=== PATIENT | female | born 1990 | race Caucasian/White ===

== ENCOUNTER → 2017-05-08 14:27 | Outpatient (CLI) | payer MEDICAID, SELFPAY | PROVIDERS: Family Provider Internal Medicine; PCP Internal Medicine; Visit Provider Physician Assistant | DX: J02.9 Acute pharyngitis, unspecified (principal) | CPT/HCPCS: 87081 ==

== ENCOUNTER 2017-05-28 15:42 | Emergency (ER) | payer MEDICAID, SELFPAY ==
[2017-05-28 15:42] VITALS: BP 159/96; PULSE 119; RESP 16; TEMP 36.4; O2SAT 100; BMI 41.0
--- NOTE | 2017-05-28 15:50 | RAD_ITS ---
STUDY: X-RAY - LEFT ANKLE REASON FOR EXAM: Female, 26 years old. Lateral ankle pain. TECHNIQUE: 3 view(s) of the ankle. COMPARISON: None. FINDINGS: Normal visualized distal tibia and fibula. Normal medial and lateral malleoli. Normal tibiotalar articulation and ankle mortise. Normal visualized talus and calcaneus. The visualized subtalar, talonavicular, calcaneocuboid and tarsal articulations are normal. Soft tissue swelling. RAD/Ankle min 3 Views IMPRESSION: Soft tissue swelling with no underlying bone or joint abnormality. Electronically Signed: Yamilet Fowler MD at 16:42 EDT , Service support ,
--- NOTE | 2017-05-28 15:55 | ED.DCSUM_ITS ---
- ER Visit Summary Date of Service: 05/28/17 Chief Complaint: Left ankle pain History of Present Illness: The patient is a 26 F who states that for the past 4 days she has had pain over the anterior lateral aspect of her left ankle. She denies any known trauma. She went to urgent care she tells me that they informed her that stops doing x-rays. She notes no history of gout or other arthropathies. She denies any fevers or rashes. Physical Examination: Afebrile vital signs are stable Minimal swelling and tenderness palpation over the lateral malleolus in the anterior joints. No fifth metatarsal pain. No fibular head pain there is no erythema. Neurovascular intact. Test Results: The ankle were obtained which were negative. Emergency Department Course and Treatment: She will use Pepe wrap ibuprofen and rest. Follow-up with her doctor if not improved in 14 days Impression: 1. Left ankle pain This note was generated with [employer] dictation software. It may contain incorrect words, spelling, and punctuation that were not noted in review of the chart prior to signing ED Disposition - Plan for ED Patient: Disposition: Home or Assisted Living Chief Complaint: Lower Extremity Injury Instructions: ED Sprain Ankle W X Ray Referrals: Jennifer Dia MD [Primary Care Provider] - 10-14 Days if not better
== END 2017-05-28 16:29 | disposition home or self-care (01) ==
LOC: ED 16:18
PROVIDERS: Emergency Provider Emergency Medicine; Family Provider Internal Medicine; PCP Internal Medicine
DX: M25.572 Pain in left ankle and joints of left foot (principal); Z79.51 Long term (current) use of inhaled steroids
CPT/HCPCS: 73610; 99282

== ENCOUNTER 2017-11-12 17:26 | Emergency (ER) | payer MEDICAID, SELFPAY ==
[2017-11-12 17:27] VITALS: BP 138/82; PULSE 102; RESP 18; TEMP 36.5; O2SAT 98; BMI 39.6
--- NOTE | 2017-11-12 18:19 | ED.VISSUMM ---
- ER Visit Summary Date of Service: 11/12/17 Chief Complaint: Back pain History of Present Illness: The patient is a [address] Dia. She has back pain that began 2 weeks ago. Says sharp pain in 7-10 currently and at worst. Is worsened by bending and sitting down. She taken Tylenol without relief. She has tingling in her right first and second toes that comes and goes. She denies any radiation to her legs. No problems with her bowels or her bladder. No groin numbness. Patient denies any recent trauma. No fall, MVA, or change in activity. Physical Examination: Vitals: Stable. Afebrile. General: A&O x 3. NAD. Cardiovascular exam: Regular rate and rhythm, no murmur, rub or gallop. Respiratory exam: Clear to auscultation bilaterally. No wheezes or stridor. Abdominal exam: Soft, nontender, nondistended, normal bowel sounds. No peritoneal signs. Back: Diffuse moderate tenderness to palpation over the lumbar spine and the paraspinous musculature in the lumbar region. No point tenderness. Negative straight leg bilaterally. 5/5 DF, PF, EHL bilaterally. Normal sensation to light touch throughout. Extremity: No clubbing, cyanosis, or edema. Emergency Department Course and Treatment: An [facility] report was obtained which shows she has had one prescription for opiates in the past year. She is treated with Toradol IM, Zofran and Hostetter p.o. She is resting comfortably. Treatment Plan: Patient will be discharged with Hostetter and naproxen. Instructed follow-up Dr. Dia in 1 week if not improving. Return to the emergency department for any worsening symptoms. Disposition: To home in improved and stable condition. Impression: 1. Low back pain, acute. This note was generated with [employer] dictation software. It may contain incorrect words, spelling, and punctuation that were not noted in review of the chart prior to signing ED Disposition - Plan for ED Patient: Disposition: Home or Assisted Living Chief Complaint: Back Instructions: ED Neck Back Pain General Prescriptions: Ondansetron [Zofran Odt] 4 mg PO Q8H PRN PRN #10 tablet PRN Reason: Nausea Hydrocodone/Acetaminophen [Hostetter 5-325 Tablet] 1 - 2 each PO 4X/DAY PRN PRN 3 Days #12 tablet PRN Reason: Pain Naproxen [Naprosyn] 500 mg PO BID #14 tablet Referrals: Jennifer Dia MD [Primary Care Provider] - 1 Week if not improving
--- NOTE | 2017-11-12 18:22 | ED.DCSUM_ITS ---
- ER Visit Summary Date of Service: 11/12/17 Chief Complaint: Back pain History of Present Illness: The patient is a [address] Dia. She has back pain that began 2 weeks ago. Says sharp pain in 7-10 currently and at worst. Is worsened by bending and sitting down. She taken Tylenol without relief. She has tingling in her right first and second toes that comes and goes. She denies any radiation to her legs. No problems with her bowels or her bladder. No groin numbness. Patient denies any recent trauma. No fall, MVA, or change in activity. Physical Examination: Vitals: Stable. Afebrile. General: A&O x 3. NAD. Cardiovascular exam: Regular rate and rhythm, no murmur, rub or gallop. Respiratory exam: Clear to auscultation bilaterally. No wheezes or stridor. Abdominal exam: Soft, nontender, nondistended, normal bowel sounds. No peritoneal signs. Back: Diffuse moderate tenderness to palpation over the lumbar spine and the paraspinous musculature in the lumbar region. No point tenderness. Negative straight leg bilaterally. 5/5 DF, PF, EHL bilaterally. Normal sensation to light touch throughout. Extremity: No clubbing, cyanosis, or edema. Emergency Department Course and Treatment: An [facility] report was obtained which shows she has had one prescription for opiates in the past year. She is treated with Toradol IM, Zofran and Alva p.o. She is resting comfortably. Treatment Plan: Patient will be discharged with Alva and naproxen. Instructed follow-up Dr. Dia in 1 week if not improving. Return to the emergency department for any worsening symptoms. Disposition: To home in improved and stable condition. Impression: 1. Low back pain, acute. This note was generated with [employer] dictation software. It may contain incorrect words, spelling, and punctuation that were not noted in review of the chart prior to signing ED Disposition - Plan for ED Patient: Disposition: Home or Assisted Living Chief Complaint: Back Instructions: ED Neck Back Pain General Prescriptions: Ondansetron [Zofran Odt] 4 mg PO Q8H PRN PRN #10 tablet PRN Reason: Nausea Hydrocodone/Acetaminophen [Alva 5-325 Tablet] 1 - 2 each PO 4X/DAY PRN PRN 3 Days #12 tablet PRN Reason: Pain Naproxen [Naprosyn] 500 mg PO BID #14 tablet Referrals: Jennifer Dia MD [Primary Care Provider] - 1 Week if not improving
[2017-11-12] MEDS: HYDROcodone Bitartrate/Apap 5/325 Tablet PO (18:24)
[2017-11-12] MEDS: Ketorolac 60 MG/2 ML Vial IM (18:25)
[2017-11-12] MEDS: Ondansetron ODT 4 MG Tablet PO (18:25)
[2017-11-12 18:55] VITALS: PULSE 90; RESP 16
== END 2017-11-12 18:56 | disposition home or self-care (01) ==
LOC: ED 18:21
PROVIDERS: Emergency Provider Emergency Medicine; Family Provider Internal Medicine; PCP Internal Medicine
DX: M54.5 Low back pain (principal)
CPT/HCPCS: 96372; 99283

== ENCOUNTER 2018-01-02 18:27 | Emergency (ER) | payer MEDICAID, SELFPAY ==
[2018-01-02 18:27] VITALS: BP 149/92; PULSE 107; RESP 18; TEMP 36.2; O2SAT 99; BMI 37.0
--- NOTE | 2018-01-02 18:38 | ED.VISSUMM ---
- ER Visit Summary Date of Service: 01/02/18 Chief Complaint: Skin rash and itching History of Present Illness: The patient is a 27 F no significant past medical history. Currently on no medications [id number] nor prescription. States about 1-2 hours ago developed a rash that is red in some places raised and itching. Denies any trouble breathing or swallowing. No swelling to her lips or tongue. No prior history. No known allergies. States she ate pizza today and drank some cola. Denies any new soaps, colognes or detergents. Physical Examination: Well-appearing young female. Vital signs are stable afebrile. Pulse ox 9 9% on room air no signs of hypoxia. No distress. H EENT exam unremarkable. Neck nontender no lymphadenopathy. Lungs clear to auscultation bilaterally. Heart regular rhythm no murmur. Abdomen soft nontender. She is moving all 4 extremities. They are neurovascularly intact. Back nontender. Neurologic exam normal. Skin she is a red rash on both upper extremities and her back. There are hives on her abdominal wall. There is no sloughing of skin. There is no petechiae or purpura. There are no vesicles. This is consistent with a generalized allergic reaction. Test Results: None Emergency Department Course and Treatment: Prednisone 60 mg here. Treatment Plan: Prednisone 40 mg daily until rash resolved. Benadryl for itching. Return if worse. Disposition: Discharge Impression: Acute generalized allergic reaction of uncertain etiology This note was generated with [employer] dictation software. It may contain incorrect words, spelling, and punctuation that were not noted in review of the chart prior to signing ED Disposition - Plan for ED Patient: Chief Complaint: Rash Referrals: Jennifer Dia MD [Primary Care Provider] -
--- NOTE | 2018-01-02 18:41 | ED.DCSUM_ITS ---
- ER Visit Summary Date of Service: 01/02/18 Chief Complaint: Skin rash and itching History of Present Illness: The patient is a 27 F no significant past medical history. Currently on no medications eizh-shi-kqwvles nor prescription. States about 1-2 hours ago developed a rash that is red in some places raised and itching. Denies any trouble breathing or swallowing. No swelling to her lips or tongue. No prior history. No known allergies. States she ate pizza today and drank some cola. Denies any new soaps, colognes or detergents. Physical Examination: Well-appearing young female. Vital signs are stable afebrile. Pulse ox 9 9% on room air no signs of hypoxia. No distress. H EENT exam unremarkable. Neck nontender no lymphadenopathy. Lungs clear to auscultation bilaterally. Heart regular rhythm no murmur. Abdomen soft nontender. She is moving all 4 extremities. They are neurovascularly intact. Back nontender. Neurologic exam normal. Skin she is a red rash on both upper extremities and her back. There are hives on her abdominal wall. There is no sloughing of skin. There is no petechiae or purpura. There are no vesicles. This is consistent with a generalized allergic reaction. Test Results: None Emergency Department Course and Treatment: Prednisone 60 mg here. Treatment Plan: Prednisone 40 mg daily until rash resolved. Benadryl for itching. Return if worse. Disposition: Discharge Impression: Acute generalized allergic reaction of uncertain etiology This note was generated with [employer] dictation software. It may contain incorrect words, spelling, and punctuation that were not noted in review of the chart prior to signing ED Disposition - Plan for ED Patient: Chief Complaint: Rash Referrals: Jennifer Dia MD [Primary Care Provider] -
--- NOTE | 2018-01-02 18:41 | ED.DEP ---
ED Disposition - Plan for ED Patient: Disposition: Home or Assisted Living Chief Complaint: Rash Instructions: ED Allergic Reaction General Other Prescriptions: Prednisone [Deltasone] 40 mg PO DAILY 6 Days tab Referrals: Jennifer Dia MD [Primary Care Provider] - As Needed Additional Instructions: Prednisone 40 mg once a day. May stop 1 day after rash is gone. Oral Benadryl for itching and will help resolve the rash. Return if worse or follow-up with your doctor.
[2018-01-02] MEDS: predniSONE 20 MG Tablet 60 MG PO (18:47)
[2018-01-02 18:53] VITALS: PULSE 99; RESP 17; O2SAT 99
== END 2018-01-02 18:53 | disposition home or self-care (01) ==
LOC: ED 18:50
PROVIDERS: Emergency Provider Emergency Medicine; Family Provider Internal Medicine; PCP Internal Medicine
DX: T78.40XA Allergy, unspecified, initial encounter (principal)
CPT/HCPCS: 99283

== ENCOUNTER 2018-04-05 16:33 | Emergency (ER) | payer MEDICAID, SELFPAY ==
[2018-04-05 16:34] VITALS: BP 166/98; PULSE 113; RESP 18; TEMP 36.4; O2SAT 98; BMI 41.0
[2018-04-05 16:43] VITALS: PULSE 127; RESP 18; O2SAT 99
--- NOTE | 2018-04-05 16:58 | RAD_ITS ---
STUDY: X-RAY CHEST REASON FOR EXAM: Female, 27 years old. Chest pain TECHNIQUE: Frontal and lateral views of the chest COMPARISON: 03/12/2017 FINDINGS: The lungs are clear. There are no pleural effusions. There is no pneumothorax. The heart is normal in size. The visualized osseous structures are within normal limits. RAD/Chest PA and Lateral IMPRESSION: No acute thoracic pathology. Electronically Signed: Dillon Busby, at 17:46 EST Tel , Service support ,
--- NOTE | 2018-04-05 16:58 | EKG12_ITS ---
Test Reason : GEN ILLNESS Blood Pressure : / mmHG Vent. Rate : 092 BPM Atrial Rate : 092 BPM P-R Int : 150 ms QRS Dur : 072 ms QT Int : 354 ms P-R-T Axes : 017 010 007 degrees QTc Int : 437 ms Normal sinus rhythm Nonspecific T wave abnormality Abnormal ECG Confirmed by WARREN ZHAO, SALEEM ([id number]), graphic editor GAUTAM ELLSWORTH ([id number]) on 04/11/2018 2:41:05 PM Referred By: KIKO Confirmed By:SALEEM KELLEY MD
[2018-04-05] MEDS: Aspirin 81 MG TAB.CHEW 324 MG PO (17:26)
[2018-04-05 17:35] LABS: Absolute Lymphocyte Count 4.99 X10^3/ul (0.83-4.51); Basophil# 0.02 X10^3/uL; Basophil% 0.2 % (0-1); Eosinophil# 0.37 X10^3/uL; Eosinophils% 3.1 % (0-5); Hematocrit 44.8 % (37-47); Hemoglobin 15.4 g/dl (12.0-15.0); Lymphocyte # 4.99 X10^3/ul (4.0); Lymphocyte % 41.2 % (19-41); Mean Corp Hgb Conc 34.4 g/gl (32-36); Mean Corpuscular Hgb 29.9 pg (27.0-32.0); Mean Platelet Vol. 9.3 fl (6.2-12.0); Monocyte# 0.66 X10^3/uL; Monocyte% 5.5 % (0-10); Neutrophil # 6.04 X10^3/uL (2.7-7.7); Neutrophil % 49.8 % (47-70); Platelet Count 321 K/mm3 (150-450); RBC Distribution Width CV 13.1 % (11.6-14.6); RBC Distribution Width SD 40.6 fl (35.1-43.9); Red Blood Count 5.15 M/mm3 (4.2-5.4); White Blood Count 12.1 K/mm3 (4.4-11.0)
[2018-04-05 17:36] LABS: POSITIVE COUNT NO; POSITIVE DIFFERENTIAL NO; POSITIVE MORPHOLOGY NO
[2018-04-05 17:51] LABS: Anion Gap 8 (5-15); BUN 11 mg/dL (7-18); BUN/Creat Ratio 14.1 RATIO (10-20); Calcium,Total 9.3 mg/dL (8.5-10.1); Chloride 107 mmol/L (98-107); Creatinine, Serum 0.78 mg/dL (0.55-1.02); EST Glomerular Filtration Rate 95 mL/min (>60); Est Glom Filt Rate - Afr Amer 114 mL/min (>60); Estimated Creatinine Clearance 78.51 ml/min; Glucose 95 mg/dL (74-106); Potassium 3.4 mmol/L (3.5-5.1); Sodium Level 141 mmol/L (136-145)
[2018-04-05 17:56] LABS: D-Dimer Quantitative (DVT/PE) 0.31 FEU/ug/m (0.27-0.49)
--- NOTE | 2018-04-05 18:40 | CT_ITS ---
STUDY: CTA CHEST REASON FOR EXAM: Female, 27 years old. Chest pain RADIATION DOSAGE (If Supplied By Facility): CTDIvol = ( 14.8 ) mGy, DLP = ( 669.97 ) mGycm TECHNIQUE: The examination was performed with the intravenous administration of 100 ml of Isovue 370 contrast material. Post-processing of the angiographic images was performed, with multiplanar reformation and 3D reconstruction. Individualized dose optimization techniques were used for this CT. COMPARISON: None. FINDINGS: Normal enhancement of the main pulmonary artery and right and left pulmonary arteries. Normal enhancement of the bilateral peripheral pulmonary arteries. There is no demonstrated pulmonary embolism. Normal thoracic aorta and visualized great vessels. There is no demonstrated aortic dissection. Normal heart and pericardium. Normal mediastinum. Normal hilar regions. Normal visualized trachea and bronchi. The lungs are well expanded. Normal pulmonary parenchyma. Normal pleura. Normal chest wall structures. Normal osseous structures. Normal visualized upper abdomen. CT/CTA Chest W/WO Contrast IMPRESSION: Normal CTA chest examination, without a demonstrated pulmonary embolism or arterial dissection. Electronically Signed: Dillon Busby, at 19:33 EST Tel , Service support ,
[2018-04-05] MEDS: 0.9% Normal Saline 1,000 ML 999 ML IV (19:07)
[2018-04-05 19:10] VITALS: BP 147/86; PULSE 99; RESP 18; O2SAT 95
[2018-04-05 19:16] LABS: Erythrocyte Sedimentation Rate 15 mm/hr (0-20)
--- NOTE | 2018-04-05 20:02 | ED.DCSUM_ITS ---
- ER Visit Summary Date of Service: 04/05/18 Chief Complaint: Chest pain History of Present Illness: The patient is a 27 F presenting for evaluation secondary to headache and chest pain. Patient reports that today she had an onset of a headache. This was gradual in onset, and is a generalized headache that was refractory to Tylenol. Patient reports that she then developed some anterior sharp chest pain. She reports that it is worse with breathing. Patient states that she has had a cough of the course last 3 days but denies any presence of fever. She denies any dyspnea. She denies any history of DVT or PE. Review of systems otherwise negative. Physical Examination: Vital signs are within normal limits except for tachycardia occasionally into the 120s, patient is afebrile. General: Patient is well-nourished well-developed and in no acute distress. Head: Normocephalic, atraumatic Eyes: Pupils equal round and reactive bilaterally, extra occular motion intact bialterally ENT: Moist mucous membranes Neck: Supple, no lymphadenopathy, no JVD, no meningismus CVS: Heart regular rate and rhythm, no murmurs, rubs or gallops, radial pulses 2+ bilaterally Resp: Respirations nondistressed, lung sounds clear bilaterally left anterior chest tenderness to palpation no evidence of skin changes or step-offs Abdomen: Soft, nontender, nondistended, no palpable masses, normal bowel sounds Back: Nontender Extremities: Nontender, atraumatic, active full range of motion, no peripheral edema Skin: warm, no rashes, no petechia Neuro: Alert and oriented x 4, CN 2-12 intact, no lateralizing neurological defecits Psyc: Normal affect Test Results: EKG demonstrates sinus rhythm at [address] segments normal T waves and normal intervals. CBC chemistry troponin unremarkable only for mild elevated white count of 12. D-dimer was found to be negative. Chest x-ray was negative. CT angiogram of the chest also found to be negative. Emergency Department Course and Treatment: Patient presented secondary to chest pain. She did have intermittent bouts of tachycardia where she would go up into the 120s and 130s, so I had a high suspicion for the possibility of pulmonary embolus. Workup as noted above is negative. Patient has no signs of endocarditis myocarditis PE pneumonia or any other serious etiology that would require further workup or treatment. Patient will be discharged with a course of NSAIDs and follow-up with her primary care physician. Disposition: Discharge Impression: 1. Chest pain This note was generated with [employer] dictation software. It may contain incorrect words, spelling, and punctuation that were not noted in review of the chart prior to signing ED Disposition - Plan for ED Patient: Chief Complaint: General Illness Diagnosis: Chest pain Instructions: ED Chest Pain NonCardiac Prescriptions: Naproxen [Naprosyn] 500 mg PO BID PRN #20 tab Referrals: Jennifer Dia MD [Primary Care Provider] - 3-5 Days
[2018-04-05 20:03] VITALS: BP 114/77; PULSE 92; RESP 15; O2SAT 94
== END 2018-04-05 20:09 | disposition home or self-care (01) ==
PROVIDERS: Emergency Provider Emergency Medicine; Family Provider Internal Medicine; PCP Internal Medicine
DX: R07.9 Chest pain, unspecified (principal)
CPT/HCPCS: 71046; 71275; 80048; 84484; 85025; 85379; 85652; 93005; 96360; 99285; J7030; Q9967; A4216

== ENCOUNTER 2018-04-08 18:52 | Observation (INO) | payer MEDICAID, SELFPAY ==
[2018-04-08] VITALS (7 sets, daily range): BP systolic 133–167; BP diastolic 74–107; PULSE 90–109; RESP 15–26; TEMP 36.6; O2SAT 98–100; BMI 39.8
--- NOTE | 2018-04-08 19:07 | EKG12_ITS ---
Test Reason : CHEST OTHER Blood Pressure : / mmHG Vent. Rate : 092 BPM Atrial Rate : 092 BPM P-R Int : 154 ms QRS Dur : 072 ms QT Int : 354 ms P-R-T Axes : 025 010 022 degrees QTc Int : 437 ms Normal sinus rhythm Nonspecific T wave abnormality Abnormal ECG Confirmed by WARREN ZHAO, SALEEM ([id number]), video news editor GAUTAM ELLSWORTH ([id number]) on 04/13/2018 8:23:30 AM Referred By: MR Confirmed By:SALEEM KELLEY MD
[2018-04-08] MEDS: 0.9% Normal Saline 1,000 ML 1000 ML IV (19:17)
[2018-04-08] MEDS: Mag Hydrox/Al Hydrox/Simeth 30 ML UDC PO (19:17)
--- NOTE | 2018-04-08 19:32 | RAD_ITS ---
STUDY: X-RAY CHEST REASON FOR EXAM: Female, 27 years old. Chest pain TECHNIQUE: PA and lateral views of the chest. COMPARISON: 04/05/2018 FINDINGS: The lungs are clear and expanded. There is no demonstrated pleural abnormality. Normal size heart. Normal mediastinum and freda. Normal visualized pulmonary arteries. Normal visualized aortic arch and descending thoracic aorta. Normal visualized thoracic spine. Normal visualized ribs, clavicles, and shoulders. There is no demonstrated abnormality of the visualized soft tissue structures of the upper abdomen. RAD/Chest PA and Lateral IMPRESSION: Normal x-ray examination of the chest. Electronically Signed: Kyle Reyes DO at 20:49 EST Tel , Service support ,
[2018-04-08 20:00] LABS: ALB/GLOB Ratio 1.2 RATIO (0.9-2.4); AST(SGOT) 15 U/L (15-37); Alanine Aminotransfer ALT/SGPT 25 U/L (13-56); Albumin, Serum 4.4 g/dL (3.2-5.0); Alkaline Phosphatase 77 U/L (45-117); Anion Gap 10 (5-15); BUN 9 mg/dL (7-18); BUN/Creat Ratio 12.1 RATIO (10-20); CRP 7.53 mg/L (0.0-3.0); Calcium,Total 8.6 mg/dL (8.5-10.1); Chloride 106 mmol/L (98-107); Creatinine, Serum 0.74 mg/dL (0.55-1.02); EST Glomerular Filtration Rate 100 mL/min (>60); Est Glom Filt Rate - Afr Amer 121 mL/min (>60); Estimated Creatinine Clearance 82.75 ml/min; Globulin 3.7 g/dL (2.2-4.2); Glucose 94 mg/dL (74-106); Lipase 216 U/L (73-393); Potassium 3.1 mmol/L (3.5-5.1); Protein, Total 8.1 g/dL (6.4-8.2); Sodium Level 140 mmol/L (136-145)
[2018-04-08 20:28] LABS: Absolute Lymphocyte Count 5.84 X10^3/ul (0.83-4.51); Absolute Neutrophil Count 7.9 X10^3/uL (2.0-7.7); Basophil# 0.01 X10^3/uL; Basophil% 0.1 % (0-1); Eosinophil# 0.36 X10^3/uL; Eosinophils% 2.4 % (0-5); Hematocrit 41.3 % (37-47); Hemoglobin 14.1 g/dl (12.0-15.0); Lymphocyte # 5.84 X10^3/ul (4.0); Lymphocyte % 39.2 % (19-41); Mean Corp Hgb Conc 34.1 g/gl (32-36); Mean Corpuscular Hgb 29.8 pg (27.0-32.0); Mean Corpuscular Volume 87.3 fL (81-99); Mean Platelet Vol. 9.4 fl (6.2-12.0); Monocyte# 0.69 X10^3/uL; Monocyte% 4.6 % (0-10); Neutrophil # 7.94 X10^3/uL (2.7-7.7); Neutrophil % 53.4 % (47-70); Platelet Count 323 K/mm3 (150-450); RBC Distribution Width CV 12.8 % (11.6-14.6); RBC Distribution Width SD 41.2 fl (35.1-43.9); Red Blood Count 4.73 M/mm3 (4.2-5.4); White Blood Count 14.9 K/mm3 (4.4-11.0)
[2018-04-08 20:30] LABS: Differential Indicated SCAN CRITERIA MET; POSITIVE COUNT YES; POSITIVE DIFFERENTIAL YES; POSITIVE MORPHOLOGY YES
[2018-04-08 20:35] LABS: Erythrocyte Sedimentation Rate 21 mm/hr (0-20)
[2018-04-08 20:47] LABS: Anisocytosis RARE; Platelet Estimate ADEQUATE (ADEQ)
--- NOTE | 2018-04-08 21:25 | PCM.HP.STD ---
Problem List (1) Chest pain Status: Acute (2) Obesity (BMI 35.0-39.9 without comorbidity) Status: Acute History of Present Illness Date of Admission: 04/08/18 Chief Complaint: Chest pain since Tuesday The patient is a 27 year old F with no significant past medical history except obesity BMI 39.8 came to ER on 04/05/2018 for chest pain. At that time, troponin was negative and chest x-ray and CT angiogram was done and did not show acute cardiopulmonary disease. Patient was discharged on naproxen for clinical diagnosis of pleurisy. She came back with no relief and describes her chest pain as sharp midsternal and has the same time tightness and heaviness, gets worse on walking, coughing and deep breathing and feels her heart pounding coming out of chest. She denies any family history of coronary artery disease. [] In ED, WBC is elevated 14.9 thousand, neutrophil 53, lymphocyte 40%. ESR and CRP elevated. K3.1. lipase normal. Chest x-ray is normal. EKG normal sinus rhythm at [address] deviation typical of acute pericarditis or ACS. Past Medical History Allergies No Known Drug Allergies Allergy (Verified 04/08/18 18:55) Other Home Medications: Ambulatory Orders Medication Instructions Recorded Naproxen [Naprosyn] 500 mg PO BID PRN #20 tab 04/05/18 Surgical History: Surgical History (Last Reviewed 09/01/17 @ 15:13 by Katelin Fletcher) History of Z98.891 History of carpal tunnel surgery Z92.89 Smoking Status: Current every day smoker - *Family History Paternal History Items: No pertinent history - No cardiac history in first-degree family relative Review of Systems Constitutional: Denies: Chills, Fever, Weight Change HEENT: Denies: Head Aches, Sinus Congestion, Sinus Drainage Cardiovascular: Reports: Chest Pain, Chest Tightness, Palpitations. Denies: Edema, Orthopnea, Syncope Respiratory: Denies: Cough, Shortness of Breath, Shortness of breath at rest, Sputum production Gastrointestinal: Denies: Abdominal Pain, Nausea, Vomiting Genitourinary: Denies: Dysuria Musculoskeletal: Denies: Joint Pain, Joint Tenderness Skin: Denies: Rash, Wounds Neurological: Denies: Numbness, Tingling, Focal weakness Psychiatric: Denies: Anxiety, Depression, Homicidal Ideations, Suicidal Ideations Hematologic/ Lymphatic: Denies: Easy Bruising, Easy Bleeding VTE Information - Inpt Only VTE Present on Admission: No VTE Mechan Device Prophylaxis: None Reason prophylaxis not ordered:: Procedure Not Indicated Patient Problems: Active and Suspected Problems (Last Reviewed 09/01/17 @ 15:13 by Katelin Fletcher) Chest pain (Acute) Obesity (BMI 35.0-39.9 without comorbidity) (Acute) - Physical Exam General: Alert, Oriented x3, Cooperative HEENT: Atraumatic, PERRLA, EOMI, Normocephalic Neck: Supple, No JVD, Negative Carotid Bruits Lungs: Clear to auscultation, Normal air movement, No rhonchi, No wheeze, No rales Cardiovascular: Regular rate, Regular Rhythm, Normal S1, Normal S2, No murmurs, No rub noted, No Gallop, - - No pleural rub auscultated Abdomen: Bowel Sounds Present, Soft, Non Tender, Non-Distended Extremities: No edema, Capillary Refill Less than 3 Seconds Skin: No rashes, No breakdown Musculoskeletal: No Tenderness to Palpation of Joints or Extremities Neurological: Cranial nerves II-XII grossly intact, Deep Tendon Reflexes 2+/4 and Symmetrical, Neuro grossly intact Psych/Mental Status: Normal Affect, Appropriate Vital Signs Temp Pulse Resp BP Pulse Ox 97.8 F 90 22 H 133/83 H 100 04/08/18 18:53 04/08/18 20:48 04/08/18 20:48 04/08/18 20:48 04/08/18 20:48 Oxygen Delivery Method Room Air Weight: 204 lb Body Mass Index (BMI) 39.8 Laboratory Tests Past 24 Hrs 04/08/18 04/08/18 04/08/18 19:15 19:15 20:15 WBC Cancelled 14.9 H Corrected WBC Cancelled RBC Cancelled 4.73 Hgb Cancelled 14.1 Hct Cancelled 41.3 MCV Cancelled 87.3 MCH Cancelled 29.8 MCHC Cancelled 34.1 RDW Cancelled 12.8 RDW Differential Cancelled 41.2 Plt Count Cancelled 323 MPV Cancelled 9.4 Immature Gran % (Auto) Cancelled 0.300 Neut % (Auto) Cancelled 53.4 Lymph % (Auto) Cancelled 39.2 [place] % (Auto) Cancelled 4.6 Eos % (Auto) Cancelled 2.4 Baso % (Auto) Cancelled 0.1 Absolute Neuts (auto) Cancelled 7.9 H Absolute Lymphs (auto) Cancelled 5.84 H Total Counted Cancelled Not Reportable Neutrophils % (Manual) Cancelled Band Neutrophils % Cancelled Lymphocytes % (Manual) Cancelled Monocytes % (Manual) Cancelled Eosinophils % (Manual) Cancelled Basophils % (Manual) Cancelled Metamyelocytes % Cancelled Myelocytes % Cancelled Promyelocytes % Cancelled Blast Cells % Cancelled Plasma Cell % (Manual) Cancelled Other Cells % Cancelled Nucleated RBCs/100 WBC Cancelled Differential Comment Cancelled SEE COMMENT Diff Path Review Cancelled May foll Hypersegmented Neuts Cancelled Atypical Lymphocytes Cancelled Reactive Lymphocytes Cancelled Smudge Cells Cancelled Toxic Granulation Cancelled Dohle Bodies Cancelled Lakeshia Rods Cancelled Platelet Estimate Cancelled ADEQUATE Plt Morphology Comment Cancelled RBC Morphology Cancelled Polychromasia Cancelled Hypochromasia Cancelled Poikilocytosis Cancelled Basophilic Stippling Cancelled Anisocytosis Cancelled RARE Microcytosis Cancelled Macrocytosis Cancelled Spherocytes Cancelled Sickle Cells Cancelled Target Cells Cancelled Tear Drop Cells Cancelled Ovalocytes Cancelled Stomatocytes Cancelled Jim[place] Bodies Cancelled [place] Cells Cancelled Bite Cells Cancelled Acanthocytes (Spur) Cancelled Rouleaux Cancelled Schistocytes Cancelled ESR Cancelled 21 H Sodium 140 Potassium 3.1 L Chloride 106 Carbon Dioxide 24.0 Anion Gap 10 BUN 9 Creatinine 0.74 Estim Creat Clear Calc 82.75 Est GFR (MDRD) Af Amer 121 Est GFR (MDRD) Non-Af 100 BUN/Creatinine Ratio 12.1 Glucose 94 Calcium 8.6 Total Bilirubin 0.60 AST 15 ALT 25 Alkaline Phosphatase 77 Troponin I < 0.015 C-React Prot Ext Range 7.53 H Total Protein 8.1 Albumin 4.4 Globulin 3.7 Albumin/Globulin Ratio 1.2 Lipase 216 Assessment/Plan All Active Problems (Last Reviewed 09/01/17 @ 15:13 by Katelin Fletcher) Chest pain (Acute) Obesity (BMI 35.0-39.9 without comorbidity) (Acute) Abdominal pain (Acute) he patient is a 27 year old F with no significant past medical history except obesity BMI 39.8 came to ER on 04/05/2018 for chest pain. At that time, troponin was negative and chest x-ray and CT angiogram was done and did not show acute cardiopulmonary disease. Patient was discharged on naproxen for clinical diagnosis of pleurisy. She came back with no relief and describes her chest pain as sharp midsternal and has the same time tightness and heaviness, gets worse on walking, coughing and deep breathing and feels her heart pounding coming out of chest. Chest pain is persistent since 04/05 she denies any family history of coronary artery disease. [] In ED, WBC is elevated 14.9 thousand, neutrophil 53, lymphocyte 40%. ESR and CRP elevated. K3.1. lipase normal. Chest x-ray is normal. EKG normal sinus rhythm at [address] deviation typical of acute pericarditis or ACS. 1. Atypical chest pain: It seems most probably she has acute pleuropericarditis. Discussed with the patient accounts clerk Dr. Garcia. It seems unlikely acute coronary syndrome as a troponin would have been high since he has chest pain for 4 days. Aspirin 325 mg now and then 81 mg from tomorrow a.m. Toradol 30 mg IV now to see the relief. Ibuprofen 800 mg 3 times daily from tomorrow morning. 2D echo and treadmill nuclear stress test most probably will be done on Tuesday. If further concern, can call or consult Dr. Garcia. 2. Obesity grade 3: Weight loss counseling done. DVT prophylaxis: Low risk. Early ambulation encouraged. Code Visit OBSV E&M: [id number] Initial observation care L3
--- NOTE | 2018-04-08 22:33 | EKG12_ITS ---
Test Reason : CP ADMIT Blood Pressure : / mmHG Vent. Rate : 083 BPM Atrial Rate : 083 BPM P-R Int : 156 ms QRS Dur : 072 ms QT Int : 384 ms P-R-T Axes : 025 009 018 degrees QTc Int : 451 ms Normal sinus rhythm Normal ECG Confirmed by WARREN ZHAO, SALEEM ([id number]), avid editor GAUTAM ELLSWORTH ([id number]) on 04/13/2018 8:34:39 AM Referred By: DR DROANTES Confirmed By:SALEEM KELLEY MD
[2018-04-08] MEDS: Aspirin E.C. 325 MG Tablet PO (23:05)
[2018-04-08] MEDS: Ketorolac 30 MG/ML Syringe IV (23:09)
[2018-04-08] MEDS: Pantoprazole Sodium 40 MG Tablet PO (23:31)
--- NOTE | 2018-04-08 23:51 | ED.VISSUMM ---
- ER Visit Summary Date of Service: 04/08/18 Chief Complaint: Chest pain History of Present Illness: The patient is a 27 F presenting for evaluation secondary chest pain. Patient states that 4 days ago she had an onset of a headache that did not seem to alleviate by Tylenol. Patient reports that she was driving and she then had a sudden onset of sharp chest pain that radiated somewhat through to her back. Patient states that it has been a continuous pain ever since then. She was seen in the emergency department for this, had a workup including CT scan and was discharged with a course of anti-inflammatories. Patient reports that she has had continuous symptoms. Pain is worse with movement date breathing eating. She does report that she feels mildly short of breath secondary to an inability to take a deep breath. She denies any DVT or PE risk factors. She is not an IV drug user. Review of systems otherwise negative. Physical Examination: Vital signs are within normal limits except for mild tachycardia 109, patient is afebrile. General: Patient is well-nourished well-developed and in no acute distress. Head: Normocephalic, atraumatic Eyes: Pupils equal round and reactive bilaterally, extra occular motion intact bialterally ENT: Moist mucous membranes Neck: Supple, no lymphadenopathy, no JVD, no meningismus CVS: Heart regular rate and rhythm, no murmurs, rubs or gallops, radial pulses 2+ bilaterally Resp: Respirations nondistressed, lung sounds clear bilaterally Abdomen: Soft, nontender, nondistended, no palpable masses, normal bowel sounds Back: Nontender Extremities: Nontender, atraumatic, active full range of motion, no peripheral edema Skin: warm, no rashes, no petechia Neuro: Alert and oriented x 4, CN 2-12 intact, no lateralizing neurological defecits Psyc: Normal affect Test Results: EKG demonstrates sinus rhythm at 92 nonspecific T changes no changes prior EKG. PA lateral chest x-ray negative. CBC shows leukocytosis of 14, chemistry liver and lipase are negative, troponin is negative, ESR and CRP are unremarkable. Emergency Department Course and Treatment: Patient is presenting again secondary to chest pain. Actually saw the patient at the prior visit, and performed a extensive workup on the patient. I brought in my differential to abdominal complaints at this time, and still did not find significant etiology for cause of her pain. Patient was given a GI cocktail and a liter normal saline did not improvement. Patient does not appear to have evidence of endocarditis or myocarditis, but I still do not have a reason for her pain and she intermittently gets tachycardic into the 120s a believe she requires admission. Disposition: Admission Impression: 1. Chest pain 2. Leukocytosis This note was generated with [employer] dictation software. It may contain incorrect words, spelling, and punctuation that were not noted in review of the chart prior to signing ED Disposition - Plan for ED Patient: Disposition: Acute Care Hospital [facility] Chief Complaint: Chest Other
--- NOTE | 2018-04-08 23:54 | ED.DCSUM_ITS ---
- ER Visit Summary Date of Service: 04/08/18 Chief Complaint: Chest pain History of Present Illness: The patient is a 27 F presenting for evaluation secondary chest pain. Patient states that 4 days ago she had an onset of a headache that did not seem to alleviate by Tylenol. Patient reports that she was driving and she then had a sudden onset of sharp chest pain that radiated somewhat through to her back. Patient states that it has been a continuous pain ever since then. She was seen in the emergency department for this, had a workup including CT scan and was discharged with a course of anti- inflammatories. Patient reports that she has had continuous symptoms. Pain is worse with movement date breathing eating. She does report that she feels mildly short of breath secondary to an inability to take a deep breath. She denies any DVT or PE risk factors. She is not an IV drug user. Review of systems otherwise negative. Physical Examination: Vital signs are within normal limits except for mild tachycardia 109, patient is afebrile. General: Patient is well-nourished well-developed and in no acute distress. Head: Normocephalic, atraumatic Eyes: Pupils equal round and reactive bilaterally, extra occular motion intact bialterally ENT: Moist mucous membranes Neck: Supple, no lymphadenopathy, no JVD, no meningismus CVS: Heart regular rate and rhythm, no murmurs, rubs or gallops, radial pulses 2+ bilaterally Resp: Respirations nondistressed, lung sounds clear bilaterally Abdomen: Soft, nontender, nondistended, no palpable masses, normal bowel sounds Back: Nontender Extremities: Nontender, atraumatic, active full range of motion, no peripheral edema Skin: warm, no rashes, no petechia Neuro: Alert and oriented x 4, CN 2-12 intact, no lateralizing neurological defecits Psyc: Normal affect Test Results: EKG demonstrates sinus rhythm at 92 nonspecific T changes no changes prior EKG. PA lateral chest x-ray negative. CBC shows leukocytosis of 14, chemistry liver and lipase are negative, troponin is negative, ESR and CRP are unremarkable. Emergency Department Course and Treatment: Patient is presenting again secondary to chest pain. Actually saw the patient at the prior visit, and performed a extensive workup on the patient. I brought in my differential to abdominal complaints at this time, and still did not find significant etiology for cause of her pain. Patient was given a GI cocktail and a liter normal saline did not improvement. Patient does not appear to have evidence of endocarditis or myocarditis, but I still do not have a reason for her pain and she intermittently gets tachycardic into the 120s a believe she requires admission. Disposition: Admission Impression: 1. Chest pain 2. Leukocytosis This note was generated with [employer] dictation software. It may contain incorrect words, spelling, and punctuation that were not noted in review of the chart prior to signing ED Disposition - Plan for ED Patient: Disposition: Acute Care Hospital [facility] Chief Complaint: Chest Other
[2018-04-09] MEDS: Ibuprofen 400 MG Tablet 800 MG PO ×3 (01:44→12:11)
[2018-04-09 03:04] VITALS: PULSE 79
[2018-04-09 04:40] VITALS: BP 133/79; PULSE 77; RESP 16; TEMP 36.6; O2SAT 98
[2018-04-09 05:58] LABS: Absolute Neutrophil Count 7.4 X10^3/uL (2.0-7.7); Basophil# 0.02 X10^3/uL; Basophil% 0.2 % (0-1); Eosinophils% 2.3 % (0-5); Hematocrit 39.9 % (37-47); Hemoglobin 13.3 g/dl (12.0-15.0); Lymphocyte % 37.6 % (19-41); Mean Corp Hgb Conc 33.3 g/gl (32-36); Mean Corpuscular Hgb 29.3 pg (27.0-32.0); Mean Corpuscular Volume 87.9 fL (81-99); Mean Platelet Vol. 9.6 fl (6.2-12.0); Monocyte# 0.58 X10^3/uL; Monocyte% 4.4 % (0-10); Neutrophil # 7.37 X10^3/uL (2.7-7.7); Neutrophil % 55.3 % (47-70); Platelet Count 297 K/mm3 (150-450); RBC Distribution Width CV 12.9 % (11.6-14.6); RBC Distribution Width SD 40.5 fl (35.1-43.9); Red Blood Count 4.54 M/mm3 (4.2-5.4); White Blood Count 13.3 K/mm3 (4.4-11.0)
[2018-04-09 06:04] LABS: POSITIVE COUNT NO; POSITIVE DIFFERENTIAL NO; POSITIVE MORPHOLOGY NO
[2018-04-09 06:23] LABS: Anion Gap 10 (5-15); BUN 8 mg/dL (7-18); BUN/Creat Ratio 10.9 RATIO (10-20); Calcium,Total 8.8 mg/dL (8.5-10.1); Chloride 110 mmol/L (98-107); Cholesterol 214 mg/dL (200); Creatinine, Serum 0.74 mg/dL (0.55-1.02); EST Glomerular Filtration Rate 101 mL/min (>60); Est Glom Filt Rate - Afr Amer 122 mL/min (>60); Estimated Creatinine Clearance 82.75 ml/min; Glucose 85 mg/dL (74-106); High Density Lipoprotein 34 mg/dL; Magnesium 2.1 mg/dL (1.6-2.6); Potassium 4.3 mmol/L (3.5-5.1); Sodium Level 143 mmol/L (136-145); Thyroid Stim Hormone (TSH) 1.71 uIU/mL (0.358-3.74); Triglycerides 187 mg/dL; Very Low Density Lipoprotein 37 mg/dL (5-40)
[2018-04-09 08:24] VITALS: PULSE 98
[2018-04-09 08:50] VITALS: BP 139/68; PULSE 91; RESP 16; TEMP 36.3; O2SAT 100
[2018-04-09] MEDS: Pantoprazole Sodium 40 MG Tablet PO (08:50)
[2018-04-09] MEDS: Aspirin E.C. 81 MG Tablet PO (08:50)
--- NOTE | 2018-04-09 11:19 | DCINST_ITS ---
- Discharge Diagnoses Current Active Problems: Current Active and Chronic Problems (Last Reviewed 09/01/17 @ 15:13 by Katelin Fletcher) Chest pain (Acute) Obesity (BMI 35.0-39.9 without comorbidity) (Acute) Reason(s) for Visit for Discharge Instructions: chest pain You will use the following diet at home:: Cardiac Your food should be the consistency of: Regular Your liquids should be the consistency of: Regular/Thin Discharge Activity: Return to Normal Activity Additional Instructions: Continue on a low fat diet as your cholesterol panel was elevated in the hospital. You need a repeat cholesterol test in 6-8 weeks after you follow a low salt diet. You should continue to use Ibuprofen or naprosyn as needed for pain. Follow-up with your primary care doctor within 1 week, if still having chest pain. Allergies/Adverse Reactions: Allergies No Known Drug Allergies Allergy (Verified 04/08/18 18:55) Other Medications to take at Discharge Naproxen [Naprosyn] 500 mg PO BID PRN #20 tab 04/05/18 Pantoprazole Sodium [Protonix] 40 mg PO DAILY #30 tab 04/09/18 The following prescriptions were given: Pantoprazole Sodium [Protonix] 40 mg PO DAILY #30 tab Primary Care Physician: Jennifer Dia MD [Primary Care Provider] - Please follow up with your Primary Care Physician in: within 1 week Test Results: Test results from this visit will be discussed in further detail at your follow- up appointment, if applicable. Proposed Discharge Date: 04/09/18
--- NOTE | 2018-04-09 11:48 | PCM.DC.SUM ---
Discharge Date and Diagnosis - Problem List Patient Problems: Active and Suspected Problems (Last Reviewed 09/01/17 @ 15:13 by Katelin Fletcher) Chest pain (Acute) Obesity (BMI 35.0-39.9 without comorbidity) (Acute) Date of Admission: 04/08/18 Date of Discharge: 04/09/18 - Primary Discharge Diagnosis Active and Suspected Problems (Last Reviewed 09/01/17 @ 15:13 by Katelin Fletcher) Chest pain (Acute), musculoskeletal, noncardiac Obesity (BMI 35.0-39.9 without comorbidity) (Acute) Hospital Course and Treatment Imaging Results: 04/09/18 05:55 Echo Complete [ECHO] AM (NON MEDS) Nuclear Stress Test - Treadmil [NM] AM (NON MEDS) Clinical Impression(s) from Imaging Studies Chest X-Ray 04/08/18 19:32 IMPRESSION: Normal x-ray examination of the chest. Electronically Signed: Kyle Reyes DO at 20:49 EST Tel , Service support , None Operations: None Procedures: None Summary of Care Provided: The patient is a 27 year old F with no significant past medical history except for obesity comes in with complaints of chest pain. Patient was seen in the ED, EKG was negative for any acute ST-T changes. Troponins were negative. CT angiogram did not show any acute PE. Patient was admitted to the telemetry bed, monitored overnight with no acute events. Troponins x3 were negative. Patient continued to improve, vitals were stable. She had reproducible chest pain. She was discharged home on ibuprofen and Naprosyn as needed. She was asked to follow-up with a primary care doctor within a week if the chest pain persists. Patient's lipid profile was elevated, asked to be on low-fat diet and repeated lipid panel in 6-8 weeks. Patient Problems: Active and Suspected Problems (Last Reviewed 09/01/17 @ 15:13 by Katelin Fletcher) Chest pain (Acute) Obesity (BMI 35.0-39.9 without comorbidity) (Acute) Subjective: Patient was seen and examined. Complains of chest wall, midsternal, worse when she palpates, denies any dizziness or palpitations or leg swelling. No acute events overnight. No acute events on telemetry. - Physical Exam General: Alert, Oriented x3, Cooperative, No apparent distress, - - obese HEENT: Atraumatic, PERRLA, EOMI, Normocephalic Oral: Moist Mucosa Neck: Supple, No JVD, Negative Carotid Bruits Lungs: Clear to auscultation, Normal air movement Cardiovascular: Regular rate, Regular Rhythm, Normal S1, Normal S2, No murmurs Abdomen: Bowel Sounds Present, Soft, Non Tender, Non-Distended, No Hepato-splenomegaly Extremities: No edema Skin: No rashes, No breakdown Musculoskeletal: No Tenderness to Palpation of Joints or Extremities Lymphatic: No Cervical, Supraclavicular, or Inguinal Adenopathy Neurological: Cranial nerves II-XII grossly intact, Neuro grossly intact Psych/Mental Status: Normal Affect, Appropriate Vital Signs Temp Pulse Resp BP Pulse Ox 97.9 F 98 16 133/79 H 98 04/09/18 04:40 04/09/18 08:24 04/09/18 04:40 04/09/18 04:40 04/09/18 04:40 Oxygen Delivery Method Room Air Weight: 92.5 kg Body Mass Index (BMI) 39.8 Intake and Output for Last 24 Hours 04/07/18 04/08/18 04/09/18 23:59 23:59 23:59 Intake Total 100 / 100 Balance 100 / 100 Laboratory Tests Past 24 Hrs 04/08/18 04/08/18 04/08/18 19:15 19:15 20:15 WBC Cancelled 14.9 H Corrected WBC Cancelled RBC Cancelled 4.73 Hgb Cancelled 14.1 Hct Cancelled 41.3 MCV Cancelled 87.3 MCH Cancelled 29.8 MCHC Cancelled 34.1 RDW Cancelled 12.8 RDW Differential Cancelled 41.2 Plt Count Cancelled 323 MPV Cancelled 9.4 Immature Gran % (Auto) Cancelled 0.300 Neut % (Auto) Cancelled 53.4 Lymph % (Auto) Cancelled 39.2 [place] % (Auto) Cancelled 4.6 Eos % (Auto) Cancelled 2.4 Baso % (Auto) Cancelled 0.1 Absolute Neuts (auto) Cancelled 7.9 H Absolute Lymphs (auto) Cancelled 5.84 H Total Counted Cancelled Not Reportable Neutrophils % (Manual) Cancelled Band Neutrophils % Cancelled Lymphocytes % (Manual) Cancelled Monocytes % (Manual) Cancelled Eosinophils % (Manual) Cancelled Basophils % (Manual) Cancelled Metamyelocytes % Cancelled Myelocytes % Cancelled Promyelocytes % Cancelled Blast Cells % Cancelled Plasma Cell % (Manual) Cancelled Other Cells % Cancelled Nucleated RBCs/100 WBC Cancelled Differential Comment Cancelled SEE COMMENT Diff Path Review Cancelled May foll Hypersegmented Neuts Cancelled Atypical Lymphocytes Cancelled Reactive Lymphocytes Cancelled Smudge Cells Cancelled Toxic Granulation Cancelled Dohle Bodies Cancelled Lakeshia Rods Cancelled Platelet Estimate Cancelled ADEQUATE Plt Morphology Comment Cancelled RBC Morphology Cancelled Polychromasia Cancelled Hypochromasia Cancelled Poikilocytosis Cancelled Basophilic Stippling Cancelled Anisocytosis Cancelled RARE Microcytosis Cancelled Macrocytosis Cancelled Spherocytes Cancelled Sickle Cells Cancelled Target Cells Cancelled Tear Drop Cells Cancelled Ovalocytes Cancelled Stomatocytes Cancelled [place] Bodies Cancelled Bella Cells Cancelled Bite Cells Cancelled Acanthocytes (Spur) Cancelled Rouleaux Cancelled Schistocytes Cancelled ESR Cancelled 21 H Sodium 140 Potassium 3.1 L Chloride 106 Carbon Dioxide 24.0 Anion Gap 10 BUN 9 Creatinine 0.74 Estim Creat Clear Calc 82.75 Est GFR (MDRD) Af Amer 121 Est GFR (MDRD) Non-Af 100 BUN/Creatinine Ratio 12.1 Glucose 94 Calcium 8.6 Magnesium Total Bilirubin 0.60 AST 15 ALT 25 Alkaline Phosphatase 77 Troponin I < 0.015 C-React Prot Ext Range 7.53 H Total Protein 8.1 Albumin 4.4 Globulin 3.7 Albumin/Globulin Ratio 1.2 Triglycerides Cholesterol LDL Cholesterol VLDL Cholesterol HDL Cholesterol Lipase 216 TSH 04/08/18 04/09/18 04/09/18 22:48 01:10 05:06 WBC 13.3 H Corrected WBC RBC 4.54 Hgb 13.3 Hct 39.9 MCV 87.9 MCH 29.3 MCHC 33.3 RDW 12.9 RDW Differential 40.5 Plt Count 297 MPV 9.6 Immature Gran % (Auto) 0.200 Neut % (Auto) 55.3 Lymph % (Auto) 37.6 [place] % (Auto) 4.4 Eos % (Auto) 2.3 Baso % (Auto) 0.2 Absolute Neuts (auto) 7.4 Absolute Lymphs (auto) 5.00 H Total Counted Not Reportable Neutrophils % (Manual) Band Neutrophils % Lymphocytes % (Manual) Monocytes % (Manual) Eosinophils % (Manual) Basophils % (Manual) Metamyelocytes % Myelocytes % Promyelocytes % Blast Cells % Plasma Cell % (Manual) Other Cells % Nucleated RBCs/100 WBC Differential Comment Diff Path Review Hypersegmented Neuts Atypical Lymphocytes Reactive Lymphocytes Smudge Cells Toxic Granulation Dohle Bodies Lakeshia Rods Platelet Estimate Plt Morphology Comment RBC Morphology Polychromasia Hypochromasia Poikilocytosis Basophilic Stippling Anisocytosis Microcytosis Macrocytosis Spherocytes Sickle Cells Target Cells Tear Drop Cells Ovalocytes Stomatocytes [place] Bodies [place] Cells Bite Cells Acanthocytes (Spur) Rouleaux Schistocytes ESR Sodium Potassium Chloride Carbon Dioxide Anion Gap BUN Creatinine Estim Creat Clear Calc Est GFR (MDRD) Af Amer Est GFR (MDRD) Non-Af BUN/Creatinine Ratio Glucose Calcium Magnesium Total Bilirubin AST ALT Alkaline Phosphatase Troponin I < 0.015 < 0.015 C-React Prot Ext Range Total Protein Albumin Globulin Albumin/Globulin Ratio Triglycerides Cholesterol LDL Cholesterol VLDL Cholesterol HDL Cholesterol Lipase TSH 04/09/18 05:06 WBC Corrected WBC RBC Hgb Hct MCV MCH MCHC RDW RDW Differential Plt Count MPV Immature Gran % (Auto) Neut % (Auto) Lymph % (Auto) [place] % (Auto) Eos % (Auto) Baso % (Auto) Absolute Neuts (auto) Absolute Lymphs (auto) Total Counted Neutrophils % (Manual) Band Neutrophils % Lymphocytes % (Manual) Monocytes % (Manual) Eosinophils % (Manual) Basophils % (Manual) Metamyelocytes % Myelocytes % Promyelocytes % Blast Cells % Plasma Cell % (Manual) Other Cells % Nucleated RBCs/100 WBC Differential Comment Diff Path Review Hypersegmented Neuts Atypical Lymphocytes Reactive Lymphocytes Smudge Cells Toxic Granulation Dohle Bodies Lakeshia Rods Platelet Estimate Plt Morphology Comment RBC Morphology Polychromasia Hypochromasia Poikilocytosis Basophilic Stippling Anisocytosis Microcytosis Macrocytosis Spherocytes Sickle Cells Target Cells Tear Drop Cells Ovalocytes Stomatocytes [place] Bodies Bella Cells Bite Cells Acanthocytes (Spur) Rouleaux Schistocytes ESR Sodium 143 Potassium 4.3 Chloride 110 H Carbon Dioxide 23.0 Anion Gap 10 BUN 8 Creatinine 0.74 Estim Creat Clear Calc 82.75 Est GFR (MDRD) Af Amer 122 Est GFR (MDRD) Non-Af 101 BUN/Creatinine Ratio 10.9 Glucose 85 Calcium 8.8 Magnesium 2.1 Total Bilirubin AST ALT Alkaline Phosphatase Troponin I C-React Prot Ext Range Total Protein Albumin Globulin Albumin/Globulin Ratio Triglycerides 187 Cholesterol 214 H LDL Cholesterol 143 H VLDL Cholesterol 37 HDL Cholesterol 34 L Lipase TSH 1.71 Discharge Diet: Low fat/ Low Cholesterol Discharge Activity: Return to Normal Activity Home Medications: Medications to take at Discharge Naproxen [Naprosyn] 500 mg PO BID PRN #20 tab 04/05/18 Pantoprazole Sodium [Protonix] 40 mg PO DAILY #30 tab 04/09/18 Following Prescrptions Were Given to Patient: Pantoprazole Sodium [Protonix] 40 mg PO DAILY #30 tab Primary Care Physician: Jennifer Dia MD [Primary Care Provider] - Please follow up with your Primary Care Physician in: within 1 week Disposition: Home Minutes spent on discharge:: 35 Patient Condition:: Stable Medical Necessity - Tobacco Use Smoking Status: Current every day smoker Tobacco Use: Cigarettes Meaningful Use Info Meaningful Use Diagnoses (Choose all that apply): None applicable Code Visit OBSV E&M: 08582 Observation care discharge
[2018-04-12 09:14] LABS: Pathologist Review Reviewed
== END 2018-04-09 11:18 | disposition home or self-care (01) ==
LOC: ED 19:22 → PCU 21:28
PROVIDERS: Admitting Provider Internal Medicine; Emergency Provider Emergency Medicine; Family Provider Internal Medicine; PCP Internal Medicine; Visit Provider Internal Medicine
DX: R07.89 Other chest pain (principal); E66.9 Obesity, unspecified; Z68.39 Body mass index [BMI] 39.0-39.9, adult; Z71.3 Dietary counseling and surveillance; R00.0 Tachycardia, unspecified; F17.210 Nicotine dependence, cigarettes, uncomplicated
CPT/HCPCS: 36415; 71046; 80048; 80053; 80061; 83690; 83735; 84443; 84484; 85025; 85652; 86140; 87040; 93005; 96361; 96374; 99218; 99284; J7030; G0378

== ENCOUNTER 2019-01-22 17:04 | Emergency (ER) | payer MEDICAID, SELFPAY ==
[2018-08-10 14:53] VITALS: BMI 39.8
[2019-01-22 17:05] VITALS: BP 166/88; PULSE 131; RESP 18; TEMP 35.8; O2SAT 100; BMI 40.7
[2019-01-22] MEDS: 0.9% Normal Saline 1,000 ML 999 ML IV ×2 (17:33→19:18)
[2019-01-22 17:38] LABS: Mucous, Urine 0 SEEN /hpf (<or=2+); Red Blood Cells-Urine 0 SEEN /hpf (0-5)
[2019-01-22 17:42] LABS: Color, Urine Yellow (Yellow); Glucose, Dipstick Normal (Normal); Ketone-Dipstick Negative (Negative); Leukocyte Esterase-Dipstick 25 /ul (Negative); Nitrite-Dipstick Negative (Negative); Occult Blood-Urine Negative /ul (Negative); Protein-Dipstick Negative (Negative); Specific Gravity, Urine 1.005 (1.002-1.030); Urine Bilirubin Dipstick Negative (Negative); Urine Clarity Clear (Clear); Urine Urobilinogen Normal (Normal)
[2019-01-22 17:45] LABS: Absolute Lymphocyte Count 3.79 X10^3/uL (0.83-4.51); Absolute Neutrophil Count 8.7 X10^3/uL (2.0-7.7); Basophil# 0.03 X10^3/uL; Basophil% 0.2 % (0-1); Eosinophil# 0.14 X10^3/uL; Eosinophils% 1.1 % (0-5); Hematocrit 36.9 % (37-47); Lymphocyte # 3.79 X10^3/ul (4.0); Lymphocyte % 28.5 % (19-41); Mean Corp Hgb Conc 32.5 g/dL (32-36); Mean Corpuscular Hgb 29.3 pg (27.0-32.0); Mean Corpuscular Volume 90.2 fL (81-99); Mean Platelet Vol. 9.2 fl (6.2-12.0); Monocyte# 0.56 X10^3/uL; Monocyte% 4.2 % (0-10); NRBC Flagged by Analyzer 0 % (0-5); Neutrophil # 8.68 X10^3/uL (2.7-7.7); Neutrophil % 65.4 % (47-70); Platelet Count 286 K/mm3 (150-450); RBC Distribution Width CV 13.2 % (11.6-14.6); RBC Distribution Width SD 43.2 fl (35.1-43.9); Red Blood Count 4.09 M/mm3 (4.2-5.4); White Blood Count 13.3 K/mm3 (4.4-11.0)
[2019-01-22 17:56] LABS: Anion Gap 6 (5-15); BUN 5 mg/dL (7-18); BUN/Creat Ratio 9.6 RATIO (10-20); Calcium,Total 8.7 mg/dL (8.5-10.1); Chloride 109 mmol/L (98-107); Creatinine, Serum 0.52 mg/dL (0.55-1.02); EST Glomerular Filtration Rate 150 mL/min (>60); Est Glom Filt Rate - Afr Amer 181 mL/min (>60); Estimated Creatinine Clearance 116.73 ml/min; Glucose 87 mg/dL (74-106); Potassium 3.3 mmol/L (3.5-5.1); Sodium Level 139 mmol/L (136-145)
[2019-01-22 17:59] LABS: Bacteria 2+ /hpf (None Seen); Squamous Epithelial Cells - UA 0-5 SEEN /hpf (5-10); White Blood Cells 0-5 SEEN /hpf (0-5)
[2019-01-22] MEDS: proMETHazine 25 MG/ML Syringe 6.25 MG IV (18:12)
[2019-01-22 19:18] VITALS: BP 108/66; PULSE 100; RESP 18; O2SAT 99
--- NOTE | 2019-01-22 19:59 | ED.VIS.GEN ---
History of Present Illness Chief Complaint: Nausea/Vomiting Informant: Patient Onset: Today Context: Gradual Onset Timing: Intermittent Current Severity: Moderate Maximum Severity: Moderate Narrative: The patient is a 28-year-old female who is currently 18 weeks gestation presents to the emergency department nausea vomiting. The patient states that she struggled with nausea vomiting throughout her . She states that it got worse today and she was feeling generally weak. She denies abdominal pain, vaginal bleeding, or discharge. She is otherwise been in her normal state of health. Prior similar symptoms: No Recent Illness/Hospitalization: No Past Medical History - Allergies and Home Meds Allergies/Adverse Reactions: Allergies No Known Drug Allergies Allergy (Verified 01/22/19 17:05) Other Primary Care Physician: Jennifer Dia MD [Primary Care Provider] - Prior records reviewed: Yes Past Medical History: None Smoking Status: Current every day smoker - Family History Paternal Family History: Reports: No pertinent history - No cardiac history in first-degree family relative Review of Systems General: Denies: Chills, Fever, Sweats Eyes: Denies: Visual changes - bilaterally, Diplopia ENT: Denies: Rhinorrhea, Sore throat Cardiovascular: Denies: Chest pain, Palpitations Respiratory: Denies: Dyspnea, Cough, Dyspnea on exertion Gastrointestinal: Denies: Abdominal pain, Nausea, Vomiting, Diarrhea, Melena, Hematochezia Genitourinary: Denies: Dysuria, Hematuria, Frequency Musculoskeletal: Denies: Back pain, Extremity Pain Skin: Denies: Rash, Wounds Neurological: Denies: Headache, Weakness, Numbness Physical Exam Vital Signs/Narrative: Vital Signs Temp Pulse Resp BP Pulse Ox 01/22/19 19:18 100 18 108/66 99 01/22/19 17:05 96.4 F L 131 H 18 166/88 H 100 Inital Vital Signs reviewed: Yes General: Well nourished, Well developed, No Acute Distress Head: Normocephalic, Atraumatic Eyes: Perrl, EOMI ENT: Moist mucous membranes, No rhinorrhea Neck: Supple, Nontender Cardiovascular: Regular rate, Regular rhythm, No murmurs Respiratory: No distress, CTA bilaterally, Chest nontender Abdomen: Soft, Nontender, Nondistended, Normal bowel sounds Back: Nontender, Normal Inspection Extremities: Nontender, No edema Skin: Normal color, No rash Neurological: Alert, Oriented x3, Cranial nerves II-XII grossly intact, Normal Strength, Normal Sensation Psychological: Normal affect, Normal Mood Diagnostic/Tx/Re-eval Abnormal Lab Results 01/22/19 01/22/19 01/22/19 17:25 17:25 17:30 WBC 13.3 H RBC 4.09 L Hgb 12.0 Hct 36.9 L MCV 90.2 MCH 29.3 MCHC 32.5 RDW Std Deviation 43.2 RDW Coeff of Madonna 13.2 Plt Count 286 MPV 9.2 Immature Gran % (Auto) 0.600 Neut % (Auto) 65.4 Lymph % (Auto) 28.5 [place] % (Auto) 4.2 Eos % (Auto) 1.1 Baso % (Auto) 0.2 Absolute Neuts (auto) 8.7 H Absolute Lymphs (auto) 3.79 Nucleated RBC % 0 Sodium 139 Potassium 3.3 L Chloride 109 H Carbon Dioxide 24.0 Anion Gap 6 BUN 5 L Creatinine 0.52 L Estim Creat Clear Calc 116.73 Est GFR (MDRD) Af Amer 181 Est GFR (MDRD) Non-Af 150 BUN/Creatinine Ratio 9.6 L Glucose 87 Calcium 8.7 Urine Color Yellow Urine Clarity Clear Urine pH 7.0 Ur Specific [place] 1.005 Urine Protein Negative Urine Glucose (UA) Normal Urine Ketones Negative Urine Occult Blood Negative Urine Nitrite Negative Urine Bilirubin Negative Urine Urobilinogen Normal Ur Leukocyte Esterase 25 H Urine RBC 0 SEEN Urine WBC 0-5 SEEN Ur Squamous Epith Cells 0-5 SEEN Urine Bacteria 2+ Urine Mucus 0 SEEN - Medical Decision Making heart tones were obtained on patient arrival. 140s and reactive. Her abdomen is soft and nontender. IV was established. The patient was given 2 L of fluids and Phenergan. Screening labs are relatively unremarkable. Patient's urine does show some trace evidence of infection but she is had no symptoms. Given her stage in , she will be treated with Macrobid. I also gave her Phenergan for nausea control for home. She had no further vomiting. Her abdomen is still soft and nontender. The patient will be discharged home. Impression 1. Asymptomatic bacteriuria in 2. Nausea vomiting ED Disposition - Plan for ED Patient: Disposition: Home or Assisted Living Instructions: Hyperemesis Gravidarum Prescriptions: Fluconazole [Diflucan] 150 mg PO X1 #1 tab Prescription Printed Nitrofurantoin Macrocrystals [Macrobid] 100 mg PO Q12 #14 cap Prescription Printed proMETHazine tablet [Phenergan] 25 mg PO Q6H PRN PRN #10 tab PRN Reason: Nausea Prescription Printed Referrals: Jennifer Dia MD [Primary Care Provider] -
[2019-01-22 20:08] VITALS: BP 124/71; PULSE 96; RESP 17; TEMP 37.7
== END 2019-01-22 20:11 | disposition home or self-care (01) ==
LOC: ED 17:37
PROVIDERS: Emergency Provider Emergency Medicine; Family Provider Internal Medicine; PCP Internal Medicine
DX: O21.9 Vomiting of pregnancy, unspecified (principal); O98.912 Unspecified maternal infectious and parasitic disease complicating pregnancy, second trimester; R82.71 Bacteriuria; Z3A.18 18 weeks gestation of pregnancy; O99.332 Smoking (tobacco) complicating pregnancy, second trimester; F17.200 Nicotine dependence, unspecified, uncomplicated
CPT/HCPCS: 80048; 81001; 85025; 96361; 96374; 99282; J7030; A4216

== ENCOUNTER 2019-04-27 20:19 | Emergency (ER) | payer MEDICAID, SELFPAY ==
[2019-04-26 15:02] VITALS: BMI 40.7
[2019-04-27 20:20] VITALS: BP 134/81; PULSE 139; RESP 15; TEMP 37.2; O2SAT 98; BMI 41.3
--- NOTE | 2019-04-27 20:43 | ED.DCSUM_ITS ---
History of Present Illness Chief Complaint: General Illness Informant: Patient Onset: Days Context: Gradual Onset Current Severity: Moderate Maximum Severity: Moderate Narrative: Patient is currently 31 weeks . She presents with complaint of fever, body aches, nausea, vomiting, and cough. Patient reports she had URI symptoms for the past 2 days. She was seen in urgent care and told to take Benadryl for her symptoms. Patient today developed a fever along with body aches, nausea, and vomiting. She continues to have cough and congestion. She denies urinary symptoms. She is feeling normal movement. Past Medical History - Allergies and Home Meds Allergies/Adverse Reactions: Allergies No Known Drug Allergies Allergy (Verified 04/27/19 20:24) Other Primary Care Physician: Jennifer Dia MD [Primary Care Provider] - Doctors: Dr. Yarbrough Prior records reviewed: Yes Lives: With Family Smoking Status: Current every day smoker - Family History Paternal Family History: Reports: No pertinent history - No cardiac history in first- degree family relative Review of Systems General: Reports: Fever Eyes: Denies: Visual changes - bilaterally ENT: Denies: Bilateral ear pain Cardiovascular: Denies: Chest pain Respiratory: Reports: Dyspnea, Cough Gastrointestinal: Reports: Nausea, Vomiting Genitourinary: Denies: Dysuria, Frequency Musculoskeletal: Reports: Myalgias. Denies: Swelling Neurological: Denies: Parasthesia, Numbness Hematologic: Denies: Easy bruising, Easy bleeding Allergy: Denies: Uticaria Physical Exam Vital Signs/Narrative: Vital Signs Temp Pulse Resp BP Pulse Ox 04/27/19 20:20 99.0 F 139 H 15 134/81 H 98 Inital Vital Signs reviewed: Yes General: Well nourished, Well developed Head: Normocephalic ENT: Moist mucous membranes Neck: Supple Cardiovascular: Regular rhythm, Tachycardia Respiratory: No distress, CTA bilaterally Abdomen: Soft - gravid, Nontender Neurological: Alert, Oriented x3 Psychological: Normal affect Diagnostic/Tx/Re-eval Impressions Chest X-Ray 04/27/19 20:45 IMPRESSION: No acute process mild mid thoracic dextroscoliosis Electronically Signed: Nick Zhou, at 21:31 EST Tel , Service support , 04/27/19 20:45 Chest 1 View (Portable) [RAD] Stat 04/27/19 20:53 Mucosa - Nasopharyngeal Influenza Types A,B Direct FA (SHANIA) - Final Influenzae B Laboratory Results 04/27/19 04/27/19 04/27/19 21:05 21:05 21:05 WBC 8.3 RBC 4.11 L Hgb 12.4 Hct 37.2 MCV 90.5 MCH 30.2 MCHC 33.3 RDW Std Deviation 43.9 RDW Coeff of [place] 13.3 Plt Count 223 MPV 9.5 Immature Gran % (Auto) 1.300 H Neut % (Auto) 80.4 H Lymph % (Auto) 13.5 L [place] % (Auto) 4.6 Eos % (Auto) 0.1 Baso % (Auto) 0.1 Absolute Neuts (auto) 6.6 Absolute Lymphs (auto) 1.11 Nucleated RBC % 0 Sodium 139 Potassium 3.2 L Chloride 107 Carbon Dioxide 27.0 Anion Gap 5 BUN 5 L Creatinine 0.70 Estim Creat Clear Calc 91.10 Est GFR (MDRD) Af Amer 129 Est GFR (MDRD) Non-Af 106 BUN/Creatinine Ratio 7.2 L Glucose 95 Calcium 8.5 Urine Color Yellow Urine Clarity Sl. Cloudy Urine pH 7.0 Ur Specific [place] 1.005 Urine Protein Negative Urine Glucose (UA) Normal Urine Ketones Negative Urine Occult Blood Negative Urine Nitrite Negative Urine Bilirubin Negative Urine Urobilinogen Normal Ur Leukocyte Esterase Negative Urine RBC 0 SEEN Urine WBC 0-5 SEEN Ur Squamous Epith Cells 0-5 SEEN Urine Bacteria RARE Urine Mucus 0 SEEN - Medical Decision Making Patient was given a total of a liter and a half of IV fluid. She was given Tylenol, Zofran, 2 mg of morphine. At this time patient is feeling improved. Patient's heart rate is down to 106. She is given a dose of Tamiflu and will be given a prescription for Tamiflu as well as Zofran at home. ED Disposition - Plan for ED Patient: Disposition: Home or Assisted Living Diagnosis: Influenza Instructions: INFLUENZA (Adult) Prescriptions: Oseltamivir Phosphate [Tamiflu] 75 mg PO BID #10 cap Transmission Status: Pending to [facility] Ondansetron [Zofran Odt] 4 mg PO Q8H PRN PRN #10 tab PRN Reason: Nausea Transmission Status: Pending to [facility] Referrals: Jennifer Dia MD [Primary Care Provider] - 5-7 Days Amy Block MD [STAFF PHYSICIAN] - 1 Week
--- NOTE | 2019-04-27 20:45 | RAD_ITS ---
STUDY: X-RAY CHEST REASON FOR EXAM: Female, 28 years old. FEVER, VOMITING, NAUSEA -- PT IS 31 WEEKS - WAS SHIELDED APPROPRIATELY TECHNIQUE: Portable chest COMPARISON: 04/08/2018. FINDINGS: The lungs are clear and expanded. There is no demonstrated pleural abnormality. Normal size heart. Normal mediastinum and freda. Normal visualized pulmonary arteries. Normal visualized aortic arch and descending thoracic aorta. There is mild mid thoracic dextroscoliosis. Normal visualized ribs, clavicles, and shoulders. There is no demonstrated abnormality of the visualized soft tissue structures of the upper abdomen. RAD/Chest 1 View (Portable) IMPRESSION: No acute process mild mid thoracic dextroscoliosis Electronically Signed: Nick Zhou, at 21:31 EST Tel , Service support ,
[2019-04-27] MEDS: Ondansetron 4 MG/2 ML Vial IV (21:08)
[2019-04-27] MEDS: 0.9% Normal Saline 1,000 ML 1000 ML IV (21:08)
[2019-04-27] MEDS: Acetaminophen 500 MG Tablet 1000 MG PO (21:08)
[2019-04-27 21:14] LABS: Mucous, Urine 0 SEEN /hpf (<or=2+); Red Blood Cells-Urine 0 SEEN /hpf (0-5)
[2019-04-27 21:19] LABS: Absolute Lymphocyte Count 1.11 X10^3/uL (0.83-4.51); Absolute Neutrophil Count 6.6 X10^3/uL (2.0-7.7); Basophil# 0.01 X10^3/uL; Basophil% 0.1 % (0-1); Eosinophil# 0.01 X10^3/uL; Eosinophils% 0.1 % (0-5); Hematocrit 37.2 % (37-47); Hemoglobin 12.4 g/dL (12.0-15.0); Lymphocyte # 1.11 X10^3/ul (4.0); Lymphocyte % 13.5 % (19-41); Mean Corp Hgb Conc 33.3 g/dL (32-36); Mean Corpuscular Hgb 30.2 pg (27.0-32.0); Mean Corpuscular Volume 90.5 fL (81-99); Mean Platelet Vol. 9.5 fl (6.2-12.0); Monocyte# 0.38 X10^3/uL; Monocyte% 4.6 % (0-10); NRBC Flagged by Analyzer 0 % (0-5); Neutrophil # 6.63 X10^3/uL (2.7-7.7); Neutrophil % 80.4 % (47-70); Platelet Count 223 K/mm3 (150-450); RBC Distribution Width CV 13.3 % (11.6-14.6); RBC Distribution Width SD 43.9 fl (35.1-43.9); Red Blood Count 4.11 M/mm3 (4.2-5.4); White Blood Count 8.3 K/mm3 (4.4-11.0)
[2019-04-27 21:20] LABS: Color, Urine Yellow (Yellow); Glucose, Dipstick Normal (Normal); Ketone-Dipstick Negative (Negative); Leukocyte Esterase-Dipstick Negative /ul (Negative); Nitrite-Dipstick Negative (Negative); Occult Blood-Urine Negative /ul (Negative); Protein-Dipstick Negative (Negative); Specific Gravity, Urine 1.005 (1.002-1.030); Urine Bilirubin Dipstick Negative (Negative); Urine Clarity Sl. Cloudy (Clear); Urine Urobilinogen Normal (Normal)
[2019-04-27 21:26] LABS: Bacteria RARE /hpf (None Seen); Squamous Epithelial Cells - UA 0-5 SEEN /hpf (5-10); White Blood Cells 0-5 SEEN /hpf (0-5)
[2019-04-27 21:30] LABS: Anion Gap 5 (5-15); BUN 5 mg/dL (7-18); BUN/Creat Ratio 7.2 RATIO (10-20); Calcium,Total 8.5 mg/dL (8.5-10.1); Chloride 107 mmol/L (98-107); EST Glomerular Filtration Rate 106 mL/min (>60); Est Glom Filt Rate - Afr Amer 129 mL/min (>60); Glucose 95 mg/dL (74-106); Potassium 3.2 mmol/L (3.5-5.1); Sodium Level 139 mmol/L (136-145)
[2019-04-27] MEDS: Oseltamivir Phosphate 75 MG Capsule PO (21:39)
[2019-04-27] MEDS: Morphine 2 MG/ML Syringe IV (22:16)
[2019-04-27 22:21] VITALS: BP 98/55; PULSE 124; RESP 20; O2SAT 96
[2019-04-27 23:00] VITALS: BP 99/50; PULSE 107; RESP 20; O2SAT 96
[2019-04-27 23:30] VITALS: PULSE 101; RESP 20; O2SAT 98
== END 2019-04-27 23:33 | disposition home or self-care (01) ==
PROVIDERS: Emergency Provider Emergency Medicine; PCP Internal Medicine
DX: O98.813 Other maternal infectious and parasitic diseases complicating pregnancy, third trimester (principal); J10.1 Influenza due to other identified influenza virus with other respiratory manifestations; O99.333 Smoking (tobacco) complicating pregnancy, third trimester; F17.200 Nicotine dependence, unspecified, uncomplicated; Z3A.31 31 weeks gestation of pregnancy
CPT/HCPCS: 71045; 80048; 81001; 85025; 87804; 96361; 96374; 96375; 99284; J7030; J2405

== ENCOUNTER 2019-06-18 05:05 | Inpatient (IN) | payer MEDICAID, SELFPAY ==
--- NOTE | 2019-06-11 13:34 | PCM.HP.BLA ---
History and Physical Date of Admission: 06/18/19 Amy Yarbrough Physician JACK FRAME TENDER H&P Signed Encounter Date: 06/11/2019 Expand All Collapse All Hide copied text Carter for details Pre-Op History and Physical ? HPI: The patient is a 28 year old female presenting for pre-operative visit. She is scheduled for and salpingectomy, for desires sterilization and scheduled cs at 39 weeks on 06/21/19. Procedure discussed along with risks, benefits and complications. Other alternatives discussed for management. Consent form signed? Yes. ? ? PAST MEDICAL HISTORY PAST MEDICAL HISTORY Diagnosis Date ? Anemia ? ? WITH ? ? PAST SURGICAL HISTORY PAST SURGICAL HISTORY Procedure Laterality Date ? CARPAL TUNNEL ? 2016 ? right hand ? DELIVERY ONLY ? 2010 ? , low transverse ? DELIVERY ONLY ? 11/06/13 ? , low transverse ? NEXPLANON INSERTION ? 12/28/2013 ? removed ? ? ? CURRENT MEDICATIONS Current Outpatient Medications Medication Sig Dispense Refill ? Hfjjsqnh-Hl-Ypm-Fe-FA ( VITAMIN) tab Take 1 tablet by mouth. ? ? ? ondansetron (ZOFRAN) 4 mg tablet Take 1 tablet by mouth every 8 hours as needed for Nausea/Vomiting. 30 tablet 0 ? No current facility-administered medications for this visit. ? ? ALLERGIES: Patient has no known allergies. ? PERSONAL HISTORY: SOCIAL HISTORY Social History ? Tobacco Use ? Smoking status: Former Smoker ? ? Packs/day: 0.50 ? ? Years: 5.00 ? ? Pack years: 2.50 ? ? Types: Cigarettes ? Smokeless tobacco: Never Used Substance Use Topics ? Alcohol use: No ? Drug use: No ? FAMILY HISTORY: FAMILY HISTORY FAMILY HISTORY Problem Relation Age of Onset ? No Known Problems Sister ? ? No Known Problems Brother ? ? No Known Problems Mother ? ? No Known Problems Father ? ? Hypertension Maternal Grandmother ? ? Hypertension Maternal Grandfather ? ? Diabetes Maternal Grandfather ? ? Type II ? Heart Maternal Grandfather ? ? Kidney Disease Paternal Grandmother ? ? Hypertension Paternal Grandfather ? ? Diabetes Paternal Grandfather ? ? Type II ? No Known Problems Son ? ? No Known Problems Daughter ? ? ? REVIEW OF SYMPTOMS: negative except as noted above PHYSICAL EXAMINATION: ? VITALS: Blood pressure 134/80, weight 224 lb (101.6 kg), last menstrual period 09/17/2018. ? GENERAL: The patient is well nourished, well hydrated in no acute distress. , The patient is oriented to time, place, and person. NECK: full range of motion ABDOMEN: gravid, non tender. ? IMPRESSION: @ 38.1 weeks- scheduled for repeat cs and salpingectomy ? PLAN: Consent signed today Pt has been counseled on risks/benefits and alternatives of surgery including but not limited to anesthesia, bleeding, infection, injury to pelvic structures including bowel, bladder, ureters and vessels. Pt wishes to proceed with surgery at this time. ? ? I have reviewed and updated past medical and surgical history, medications and allergies Amy Yarbrough MD ?1:28 PM Routine Office Visit on 06/11/2019
[2019-06-18] VITALS (15 sets, daily range): BP systolic 96–131; BP diastolic 48–87; PULSE 74–109; RESP 14–20; TEMP 36.3–36.6; O2SAT 86–100; BMI 43.5
--- NOTE | 2019-06-18 | FALS_PTH ---
PATIENT: STELLA COLLINS LOC: [facility] U#:[id number] AGE/SX: 28/F ROOM: WP003 RE06/18/[address]: Dr. Amy Block, MDDOB: 1990 BED: 1 DIS: 06/19/2019 SPEC #: [id number] RECD: 06/18/19 12:33 STATUS: SAIDA JAELYN #: [id number] BRITNEY: 06/18/19 00:[address]: Amy Block DEPT: SURGICAL PATHOLOGY RECD BY: Jesus Brar ENTERED: 06/18/19 12:33 SP TYPE: FALL TUBES OTHR DR: Dr. Jennifer Dia MD Tissues: Fallopian tube Procedures: Surgery Specimen Level III HEADER OPERATION: Tubal ligation, repeat section PRE-OP DIAGNOSIS: Sterilization TISSUE SUBMITTED: Fallopian tubes, suture in left tube MICROSCOPIC DIAGNOSIS Right and left fallopian tubes, bilateral salpingectomies: Two complete segments of fallopian tube with no pathologic change. AM:cedrick 06/19/19 MICROSCOPIC DESCRIPTION Slides are reviewed. GROSS DESCRIPTION Received is one container labeled with the patient's name and designated bilateral fallopian tubes, suture in left. The specimen consists of bilateral fallopian tubes including fimbrial ends. The right tube measures 5 cm in length and 0.7 cm in diameter. The left tube shows a suture and measures 4 cm in length and 0.5 cm in diameter. A detached fimbrial end is also present most likely representing left fallopian tube measuring 2 x 1.5 x 1 cm. Upper Tier sections are submitted in two cassettes as follows: 1 - right fallopian tube, 2 - left fallopian tube. / SJ:cedrick 06/18/19 TC:5 CPT: 92006 x2
[2019-06-18] MEDS: Lactated Ringers 1,000 ML 999 ML IV (05:40)
[2019-06-18 05:52] LABS: Absolute Lymphocyte Count 4.33 X10^3/uL (0.83-4.51); Absolute Neutrophil Count 10.6 X10^3/uL (2.0-7.7); Basophil# 0.02 X10^3/uL; Basophil% 0.1 % (0-1); Eosinophil# 0.14 X10^3/uL; Eosinophils% 0.9 % (0-5); Hemoglobin 12.4 g/dL (12.0-15.0); Lymphocyte # 4.33 X10^3/ul (4.0); Mean Corp Hgb Conc 33.5 g/dL (32-36); Mean Corpuscular Hgb 29.6 pg (27.0-32.0); Mean Corpuscular Volume 88.3 fL (81-99); Monocyte# 0.81 X10^3/uL; Monocyte% 5.1 % (0-10); NRBC Flagged by Analyzer 0 % (0-5); Neutrophil # 10.58 X10^3/uL (2.7-7.7); Neutrophil % 66.1 % (47-70); Platelet Count 241 K/mm3 (150-450); RBC Distribution Width SD 44.3 fl (35.1-43.9); Red Blood Count 4.19 M/mm3 (4.2-5.4)
[2019-06-18] MEDS: Sodium Citrate/Citric Acid 30 ML UDC PO (07:01)
[2019-06-18] MEDS: Cefazolin 2 GM in 0.9% Normal Saline 100 ML IV (07:14)
--- NOTE | 2019-06-18 08:07 | OP.PCM_ITS ---
Delivery Classification: Scheduled Final EUNICE: 06/25/19 Gestational age: 39 Weeks and 0 Days radio sportscaster: Vivian Lugo Type of Anesthesia:: Spinal Date of Procedure: 06/18/19 Pre-Operative Diagnosis: term gestation, elective repeat c/s, desires sterilization Post-Operative Diagnosis: same, live female infant Indications for : Repeat Elective , Desires elective sterilization Description of Procedure: After informed consent was obtained the patient was taken to the operating room she was given spinal anesthesia. sHe was placed in the supine position. She was then prepped and draped in normal sterile fashion. Once spinal anesthesia was found to be adequate skin incision was made with a scalpel in a Pfannenstiel fashion. It was carried down to the underlying layer of the fascia. Fascia was then incised midline with scapel and extended laterally using curved aponte. 2 straight Jimmy's were placed in the superior aspect of the fascial edge and the rectus muscles were dissected off sharply. Attention was then turned to the inferior aspect where again the fascial edge was grasped with 2 straight [place] clamps tented up and the rectus muscle dissected off shaprly. At this time the rectus muscles were grasped in the midline using 2 Allis clamps and scalpel was used to separate the rectus muscles. Using blunt force the peritoneum was then entered. Adhesion from atnerior uterus to vesicouterine peritoneum taken down using metzenbaum. Uterine incision was made in a low transverse fashion with the scalpel and then entered bluntly. Gentle opposing traction was placed to extend the uterine incision. The membranes were ruptured amniotic fluid clear. Infant's head was then brought to the uterine incision was delivered atraumatically followed by the rest 's body. One loose body cord noted. At this time delayed cord clamping was performed mouth nose were suctioned. Infant was then handed to the waiting nursery team. The placenta was then removed with gentle traction. The uterus was removed from the intra-abdominal cavity is wrapped in a moist lap. He was cleared of all clots and debris using a moist lap. Ring clamps were placed on the uterine angles. #1 Vicryl suture was used in a running locked fashion for the first layer- great hemostasis appreciated. At this time then the uterus was placed back into abdominal cavity uterine incision was evaluated and noted to be of good hemostasis. Tubes and ovaries were evaluated they were normal. The tubes were grasped in an avascular area with the Yesica and ligasure was used to seal and cut along the mesosalpynx to remove tube completely. ana placed over both pedicles. Great hemostasis was appreciated at this time the uterine incision was again evaluated good hemostasis was appreciated. Ana placed. The peritoneum was grasped with Kellys. Peritoneum was reapproximated using #2 Vicryl suture in a running fashion. Muscle was evaluated and dry- ana placed. The fascia was then reapproximated using #1 PDS in a running fashion. Subcutaneous layer was evaluated and Bovie was used for any small oozing that was noted per #2-0 Vicryl suture was then used to reapproximate the subcutaneous layer 4-0 monocryl was used to reapproximate the skin in a subcutaneous fashion. Dry sterile dressing was applied. Instrument lap needle count were correct ?2. Anticipated normal postoperative course for this patient. Amniotic Membrane Rupture Type: Artificial Amniotic Fluid Description: Clear Placenta Disposition: [facility] Drain: Hearn to straight drain Cord Entanglement: - - around body loose Nuchal Cord Compression: Without compression Cord Vessel Description: 3 Vessels Infant Gender: Female (1 minute): 9 (5 minute): 9 Delayed cord clamping: Yes Antibiotic Given: Ancef 2 grams IV x1 Pt instructed on risks of surgery: Bleeding, Anesthesia Risks, Infection, Permanency, Failure Rate of 1 to 2%, Injury to surrounding structure(s) including bowel and bladder, Availability of other non-permanent control options Complications: None - Admit VTE Documentation VTE Present on Admission: Yes VTE Mechan Device Prophylaxis: SCD's VTE Pharm Prophylaxis ordered?: Yes
[2019-06-18] MEDS: Oxytocin 30 units/NS 500 ml 30 UNITS/500 ML IV.SOLN 167 UNITS IV (08:30)
[2019-06-18] MEDS: HYDROmorphone 1 MG/ML Syringe IV ×2 (09:37→12:35)
[2019-06-18 12:01] LABS: Pathology Specimen OB SEE PATHOLOGY REPORT
[2019-06-18] MEDS: Lactated Ringers 1,000 ML 100 ML IV (12:35)
[2019-06-18] MEDS: Ketorolac 30 MG/ML Syringe IV (14:31)
[2019-06-18] MEDS: 0.9% Saline Lock 10 ML Syringe IV (16:28)
[2019-06-18] MEDS: oxyCODONE 5 MG Tablet PO ×2 (16:46→20:43)
--- NOTE | 2019-06-18 19:52 | NURSING ---
pt given incentive spirometer instruced on used q1hr while awake and used effectively.
[2019-06-18] MEDS: Ibuprofen 600 MG Tablet PO (20:44)
[2019-06-18] MEDS: Enoxaparin 40 MG/0.4 ML Syringe SC (21:28)
[2019-06-18] MEDS: Senna/Docusate Sodium 1 Tablet PO (21:44)
[2019-06-19] MEDS: oxyCODONE 5 MG Tablet PO ×4 (01:35→13:53)
[2019-06-19] MEDS: Ibuprofen 600 MG Tablet PO (03:36)
[2019-06-19 03:38] VITALS: BP 106/65; PULSE 78; RESP 16; TEMP 36.6
[2019-06-19 05:38] LABS: Hematocrit 33.1 % (37-47); Hemoglobin 10.8 g/dL (12.0-15.0); Mean Corp Hgb Conc 32.6 g/dL (32-36); Mean Corpuscular Hgb 29.7 pg (27.0-32.0); Mean Corpuscular Volume 90.9 fL (81-99); Mean Platelet Vol. 10.1 fl (6.2-12.0); Platelet Count 197 K/mm3 (150-450); RBC Distribution Width CV 13.8 % (11.6-14.6); RBC Distribution Width SD 45.7 fl (35.1-43.9); Red Blood Count 3.64 M/mm3 (4.2-5.4); White Blood Count 13.7 K/mm3 (4.4-11.0)
[2019-06-19 07:00] VITALS: BP 109/65; PULSE 88; RESP 15; TEMP 36.8
--- NOTE | 2019-06-19 09:24 | PN.OBGYN_ITS ---
Subjective: pain well controlled, average lochia, no N/V, lilliana. regular diet - Physical Exam Vitals/I&O's: Vital Signs Temp Pulse Resp BP Pulse Ox 98.2 F 88 15 109/65 94 06/19/19 07:00 06/19/19 07:00 06/19/19 07:00 06/19/19 07:00 06/18/19 19:23 Oxygen Delivery Method Room Air Weight: 101.2 kg Body Mass Index (BMI) 43.5 Intake and Output for Last 24 Hours 06/17/19 06/18/19 06/19/19 23:59 23:59 23:59 Intake Total 3381.67 / 3381.67 Output Total 1450 / 1450 Balance 1931.67 / 1931.67 General: Alert, Cooperative, No apparent distress Lungs: Clear to auscultation Cardiovascular: Regular rate Abdomen: Soft, Non-Distended, Obese, Tender - appropriatly Extremities: Edema - 1+ Skin: Incision - bandage is clean, dry and intact Laboratory Results 06/19/19 05:15: WBC 13.7 H, RBC 3.64 L, Hgb 10.8 L, Hct 33.1 L, MCV 90.9, MCH 29.7, MCHC 32.6, RDW Std Deviation 45.7 H, RDW Coeff of Madonna 13.8, Plt Count 197, MPV 10.1 Current Medications Acetaminophen (Tylenol) 1,000 mg PO Q8H PRN PRN PRN Reason: Pain Score 1-3/10;Temp>99.6F Bisacodyl (Dulcolax) 10 mg RECTAL UD PRN PRN Reason: If no BM Enoxaparin Sodium (Lovenox) 40 mg SC BID [facility] Last Admin: 06/18/19 21:28 Dose: 40 mg Documented by: Hydrocortisone (Hytone) 1 applic TOPICAL TID PRN PRN; Protocol PRN Reason: Discomfort Naloxone HCl 4 mg/ Dextrose 504 mls @ 0 mls/hr IV .Q0M PRN; Protocol PRN Reason: Respiratory depression Ibuprofen (Motrin) 600 mg PO Q6H PRN PRN PRN Reason: Pain Score 1-3/10 Last Admin: 06/19/19 03:36 Dose: 600 mg Documented by: Methylergonovine Maleate (Methergine) 0.2 mg IM X1 PRN PRN Reason: Uterine Atony Naloxone HCl (Narcan) 0.02 mg IV Q1M PRN PRN Reason: RR <10 and pt unresponsive Ondansetron HCl (Zofran) 4 mg IV Q4H PRN PRN PRN Reason: Nausea Oxycodone HCl (Oxyir) 5 - 10 mg PO Q4H PRN PRN PRN Reason: Pain Score 4-10/10 Last Admin: 06/19/19 05:28 Dose: 10 mg Documented by: Prochlorperazine Edisylate (Compazine Iv) 10 mg IV Q6H PRN PRN PRN Reason: NAUSEA Senna/Docusate Sodium (Senokot-S, Kiya-Colace) 0 tablet PO DAILY PRN PRN Reason: Constipation Last Admin: 06/18/19 21:44 Dose: 1 tablet Documented by: Simethicone (Mylicon) 80 mg PO PCHS PRN PRN Reason: Indigestion/stomach pain Sodium Chloride () 5 - 15 ml IV UD PRN PRN Reason: SALINE FLUSH Last Admin: 06/18/19 16:28 Dose: 10 ml Documented by: Medical Necessity - Tobacco Use Smoking Status: Current every day smoker Assessment/Plan All Active Problems (Last Reviewed 04/26/19 @ 15:02 by Josafat Marie) Asthma exacerbation (Acute) URI (upper respiratory infection) (Acute) Insect bite (Acute) Chest pain (Acute) Obesity (BMI 35.0-39.9 without comorbidity) (Acute) Abdominal pain (Acute) POD#1 s/p repeat c/s and tubal doing well desires d/c home today bottlefeeding and doing well
--- NOTE | 2019-06-19 09:34 | DCINST_ITS ---
Discharge Diet: No Restrictions Discharge Activity: Return to Normal Activity, May Not Drive - for 2 weeks, May not drive while taking narcotic pain medications., May Shower, May Take a Tub Bath - in 7 days. May resume sexual activity in: 4-6 weeks Lifting Restrictions: 20 pounds Additional Activity Instructions:: Nothing in the vagina for 4-6 weeks. You may return to work/school in 6 weeks. Call your doctor if your incision/area has: Continuous Slow Oozing, Sudden Increased Bleeding, Increased Pain/ Swelling, Increased Redness, Foul Smelling Discharge Call your doctor if you observe: Fever of 101 or Higher, Using more than one pad per hour - for 2 hours Suture Line Care: Avoid Pulling/Pushing, Avoid Pinching/Bending Cleanse incision/area with: Soap & Water - AFter you remove the bandage. Keep it very DRY., Keep Dressing Clean & Dry - Remove it on Tuesday06/22/2019. Additional Instructions: If you experience any of the following, contact your healthcare provider. * Bleeding that soaks a pad every hour for 2 hours * Fever 100.4 or higher * Unrelieved incision or abdominal pain * Swelling, redness, discharge or bleeding from your incision or episiotomy site * Your incision begins to separate * Problems urinating (including inability to urinate or burning while urinating). * Visual changes * Severe headache * Flu-like symptoms * Pain or redness in one of both of your breasts * Pain, warmth, tenderness or swelling in your legs, especially the calf area * Frequent nausea and vomiting * Symptoms of depression or anxiety If you experience any of the following, call 911 or go to the nearest Emergency Room. * Chest pain * Problems breathing * Seizure activity * Partial or complete paralysis of a body part, slurred speech, weakness or drooping of the face, or a sudden inability to walk or hold your balance Allergies/Adverse Reactions: Allergies No Known Drug Allergies Allergy (Verified 06/18/19 05:26) Other Medications to take at Discharge prenat.vits,sandor,dvs-bnbw-cpxig 1 tab PO DAILY 04/26/19 Docusate Sodium [Colace] 100 mg PO BID PRN PRN #30 cap 06/19/19 Ibuprofen [Motrin] 600 mg PO Q6H PRN #60 tab 06/19/19 Oxycodone [Oxyir] 5 mg PO Q6H PRN PRN 7 Days #26 tab 06/19/19 The following prescriptions were given: Docusate Sodium [Colace] 100 mg PO BID PRN PRN #30 cap PRN Reason: Constipation Transmission Status: Pending to [facility] Ibuprofen [Motrin] 600 mg PO Q6H PRN #60 tab PRN Reason: Pain Transmission Status: Pending to [facility] Oxycodone [Oxyir] 5 mg PO Q6H PRN PRN 7 Days #26 tab PRN Reason: severe pain Transmission Status: Sent to [facility] Follow-Up: Call to make an appointment with your doctor for an incision check in 1-2 weeks. You will also need a 6 week post- follow up appointment. Test results from this visit will be discussed in further detail at your follow- up appointment, if applicable. Please Follow Up With: Amy Block MD - Call to make an appointment for an incision check in 1-2 [phone] When: You will need a post check in 6 weeks. Primary Care Physician: Jennfier Dia MD [Primary Care Provider] -
[2019-06-19] MEDS: Enoxaparin 40 MG/0.4 ML Syringe SC (09:52)
[2019-06-19 12:30] VITALS: BP 124/66; PULSE 96; RESP 15; TEMP 36.4
[2019-06-19] MEDS: Senna/Docusate Sodium 1 Tablet PO (17:12)
[2019-06-19 18:34] VITALS: BP 121/75; PULSE 108; RESP 14; TEMP 37.1
== END 2019-06-19 19:00 | disposition home or self-care (01) | DRG 539 ==
PROVIDERS: Admitting Provider Obstetrics & Gynecology; Family Provider Internal Medicine; PCP Internal Medicine; Visit Provider Obstetrics & Gynecology
PROC: 10D00Z1 Extraction of Products of Conception, Low, Open Approach (ICD-10-PCS; CPT 59514; principal; 2019-06-18 07:15)
DX: O34.211 Maternal care for low transverse scar from previous cesarean delivery (principal); O69.81X0 Labor and delivery complicated by cord around neck, without compression, not applicable or unspecified; O99.334 Smoking (tobacco) complicating childbirth; F17.200 Nicotine dependence, unspecified, uncomplicated; Z3A.39 39 weeks gestation of pregnancy; Z37.0 Single live birth
CPT/HCPCS: 85025; 85027; 86850; 86900; 86901; 88302; 88304; 99218; J7120; A4216; G0378; J2405

== ENCOUNTER 2019-11-28 10:43 | Outpatient (RCR) | payer MEDICAID, SELFPAY ==
[2019-11-08 11:21] VITALS: BMI 43.5
== END 2019-12-12 23:59 ==
LOC: EMPH 10:43
PROVIDERS: PCP Internal Medicine; Visit Provider Family Medicine Geriatric Medicine
DX: Z11.59 Encounter for screening for other viral diseases (principal)
CPT/HCPCS: 87635; U0003

== ENCOUNTER 2020-01-10 08:33 | Outpatient (RCR) | payer MEDICAID, SELFPAY ==
[2019-12-05 13:18] VITALS: BMI 43.5
== END 2020-01-12 23:59 ==
LOC: EMPH 08:33
PROVIDERS: PCP Internal Medicine; Visit Provider Family Medicine Geriatric Medicine
DX: Z03.818 Encounter for observation for suspected exposure to other biological agents ruled out (principal)
CPT/HCPCS: 87426

== ENCOUNTER 2020-01-27 04:06 | Emergency (ER) | payer MEDICAID, SELFPAY ==
[2019-12-05 13:18] VITALS: BMI 43.5
[2020-01-27 04:07] VITALS: BP 142/96; PULSE 123; RESP 20; TEMP 36.4; O2SAT 100; BMI 37.2
--- NOTE | 2020-01-27 04:36 | ED.DCSUM_ITS ---
History of Present Illness Chief Complaint: Abd Pain Informant: Patient Narrative: This is a 29-year-old female presenting for the evaluation of right upper quadrant abdominal pain. Symptoms began Tuesday evening. She notes nausea. She states the pain has waxed and waned but has always had some discomfort since Tuesday evening. She describes a sharp pain just underneath her rib cage and right upper quadrant to the flank. She denies any diarrhea. No urinary symptoms. Past Medical History - Allergies and Home Meds Allergies/Adverse Reactions: Allergies No Known Drug Allergies Allergy (Verified 12/05/19 13:18) Other Primary Care Physician: Jennifer Dia MD [Primary Care Provider] - 1 Day (if symptoms persist or return to the ED ) Past Medical History: - - Asthma Surgical History: - - x3 Lives: With Family Smoking Status: Current every day smoker Drugs: None - Family History Paternal Family History: Reports: No pertinent history - No cardiac history in first- degree family relative Review of Systems General: Denies: Chills, Fever, Sweats Eyes: Denies: Visual changes - bilaterally, Diplopia ENT: Denies: Rhinorrhea, Sore throat Cardiovascular: Denies: Chest pain, Palpitations Respiratory: Denies: Dyspnea, Cough, Dyspnea on exertion Gastrointestinal: Reports: Abdominal pain, Nausea, Vomiting. Denies: Diarrhea, Melena, Hematochezia Genitourinary: Denies: Dysuria, Hematuria, Frequency Musculoskeletal: Denies: Back pain, Extremity Pain Skin: Denies: Rash, Wounds Neurological: Denies: Headache, Weakness, Numbness Physical Exam Vital Signs/Narrative: Vital Signs Temp Pulse Resp BP Pulse Ox 01/27/20 04:07 97.5 F L 123 H 20 H 142/96 H 100 General: Well nourished, Well developed, Obese, No Acute Distress Head: Normocephalic, Atraumatic Eyes: Perrl, EOMI ENT: Moist mucous membranes, No rhinorrhea Neck: Supple, Nontender Cardiovascular: Regular rate, No murmurs, Tachycardia Respiratory: No distress, CTA bilaterally, Chest nontender Abdomen: Soft, Nondistended, Normal bowel sounds, Tender, Guarding. Negative for: Rebound tenderness Back: Nontender, Normal Inspection Extremities: Nontender, No edema Skin: Normal color, No rash Neurological: Alert, Oriented x3, Cranial nerves II-XII grossly intact, Normal Strength, Normal Sensation Psychological: Normal affect, Normal Mood Diagnostic/Tx/Re-eval Laboratory Last Values WBC 14.5 K/mm3 (4.4-11.0) H 01/27/20 04:15 RBC 5.10 M/mm3 (4.2-5.4) 01/27/20 04:15 Hgb 14.0 g/dL (12.0-15.0) 01/27/20 04:15 Hct 43.2 % (37-47) 01/27/20 04:15 MCV 84.7 fL (81-99) 01/27/20 04:15 MCH 27.5 pg (27.0-32.0) 01/27/20 04:15 MCHC 32.4 g/dL (32-36) 01/27/20 04:15 RDW Std Deviation 41.1 fl (35.1-43.9) 01/27/20 04:15 RDW Coeff of Madonna 13.2 % (11.6-14.6) 01/27/20 04:15 Plt Count 349 K/mm3 (150-450) 01/27/20 04:15 MPV 9.3 fl (6.2-12.0) 01/27/20 04:15 Immature Gran % (Auto) 0.300 % (0.0-0.9) 01/27/20 04:15 Neut % (Auto) 52.6 % (47-70) 01/27/20 04:15 Lymph % (Auto) 38.3 % (19-41) 01/27/20 04:15 [place] % (Auto) 5.2 % (0-10) 01/27/20 04:15 Eos % (Auto) 3.3 % (0-5) 01/27/20 04:15 Baso % (Auto) 0.3 % (0-1) 01/27/20 04:15 Absolute Neuts (auto) 7.7 X10^3/uL (2.0-7.7) 01/27/20 04:15 Absolute Lymphs (auto) 5.56 X10^3/uL (0.83-4.51) H 01/27/20 04:15 Nucleated RBC % 0 % (0-5) 01/27/20 04:15 Differential Comment SCANNED 01/27/20 04:15 D-Dimer Quant (PE/DVT) 0.40 FEU/ug/m (0.27-0.49) 01/27/20 04:35 Sodium 137 mmol/L (136-145) 01/27/20 04:15 Potassium 4.0 mmol/L (3.5-5.1) 01/27/20 04:15 Chloride 104 mmol/L (98-107) 01/27/20 04:15 Carbon Dioxide 26.0 mmol/L (21.0-32.0) 01/27/20 04:15 Anion Gap 7 (5-15) 01/27/20 04:15 BUN 9 mg/dL (7-18) 01/27/20 04:15 Creatinine 0.86 mg/dL (0.55-1.02) 01/27/20 04:15 Estim Creat Clear Calc 69.95 ml/min 01/27/20 04:15 Est GFR (MDRD) Af Amer 101 mL/min (>60) 01/27/20 04:15 Est GFR (MDRD) Non-Af 83 mL/min (>60) 01/27/20 04:15 BUN/Creatinine Ratio 10.5 RATIO (10-20) 01/27/20 04:15 Glucose 112 mg/dL (74-106) H 01/27/20 04:15 Calcium 8.8 mg/dL (8.5-10.1) 01/27/20 04:15 Total Bilirubin 1.30 mg/dL (0.20-1.00) H 01/27/20 04:15 AST 27 U/L (15-37) 01/27/20 04:15 ALT 24 U/L (13-56) 01/27/20 04:15 Alkaline Phosphatase 82 U/L (45-117) 01/27/20 04:15 Total Protein 8.3 g/dL (6.4-8.2) H 01/27/20 04:15 Albumin 3.9 g/dL (3.2-5.0) 01/27/20 04:15 Globulin 4.4 g/dL (2.2-4.2) H 01/27/20 04:15 Albumin/Globulin Ratio 0.9 RATIO (0.9-2.4) 01/27/20 04:15 Lipase 116 U/L (73-393) 01/27/20 04:15 Urine Color Yellow (Yellow) 01/27/20 04:35 Urine Clarity Clear (Clear) 01/27/20 04:35 Urine pH 6.5 (5.0 - 8.0) 01/27/20 04:35 Ur Specific [place] 1.010 (1.002-1.030) 01/27/20 04:35 Urine Protein Negative mg/dl (Negative) 01/27/20 04:35 Urine Glucose (UA) Normal mg/dl (Normal) 01/27/20 04:35 Urine Ketones Negative mg/dl (Negative) 01/27/20 04:35 Urine Occult Blood Negative /ul (Negative) 01/27/20 04:35 Urine Nitrite Negative (Negative) 01/27/20 04:35 Urine Bilirubin Negative mg/dL (Negative) 01/27/20 04:35 Urine Urobilinogen Normal mg/dl (Normal) 01/27/20 04:35 Ur Leukocyte Esterase Negative /ul (Negative) 01/27/20 04:35 Urine RBC 0 SEEN /hpf (0-5) 01/27/20 04:35 Urine WBC 0 SEEN /hpf (0-5) 01/27/20 04:35 Ur Squamous Epith Cells 25-50 SEEN /hpf (5-10) 01/27/20 04:35 Urine Bacteria 0 SEEN /hpf (None Seen) 01/27/20 04:35 Urine Mucus 0 SEEN /hpf (<or=2+) 01/27/20 04:35 Urine Test Negative Negative 01/27/20 04:35 Clinical Impression(s) from Imaging Studies Abdomen/Pelvis CT 01/27/20 05:04 IMPRESSION: Normal unenhanced CT of the abdomen and pelvis. Electronically Signed: Rusty Meyers at 6:24 EST Tel , Service support , Chest X-Ray 01/27/20 06:28 IMPRESSION: Normal x-ray examination of the chest. Previously described nodular density on CT is not clearly visualized on this chest x-ray. Electronically Signed: Taran Fajardo MD at 6:44 EST Tel , Service support , - Medical Decision Making IV was established patient received pain and nausea medications. White count is slightly elevated at 14 with a normal differential. CMP and lipase were normal. Urinalysis contaminated but there is no overt infection or hematuria seen. To evaluate for the possibility of pulmonary embolism a D-dimer was ordered and was negative I did performed a bedside ultrasound I do not see any obvious pericholecystic fluid. I do not see any obvious lithiasis. Patient seem to be a little bit more tender cephalad to where the gallbladder was line. A CT of the abdomen pelvis was obtained. No ureterolithiasis was noted. No stranding around the kidney. Gallbladder appeared within normal limits. There was irregular opacity in the right lower lung that may represent atelectatic changes seen. Therefore a chest x-ray is obtained and I do not see it on the chest x-ra y. At this point I do not see an obvious cause for the patient's pain. I will write her for some pain and nausea medication. When I recommend that if she continues to have symptoms in 24 hours that she return for repeat examination. Certainly if she is doing worse before that time she should return. ED Disposition - Plan for ED Patient: Disposition: Home or Assisted Living Diagnosis: Acute abdominal pain in right upper quadrant Instructions: ED Abdominal Pain Unkn Cause Fem Prescriptions: Hydrocodone Bitart/Apap 5-325 [[place] 5MG-325MG] 1 tab PO Q6H PRN PRN 3 Days #10 tab PRN Reason: Pain Prescription Printed Ondansetron [Zofran Odt] 4 mg PO Q6H PRN PRN #10 tab PRN Reason: Nausea Prescription Printed Referrals: Jennifer Dia MD [Primary Care Provider] - 1 Day (if symptoms persist or return to the ED )
[2020-01-27 04:39] LABS: Bacteria 0 SEEN /hpf (None Seen); Mucous, Urine 0 SEEN /hpf (<or=2+); Red Blood Cells-Urine 0 SEEN /hpf (0-5); White Blood Cells 0 SEEN /hpf (0-5)
[2020-01-27 04:43] LABS: Absolute Lymphocyte Count 5.56 X10^3/uL (0.83-4.51); Absolute Neutrophil Count 7.7 X10^3/uL (2.0-7.7); Basophil# 0.04 X10^3/uL; Basophil% 0.3 % (0-1); Eosinophil# 0.48 X10^3/uL; Eosinophils% 3.3 % (0-5); Hematocrit 43.2 % (37-47); Lymphocyte # 5.56 X10^3/ul (4.0); Lymphocyte % 38.3 % (19-41); Mean Corp Hgb Conc 32.4 g/dL (32-36); Mean Corpuscular Hgb 27.5 pg (27.0-32.0); Mean Corpuscular Volume 84.7 fL (81-99); Mean Platelet Vol. 9.3 fl (6.2-12.0); Monocyte# 0.75 X10^3/uL; Monocyte% 5.2 % (0-10); NRBC Flagged by Analyzer 0 % (0-5); Neutrophil # 7.66 X10^3/uL (2.7-7.7); Neutrophil % 52.6 % (47-70); POSITIVE DIFFERENTIAL YES; Platelet Count 349 K/mm3 (150-450); RBC Distribution Width CV 13.2 % (11.6-14.6); RBC Distribution Width SD 41.1 fl (35.1-43.9); White Blood Count 14.5 K/mm3 (4.4-11.0)
[2020-01-27 04:44] LABS: Color, Urine Yellow (Yellow); Glucose, Dipstick Normal (Normal); Ketone-Dipstick Negative (Negative); Leukocyte Esterase-Dipstick Negative /ul (Negative); Nitrite-Dipstick Negative (Negative); Occult Blood-Urine Negative /ul (Negative); Protein-Dipstick Negative (Negative); Urine Bilirubin Dipstick Negative (Negative); Urine Clarity Clear (Clear); Urine Urobilinogen Normal (Normal); Urine pH 6.5 (5.0 - 8.0)
[2020-01-27 04:49] LABS: Differential Indicated SCAN CRITERIA MET
[2020-01-27 04:50] LABS: Internal QC Validated? YES +Cl - CLEAR BKGD; Pregnancy, Urine Negative Negative; Squamous Epithelial Cells - UA 25-50 SEEN /hpf (5-10)
[2020-01-27] MEDS: Morphine 4 MG/ML Syringe IV (04:51)
[2020-01-27] MEDS: 0.9% Normal Saline 1,000 ML 1000 ML IV (04:51)
[2020-01-27] MEDS: Ondansetron 4 MG/2 ML Vial IV (04:52)
[2020-01-27 05:00] LABS: ALB/GLOB Ratio 0.9 RATIO (0.9-2.4); AST(SGOT) 27 U/L (15-37); Alanine Aminotransfer ALT/SGPT 24 U/L (13-56); Albumin, Serum 3.9 g/dL (3.2-5.0); Alkaline Phosphatase 82 U/L (45-117); Anion Gap 7 (5-15); BUN 9 mg/dL (7-18); BUN/Creat Ratio 10.5 RATIO (10-20); Calcium,Total 8.8 mg/dL (8.5-10.1); Chloride 104 mmol/L (98-107); Creatinine, Serum 0.86 mg/dL (0.55-1.02); EST Glomerular Filtration Rate 83 mL/min (>60); Est Glom Filt Rate - Afr Amer 101 mL/min (>60); Estimated Creatinine Clearance 69.95 ml/min; Globulin 4.4 g/dL (2.2-4.2); Glucose 112 mg/dL (74-106); Lipase 116 U/L (73-393); Protein, Total 8.3 g/dL (6.4-8.2); Sodium Level 137 mmol/L (136-145)
--- NOTE | 2020-01-27 05:04 | CT_ITS ---
STUDY: CT ABDOMEN AND PELVIS WITHOUT CONTRAST REASON FOR EXAM: Female, 29 years old. RIGHT UPPER QUAD PAIN STARTED RL NIGHT, NAUSEA. RADIATION DOSAGE (If Supplied By Facility): CTDIvol = ( 13.66 ) mGy, DLP = ( 631.52 ) mGycm TECHNIQUE: Transaxial images were obtained from the dome of the diaphragm to the symphysis pubis without oral contrast, and without intravenous contrast. Sagittal and coronal images were reconstructed. Individualized dose optimization techniques were used for this CT. COMPARISON: None. FINDINGS: There is irregular opacity in the right lung lower lobe may represent subsegmental atelectasis The visualized portions of the heart are within normal limits. Normal liver. Normal gallbladder and extrahepatic biliary system. Normal spleen. Normal pancreas. Normal bilateral adrenal glands. Normal right kidney. Normal left kidney. Normal visualized stomach. Normal small intestine. Normal colon. The appendix is visualized and appears normal. Normal abdominal aorta. Normal inferior vena cava. Normal retroperitoneum. Normal urinary bladder. Normal abdominal wall. Normal osseous structures. CT/Abdomen/Pelvis without Cont IMPRESSION: Normal unenhanced CT of the abdomen and pelvis. Electronically Signed: Rusty Meyers, at 6:24 EST Tel , Service support ,
[2020-01-27 05:27] LABS: Differential Comment SCANNED
--- NOTE | 2020-01-27 06:28 | RAD_ITS ---
STUDY: X-RAY CHEST REASON FOR EXAM: Female, 29 years old. ABNORMAL RLL ON CT ABD TECHNIQUE: Single AP portable view of the chest. COMPARISON: 04/27/2019, CT of the abdomen and pelvis earlier today FINDINGS: The lungs are clear and expanded. There is no demonstrated pleural abnormality. Normal size heart. Normal mediastinum and freda. Normal visualized pulmonary arteries. Normal visualized aortic arch and descending thoracic aorta. Normal visualized thoracic spine. Normal visualized ribs, clavicles, and shoulders. There is no demonstrated abnormality of the visualized soft tissue structures of the upper abdomen. RAD/Chest 1 View (Portable) IMPRESSION: Normal x-ray examination of the chest. Previously described nodular density on CT is not clearly visualized on this chest x-ray. Electronically Signed: Taran Fajrado MD at 6:44 EST Tel , Service support ,
[2020-01-27 06:49] VITALS: BP 100/79; PULSE 89; RESP 16; O2SAT 97
== END 2020-01-27 06:50 | disposition home or self-care (01) ==
PROVIDERS: Emergency Provider Emergency Medicine; PCP Internal Medicine
DX: R10.11 Right upper quadrant pain (principal); J45.909 Unspecified asthma, uncomplicated; F17.200 Nicotine dependence, unspecified, uncomplicated; E66.9 Obesity, unspecified
CPT/HCPCS: 71045; 74176; 80053; 81001; 81025; 83690; 85025; 85379; 96361; 96374; 96375; 99282; J7030; A4216; J2405

== ENCOUNTER 2020-02-06 07:39 | Outpatient (RCR) | payer MEDICAID, SELFPAY ==
[2019-12-05 13:18] VITALS: BMI 43.5
[2020-01-24 09:41] LABS: Probe Check PASS; Specimen Processing Control PASS
== END 2020-02-11 23:59 ==
LOC: EMPH 07:39
PROVIDERS: PCP Internal Medicine; Visit Provider Family Medicine Geriatric Medicine
DX: Z03.818 Encounter for observation for suspected exposure to other biological agents ruled out (principal)
CPT/HCPCS: 87426; 87635; U0002

== ENCOUNTER 2020-03-05 13:54 | Outpatient (RCR) | payer MEDICAID, SELFPAY | END 2020-03-13 23:59 | LOC: EMPH 13:54 | PROVIDERS: PCP Internal Medicine; Visit Provider Family Medicine Geriatric Medicine | DX: Z03.818 Encounter for observation for suspected exposure to other biological agents ruled out (principal) | CPT/HCPCS: 87426 ==

== ENCOUNTER 2020-10-02 17:17 | Emergency (ER) | payer MEDICAID, SELFPAY ==
[2020-10-02 17:18] VITALS: BP 138/87; PULSE 94; RESP 16; TEMP 35.9; O2SAT 99; BMI 32.3
[2020-10-02] MEDS: 0.9% Normal Saline 1,000 ML 1000 ML IV (18:08)
[2020-10-02] MEDS: Dicyclomine 20 MG/2 ML Vial IM (18:09)
[2020-10-02] MEDS: Ondansetron 4 MG/2 ML Vial IV (18:09)
[2020-10-02] MEDS: Ketorolac 30 MG/ML Syringe IV (18:09)
[2020-10-02 18:25] LABS: Absolute Lymphocyte Count 3.84 X10^3/uL (0.83-4.51); Absolute Neutrophil Count 7.1 X10^3/uL (2.0-7.7); Basophil# 0.02 X10^3/uL; Basophil% 0.2 % (0-1); Eosinophil# 0.24 X10^3/uL; Hematocrit 41.7 % (37-47); Lymphocyte # 3.84 X10^3/ul (0.83-4.51); Lymphocyte % 32.7 % (19-41); Mean Corp Hgb Conc 33.6 g/dL (32-36); Mean Corpuscular Volume 86.3 fL (81-99); Mean Platelet Vol. 9.6 fl (6.2-12.0); Monocyte# 0.53 X10^3/uL; Monocyte% 4.5 % (0-10); NRBC Flagged by Analyzer 0 % (0-5); Neutrophil # 7.06 X10^3/uL (2.7-7.7); Neutrophil % 60.3 % (47-70); Platelet Count 260 K/mm3 (150-450); RBC Distribution Width CV 12.8 % (11.6-14.6); RBC Distribution Width SD 39.9 fl (35.1-43.9); Red Blood Count 4.83 M/mm3 (4.2-5.4); White Blood Count 11.7 K/mm3 (4.4-11.0)
[2020-10-02 18:33] LABS: Internal QC Validated? YES +Cl - CLEAR BKGD; Pregnancy, Serum, hCG Quali. NEGATIVE Negative
--- NOTE | 2020-10-02 18:54 | EDS_ITS ---
HPI History of Present Illness Chief Complaint: Nausea/Vomiting/Diarrhea Informant: patient Onset/Context/Timing Onset: Yesterday Current Severity: Moderate Maximum Severity: Moderate Narrative Narrative: Patient presents with nausea, vomiting, and diarrhea for the past 24 hours. She states she will have abdominal cramping and some nausea, but no focal abdominal pain. She denies blood in the stool or emesis. No fever or chills. No ill contacts and no one else at home sick. PFSH PFS Medical History Asthma Home Medications azithromycin 250 mg tablet See Rx Instructions PO .COMPLEX #6 tab 08/12/20 [Rx Last Taken Unknown] ondansetron 4 mg PO Q8H PRN #10 tab 10/02/20 [Rx Last Taken Unknown] potassium chloride 20 meq PO BID #6 tab 10/02/20 [Rx Last Taken Unknown] Allergy/AdvReac Type Severity Reaction Status Date / Time No Known Drug Allergies Allergy Other Verified 10/02/20 17:18 Surgical History History of History of carpal tunnel surgery Social History Smoking Status: Current every day smoker tobacco type: cigarettes alcohol intake: never ROS ROS ED Constitutional Constitutional ED: Denies chills or fever(s) Eyes Eyes: Denies change in vision ENT ENT ED: Denies sore throat Cardiovascular Cardiovascular: Denies chest pain Respiratory/Chest Respiratory/Chest: Denies cough or dyspnea Gastrointestinal Gastrointestinal: Reports abdominal pain, diarrhea, nausea and vomiting Genitourinary Genitourinary ED: Denies dysuria, hematuria or urinary frequency Musculoskeletal Musculoskeletal: Denies back pain Integumentary Denies rash Neurologic Neurologic: Denies headache(s) or weakness Psychiatric Psychiatric: Denies anxiety or depression Endocrine Endocrinology: Denies polydipsia or polyuria Allergic/Immunologic Allergic/Immunologic ED: Denies urticaria EXAM Physical Exam Const Vital Signs: 10/02/20 17:18 10/02/20 21:42 Temperature 96.7 F L Temperature Source Temporal Pulse Rate 94 71 Respiratory Rate 16 16 Blood Pressure 138/87 H 121/78 H Blood Pressure Mean 104 Pulse Ox 99 98 Oxygen Delivery Method Room Air Positive well nourished and well developed General Appearance ED: well developed HEENT Reports normocephalic and head/scalp atraumatic Eyes PERRL and EOMs intact bilaterally Neck supple Chest Wall inspection of chest normal and palpation of chest normal Resp normal respiratory effort and clear to auscultation bilaterally Cardio regular rate and regular rhythm GI non-tender Auscultation: hypoactive bowel sounds Palpation: soft Back/Spine no CVA tenderness Extremity normal to inspection Neuro oriented x3 and no sensory deficits noted Sensorium / Orientation: alert Motor Exam: strength 5/5 throughout Psych mental status grossly normal Skin no rashes or lesions noted MDM MDM MDM Narrative Medical decision making narrative: Patient was given Toradol, Zofran, Bentyl, and IV fluids. Labs and urinalysis are obtained. Lab Data Attestation: I reviewed the patient's lab results. Labs: Laboratory Results - last 24 hr 10/02/20 10/02/20 10/02/20 18:00 18:00 18:00 WBC 11.7 H RBC 4.83 Hgb 14.0 Hct 41.7 MCV 86.3 MCH 29.0 MCHC 33.6 RDW Std Deviation 39.9 RDW Coeff of Madonna 12.8 Plt Count 260 MPV 9.6 Immature Gran % (Auto) 0.300 Neut % (Auto) 60.3 Lymph % (Auto) 32.7 Dixon % (Auto) 4.5 Eos % (Auto) 2.0 Baso % (Auto) 0.2 Absolute Neuts (auto) 7.1 Absolute Lymphs (auto) 3.84 Nucleated RBC % 0 Sodium 142 Potassium 3.3 L Chloride 108 H Carbon Dioxide 24.0 Anion Gap 10 BUN 10 Creatinine 1.00 Estim Creat Clear Calc 59.62 Est GFR (MDRD) Af Amer 84 Est GFR (MDRD) Non-Af 70 BUN/Creatinine Ratio 10.0 Glucose 89 Calcium 8.8 Total Bilirubin 1.30 H Direct Bilirubin 0.27 AST 41 H ALT 36 Alkaline Phosphatase 64 Total Protein 7.8 Albumin 4.1 Globulin 3.7 Lipase 120 Serum , Qual NEGATIVE Urine Color Urine Clarity Urine pH Ur Specific [place] Urine Protein Urine Glucose (UA) Urine Ketones Urine Occult Blood Urine Nitrite Urine Bilirubin Urine Urobilinogen Ur Leukocyte Esterase Urine RBC Urine WBC Ur Squamous Epith Cells Urine Bacteria Urine Mucus 10/02/20 19:46 WBC RBC Hgb Hct MCV MCH MCHC RDW Std Deviation RDW Coeff of Madonna Plt Count MPV Immature Gran % (Auto) Neut % (Auto) Lymph % (Auto) Dixon % (Auto) Eos % (Auto) Baso % (Auto) Absolute Neuts (auto) Absolute Lymphs (auto) Nucleated RBC % Sodium Potassium Chloride Carbon Dioxide Anion Gap BUN Creatinine Estim Creat Clear Calc Est GFR (MDRD) Af Amer Est GFR (MDRD) Non-Af BUN/Creatinine Ratio Glucose Calcium Total Bilirubin Direct Bilirubin AST ALT Alkaline Phosphatase Total Protein Albumin Globulin Lipase Serum , Qual Urine Color Yellow Urine Clarity Clear Urine pH 6.0 Ur Specific [place] 1.010 Urine Protein Negative Urine Glucose (UA) Normal Urine Ketones 5 H Urine Occult Blood 10 H Urine Nitrite Negative Urine Bilirubin Negative Urine Urobilinogen Normal Ur Leukocyte Esterase 100 H Urine RBC 0 SEEN Urine WBC 0-5 SEEN Ur Squamous Epith Cells 0-5 SEEN Urine Bacteria 1+ Urine Mucus 0 SEEN Treatment and Re-Evaluation Comments:: Repeat evaluation patient is feeling improved. She was able to tolerate p.o. fluids. Labs are largely unremarkable, only significant for mildly low potassium at 3.3. I advised her she likely has a viral gastroenteritis. Patient is given prescription for Zofran and will be given 3 days of potassium replacement at home. Discharge Plan Triage Chief Complaint: Nausea/Vomiting/Diarrhea ED Provider: Toña Horton Dx/Rx/DC Orders Clinical Impression: History of viral gastroenteritis Instructions: ED Gastroenteritis, Viral (Adult) Prescriptions: New ondansetron 4 mg tablet,disintegrating 4 mg PO Q8H PRN (Reason: nausea and vomiting) Qty: 10 RF: 0 potassium chloride 20 mEq tablet extended release 20 meq PO BID Qty: 6 RF: 0 No Action azithromycin 250 mg tablet See Rx Instructions PO .COMPLEX Qty: 6 RF: 0 Primary Care Provider: Jennifer Dia Referrals: Jennifer Dia MD [Primary Care Provider] - 1-2 Weeks Disposition Disposition: Home, Self Care Discharge Date/Time: 10/02/20 21:42
[2020-10-02 19:54] LABS: Mucous, Urine 0 SEEN /hpf (<or=2+); Red Blood Cells-Urine 0 SEEN /hpf (0-5)
[2020-10-02 20:01] LABS: AST(SGOT) 41 U/L (15-37); Alanine Aminotransfer ALT/SGPT 36 U/L (13-56); Albumin, Serum 4.1 g/dL (3.2-5.0); Alkaline Phosphatase 64 U/L (45-117); Anion Gap 10 (5-15); BUN 10 mg/dL (7-18); Bilirubin, Direct 0.27 mg/dL (0.00-0.30); Calcium,Total 8.8 mg/dL (8.5-10.1); Chloride 108 mmol/L (98-107); EST Glomerular Filtration Rate 70 mL/min (>60); Est Glom Filt Rate - Afr Amer 84 mL/min (>60); Estimated Creatinine Clearance 59.62 ml/min; Globulin 3.7 g/dL (2.2-4.2); Glucose 89 mg/dL (74-106); Lipase 120 U/L (73-393); Potassium 3.3 mmol/L (3.5-5.1); Protein, Total 7.8 g/dL (6.4-8.2); Sodium Level 142 mmol/L (136-145)
[2020-10-02] MEDS: 0.9% Normal Saline 1,000 ML 150 ML IV (20:15)
[2020-10-02 20:28] LABS: Color, Urine Yellow (Yellow); Glucose, Dipstick Normal (Normal); Ketone-Dipstick 5 mg/dl (Negative); Leukocyte Esterase-Dipstick 100 /ul (Negative); Nitrite-Dipstick Negative (Negative); Occult Blood-Urine 10 /ul (Negative); Protein-Dipstick Negative (Negative); Urine Bilirubin Dipstick Negative (Negative); Urine Clarity Clear (Clear); Urine Urobilinogen Normal (Normal)
[2020-10-02 21:03] LABS: Bacteria 1+ /hpf (None Seen); Squamous Epithelial Cells - UA 0-5 SEEN /hpf (5-10); White Blood Cells 0-5 SEEN /hpf (0-5)
[2020-10-02 21:42] VITALS: BP 121/78; PULSE 71; RESP 16; O2SAT 98
== END 2020-10-02 21:42 | disposition home or self-care (01) ==
PROVIDERS: Emergency Provider Emergency Medicine; PCP Internal Medicine
DX: A08.4 Viral intestinal infection, unspecified (principal); J45.909 Unspecified asthma, uncomplicated; F17.210 Nicotine dependence, cigarettes, uncomplicated
CPT/HCPCS: 80048; 80076; 81001; 83690; 84703; 85025; 96361; 96372; 96374; 96375; 99283; J7030; A4216; J2405

== ENCOUNTER 2020-11-11 12:13 | Outpatient (RCR) | payer MEDICAID, SELFPAY | END 2020-11-11 23:59 | LOC: EMPH 12:13 | PROVIDERS: PCP Internal Medicine; Visit Provider Family Medicine Geriatric Medicine | DX: Z03.818 Encounter for observation for suspected exposure to other biological agents ruled out (principal) | CPT/HCPCS: 87426 ==

== ENCOUNTER 2020-11-21 14:02 | Outpatient (RCR) | payer MEDICAID, SELFPAY ==
[2020-11-12 00:12] VITALS: BMI 37.2
== END 2020-12-11 23:59 ==
LOC: EMPH 14:02
PROVIDERS: PCP Internal Medicine; Visit Provider Family Medicine Geriatric Medicine
DX: Z03.818 Encounter for observation for suspected exposure to other biological agents ruled out (principal)
CPT/HCPCS: 87426

== ENCOUNTER → 2021-09-18 | Outpatient (CLI) | payer MEDICAID, SELFPAY ==
--- NOTE | 2021-09-18 15:24 | NEURO_ITS ---
NCS and/or EMG Patient Report Ordering Doctor: Andrew Bailey DATE OF SERVICE: 09/18/21 Indication: One year of left wrist pain and fluctuating numbness in the first three digits as well as the lateral aspect of digit 4. Symptoms feel similar to carpal tunnel she was previously treated for on the right. There is no associated, localized or radicular neck pain. Findings: Nerve conduction studies were performed in the left upper extremity. The left median motor study recording the abductor pollicis brevis showed a normal amplitude, prolonged distal latency and slowed conduction velocity. The left ulnar motor study recording the abductor digiti minimi showed a normal amplitude, normal distal latency and normal conduction velocity. No conduction block or focal slowing was present across the elbow. Comparison lumbrical/interosseous studies demonstrated prolonged left median responses compared to the ulnar. The left median sensory response recording digit two showed a normal amplitude, prolonged latency and markedly slowed conduction velocity. The left ulnar sensory response recording digit five showed a normal amplitude, latency and conduction velocity. The left radial sensory response recording over the extensor snuff box showed a normal amplitude, latency and conduction velocity. Needle EMG of the left upper extremity was omitted given the convincing nature of the nerve conduction studies and the lack of superimposed radicular symptoms. Impression: This is an abnormal study. 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 The lesion is of moderate electrical severity. These findings would be compatible with the clinical diagnosis of carpal tunnel syndrome. Gab Gonzalez D.O. Multi Select Codes Neurology Neurology Interp Codes: 85330-44 [facility] ([facility]p)
== END | disposition home or self-care (01) ==
LOC: PSN 14:34
PROVIDERS: PCP Internal Medicine; Referring Provider Physician Assistant; Visit Provider Physician Assistant
DX: M25.532 Pain in left wrist (principal); G62.9 Polyneuropathy, unspecified; R20.2 Paresthesia of skin
CPT/HCPCS: 95910

== ENCOUNTER → 2022-07-22 | Outpatient (CLI) | payer MEDICAID, SELFPAY ==
--- NOTE | 2022-07-22 10:07 | RAD_ITS ---
STUDY: X-RAY - ESOPHAGUS (BARIUM SWALLOW) WITH FLUOROSCOPY REASON FOR EXAM: Female, 31 years old. GERD TECHNIQUE: 15 view(s) of the esophagus were obtained following swallowing of barium. FLUOROSCOPY TIME (if supplied): (29 seconds) minutes/seconds. 8.72 mGy COMPARISON: None. FINDINGS: There is no demonstrated esophageal foreign body. There is no demonstrated stricture or mucosal abnormality. Normal gastroesophageal junction, without a demonstrated hiatal hernia. The patient ingested a 12 mm tablet of barium without any difficulty. Normal visualized aortic arch and descending thoracic aorta. Normal visualized pulmonary parenchyma. Normal visualized osseous structures of the thorax. RAD/Esophagus Dual Contrast IMPRESSION: Normal plain film x-ray examination (barium swallow) of the esophagus. Electronically Signed: Ministerio Bhatia MD at 10:52 EDT ,
== END | disposition home or self-care (01) ==
LOC: RAD 09:59
PROVIDERS: PCP Internal Medicine; Referring Provider Otolaryngology; Visit Provider Otolaryngology
DX: K21.9 Gastro-esophageal reflux disease without esophagitis (principal)
CPT/HCPCS: 74221

== ENCOUNTER → 2022-08-18 | Outpatient (CLI) | payer MEDICAID, SELFPAY ==
[2022-08-18 13:01] LABS: Mucous, Urine 0 SEEN /hpf (<or=2+); Red Blood Cells-Urine 0 SEEN /hpf (0-5); Squamous Epithelial Cells - UA 0 SEEN /hpf (5-10); White Blood Cells 0 SEEN /hpf (0-5)
[2022-08-18 13:33] LABS: Color, Urine Yellow (Yellow); Glucose, Dipstick Normal (Normal); Ketone-Dipstick 5 mg/dl (Negative); Leukocyte Esterase-Dipstick Negative /ul (Negative); Nitrite-Dipstick Negative (Negative); Occult Blood-Urine 25 /ul (Negative); Protein-Dipstick 15 mg/dl (Negative); Urine Bilirubin Dipstick Negative (Negative); Urine Clarity Cloudy (Clear); Urine Urobilinogen Normal (Normal)
[2022-08-18 14:15] LABS: Amorphous Sediment 2+; Bacteria 1+ /hpf (None Seen)
== END | disposition home or self-care (01) ==
LOC: LABSPEC 12:52
PROVIDERS: PCP Internal Medicine; Referring Provider Physician Assistant; Visit Provider Physician Assistant
DX: R30.0 Dysuria (principal); R39.15 Urgency of urination
CPT/HCPCS: 81001; 87086; 87088

== ENCOUNTER → 2022-09-01 | Outpatient (CLI) | payer MEDICAID, SELFPAY | END | disposition home or self-care (01) | LOC: LABSPEC 11:26 | PROVIDERS: PCP Internal Medicine; Referring Provider Physician Assistant Surgical; Visit Provider Physician Assistant Surgical | DX: Z20.2 Contact with and (suspected) exposure to infections with a predominantly sexual mode of transmission (principal) | CPT/HCPCS: 87086; 87088; 87491; 87591 ==

== ENCOUNTER 2022-10-09 02:26 | Emergency (ER) | payer MEDICAID, SELFPAY ==
[2022-10-09 02:27] VITALS: BP 133/82; PULSE 108; RESP 16; TEMP 36.5; O2SAT 98
[2022-10-09 02:28] VITALS: BP 135/84; PULSE 112; RESP 18; TEMP 36.5; O2SAT 98; BMI 35.4
--- NOTE | 2022-10-09 03:20 | EDS_ITS ---
HPI History of Present Illness Chief Complaint: Dental Informant: patient Narrative Narrative: Patient states she has been having right molar pain since it cracked a month or more ago, tonight the pain is worse and seems to be swelling in her right jaw. No fevers or chills. PFSH PFSH Medical History Asthma COVID-19 Urinary tract infection with hematuria Home Medications etonogestrel 68 mg subdermal implant (Nexplanon) 1 implant subdermal ONCE 07/20/21 [History Last Taken Unknown] montelukast 10 mg tablet 10 mg PO DAILY 07/20/21 [History Last Taken Unknown] pantoprazole 40 mg tablet,delayed release 40 mg PO DAILY 07/20/21 [History Last Taken Unknown] fluconazole 200 mg tablet 200 mg PO DAILY #1 TAB 05/13/22 [Rx Last Taken Unknown] benzocaine 15 mg-menthol 3.6 mg lozenges (Cepacol Sore Throat (benzocaine- menthol)) 1 therese mucous membrane Q2H PRN sore throat #16 ea 08/05/22 [Rx Last Taken Unknown] ciprofloxacin HCl 500 mg tablet (Cipro) 500 mg PO BID #14 tabs 08/18/22 [Rx Last Taken Unknown] amoxicillin 500 mg tablet 500 mg PO TID #30 tabs 10/09/22 [Rx Last Taken Unk nown] naproxen 500 mg tablet 500 mg PO BID PRN pain #14 tabs 10/09/22 [Rx Last Taken Unknown] Allergy/AdvReac Type Severity Reaction Status Date / Time No Known Drug Allergies Allergy Other Verified 10/09/22 02:27 Surgical History History of History of carpal tunnel surgery Social History Smoking Status: Current every day smoker tobacco type: cigarettes alcohol intake: never ROS ROS ED Constitutional Constitutional ED: Denies chills or fever(s) Eyes Eyes: Denies change in vision or double vision ENT ENT ED: Reports dental pain; Denies sinus pain or throat swelling Cardiovascular Cardiovascular: Denies chest pain or palpitations Respiratory/Chest Respiratory/Chest: Denies cough or dyspnea Integumentary Denies abscess or rash Neurologic Neurologic: Denies headache(s), paresthesias or weakness EXAM Physical Exam Const Vital Signs: 10/09/22 02:28 10/09/22 02:27 Temperature 97.7 F L 97.7 F L Temperature Source Oral Oral Pulse Rate 112 H 108 H Respiratory Rate 18 16 Blood Pressure 135/84 H 133/82 H Blood Pressure Mean 101 99 Pulse Ox 98 98 Oxygen Delivery Method Room Air Room Air Positive well nourished and well developed General Appearance ED: well developed and NAD HEENT HEENT Narrative: No trismus. There is a small cavity external posterior aspect of tooth #31, the tooth is tender. There is no gingivitis. There is no bleeding. There is no abscess or objective evidence of asymmetry in her face/jaw. Face and Sinus: sinuses nontender Throat: posterior oropharynx normal Eyes PERRL and EOMs intact bilaterally Neck no lymphadenopathy and supple Resp normal respiratory effort Neuro oriented x3 and CN's II-XII intact bilaterally Sensorium / Orientation: alert Gait (Neuro): normal gait Psych mental status grossly normal and thought process normal Skin no rashes or lesions noted and no wounds MDM MDM MDM Narrative Medical decision making narrative: Cavitt temporary filling was placed. This did help her pain significantly. Place her on an antibiotic give her the rest of the container of Cavitt with appropriate instructions, and follow-up with dentistry. Discharge Plan Triage Chief Complaint: Dental ED Provider: Sebas Sy Dx/Rx/DC Orders Clinical Impression: Dental cavity Instructions: ED Dental Cavity Prescriptions: New amoxicillin 500 mg tablet 500 mg PO TID Qty: 30 0RF naproxen 500 mg tablet 500 mg PO BID PRN (Reason: pain) Qty: 14 0RF No Action pantoprazole 40 mg tablet,delayed release (DR/EC) 40 mg PO DAILY montelukast 10 mg tablet 10 mg PO DAILY Patient Comments: TAKE 1 TABLET BY MOUTH DAILY AT BEDTIME Nexplanon 68 mg implant 1 implant subdermal ONCE Rx Instructions: as a single dose fluconazole 200 mg tablet 200 mg PO DAILY Qty: 1 0RF Rx Instructions: as instructed Cepacol Sore Throat (maddie-men) 15-3.6 mg lozenge 1 therese mucous membrane Q2H PRN (Reason: sore throat) Qty: 16 0RF ciprofloxacin HCl [Cipro] 500 mg tablet 500 mg PO BID Qty: 14 0RF Primary Care Provider: Jennifer Dia Referrals: Jennifer Dia MD [Primary Care Provider] - Dentist,Your [STAFF PHYSICIAN] - As soon as possible Disposition Disposition: Home, Self Care
[2022-10-09] MEDS: AMOXICILLIN 500 MG CAPSULE PO (03:27)
[2022-10-09 03:28] VITALS: BP 116/78; PULSE 98; RESP 18; O2SAT 98
== END 2022-10-09 03:30 | disposition home or self-care (01) ==
PROVIDERS: Emergency Provider Emergency Medicine; PCP Internal Medicine; Visit Provider Emergency Medicine
DX: K02.9 Dental caries, unspecified (principal); J45.909 Unspecified asthma, uncomplicated; Z86.16 Personal history of COVID-19; F17.210 Nicotine dependence, cigarettes, uncomplicated
CPT/HCPCS: 99283

== ENCOUNTER 2023-01-26 19:45 | Emergency (ER) | payer MEDICAID, SELFPAY ==
[2023-01-26 19:46] VITALS: BP 155/110; PULSE 118; RESP 15; TEMP 36.4; O2SAT 100; BMI 35.6
[2023-01-26] MEDS: Mag Hydrox/Al Hydrox/Simeth 30 ML UDC PO (21:58)
[2023-01-26 22:00] LABS: Bacteria 0 SEEN /hpf (None Seen); Mucous, Urine 0 SEEN /hpf (<or=2+); Red Blood Cells-Urine 0 SEEN /hpf (0-5)
[2023-01-26 22:02] LABS: Absolute Lymphocyte Count 6.01 X10^3/uL (0.83-4.51); Absolute Neutrophil Count 7.9 X10^3/uL (2.0-7.7); Basophil# 0.04 X10^3/uL; Basophil% 0.3 % (0-1); Eosinophil# 0.25 X10^3/uL; Eosinophils% 1.7 % (0-5); Hematocrit 40.5 % (37-47); Hemoglobin 13.4 g/dL (12.0-15.0); Lymphocyte # 6.01 X10^3/ul (0.83-4.51); Lymphocyte % 40.3 % (19-41); Mean Corp Hgb Conc 33.1 g/dL (32-36); Mean Corpuscular Hgb 29.6 pg (27.0-32.0); Mean Corpuscular Volume 89.6 fL (81-99); Mean Platelet Vol. 8.7 fl (6.2-12.0); Monocyte% 4.7 % (0-10); NRBC Flagged by Analyzer 0 % (0-5); Neutrophil # 7.85 X10^3/uL (2.7-7.7); Neutrophil % 52.7 % (47-70); POSITIVE DIFFERENTIAL YES; Platelet Count 314 K/mm3 (150-450); RBC Distribution Width CV 12.6 % (11.6-14.6); RBC Distribution Width SD 41.5 fl (35.1-43.9); Red Blood Count 4.52 M/mm3 (4.2-5.4); White Blood Count 14.9 K/mm3 (4.4-11.0)
[2023-01-26 22:03] LABS: Color, Urine Yellow (Yellow); Glucose, Dipstick Normal (Normal); Ketone-Dipstick Negative (Negative); Leukocyte Esterase-Dipstick Negative /ul (Negative); Nitrite-Dipstick Negative (Negative); Occult Blood-Urine Negative /ul (Negative); Protein-Dipstick Negative (Negative); Urine Bilirubin Dipstick Negative (Negative); Urine Clarity Clear (Clear); Urine Urobilinogen Normal (Normal)
[2023-01-26 22:12] LABS: ALB/GLOB Ratio 1.1 RATIO (0.9-2.4); AST(SGOT) 22 U/L (15-37); Alanine Aminotransfer ALT/SGPT 19 U/L (13-56); Alkaline Phosphatase 65 U/L (45-117); Anion Gap 8 (5-15); BUN 7 mg/dL (7-18); BUN/Creat Ratio 7.5 RATIO (10-20); Calcium,Total 9.1 mg/dL (8.5-10.1); Chloride 106 mmol/L (98-107); Creatinine, Serum 0.93 mg/dL (0.55-1.02); EST Glomerular Filtration Rate 75 mL/min (>60); Est Glom Filt Rate - Afr Amer 90 mL/min (>60); Estimated Creatinine Clearance 62.96 ml/min; Globulin 3.8 g/dL (2.2-4.2); Glucose 89 mg/dL (74-106); Lipase 63 U/L (13-75); Potassium 3.1 mmol/L (3.5-5.1); Protein, Total 7.8 g/dL (6.4-8.2); Sodium Level 139 mmol/L (136-145)
[2023-01-26 22:13] LABS: Differential Indicated SCAN CRITERIA MET
[2023-01-26 22:28] LABS: Differential Comment SCANNED
[2023-01-26 22:30] LABS: Squamous Epithelial Cells - UA 0-5 SEEN /hpf (5-10); White Blood Cells 0-5 SEEN /hpf (0-5)
[2023-01-26 22:31] LABS: Internal QC Validated? YES +Cl - CLEAR BKGD; Pregnancy, Urine Negative Negative
--- NOTE | 2023-01-26 22:45 | US_ITS ---
INDICATION: Epigastric abd pain COMPARISON: 01/27/[address] and 05/06/2016 gallbladder ultrasound. FINDINGS: 168 grayscale ultrasound images of the right upper quadrant. PORTAL VEIN: Main portal vein is patent with appropriate directional flow. AORTA: Not well visualized. IVC: No obvious IVC filling defect. BILIARY SYSTEM: Common bile duct measures 0.4 cm in diameter. GALLBLADDER:? No gallbladder filling defects. Gallbladder wall thickness of 0.18 cm. No sonographic Briggs sign. No pericholecystic fluid. LIVER: Unremarkable hepatic parenchyma. PANCREAS: Visualized portions of the pancreas are unremarkable. KIDNEY: Right kidney is without shadowing nephrolith or hydronephrosis. No significant free fluid. US/Gallbladder IMPRESSION: Unremarkable right upper quadrant ultrasound. Electronically Signed: Umesh Franklin MD at 23:48 EST ,
[2023-01-26 22:50] VITALS: BP 136/98; PULSE 87; RESP 12; O2SAT 100
--- NOTE | 2023-01-27 00:04 | ED.VIS.GI ---
HPI HPI - GI History of Present Illness Chief Complaint: Abd Pain Informant: patient Narrative Narrative: Patient is a 32 year old female with history of gallbladder sludge, GERD, asthma and elevated white blood cell count presenting with epigastric abdominal pain. Patient states around 10 PM she developed pain in her epigastric region. Has been worsening since then. It radiates to her back, sharp and stabbing. She has associated nausea and 2 episodes of vomiting. She denies any blood or bile in the vomit. Denies any lower abdominal pain or urinary symptoms. Does not know her last menstrual period was because she has Nexplanon. Notes her bowel movements have been more loose and irregular over the past week or so but attributes that to having some creamer last week which she thought was nondairy but patient does have a history of lactase intolerance 2. She notes she did have similar symptoms about 2 years ago and was told she had gallbladder sludge. She is also put on Protonix in the past but notes she ran out of it a couple weeks ago. She has appointment to see her doctor on Tuesday. She denies any fever or chills. No she is been under increased stress lately. Denies any black or blood in her stool. States that she does drink an energy drink daily and does not particularly adhere to a low acid diet. Denies any significant alcohol use. No other complaints at this time. [facility] Medical History Asthma COVID-19 Urinary tract infection with hematuria Home Medications etonogestrel 68 mg subdermal implant (Nexplanon) 1 implant subdermal ONCE 07/20/21 [History Last Taken Unknown] montelukast 10 mg tablet 10 mg PO DAILY 07/20/21 [History Last Taken Unknown] buspirone 15 mg tablet 15 mg PO BID 01/26/23 [History Last Taken Unknown] hydroxyzine HCl 25 mg tablet 25 mg PO Q8H PRN anxiety 01/26/23 [History Last Taken Unknown] lorazepam 0.5 mg tablet 0.5 mg PO Q8H PRN anxiety 01/26/23 [History Last Taken Unknown] trazodone 50 mg tablet 50 mg PO QHS PRN insomnia 01/26/23 [History Last Taken Unknown] venlafaxine 75 mg capsule,extended release 24 hr 75 mg PO QHS 01/26/23 [History Last Taken Unknown] pantoprazole 40 mg tablet,delayed release 40 mg PO DAILY 14 days #14 tabs 01/27/23 [Rx Last Taken Unknown] Allergy/AdvReac Type Severity Reaction Status Date / Time No Known Drug Allergies Allergy Other Verified 01/26/23 19:50 Surgical History History of History of carpal tunnel surgery Social History Smoking Status: Heavy Smoker (>10/day) alcohol intake: never ROS ROS ED Constitutional Constitutional ED: Denies chills or fever(s) Cardiovascular Cardiovascular: Denies chest pain Respiratory/Chest Respiratory/Chest: Denies cough Gastrointestinal Gastrointestinal: Reports abdominal pain, nausea and vomiting; Denies constipation, diarrhea or melena Genitourinary Genitourinary ED: Denies dysuria, hematuria or urinary frequency Musculoskeletal Musculoskeletal: Denies arthralgias or myalgias Integumentary Denies rash Neurologic Neurologic: Denies headache(s) Psychiatric Psychiatric: Reports anxiety Hematologic/Lymphatic Hematologic/Lymphatic: Denies easy bleeding or easy bruising EXAM Physical Exam Const Vital Signs: 01/26/23 19:46 01/26/23 22:50 01/27/23 00:41 Temperature 97.5 F L Temperature Source Temporal Pulse Rate 118 H 87 104 H Respiratory Rate 15 12 16 Blood Pressure 155/110 H 136/98 H 138/68 H Blood Pressure Mean 125 110 91 Pulse Ox 100 100 99 Oxygen Delivery Method Room Air Room Air 01/27/23 00:41 Temperature Temperature Source Pulse Rate 104 H Respiratory Rate 16 Blood Pressure 138/68 H Blood Pressure Mean 91 Pulse Ox 99 Oxygen Delivery Method Positive well nourished and well developed General Appearance ED: well developed and NAD; Negative for pallor HEENT Reports moist mucous membranes normocephalic and atraumatic Eyes PERRL General Eye ED: Negative for scleral icterus Neck supple Resp normal respiratory effort and clear to auscultation bilaterally Cardio regular rate, regular rhythm and no murmurs GI Auscultation: normoactive bowel sounds Palpation: soft and tender epigastric; Negative for guarding, rigid or rebound tenderness present Extremity full ROM Neuro Sensorium / Orientation: alert, oriented to person, oriented to place and oriented to time Psych mental status grossly normal and thought process normal Skin no wounds General Skin Exam: Negative for jaundice or pallor MDM MDM MDM Narrative Medical decision making narrative: Is evaluated for worsening epigastric abdominal pain. She recently stopped her antacid Protonix couple weeks ago because she ran out. Suspect this might be related. She has a negative Briggs sign however she does have a pretty significant leukocytosis of 14.9. This is nonspecific and could be elevated with her vomiting. Because of this we will obtain a right upper quadrant ultrasound as she reports a history of gallbladder sludge. Remainder of work-up is largely negative. She does not have an acute anemia, signs of urinary tract infection and urine is normal. She has normal liver panel and normal BMP. She has a very mildly low potassium 3.1 which is nonspecific. She was tachycardic upon arrival but this resolved without any intervention. Is given a GI cocktail which she states it did not help she does look a bit more comfortable. Is given a dose of IV Protonix. Right upper quadrant ultrasound obtained does not show any acute process. Patient be given a referral for outpatient surgery. At this time she does not have a surgical abdomen and is improving vital signs. I do not think she requires a CT of her abdomen pelvis. Discussed that ulcers and reflux do not show up on imaging and need an EGD to be diagnosed. Discomfort she will need to follow-up with surgery for this. She has been referred in the past but has not done it. Discussed low acid diet. Patient does mention to me that she had been referred to hematology oncology in the past for elevated white blood cell count and they attributed to her asthma. Precautions. Discharged home in stable condition Diagnosis includes pancreatitis, peptic ulcer disease, GERD, biliary colic, cholelithiasis or gastritis Lab Data Labs: Laboratory Results - last 24 hr 01/26/23 01/26/23 01/26/23 21:01 21:01 21:40 WBC Cancelled Corrected WBC Cancelled RBC Cancelled Hgb Cancelled Hct Cancelled MCV Cancelled MCH Cancelled MCHC Cancelled RDW Std Deviation Cancelled RDW Coeff of Madonna Cancelled Plt Count Cancelled MPV Cancelled Immature Gran % (Auto) Cancelled Neut % (Auto) Cancelled Lymph % (Auto) Cancelled [place] % (Auto) Cancelled Eos % (Auto) Cancelled Baso % (Auto) Cancelled Absolute Neuts (auto) Cancelled Absolute Lymphs (auto) Cancelled Total Counted Cancelled Neutrophils % (Manual) Cancelled Band Neutrophils % Cancelled Lymphocytes % (Manual) Cancelled Monocytes % (Manual) Cancelled Eosinophils % (Manual) Cancelled Basophils % (Manual) Cancelled Metamyelocytes % Cancelled Myelocytes % Cancelled Promyelocytes % Cancelled Blast Cells % Cancelled Plasma Cell % (Manual) Cancelled Other Cells % Cancelled Nucleated RBC % Cancelled Nucleated RBCs/100 WBC Cancelled Differential Comment Cancelled Diff Path Review Cancelled Hypersegmented Neuts Cancelled Atypical Lymphocytes Cancelled Reactive Lymphocytes Cancelled Smudge Cells Cancelled Toxic Granulation Cancelled Toxic Vacuolation Cancelled Dohle Bodies Cancelled [place]ia Rods Cancelled Platelet Estimate Cancelled Plt Morphology Comment Cancelled RBC Morphology Cancelled Cancelled Polychromasia Cancelled Hypochromasia Cancelled Poikilocytosis Cancelled Basophilic Stippling Cancelled Anisocytosis Cancelled Microcytosis Cancelled Macrocytosis Cancelled Spherocytes Cancelled Sickle Cells Cancelled Target Cells Cancelled Tear Drop Cells Cancelled Ovalocytes Cancelled Stomatocytes Cancelled [place] Bodies Cancelled [place] Cells Cancelled Bite Cells Cancelled Crenated Cell Cancelled Acanthocytes (Spur) Cancelled Rouleaux Cancelled Schistocytes Cancelled Sodium 139 Potassium 3.1 L Chloride 106 Carbon Dioxide 25.0 Anion Gap 8 BUN 7 Creatinine 0.93 Estim Creat Clear Calc 62.96 Est GFR (MDRD) Af Amer 90 Est GFR (MDRD) Non-Af 75 BUN/Creatinine Ratio 7.5 L Glucose 89 Calcium 9.1 Total Bilirubin 0.90 AST 22 ALT 19 Alkaline Phosphatase 65 Total Protein 7.8 Albumin 4.0 Globulin 3.8 Albumin/Globulin Ratio 1.1 Lipase 63 Urine Color Yellow Urine Clarity Clear Urine pH 8.0 Ur Specific [place] 1.010 Urine Protein Negative Urine Glucose (UA) Normal Urine Ketones Negative Urine Occult Blood Negative Urine Nitrite Negative Urine Bilirubin Negative Urine Urobilinogen Normal Ur Leukocyte Esterase Negative Urine RBC 0 SEEN Urine WBC 0-5 SEEN Ur Squamous Epith Cells 0-5 SEEN Urine Bacteria 0 SEEN Urine Mucus 0 SEEN Urine Test Negative 01/26/23 21:50 WBC 14.9 H Corrected WBC RBC 4.52 Hgb 13.4 Hct 40.5 MCV 89.6 MCH 29.6 MCHC 33.1 RDW Std Deviation 41.5 RDW Coeff of Madonna 12.6 Plt Count 314 MPV 8.7 Immature Gran % (Auto) 0.300 Neut % (Auto) 52.7 Lymph % (Auto) 40.3 [place] % (Auto) 4.7 Eos % (Auto) 1.7 Baso % (Auto) 0.3 Absolute Neuts (auto) 7.9 H Absolute Lymphs (auto) 6.01 H Total Counted Neutrophils % (Manual) Band Neutrophils % Lymphocytes % (Manual) Monocytes % (Manual) Eosinophils % (Manual) Basophils % (Manual) Metamyelocytes % Myelocytes % Promyelocytes % Blast Cells % Plasma Cell % (Manual) Other Cells % Nucleated RBC % 0 Nucleated RBCs/100 WBC Differential Comment SCANNED Diff Path Review Hypersegmented Neuts Atypical Lymphocytes Reactive Lymphocytes Smudge Cells Toxic Granulation Toxic Vacuolation Dohle Bodies [place]ia Rods Platelet Estimate Plt Morphology Comment RBC Morphology Polychromasia Hypochromasia Poikilocytosis Basophilic Stippling Anisocytosis Microcytosis Macrocytosis Spherocytes Sickle Cells Target Cells Tear Drop Cells Ovalocytes Stomatocytes [place] Bodies [place] Cells Bite Cells Crenated Cell Acanthocytes (Spur) Rouleaux Schistocytes Sodium Potassium Chloride Carbon Dioxide Anion Gap BUN Creatinine Estim Creat Clear Calc Est GFR (MDRD) Af Amer Est GFR (MDRD) Non-Af BUN/Creatinine Ratio Glucose Calcium Total Bilirubin AST ALT Alkaline Phosphatase Total Protein Albumin Globulin Albumin/Globulin Ratio Lipase Urine Color Urine Clarity Urine pH Ur Specific [place] Urine Protein Urine Glucose (UA) Urine Ketones Urine Occult Blood Urine Nitrite Urine Bilirubin Urine Urobilinogen Ur Leukocyte Esterase Urine RBC Urine WBC Ur Squamous Epith Cells Urine Bacteria Urine Mucus Urine Test Radiography Diagnostic Testing: Clinical Impression(s) from Imaging Studies Gallbladder Ultrasound 01/26/23 22:45 IMPRESSION: Unremarkable right upper quadrant ultrasound. Electronically Signed: Umesh Franklin MD at 23:48 EST , Discharge Plan Triage Chief Complaint: Abd Pain ED Provider: Yolanda Dumont Dx/Rx/DC Orders Clinical Impression: Elevated WBCs, Epigastric abdominal pain Instructions: ED Gastritis Ulcer No Abx, ED Epigastric Pain Uncertain Cause Prescriptions: Continued pantoprazole 40 mg tablet,delayed release (DR/EC) 40 mg PO DAILY 14 Days Qty: 14 0RF No Action montelukast 10 mg tablet 10 mg PO DAILY Patient Comments: TAKE 1 TABLET BY MOUTH DAILY AT BEDTIME Nexplanon 68 mg implant 1 implant subdermal ONCE Rx Instructions: as a single dose buspirone 15 mg tablet 15 mg PO BID Patient Comments: TAKE 1 TABLET BY MOUTH TWICE DAILY venlafaxine 75 mg capsule,extended release 24hr 75 mg PO QHS Patient Comments: TAKE 1 CAPSULE BY MOUTH EVERY DAY IN THE MORNING lorazepam 0.5 mg tablet 0.5 mg PO Q8H PRN (Reason: anxiety) Patient Comments: TAKE 1 TABLET BY MOUTH THREE TIMES DAILY NEEDED FOR 90 DAYS trazodone 50 mg tablet 50 mg PO QHS PRN (Reason: insomnia) Patient Comments: TAKE 1 TO 2 TABLETS BY MOUTH AT BEDTIME NEEDED hydroxyzine HCl 25 mg tablet 25 mg PO Q8H PRN (Reason: anxiety) Patient Comments: Take 1 tablet by mouth three times daily as needed for anxiety. Primary Care Provider: Jennifer Dia Referrals: Umesh Jimenez MD [Med Staff - Active Staff] - As soon as possible Jennifer Dia MD [Primary Care Provider] - Activity Restrictions/Additional Instructions: Please avoid medication such as ibuprofen or Aleve as this can irritate the stomach. Only take Tylenol for pain. Try to adhere to a low acid diet. I suspect your pain is from inflammation/irritation of the stomach such as from peptic ulcer disease or acid reflux. Resume taking your antacids which you have been prescribed today. Follow-up with your primary care doctor as scheduled. Disposition Disposition: Home, Self Care Discharge Date/Time: 01/27/23 00:44
[2023-01-27] MEDS: Pantoprazole Sodium 40 MG in 0.9% Normal Saline (100mL MB+) 100 ML 330 MG IV (00:05)
[2023-01-27 00:41] VITALS: BP 138/68; PULSE 104; RESP 16; O2SAT 99
== END 2023-01-27 00:44 | disposition home or self-care (01) ==
PROVIDERS: Emergency Provider Emergency Medicine; PCP Internal Medicine; Visit Provider Emergency Medicine
DX: R10.13 Epigastric pain (principal); R11.2 Nausea with vomiting, unspecified; F17.200 Nicotine dependence, unspecified, uncomplicated; D72.829 Elevated white blood cell count, unspecified; J45.909 Unspecified asthma, uncomplicated; F41.9 Anxiety disorder, unspecified; Z79.899 Other long term (current) drug therapy
CPT/HCPCS: 76705; 80053; 81001; 81025; 83690; 85025; 96365; 99284; A4216

== ENCOUNTER 2023-05-05 10:40 | Emergency (ER) | payer MEDICAID, SELFPAY ==
[2023-05-05 10:41] VITALS: BP 171/115; PULSE 103; RESP 18; TEMP 36.2; O2SAT 100; BMI 36.6
--- NOTE | 2023-05-05 10:54 | US_ITS ---
STUDY: ABDOMINAL ULTRASOUND - RIGHT UPPER QUADRANT REASON FOR VISIT: Female, 32 years old RUQ pain TECHNIQUE: Ultrasound evaluation of the right upper quadrant was performed with real-time and static box-scale imaging. TECHNICAL QUALITY: Adequate. COMPARISON: Comparison is made with prior study dated January 26, 2023. FINDINGS: Liver: The liver is enlarged and measures 19 cm. There is normal echogenicity of the liver. The bile ducts are within normal limits. There is hepatic color flow. The direction of portal flow is hepatopetal. There is no demonstrated mass lesion. Gallbladder: Normal distended gallbladder. The gallbladder wall measures 1.9 mm. There is a negative sonographic Briggs''s sign. There is no pericholecystic fluid. There are no gallstones. Common Bile Duct (C.B.D.): The common bile duct measures 4.2 mm. Pancreas: Normal size of the head, body and tail of the pancreas. There is normal echogenicity of the pancreas. There is no demonstrated pancreatic mass or cyst. Right Kidney: Normal size of the right kidney. The right kidney measures 12.7 cm x 4.7 cm x 5.6 cm. Normal renal cortex. The right cortex measures 2.0 cm. There is no demonstrated renal mass or cyst. There is mild hydronephrosis of the right kidney. US/Gallbladder IMPRESSION: Mild hepatomegaly. Mild degree of right hydronephrosis. Electronically Signed: Ministerio Bhatia MD at 12:06 EST ,
--- NOTE | 2023-05-05 10:55 | EDS_ITS ---
HPI History of Present Illness Chief Complaint: Abd Pain Informant: patient Onset/Context/Timing Onset: - (Acute on chronic) Narrative Narrative: Patient presents secondary to acute on chronic epigastric pain. She is been having epigastric pain for several months. She is currently on Protonix daily. She has been seen by Dr. Jimenez and is scheduled to have an EGD the end of May. Patient states her pain seemed to worsen suddenly last evening. She has had nausea but no vomiting. PFSH PFSH Medical History Asthma COVID-19 Urinary tract infection with hematuria Home Medications etonogestrel 68 mg subdermal implant (Nexplanon) 1 implant subdermal ONCE 07/20/21 [History Last Taken Unknown] pantoprazole 40 mg tablet,delayed release 40 mg PO DAILY #30 tabs 04/14/23 [Rx Last Taken Unknown] dicyclomine 20 mg tablet 20 mg PO BID PRN abdominal pain #20 tabs 05/05/23 [Rx Last Taken Unknown] potassium chloride 20 mEq tablet,extended release 20 meq PO BID #7 tabs 05/05/23 [Rx Last Taken Unknown] sucralfate 1 gram tablet (Carafate) 1 g PO BID #30 tabs 05/05/23 [Rx Last Taken Unknown] Allergy/AdvReac Type Severity Reaction Status Date / Time No Known Drug Allergies Allergy Other Verified 05/05/23 10:42 Surgical History History of History of carpal tunnel surgery Social History Smoking Status: Heavy Smoker (>10/day) alcohol intake: never ROS ROS ED Constitutional Constitutional ED: Denies chills or fever(s) Eyes Eyes: Denies change in vision ENT ENT ED: Denies rhinorrhea or sore throat Cardiovascular Cardiovascular: Denies chest pain or palpitations Respiratory/Chest Respiratory/Chest: Denies cough or dyspnea Gastrointestinal Gastrointestinal: Reports abdominal pain and nausea; Denies diarrhea or vomiting Genitourinary Genitourinary ED: Denies dysuria Musculoskeletal Musculoskeletal: Denies back pain or extremity pain Integumentary Denies Abrasions or rash Neurologic Neurologic: Denies headache(s) or weakness Psychiatric Psychiatric: Denies anxiety or depression Allergic/Immunologic Allergic/Immunologic ED: Denies lip swelling or urticaria EXAM Physical Exam Const Vital Signs: 05/05/23 10:41 05/05/23 12:41 Temperature 97.2 F L Temperature Source Temporal Pulse Rate 103 H 87 Respiratory Rate 18 16 Blood Pressure 171/115 H 125/78 H Blood Pressure Mean 133 93 Pulse Ox 100 100 Oxygen Delivery Method Room Air Room Air Positive well nourished and well developed General Appearance ED: well developed HEENT Reports moist mucous membranes Chest Wall inspection of chest normal and palpation of chest normal Resp normal respiratory effort and clear to auscultation bilaterally Cardio regular rate and regular rhythm GI GI Narrative: Abdomen soft with tenderness of both the right and left upper quadrants. No guarding or rebound. No palpable masses. Hypoactive bowel sounds noted. Extremity normal to inspection Neuro oriented x3 and no sensory deficits noted Motor Exam: strength 5/5 throughout Psych mental status grossly normal Skin no rashes or lesions noted MDM MDM MDM Narrative Medical decision making narrative: IV line established. Patient given morphine and Zofran for pain and nausea. IV fluids given. Labwork obtained to evaluate for leukocytosis, anemia, and electrolyte derangement. Right upper quadrant ultrasound will be obtained to evaluate for potential gallstones. Differential diagnosis includes hiatal hernia, gastritis, ulcer, cholecystitis, pancreatitis. History & Record Review Discussion w/independent historian: Patient Additional record(s) reviewed:: Prior labs Lab Data Attestation: I reviewed the patient's lab results. Labs: Laboratory Results - last 24 hr 05/05/23 05/05/23 11:03 13:19 WBC 9.8 RBC 4.64 Hgb 13.4 Hct 40.8 MCV 87.9 MCH 28.9 MCHC 32.8 RDW Std Deviation 40.5 RDW Coeff of [place] 12.8 Plt Count 320 MPV 8.7 Immature Gran % (Auto) 0.400 Neut % (Auto) 54.2 Lymph % (Auto) 34.7 [place] % (Auto) 8.2 Eos % (Auto) 2.2 Baso % (Auto) 0.3 Absolute Neuts (auto) 5.3 Absolute Lymphs (auto) 3.40 Nucleated RBC % 0 Sodium 138 Potassium 3.0 L Chloride 109 H Carbon Dioxide 25.0 Anion Gap 4 L BUN 9 Creatinine 0.80 Estim Creat Clear Calc 102.62 Est GFR (MDRD) Af Amer 106 Est GFR (MDRD) Non-Af 88 BUN/Creatinine Ratio 11.2 Glucose 110 H Calcium 9.3 Total Bilirubin 0.60 Direct Bilirubin 0.12 AST 15 ALT 19 Alkaline Phosphatase 79 Total Protein 7.5 Albumin 3.9 Globulin 3.6 Lipase 51 Serum , Qual NEGATIVE Urine Color Straw Urine Clarity Clear Urine pH 6.0 Ur Specific [place] 1.015 Urine Protein Negative Urine Glucose (UA) Normal Urine Ketones Negative Urine Occult Blood 10 H Urine Nitrite Negative Urine Bilirubin Negative Urine Urobilinogen Normal Ur Leukocyte Esterase Negative Urine RBC 0 SEEN Urine WBC 0 SEEN Ur Squamous Epith Cells 0-5 SEEN Urine Bacteria 0 SEEN Urine Mucus 0 SEEN Radiography Diagnostic Testing: Clinical Impression(s) from Imaging Studies Gallbladder Ultrasound 05/05/23 10:54 IMPRESSION: Mild hepatomegaly. Mild degree of right hydronephrosis. Electronically Signed: Ministerio Bhatia MD at 12:06 EST , Abdomen/Pelvis CT 05/05/23 12:27 IMPRESSION: 3.3 cm x 2.8 cm complex cyst in the right ovary. No obstructive uropathy is seen. Electronically Signed: Ministerio Bhatia MD at 12:51 EST , Treatment and Re-Evaluation :: CBC was a white count of 9.8 with no left shift. Hemoglobin normal at 13.4. Chemistry studies significant for potassium of 3.0. Renal function unremarkable . Glucose is 110. LFTs and lipase are normal. test negative. Right upper quadrant ultrasound is obtained that shows mild degree of right hydronephrosis and mild hepatosplenomegaly. No acute gallbladder abnormalities noted. With evidence of hydronephrosis CT flank is obtained along with a urinalysis to evaluate for potential pyelonephritis, infection, renal stone. CT scan of the abdomen pelvis reveals a 3 x 3 x 2.8 cm complex cyst on the right ovary. No obstructive uropathy is noted. Urinalysis reveals no evidence of acute infection. Test results discussed with patient. She will continue her Protonix. I will write her Bentyl and Carafate as well. I will also write her a few days of potassium replacement. She will call the surgery office to see if there is a cancellation list she can be added to to try to get her scope completed sooner. Return instructions are given. Discharge Plan Triage Chief Complaint: Abd Pain ED Provider: Toña Horton Dx/Rx/DC Orders Clinical Impression: Epigastric pain, Hypokalemia Instructions: ED Hypokalemia, ED Epigastric Pain Uncertain Cause Prescriptions: New dicyclomine 20 mg tablet 20 mg PO BID PRN (Reason: abdominal pain) Qty: 20 0RF potassium chloride 20 mEq tablet extended release 20 meq PO BID Qty: 7 0RF sucralfate [Carafate] 1 gram tablet 1 g PO BID Qty: 30 0RF No Action Nexplanon 68 mg implant 1 implant subdermal ONCE Rx Instructions: as a single dose pantoprazole 40 mg tablet,delayed release (DR/EC) 40 mg PO DAILY Qty: 30 2RF Stand Alone Forms: ED Work / School Excuse Primary Care Provider: Jennifer Dia Referrals: Umesh Jimenez MD [Med Staff - Active Staff] - Keep Harry appointment Jennifer Dia MD [Primary Care Provider] - Activity Restrictions/Additional Instructions: As discussed, call the surgery office to see if you can be added to a cancellation list to try to have your scope completed sooner. Disposition Disposition: Home, Self Care
[2023-05-05] MEDS: Morphine 4 MG/ML Syringe IV ×2 (11:02→13:22)
[2023-05-05] MEDS: Ondansetron 4 MG/2 ML Vial IV (11:02)
[2023-05-05 11:13] LABS: Absolute Neutrophil Count 5.3 X10^3/uL (2.0-7.7); Basophil# 0.03 X10^3/uL; Basophil% 0.3 % (0-1); Eosinophil# 0.22 X10^3/uL; Eosinophils% 2.2 % (0-5); Hematocrit 40.8 % (37-47); Hemoglobin 13.4 g/dL (12.0-15.0); Lymphocyte % 34.7 % (19-41); Mean Corp Hgb Conc 32.8 g/dL (32-36); Mean Corpuscular Hgb 28.9 pg (27.0-32.0); Mean Corpuscular Volume 87.9 fL (81-99); Mean Platelet Vol. 8.7 fl (6.2-12.0); Monocyte% 8.2 % (0-10); NRBC Flagged by Analyzer 0 % (0-5); Neutrophil # 5.32 X10^3/uL (2.7-7.7); Neutrophil % 54.2 % (47-70); Platelet Count 320 K/mm3 (150-450); RBC Distribution Width CV 12.8 % (11.6-14.6); RBC Distribution Width SD 40.5 fl (35.1-43.9); Red Blood Count 4.64 M/mm3 (4.2-5.4); White Blood Count 9.8 K/mm3 (4.4-11.0)
[2023-05-05] MEDS: 0.9% Normal Saline (1000mL) 1,000 ML 150 ML IV (11:15)
[2023-05-05 11:33] LABS: AST(SGOT) 15 U/L (15-37); Alanine Aminotransfer ALT/SGPT 19 U/L (13-56); Albumin, Serum 3.9 g/dL (3.2-5.0); Alkaline Phosphatase 79 U/L (45-117); Anion Gap 4 (5-15); BUN 9 mg/dL (7-18); BUN/Creat Ratio 11.2 RATIO (10-20); Bilirubin, Direct 0.12 mg/dL (0.00-0.30); Calcium,Total 9.3 mg/dL (8.5-10.1); Chloride 109 mmol/L (98-107); EST Glomerular Filtration Rate 88 mL/min (>60); Est Glom Filt Rate - Afr Amer 106 mL/min (>60); Estimated Creatinine Clearance 102.62 ml/min; Globulin 3.6 g/dL (2.2-4.2); Glucose 110 mg/dL (74-106); Lipase 51 U/L (13-75); Protein, Total 7.5 g/dL (6.4-8.2); Sodium Level 138 mmol/L (136-145)
[2023-05-05 11:41] LABS: Internal QC Validated? YES +Cl - CLEAR BKGD
[2023-05-05 11:42] LABS: Record Kit Lot#, Serum Preg. HCG0000718086
[2023-05-05 11:44] LABS: Pregnancy, Serum, hCG Quali. NEGATIVE Negative
--- OUTSIDE RECORDS SUMMARY | 2023-05-05 11:52 | XMS RPT_ITS | CCD ---
Author Name Unknown Address [id number] [place] [address] Organization [facility] Care Team Providers Care Efficiency Expert Name Role Phone Mikael Benítez V Unavailable Unavailable Mikael Benítez V Unavailable Unavailable No Doctor Assigned, Nodr Unavailable Unavail able Required, No Pcp Unavailable Unavailable Wan Hawthorne Unavailable Jennifer Almanza MD Primary Care Provider [phone] Jennifer Almanza MD Primary Care Provider [phone] None, No PCP Unavailable Unavailable Jennifer Almanza MD Primary Care Provider [phone] Jennifer Almanza Unavailable Song Lopez Unavailable Unavailable Song Lopez Attending Unavailable Dr. Jennifer Almanza Primary Care Unavaila ble LINUSTA, JENNIFER VANNESA Primary Care Unavailable SONG LOPEZ Attending Unavailable CECILY CHASE Attending Unavailable GANTA, JENNIFER Primary Care Unavailable GANTA, JENNIFER Primary Care Unavailable ANTONETTE ROWELL Referring Unavailable GANTA, JENNIFER Primary Care Unavailable KRUPA MUSA Attending Unavailable GANTA, JENNIFER Primary Care Unavailable GANTA, JENNIFER Primary Care Unavailable GANTA, JENNIFER Primary Care Unavailable GANTA, JENNIFER Attending Unavailable FEDE HANLEY Referring Unavailable GANTA, JENNIFER Primary Care Unavailable FEDE HANLEY Attending Unavailable GANTA, JENNIFER Primary Care Unavailable GANTA, JENNIFER Primary Care Unavailable GANTA, JENNIFER Attending Unavailable GANTA, JENNIFER Primary Care Unavailable GANTA, JENNIFER Attending Unavailable GANTA, JENNIFER Primary Care Unavailable GANTA, JENNIFER Attending Unavailable GANTA, JENNIFER Primary Care Unavailable GANTA, JENNIEFR Primary Care Unavailable Allergies Allergy Classification Reported Allergen(s) Allergy Type Date of Onset Reaction(s) Facility (1 source) No Known Medication Allergies; Translations: [No Known Medication Allergies] Propensity to adverse reactions to drug (disorder) [facility] Repository Medications Current Medications Medication Drug Class(es) Dates Sig (Normalized) Sig (Original) etonogestrel 68 mg drug implant (20 sources) Progestin Start: 08-05-2020 End: 08-05-2023 etonogestrel (NEXPLANON) subdermal implant 68 mg Indications: Insertion of implantable subdermal contraceptive 1 Each by SUBDERMAL route as directed. 1 Each 0 08/05/2020 08/05/2023 Active Completed/Discontinued Medications Medication Drug Class(es) Dates Sig (Normalized) Sig (Original) [id number] 200 actuat albuterol 0.09 mg/actuat metered dose inhaler (20 sources) beta2-Adrenergic Agonist Start: 09-02-2021 End: 12-11-2021 take 2 puff(s) by inhalation every four hours as needed for wheezing albuterol HFA (VENTOLIN HFA) 90 mcg/actuation inhaler Indications: Cough , Shortness of breath Inhale 2 Puffs as instructed every 4 hours as needed for wheezing/shortnes s of breath. 1 Each 2 11/11/2021 Active Problems Active Problems Problem Classification Problem Date Documented Da te Episodic/Chronic Abdominal pain (1 source) Pain in female pelvis; Translations: [Pelvic and perineal pain] Episodic Anxiety disorders (20 sources) Mixed anxiety and depressive disorder; Translations: [Anxiety disorder, unspecified] Onset: 2 Chronic Asthma (1 source) Mild intermittent asthma; Translations: [Mild intermittent asthma, uncomplicated] 11-29-2022 Chronic Genitourinary symptoms and ill-defined conditions (6 sources) Dysuria; Translations: [Frequency of micturition] Onset: 3 Episodic Mood disorders (1 source) Mood disorders; Translations: [Anxiety and depression] Onset: 2 Other circulatory disease (1 source) Elevated blood-pressure reading without diagnosis of hypertension; Translations: [Elevated blood-pressure reading, without diagnosis of hypertension] Episodic Other circulatory disease (1 source) Wheeze - rhonchi; Translations: [Other specified symptoms and signs involving the circulatory and respiratory systems] 11-29-2022 Episodic Other female genital disorders (1 source) Deep pain on intercourse; Translations: [Deep dyspareunia] Chronic Other female genital disorders (1 source) Abnormal uterine bleeding; Translations: [Abnormal uterine and vaginal bleeding, unspecified] Chronic Other gastrointestinal disorders (1 source) Dysphagia; Translations: [Dysphagia, unspecified] Episodic Other lower respiratory disease (5 sources) Cough; Translations: [Cough] Episodic Other lower respiratory disease (4 sources) Dyspnea; Translations: [Shortness of breath] Episodic Other nervous system disorders (20 sources) Carpal tunnel syndrome of right wrist; Translations: [Carpal tunnel syndrome, right upper limb] Onset: 7 09-16-2016 Chronic Other nutritional; endocrine; and metabolic disorders (20 sources) Body mass index 40+ - severely obese; Translations: [Morbid (severe) obesity due to excess calories] Onset: 4 03-09-2021 Chronic Other nutritional; endocrine; and metabolic disorders (2 sources) Severe obesity; Translations: [Morbid (severe) obesity due to excess calories] Chronic Other nutritional; endocrine; and metabolic disorders (3 sources) Body mass index 30+ - obesity; Translations: [Obesity, unspecified] Chronic Other screening for suspected conditions (not mental disorders or infectious disease) (1 source) Cancer cervix screening status; Translations: [Encounter for screening for malignant neoplasm of cervix] Episodic Other upper respiratory infections (2 sources) Sore throat symptom; Translations: [Acute pharyngitis, unspecified] Episodic Sexually transmitted infections (not HIV or hepatitis) (2 sources) Human papilloma virus deoxyribonucleic acid test positive, high risk on vaginal specimen; Translations: [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] Episodic Unclassified (2 sources) PAINFUL URINATION 08-10-2022 Past or Other Problems Problem Classification Problem Date Documented Da te Episodic/Chronic Immunizations and screening for infectious disease (6 sources) Patient encounter status; Translations: [Encounter for immunization] Onset: 07-12-2022 Episodic Other circulatory disease (1 source) Elevated blood-pressure reading, without diagnosis of hypertension; Translations: [Elevated BP without diagnosis of hypertension] Onset: 06-23-2022 Episodic Other gastrointestinal disorders (1 source) Dysphagia, unspecified; Translations: [Dysphagia, unspecified type] Onset: 06-26-2022 Episodic Other non-traumatic joint disorders (20 sources) Pain in right knee; Translations: [Pain in joint, lower leg] Onset: 01-31-2015 01-31-2015 Episodic Spondylosis; intervertebral disc disorders; other back problems (20 sources) Chronic low back pain; Translations: [Lumbago with sciatica, right side] Onset: 11-11-2015 11-11-2015 Episodic Results Test Name Value Interpretation Reference Range Facil ity Vital Signs Date Time Vital Sign Value Performing Clinician Santos de luna 02-24-2023 10:11-0500 Diastolic blood pressure 83 mm[Hg] Cecily Chase DRAG SEINER.PATIENT INTAKE COORDINATOR Work Phone: [facility] 02-24-2023 10:11-0500 Heart rate 108 /min Cecily Chase DRAG SEINER.PATIENT INTAKE COORDINATOR Work Phone: [facility] 02-24-2023 10:11-0500 Systolic blood pressure 126 mm[Hg] Cecily Chase DRAG SEINER.PATIENT INTAKE COORDINATOR Work Phone: [facility] 02-24-2023 10:10-0500 Body weight 82.1 kg Cecily Chase DRAG SEINER.PATIENT INTAKE COORDINATOR Work Phone: [facility] 02-24-2023 10:10-0500 Respiratory rate 16 /min Cecily Chase DRAG SEINER.PATIENT INTAKE COORDINATOR Work Phone: [facility] 11-29-2022 14:49-0400 Body temperature 98.49 [degF] Antonette Sorin DRAG SEINER.HOT STAMP OPERATOR Work Phone: [facility] 11-29-2022 14:49-0400 Body weight 82.19 kg Antonette Sorin DRAG SEINER.HOT STAMP OPERATOR Work Phone: [facility] 11-29-2022 14:49-0400 Diastolic blood pressure 89 mm[Hg] Antonette Sorin DRAG SEINER.HOT STAMP OPERATOR Work Phone: [facility] 11-29-2022 14:49-0400 Heart rate 124 /min Antonette Sorin DRAG SEINER.HOT STAMP OPERATOR Work Phone: [facility] 11-29-2022 14:49-0400 Respiratory rate 18 /min Antonette Sorin DRAG SEINER.HOT STAMP OPERATOR Work Phone: [facility] 11-29-2022 14:49-0400 SaO2% (BldA) [Mass fraction] 98 % Antonette Rowell DRAG SEINER.HOT STAMP OPERATOR Work Phone: [facility] 11-29-2022 14:49-0400 Systolic blood pressure 136 mm[Hg] Antonette Rowell DRAG SEINER.HOT STAMP OPERATOR Work Phone: [facility] 11-12-2022 10:58-0400 Body weight 79.38 kg Krupa Older DRAG SEINER.HOT STAMP OPERATOR Work Phone: [facility] 11-12-2022 10:58-0400 Diastolic blood pressure 78 mm[Hg] DRAG SEINER.HOT STAMP OPERATOR Work Phone: [facility] 11-12-2022 10:58-0400 Heart rate 108 /min Krupa Older DRAG SEINER.HOT STAMP OPERATOR Work Phone: [facility] 11-12-2022 10:58-0400 Respiratory rate 16 /min Krupa Older DRAG SEINER.HOT STAMP OPERATOR Work Phone: [facility] 11-12-2022 10:58-0400 SaO2% (BldA) [Mass fraction] 98 % Krupa DRAG SEINER.HOT STAMP OPERATOR Work Phone: [facility] 11-12-2022 10:58-0400 Systolic blood pressure 122 mm[Hg] DRAG SEINER.HOT STAMP OPERATOR Work Phone: [facility] 08-10-2022 12:03-0400 Body height 154.9 cm Jennifer Ganta Other Phone: [facility] 08-10-2022 12:03-0400 Body temperature 98.6 [degF] Jennifer Ganta Other Phone: [facility] 08-10-2022 12:03-0400 Diastolic blood pressure 109 mm[Hg] Jennifer Ganta Other Phone: [facility] 08-10-2022 12:03-0400 Heart rate 109 /min Jennifer Ganta Other Phone: [facility] 08-10-2022 12:03-0400 Respiratory rate 16 /min Jennifer Almanza Other Phone: [facility] 08-10-2022 12:03-0400 SaO2% (BldA) [Mass fraction] 99 % Jennifer Almanza Other Phone: [facility] 08-10-2022 12:03-0400 Systolic blood pressure 155 mm[Hg] Jennifer Almanza Other Phone: [facility] 07-12-2022 11:46-0400 Body height 154.9 cm Jennifer Almanza MD Work Phone: [facility] 07-12-2022 11:46-0400 Body temperature 98.49 [degF] Jennifer Almanza MD Work Phone: [facility] 07-12-2022 11:46-0400 Body weight 77.11 kg Jennifer Almanza MD Work Phone: [facility] 07-12-2022 11:46-0400 Diastolic blood pressure 72 mm[Hg] Jennifer Almanza MD Work Phone: [facility] 07-12-2022 11:46-0400 Heart rate 102 /min Jennifer Almanza MD Work Phone: [facility] 07-12-2022 11:46-0400 Respiratory rate 12 /min Jennifer Almanza MD Work Phone: [facility] 07-12-2022 11:46-0400 SaO2% (BldA) [Mass fraction] 97 % Jennifer Almanza MD Work Phone: [facility] 07-12-2022 11:46-0400 Systolic blood pressure 120 mm[Hg] Jennifer Almanza MD Work Phone: [facility] 06-23-2022 18:48-0400 Body height 154.9 cm Fede Hanley APRN.CNP Work Phone: [facility] 06-23-2022 18:48-0400 Body weight 79.83 kg Fede Hanley DRAG SEINER.HOT STAMP OPERATOR Work Phone: [facility] 06-23-2022 18:48-0400 Diastolic blood pressure 88 mm[Hg] Fede Hanley DRAG SEINER.HOT STAMP OPERATOR Work Phone: [facility] 06-23-2022 18:48-0400 Heart rate 95 /min Fede Hanley DRAG SEINER.HOT STAMP OPERATOR Work Phone: [facility] 06-23-2022 18:48-0400 SaO2% (BldA) [Mass fraction] 99 % Fede Hanley DRAG SEINER.HOT STAMP OPERATOR Work Phone: [facility] 06-23-2022 18:48-0400 Systolic blood pressure 138 mm[Hg] Fede Hanley DRAG SEINER.HOT STAMP OPERATOR Work Phone: [facility] 06-09-2022 19:40-0400 Body temperature 97.59 [degF] Deborah Praisler-Wood DRAG SEINER.HOT STAMP OPERATOR Work Phone: [facility] 06-09-2022 19:40-0400 Body weight 81.1 kg Deborah Praisler-Wood DRAG SEINER.HOT STAMP OPERATOR Work Phone: [facility] 06-09-2022 19:40-0400 Diastolic blood pressure 90 mm[Hg] Deborah Praisler-Wood DRAG SEINER.HOT STAMP OPERATOR Work Phone: [facility] 06-09-2022 19:40-0400 Heart rate 122 /min Deborah Praisler-Wood DRAG SEINER.HOT STAMP OPERATOR Work Phone: [facility] 06-09-2022 19:40-0400 Respiratory rate 21 /min Deborah Praisler-Wood DRAG SEINER.HOT STAMP OPERATOR Work Phone: [facility] 06-09-2022 19:40-0400 SaO2% (BldA) [Mass fraction] 99 % Deborah Praisler-Wood DRAG SEINER.HOT STAMP OPERATOR Work Phone: [facility] 06-09-2022 19:40-0400 Systolic blood pressure 148 mm[Hg] Deborah Praisler-Wood DRAG SEINER.HOT STAMP OPERATOR Work Phone: [facility] 04-12-2022 11:42-0500 Body height 154.9 cm Jennifer Almanza MD Work Phone: [facility] 04-12-2022 11:42-0500 Body temperature 98.2 [degF] Jennifer Almanza MD Work Phone: [facility] 04-12-2022 11:42-0500 Body weight 83.92 kg Jennifer Almanza MD Work Phone: [facility] 04-12-2022 11:42-0500 Diastolic blood pressure 76 mm[Hg] Jennifer Almanza MD Work Phone: [facility] 04-12-2022 11:42-0500 Heart rate 92 /min Jennifer Almanza MD Work Phone: [facility] 04-12-2022 11:42-0500 Respiratory rate 12 /min Jennifer Almanza MD Work Phone: [facility] 04-12-2022 11:42-0500 SaO2% (BldA) [Mass fraction] 100 % Jennifer Almanza MD Work Phone: [facility] 04-12-2022 11:42-0500 Systolic blood pressure 130 mm[Hg] Jennifer Almanza MD Work Phone: [facility] 03-30-2022 08:46-0500 Body weight 84.82 kg Amy Yarbrough MD Work Phone: [facility] 03-30-2022 08:46-0500 Diastolic blood pressure 78 mm[Hg] Amy Yarbrough MD Work Phone: [facility] 03-30-2022 08:46-0500 Systolic blood pressure 118 mm[Hg] Amy Yarbrough MD Work Phone: [facility] 03-18-2022 11:39-0500 Body weight 84.82 kg Amy Yarbrough MD Work Phone: [facility] 03-18-2022 11:39-0500 Diastolic blood pressure 80 mm[Hg] Amy Yarbrough MD Work Phone: [facility] 03-18-2022 11:39-0500 Systolic blood pressure 120 mm[Hg] Amy Yarbrough MD Work Phone: [facility] 03-11-2022 11:42-0500 Body weight 81.65 kg Krupa Older DRAG SEINER.HOT STAMP OPERATOR Work Phone: [facility] 03-11-2022 11:42-0500 Diastolic blood pressure 80 mm[Hg] Krupa Older DRAG SEINER.HOT STAMP OPERATOR Work Phone: [facility] 03-11-2022 11:42-0500 Heart rate 92 /min Krupa Older DRAG SEINER.HOT STAMP OPERATOR Work Phone: [facility] 03-11-2022 11:42-0500 Respiratory rate 16 /min Krupa Older DRAG SEINER.HOT STAMP OPERATOR Work Phone: [facility] 03-11-2022 11:42-0500 Systolic blood pressure 122 mm[Hg] Krupa Older DRAG SEINER.HOT STAMP OPERATOR Work Phone: [facility] 02-09-2022 10:41-0500 Body height 154.9 cm Jennifer Almanza MD Work Phone: [facility] 02-09-2022 10:41-0500 Body temperature 98.2 [degF] Jennifer Almanza MD Work Phone: [facility] 02-09-2022 10:41-0500 Body weight 84.82 kg Jennifer Almanza MD Work Phone: [facility] 02-09-2022 10:41-0500 Diastolic blood pressure 62 mm[Hg] Jennifer Almanza MD Work Phone: [facility] 02-09-2022 10:41-0500 Heart rate 101 /min Jennifer Almanza MD Work Phone: [facility] 02-09-2022 10:41-0500 Respiratory rate 12 /min Jennifer Almanza MD Work Phone: [facility] 02-09-2022 10:41-0500 SaO2% (BldA) [Mass fraction] 99 % Jennifer Almanza MD Work Phone: [facility] 02-09-2022 10:41-0500 Systolic blood pressure 124 mm[Hg] Jennifer Almanza MD Work Phone: [facility] 12-24-2021 18:59-0400 Body temperature 98.49 [degF] Arline Breen DRAG SEINER.HOT STAMP OPERATOR Work Phone: [facility] 12-24-2021 18:59-0400 Body weight 84.91 kg Arline Breen DRAG SEINER.HOT STAMP OPERATOR Work Phone: [facility] 12-24-2021 18:59-0400 Diastolic blood pressure 78 mm[Hg] Arline Breen DRAG SEINER.HOT STAMP OPERATOR Work Phone: [facility] 12-24-2021 18:59-0400 Heart rate 104 /min Arline Breen DRAG SEINER.HOT STAMP OPERATOR Work Phone: [facility] 12-24-2021 18:59-0400 Respiratory rate 18 /min Arline Breen DRAG SEINER.HOT STAMP OPERATOR Work Phone: [facility] 12-24-2021 18:59-0400 SaO2% (BldA) [Mass fraction] 98 % Arline Breen DRAG SEINER.HOT STAMP OPERATOR Work Phone: [facility] 12-24-2021 18:59-0400 Systolic blood pressure 122 mm[Hg] Arline Breen DRAG SEINER.HOT STAMP OPERATOR Work Phone: [facility] 09-07-2021 14:19-0400 Body weight 82.1 kg Cecily Chase DRAG SEINER.PATIENT INTAKE COORDINATOR Work Phone: [facility] 09-07-2021 14:19-0400 Diastolic blood pressure 74 mm[Hg] Cecily Chase DRAG SEINER.PATIENT INTAKE COORDINATOR Work Phone: [facility] 09-07-2021 14:19-0400 Heart rate 92 /min Cecily Chase DRAG SEINER.PATIENT INTAKE COORDINATOR Work Phone: [facility] 09-07-2021 14:19-0400 Respiratory rate 16 /min Cecily Chase DRAG SEINER.PATIENT INTAKE COORDINATOR Work Phone: [facility] 09-07-2021 14:19-0400 Systolic blood pressure 120 mm[Hg] Cecily Chase DRAG SEINER.PATIENT INTAKE COORDINATOR Work Phone: [facility] 08-21-2021 09:48-0400 Body height 154.9 cm Respiratory Wstr Work Phone: [facility] 08-21-2021 09:48-0400 Body weight 82.64 kg Respiratory Wstr Work Phone: [facility] 06-09-2021 13:55-0400 Body temperature 98.1 [degF] Cecily Chase DRAG SEINER.PATIENT INTAKE COORDINATOR Work Phone: [facility] 06-09-2021 13:55-0400 Body weight 78.93 kg Cecily Chase DRAG SEINER.PATIENT INTAKE COORDINATOR Work Phone: [facility] 06-09-2021 13:55-0400 Diastolic blood pressure 82 mm[Hg] Cecily Chase DRAG SEINER.PATIENT INTAKE COORDINATOR Work Phone: [facility] 06-09-2021 13:55-0400 Heart rate 97 /min Cecily Chase DRAG SEINER.PATIENT INTAKE COORDINATOR Work Phone: [facility] 06-09-2021 13:55-0400 SaO2% (BldA) [Mass fraction] 100 % Cecily Chase DRAG SEINER.PATIENT INTAKE COORDINATOR Work Phone: [facility] 06-09-2021 13:55-0400 Systolic blood pressure 124 mm[Hg] Cecily Chase DRAG SEINER.PATIENT INTAKE COORDINATOR Work Phone: [facility] 03-23-2021 01:10-0500 Body height 152.4 cm No Pcp Required [facility] 03-23-2021 01:10-0500 Body temperature 98.06 [degF] No Pcp Required [facility] 03-23-2021 01:10-0500 Body weight 76 kg No Pcp Required [facility] 03-23-2021 01:10-0500 Diastolic blood pressure 118 mm[Hg] No Pcp Required [facility] 03-23-2021 01:10-0500 Heart rate 87 /min No Pcp Required [facility] 03-23-2021 01:10-0500 Respiratory rate 18 /min No Pcp Required [facility] 03-23-2021 01:10-0500 SaO2% (BldA) [Mass fraction] 100 % No Pcp Required [facility] 03-23-2021 01:10-0500 Systolic blood pressure 160 mm[Hg] No Pcp Required [facility] Encounters Encounter Date Encounter Type Care Provider Facility Start: 04-05-2023 End: 04-05-2023 ambulatory JENNIFER ALMANZA Facility:[facility] Start: 02-24-2023 End: 02-24-2023 ambulatory [facility] Facility:[facility] Start: 02-24-2023 End: 02-24-2023 Office outpatient visit 15 minutes [facility] DRAG SEINER.PATIENT INTAKE COORDINATOR Work Phone: [facility] Procedures Date Procedure Procedure Detail Performing Clinician Start: 12-29-2022 Bacteria identified in Urine by Culture JENNIFER ALMANZA Start: 12-29-2022 POCT UA AUTOMATED MA NUVIA RESULTED JENNIFER ALMANZA Start: 11-29-2022 Radiologic exam ches t 2 views Antonette Rowell DRAG SEINER.HOT STAMP OPERATOR Work Phone: Start: 06-09-2022 STREP A MOLECULAR (POC) Deborah Tobar DRAG SEINER.HOT STAMP OPERATOR Work Phone: Start: 03-30-2022 Urine test visual color cmprsn meths Amy Yarbrough MD Work Phone: Start: 03-18-2022 BACTERIAL VAGINOSIS AMPLIFICATION Amy Yarbrough MD Work Phone: Start: 03-18-2022 Iadna chlamydia trac homatis amplified probe tq Amy Yarbrough MD Work Phone: Start: 09-01-2021 Adult depression scr eening assessment Jennifer Almanza MD Work Phone: Start: 08-21-2021 Nitric oxide gas determination Kimberly Hughes MD Work Phone: Start: 08-21-2021 Brncdilat rspse spmt ry pre&post-brncdilat admn Cecily Chase DRAG SEINER.PATIENT INTAKE COORDINATOR Work Phone: Start: 06-09-2021 Adult depression scr eening assessment Cecliy Chase DRAG SEINER.PATIENT INTAKE COORDINATOR Work Phone: Start: 03-23-2021 End: 03-23-2021 EKG impression Wan W Christoph Plan of Treatment Date Care Activity Detail Author Start: 03-30-2029 Urine microalbumin profile [facility] Start: 03-18-2027 HPV TESTING HPV TESTING [facility] Start: 03-18-2027 PAP TESTING PAP TESTING [facility] Start: 03-18-2027 Screening for malign ant neoplasm of cervix [facility] Start: 11-17-2023 PAP TESTING PAP TESTING [facility] Start: 11-13-2023 Annual PCP Team Psychologists isac Disease Visit Annual PCP Team Chronic Disease Visit [facility] Start: 06-24-2023 COVID-19 VACCINE (3 - Booster for Moderna series) COVID-19 VACCINE (3 - Booster for Moderna series) [facility] Immunizations Immunization Date Immunization Notes Care Provider Brian landers 07-12-2022 Human Papillomavirus 9-valent vaccine Jennifer Almanza MD Work Phone: [facility] Work Phone: 03-30-2022 Human Papillomavirus 9-valent vaccine Amy Yarbrough MD Work Phone: [facility] 04-29-2021 influenza, seasonal, injectable, preservative free Cecily Chase DRAG SEINER.PATIENT INTAKE COORDINATOR Work Phone: [facility] Work Phone: 04-29-2021 influenza virus vacc ine, unspecified formulation Antonette Rowell DRAG SEINER.HOT STAMP OPERATOR Work Phone: [facility] 12-31-2019 influenza, seasonal, injectable, preservative free Cecily Chase DRAG SEINER.PATIENT INTAKE COORDINATOR Work Phone: [facility] Work Phone: 03-30-2019 tetanus toxoid, redu ray diphtheria toxoid, and acellular pertussis vaccine, adsorbed Cecily Chase DRAG SEINER.PATIENT INTAKE COORDINATOR Work Phone: [facility] 01-02-2019 influenza, seasonal, injectable, preservative free Cecily Chase DRAG SEINER.PATIENT INTAKE COORDINATOR Work Phone: [facility] Work Phone: 12-09-2017 influenza, seasonal, injectable, preservative free Cecily Chase DRAG SEINER.PATIENT INTAKE COORDINATOR Work Phone: [facility] Work Phone: 12-27-2016 influenza, seasonal, injectable, preservative free Cecily Chase DRAG SEINER.PATIENT INTAKE COORDINATOR Work Phone: [facility] Work Phone: 01-07-2016 influenza virus vacc ine, unspecified formulation Cecily Chase DRAG SEINER.PATIENT INTAKE COORDINATOR Work Phone: [facility] Work Phone: 01-05-2016 influenza, seasonal, injectable, preservative free Cecily Chase DRAG SEINER.PATIENT INTAKE COORDINATOR Work Phone: [facility] Work Phone: 10-03-2013 tetanus toxoid, redu ray diphtheria toxoid, and acellular pertussis vaccine, adsorbed Cecily Chase DRAG SEINER.PATIENT INTAKE COORDINATOR Work Phone: [facility] 02-28-2013 influenza, seasonal, injectable, preservative free Cecily Chase DRAG SEINER.PATIENT INTAKE COORDINATOR Work Phone: [facility] Work Phone: 01-06-2010 influenza virus vacc ine, unspecified formulation Cecily Chase DRAG SEINER.PATIENT INTAKE COORDINATOR Work Phone: [facility] Work Phone: 01-15-2009 novel Influenza-H1N1 -09, live virus for nasal administration Cecily Chase DRAG SEINER.PATIENT INTAKE COORDINATOR Work Phone: [facility] Work Phone: 08-09-2007 Meningococcal, MCV4, unspecified conjugate formulation(groups A, C, Y and W-135) [facility] DRAG SEINER.PATIENT INTAKE COORDINATOR Work Phone: [facility] Work Phone: 06-01-2004 hepatitis B vaccine, pediatric or pediatric/adolescent dosage [facility] DRAG SEINER.PATIENT INTAKE COORDINATOR Work Phone: [facility] Work Phone: 06-01-2004 tetanus and diphther ia toxoids, not adsorbed, for adult use [facility] DRAG SEINER.PATIENT INTAKE COORDINATOR Work Phone: [facility] Work Phone: 08-05-2003 hepatitis B vaccine, pediatric or pediatric/adolescent dosage [facility] DRAG SEINER.PATIENT INTAKE COORDINATOR Work Phone: [facility] Work Phone: 08-05-2003 measles, mumps and rubella virus vaccine [facility] DRAG SEINER.PATIENT INTAKE COORDINATOR Work Phone: [facility] Work Phone: 04-16-1993 diphtheria, tetanus toxoids and acellular pertussis vaccine [facility] DRAG SEINER.PATIENT INTAKE COORDINATOR Work Phone: [facility] Work Phone: 04-16-1993 haemophilus influenz ae type b vaccine, HbOC conjugate [facility] DRAG SEINER.PATIENT INTAKE COORDINATOR Work Phone: [facility] Work Phone: 04-16-1993 measles, mumps and rubella virus vaccine [facility] DRAG SEINER.PATIENT INTAKE COORDINATOR Work Phone: [facility] Work Phone: 12-04-1992 haemophilus influenz ae type b vaccine, HbOC conjugate [facility] DRAG SEINER.PATIENT INTAKE COORDINATOR Work Phone: [facility] Work Phone: 12-04-1992 hepatitis B vaccine, pediatric or pediatric/adolescent dosage [facility] DRAG SEINER.PATIENT INTAKE COORDINATOR Work Phone: [facility] Work Phone: 12-04-1992 measles, mumps and rubella virus vaccine Cecily Chase DRAG SEINER.PATIENT INTAKE COORDINATOR Work Phone: [facility] Work Phone: 02-25-1992 diphtheria, tetanus toxoids and pertussis vaccine Cecily Chase DRAG SEINER.PATIENT INTAKE COORDINATOR Work Phone: [facility] Work Phone: 02-25-1992 haemophilus influenz ae type b vaccine, HbOC conjugate Cecily Chase DRAG SEINER.PATIENT INTAKE COORDINATOR Work Phone: [facility] Work Phone: 02-25-1992 trivalent poliovirus vaccine, live, oral Cecily Chase DRAG SEINER.PATIENT INTAKE COORDINATOR Work Phone: [facility] Work Phone: 1991 diphtheria, tetanus toxoids and pertussis vaccine Cecily Chase DRAG SEINER.PATIENT INTAKE COORDINATOR Work Phone: [facility] Work Phone: 1991 haemophilus influenz ae type b vaccine, HbOC conjugate Cecily Chase DRAG SEINER.PATIENT INTAKE COORDINATOR Work Phone: [facility] Work Phone: 1991 trivalent poliovirus vaccine, live, oral Cecily Chase DRAG SEINER.PATIENT INTAKE COORDINATOR Work Phone: [facility] Work Phone: 1991 diphtheria, tetanus toxoids and pertussis vaccine Cecily Chase DRAG SEINER.PATIENT INTAKE COORDINATOR Work Phone: [facility] Work Phone: 1991 haemophilus influenz ae type b vaccine, HbOC conjugate Cecily Chase DRAG SEINER.PATIENT INTAKE COORDINATOR Work Phone: [facility] Work Phone: 1991 trivalent poliovirus vaccine, live, oral Cecily Chase DRAG SEINER.PATIENT INTAKE COORDINATOR Work Phone: [facility] Work Phone: Payers Date Payer Category Payer Unknown [id number] 2017 Unknown 2015 Medicaid [employer] [id number] 2015-Present [phone] [address] [place] [address] Medicaid [id number] 2015 Medicaid [id number] 2015 Medicaid [id number] 1991 Unknown [id number] 1991 Unknown [id number] Social History Date Type Detail Facility [facility] Tobacco smoking consumption unknown [facility] Start: 02-27-2021 End: 12-24-2021 Tobacco smoking status NVIS Smokes tobacco daily [facility] History of tobacco use Cigarette Smoker [facility] Start: 02-27-2021 End: 08-30-2022 Cigarettes smoked current (pack per day) - Reported 0.5 [facility] Start: 02-27-2021 End: 12-24-2021 Tobacco use and exposure Smokeless tobacco non-user [facility] Start: 06-09-2021 End: 02-24-2023 Alcohol intake Current non-drinker of alcohol (finding) [facility] Start: 1990 Sex Assigned At Not on file [facility] Start: 05-30-2021 End: 02-09-2022 Exposure to SARS-CoV-2 (event) Not sure [facility] Work Phone: Start: 07-14-2021 End: 12-24-2021 Tobacco Comment 1 ppd started at age 18 [facility] Start: 09-02-2021 End: 05-26-2022 History SDOH Alcohol Frequency 2 [facility] Start: 09-02-2021 End: 12-09-2021 History SDOH Alcohol Std Drinks 1 [facility] Start: 09-02-2021 End: 05-26-2022 History SDOH Social Connections Living 3 [facility] Start: 05-26-2022 History SDOH Alcohol Std Drinks 0 [facility] Start: 05-26-2022 History SDOH Social Connections Phone 5 [facility] Start: 05-26-2022 History SDOH Social Connections Get Together 4 [facility] Start: 05-26-2022 History SDOH Social Connections Living 6 [facility] Start: 05-26-2022 End: 08-30-2022 Social connection and isolation panel [facility] Do you belong to any clubs or organizations such as adventist groups, unions, fraternal or athletic groups, or school groups? No [facility] Are you now , , , , never or living with a partner? [facility] How often to you hav e a drink containing alcohol? Never [facility] How many standard dr inks containing alcohol do you have on a typical day? Patient does not drink [facility] How hard is it for y ou to pay for the very basics like food, housing, medical care, and heating Not very hard [facility] Do you feel stress - tense, restless, nervous, or anxious, or unable to sleep at night because your mind is troubled all the time - these days [OSQ] Rather much [facility] (I/We) worried wheth er (my/our) food would run out before (I/we) got money to buy more. Never true [facility] Start: 1990 Sex Assigned At Female [facility] Start: 08-29-2022 Gender identity Identifies as female gender (finding) [facility] Clinical Notes 11-16-2018 to 04-05-2023 Cecily Chase APRN.PATIENT INTAKE COORDINATOR - 02/24/2023 10:20 AM ESTTelephone Encounter - Pallavi Orellana RN - 01/31/2023 8:54 AM ESTTelephone Encounter - Mónica Freeman OCCA - 01/31/2023 8:30 AM EST Note Date & Type Note Facility 04-05-2023 Note HNO ID: [id number] Author: ANTONETTE ROWELL APRN.HOT STAMP OPERATOR Service: ? Author Type: Nurse Practitioner Type: Progress Notes Filed: 04/05/2023 18:43 Note Text: Subjective HPI HPI Stella Tang is a 32 year old female who presents today for CC of toothache. This started 3 daysa go. Has tried otc medication for relief. Symptoms are worsened by nothing. Risk factors broken tooth on side of pain. Denies possibility of being . .Patient presents with: Dental Problem: lower right side tooth pain x 3 days PAST MEDICAL HISTORY Diagnosis Date Anemia WITH Anxiety and depression 09/07/2021 PAST SURGICAL HISTORY Procedure Laterality Date CARPAL TUNNEL 2017 right hand DELIVERY ONLY 2010 , low transverse DELIVERY ONLY 11/06/13 , low transverse DELIVERY ONLY 06/18/2019 RC/S low transverse NEXPLANON INSERTION 12/28/2013 removed TUBAL LIGATION Bilateral 06/18/2019 ALLERGIES Patient has no known allergies. MEDICATIONS hydrOXYzine HCl (ATARAX) 25 mg tablet Take 1 tablet by mouth three times a day as needed for anxiety. venlafaxine ER (EFFEXOR XR) 37.5 mg 24 hr capsule Take 1 capsule by mouth once daily. (Patient taking differently: Take 75 mg by mouth once daily.) pantoprazole DR (PROTONIX) 40 mg tablet Take 1 tablet by mouth once daily. montelukast (SINGULAIR) 10 mg tablet Take 1 tablet by mouth daily at bedtime. busPIRone (BUSPAR) 10 mg tablet Take 1 tablet by mouth three times daily. (Patient taking differently: Take 15 mg by mouth two times a day.) albuterol HFA (VENTOLIN HFA) 90 mcg/actuation inhaler Inhale 2 Puffs as instructed every 4 hours as needed for wheezing/shortness of breath. etonogestrel (NEXPLANON) subdermal implant 68 mg 1 Each by SUBDERMAL route as directed. amoxicillin (AMOXIL) 875 mg tablet Take 1 tablet by mouth two times a day for 10 days. ibuprofen (MOTRIN) 600 mg tablet Take 1 tablet by mouth every 6 hours as needed for pain. (Patient not taking: Reported on 04/05/2023) fluticasone-salmeterol (ADVAIR DISKUS) 250-50 mcg/dose inhaler Inhale 1 Puff as instructed twice daily. RINSE AND GARGLE MOUTH WITH WATER AFTER EACH USE. (Patient not taking: Reported on 02/24/2023) FAMILY HISTORY Problem Relation Age of Onset No Known Problems Mother No Known Problems Father No Known Problems Sister No Known Problems Brother Hypertension Maternal Grandmother Diabetes Maternal Grandmother Hypertension Maternal Grandfather Diabetes Maternal Grandfather Type II Heart Maternal Grandfather Kidney Disease Paternal Grandmother Hypertension Paternal Grandfather Diabetes Paternal Grandfather Type II No Known Problems Daughter No Known Problems Son Social History Tobacco Use Smoking status: Every Day Packs/day: 0.50 Years: 5.00 Additional pack years: 0.00 Total pack years: 2.50 Types: Cigarettes Smokeless tobacco: Never Tobacco comments: 1 ppd started at age 18 Vaping Use Vaping Use: Never used Substance Use Topics Alcohol use: No Drug use: No ROS Objective Blood pressure 132/88, pulse 82, temperature 36.4 ?C (97.6 ?F), resp. rate 16, weight 85.3 kg (188 lb), last menstrual period 07/15/2020, SpO2 96%. Physical Exam Constitutional: General: She is not in acute distress. Appearance: She is not toxic-appearing or diaphoretic. HENT: Head: Normocephalic and atraumatic. Right Ear: Hearing, tympanic membrane, ear canal and external ear normal. Left Ear: Hearing, tympanic membrane, ear canal and external ear normal. Mouth/Throat: Lips: Kamiah. Mouth: Mucous membranes are moist. Pulmonary: Effort: Pulmonary effort is normal. No accessory muscle usage or respiratory distress. Lymphadenopathy: Cervical: Right cervical: No superficial cervical adenopathy. Left cervical: No superficial cervical adenopathy. Neurological: Mental Status: She is alert and oriented to person, place, and time. ASSESSMENT/PLAN: 1. Toothache - ICD9: 525.9, ICD10: K08.89 Take medication as ordered See dentist dameon Follow up if signs of infection worsen - AMOXICILLIN 875 MG TABLET 2. Feared complaint without diagnosis - ICD9: V65.5, ICD10: Z71.1 Take if yeast infection occurs. - FLUCONAZOLE 150 MG TABLET Antonette Rowell APRN.[facility] 02-24-2023 Note HNO ID: [id number] Author: Cecily Chase APRN.PATIENT INTAKE COORDINATOR Service: ? Author Type: Nurse Specialist Type: Progress Notes Filed: 02/24/2023 10:40 AM Note Text: SUBJECTIVE: Pneumococcal Vaccine(1 - PCV) Never done HPV Vaccine(3 - 3-dose SCDM series) due on 10/04/2022 Influenza Vaccine(1) due on 11/12/2022 Covid-19 Vaccine( season) due on 11/12/2022 HPI Stella Tang is a 32 year old female. PMH significant for ACTIVE PROBLEM LIST Obesity, Class Iii, Bmi 40-49.9 (Morbid Obesity) (Hcc) Pain in Right Knee Chronic Right-Sided Low Back Pain With Right-Sided Sciatica Carpal Tunnel Syndrome of Right Wrist Anxiety and Depression PCP: Jennifer lAmanza MD Presents today with concern regarding weight, would like to resume phentermine which she has taken in the past for weight loss. Last prescribed in March 2022 per Jennifer Almanza MD She reports she did well with this in the past, no adverse effects. She reports trying to eat a healthy diet, small frequent meals through the day. Limiting portion sizes. 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 Goes to the gym occasionally, not routinely currently. Review of Systems Constitutional: Negative. HENT: Negative. Objective BP 126/83 Pulse 108 Resp 16 Wt 82.1 kg (181 lb) LMP 07/15/2020 BMI 34.20 kg/m? Physical Exam Vitals and nursing note reviewed. Constitutional: Appearance: Normal appearance. HENT: Head: Normocephalic and atraumatic. Mouth/Throat: Lips: Kamiah. Eyes: Conjunctiva/sclera: Conjunctivae normal. Cardiovascular: Rate and Rhythm: Normal rate and regular rhythm. Heart sounds: Normal heart sounds. Pulmonary: Effort: Pulmonary effort is normal. Breath sounds: Normal breath sounds. Skin: General: Skin is warm and dry. Neurological: General: No focal deficit present. Mental Status: She is alert and oriented to person, place, and time. ALLERGIES No Known Allergies Medication hydrOXYzine HCl (ATARAX) 25 mg tablet Take 1 tablet by mouth three times a day as needed for anxiety. venlafaxine ER (EFFEXOR XR) 37.5 mg 24 hr capsule Take 1 capsule by mouth once daily. (Patient taking differently: Take 75 mg by mouth once daily.) pantoprazole DR (PROTONIX) 40 mg tablet Take 1 tablet by mouth once daily. montelukast (SINGULAIR) 10 mg tablet Take 1 tablet by mouth daily at bedtime. busPIRone (BUSPAR) 10 mg tablet Take 1 tablet by mouth three times daily. (Patient taking differently: Take 15 mg by mouth two times a day.) ibuprofen (MOTRIN) 600 mg tablet Take 1 tablet by mouth every 6 hours as needed for pain. albuterol HFA (VENTOLIN HFA) 90 mcg/actuation inhaler Inhale 2 Puffs as instructed every 4 hours as needed for wheezing/shortness of breath. etonogestrel (NEXPLANON) subdermal implant 68 mg 1 Each by SUBDERMAL route as directed. FLUoxetine (PROZAC) 10 mg capsule Take once daily for 7 days then every other day until gone (Patient not taking: Reported on 02/24/2023) cyclobenzaprine (FLEXERIL) 5 mg tablet Take 1-2 tablets by mouth three times daily. (Patient not taking: Reported on 02/24/2023) fluticasone-salmeterol (ADVAIR DISKUS) 250-50 mcg/dose inhaler Inhale 1 Puff as instructed twice daily. RINSE AND GARGLE MOUTH WITH WATER AFTER EACH USE. (Patient not taking: Reported on 02/24/2023) PAST MEDICAL HISTORY Diagnosis Date Anemia WITH Anxiety and depression 09/07/2021 Social History Tobacco Use Smoking status: Every Day Packs/day: 0.50 Years: 5.00 Additional pack years: 0.00 Total pack years: 2.50 Types: Cigarettes Smokeless tobacco: Never Tobacco comments: 1 ppd started at age 18 Vaping Use Vaping Use: Never used Substance Use Topics Alcohol use: No Drug use: No Component Latest Ref Rng AND Units 02/20/2021 07/14/2021 WBC 3.70 - 11.00 k/uL 12.75 (H) RBC 3.90 - 5.20 m/uL 4.66 Hemoglobin 11.5 - 15.5 g/dL 13.8 Hematocrit 36.0 - 46.0 % 42.2 MCV 80.0 - 100.0 fL 90.6 MCH 26.0 - 34.0 pG 29.6 MCHC 30.5 - 36.0 g/dL 32.7 RDW-CV 11.5 - 15.0 % 12.5 Platelet Count 150 - 400 k/uL 292 MPV 9.0 - 12.7 fL 9.8 Neut% % 43.0 Abs Neut (ANC) 1.45 - 7.50 k/uL 5.48 Lymph% % 48.0 Abs Lymph 1.00 - 4.00 k/uL 6.12 (H) [place]% % 5.0 Abs [place] <0.87 k/uL 0.64 Eosin% % 4.0 Abs Eosin <0.46 k/uL 0.51 (H) Baso% % 0.0 Abs Baso <0.11 k/uL 0.00 ANC(includeSEG+BAND) k/uL 5.48 Red Cell Morph SEE COMMENT Platelet Estimate Platelet estimate adequate Diff Type Manual Diff Protein, Total 6.3 - 8.0 g/dL 7.3 Albumin 3.9 - 4.9 g/dL 4.6 Calcium 8.5 - 10.2 mg/dL 9.8 Bilirubin, Total 0.2 - 1.3 mg/dL 0.3 Alkaline Phosphatase 34 - 123 U/L 55 AST 13 - 35 U/L 17 Glucose 74 - 99 mg/dL 88 BUN 7 - 21 mg/dL 11 Creatinine 0.58 - 0.96 mg/dL 0.82 Sodium 136 - 144 mmol/L 139 Potassium 3.7 - 5.1 mmol/L 3.8 Chloride 97 - 105 mmol/L 102 CO2 22 - 30 mmol/L 25 Anion Gap 9 - 18 mmol/L 12 ALT 7 - 38 U/L 11 eGFR (more content not included)... [facility] 02-24-2023 History of Presen t illness Narrative SUBJECTIVE: Pneumococcal Vaccine(1 - PCV) Never done HPV Vaccine(3 - 3-dose SCDM series) due on 10/04/2022 Influenza Vaccine(1) due on 11/12/2022 Covid-19 Vaccine(3 - 2022- season) due on 11/12/2022 HPI Stella Tang is a 32 year old female. PMH significant for ACTIVE PROBLEM LIST Obesity, Class Iii, Bmi 40-49.9 (Morbid Obesity) (Hcc) Pain in Right Knee Chronic Right-Sided Low Back Pain With Right-Sided Sciatica Carpal Tunnel Syndrome of Right Wrist Anxiety and Depression PCP: Jennifer Almanza MD Presents today with concern regarding weight, would like to resume phentermine which she has taken in the past for weight loss. Last prescribed in March 2022 per Jennifer Almanza MD She reports she did well with this in the past, no adverse effects. She reports trying to eat a healthy diet, small frequent meals through the day. Limiting portion sizes. 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 Goes to the gym occasionally, not routinely currently. Review of Systems Constitutional: Negative. HENT: Negative. Objective BP 126/83 Pulse 108 Resp 16 Wt 82.1 kg (181 lb) LMP 07/15/2020 BMI 34.20 kg/m Physical Exam Vitals and nursing note reviewed. Constitutional: Appearance: Normal appearance. HENT: Head: Normocephalic and atraumatic. Mouth/Throat: Lips: Kamiah. Eyes: Conjunctiva/sclera: Conjunctivae normal. Cardiovascular: Rate and Rhythm: Normal rate and regular rhythm. Heart sounds: Normal heart sounds. Pulmonary: Effort: Pulmonary effort is normal. Breath sounds: Normal breath sounds. Skin: General: Skin is warm and dry. Neurological: General: No focal deficit present. Mental Status: She is alert and oriented to person, place, and time. ALLERGIES No Known Allergies Medication hydrOXYzine HCl (ATARAX) 25 mg tablet Take 1 tablet by mouth three times a day as needed for anxiety. venlafaxine ER (EFFEXOR XR) 37.5 mg 24 hr capsule Take 1 capsule by mouth once daily. (Patient taking differently: Take 75 mg by mouth once daily.) pantoprazole DR (PROTONIX) 40 mg tablet Take 1 tablet by mouth once daily. montelukast (SINGULAIR) 10 mg tablet Take 1 tablet by mouth daily at bedtime. busPIRone (BUSPAR) 10 mg tablet Take 1 tablet by mouth three times daily. (Patient taking differently: Take 15 mg by mouth two times a day.) ibuprofen (MOTRIN) 600 mg tablet Take 1 tablet by mouth every 6 hours as needed for pain. albuterol HFA (VENTOLIN HFA) 90 mcg/actuation inhaler Inhale 2 Puffs as instructed every 4 hours as needed for wheezing/shortness of breath. etonogestrel (NEXPLANON) subdermal implant 68 mg 1 Each by SUBDERMAL route as directed. FLUoxetine (PROZAC) 10 mg capsule Take once daily for 7 days then every other day until gone (Patient not taking: Reported on 02/24/2023) cyclobenzaprine (FLEXERIL) 5 mg tablet Take 1-2 tablets by mouth three times daily. (Patient not taking: Reported on 02/24/2023) fluticasone-salmeterol (ADVAIR DISKUS) 250-50 mcg/dose inhaler Inhale 1 Puff as instructed twice daily. RINSE AND GARGLE MOUTH WITH WATER AFTER EACH USE. (Patient not taking: Reported on 02/24/2023) PAST MEDICAL HISTORY Diagnosis Date Anemia WITH Anxiety and depression 09/07/2021 Social History Tobacco Use Smoking status: Every Day Packs/day: 0.50 Years: 5.00 Additional pack years: 0.00 Total pack years: 2.50 Types: Cigarettes Smokeless tobacco: Never Tobacco comments: 1 ppd started at age 18 Vaping Use Vaping Use: Never used Substance Use Topics Alcohol use: No Drug use: No Component Latest Ref Rng & Units 02/20/2021 07/14/2021 WBC 3.70 - 11.00 k/uL 12.75 (H) RBC 3.90 - 5.20 m/uL 4.66 Hemoglobin 11.5 - 15.5 g/dL 13.8 Hematocrit 36.0 - 46.0 % 42.2 MCV 80.0 - 100.0 fL 90.6 MCH 26.0 - 34.0 pG 29.6 MCHC 30.5 - 36.0 g/dL 32.7 RDW-CV 11.5 - 15.0 % 12.5 Platelet Count 150 - 400 k/uL 292 MPV 9.0 - 12.7 fL 9.8 Neut% % 43.0 Abs Neut (ANC) 1.45 - 7.50 k/uL 5.48 Lymph% % 48.0 Abs Lymph 1.00 - 4.00 k/uL 6.12 (H) [place]% % 5.0 Abs [place] <0.87 k/uL 0.64 Eosin% % 4.0 Abs Eosin <0.46 k/uL 0.51 (H) Baso% % 0.0 Abs Baso <0.11 k/uL 0.00 ANC(includeSEG+BAND) k/uL 5.48 Red Cell Morph SEE COMMENT Platelet Estimate Platelet estimate adequate Diff Type Manual Diff Protein, Total 6.3 - 8.0 g/dL 7.3 Albumin 3.9 - 4.9 g/dL 4.6 Calcium 8.5 - 10.2 mg/dL 9.8 Bilirubin, Total 0.2 - 1.3 mg/dL 0.3 Alkaline Phosphatase 34 - 123 U/L 55 AST 13 - 35 U/L 17 Glucose 74 - 99 mg/dL 88 BUN 7 - 21 mg/dL 11 Creatinine 0.58 - 0.96 mg/dL 0.82 Sodium 136 - 144 mmol/L 139 Potassium 3.7 - 5.1 mmol/L 3.8 Chloride 97 - 105 mmol/L 102 CO2 22 - 30 mmol/L 25 Anion Gap 9 - 18 mmol/L 12 ALT 7 - 38 U/L 11 eGFR- >60 eGFR-All Other Races . >60 Cladosporium herbarum IgE <0.35 kU/l <0.35 Cladosporium herbarum Class Class 0 Class 0 Aspergillus fumigatus IgE <0.35 kU/l <0.35 Aspergillus fumigatus Class Class 0 Class 0 Mucor racemosus IgE <0.35 kU/l <0.35 Mucor racemosus Class Class 0 Class 0 Ivon albicans IgE <0.35 kU/l <0.35 Ivon albicans Class Class 0 Class 0 Alternaria tenuis IgE <0.35 kU/l <0.35 Alternaria tenuis Class Class 0 Class 0 TSH 0.270 - 4.200 uU/mL 1.150 ASSESSMENT/PLAN: 1. Obesity (BMI 30-39.9) - ICD9: 278.00, ICD10: E66.9 (primary diagnosis) Weight increasing - Pharmacological intervention for now. Consider additional supports if interested in the future, defers for now. Initial weight 181 pounds Endorse continued portion control, and daily exercise such as walking for 30 minutes, plant-based diet such as Mediterranean diet endorsed. - PHENTERMINE 37.5 MG TABLET - PHENTERMINE 37.5 MG TABLET - PHENTERMINE 37.5 MG TABLET no required time off therapy after 12 weeks (still need to have an initial BMI>30 or >27 with the listed comorbid factors) need to assess at least once every three months and obtain weight, blood pressure, and heart rate not to continue therapy if have not achieved a weight loss of at least 5% of initial weight, during the initial three month period Recheck in 3 months Cecily Chase APRN.PATIENT INTAKE COORDINATOR Medical Decision Making: Problems: Low: Acute, uncomplicated illness or injury Risk: Moderate: Drug management Medical Decision Making Level: 3 - Low documented in this encounter [facility] 01-31-2023 Miscellaneous Notes Patient called and notified of below. Patient voices understanding. Pallavi Orellana RN TC to patient with no answer. Left VM to return call to office regarding refill request. CARLOS Liu Will get more refills when seen for Sergei follow up Okayed RXs Patient has been identified by name and date of : Yes Last office visit in this department: 06/23/2022 RX INSTRUCTIONS: Patient aware RX will be sent to pharmacy. No need to notify patient. Patient phones requesting refills as follows: Requested Prescriptions Pending Prescriptions Disp Refills hydrOXYzine HCl (ATARAX) 25 mg tablet 30 tablet 1 Sig: Take 1 tablet by mouth three times a day as needed for anxiety. venlafaxine ER (EFFEXOR XR) 37.5 mg 24 hr capsule 30 capsule 0 Sig: Take 1 capsule by mouth once daily. pantoprazole DR (PROTONIX) 40 mg tablet 30 tablet 5 Sig: Take 1 tablet by mouth once daily. montelukast (SINGULAIR) 10 mg tablet 30 tablet 5 Sig: Take 1 tablet by mouth daily at bedtime. Please review and advise. Waqar Rutherford documented in this encounter [facility] 12-24-2022 Miscellaneous Notes Patient declined to schedule stated she will ask her PCP for this medication Patient needs an appointment. Last appt in July 2021 Patient phones requesting refills as follows: JULIA: 07/14/21 Requested Prescriptions Pending Prescriptions Disp Refills pantoprazole DR (PROTONIX) 40 mg tablet 30 tablet 5 Sig: Take 1 tablet by mouth once daily. Please review and advise. Maria Victoria Lan LPN documented in this encounter [facility] 12-24-2022 Miscellaneous Notes Duplicate request. Patient needs appt per [place]. Maria Victoria Lan LPN documented in this encounter [facility] 11-29-2022 Note HNO ID: [id number] Author: Lona Morocho RT(R) Service: Radiology Author Type: Technologist Type: Progress Notes Filed: 11/29/2022 3:26 PM Note Text: Radiology Service Progress Note PATIENT NAME: Stella Tang DATE OF SERVICE: November 29, 2022 TIME: 3:17 PM PATIENT IDENTITY VERIFICATION COMPLETED USING TWO (2) IDENTIFIERS: Name and Date of confirmed by patient verbally. FALL SCREENING: Has the patient had 2 falls in the last year or 1 fall with injury or currently using an Ambulatory Assistive Device (Walker, Cane, Wheelchair, Crutches, etc.)? No PATIENT GENDER DATA: Female. status: : No status: NO. PATIENT RELEVANT IMPLANT DATA REVIEWED: Yes RADIOLOGY DEPARTMENT: General X-ray: Exam(s) Completed: Chest X-Ray PERIPHERAL IV DATA: Not applicable SIGNED BY: RT Hernandez(R) November 29, 2022 3:17 PM [facility] 11-29-2022 Note HNO ID: [id number] Author: Antonette Rowell APRN.HOT STAMP OPERATOR Service: ? Author Type: Nurse Practitioner Type: Progress Notes Filed: 11/29/2022 5:34 PM Note Text: Subjective HPI HPI Stella Tang is a 32 year old female who presents today for CC of cough, congestion, wheezing. This started 2 days ago. Has tried otc medication for relief. Symptoms are worsened by nothing. Risk factors hx of asthma, smoker, sick exposures at work. Denies possibility of being . .Patient presents with: Cough: Chest congestion, wheezing x2 days PAST MEDICAL HISTORY Diagnosis Date Anemia WITH Anxiety and depression 09/07/2021 PAST SURGICAL HISTORY Procedure Laterality Date CARPAL TUNNEL 2017 right hand DELIVERY ONLY 2010 , low transverse DELIVERY ONLY 11/06/13 , low transverse DELIVERY ONLY 06/18/2019 RC/S low transverse NEXPLANON INSERTION 12/28/2013 removed TUBAL LIGATION Bilateral 06/18/2019 ALLERGIES Patient has no known allergies. MEDICATIONS predniSONE (DELTASONE) 10 mg tablet Take 4 tabs daily for 3 days, then 2 tabs daily for 3 days, then 1 tab daily for 3 days with food. venlafaxine ER (EFFEXOR XR) 37.5 mg 24 hr capsule Take 1 capsule by mouth once daily. FLUoxetine (PROZAC) 10 mg capsule Take once daily for 7 days then every other day until gone busPIRone (BUSPAR) 10 mg tablet Take 1 tablet by mouth three times daily. hydrOXYzine HCl (ATARAX) 25 mg tablet Take 1 tablet by mouth three times daily as needed for anxiety. LORazepam (ATIVAN) 0.5 mg Take 1 tablet by mouth three times daily as needed (anxiety) for up to 90 days. cyclobenzaprine (FLEXERIL) 5 mg tablet Take 1-2 tablets by mouth three times daily. ibuprofen (MOTRIN) 600 mg tablet Take 1 tablet by mouth every 6 hours as needed for pain. montelukast (SINGULAIR) 10 mg tablet Take 1 tablet by mouth daily at bedtime. albuterol HFA (VENTOLIN HFA) 90 mcg/actuation inhaler Inhale 2 Puffs as instructed every 4 hours as needed for wheezing/shortness of breath. pantoprazole DR (PROTONIX) 40 mg tablet Take 1 tablet by mouth once daily. fluticasone-salmeterol (ADVAIR DISKUS) 250-50 mcg/dose inhaler Inhale 1 Puff as instructed twice daily. RINSE AND GARGLE MOUTH WITH WATER AFTER EACH USE. etonogestrel (NEXPLANON) subdermal implant 68 mg 1 Each by SUBDERMAL route as directed. FAMILY HISTORY Problem Relation Age of Onset No Known Problems Mother No Known Problems Father No Known Problems Sister No Known Problems Brother Hypertension Maternal Grandmother Diabetes Maternal Grandmother Hypertension Maternal Grandfather Diabetes Maternal Grandfather Type II Heart Maternal Grandfather Kidney Disease Paternal Grandmother Hypertension Paternal Grandfather Diabetes Paternal Grandfather Type II No Known Problems Daughter No Known Problems Son Social History Tobacco Use Smoking status: Every Day Packs/day: 0.50 Years: 5.00 Additional pack years: 0.00 Total pack years: 2.50 Types: Cigarettes Smokeless tobacco: Never Tobacco comments: 1 ppd started at age 18 Vaping Use Vaping Use: Never used Substance Use Topics Alcohol use: No Drug use: No Review of Systems Constitutional: Negative for fever. HENT: Positive for congestion. Negative for ear pain, nosebleeds and sore throat. Respiratory: Positive for cough and wheezing. Negative for shortness of breath. Cardiovascular: Negative for chest pain. Gastrointestinal: Negative for diarrhea and vomiting. Musculoskeletal: Negative for neck pain. Skin: Negative for itching and rash. Objective Blood pressure 136/89, pulse (!) 124, temperature 36.9 ?C (98.5 ?F), resp. rate 18, weight 82.2 kg (181 lb 3.2 oz), last menstrual period 07/15/2020, SpO2 98 %. HR recheck manual by provider 102. Physical Exam Constitutional: General: She is not in acute distress. Appearance: She is not toxic-appearing or diaphoretic. HENT: Head: Normocephalic and atraumatic. Cardiovascular: Rate and Rhythm: Normal rate and regular rhythm. Heart sounds: Normal heart sounds, S1 normal and S2 normal. Pulmonary: Effort: Pulmonary effort is normal. Breath sounds: Wheezing (throughout bilat) present. No decreased breath sounds, rhonchi or rales. Lymphadenopathy: Cervical: No cervical adenopathy. Right cervical: No superficial cervical adenopathy. Left cervical: No superficial cervical adenopathy. Neurological: Mental Status: She is alert and oriented to person, place, and time. Gait: Gait is intact. ASSESSMENT/PLAN: 1. Mild intermittent asthmatic bronchitis without complication - ICD9: 493.90, ICD10: J45.20 (primary diagnosis) Steroid ordered Continue inhalers -If you experience chest pain/shortness of breath go to ER - PREDNISONE 10 MG TABLET 2. Rhonchi - ICD9: 786.7, ICD10: R09.89 Xray negative. - XR CHEST 2V FRONTAL/LAT IMPRESSION: Within normal limit (more content not included)... [facility] 11-29-2022 History of Presen t illness Narrative Subjective HPI HPI Stella Tang is a 32 year old female who presents today for CC of cough, congestion, wheezing. This started 2 days ago. Has tried otc medication for relief. Symptoms are worsened by nothing. Risk factors hx of asthma, smoker, sick exposures at work. Denies possibility of being . .Patient presents with: Cough: Chest congestion, wheezing x2 days PAST MEDICAL HISTORY Diagnosis Date Anemia WITH Anxiety and depression 09/07/2021 PAST SURGICAL HISTORY Procedure Laterality Date CARPAL TUNNEL 2017 right hand DELIVERY ONLY 2010 , low transverse DELIVERY ONLY 11/06/13 , low transverse DELIVERY ONLY 06/18/2019 RC/S low transverse NEXPLANON INSERTION 12/28/2013 removed TUBAL LIGATION Bilateral 06/18/2019 ALLERGIES Patient has no known allergies. MEDICATIONS predniSONE (DELTASONE) 10 mg tablet Take 4 tabs daily for 3 days, then 2 tabs daily for 3 days, then 1 tab daily for 3 days with food. venlafaxine ER (EFFEXOR XR) 37.5 mg 24 hr capsule Take 1 capsule by mouth once daily. FLUoxetine (PROZAC) 10 mg capsule Take once daily for 7 days then every other day until gone busPIRone (BUSPAR) 10 mg tablet Take 1 tablet by mouth three times daily. hydrOXYzine HCl (ATARAX) 25 mg tablet Take 1 tablet by mouth three times daily as needed for anxiety. LORazepam (ATIVAN) 0.5 mg Take 1 tablet by mouth three times daily as needed (anxiety) for up to 90 days. cyclobenzaprine (FLEXERIL) 5 mg tablet Take 1-2 tablets by mouth three times daily. ibuprofen (MOTRIN) 600 mg tablet Take 1 tablet by mouth every 6 hours as needed for pain. montelukast (SINGULAIR) 10 mg tablet Take 1 tablet by mouth daily at bedtime. albuterol HFA (VENTOLIN HFA) 90 mcg/actuation inhaler Inhale 2 Puffs as instructed every 4 hours as needed for wheezing/shortness of breath. pantoprazole DR (PROTONIX) 40 mg tablet Take 1 tablet by mouth once daily. fluticasone-salmeterol (ADVAIR DISKUS) 250-50 mcg/dose inhaler Inhale 1 Puff as instructed twice daily. RINSE AND GARGLE MOUTH WITH WATER AFTER EACH USE. etonogestrel (NEXPLANON) subdermal implant 68 mg 1 Each by SUBDERMAL route as directed. FAMILY HISTORY Problem Relation Age of Onset No Known Problems Mother No Known Problems Father No Known Problems Sister No Known Problems Brother Hypertension Maternal Grandmother Diabetes Maternal Grandmother Hypertension Maternal Grandfather Diabetes Maternal Grandfather Type II Heart Maternal Grandfather Kidney Disease Paternal Grandmother Hypertension Paternal Grandfather Diabetes Paternal Grandfather Type II No Known Problems Daughter No Known Problems Son Social History Tobacco Use Smoking status: Every Day Packs/day: 0.50 Years: 5.00 Additional pack years: 0.00 Total pack years: 2.50 Types: Cigarettes Smokeless tobacco: Never Tobacco comments: 1 ppd started at age 18 Vaping Use Vaping Use: Never used Substance Use Topics Alcohol use: No Drug use: No Review of Systems Constitutional: Negative for fever. HENT: Positive for congestion. Negative for ear pain, nosebleeds and sore throat. Respiratory: Positive for cough and wheezing. Negative for shortness of breath. Cardiovascular: Negative for chest pain. Gastrointestinal: Negative for diarrhea and vomiting. Musculoskeletal: Negative for neck pain. Skin: Negative for itching and rash. Objective Blood pressure 136/89, pulse (!) 124, temperature 36.9 C (98.5 F), resp. rate 18, weight 82.2 kg (181 lb 3.2 oz), last menstrual period 07/15/2020, SpO2 98 %. HR recheck manual by provider 102. Physical Exam Constitutional: General: She is not in acute distress. Appearance: She is not toxic-appearing or diaphoretic. HENT: Head: Normocephalic and atraumatic. Cardiovascular: Rate and Rhythm: Normal rate and regular rhythm. Heart sounds: Normal heart sounds, S1 normal and S2 normal. Pulmonary: Effort: Pulmonary effort is normal. Breath sounds: Wheezing (throughout bilat) present. No decreased breath sounds, rhonchi or rales. Lymphadenopathy: Cervical: No cervical adenopathy. Right cervical: No superficial cervical adenopathy. Left cervical: No superficial cervical adenopathy. Neurological: Mental Status: She is alert and oriented to person, place, and time. Gait: Gait is intact. ASSESSMENT/PLAN: 1. Mild intermittent asthmatic bronchitis without complication - ICD9: 493.90, ICD10: J45.20 (primary diagnosis) Steroid ordered Continue inhalers -If you experience chest pain/shortness of breath go to ER - PREDNISONE 10 MG TABLET 2. Rhonchi - ICD9: 786.7, ICD10: R09.89 Xray negative. - XR CHEST 2V FRONTAL/LAT IMPRESSION: Within normal limits. No acute cardiopulmonary abnormalities. Dictated by : MD Antonette BARNES APRN.HOT STAMP OPERATOR documented in this encounter [facility] 11-12-2022 Note HNO ID: [id number] Author: Krupa Musa APRN.HOT STAMP OPERATOR Service: ? Author Type: Nurse Practitioner Type: Progress Notes Filed: 11/17/2022 7:31 AM Note Text: Chief Complaint Patient presents with: Recheck: Follow up HPI Stella Tang is a 32 year old female who presents here today for anxiety and depression follow-up. Patient was seen 3 months ago by PCP and had buspar increased.. Patient reports uncontrolled depression and anxiety. Still with intense panic attacks every other week. Is going to counseling at [facility]. Side effects: None Denies suicidal thoughts or plan. Originally was on lexapro but experienced weight gain so switched to prozac last fall. Is taking 10mg buspar TID which has helped her anxiety. Is needing to use the ativan once every two weeks. 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 Suicidal Thoughts: No suicidal ideation, intent or plan Support: Comes from multiple sources including parents. REVIEW OF SYSTEMS See HPI PAST MEDICAL HISTORY Diagnosis Date Anemia WITH Anxiety and depression 09/07/2021 PAST SURGICAL HISTORY Procedure Laterality Date CARPAL TUNNEL 2017 right hand DELIVERY ONLY 2010 , low transverse DELIVERY ONLY 11/06/13 , low transverse DELIVERY ONLY 06/18/2019 RC/S low transverse NEXPLANON INSERTION 12/28/2013 removed TUBAL LIGATION Bilateral 06/18/2019 ALLERGIES Patient has no known allergies. MEDICATIONS LORazepam (ATIVAN) 0.5 mg Take 1 tablet by mouth three times daily as needed (anxiety) for up to 90 days. cyclobenzaprine (FLEXERIL) 5 mg tablet Take 1-2 tablets by mouth three times daily. ibuprofen (MOTRIN) 600 mg tablet Take 1 tablet by mouth every 6 hours as needed for pain. FLUoxetine (PROZAC) 20 mg capsule Take 1 capsule by mouth once daily. Take 1 pill daily for 14 days and then increase to 2 pills a day busPIRone (BUSPAR) 5 mg tablet Take 1 to 2 tablets upto 3 times a day montelukast (SINGULAIR) 10 mg tablet Take 1 tablet by mouth daily at bedtime. albuterol HFA (VENTOLIN HFA) 90 mcg/actuation inhaler Inhale 2 Puffs as instructed every 4 hours as needed for wheezing/shortness of breath. pantoprazole DR (PROTONIX) 40 mg tablet Take 1 tablet by mouth once daily. fluticasone-salmeterol (ADVAIR DISKUS) 250-50 mcg/dose inhaler Inhale 1 Puff as instructed twice daily. RINSE AND GARGLE MOUTH WITH WATER AFTER EACH USE. etonogestrel (NEXPLANON) subdermal implant 68 mg 1 Each by SUBDERMAL route as directed. FAMILY HISTORY Problem Relation Age of Onset No Known Problems Mother No Known Problems Father No Known Problems Sister No Known Problems Brother Hypertension Maternal Grandmother Diabetes Maternal Grandmother Hypertension Maternal Grandfather Diabetes Maternal Grandfather Type II Heart Maternal Grandfather Kidney Disease Paternal Grandmother Hypertension Paternal Grandfather Diabetes Paternal Grandfather Type II No Known Problems Daughter No Known Problems Son Social History Tobacco Use Smoking status: Every Day Packs/day: 0.50 Years: 5.00 Additional pack years: 0.00 Total pack years: 2.50 Types: Cigarettes Smokeless tobacco: Never Tobacco comments: 1 ppd started at age 18 Vaping Use Vaping Use: Never used Substance Use Topics Alcohol use: No Drug use: No PHYSICAL EXAM BP 122/78 Pulse 108 Resp 16 Wt 79.4 kg (175 lb) LMP 07/15/2020 SpO2 98% BMI 33.07 kg/m? Appearance: well dressed well groomed, cooperative, and pleasant Behavior: good eye contact Speech: normal and fluent and coherent Mood: happy but has toddler with her so very distracted in visit Affect: appropriate Perceptions: none Thought process: goal directed Thought Content: normal Intelligence level: normal Insight: good Judgment: good ASSESSMENT/PLAN: 1. Anxiety and depression - ICD9: 300.00, 311, ICD10: F41.9, F32.A (primary diagnosis) - uncontrolled - has been on multiple SSRIs, will wean of fluoxetine and start low dose effexor along with increasing her buspar - Reviewed concept of neurochemical imbalance with depression/anxiety, treatment options and benefits of counseling in combination with medication. Also reviewed benefits of sleep hygeine, diet and exercise - Follow-up in 6 weeks or sooner as needed - Instructed patient to contact office or [id number] after-hours promptly should condition worsen or any new symptoms appear. - [facility] and after hours crisis line 2. Panic attacks - ICD9: 300.01, ICD10: F41.0 As above Hydroxyzine as ordered. Prescription instructions reviewed with patient as applicable. Potential red flag symptoms discussed with the patient. Reviewed appropriate action (more content not included)... [facility] 11-12-2022 Instructions Krupa Musa APRN.CNP - 11/12/2022 11:14 AM EDT Once starting prozac every other day, start the daily effexor documented in this encounter [facility] 11-12-2022 History of Presen t illness Narrative Chief Complaint Patient presents with: Recheck: Follow up HPI Stella Tang is a 32 year old female who presents here today for anxiety and depression follow-up. Patient was seen 3 months ago by PCP and had buspar increased.. Patient reports uncontrolled depression and anxiety. Still with intense panic attacks every other week. Is going to counseling at [facility]. Side effects: None Denies suicidal thoughts or plan. Originally was on lexapro but experienced weight gain so switched to prozac last fall. Is taking 10mg buspar TID which has helped her anxiety. Is needing to use the ativan once every two weeks. 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 Suicidal Thoughts: No suicidal ideation, intent or plan Support: Comes from multiple sources including parents. REVIEW OF SYSTEMS See HPI PAST MEDICAL HISTORY Diagnosis Date Anemia WITH Anxiety and depression 09/07/2021 PAST SURGICAL HISTORY Procedure Laterality Date CARPAL TUNNEL 2017 right hand DELIVERY ONLY 2010 , low transverse DELIVERY ONLY 11/06/13 , low transverse DELIVERY ONLY 06/18/2019 RC/S low transverse NEXPLANON INSERTION 12/28/2013 removed TUBAL LIGATION Bilateral 06/18/2019 ALLERGIES Patient has no known allergies. MEDICATIONS LORazepam (ATIVAN) 0.5 mg Take 1 tablet by mouth three times daily as needed (anxiety) for up to 90 days. cyclobenzaprine (FLEXERIL) 5 mg tablet Take 1-2 tablets by mouth three times daily. ibuprofen (MOTRIN) 600 mg tablet Take 1 tablet by mouth every 6 hours as needed for pain. FLUoxetine (PROZAC) 20 mg capsule Take 1 capsule by mouth once daily. Take 1 pill daily for 14 days and then increase to 2 pills a day busPIRone (BUSPAR) 5 mg tablet Take 1 to 2 tablets upto 3 times a day montelukast (SINGULAIR) 10 mg tablet Take 1 tablet by mouth daily at bedtime. albuterol HFA (VENTOLIN HFA) 90 mcg/actuation inhaler Inhale 2 Puffs as instructed every 4 hours as needed for wheezing/shortness of breath. pantoprazole DR (PROTONIX) 40 mg tablet Take 1 tablet by mouth once daily. fluticasone-salmeterol (ADVAIR DISKUS) 250-50 mcg/dose inhaler Inhale 1 Puff as instructed twice daily. RINSE AND GARGLE MOUTH WITH WATER AFTER EACH USE. etonogestrel (NEXPLANON) subdermal implant 68 mg 1 Each by SUBDERMAL route as directed. FAMILY HISTORY Problem Relation Age of Onset No Known Problems Mother No Known Problems Father No Known Problems Sister No Known Problems Brother Hypertension Maternal Grandmother Diabetes Maternal Grandmother Hypertension Maternal Grandfather Diabetes Maternal Grandfather Type II Heart Maternal Grandfather Kidney Disease Paternal Grandmother Hypertension Paternal Grandfather Diabetes Paternal Grandfather Type II No Known Problems Daughter No Known Problems Son Social History Tobacco Use Smoking status: Every Day Packs/day: 0.50 Years: 5.00 Additional pack years: 0.00 Total pack years: 2.50 Types: Cigarettes Smokeless tobacco: Never Tobacco comments: 1 ppd started at age 18 Vaping Use Vaping Use: Never used Substance Use Topics Alcohol use: No Drug use: No PHYSICAL EXAM BP 122/78 Pulse 108 Resp 16 Wt 79.4 kg (175 lb) LMP 07/15/2020 SpO2 98% BMI 33.07 kg/m Appearance: well dressed well groomed, cooperative, and pleasant Behavior: good eye contact Speech: normal and fluent and coherent Mood: happy but has toddler with her so very distracted in visit Affect: appropriate Perceptions: none Thought process: goal directed Thought Content: normal Intelligence level: normal Insight: good Judgment: good ASSESSMENT/PLAN: 1. Anxiety and depression - ICD9: 300.00, 311, ICD10: F41.9, F32.A (primary diagnosis) - uncontrolled - has been on multiple SSRIs, will wean of fluoxetine and start low dose effexor along with increasing her buspar - Reviewed concept of neurochemical imbalance with depression/anxiety, treatment options and benefits of counseling in combination with medication. Also reviewed benefits of sleep hygeine, diet and exercise - Follow-up in 6 weeks or sooner as needed - Instructed patient to contact office or [id number] after-hours promptly should condition worsen or any new symptoms appear. - [facility] and after hours crisis line 2. Panic attacks - ICD9: 300.01, ICD10: F41.0 As above Hydroxyzine as ordered. Prescription instructions reviewed with patient as applicable. Potential red flag symptoms discussed with the patient. Reviewed appropriate action plan to take if red flag symptoms occur. Patient agreeable to treatment plan Krupa Musa APRN.CNP documented in this encounter [facility] 11-05-2022 Miscellaneous Notes Detailed VM left on pt's identified voicemail of information below. Britney Salas LPN Small amount refilled. Can discuss further at follow up appointment.. Thank you Krupa Musa APRN.CNP PDMP website checked and validated. All prescriptions have been APPROPRIATELY filled. No suspicious activity was identified. 11/05/2022 by Krupa Musa APRN.ANKIT Spoke with pt and information listed below given. Pt reports she uses the Ativan may 3 to 4 times in the past month. She only takes this if she is having a bad day. Pt is out and asking to have this on hand. Pt has apt on 11-12-22 with Krupa Musa and also has an apt with a psychiatrist in December some time. Please review and advise pt. Britney Salas LPN This was to be used short term until her buspar was helping. Has been on buspar for 6 months with reported improvement and increase in dose. If her anxiety is improving she should not need the lorazepam often or at all. If she is still needing this often, we need a follow up to further evaluate her anxiety. Thank you Krupa Musa APRN.ANKIT Patient has been identified by name and date of : No Patient phones for refill(s): Requested Prescriptions Pending Prescriptions Disp Refills cyclobenzaprine (FLEXERIL) 5 mg tablet 30 tablet 0 Sig: Take 1-2 tablets by mouth three times daily. LORazepam (ATIVAN) 0.5 mg 15 tablet 1 Sig: Take 1 tablet by mouth three times daily as needed (anxiety) for up to 90 days. Date of last office visit in primary care: 07/12/22 Last 2 Encounter Wt Readings: Date: Wt: 07/12/2022 77.1 kg (170 lb) 06/23/2022 79.8 kg (176 lb) Previous labs/tests for medication: Not applicable Please advise. Thank you. Breanna Willams LPN documented in this encounter [facility] 11-02-2022 Miscellaneous Notes See mychart refill request. Pt was last seen in the office on 03/30/22. Please advise. Mary Avila LPN documented in this encounter [facility] 07-15-2022 Note HNO ID: [id number] Author: Antonette Rowell APRN.ANKIT Service: ? Author Type: Nurse Practitioner Type: Progress Notes Filed: 07/15/2022 6:19 PM Note Text: Patient triaged at [facility]. Here today with severe anxiety, crying. Reports is on many medication for this and they are not working. At time of triage this is after office hours. I will refer patient to ER. Family to drive pov to [facility] ER. [facility] 07-15-2022 History of Presen t illness Narrative Patient triaged at [facility]. Here today with severe anxiety, crying. Reports is on many medication for this and they are not working. At time of triage this is after office hours. I will refer patient to ER. Family to drive pov to [facility] ER. documented in this encounter [facility] 07-12-2022 Note HNO ID: [id number] Author: Jennifer Almanza MD Service: ? Author Type: Physician Type: Progress Notes Filed: 07/12/2022 6:06 PM Note Text: Reason for Visit Patient presents with: Follow Up: 3 month follow up-weight Stella Tang is a 31 year old female who presents here today for Above Complaints.. Health Maintenance PNEUMOCOCCAL(1 - PCV) HPI She is on prozac at 20 mgs which has helped her depression. She is on buspar 3 times a day. And that works better for anxiety than prozac Symptoms: gets very anxious and has episodes where she feels an elephant on her chest, sob, chest pain which lasts for minutes to hours , poor appetite, excessive worrying, irritability, trouble relaxing. she is going through a divorce. With 3 kids. Panic attacks: yes Alcohol use: does not drink any alcohol Drug use: No Appetite: poor Stresses: Increased, divorce, Suicidal Thoughts: No suicidal ideation, intent or plan Support: yes, grandma , parents and friends. Counseling: No Personal mental health hx: has hx of depression. Social support is grandparent and parents and sibling, and she does counseling for an hour every week and that helps her some. We asked the patient to cut down her smoking as much aspossible She would also like to take an increased dose of buspar. Lost weight as she is more active and less stressed out. Patient notes she is able to take care of herself much better now than in the past. No problem-specific Assessment AND Plan notes found for this encounter. PAST MEDICAL HISTORY Diagnosis Date Anemia WITH Anxiety and depression 09/07/2021 PAST SURGICAL HISTORY Procedure Laterality Date CARPAL TUNNEL 2017 right hand DELIVERY ONLY 2010 , low transverse DELIVERY ONLY 11/06/13 , low transverse DELIVERY ONLY 06/18/2019 RC/S low transverse NEXPLANON INSERTION 12/28/2013 removed TUBAL LIGATION Bilateral 06/18/2019 FAMILY HISTORY Problem Relation Age of Onset No Known Problems Mother No Known Problems Father No Known Problems Sister No Known Problems Brother Hypertension Maternal Grandmother Diabetes Maternal Grandmother Hypertension Maternal Grandfather Diabetes Maternal Grandfather Type II Heart Maternal Grandfather Kidney Disease Paternal Grandmother Hypertension Paternal Grandfather Diabetes Paternal Grandfather Type II No Known Problems Daughter No Known Problems Son Social History Tobacco Use Smoking status: Every Day Packs/day: 0.50 Years: 5.00 Pack years: 2.50 Types: Cigarettes Smokeless tobacco: Never Tobacco comments: 1 ppd started at age 18 Vaping Use Vaping Use: Never used Substance Use Topics Alcohol use: No Drug use: No Past medical history, appointments, medications, allergies reviewed. Pertinent Lab/Diagnostic Studies are reviewed and discussed today Current Outpatient Medications: montelukast (SINGULAIR) 10 mg tablet busPIRone (BUSPAR) 5 mg tablet LORazepam (ATIVAN) 0.5 mg cyclobenzaprine (FLEXERIL) 5 mg tablet FLUoxetine (PROZAC) 20 mg capsule albuterol HFA (VENTOLIN HFA) 90 mcg/actuation inhaler pantoprazole DR (PROTONIX) 40 mg tablet fluticasone-salmeterol (ADVAIR DISKUS) 250-50 mcg/dose inhaler ibuprofen (MOTRIN) 600 mg tablet etonogestrel (NEXPLANON) subdermal implant 68 mg Review of Systems CONSTITUTIONAL: No fevers, chills night sweats, unintended weight loss CARDIOVASCULAR: No chest pain, dyspnea, palpitations, orthopnea, PND, ankle edema. PULM: No dyspnea, unexplained cough. GI: No dysphagia/odynophagia, problematic reflux, constipation, diarrhea, changes in stool habits, hematochezia, melena. : No new urinary complaints, including dysuria, gross hematuria or pyuria. NEURO: No new balance problems, peripheral weakness/paresthesias or numbness of concern. Physical Exam BP 120/72 (BP Site: Left Arm, BP Position: Sitting, BP Cuff Size: Large Adult) Pulse 102 Temp 36.9 ?C (98.5 ?F) Resp 12 Ht 154.9 cm (5' 1 ) Wt 77.1 kg (170 lb) LMP 07/15/2020 SpO2 97% BMI 32.12 kg/m? General appearance: Well appearing, alert, in no acute distress, well nourished. Skin: Skin color, texture, turgor normal, no suspicious rashes or lesions Head: Normocephalic, no masses, lesions, tenderness or abnormalities Eyes: Anicteric sclera. Pupils are equally round and reactive to light. Extraocular movements are intact. Lungs: Lungs clear to auscultation. No wheezing, rhonchi, rales Heart: RRR without murmur, gallop, or rubs. Extremities: No deformities, edema, skin discoloration, clubbing or cyanosis. Good capillary refill. ASSESSMENT/PLAN: 1. Anxiety and depression - ICD9: 300.00, 311, ICD10: F41.9, F32.A (primary diagnosis) Increased buspar medication as she says it works well for her but may need higher dose 2. Need for HPV vaccination - ICD9: V04.89, ICD10: Z23 - HPV VACCINE, 9-VALENT (GARDASIL 9) (more content not included)... [facility] 07-12-2022 History of Presen t illness Narrative Reason for Visit Patient presents with: Follow Up: 3 month follow up-weight Stella Tang is a 31 year old female who presents here today for Above Complaints.. Health Maintenance PNEUMOCOCCAL(1 - PCV) HPI She is on prozac at 20 mgs which has helped her depression. She is on buspar 3 times a day. And that works better for anxiety than prozac Symptoms: gets very anxious and has episodes where she feels an elephant on her chest, sob, chest pain which lasts for minutes to hours , poor appetite, excessive worrying, irritability, trouble relaxing. she is going through a divorce. With 3 kids. Panic attacks: yes Alcohol use: does not drink any alcohol Drug use: No Appetite: poor Stresses: Increased, divorce, Suicidal Thoughts: No suicidal ideation, intent or plan Support: yes, grandma , parents and friends. Counseling: No Personal mental health hx: has hx of depression. Social support is grandparent and parents and sibling, and she does counseling for an hour every week and that helps her some. We asked the patient to cut down her smoking as much aspossible She would also like to take an increased dose of buspar. Lost weight as she is more active and less stressed out. Patient notes she is able to take care of herself much better now than in the past. No problem-specific Assessment & Plan notes found for this encounter. PAST MEDICAL HISTORY Diagnosis Date Anemia WITH Anxiety and depression 09/07/2021 PAST SURGICAL HISTORY Procedure Laterality Date CARPAL TUNNEL 2017 right hand DELIVERY ONLY 2010 , low transverse DELIVERY ONLY 11/06/13 , low transverse DELIVERY ONLY 06/18/2019 RC/S low transverse NEXPLANON INSERTION 12/28/2013 removed TUBAL LIGATION Bilateral 06/18/2019 FAMILY HISTORY Problem Relation Age of Onset No Known Problems Mother No Known Problems Father No Known Problems Sister No Known Problems Brother Hypertension Maternal Grandmother Diabetes Maternal Grandmother Hypertension Maternal Grandfather Diabetes Maternal Grandfather Type II Heart Maternal Grandfather Kidney Disease Paternal Grandmother Hypertension Paternal Grandfather Diabetes Paternal Grandfather Type II No Known Problems Daughter No Known Problems Son Social History Tobacco Use Smoking status: Every Day Packs/day: 0.50 Years: 5.00 Pack years: 2.50 Types: Cigarettes Smokeless tobacco: Never Tobacco comments: 1 ppd started at age 18 Vaping Use Vaping Use: Never used Substance Use Topics Alcohol use: No Drug use: No Past medical history, appointments, medications, allergies reviewed. Pertinent Lab/Diagnostic Studies are reviewed and discussed today Current Outpatient Medications: montelukast (SINGULAIR) 10 mg tablet busPIRone (BUSPAR) 5 mg tablet LORazepam (ATIVAN) 0.5 mg cyclobenzaprine (FLEXERIL) 5 mg tablet FLUoxetine (PROZAC) 20 mg capsule albuterol HFA (VENTOLIN HFA) 90 mcg/actuation inhaler pantoprazole DR (PROTONIX) 40 mg tablet fluticasone-salmeterol (ADVAIR DISKUS) 250-50 mcg/dose inhaler ibuprofen (MOTRIN) 600 mg tablet etonogestrel (NEXPLANON) subdermal implant 68 mg Review of Systems CONSTITUTIONAL: No fevers, chills night sweats, unintended weight loss CARDIOVASCULAR: No chest pain, dyspnea, palpitations, orthopnea, PND, ankle edema. PULM: No dyspnea, unexplained cough. GI: No dysphagia/odynophagia, problematic reflux, constipation, diarrhea, changes in stool habits, hematochezia, melena. : No new urinary complaints, including dysuria, gross hematuria or pyuria. NEURO: No new balance problems, peripheral weakness/paresthesias or numbness of concern. Physical Exam BP 120/72 (BP Site: Left Arm, BP Position: Sitting, BP Cuff Size: Large Adult) Pulse 102 Temp 36.9 C (98.5 F) Resp 12 Ht 154.9 cm (5' 1 ) Wt 77.1 kg (170 lb) LMP 07/15/2020 SpO2 97% BMI 32.12 kg/m General appearance: Well appearing, alert, in no acute distress, well nourished. Skin: Skin color, texture, turgor normal, no suspicious rashes or lesions Head: Normocephalic, no masses, lesions, tenderness or abnormalities Eyes: Anicteric sclera. Pupils are equally round and reactive to light. Extraocular movements are intact. Lungs: Lungs clear to auscultation. No wheezing, rhonchi, rales Heart: RRR without murmur, gallop, or rubs. Extremities: No deformities, edema, skin discoloration, clubbing or cyanosis. Good capillary refill. ASSESSMENT/PLAN: 1. Anxiety and depression - ICD9: 300.00, 311, ICD10: F41.9, F32.A (primary diagnosis) Increased buspar medication as she says it works well for her but may need higher dose 2. Need for HPV vaccination - ICD9: V04.89, ICD10: Z23 - HPV VACCINE, 9-VALENT (GARDASIL 9) Jennifer Almanza MD documented in this encounter [facility] 06-28-2022 Miscellaneous Notes Patient called in for refill of Lorazepam. Advised she has one refill available at pharmacy. Cleo Suazo RN documented in this encounter [facility] 06-28-2022 Miscellaneous Notes Patient phones requesting refills as follows: Requested Prescriptions Pending Prescriptions Disp Refills montelukast (SINGULAIR) 10 mg tablet 30 tablet 5 Sig: Take 1 tablet by mouth daily at bedtime. Please review and advise. Maria Victoria Lan LPN documented in this encounter [facility] 06-23-2022 Note HNO ID: [id number] Author: Fede Hanley APRN.HOT STAMP OPERATOR Service: ? Author Type: Nurse Practitioner Type: Progress Notes Filed: 06/23/2022 7:19 PM Note Text: Chief Complaint Patient presents with: Physical: Work physical with TB test (blood work is ok) HPI Stella Tang is a 31 year old female who presents here today for Above Complaints. Stella is an established patient of Dr. South MD. She is a new patient to me today. Concerns today.. Needing routine physical for employer. Got a new job that is more flexible d/t recent changes in her life. 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 No concerns or complaints. GERD -- stable on protonix. Sore throat -- Since having strep months ago. Some difficulty swallowing intermittently. Hx of asthma and smoker. Has upcoming appt with ENT. Mood -- going through separation from . Increase in stressors with becoming single mom with 3 children. Had appointment with Dr. Almanza on 05/27 for this and buspar and ativan added to anxiety regimen prn. Pt does report improvement. Follow-up scheduled to reassess this on July [address] Almanza. Last 14 Encounter BP Readings: Date: BP: 06/23/2022 138/88 06/09/2022 148/90 04/12/2022 130/76 03/30/2022 118/78 03/18/2022 120/80 03/11/2022 122/80 02/09/2022 124/62 01/18/2022 128/62 12/24/2021 122/78 09/07/2021 120/74 07/13/2021 122/88 06/09/2021 124/82 02/27/2021 124/77 02/20/2021 122/82 Past medical history, appointments, medications, allergies reviewed. Previous Medical History PAST MEDICAL HISTORY Diagnosis Date Anemia WITH Anxiety and depression 09/07/2021 Previous Surgical History PAST SURGICAL HISTORY Procedure Laterality Date CARPAL TUNNEL 2017 right hand DELIVERY ONLY 2010 , low transverse DELIVERY ONLY 11/06/13 , low transverse DELIVERY ONLY 06/18/2019 RC/S low transverse NEXPLANON INSERTION 12/28/2013 removed TUBAL LIGATION Bilateral 06/18/2019 Family History FAMILY HISTORY Problem Relation Age of Onset No Known Problems Mother No Known Problems Father No Known Problems Sister No Known Problems Brother Hypertension Maternal Grandmother Diabetes Maternal Grandmother Hypertension Maternal Grandfather Diabetes Maternal Grandfather Type II Heart Maternal Grandfather Kidney Disease Paternal Grandmother Hypertension Paternal Grandfather Diabetes Paternal Grandfather Type II No Known Problems Daughter No Known Problems Son Patient Allergies ALLERGIES No Known Allergies Current Medications Current Outpatient Medications on File Prior to Visit Medication Sig busPIRone (BUSPAR) 5 mg tablet Take 1 tablet by mouth three times daily. LORazepam (ATIVAN) 0.5 mg Take 1 tablet by mouth three times daily as needed (anxiety) for up to 90 days. cyclobenzaprine (FLEXERIL) 5 mg tablet Take 1-2 tablets by mouth three times daily. FLUoxetine (PROZAC) 20 mg capsule Take 1 pill daily for 14 days and then increase to 2 pills a day albuterol HFA (VENTOLIN HFA) 90 mcg/actuation inhaler Inhale 2 Puffs as instructed every 4 hours as needed for wheezing/shortness of breath. montelukast (SINGULAIR) 10 mg tablet Take 1 tablet by mouth daily at bedtime. pantoprazole DR (PROTONIX) 40 mg tablet Take 1 tablet by mouth once daily. fluticasone-salmeterol (ADVAIR DISKUS) 250-50 mcg/dose inhaler Inhale 1 Puff as instructed twice daily. RINSE AND GARGLE MOUTH WITH WATER AFTER EACH USE. ibuprofen (MOTRIN) 600 mg tablet Take 1 tablet by mouth every 6 hours as needed for pain. etonogestrel (NEXPLANON) subdermal implant 68 mg 1 Each by SUBDERMAL route as directed. naproxen (NAPROSYN) 500 mg tablet Take 1 tablet by mouth twice daily as needed (for pain/inflammation). Take with food. (Patient not taking: No sig reported) No current facility-administered medications on file prior to visit. Social History Social History Tobacco Use Smoking status: Every Day Packs/day: 0.50 Years: 5.00 Pack years: 2.50 Types: Cigarettes Smokeless tobacco: Never Tobacco comments: 1 ppd started at age 18 Vaping Use Vaping Use: Never used Substance Use Topics Alcohol use: No Drug use: No REVIEW OF SYSTEMS: as above Reviewed relevant PMHx, PSHx, Social Hx, current medications and allergies. Review of Symptoms REVIEW OF SYSTEMS See HPI. All other systems are negative. EXAM: BP 138/88 Pulse 95 Ht 154.9 cm (5' 1 ) Wt 79.8 kg (176 lb) LMP 07/15/2020 SpO2 99% BMI 33.25 kg/m? General Appearance: Well appearing, alert, in no acute distress, well-hydrated, well nourished.. Skin: Skin color, texture, turgor normal, no suspicious rashes or lesions. Head: Normocephalic, no masses, lesions, tenderness or abnormalities. Nose/Sinuses: Nares normal, septum midline, mucosa normal, no drainage or sinus tenderness. Oropharynx: Lips, mucosa, and tongue normal, teeth a (more content not included)... [facility] 06-23-2022 History of Presen t illness Narrative Chief Complaint Patient presents with: Physical: Work physical with TB test (blood work is ok) HPI Stella Tang is a 31 year old female who presents here today for Above Complaints. Stella is an established patient of Dr. South MD. She is a new patient to me today. Concerns today.. Needing routine physical for employer. Got a new job that is more flexible d/t recent changes in her life. 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 No concerns or complaints. GERD -- stable on protonix. Sore throat -- Since having strep months ago. Some difficulty swallowing intermittently. Hx of asthma and smoker. Has upcoming appt with ENT. Mood -- going through separation from . Increase in stressors with becoming single mom with 3 children. Had appointment with Dr. Almanza on 05/27 for this and buspar and ativan added to anxiety regimen prn. Pt does report improvement. Follow-up scheduled to reassess this on July [address] Almanza. Last 14 Encounter BP Readings: Date: BP: 06/23/2022 138/88 06/09/2022 148/90 04/12/2022 130/76 03/30/2022 118/78 03/18/2022 120/80 03/11/2022 122/80 02/09/2022 124/62 01/18/2022 128/62 12/24/2021 122/78 09/07/2021 120/74 07/13/2021 122/88 06/09/2021 124/82 02/27/2021 124/77 02/20/2021 122/82 Past medical history, appointments, medications, allergies reviewed. Previous Medical History PAST MEDICAL HISTORY Diagnosis Date Anemia WITH Anxiety and depression 09/07/2021 Previous Surgical History PAST SURGICAL HISTORY Procedure Laterality Date CARPAL TUNNEL 2017 right hand DELIVERY ONLY 2010 , low transverse DELIVERY ONLY 11/06/13 , low transverse DELIVERY ONLY 06/18/2019 RC/S low transverse NEXPLANON INSERTION 12/28/2013 removed TUBAL LIGATION Bilateral 06/18/2019 Family History FAMILY HISTORY Problem Relation Age of Onset No Known Problems Mother No Known Problems Father No Known Problems Sister No Known Problems Brother Hypertension Maternal Grandmother Diabetes Maternal Grandmother Hypertension Maternal Grandfather Diabetes Maternal Grandfather Type II Heart Maternal Grandfather Kidney Disease Paternal Grandmother Hypertension Paternal Grandfather Diabetes Paternal Grandfather Type II No Known Problems Daughter No Known Problems Son Patient Allergies ALLERGIES No Known Allergies Current Medications Current Outpatient Medications on File Prior to Visit Medication Sig busPIRone (BUSPAR) 5 mg tablet Take 1 tablet by mouth three times daily. LORazepam (ATIVAN) 0.5 mg Take 1 tablet by mouth three times daily as needed (anxiety) for up to 90 days. cyclobenzaprine (FLEXERIL) 5 mg tablet Take 1-2 tablets by mouth three times daily. FLUoxetine (PROZAC) 20 mg capsule Take 1 pill daily for 14 days and then increase to 2 pills a day albuterol HFA (VENTOLIN HFA) 90 mcg/actuation inhaler Inhale 2 Puffs as instructed every 4 hours as needed for wheezing/shortness of breath. montelukast (SINGULAIR) 10 mg tablet Take 1 tablet by mouth daily at bedtime. pantoprazole DR (PROTONIX) 40 mg tablet Take 1 tablet by mouth once daily. fluticasone-salmeterol (ADVAIR DISKUS) 250-50 mcg/dose inhaler Inhale 1 Puff as instructed twice daily. RINSE AND GARGLE MOUTH WITH WATER AFTER EACH USE. ibuprofen (MOTRIN) 600 mg tablet Take 1 tablet by mouth every 6 hours as needed for pain. etonogestrel (NEXPLANON) subdermal implant 68 mg 1 Each by SUBDERMAL route as directed. naproxen (NAPROSYN) 500 mg tablet Take 1 tablet by mouth twice daily as needed (for pain/inflammation). Take with food. (Patient not taking: No sig reported) No current facility-administered medications on file prior to visit. Social History Social History Tobacco Use Smoking status: Every Day Packs/day: 0.50 Years: 5.00 Pack years: 2.50 Types: Cigarettes Smokeless tobacco: Never Tobacco comments: 1 ppd started at age 18 Vaping Use Vaping Use: Never used Substance Use Topics Alcohol use: No Drug use: No REVIEW OF SYSTEMS: as above Reviewed relevant PMHx, PSHx, Social Hx, current medications and allergies. Review of Symptoms REVIEW OF SYSTEMS See HPI. All other systems are negative. EXAM: BP 138/88 Pulse 95 Ht 154.9 cm (5' 1 ) Wt 79.8 kg (176 lb) LMP 07/15/2020 SpO2 99% BMI 33.25 kg/m General Appearance: Well appearing, alert, in no acute distress, well-hydrated, well nourished.. Skin: Skin color, texture, turgor normal, no suspicious rashes or lesions. Head: Normocephalic, no masses, lesions, tenderness or abnormalities. Nose/Sinuses: Nares normal, septum midline, mucosa normal, no drainage or sinus tenderness. Oropharynx: Lips, mucosa, and tongue normal, teeth and gums normal, oropharynx normal. Neck: Supple, no adenopathy; thyroid symmetric, normal size, no bruits. Back:no pain to palpation of vertebrae, good flexion and extension, good range of motion, no muscle tenderness, reflexes are 2+ and symmetric, motor and sensory appear to be normal, negative SLR test, no evidence of scoliosis Lungs: Lungs clear to auscultation. No wheezing, rhonchi, rales.. Heart: RRR without murmur, gallop, or rubs. No ectopy. Abdomen: Normal abdominal exam, Abdomen soft, non-tender. Bowel sounds normal. No masses, organomegaly. Neurologic: Gait normal. Reflexes normal and symmetric. Sensation grossly intact.. Health Maintenance List PNEUMOCOCCAL(1 - PCV) Never done COVID-19 VACCINE(3 - Booster for Moderna series) due on 08/06/2021 INFLUENZA(Season Ended) due on 11/12/2022 PAP TESTING due on 03/18/2027 HPV TESTING due on 03/18/2027 DTAP,TDAP,TD(8 - Td or Tdap) due on 03/30/2029 HEPATITIS B Completed HEPATITIS C SCREENING Completed HIV SCREENING Completed ASSESSMENT/PLAN: 1. Wellness examination - ICD9: V70.0, ICD10: Z00.00 (primary diagnosis) - Counseled on healthy diet and regular exercise - Recommend vitamin containing 0.4 mg of folic acid - Calcium intake with supplements or by diet of 1000 mg/day for under 50, [id number] mg/day for 50+ - Smoking cessation encouraged; discussed risks to health and quitting strategies. Patient is not ready to quit - Depression screening tool completed and reviewed with patient. Based on score and interview, patient is already diagnosed with depression and recommended no further intervention at this time and continuing current plan of care. - Follow up for annual exam in one year - BLOOD TB SCREEN - COMP METABOLIC PANEL - CBC - LIPID PANEL BASIC - HGB A1C 2. Anxiety and depression - ICD9: 300.00, 311, ICD10: F41.9, F32.A Improving. Numerous acute increase in stressors. Continue with follow-up with Dr. Almanza on July 12. Continue on current regimen. 3. Dysphagia, unspecified type - ICD9: 787.20, ICD10: R13.10 Thyroid PE WNL. TSH to rule out thyroid abnormalities. Continue with ENT appointment as scheduled. No concerns for infection/URI/strep. - TSH BLD 4. Elevated BP without diagnosis of hypertension - ICD9: 796.2, ICD10: R03.0 Possible causes -- smoking prior to appointment and acute increase in anxiety recently. - Encouraged dietary sodium restriction/DASH diet - Recommended regular aerobic exercise. - Recommend home blood pressure monitoring, to bring results in on next visit - Follow up in 1 month for BP recheck. - Goal of BP <130/80 RTO as scheduled with PCP team -- sooner if needed. Prescription instructions reviewed with patient as applicable. Potential red flag symptoms discussed with the patient. Reviewed appropriate action plan to take if red flag symptoms occur. Patient agreeable to treatment plan. Fede Rios APRN.CNP [id number] [place] [address] documented in this encounter [facility] 06-09-2022 Note HNO ID: [id number] Author: Deborah Tobar APRN.CNP Service: ? Author Type: Nurse Practitioner Type: Progress Notes Filed: 06/09/2022 8:31 PM Note Text: Subjective HPI Stella Tang is a 31 year old female who presents with sore throat x 2 weeks, headache and sinus pressure for 3 days. No fever. She has not taken any medication today. She has not had any known sick contacts. Review of Systems Constitutional: Negative for chills and fever. HENT: Positive for congestion and sore throat. Respiratory: Positive for cough. Negative for shortness of breath. Cardiovascular: Negative for chest pain. Gastrointestinal: Negative for diarrhea, nausea and vomiting. Musculoskeletal: Negative for myalgias. BP 148/90 Pulse (!) 122 Temp 36.4 ?C (97.6 ?F) Resp 21 Wt 81.1 kg (178 lb 12.8 oz) LMP 07/15/2020 SpO2 99% BMI 33.78 kg/m? PAST MEDICAL HISTORY Diagnosis Date Anemia WITH Anxiety and depression 09/07/2021 PAST SURGICAL HISTORY Procedure Laterality Date CARPAL TUNNEL 2017 right hand DELIVERY ONLY 2010 , low transverse DELIVERY ONLY 11/06/13 , low transverse DELIVERY ONLY 06/18/2019 RC/S low transverse NEXPLANON INSERTION 12/28/2013 removed TUBAL LIGATION Bilateral 06/18/2019 ALLERGIES Patient has no known allergies. MEDICATIONS busPIRone (BUSPAR) 5 mg tablet Take 1 tablet by mouth three times daily. LORazepam (ATIVAN) 0.5 mg Take 1 tablet by mouth three times daily as needed (anxiety) for up to 90 days. cyclobenzaprine (FLEXERIL) 5 mg tablet Take 1-2 tablets by mouth three times daily. FLUoxetine (PROZAC) 20 mg capsule Take 1 pill daily for 14 days and then increase to 2 pills a day montelukast (SINGULAIR) 10 mg tablet Take 1 tablet by mouth daily at bedtime. pantoprazole DR (PROTONIX) 40 mg tablet Take 1 tablet by mouth once daily. fluticasone-salmeterol (ADVAIR DISKUS) 250-50 mcg/dose inhaler Inhale 1 Puff as instructed twice daily. RINSE AND GARGLE MOUTH WITH WATER AFTER EACH USE. ibuprofen (MOTRIN) 600 mg tablet Take 1 tablet by mouth every 6 hours as needed for pain. etonogestrel (NEXPLANON) subdermal implant 68 mg 1 Each by SUBDERMAL route as directed. naproxen (NAPROSYN) 500 mg tablet Take 1 tablet by mouth twice daily as needed (for pain/inflammation). Take with food. (Patient not taking: Reported on 06/09/2022) albuterol HFA (VENTOLIN HFA) 90 mcg/actuation inhaler Inhale 2 Puffs as instructed every 4 hours as needed for wheezing/shortness of breath. FAMILY HISTORY Problem Relation Age of Onset No Known Problems Mother No Known Problems Father No Known Problems Sister No Known Problems Brother Hypertension Maternal Grandmother Diabetes Maternal Grandmother Hypertension Maternal Grandfather Diabetes Maternal Grandfather Type II Heart Maternal Grandfather Kidney Disease Paternal Grandmother Hypertension Paternal Grandfather Diabetes Paternal Grandfather Type II No Known Problems Daughter No Known Problems Son Social History Tobacco Use Smoking status: Every Day Packs/day: 0.50 Years: 5.00 Pack years: 2.50 Types: Cigarettes Smokeless tobacco: Never Tobacco comments: 1 ppd started at age 18 Vaping Use Vaping Use: Never used Substance Use Topics Alcohol use: No Drug use: No Objective Physical Exam Vitals and nursing note reviewed. Constitutional: General: She is not in acute distress. Appearance: Normal appearance. She is not toxic-appearing. HENT: Right Ear: Tympanic membrane, ear canal and external ear normal. Left Ear: Tympanic membrane, ear canal and external ear normal. Nose: Congestion present. Mouth/Throat: Mouth: Mucous membranes are moist. Pharynx: Oropharynx is clear. Uvula midline. No oropharyngeal exudate or posterior oropharyngeal erythema. Cardiovascular: Rate and Rhythm: Regular rhythm. Tachycardia present. Heart sounds: Normal heart sounds. Pulmonary: Effort: Pulmonary effort is normal. No respiratory distress. Breath sounds: Normal breath sounds. No wheezing or rales. Musculoskeletal: Cervical back: Neck supple. Lymphadenopathy: Cervical: No cervical adenopathy. Skin: General: Skin is warm and dry. Findings: No erythema or rash. Neurological: Mental Status: She is alert. ASSESSMENT/PLAN: 1. Sore throat - ICD9: 462, ICD10: J02.9 (primary diagnosis) - suspect viral vs allergic - Alere Strep Test negative, no culture pending - Discussed supportive care treatment with fluids, rest and analgesia. - STREP A MOLECULAR (POC) 2. Viral URI with cough - ICD9: 465.9, ICD10: J06.9 - Discussed viral etiology and rationale for treatment. - Symptomatic treatment with prn analgesia - Supportive care with fluids and rest - Follow-up with your PCP in 3-5 days if symptoms have not improved or sooner if symptoms worsen - Discussed red flags and need for immediate medical evaluatio (more content not included)... [facility] 06-09-2022 History of Presen t illness Narrative Subjective HPI Stella Tang is a 31 year old female who presents with sore throat x 2 weeks, headache and sinus pressure for 3 days. No fever. She has not taken any medication today. She has not had any known sick contacts. Review of Systems Constitutional: Negative for chills and fever. HENT: Positive for congestion and sore throat. Respiratory: Positive for cough. Negative for shortness of breath. Cardiovascular: Negative for chest pain. Gastrointestinal: Negative for diarrhea, nausea and vomiting. Musculoskeletal: Negative for myalgias. BP 148/90 Pulse (!) 122 Temp 36.4 C (97.6 F) Resp 21 Wt 81.1 kg (178 lb 12.8 oz) LMP 07/15/2020 SpO2 99% BMI 33.78 kg/m PAST MEDICAL HISTORY Diagnosis Date Anemia WITH Anxiety and depression 09/07/2021 PAST SURGICAL HISTORY Procedure Laterality Date CARPAL TUNNEL 2017 right hand DELIVERY ONLY 2010 , low transverse DELIVERY ONLY 11/06/13 , low transverse DELIVERY ONLY 06/18/2019 RC/S low transverse NEXPLANON INSERTION 12/28/2013 removed TUBAL LIGATION Bilateral 06/18/2019 ALLERGIES Patient has no known allergies. MEDICATIONS busPIRone (BUSPAR) 5 mg tablet Take 1 tablet by mouth three times daily. LORazepam (ATIVAN) 0.5 mg Take 1 tablet by mouth three times daily as needed (anxiety) for up to 90 days. cyclobenzaprine (FLEXERIL) 5 mg tablet Take 1-2 tablets by mouth three times daily. FLUoxetine (PROZAC) 20 mg capsule Take 1 pill daily for 14 days and then increase to 2 pills a day montelukast (SINGULAIR) 10 mg tablet Take 1 tablet by mouth daily at bedtime. pantoprazole DR (PROTONIX) 40 mg tablet Take 1 tablet by mouth once daily. fluticasone-salmeterol (ADVAIR DISKUS) 250-50 mcg/dose inhaler Inhale 1 Puff as instructed twice daily. RINSE AND GARGLE MOUTH WITH WATER AFTER EACH USE. ibuprofen (MOTRIN) 600 mg tablet Take 1 tablet by mouth every 6 hours as needed for pain. etonogestrel (NEXPLANON) subdermal implant 68 mg 1 Each by SUBDERMAL route as directed. naproxen (NAPROSYN) 500 mg tablet Take 1 tablet by mouth twice daily as needed (for pain/inflammation). Take with food. (Patient not taking: Reported on 06/09/2022) albuterol HFA (VENTOLIN HFA) 90 mcg/actuation inhaler Inhale 2 Puffs as instructed every 4 hours as needed for wheezing/shortness of breath. FAMILY HISTORY Problem Relation Age of Onset No Known Problems Mother No Known Problems Father No Known Problems Sister No Known Problems Brother Hypertension Maternal Grandmother Diabetes Maternal Grandmother Hypertension Maternal Grandfather Diabetes Maternal Grandfather Type II Heart Maternal Grandfather Kidney Disease Paternal Grandmother Hypertension Paternal Grandfather Diabetes Paternal Grandfather Type II No Known Problems Daughter No Known Problems Son Social History Tobacco Use Smoking status: Every Day Packs/day: 0.50 Years: 5.00 Pack years: 2.50 Types: Cigarettes Smokeless tobacco: Never Tobacco comments: 1 ppd started at age 18 Vaping Use Vaping Use: Never used Substance Use Topics Alcohol use: No Drug use: No Objective Physical Exam Vitals and nursing note reviewed. Constitutional: General: She is not in acute distress. Appearance: Normal appearance. She is not toxic-appearing. HENT: Right Ear: Tympanic membrane, ear canal and external ear normal. Left Ear: Tympanic membrane, ear canal and external ear normal. Nose: Congestion present. Mouth/Throat: Mouth: Mucous membranes are moist. Pharynx: Oropharynx is clear. Uvula midline. No oropharyngeal exudate or posterior oropharyngeal erythema. Cardiovascular: Rate and Rhythm: Regular rhythm. Tachycardia present. Heart sounds: Normal heart sounds. Pulmonary: Effort: Pulmonary effort is normal. No respiratory distress. Breath sounds: Normal breath sounds. No wheezing or rales. Musculoskeletal: Cervical back: Neck supple. Lymphadenopathy: Cervical: No cervical adenopathy. Skin: General: Skin is warm and dry. Findings: No erythema or rash. Neurological: Mental Status: She is alert. ASSESSMENT/PLAN: 1. Sore throat - ICD9: 462, ICD10: J02.9 (primary diagnosis) - suspect viral vs allergic - Alere Strep Test negative, no culture pending - Discussed supportive care treatment with fluids, rest and analgesia. - STREP A MOLECULAR (POC) 2. Viral URI with cough - ICD9: 465.9, ICD10: J06.9 - Discussed viral etiology and rationale for treatment. - Symptomatic treatment with prn analgesia - Supportive care with fluids and rest - Follow-up with your PCP in 3-5 days if symptoms have not improved or sooner if symptoms worsen - Discussed red flags and need for immediate medical evaluation if any occur. - Discussed supportive care treatment with fluids, rest and analgesia. - Discussed expected course of illness Deborah Tobar APRN.CNP documented in this encounter [facility] 06-09-2022 Instructions Deborah Tobar APRN.CNP - 06/09/2022 8:02 PM EDT ASSESSMENT/PLAN: 1. Sore throat - ICD9: 462, ICD10: J02.9 (primary diagnosis) - suspect viral vs allergic - Alere Strep Test negative, no culture pending - Discussed supportive care treatment with fluids, rest and analgesia. - STREP A MOLECULAR (POC) 2. Viral URI with cough - ICD9: 465.9, ICD10: J06.9 - Discussed viral etiology and rationale for treatment. - Symptomatic treatment with prn analgesia - Supportive care with fluids and rest - Follow-up with your PCP in 3-5 days if symptoms have not improved or sooner if symptoms worsen - Discussed red flags and need for immediate medical evaluation if any occur. - Discussed supportive care treatment with fluids, rest and analgesia. - Discussed expected course of illness Deborah Tobar APRN.CNP SORE THROAT INSTRUCTIONS SORE THROAT OVERVIEW - Sore throat is a common problem during childhood, and is usually the result of a bacterial or viral infection. Although sore throat usually resolves without complications, it sometimes requires treatment with an antibiotic. There are some less common causes of sore throat that are serious or even life-threatening. This topic will discuss the most common causes and treatments of sore throat in children, as well as the warning signs of more serious conditions. SORE THROAT CAUSES - The most likely cause of a child's sore throat depends upon the child's age, the season, and the geographic area. While viruses are the most common cause of sore throat, bacteria are another common cause. Bacteria and viruses are spread from one person to another through hand contact. Hands get contaminated when the sick individual touches their nose or mouth and then touches another person directly (neep-gw-zwyi contact) or indirectly ([id number]-xg-[id number], such as doorknob, telephone, toys). It is difficult to determine the cause of sore throat based upon symptoms alone; an examination and laboratory test are recommended in most cases Viruses - There are many viruses that can cause pain and swelling of the throat. The most common include viruses that cause sore throat as part of an upper respiratory infection, such as the common cold. Other viruses that cause sore throat include influenza, adenovirus, and Vita-Simpson virus (the cause of mononucleosis). Symptoms - Symptoms that may occur with a viral infection can include a runny nose and congestion, irritation or redness of the eyes, cough, hoarseness, soreness in the roof of the mouth, a skin rash, or diarrhea. In addition, children with viral infections may have a fever and may feel miserable. A high fever does not necessarily mean that the child has a bacterial infection. Group A streptococcus - Group A streptococcus (GAS) is the name of the bacterium that causes strep throat. Although other bacteria can cause a sore throat, GAS is the most common bacterial cause; up to 30 percent of children with a sore throat will have GAS. Strep throat usually occurs during the winter and early spring, and is most common in school-age children and their younger siblings. Symptoms - Symptoms of strep throat in children older than 3 years often develop suddenly and include fever (temperature ?100.4 F or 38 C), headache, abdominal pain, nausea, and vomiting. Other symptoms can include swollen glands in the neck, white patches of pus in the back or sides of the throat, small red spots on the roof of the mouth, and swelling of the uvula. A cough and cold are not commonly seen in children with strep throat. Strep throat is uncommon in children younger than age 2 to 3 years. However, GAS infection can occur in younger children, and may cause a runny nose and congestion that is prolonged, low-grade fever (?101 F or 38.3 C), and tender glands in the neck. Infants younger than 1 year may be fussy and have a decreased appetite and low-grade fever. SORE THROAT TREATMENT - The treatment of sore throat depends upon the cause; strep throat is treated with an antibiotic while viral pharyngitis is treated with rest, pain relievers, and other measures to reduce symptoms. Strep throat - Strep throat is usually treated with an antibiotic, such as penicillin, or an antibiotic similar to penicillin (eg, amoxicillin). Children who are allergic to penicillin will be given an alternate antibiotic. The antibiotic is usually given in pill or liquid form two or three times per day. A one-time injection is also available, and may be recommended if a child is unwilling to take an oral medication. After completing 24 hours of antibiotics, the child is no longer contagious and may return to school. Symptoms usually improve within 1 to 2 days. However, it is important for the child to finish the entire course of treatment (usually 10 days). If a child does not begin to improve or worsens within 3 days, the child should be reevaluated. Throat pain can be treated with a non-prescription pain medication, if needed. (See 'Pain medications' below.) In addition, parents should monitor their child for dehydration, which can develop if the child is not willing to drink or eat due to a sore throat. (See 'Monitor for dehydration' below.) Viral throat pain - Sore throat caused by viral infections usually last 4 to 5 days. During this time, treatments to reduce pain may be helpful but will not help to eliminate the virus. Antibiotics do not improve throat pain caused by a virus and are not recommended. A child with a viral infection is usually allowed to return to school when there has been no fever for 24 hours and the child feels well enough to pay attention. Pain medications - Throat pain can be treated with a mild pain reliever such as acetaminophen (Tylenol ) or a non-steroidal anti-inflammatory agent such as ibuprofen (Motrin ). These medications should be dosed according to weight, not age. Aspirin is not recommended for children <18 years due to the risk of a potentially serious condition known as Jennifer syndrome. Monitor for dehydration - Some children with a sore throat are reluctant to drink or eat due to pain. Drinking less fluid can lead to dehydration. To reduce the risk of dehydration, parents can offer warm or cold liquids. (See 'Other interventions' below.) Signs and symptoms of mild dehydration include a slightly dry mouth, increased thirst, and decreased urine output (one wet diaper or void in six hours). Signs of moderate or severe dehydration include decreased urine output (less than one wet diaper or void in six hours), lack of tears when crying, dry mouth, and sunken eyes. A child who is moderately or severely dehydrated should be evaluated by a healthcare provider as soon as possible to determine if treatment is needed. Oral rinses- Salt-water gargles are an old stand-by for relief of throat pain. It is not clear if this treatment is effective, but it is unlikely to be harmful. Most recipes suggest 1/4 to 1/2 teaspoon of salt per cup (8 ounces) of warm water. The water should be gargled and then spit out (not swallowed). Children younger than six to eight years are not able to gargle properly. An oral rinse composed of equal parts of diphenhydramine (Benadryl liquid) and Maalox (magnesium hydroxide, aluminum hydroxide, and simethicone) may be helpful for pain caused by a sore mouth or ulcers in the mouth. Children older than six to eight years may swish and spit (not swallow) the mixture. Sprays - Sprays containing topical anesthetics are available to treat sore throat. However, such sprays are no more effective than sucking on hard candy. In addition, a common anesthetic ingredient, benzocaine, can cause allergic reactions. We do not recommend throat sprays for children. Lozenges - A variety of medicated throat lozenges are available to relieve dryness or pain. However, it is not clear that lozenges work any better than hard candy. We do not recommend throat lozenges for children, especially children younger than 3 to 4 years, who can choke. Sucking on hard candy may provide some relief for children older than 3 to 4 years, who are not at risk for choking. Other interventions - Other interventions include sipping warm beverages (eg, honey or lemon tea, chicken soup), cold beverages, or eating cold or frozen desserts (eg, ice cream, popsicles). These treatments are safe for children. Honey should not be given to children younger than 12 months due to the potential risk of botulism poisoning. Alternative therapies - Health food stores, vitamin outlets, and Internet Web sites offer alternative treatments for relief of sore throat pain. We do not recommend these treatments due to the risks of contamination with pesticides/herbicides, inaccurate labeling and dosing information, and a lack of studies showing that these treatments are safe and effective. SORE THROAT PREVENTION - Hand washing is an essential and highly effective way to prevent the spread of infection. Hands should be wet with water and plain soap, and rubbed together for 15 to 30 seconds. Special attention should be paid to the fingernails, between the fingers, and the wrists. Hands should be rinsed thoroughly, and dried with a single use towel. Alcohol-based hand rubs are a good alternative for disinfecting hands if a sink is not available. Hand rubs should be spread over the entire surface of hands, fingers, and wrists until dry, and may be used several times. These rubs can be used repeatedly without skin irritation or loss of effectiveness. Hand rubs are available as a liquid or wipe in small, portable sizes that are easy to carry in a pocket or handbag. When a sink is available, visibly soiled hands should be washed with soap and water. Hands should be washed after coughing, blowing the nose or sneezing. While it is not always possible to limit contact with a person who is sick, avoiding touching the eyes, nose, or mouth after direct contact can help to prevent the spread of infection. In addition, tissues should be used to cover the mouth when sneezing or coughing. These used tissues should be disposed of promptly. Sneezing/coughing into the sleeve of one's clothing (at the inner elbow) is another means of containing sprays of saliva and secretions and has the advantage of not contaminating the hands. WHEN TO SEEK HELP - Parents of a child with throat pain and one or more of the following should contact their healthcare provider immediately: Difficulty swallowing or breathing Excessive drooling in an or young child Temperature ?101 F or 38.3 C Swelling of the neck Child is unable or unwilling to drink or eat Voice sounds muffled Child has a stiff neck or difficulty opening the mouth WHERE TO GET MORE INFORMATION - Your child's healthcare provider is the best source of information for questions and concerns related to your child's medical problem. This article will be updated as needed every four months on our web site ([email or web address]). Information below was obtained from Up to date Last literature review version 19.2: July 2010 This topic last updated: October 29, 2009 documented in this encounter [facility] 05-27-2022 Note HNO ID: [id number] Author: Jennifer Almanza MD Service: ? Author Type: Physician Type: Progress Notes Filed: 05/27/2022 1:24 PM Note Text: Chief Complaint Patient presents with: Anxiety HPI Stella Tang is a 31 year old female who is contacted today for a virtual/telemedicine visit. This is an established patient of Dr. Jennifer Almanza MD. States her anxiety is not controlled She is on prozac at 20 mgs which has helped her depression Symptoms: gets very anxious and has episodes where she feels an elephant on her chest, sob, chest pain which lasts for minutes to hours , poor appetite, excessive worrying, irritability, trouble relaxing. she is going through a divorce. With 3 kids. Panic attacks: yes Alcohol use: does not drink any alcohol Drug use: No Appetite: poor Stresses: Increased, divorce, Suicidal Thoughts: No suicidal ideation, intent or plan Support: yes, grandma , parents and friends. Counseling: No Personal mental health hx: has hx of depression. Past medical history, appointments, medications, allergies reviewed 05/27/2022 Previous Medical History PAST MEDICAL HISTORY Diagnosis Date Anemia WITH Anxiety and depression 09/07/2021 Previous Surgical History PAST SURGICAL HISTORY Procedure Laterality Date CARPAL TUNNEL 2017 right hand DELIVERY ONLY 2010 , low transverse DELIVERY ONLY 11/06/13 , low transverse DELIVERY ONLY 06/18/2019 RC/S low transverse NEXPLANON INSERTION 12/28/2013 removed TUBAL LIGATION Bilateral 06/18/2019 Family History FAMILY HISTORY Problem Relation Age of Onset No Known Problems Mother No Known Problems Father No Known Problems Sister No Known Problems Brother Hypertension Maternal Grandmother Diabetes Maternal Grandmother Hypertension Maternal Grandfather Diabetes Maternal Grandfather Type II Heart Maternal Grandfather Kidney Disease Paternal Grandmother Hypertension Paternal Grandfather Diabetes Paternal Grandfather Type II No Known Problems Daughter No Known Problems Son Patient Allergies ALLERGIES No Known Allergies Current Medications Current Outpatient Medications on File Prior to Visit Medication Sig cyclobenzaprine (FLEXERIL) 5 mg tablet Take 1-2 tablets by mouth three times daily. naproxen (NAPROSYN) 500 mg tablet Take 1 tablet by mouth twice daily as needed (for pain/inflammation). Take with food. FLUoxetine (PROZAC) 20 mg capsule Take 1 pill daily for 14 days and then increase to 2 pills a day albuterol HFA (VENTOLIN HFA) 90 mcg/actuation inhaler Inhale 2 Puffs as instructed every 4 hours as needed for wheezing/shortness of breath. montelukast (SINGULAIR) 10 mg tablet Take 1 tablet by mouth daily at bedtime. pantoprazole DR (PROTONIX) 40 mg tablet Take 1 tablet by mouth once daily. fluticasone-salmeterol (ADVAIR DISKUS) 250-50 mcg/dose inhaler Inhale 1 Puff as instructed twice daily. RINSE AND GARGLE MOUTH WITH WATER AFTER EACH USE. ibuprofen (MOTRIN) 600 mg tablet Take 1 tablet by mouth every 6 hours as needed for pain. etonogestrel (NEXPLANON) subdermal implant 68 mg 1 Each by SUBDERMAL route as directed. No current facility-administered medications on file prior to visit. Social History Social History Tobacco Use Smoking status: Every Day Packs/day: 0.50 Years: 5.00 Pack years: 2.50 Types: Cigarettes Smokeless tobacco: Never Tobacco comments: 1 ppd started at age 18 Vaping Use Vaping Use: Never used Substance Use Topics Alcohol use: No Drug use: No Review of Symptoms GENERAL: No weight loss. No malaise or fevers HEENT: Negative for headaches No eye discharge or redness No earaches or drainage No sore throat Nose POS/NEG for congestion and nasal discharge NECK: Negative for lumps, pain or significant neck swelling RESPIRATORY: No wheezing, SOB, Difficulty breathing. CARDIOVASCULAR: Negative for chest pain GI: No nausea, vomiting, or diarrhea MUSCULOSKELETAL: Negative for muscle aches or bodyaches SKIN: Negative for lesions, rash, and itching Neuro: No lightheadedness or dizziness EXAM: LMP 07/15/2020 Deferred physical exam as visit was completed over the phone. Virtual visit completed using video, limited exam completed. General Appearance: Well appearing, alert, in no acute distress, well-hydrated, well nourished. Skin: Skin color Head: Normocephalic Psych: Attitude - cooperative, easily engaged in conversation Appearance - normal, hygiene and grooming appropriate Affect - euthymic, normal mood Mental status: Alert, attentive. Speech is clear and fluent with good repetition, comprehension Coordination: No abnormal or extraneous movements. Gait/Stance: Posture is normal. Health Maintenance List PNEUMOCOCCAL(1 - PCV) Never done COVID-19 VACCINE(3 - Booster for Moderna series) due on 08/06/2021 INFLUENZA(1) due on 09/10/2022 PAP TESTING (more content not included)... [facility] 05-27-2022 History of Presen t illness Narrative Chief Complaint Patient presents with: Anxiety HPI Stella Tang is a 31 year old female who is contacted today for a virtual/telemedicine visit. This is an established patient of Dr. Jennifer Almanza MD. States her anxiety is not controlled She is on prozac at 20 mgs which has helped her depression Symptoms: gets very anxious and has episodes where she feels an elephant on her chest, sob, chest pain which lasts for minutes to hours , poor appetite, excessive worrying, irritability, trouble relaxing. she is going through a divorce. With 3 kids. Panic attacks: yes Alcohol use: does not drink any alcohol Drug use: No Appetite: poor Stresses: Increased, divorce, Suicidal Thoughts: No suicidal ideation, intent or plan Support: yes, grandma , parents and friends. Counseling: No Personal mental health hx: has hx of depression. Past medical history, appointments, medications, allergies reviewed 05/27/2022 Previous Medical History PAST MEDICAL HISTORY Diagnosis Date Anemia WITH Anxiety and depression 09/07/2021 Previous Surgical History PAST SURGICAL HISTORY Procedure Laterality Date CARPAL TUNNEL 2017 right hand DELIVERY ONLY 2010 , low transverse DELIVERY ONLY 11/06/13 , low transverse DELIVERY ONLY 06/18/2019 RC/S low transverse NEXPLANON INSERTION 12/28/2013 removed TUBAL LIGATION Bilateral 06/18/2019 Family History FAMILY HISTORY Problem Relation Age of Onset No Known Problems Mother No Known Problems Father No Known Problems Sister No Known Problems Brother Hypertension Maternal Grandmother Diabetes Maternal Grandmother Hypertension Maternal Grandfather Diabetes Maternal Grandfather Type II Heart Maternal Grandfather Kidney Disease Paternal Grandmother Hypertension Paternal Grandfather Diabetes Paternal Grandfather Type II No Known Problems Daughter No Known Problems Son Patient Allergies ALLERGIES No Known Allergies Current Medications Current Outpatient Medications on File Prior to Visit Medication Sig cyclobenzaprine (FLEXERIL) 5 mg tablet Take 1-2 tablets by mouth three times daily. naproxen (NAPROSYN) 500 mg tablet Take 1 tablet by mouth twice daily as needed (for pain/inflammation). Take with food. FLUoxetine (PROZAC) 20 mg capsule Take 1 pill daily for 14 days and then increase to 2 pills a day albuterol HFA (VENTOLIN HFA) 90 mcg/actuation inhaler Inhale 2 Puffs as instructed every 4 hours as needed for wheezing/shortness of breath. montelukast (SINGULAIR) 10 mg tablet Take 1 tablet by mouth daily at bedtime. pantoprazole DR (PROTONIX) 40 mg tablet Take 1 tablet by mouth once daily. fluticasone-salmeterol (ADVAIR DISKUS) 250-50 mcg/dose inhaler Inhale 1 Puff as instructed twice daily. RINSE AND GARGLE MOUTH WITH WATER AFTER EACH USE. ibuprofen (MOTRIN) 600 mg tablet Take 1 tablet by mouth every 6 hours as needed for pain. etonogestrel (NEXPLANON) subdermal implant 68 mg 1 Each by SUBDERMAL route as directed. No current facility-administered medications on file prior to visit. Social History Social History Tobacco Use Smoking status: Every Day Packs/day: 0.50 Years: 5.00 Pack years: 2.50 Types: Cigarettes Smokeless tobacco: Never Tobacco comments: 1 ppd started at age 18 Vaping Use Vaping Use: Never used Substance Use Topics Alcohol use: No Drug use: No Review of Symptoms GENERAL: No weight loss. No malaise or fevers HEENT: Negative for headaches No eye discharge or redness No earaches or drainage No sore throat Nose POS/NEG for congestion and nasal discharge NECK: Negative for lumps, pain or significant neck swelling RESPIRATORY: No wheezing, SOB, Difficulty breathing. CARDIOVASCULAR: Negative for chest pain GI: No nausea, vomiting, or diarrhea MUSCULOSKELETAL: Negative for muscle aches or bodyaches SKIN: Negative for lesions, rash, and itching Neuro: No lightheadedness or dizziness EXAM: LMP 07/15/2020 Deferred physical exam as visit was completed over the phone. Virtual visit completed using video, limited exam completed. General Appearance: Well appearing, alert, in no acute distress, well-hydrated, well nourished. Skin: Skin color Head: Normocephalic Psych: Attitude - cooperative, easily engaged in conversation Appearance - normal, hygiene and grooming appropriate Affect - euthymic, normal mood Mental status: Alert, attentive. Speech is clear and fluent with good repetition, comprehension Coordination: No abnormal or extraneous movements. Gait/Stance: Posture is normal. Health Maintenance List PNEUMOCOCCAL(1 - PCV) Never done COVID-19 VACCINE(3 - Booster for Moderna series) due on 08/06/2021 INFLUENZA(1) due on 09/10/2022 PAP TESTING due on 03/18/2027 HPV TESTING due on 03/18/2027 DTAP,TDAP,TD(8 - Td or Tdap) due on 03/30/2029 HEPATITIS B Completed HEPATITIS C SCREENING Completed HIV SCREENING Completed Data reviewed Last 5 Encounter BP Readings: Date: BP: 04/12/2022 130/76 03/30/2022 118/78 03/18/2022 120/80 03/11/2022 122/80 02/09/2022 124/62 BMI Readings from Last 5 Encounters: 04/12/22 : 34.96 kg/m 03/30/22 : 35.33 kg/m 03/18/22 : 35.33 kg/m 03/11/22 : 34.01 kg/m 02/09/22 : 35.33 kg/m Last 5 Encounter Wt Readings: Date: Wt: 04/12/2022 83.9 kg (185 lb) 03/30/2022 84.8 kg (187 lb) 03/18/2022 84.8 kg (187 lb) 03/11/2022 81.6 kg (180 lb) 02/09/2022 84.8 kg (187 lb) Medication and allergy list reviewed, reconciled and updated 05/27/2022 ASSESSMENT/PLAN: 1. Panic attacks - ICD9: 300.01, ICD10: F41.0 Added BuSpar for every day use and lorazepam as needed for anxiety attacks especially when she goes for court dates and she has a lot of them coming up.- LORAZEPAM 0.5 MG TABLET Follow-up in 6 weeks Jennifer Almanza MD documented in this encounter [facility] 04-12-2022 Note HNO ID: [id number] Author: Jennifer Almanza MD Service: ? Author Type: Physician Type: Progress Notes Filed: 04/12/2022 1:21 PM Note Text: Reason for Visit Patient presents with: Follow Up: 1 month follow up-adiprachel Tang is a 31 year old female who presents here today for Above Complaints.. Health Maintenance PNEUMOCOCCAL(1 - PCV) COVID-19 VACCINE(3 - Booster for Moderna series) HPI On adipex, she has not been losing wt like she should, she is eating only one meal a day, She is working and caring for kidsn and does not have time for exercising No problem-specific Assessment AND Plan notes found for this encounter. PAST MEDICAL HISTORY Diagnosis Date Anemia WITH Anxiety and depression 09/07/2021 PAST SURGICAL HISTORY Procedure Laterality Date CARPAL TUNNEL 2017 right hand DELIVERY ONLY 2010 , low transverse DELIVERY ONLY 11/06/13 , low transverse DELIVERY ONLY 06/18/2019 RC/S low transverse NEXPLANON INSERTION 12/28/2013 removed TUBAL LIGATION Bilateral 06/18/2019 FAMILY HISTORY Problem Relation Age of Onset No Known Problems Mother No Known Problems Father No Known Problems Sister No Known Problems Brother Hypertension Maternal Grandmother Diabetes Maternal Grandmother Hypertension Maternal Grandfather Diabetes Maternal Grandfather Type II Heart Maternal Grandfather Kidney Disease Paternal Grandmother Hypertension Paternal Grandfather Diabetes Paternal Grandfather Type II No Known Problems Daughter No Known Problems Son Social History Tobacco Use Smoking status: Every Day Packs/day: 0.50 Years: 5.00 Pack years: 2.50 Types: Cigarettes Smokeless tobacco: Never Tobacco comments: 1 ppd started at age 18 Vaping Use Vaping Use: Never used Substance Use Topics Alcohol use: No Drug use: No Past medical history, appointments, medications, allergies reviewed. Pertinent Lab/Diagnostic Studies are reviewed and discussed today Current Outpatient Medications: cyclobenzaprine (FLEXERIL) 5 mg tablet naproxen (NAPROSYN) 500 mg tablet FLUoxetine (PROZAC) 20 mg capsule albuterol HFA (VENTOLIN HFA) 90 mcg/actuation inhaler montelukast (SINGULAIR) [address] (PROTONIX) 40 mg tablet fluticasone-salmeterol (ADVAIR DISKUS) 250-50 mcg/dose inhaler ibuprofen (MOTRIN) 600 mg tablet etonogestrel (NEXPLANON) subdermal implant 68 mg Review of Systems CONSTITUTIONAL: No fevers, chills night sweats, unintended weight loss CARDIOVASCULAR: No chest pain, dyspnea, palpitations, orthopnea, PND, ankle edema. PULM: No dyspnea, unexplained cough. GI: No dysphagia/odynophagia, problematic reflux, constipation, diarrhea, changes in stool habits, hematochezia, melena. : No new urinary complaints, including dysuria, gross hematuria or pyuria. NEURO: No new balance problems, peripheral weakness/paresthesias or numbness of concern. Physical Exam BP 130/76 (BP Site: Left Arm, BP Position: Sitting, BP Cuff Size: Large Adult) Pulse 92 Temp 36.8 ?C (98.2 ?F) Resp 12 Ht 154.9 cm (5' 1 ) Wt 83.9 kg (185 lb) LMP 07/15/2020 SpO2 100% BMI 34.96 kg/m? General appearance: Well appearing, alert, in no acute distress, well nourished. Skin: Skin color, texture, turgor normal, no suspicious rashes or lesions Head: Normocephalic, no masses, lesions, tenderness or abnormalities Eyes: Anicteric sclera. Pupils are equally round and reactive to light. Extraocular movements are intact. Lungs: Lungs clear to auscultation. No wheezing, rhonchi, rales Heart: RRR without murmur, gallop, or rubs. ASSESSMENT/PLAN: 1. Obesity (BMI 30-39.9) - ICD9: 278.00, ICD10: E66.9 She has not been eating adquately , we discussed eating every 3/4 hours and begin exercising - PHENTERMINE 37.5 MG TABLET Jennifer Almanza MD [facility] 04-12-2022 History of Presen t illness Narrative Reason for Visit Patient presents with: Follow Up: 1 month follow up-adipex Stella Tang is a 31 year old female who presents here today for Above Complaints.. Health Maintenance PNEUMOCOCCAL(1 - PCV) COVID-19 VACCINE(3 - Booster for Moderna series) HPI On adipex, she has not been losing wt like she should, she is eating only one meal a day, She is working and caring for kidsn and does not have time for exercising No problem-specific Assessment & Plan notes found for this encounter. PAST MEDICAL HISTORY Diagnosis Date Anemia WITH Anxiety and depression 09/07/2021 PAST SURGICAL HISTORY Procedure Laterality Date CARPAL TUNNEL 2017 right hand DELIVERY ONLY 2010 , low transverse DELIVERY ONLY 11/06/13 , low transverse DELIVERY ONLY 06/18/2019 RC/S low transverse NEXPLANON INSERTION 12/28/2013 removed TUBAL LIGATION Bilateral 06/18/2019 FAMILY HISTORY Problem Relation Age of Onset No Known Problems Mother No Known Problems Father No Known Problems Sister No Known Problems Brother Hypertension Maternal Grandmother Diabetes Maternal Grandmother Hypertension Maternal Grandfather Diabetes Maternal Grandfather Type II Heart Maternal Grandfather Kidney Disease Paternal Grandmother Hypertension Paternal Grandfather Diabetes Paternal Grandfather Type II No Known Problems Daughter No Known Problems Son Social History Tobacco Use Smoking status: Every Day Packs/day: 0.50 Years: 5.00 Pack years: 2.50 Types: Cigarettes Smokeless tobacco: Never Tobacco comments: 1 ppd started at age 18 Vaping Use Vaping Use: Never used Substance Use Topics Alcohol use: No Drug use: No Past medical history, appointments, medications, allergies reviewed. Pertinent Lab/Diagnostic Studies are reviewed and discussed today Current Outpatient Medications: cyclobenzaprine (FLEXERIL) 5 mg tablet naproxen (NAPROSYN) 500 mg tablet FLUoxetine (PROZAC) 20 mg capsule albuterol HFA (VENTOLIN HFA) 90 mcg/actuation inhaler montelukast (SINGULAIR) [address] (PROTONIX) 40 mg tablet fluticasone-salmeterol (ADVAIR DISKUS) 250-50 mcg/dose inhaler ibuprofen (MOTRIN) 600 mg tablet etonogestrel (NEXPLANON) subdermal implant 68 mg Review of Systems CONSTITUTIONAL: No fevers, chills night sweats, unintended weight loss CARDIOVASCULAR: No chest pain, dyspnea, palpitations, orthopnea, PND, ankle edema. PULM: No dyspnea, unexplained cough. GI: No dysphagia/odynophagia, problematic reflux, constipation, diarrhea, changes in stool habits, hematochezia, melena. : No new urinary complaints, including dysuria, gross hematuria or pyuria. NEURO: No new balance problems, peripheral weakness/paresthesias or numbness of concern. Physical Exam BP 130/76 (BP Site: Left Arm, BP Position: Sitting, BP Cuff Size: Large Adult) Pulse 92 Temp 36.8 C (98.2 F) Resp 12 Ht 154.9 cm (5' 1 ) Wt 83.9 kg (185 lb) LMP 07/15/2020 SpO2 100% BMI 34.96 kg/m General appearance: Well appearing, alert, in no acute distress, well nourished. Skin: Skin color, texture, turgor normal, no suspicious rashes or lesions Head: Normocephalic, no masses, lesions, tenderness or abnormalities Eyes: Anicteric sclera. Pupils are equally round and reactive to light. Extraocular movements are intact. Lungs: Lungs clear to auscultation. No wheezing, rhonchi, rales Heart: RRR without murmur, gallop, or rubs. ASSESSMENT/PLAN: 1. Obesity (BMI 30-39.9) - ICD9: 278.00, ICD10: E66.9 She has not been eating adquately , we discussed eating every 3/4 hours and begin exercising - PHENTERMINE 37.5 MG TABLET Jennifer Almanza MD documented in this encounter [facility] 03-30-2022 Instructions Delfina Ruiz Ma - 03/30/2022 8:44 AM EST YOUR RECOVERY It may take a few weeks for your cervix to heal. While your cervix heals, you may have: - Vaginal bleeding (less than a normal menstrual period) - Mild cramping - A brown-black vaginal discharge (similar to coffee grounds) which is a result of the paste used to help stop bleeding from the procedure Do NOT put anything in the vagina for 1 week after your colposcopy if your doctor does a biopsy of your cervix. This includes sex, tampons, and douches. If you have any discomfort, you may take an over the counter pain medication (motrin, advil, ibuprofen, tylenol, etc). If this does not relieve your discomfort, contact your doctor's office for a prescription strength pain medication. It is okay to wear a sanitary pad until the discharge and spotting stops. RISKS Although problems seldom occur with colposcopy, there can be some complications. You may feel faint during and shortly after the procedure as well as have some bleeding and vaginal discharge after the procedure. There is also a risk of infection after the procedure. These complications are rare and can be easily treated. You should contact you doctor is you have any of the following: - Heavy bleeding (more than your normal period) - Bleeding with clots - Severe abdominal pain - Fever (more than 100.4F) - Foul smelling vaginal discharge RESULTS If a biopsy was taken, we will have the results of your biopsy in 1-2 weeks. If you do not hear the results of your biopsy after 2 weeks, please contact your physicians office for the results. Depending on the biopsy results, your doctor will determine your follow up plan which may include further testing or treatments. STAYING HEALTHY After the procedure, you will need to see your doctor for follow up visits during the year. At these visits your doctor will check the health of your cervix with a pap smear. After three normal pap smears, your doctor will allow you to return to having exams once a year. If you have another abnormal pap smear, you may need closer follow up for longer or you may need additional treatment. By making a few lifestyle changes after the procedure, you can help protect the health of your cervix: - Have regular pelvic exams and pap smears as ordered by your doctor. - Stop smoking as smoking increases your risk of developing a cancer of the cervix - If you have more than one sexual partner, limit your number of partners and use condoms to reduce your risks of STDs. If you have any additional questions, please contact your doctor's office. Gardasil Gardasil is a vaccine to protect against Human Papillomavirus (HPV) types 6, 11, 16, 18, 31,33,45, 52, 58. These viruses cause cancer and precancerous lesions on the cervix (opening between vagina and uterus), in the vagina and on the vulva (skin around the outside of the vagina) as well as genital warts. The vaccine cannot cause these diseases and cannot treat them if already present. Gardasil works best if given before contact with HPV. Most people are exposed to HPV soon after starting sexual activity. The vaccine is recommended between the ages of 9 and 45. Gardasil does not protect against all strains of HPV. Women who receive the vaccine still need to have regular pelvic exams and cervical cancer screening with the pap smear. You should ask your doctor if Gardasil is right for you if you have a weakened immune system, a bleeding disorder, plan to become soon or have a current illness causing fever. Gardasil is not recommended for women. You should be sure your doctor is aware of any allergies you have and all medications and herbal supplements you take. Gardasil is given to those ages 9-14 in 2 doses at 0 and 8 months. In ages 15-45, three injections are given at 0,2,6 months. Common side effects include pain, redness, itching and swelling at the injection site, nausea, fever, dizziness and fainting. Rare but potentially serious reactions have been reported. These include allergic reaction, swollen glands, joint and muscle pain, weakness and Guillain-Graford syndrome. documented in this encounter [facility] 03-30-2022 History of Presen t illness Narrative Stella is a 31 year old who presents today for a colposcopy. The patient's last pap smear was Positive HPV from March 2022. Patient has a history of abnormal pap: No. The patient has had prior treatment: none. test: negative UNIVERSAL PROTOCOL / SAFETY CHECKLIST Procedure to be Performed: colposcopy Sign In: A Moment of CARE was completed. Personnel directly involved with the procedure wore the appropriate PPE (Personal Protective Equipment). Patient/Surrogate Stated/Verified: PATIENT VERIFIED(optional for EMERGENT procedures): Patient name, Date of , Relevant allergies, and The intended procedure Time Out Communication: Intended patient and procedure match the source documents. Consent documented and matches the intended procedure. Sign Out: SIGN OUT (optional for EMERGENT procedures): No specimen collected. PROCEDURE: EXTERNAL GENITALIA: Normal in appearance without lesions VAGINA: Normal in appearance without lesions CERVIX: Speculum placed in vagina and excellent visualization of cervix achieved. Cervix swabbed x 3 with 3% acetic acid solution. Cervix grossly normal. Squamocolumnar junction visualized. No acetowhite changes, punctations, mosaicism or atypical vasculature noted. BIOPSY: Not done. ECC: not done HEMOSTASIS: NA Procedure Summary: Patient tolerated procedure well and colposcopy was adequate. ASSESSMENT: HPV effect PLAN: Repeat pap and hpv in one year Gardasil vaccine reviewed- accepted Amy Block MD Patient identified by name and date of . Stella Tang is here for her HPV 9 vaccination, injection # one of the series. Patient ?No Gardasil injection was given without incident. See immunizations for details of immunizations administered today. VIS sheet provided: Yes Patient advised to follow up in 2 months from the 1st injection Provider Amy Block MD was present in office at time of injection. Delfina Ruiz Ma documented in this encounter [facility] 03-24-2022 History of Presen t illness Narrative POPULATION HEALTH NAVIGATION OUTREACH Action/[facility] [place] Support: Called pt to schedule an appt in Pain Management. Lvm for pt to call [phone] for scheduling. Pt identified by name and : NO Outreach Outcome/Action Unable to reach patient: left message Did you use a PCP flex slot to schedule this appointment? N/A Reason for Outreach Care Gap or Scheduling/Wellness visits Payer: Payor: [employer] [place] / [place] [facility] [place] Product Type: Medicaid / Care Gap Reviewed:: Specialty Scheduling Reminder: Reminder note to check Health Maintenance for items below Health Maintenance items due: PNEUMOCOCCAL(1 - PCV) Never done COVID-19 VACCINE(3 - Booster for Moderna series) due on 08/06/2021 Navigation Signature: Brianda Lackey March 24, 2022 11:17 AM documented in this encounter [facility] 03-23-2022 Miscellaneous Notes Patient notified and colposcopy scheduled. Authenticlick message sent with further information. Christina Dunaway RN Left message for patient to return phone call ordered Dr Yarbrough, please file order for colpsocopy and then we will call patient ----- Message from Amy Yarbrough MD sent at 03/23/2022 1:16 PM EST ----- Pap is normal but notify patient that her HPV is positive. Needs a colposcopy. Please help schedule. documented in this encounter [facility] 03-18-2022 History of Presen t illness Narrative Faucets Assembler offered: Patient declines. Stella Tang is a 31 year old female who presents for c/o Pelvic pain and abnormal bleeding for last 2 months or so. Pt reports has irregular menstrual cycles with nexplanon but for past few months has been having dark black spotting almost daily. Pt reports has been having more pelvic pain that she describes as cramping and sharp. Pt reports daily pain is rated as 3/10. Pt reports sex is so uncomfortable that she does not want to have intercourse with her which is affecting her relationship at this time. Pt reports tylenol and ibuprofen, and heat do not help with pain. Pt reports no vaginal odor or discharge, no concerns for STDs. Denies Dysuria or other concerns. Pt reports has tried mirena previously- did ok and willing to try again. Has not tried ocps but does smoke 1ppd. Pt reports is open to other options for pain and bleeding control. Pt offers no other concerns. OB History T3 L3 SAB0 IAB0 Ectopic0 Multiple0 Live Births3 [employer] History LMP: 07/15/2020, Implant Age at Menarche: Age at First : Age at Menopause: [employer] Work[employer] History Comments: Sexual Activity: Yes; Male Contraception: No contraception data on record PAST MEDICAL HISTORY Diagnosis Date Anemia WITH Anxiety and depression 09/07/2021 PAST SURGICAL HISTORY Procedure Laterality Date CARPAL TUNNEL 2017 right hand DELIVERY ONLY 2010 , low transverse DELIVERY ONLY 11/06/13 , low transverse DELIVERY ONLY 06/18/2019 RC/S low transverse NEXPLANON INSERTION 12/28/2013 removed TUBAL LIGATION Bilateral 06/18/2019 FAMILY HISTORY Problem Relation Age of Onset No Known Problems Mother No Known Problems Father No Known Problems Sister No Known Problems Brother Hypertension Maternal Grandmother Diabetes Maternal Grandmother Hypertension Maternal Grandfather Diabetes Maternal Grandfather Type II Heart Maternal Grandfather Kidney Disease Paternal Grandmother Hypertension Paternal Grandfather Diabetes Paternal Grandfather Type II No Known Problems Daughter No Known Problems Son Social History Tobacco Use Smoking status: Every Day Packs/day: 0.50 Years: 5.00 Pack years: 2.50 Types: Cigarettes Smokeless tobacco: Never Tobacco comments: 1 ppd started at age 18 Vaping Use Vaping Use: Never used Substance Use Topics Alcohol use: No Drug use: No Current Outpatient Medications Medication Sig cyclobenzaprine (FLEXERIL) 5 mg tablet Take 1-2 tablets by mouth three times daily. naproxen (NAPROSYN) 500 mg tablet Take 1 tablet by mouth twice daily as needed (for pain/inflammation). Take with food. Phentermine HCl 37.5 mg tablet Take 1 tablet by mouth once daily for 30 days. FLUoxetine (PROZAC) 20 mg capsule Take 1 pill daily for 14 days and then increase to 2 pills a day albuterol HFA (VENTOLIN HFA) 90 mcg/actuation inhaler Inhale 2 Puffs as instructed every 4 hours as needed for wheezing/shortness of breath. montelukast (SINGULAIR) 10 mg tablet Take 1 tablet by mouth daily at bedtime. pantoprazole DR (PROTONIX) 40 mg tablet Take 1 tablet by mouth once daily. fluticasone-salmeterol (ADVAIR DISKUS) 250-50 mcg/dose inhaler Inhale 1 Puff as instructed twice daily. RINSE AND GARGLE MOUTH WITH WATER AFTER EACH USE. ibuprofen (MOTRIN) 600 mg tablet Take 1 tablet by mouth every 6 hours as needed for pain. etonogestrel (NEXPLANON) subdermal implant 68 mg 1 Each by SUBDERMAL route as directed. No current facility-administered medications for this visit. Allergies As of Date: 03/18/2022 (No Known Allergies) Fully Assessed 02/09/2022 REVIEW OF SYSTEMS Abdomen: no constipation, diarrhea. Bladder: no dysuria. Expanded ROS: GENERAL: Negative for fever Allergies and current medication updated:Yes EXAM: BP 120/80 Wt 187 lb (84.8kg) LMP 07/15/2020 GENERAL: pleasant, female in no apparent distress HEENT: Normocephalic and atraumatic NECK: full range of motion DERMATOLOGY: Normal, without lesions, non-icteric, and non-hirsute ABDOMEN: soft, non-tender, and no masses PELVIC: external genitalia normal, normal Bartholin's glands, urethra, [place]'s glands, no vulvar lesions, no cervical lesions, good vaginal support, physiologic discharge present, normal appearing perineal body and perianal region BIMANUAL: uterus normal size, shape and consistency, no adnexal masses, and Mild tenderness to palpation of uterus NEURO: alert and oriented x3,exam grossly non-focal EXTREMITIES: normal ASSESSMENT AND PLAN: Encounter Diagnosis ICD-10-CM 1. Screening for cervical cancer Z12.4 PAP FLUID CERVICAL SCREENING 2. Encounter for screening for human papillomavirus (HPV) Z11.51 PAP FLUID CERVICAL SCREENING 3. Pelvic pain in female R10.2 PELVIC US WHI GC/CHLAMYDIA DNA DET IVON / TRICHOMONAS AMPLIFICATION BACTERIAL VAGINOSIS AMPLIFICATION 4. Deep dyspareunia N94.12 PELVIC US WHI 5. Abnormal uterine bleeding (AUB) N93.9 PELVIC US WHI GC/CHLAMYDIA DNA DET IVON / TRICHOMONAS AMPLIFICATION BACTERIAL VAGINOSIS AMPLIFICATION 6. Reviewed causes of pelvic pain. Reviewed previous ultrasound from 2020- adenomyosis ??. Discussed possible pelvic pain clinic with patient. Possible mirena vs aygestin 5mg vs depo. Reviewed may need possible surgical intervention with hysterectomy as some point - if indicated. TLH would be recommend. Pt will consider options and discuss after pelvic ultrasound results are back. Medical Decision Making: Problems: Moderate: New problem with uncertain prognosis Data: Unique test(s) ordered: 3+ Medical Decision Making Level: 4 - Moderate Amy Block MD documented in this encounter [facility] 03-11-2022 History of Presen t illness Narrative CC: Patient presents with: Recheck: Adipex follow up HPI Stella Tang is a 31 year old female who presents today for above. Currently taking phentermine. Starting Month 2 of 3 Weight/BMI Last 1 Encounter Wt Readings: Date: Wt: 03/11/2022 81.6 kg (180 lb) BMI 34.01 kg/(m^2) Last visit Wt: 84.8 kg (187 lb) BMI: 35.33 kg/(m^2) DIET Daily serving of fruits:1-2 Daily serving of vegetables:0 Daily serving of protein:3-5 Fluid intake:Water: 3 bottles per day Do you Skip meals:YES Which meals do you tend to skip? Breakfast Eating away from home:YES Fast-food/fast-casualOnce weekly or less often Exercise routine: YES Usually walks a lot but has been having back spasms so unable to exercise at this time. Medication side effects: Increased heart rate: No Insomnia: No Constipation: No Nervousness: No Impairment of concentration/attention, difficulty with memory, speech or language problems (particularly word-finding difficulties): No At end of visit, patient wanting to discuss her chronic low back pain. She is seeing pain mgmt in March but is needing medication to get her through until appointment. No change in pain or symptoms and denies numbness, weakness, difficulty/loss of bowel/bladder, or any other concerns.. States she has spasms and her back tightens up sending a sharp pain to her lower back that radiates to her right hip. ROS as above, otherwise non-contributory. Reviewed PMHx, PSHx, social Hx, medications and allergies. PHYSICAL EXAM BP 122/80 Pulse 92 Resp 16 Wt 81.6 kg (180 lb) LMP 07/15/2020 BMI 34.01 kg/m General Appearance: well appearing, in no acute distress, alert Eyes: conjunctiva pink and moist, no icterus, sclera white, non-injected Lungs: Lungs clear to auscultation. No wheezing, rhonchi, rales. Heart: RRR without murmur, gallop, or rubs. No ectopy Neurological: Gait normal. speech normal, mental status intact, muscle tone normal, muscle strength normal ASSESSMENT/PLAN: 1. Obesity (BMI 30-39.9) - ICD9: 278.00, ICD10: E66.9 (primary diagnosis) Weight decreasing - Behavioral intervention and - Pharmacological intervention - PHENTERMINE 37.5 MG TABLET 2. Weight loss counseling, encounter for - ICD9: V65.3, ICD10: Z71.3 As above 3. Chronic right-sided low back pain with right-sided sciatica - ICD9: 724.2, 724.3, 338.29, ICD10: M54.41, G89.29 - has been assessed by providers and awaiting paim mgmt so not fully evaluated in office today. - naproxen and flexeril as ordered. - go to ER for increased pain, weakness, numbness, difficulty/loss of bowel or bladder or any other urgent concerns. Prescription instructions reviewed with patient as applicable. Potential red flag symptoms discussed with the patient. Reviewed appropriate action plan to take if red flag symptoms occur. Patient agreeable to treatment plan. Krupa Musa APRN.CNP documented in this encounter [facility] 02-09-2022 History of Presen t illness Narrative Reason for Visit Patient presents with: Recheck: discuss medication-prozac and adipex Stella Tang is a 31 year old female who presents here today for Above Complaints.. Health Maintenance PNEUMOCOCCAL(1 - PCV) COVID-19 VACCINE(3 - Booster for Moderna series) HPV TESTING HPI Patient was given 40 mgs of prozac, but that was too much for her , she was light headed, shaky, heart was racing, Bp went up and she just did not feel right, so she was cut it down to 20 mg and she feels better. Medication is working for her symptoms currently. She has gained weight from the lexapro and would like to loose some of it. Willing to try the phentermine No h/o palpitations Negative for all the following :Hypersensitivity or idiosyncrasy to phentermine or other sympathomimetic amines or any component of the formulation; history of cardiovascular disease (arrhythmias, congestive heart failure, coronary artery disease, stroke, uncontrolled hypertension); hyperthyroidism, glaucoma, agitated states, history of drug abuse; use during or within 14 days following MAO inhibitor therapy; , breast-feeding. No problem-specific Assessment & Plan notes found for this encounter. PAST MEDICAL HISTORY Diagnosis Date Anemia WITH Anxiety and depression 09/07/2021 PAST SURGICAL HISTORY Procedure Laterality Date CARPAL TUNNEL 2017 right hand DELIVERY ONLY 2010 , low transverse DELIVERY ONLY 11/06/13 , low transverse DELIVERY ONLY 06/18/2019 RC/S low transverse NEXPLANON INSERTION 12/28/2013 removed TUBAL LIGATION Bilateral 06/18/2019 FAMILY HISTORY Problem Relation Age of Onset No Known Problems Mother No Known Problems Father No Known Problems Sister No Known Problems Brother Hypertension Maternal Grandmother Diabetes Maternal Grandmother Hypertension Maternal Grandfather Diabetes Maternal Grandfather Type II Heart Maternal Grandfather Kidney Disease Paternal Grandmother Hypertension Paternal Grandfather Diabetes Paternal Grandfather Type II No Known Problems Daughter No Known Problems Son Social History Tobacco Use Smoking status: Every Day Packs/day: 0.50 Years: 5.00 Pack years: 2.50 Types: Cigarettes Smokeless tobacco: Never Tobacco comments: 1 ppd started at age 18 Vaping Use Vaping Use: Never used Substance Use Topics Alcohol use: No Drug use: No Past medical history, appointments, medications, allergies reviewed. Pertinent Lab/Diagnostic Studies are reviewed and discussed today Current Outpatient Medications: FLUoxetine (PROZAC) 20 mg capsule albuterol HFA (VENTOLIN HFA) 90 mcg/actuation inhaler escitalopram oxalate (LEXAPRO) 5 mg tablet montelukast (SINGULAIR) [address] (PROTONIX) 40 mg tablet fluticasone-salmeterol (ADVAIR DISKUS) 250-50 mcg/dose inhaler fluticasone-vilanterol (BREO ELLIPTA) 100-25 mcg/dose inhaler ibuprofen (MOTRIN) 600 mg tablet etonogestrel (NEXPLANON) subdermal implant 68 mg Review of Systems CONSTITUTIONAL: No fevers, chills night sweats, unintended weight loss CARDIOVASCULAR: No chest pain, dyspnea, palpitations, orthopnea, PND, ankle edema. PULM: No dyspnea, unexplained cough. GI: No dysphagia/odynophagia, problematic reflux, constipation, diarrhea, changes in stool habits, hematochezia, melena. : No new urinary complaints, including dysuria, gross hematuria or pyuria. NEURO: No new balance problems, peripheral weakness/paresthesias or numbness of concern. Physical Exam BP 124/62 (BP Site: Left Arm, BP Position: Sitting, BP Cuff Size: Large Adult) Pulse 101 Temp 36.8 C (98.2 F) Resp 12 Ht 154.9 cm (5' 1 ) Wt 84.8 kg (187 lb) LMP 07/15/2020 SpO2 99% BMI 35.33 kg/m General appearance: Well appearing, alert, in no acute distress, well nourished. Skin: Skin color, texture, turgor normal, no suspicious rashes or lesions Head: Normocephalic, no masses, lesions, tenderness or abnormalities Eyes: Anicteric sclera. Pupils are equally round and reactive to light. Extraocular movements are intact. Lungs: Lungs clear to auscultation. No wheezing, rhonchi, rales Heart: RRR without murmur, gallop, or rubs. Extremities: No deformities, edema, skin discoloration, clubbing or cyanosis. Good capillary refill. ASSESSMENT/PLAN: 1. Class 2 severe obesity with serious comorbidity and body mass index (BMI) of 35.0 to 35.9 in adult, unspecified obesity type (HCC) - ICD9: 278.01, V85.35, ICD10: E66.01, Z68.35 (primary diagnosis) Stable Discussed Contraindications, went over each one and over side effects. tolerance, continuity of medication, controlled medication so cannot be replaced if stolen or if lost. Advised exercising along with this will really help the patient reach her goal of loosing weight. Short term use of this med was discussed. Negative for all the following :Hypersensitivity or idiosyncrasy to phentermine or other sympathomimetic amines or any component of the formulation; history of cardiovascular disease (arrhythmias, congestive heart failure, coronary artery disease, stroke, uncontrolled hypertension); hyperthyroidism, glaucoma, agitated states, history of drug abuse; use during or within 14 days following MAO inhibitor therapy; , breast-feeding 2. Anxiety and depression - ICD9: 300.00, 311, ICD10: F41.9, F32.A The patient symptoms are well controlled at this point Jennifer Almanza MD documented in this encounter [facility] 12-24-2021 History of Presen t illness Narrative This note was created using [employer]. Subjective Stella Tang is a 31 year old female. 31 year old female with PMH anxiety and depression presents with complaints of my sciatica Acute onset one week ago Right sided +radiation down butt Denies known trauma or injury. Denies sx. Denies fever or chills. Denies skin rash or lesions. Endorses history of same She utilized Medrol Dose Pack and Flexeril, unsure of expiration date. States that it did not seem to improve much. Denies bowel or bladder dysfunction, Saddle anesthesia, unilateral weakness, or inability to ambulate The history is provided by the patient. No cardboard cutter was used. Back Pain This is a recurrent problem. The current episode started more than 1 week ago. The problem occurs constantly. The problem has not changed since onset.The pain is associated with no known injury. The pain is present in the lumbar spine. The quality of the pain is described as cramping, stabbing and shooting. The pain radiates to the right thigh and right knee. The pain is at a severity of 7/10. The pain is moderate. The symptoms are aggravated by bending, twisting and certain positions. The pain is The same all the time. Stiffness is present All day. Pertinent negatives include no chest pain, no fever, no numbness, no weight loss, no headaches, no abdominal pain, no abdominal swelling, no bowel incontinence, no perianal numbness, no bladder incontinence, no dysuria, no pelvic pain, no leg pain, no paresthesias, no paresis, no tingling and no weakness. Treatments tried: see hpi. The treatment provided mild relief. Risk factors include obesity, poor posture, lack of exercise and a sedentary lifestyle. PAST MEDICAL HISTORY Diagnosis Date Anemia WITH Anxiety and depression 09/07/2021 PAST SURGICAL HISTORY Procedure Laterality Date CARPAL TUNNEL 2017 right hand DELIVERY ONLY 2010 , low transverse DELIVERY ONLY 11/06/13 , low transverse DELIVERY ONLY 06/18/2019 RC/S low transverse NEXPLANON INSERTION 12/28/2013 removed TUBAL LIGATION Bilateral 06/18/2019 ALLERGIES Patient has no known allergies. MEDICATIONS escitalopram oxalate (LEXAPRO) 5 mg tablet Take 1 tablet by mouth once daily. montelukast (SINGULAIR) 10 mg tablet Take 1 tablet by mouth daily at bedtime. pantoprazole DR (PROTONIX) 40 mg tablet Take 1 tablet by mouth once daily. fluticasone-salmeterol (ADVAIR DISKUS) 250-50 mcg/dose inhaler Inhale 1 Puff as instructed twice daily. RINSE AND GARGLE MOUTH WITH WATER AFTER EACH USE. ibuprofen (MOTRIN) 600 mg tablet Take 1 tablet by mouth every 6 hours as needed for pain. etonogestrel (NEXPLANON) subdermal implant 68 mg 1 Each by SUBDERMAL route as directed. methocarbamol (ROBAXIN) 500 mg tablet Take 1 tablet by mouth every 6 hours as needed (Pain) for up to 3 days. predniSONE (DELTASONE) 10 mg tablet Take 6 tabs for 3 days, then 4 tabs for 3 days, then 2 tabs for 3 days then 1 tab for 3 days with food. albuterol HFA (VENTOLIN HFA) 90 mcg/actuation inhaler Inhale 2 Puffs as instructed every 4 hours as needed for wheezing/shortness of breath. fluticasone-vilanterol (BREO ELLIPTA) 100-25 mcg/dose inhaler Inhale 1 Inhalation as instructed once daily. FAMILY HISTORY Problem Relation Age of Onset No Known Problems Mother No Known Problems Father No Known Problems Sister No Known Problems Brother Hypertension Maternal Grandmother Diabetes Maternal Grandmother Hypertension Maternal Grandfather Diabetes Maternal Grandfather Type II Heart Maternal Grandfather Kidney Disease Paternal Grandmother Hypertension Paternal Grandfather Diabetes Paternal Grandfather Type II No Known Problems Daughter No Known Problems Son Social History Tobacco Use Smoking status: Every Day Packs/day: 0.50 Years: 5.00 Pack years: 2.50 Types: Cigarettes Smokeless tobacco: Never Tobacco comments: 1 ppd started at age 18 Vaping Use Vaping Use: Never used Substance Use Topics Alcohol use: No Drug use: No Review of Systems Constitutional: Negative for activity change, appetite change, chills, fever and weight loss. HENT: Negative for congestion. Eyes: Negative for pain, discharge, redness and itching. Respiratory: Negative for apnea, choking and chest tightness. Cardiovascular: Negative for chest pain, palpitations and leg swelling. Gastrointestinal: Negative for abdominal pain and bowel incontinence. Genitourinary: Negative for bladder incontinence, dysuria and pelvic pain. Musculoskeletal: Positive for back pain. Negative for gait problem. Skin: Negative for color change and pallor. Allergic/Immunologic: Negative for environmental allergies, food allergies and immunocompromised state. Neurological: Negative for dizziness, tingling, facial asymmetry, weakness, numbness, headaches and paresthesias. Hematological: Negative for adenopathy. Does not bruise/bleed easily. Psychiatric/Behavioral: Negative for agitation and behavioral problems. Objective BP 122/78 Pulse 104 Temp 36.9 C (98.5 F) (Tympanic) Resp 18 Wt 84.9 kg (187 lb 3.2 oz) LMP 07/15/2020 SpO2 98% BMI 35.37 kg/m Physical Exam Vitals and nursing note reviewed. Constitutional: General: She is not in acute distress. Appearance: Normal appearance. She is normal weight. She is not ill-appearing, toxic-appearing or diaphoretic. HENT: Head: Normocephalic and atraumatic. Right Ear: Ear canal and external ear normal. Left Ear: Ear canal and external ear normal. Nose: Nose normal. No congestion or rhinorrhea. Mouth/Throat: Mouth: Mucous membranes are moist. Pharynx: No oropharyngeal exudate or posterior oropharyngeal erythema. Eyes: General: Right eye: No discharge. Left eye: No discharge. Extraocular Movements: Extraocular movements intact. Conjunctiva/sclera: Conjunctivae normal. Pupils: Pupils are equal, round, and reactive to light. Cardiovascular: Rate and Rhythm: Normal rate and regular rhythm. Pulses: Normal pulses. Heart sounds: Normal heart sounds. No murmur heard. No friction rub. Pulmonary: Effort: Pulmonary effort is normal. No respiratory distress. Breath sounds: Normal breath sounds. No stridor. No wheezing, rhonchi or rales. Chest: Chest wall: No tenderness. Abdominal: General: Abdomen is flat. There is no distension. Palpations: Abdomen is soft. There is no mass. Tenderness: There is no abdominal tenderness. There is no right CVA tenderness, left CVA tenderness, guarding or rebound. Hernia: No hernia is present. Musculoskeletal: General: No swelling, tenderness, deformity or signs of injury. Normal range of motion. Cervical back: Normal range of motion and neck supple. No rigidity. Right lower leg: No edema. Left lower leg: No edema. Comments: No midline cervical, thoracic, lumbar TTP. +SI joint TTP. +straight leg raise right. Ambulatory in exam room. Lymphadenopathy: Cervical: No cervical adenopathy. Skin: General: Skin is warm and dry. Capillary Refill: Capillary refill takes less than 2 seconds. Coloration: Skin is not jaundiced or pale. Findings: No bruising, erythema, lesion or rash. Neurological: General: No focal deficit present. Mental Status: She is alert and oriented to person, place, and time. Cranial Nerves: No cranial nerve deficit. Sensory: No sensory deficit. Motor: No weakness. Coordination: Coordination normal. Gait: Gait normal. Psychiatric: Mood and Affect: Mood normal. Behavior: Behavior normal. Thought Content: Thought content normal. Judgment: Judgment normal. Assessment and Plan ASSESSMENT/PLAN: 1. Sciatica, right side - ICD9: 724.3, ICD10: M54.31 Sciatica - Warm moist heat for 20 min three times a day - Prednisone taper- see orders - Muscle relaxant- see orders - Patient given instructions use of medications as ordered, intermittent rest, back care exercise program, weight loss, improved posture, proper lifting techniques, intermittent use of heat, and avoiding sleeping on a heating pad - Follow up in 3 days or sooner if symptoms persist or worsen - METHOCARBAMOL 500 MG TABLET - PREDNISONE 10 MG TABLET - KETOROLAC 60 MG/2 ML INTRAMUSCULAR SOLUTION Arline Breen APRN.HOT STAMP OPERATOR documented in this encounter [facility] 11-10-2021 Miscellaneous Notes Patient has been identified by name and date of : Yes Patient phones for refill(s): Requested Prescriptions Pending Prescriptions Disp Refills albuterol HFA (VENTOLIN HFA) 90 mcg/actuation inhaler Sig: Inhale 2 Puffs as instructed every 4 hours as needed for wheezing/shortness of breath. Date of last office visit in primary care: 09/07/2021 No future appt scheduled. Last 2 Encounter Wt Readings: Date: Wt: 09/07/2021 82.1 kg (181 lb) 08/21/2021 82.6 kg (182 lb 3.2 oz) Previous labs/tests for medication: Not applicable Please advise. Thank you. Lolis Jones LPN documented in this encounter [facility] 09-07-2021 Instructions Cecily Chase APRN.SHRAVAN - 09/07/2021 2:36 PM EDT Start taking lexapro once daily documented in this encounter [facility] 09-07-2021 History of Presen t illness Narrative SUBJECTIVE: PNEUMOCOCCAL(1 - PCV) Never done HPV TESTING due on 08/16/2021 HPI Stella Tang is a 30 year old female. PMH significant for ACTIVE PROBLEM LIST Obesity, Class Iii, Bmi 40-49.9 (Morbid Obesity) (Hcc) Pain in Right Knee Chronic Right-Sided Low Back Pain With Right-Sided Sciatica Carpal Tunnel Syndrome of Right Wrist PCP: Jennifer Almanza MD HPI excerpted from previous visit: Presents today with concern regarding asthma. On arrival says that she was seen at [facility] urgent care and treated with dexamethasone prednisone and azithromycin for respiratory illness. She reports she was told exacerbation of asthma. She reports no testing for COVID or flu at urgent care. Today reports feeling somewhat improved but not yet back to baseline. Continues with cough wheeze and shortness of breath. No fever noted. No sick contacts reported. Notes using inhaler or nebulizer once or twice daily. Notes GI upset on prednisone. 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 No reported PFTs. Smoking: Thinking about quitting but has not yet done so CXR: Not yet completed. She notes her loss has decreased, improving. Presents today regarding concern for depression. She notes mood is low. Notes that she is also feeling anxious and like she cannot sit still. She was previously on Wellbutrin but did not feel well on it felt jittery so discontinued. Previously was going to the counseling center but has not gone recently. No voiced SI HI. Notes she feels she has recovered to baseline following COVID. Review of Systems HENT: Negative. Objective BP 120/74 Pulse 92 Resp 16 Wt 82.1 kg (181 lb) LMP 07/15/2020 BMI 34.20 kg/m Physical Exam Vitals and nursing note reviewed. Constitutional: Appearance: Normal appearance. HENT: Head: Normocephalic and atraumatic. Mouth/Throat: Lips: [place]. Eyes: Conjunctiva/sclera: Conjunctivae normal. Cardiovascular: Rate and Rhythm: Normal rate. Pulmonary: Effort: Pulmonary effort is normal. Skin: General: Skin is warm and dry. Neurological: General: No focal deficit present. Mental Status: She is alert and oriented to person, place, and time. ALLERGIES No Known Allergies Medication albuterol HFA (VENTOLIN HFA) 90 mcg/actuation inhaler, Inhale 2 Puffs as instructed every 4 hours as needed for wheezing/shortness of breath. montelukast (SINGULAIR) 10 mg tablet, Take 1 tablet by mouth daily at bedtime. pantoprazole DR (PROTONIX) 40 mg tablet, Take 1 tablet by mouth once daily. fluticasone-salmeterol (ADVAIR DISKUS) 250-50 mcg/dose inhaler, Inhale 1 Puff as instructed twice daily. RINSE AND GARGLE MOUTH WITH WATER AFTER EACH USE. fluticasone-vilanterol (BREO ELLIPTA) 100-25 mcg/dose inhaler, Inhale 1 Inhalation as instructed once daily. ibuprofen (MOTRIN) 600 mg tablet, Take 1 tablet by mouth every 6 hours as needed for pain. etonogestrel (NEXPLANON) subdermal implant 68 mg, 1 Each by SUBDERMAL route as directed. escitalopram oxalate (LEXAPRO) 5 mg tablet, Take 1 tablet by mouth once daily. PAST MEDICAL HISTORY Diagnosis Date Anemia WITH Social History Tobacco Use Smoking status: Current Every Day Smoker Packs/day: 0.50 Years: 5.00 Pack years: 2.50 Types: Cigarettes Smokeless tobacco: Never Used Tobacco comment: 1 ppd started at age 18 Vaping Use Vaping Use: Never used Substance Use Topics Alcohol use: No Drug use: No Component Latest Ref Rng & Units 02/20/2021 07/14/2021 WBC 3.70 - 11.00 k/uL 12.75 (H) RBC 3.90 - 5.20 m/uL 4.66 Hemoglobin 11.5 - 15.5 g/dL 13.8 Hematocrit 36.0 - 46.0 % 42.2 MCV 80.0 - 100.0 fL 90.6 MCH 26.0 - 34.0 pG 29.6 MCHC 30.5 - 36.0 g/dL 32.7 RDW-CV 11.5 - 15.0 % 12.5 Platelet Count 150 - 400 k/uL 292 MPV 9.0 - 12.7 fL 9.8 Neut% % 43.0 Abs Neut (ANC) 1.45 - 7.50 k/uL 5.48 Lymph% % 48.0 Abs Lymph 1.00 - 4.00 k/uL 6.12 (H) [place]% % 5.0 Abs [place] <0.87 k/uL 0.64 Eosin% % 4.0 Abs Eosin <0.46 k/uL 0.51 (H) Baso% % 0.0 Abs Baso <0.11 k/uL 0.00 ANC(includeSEG+BAND) k/uL 5.48 Red Cell Morph SEE COMMENT Platelet Estimate Platelet estimate adequate Diff Type Manual Diff Protein, Total 6.3 - 8.0 g/dL 7.3 Albumin 3.9 - 4.9 g/dL 4.6 Calcium 8.5 - 10.2 mg/dL 9.8 Bilirubin, Total 0.2 - 1.3 mg/dL 0.3 Alkaline Phosphatase 34 - 123 U/L 55 AST 13 - 35 U/L 17 Glucose 74 - 99 mg/dL 88 BUN 7 - 21 mg/dL 11 Creatinine 0.58 - 0.96 mg/dL 0.82 Sodium 136 - 144 mmol/L 139 Potassium 3.7 - 5.1 mmol/L 3.8 Chloride 97 - 105 mmol/L 102 CO2 22 - 30 mmol/L 25 Anion Gap 9 - 18 mmol/L 12 ALT 7 - 38 U/L 11 eGFR- >60 eGFR-All Other Races . >60 Cladosporium herbarum IgE <0.35 kU/l <0.35 Cladosporium herbarum Class Class 0 Class 0 Aspergillus fumigatus IgE <0.35 kU/l <0.35 Aspergillus fumigatus Class Class 0 Class 0 Mucor racemosus IgE <0.35 kU/l <0.35 Mucor racemosus Class Class 0 Class 0 Ivon albicans IgE <0.35 kU/l <0.35 Ivon albicans Class Class 0 Class 0 Alternaria tenuis IgE <0.35 kU/l <0.35 Alternaria tenuis Class Class 0 Class 0 TSH 0.270 - 4.200 uU/mL 1.150 ASSESSMENT/PLAN: 1. Anxiety and depression - ICD9: 300.00, 311, ICD10: F41.9, F32.A (primary diagnosis) Note she did not feel well on Wellbutrin. We will try Lexapro instead. Interested in counseling. Previously with counseling center but trying to limit costs of driving due to gas prices. would be interested in counseling close to her home or video visit if available. PHQ9=12 1 mo recheck with me, video ok .- CONSULT TO [facility] - ESCITALOPRAM 5 MG TABLET 2. Encounter for immunization - ICD9: V03.89, ICD10: Z23 - PNEUMOCOCCAL VACCINE (PREVNAR 20) Cecily Chase APRN.CNS Medical Decision Making: Problems: Low: Acute, uncomplicated illness or injury Data: Unique test(s) ordered: 1 Risk: Moderate: Drug management Medical Decision Making Level: 3 - Low documented in this encounter [facility] 08-31-2021 Miscellaneous Notes Patient has been identified by name and date of : Yes Patient phones for refill(s): Pending Prescriptions Disp Refills ALBUTEROL SULFATE HFA 90 MCG/ACTUATION AEROSOL INHALER 1 Inhaler 2 Sig: Inhale 2 Puffs as instructed every 4 hours as needed for wheezing/shortness of breath. MARY: No Date of last office visit in primary care: 06/09/21 Last 2 Encounter Wt Readings: Date: Wt: 08/21/2021 82.6 kg (182 lb 3.2 oz) 07/14/2021 80.7 kg (178 lb) Previous labs/tests for medication: Not applicable Please advise. Thank you. Breanna Willams LPN documented in this encounter [facility] 08-21-2021 Procedure note Associated Order(s): NITRIC OXIDE, EXHALED RESPIRATORY THERAPY ORAL EXHALED NITRIC OXIDE SERVICE DATE: 08/21/2021 SERVICE TIME: 9:49 AM Oral Exhaled Nitric Oxide measurement: <5.0 (ppb) Normal: Adult 5-20 ppb, pediatric (<12 years) 5-15 ppb High Normal / Increased: Adult 20-35 ppb, pediatric (<12 years) 15-25 ppb Moderately raised exhaled Nitric Oxide may indicate underlying inflammation, but note that: Cold and influenza can raise exhaled Nitric Oxide and some patients have higher baseline exhaled Nitric Oxide levels than others. High: Adult >35 ppb, pediatric (<12 years) >25 ppb Indicative of ongoing eosinophilic inflammation. Symptomatic patient likely to respond to steroids. Possible causes (if already on steroids): Poor compliance, recent allergen exposure, steroid dose inadequate, and steroid resistance. Note that not all patients with high exhaled nitric oxide levels display symptoms. Oral Exhaled Nitric Oxide measurement (Previous Encounters) Test Date Oral Exhaled Nitric Oxide (ppb) 08/21/2021 <5.0 NAME: POLY Bennett PATIENT NAME: Stella Tang DATE: August 21, 2021 TIME: 9:49 AM documented in this encounter [facility] 08-21-2021 History of Presen t illness Narrative PULM FUNCTION SMARTBLOCK: Provider: Kimberly Hughes MD Assisting Tech: POLY Bennett Spirometry: 1 Exhaled Nitric Oxide: 1 System: [id number] documented in this encounter [facility] 06-30-2021 Miscellaneous Notes See pt's mychart refill request. Pt was last seen in the office on 09/08/20. Please advise. Mary Avila LPN documented in this encounter [facility] 06-09-2021 Instructions Cecily Chase APRN.PATIENT INTAKE COORDINATOR - 06/09/2021 2:16 PM EDT Start taking prednisone. Take in the morning with breakfast. Do not take on an empty stomach. Start taking famotidine to help protect your stomach while taking prednisone. Use albuterol inhaler or nebulizer every 4-6 hours while you are awake to help with breathing. Let us know if you are not continuing to feel improved with treatment. Try to quit smoking documented in this encounter [facility] 06-09-2021 History of Presen t illness Narrative SUBJECTIVE: COVID-19 VACCINE(1) Never done ONE PNEUMOVAX PRIOR TO AGE 66 Never done DEPRESSION SCREENING due on 09/09/2016 PAP TESTING due on 11/16/2021 HPI Stella Tang is a 30 year old female. PMH significant for ACTIVE PROBLEM LIST Obesity, Class Iii, Bmi 40-49.9 (Morbid Obesity) (Hcc) Pain in Right Knee Chronic Right-Sided Low Back Pain With Right-Sided Sciatica Carpal Tunnel Syndrome of Right Wrist PCP: Jennifer Almanza MD Presents today with concern regarding asthma. On arrival says that she was seen at [facility] urgent care and treated with dexamethasone prednisone and azithromycin for respiratory illness. She reports she was told exacerbation of asthma. She reports no testing for COVID or flu at urgent care. Today reports feeling somewhat improved but not yet back to baseline. Continues with cough wheeze and shortness of breath. No fever noted. No sick contacts reported. Notes using inhaler or nebulizer once or twice daily. Notes GI upset on prednisone. 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 No reported PFTs. Smoking: Thinking about quitting but has not yet done so CXR: Not yet completed. She notes her loss has decreased, improving. Review of Systems HENT: Negative. Respiratory: Positive for cough, shortness of breath and wheezing. Objective LMP 07/15/2020 Physical Exam Vitals and nursing note reviewed. Constitutional: Appearance: Normal appearance. HENT: Head: Normocephalic and atraumatic. Right Ear: Tympanic membrane and ear canal normal. Left Ear: Tympanic membrane and ear canal normal. Nose: Mucosal edema present. Mouth/Throat: Lips: Kam[place]. Mouth: Mucous membranes are moist. Pharynx: Posterior oropharyngeal erythema present. No pharyngeal swelling, oropharyngeal exudate or uvula swelling. Tonsils: No tonsillar exudate or tonsillar abscesses. Eyes: Conjunctiva/sclera: Conjunctivae normal. Cardiovascular: Rate and Rhythm: Normal rate and regular rhythm. Heart sounds: Normal heart sounds. Pulmonary: Effort: Pulmonary effort is normal. Breath sounds: Normal breath sounds. Skin: General: Skin is warm and dry. Neurological: Mental Status: She is alert. ALLERGIES No Known Allergies Medication albuterol HFA (VENTOLIN HFA) 90 mcg/actuation inhaler Inhale 2 Puffs as instructed every 4 hours as needed for wheezing/shortness of breath. ibuprofen (MOTRIN) 600 mg tablet Take 1 tablet by mouth every 6 hours as needed for pain. etonogestrel (NEXPLANON) subdermal implant 68 mg 1 Each by SUBDERMAL route as directed. PAST MEDICAL HISTORY Diagnosis Date Anemia WITH Social History Tobacco Use Smoking status: Current Every Day Smoker Packs/day: 0.50 Years: 5.00 Pack years: 2.50 Types: Cigarettes Smokeless tobacco: Never Used Vaping Use Vaping Use: Never used Substance Use Topics Alcohol use: No Drug use: No ASSESSMENT/PLAN: 1. Cough - ICD9: 786.2, ICD10: R05.9 (primary diagnosis) 2. Shortness of breath - ICD9: 786.05, ICD10: R06.02 She notes GI upset on prednisone and other medications that she was previously taking. Recommend mild diet and take all medication with food. Add famotidine daily until medications are completed. - PREDNISONE 10 MG TABLET - SPIROMETRY WITH DILATOR IF OBSTRUCTED - CONSULT TO PULM/CRITICAL CARE Advised: Start taking prednisone. Take in the morning with breakfast. Do not take on an empty stomach. Start taking famotidine to help protect your stomach while taking prednisone. Use albuterol inhaler or nebulizer every 4-6 hours while you are awake to help with breathing. Let us know if you are not continuing to feel improved with treatment. Try to quit smoking Cecily Chase APRN.PATIENT INTAKE COORDINATOR Medical Decision Making: Problems: Low: Acute, uncomplicated illness or injury Data: Unique test(s) ordered: 1 Risk: Moderate: Drug management Medical Decision Making Level: 3 - Low documented in this encounter [facility] documented as of this encounter (statuses as of 06/09/2021) [facility] History of Past illness Narrative* Problem Noted Date Resolved Date Obesity in 11/16/2018 08/09/2019 Overview: 11/16/2018Patient is obese. Will plan on GCT@ NOB. TKRN Patient request for diagnostic testing 9 08/09/2019 Overview: 11/16/2018Patient desires nuchal ultrasound. Declines genetic carrier screening testing. TKRN Tobacco use during , antepartum 013 08/09/2019 Overview: 11/16/2018Pt smokes 1/2 pack a day of cigarettes, down from 1ppd. Discussed risks of smoking during . Advised pt to quit. TKRN Family history of congenital heart defect 201212/19/2013 Overview: 03/12/2013 FOB's uncle born with a hole in his heart. Corrective surgery was done.TKRN Previous section 03/12/20132019 Overview: 11/16/2018Pt had two previous C sections. She desires a repeat C section by Dr Yarbrough.Desires tubal ligation. TKRN Pelvic pain in female 10/28/2011 08/15/2012 Surveillance of previously p rescribed intrauterine contraceptive device 08/04/2010 08/15/2012 Nausea with vomiting 04/20/2010 08/15/2012 Headache(784.0) 04/20/2010 08/15/2012 Supervision of other high-risk (V23.89) 12/01/2009 06/05/2010 Pain in joint, forearm 09/12/2008 3 documented as of this encounter (statuses as of 06/30/2021) [facility] History of Past illness Narrative* Problem Noted Date Resolved Date Obesity in 11/16/2018 08/09/2019 Overview: 11/16/2018Patient is obese. Will plan on GCT@ NOB. TKRN Patient request for diagnostic testing 9 08/09/2019 Overview: 11/16/2018Patient desires nuchal ultrasound. Declines genetic carrier screening testing. TKRN Tobacco use during , antepartum 013 08/09/2019 Overview: 11/16/2018Pt smokes 1/2 pack a day of cigarettes, down from 1ppd. Discussed risks of smoking during . Advised pt to quit. TKRN Family history of congenital heart defect 201212/19/2013 Overview: 03/12/2013 FOB's uncle born with a hole in his heart. Corrective surgery was done.TKRN Previous section 03/12/20132019 Overview: 11/16/2018Pt had two previous C sections. She desires a repeat C section by Dr Yarbrough.Desires tubal ligation. TKRN Pelvic pain in female 10/28/2011 08/15/2012 Surveillance of previously p rescribed intrauterine contraceptive device 08/04/2010 08/15/2012 Nausea with vomiting 04/20/2010 08/15/2012 Headache(784.0) 04/20/2010 08/15/2012 Supervision of other high-risk (V23.89) 12/01/2009 06/05/2010 Pain in joint, forearm 09/12/2008 3 documented as of this encounter (statuses as of 2021) [facility] History of Past illness Narrative* Problem Noted Date Resolved Date Obesity in 11/16/2018 08/09/2019 Overview: 11/16/2018Patient is obese. Will plan on GCT@ NOB. TKRN Patient request for diagnostic testing 9 08/09/2019 Overview: 11/16/2018Patient desires nuchal ultrasound. Declines genetic carrier screening testing. TKRN Tobacco use during , antepartum 013 08/09/2019 Overview: 11/16/2018Pt smokes 1/2 pack a day of cigarettes, down from 1ppd. Discussed risks of smoking during . Advised pt to quit. TKRN Family history of congenital heart defect 201212/19/2013 Overview: 03/12/2013 FOB's uncle born with a hole in his heart. Corrective surgery was done.TKRN Previous section 03/12/20132019 Overview: 11/16/2018Pt had two previous C sections. She desires a repeat C section by Dr Yarbrough.Desires tubal ligation. TKRN Pelvic pain in female 10/28/2011 08/15/2012 Surveillance of previously p rescribed intrauterine contraceptive device 08/04/2010 08/15/2012 Nausea with vomiting 04/20/2010 08/15/2012 Headache(784.0) 04/20/2010 08/15/2012 Supervision of other high-risk (V23.89) 12/01/2009 06/05/2010 Pain in joint, forearm 09/12/2008 3 documented as of this encounter (statuses as of 2021) [facility] History of Past illness Narrative* Problem Noted Date Resolved Date Obesity in 11/16/2018 08/09/2019 Overview: 11/16/2018Patient is obese. Will plan on GCT@ NOB. TKRN Patient request for diagnostic testing 08/09/2019 Overview: 11/16/2018Patient desires nuchal ultrasound. Declines genetic carrier screening testing. TKRN Tobacco use during , antepartum 013 08/09/2019 Overview: 11/16/2018Pt smokes 1/2 pack a day of cigarettes, down from 1ppd. Discussed risks of smoking during . Advised pt to quit. TKRN Family history of congenital heart defect 201212/19/2013 Overview: 03/12/2013 FOB's uncle born with a hole in his heart. Corrective surgery was done.TKRN Previous section 03/12/20132019 Overview: 11/16/2018Pt had two previous C sections. She desires a repeat C section by Dr Yarbrough.Desires tubal ligation. TKRN Pelvic pain in female 10/28/2011 08/15/2012 Surveillance of previously p rescribed intrauterine contraceptive device 08/04/2010 08/15/2012 Nausea with vomiting 04/20/2010 08/15/2012 Headache(784.0) 04/20/2010 08/15/2012 Supervision of other high-risk (V23.89) 12/01/2009 06/05/2010 Pain in joint, forearm 09/12/2008 3 documented as of this encounter (statuses as of 08/21/2021) [facility] History of Past illness Narrative* Problem Noted Date Resolved Date Obesity in 11/16/2018 08/09/2019 Overview: 11/16/2018Patient is obese. Will plan on GCT@ NOB. TKRN Patient request for diagnostic testing 08/09/2019 Overview: 11/16/2018Patient desires nuchal ultrasound. Declines genetic carrier screening testing. TKRN Tobacco use during , antepartum 08/09/2019 Overview: 11/16/2018Pt smokes 1/2 pack a day of cigarettes, down from 1ppd. Discussed risks of smoking during . Advised pt to quit. TKRN Family history of congenital heart defect 201212/19/2013 Overview: 03/12/2013 FOB's uncle born with a hole in his heart. Corrective surgery was done.TKRN Previous section 03/12/20132019 Overview: 11/16/2018Pt had two previous C sections. She desires a repeat C section by Dr Yarbrough.Desires tubal ligation. TKRN Pelvic pain in female 10/28/2011 08/15/2012 Surveillance of previously p rescribed intrauterine contraceptive device 08/04/2010 08/15/2012 Nausea with vomiting 04/20/2010 08/15/2012 Headache(784.0) 04/20/2010 08/15/2012 Supervision of other high-risk (V23.89) 12/01/2009 06/05/2010 Pain in joint, forearm 09/12/2008 3 documented as of this encounter (statuses as of 08/21/2021) [facility] History of Past illness Narrative* Problem Noted Date Resolved Date Obesity in 11/16/2018 08/09/2019 Overview: 11/16/2018Patient is obese. Will plan on GCT@ NOB. TKRN Patient request for diagnostic testing 9 08/09/2019 Overview: 11/16/2018Patient desires nuchal ultrasound. Declines genetic carrier screening testing. TKRN Tobacco use during , antepartum 013 08/09/2019 Overview: 11/16/2018Pt smokes 1/2 pack a day of cigarettes, down from 1ppd. Discussed risks of smoking during . Advised pt to quit. TKRN Family history of congenital heart defect 201212/19/2013 Overview: 03/12/2013 FOB's uncle born with a hole in his heart. Corrective surgery was done.TKRN Previous section 03/12/20132019 Overview: 11/16/2018Pt had two previous C sections. She desires a repeat C section by Dr Yarbrough.Desires tubal ligation. TKRN Pelvic pain in female 10/28/2011 08/15/2012 Surveillance of previously p rescribed intrauterine contraceptive device 08/04/2010 08/15/2012 Nausea with vomiting 04/20/2010 08/15/2012 Headache(784.0) 04/20/2010 08/15/2012 Supervision of other high-risk (V23.89) 12/01/2009 06/05/2010 Pain in joint, forearm 09/12/2008 3 documented as of this encounter (statuses as of 09/03/2021) [facility] of Past illness Narrative* Problem Noted Date Resolved Date Obesity in 11/16/2018 08/09/2019 Overview: 11/16/2018Patient is obese. Will plan on GCT@ NOB. TKRN Patient request for diagnostic testing 9 08/09/2019 Overview: 11/16/2018Patient desires nuchal ultrasound. Declines genetic carrier screening testing. TKRN Tobacco use during , antepartum 013 08/09/2019 Overview: 11/16/2018Pt smokes 1/2 pack a day of cigarettes, down from 1ppd. Discussed risks of smoking during . Advised pt to quit. TKRN Family history of congenital heart defect 201212/19/2013 Overview: 03/12/2013 FOB's uncle born with a hole in his heart. Corrective surgery was done.TKRN Previous section 03/12/20132019 Overview: 11/16/2018Pt had two previous C sections. She desires a repeat C section by Dr Yarbrough.Desires tubal ligation. TKRN Pelvic pain in female 10/28/2011 08/15/2012 Surveillance of previously p rescribed intrauterine contraceptive device 08/04/2010 08/15/2012 Nausea with vomiting 04/20/2010 08/15/2012 Headache(784.0) 04/20/2010 08/15/2012 Supervision of other high-risk (V23.89) 12/01/2009 06/05/2010 Pain in joint, forearm 09/12/2008 3 documented as of this encounter (statuses as of 09/07/2021) [facility] of Past illness Narrative* Problem Noted Date Resolved Date Obesity in 11/16/2018 08/09/2019 Overview: 11/16/2018Patient is obese. Will plan on GCT@ NOB. TKRN Patient request for diagnostic testing 9 08/09/2019 Overview: 11/16/2018Patient desires nuchal ultrasound. Declines genetic carrier screening testing. TKRN Tobacco use during , antepartum 013 08/09/2019 Overview: 11/16/2018Pt smokes 1/2 pack a day of cigarettes, down from 1ppd. Discussed risks of smoking during . Advised pt to quit. TKRN Family history of congenital heart defect 201212/19/2013 Overview: 03/12/2013 FOB's uncle born with a hole in his heart. Corrective surgery was done.TKRN Previous section 03/12/20132019 Overview: 11/16/2018Pt had two previous C sections. She desires a repeat C section by Dr Yarbrough.Desires tubal ligation. TKRN Pelvic pain in female 10/28/2011 08/15/2012 Surveillance of previously p rescribed intrauterine contraceptive device 08/04/2010 08/15/2012 Nausea with vomiting 04/20/2010 08/15/2012 Headache(784.0) 04/20/2010 08/15/2012 Supervision of other high-risk (V23.89) 12/01/2009 06/05/2010 Pain in joint, forearm 09/12/2008 3 documented as of this encounter (statuses as of 09/07/2021) [facility] of Past illness Narrative* Problem Noted Date Resolved Date Obesity in 11/16/2018 08/09/2019 Overview: 11/16/2018Patient is obese. Will plan on GCT@ NOB. TKRN Patient request for diagnostic testing 9 08/09/2019 Overview: 11/16/2018Patient desires nuchal ultrasound. Declines genetic carrier screening testing. TKRN Tobacco use during , antepartum 013 08/09/2019 Overview: 11/16/2018Pt smokes 1/2 pack a day of cigarettes, down from 1ppd. Discussed risks of smoking during . Advised pt to quit. TKRN Family history of congenital heart defect 201212/19/2013 Overview: 03/12/2013 FOB's uncle born with a hole in his heart. Corrective surgery was done.TKRN Previous section 03/12/20132019 Overview: 11/16/2018Pt had two previous C sections. She desires a repeat C section by Dr Yarbrough.Desires tubal ligation. TKRN Pelvic pain in female 10/28/2011 08/15/2012 Surveillance of previously p rescribed intrauterine contraceptive device 08/04/2010 08/15/2012 Nausea with vomiting 04/20/2010 08/15/2012 Headache(784.0) 04/20/2010 08/15/2012 Supervision of other high-risk (V23.89) 12/01/2009 06/05/2010 Pain in joint, forearm 09/12/2008 3 documented as of this encounter (statuses as of 11/11/2021) [facility] of Past illness Narrative* Problem Noted Date Resolved Date Obesity in 11/16/2018 08/09/2019 Overview: 11/16/2018Patient is obese. Will plan on GCT@ NOB. TKRN Patient request for diagnostic testing 9 08/09/2019 Overview: 11/16/2018Patient desires nuchal ultrasound. Declines genetic carrier screening testing. TKRN Tobacco use during , antepartum 013 08/09/2019 Overview: 11/16/2018Pt smokes 1/2 pack a day of cigarettes, down from 1ppd. Discussed risks of smoking during . Advised pt to quit. TKRN Family history of congenital heart defect 201212/19/2013 Overview: 03/12/2013 FOB's uncle born with a hole in his heart. Corrective surgery was done.TKRN Previous section 03/12/20132019 Overview: 11/16/2018Pt had two previous C sections. She desires a repeat C section by Dr Yarbrough.Desires tubal ligation. TKRN Pelvic pain in female 10/28/2011 08/15/2012 Surveillance of previously p rescribed intrauterine contraceptive device 08/04/2010 08/15/2012 Nausea with vomiting 04/20/2010 08/15/2012 Headache(784.0) 04/20/2010 08/15/2012 Supervision of other high-risk (V23.89) 12/01/2009 06/05/2010 Pain in joint, forearm 09/12/2008 3 documented as of this encounter (statuses as of 12/25/2021) [facility] Narrative* Problem Noted Date Resolved Date Obesity in 11/16/2018 08/09/2019 Overview: 11/16/2018Patient is obese. Will plan on GCT@ NOB. TKRN Patient request for diagnostic testing 9 08/09/2019 Overview: 11/16/2018Patient desires nuchal ultrasound. Declines genetic carrier screening testing. TKRN Tobacco use during , antepartum 013 08/09/2019 Overview: 11/16/2018Pt smokes 1/2 pack a day of cigarettes, down from 1ppd. Discussed risks of smoking during . Advised pt to quit. TKRN Family history of congenital heart defect 201212/19/2013 Overview: 03/12/2013 FOB's uncle born with a hole in his heart. Corrective surgery was done.TKRN Previous section 03/12/20132019 Overview: 11/16/2018Pt had two previous C sections. She desires a repeat C section by Dr Yarbrough.Desires tubal ligation. TKRN Pelvic pain in female 10/28/2011 08/15/2012 Surveillance of previously p rescribed intrauterine contraceptive device 08/04/2010 08/15/2012 Nausea with vomiting 04/20/2010 08/15/2012 Headache(784.0) 04/20/2010 08/15/2012 Supervision of other high-risk (V23.89) 12/01/2009 06/05/2010 Pain in joint, forearm 09/12/2008 3 documented as of this encounter (statuses as of 02/09/2022) [facility] Narrative* Problem Noted Date Resolved Date Obesity in 11/16/2018 08/09/2019 Overview: 11/16/2018Patient is obese. Will plan on GCT@ NOB. TKRN Patient request for diagnostic testing 9 08/09/2019 Overview: 11/16/2018Patient desires nuchal ultrasound. Declines genetic carrier screening testing. TKRN Tobacco use during , antepartum 013 08/09/2019 Overview: 11/16/2018Pt smokes 1/2 pack a day of cigarettes, down from 1ppd. Discussed risks of smoking during . Advised pt to quit. TKRN Family history of congenital heart defect 201212/19/2013 Overview: 03/12/2013 FOB's uncle born with a hole in his heart. Corrective surgery was done.TKRN Previous section 03/12/20132019 Overview: 11/16/2018Pt had two previous C sections. She desires a repeat C section by Dr Yarbrough.Desires tubal ligation. TKRN Pelvic pain in female 10/28/2011 08/15/2012 Surveillance of previously p rescribed intrauterine contraceptive device 08/04/2010 08/15/2012 Nausea with vomiting 04/20/2010 08/15/2012 Headache(784.0) 04/20/2010 08/15/2012 Supervision of other high-risk (V23.89) 12/01/2009 06/05/2010 Pain in joint, forearm 09/12/2008 3 documented as of this encounter (statuses as of 03/17/2022) [facility] Narrative* Problem Noted Date Resolved Date Obesity in 11/16/2018 08/09/2019 Overview: 11/16/2018Patient is obese. Will plan on GCT@ NOB. TKRN Patient request for diagnostic testing 9 08/09/2019 Overview: 11/16/2018Patient desires nuchal ultrasound. Declines genetic carrier screening testing. TKRN Tobacco use during , antepartum 013 08/09/2019 Overview: 11/16/2018Pt smokes 1/2 pack a day of cigarettes, down from 1ppd. Discussed risks of smoking during . Advised pt to quit. TKRN Family history of congenital heart defect 201212/19/2013 Overview: 03/12/2013 FOB's uncle born with a hole in his heart. Corrective surgery was done.TKRN Previous section 03/12/20132019 Overview: 11/16/2018Pt had two previous C sections. She desires a repeat C section by Dr Yarbrough.Desires tubal ligation. TKRN Pelvic pain in female 10/28/2011 08/15/2012 Surveillance of previously p rescribed intrauterine contraceptive device 08/04/2010 08/15/2012 Nausea with vomiting 04/20/2010 08/15/2012 Headache(784.0) 04/20/2010 08/15/2012 Supervision of other high-risk (V23.89) 12/01/2009 06/05/2010 Pain in joint, forearm 09/12/2008 3 documented as of this encounter (statuses as of 03/19/2022) [facility] Narrative* Problem Noted Date Resolved Date Obesity in 11/16/2018 08/09/2019 Overview: 11/16/2018Patient is obese. Will plan on GCT@ NOB. TKRN Patient request for diagnostic testing 9 08/09/2019 Overview: 11/16/2018Patient desires nuchal ultrasound. Declines genetic carrier screening testing. TKRN Tobacco use during , antepartum 013 08/09/2019 Overview: 11/16/2018Pt smokes 1/2 pack a day of cigarettes, down from 1ppd. Discussed risks of smoking during . Advised pt to quit. TKRN Family history of congenital heart defect 201212/19/2013 Overview: 03/12/2013 FOB's uncle born with a hole in his heart. Corrective surgery was done.TKRN Previous section 03/12/20132019 Overview: 11/16/2018Pt had two previous C sections. She desires a repeat C section by Dr Yarbrough.Desires tubal ligation. TKRN Pelvic pain in female 10/28/2011 08/15/2012 Surveillance of previously p rescribed intrauterine contraceptive device 08/04/2010 08/15/2012 Nausea with vomiting 04/20/2010 08/15/2012 Headache(784.0) 04/20/2010 08/15/2012 Supervision of other high-risk (V23.89) 12/01/2009 06/05/2010 Pain in joint, forearm 09/12/2008 3 documented as of this encounter (statuses as of 03/23/2022) [facility] Narrative* Problem Noted Date Resolved Date Obesity in 11/16/2018 08/09/2019 Overview: 11/16/2018Patient is obese. Will plan on GCT@ NOB. TKRN Patient request for diagnostic testing 9 08/09/2019 Overview: 11/16/2018Patient desires nuchal ultrasound. Declines genetic carrier screening testing. TKRN Tobacco use during , antepartum 013 08/09/2019 Overview: 11/16/2018Pt smokes 1/2 pack a day of cigarettes, down from 1ppd. Discussed risks of smoking during . Advised pt to quit. TKRN Family history of congenital heart defect 201212/19/2013 Overview: 03/12/2013 FOB's uncle born with a hole in his heart. Corrective surgery was done.TKRN Previous section 03/12/20132019 Overview: 11/16/2018Pt had two previous C sections. She desires a repeat C section by Dr Yarbrough.Desires tubal ligation. TKRN Pelvic pain in female 10/28/2011 08/15/2012 Surveillance of previously p rescribed intrauterine contraceptive device 08/04/2010 08/15/2012 Nausea with vomiting 04/20/2010 08/15/2012 Headache(784.0) 04/20/2010 08/15/2012 Supervision of other high-risk (V23.89) 12/01/2009 06/05/2010 Pain in joint, forearm 09/12/2008 3 documented as of this encounter (statuses as of 03/24/2022) [facility] Narrative* Problem Noted Date Resolved Date Obesity in 11/16/2018 08/09/2019 Overview: 11/16/2018Patient is obese. Will plan on GCT@ NOB. TKRN Patient request for diagnostic testing 9 08/09/2019 Overview: 11/16/2018Patient desires nuchal ultrasound. Declines genetic carrier screening testing. TKRN Tobacco use during , antepartum 013 08/09/2019 Overview: 11/16/2018Pt smokes 1/2 pack a day of cigarettes, down from 1ppd. Discussed risks of smoking during . Advised pt to quit. TKRN Family history of congenital heart defect 201212/19/2013 Overview: 03/12/2013 FOB's uncle born with a hole in his heart. Corrective surgery was done.TKRN Previous section 03/12/20132019 Overview: 11/16/2018Pt had two previous C sections. She desires a repeat C section by Dr Yarbrough.Desires tubal ligation. TKRN Pelvic pain in female 10/28/2011 08/15/2012 Surveillance of previously p rescribed intrauterine contraceptive device 08/04/2010 08/15/2012 Nausea with vomiting 04/20/2010 08/15/2012 Headache(784.0) 04/20/2010 08/15/2012 Supervision of other high-risk (V23.89) 12/01/2009 06/05/2010 Pain in joint, forearm 09/12/2008 3 documented as of this encounter (statuses as of 03/30/2022) [facility] History of Past illness Narrative* Problem Noted Date Resolved Date Obesity in 11/16/2018 08/09/2019 Overview: 11/16/2018Patient is obese. Will plan on GCT@ NOB. TKRN Patient request for diagnostic testing 9 08/09/2019 Overview: 11/16/2018Patient desires nuchal ultrasound. Declines genetic carrier screening testing. TKRN Tobacco use during , antepartum 013 08/09/2019 Overview: 11/16/2018Pt smokes 1/2 pack a day of cigarettes, down from 1ppd. Discussed risks of smoking during . Advised pt to quit. TKRN Family history of congenital heart defect 201212/19/2013 Overview: 03/12/2013 FOB's uncle born with a hole in his heart. Corrective surgery was done.TKRN Previous section 03/12/20132019 Overview: 11/16/2018Pt had two previous C sections. She desires a repeat C section by Dr Yarbrough.Desires tubal ligation. TKRN Pelvic pain in female 10/28/2011 08/15/2012 Surveillance of previously p rescribed intrauterine contraceptive device 08/04/2010 08/15/2012 Nausea with vomiting 04/20/2010 08/15/2012 Headache(784.0) 04/20/2010 08/15/2012 Supervision of other high-risk (V23.89) 12/01/2009 06/05/2010 Pain in joint, forearm 09/12/2008 3 documented as of this encounter (statuses as of 04/12/2022) [facility] History of Past illness Narrative* Problem Noted Date Resolved Date Obesity in 11/16/2018 08/09/2019 Overview: 11/16/2018Patient is obese. Will plan on GCT@ NOB. TKRN Patient request for diagnostic testing 9 08/09/2019 Overview: 11/16/2018Patient desires nuchal ultrasound. Declines genetic carrier screening testing. TKRN Tobacco use during , antepartum 013 08/09/2019 Overview: 11/16/2018Pt smokes 1/2 pack a day of cigarettes, down from 1ppd. Discussed risks of smoking during . Advised pt to quit. TKRN Family history of congenital heart defect 201212/19/2013 Overview: 03/12/2013 FOB's uncle born with a hole in his heart. Corrective surgery was done.TKRN Previous section 03/12/20132019 Overview: 11/16/2018Pt had two previous C sections. She desires a repeat C section by Dr Yarbrough.Desires tubal ligation. TKRN Pelvic pain in female 10/28/2011 08/15/2012 Surveillance of previously p rescribed intrauterine contraceptive device 08/04/2010 08/15/2012 Nausea with vomiting 04/20/2010 08/15/2012 Headache(784.0) 04/20/2010 08/15/2012 Supervision of other high-risk (V23.89) 12/01/2009 06/05/2010 Pain in joint, forearm 09/12/2008 3 documented as of this encounter (statuses as of 05/27/2022) [facility] History of Past illness Narrative* Problem Noted Date Resolved Date Obesity in 11/16/2018 08/09/2019 Overview: 11/16/2018Patient is obese. Will plan on GCT@ NOB. TKRN Patient request for diagnostic testing 9 08/09/2019 Overview: 11/16/2018Patient desires nuchal ultrasound. Declines genetic carrier screening testing. TKRN Tobacco use during , antepartum 013 08/09/2019 Overview: 11/16/2018Pt smokes 1/2 pack a day of cigarettes, down from 1ppd. Discussed risks of smoking during . Advised pt to quit. TKRN Family history of congenital heart defect 201212/19/2013 Overview: 03/12/2013 FOB's uncle born with a hole in his heart. Corrective surgery was done.TKRN Previous section 03/12/20132019 Overview: 11/16/2018Pt had two previous C sections. She desires a repeat C section by Dr Yarbrough.Desires tubal ligation. TKRN Pelvic pain in female 10/28/2011 08/15/2012 Surveillance of previously p rescribed intrauterine contraceptive device 08/04/2010 08/15/2012 Nausea with vomiting 04/20/2010 08/15/2012 Headache(784.0) 04/20/2010 08/15/2012 Supervision of other high-risk (V23.89) 12/01/2009 06/05/2010 Pain in joint, forearm 09/12/2008 3 documented as of this encounter (statuses as of 06/10/2022) [facility] History of Past illness Narrative* Problem Noted Date Resolved Date Obesity in 11/16/2018 08/09/2019 Overview: 11/16/2018Patient is obese. Will plan on GCT@ NOB. TKRN Patient request for diagnostic testing 9 08/09/2019 Overview: 11/16/2018Patient desires nuchal ultrasound. Declines genetic carrier screening testing. TKRN Tobacco use during , antepartum 013 08/09/2019 Overview: 11/16/2018Pt smokes 1/2 pack a day of cigarettes, down from 1ppd. Discussed risks of smoking during . Advised pt to quit. TKRN Family history of congenital heart defect 201212/19/2013 Overview: 03/12/2013 FOB's uncle born with a hole in his heart. Corrective surgery was done.TKRN Previous section 03/12/20132019 Overview: 11/16/2018Pt had two previous C sections. She desires a repeat C section by Dr Yarbrough.Desires tubal ligation. TKRN Pelvic pain in female 10/28/2011 08/15/2012 Surveillance of previously p rescribed intrauterine contraceptive device 08/04/2010 08/15/2012 Nausea with vomiting 04/20/2010 08/15/2012 Headache(784.0) 04/20/2010 08/15/2012 Supervision of other high-risk (V23.89) 12/01/2009 06/05/2010 Pain in joint, forearm 09/12/2008 3 documented as of this encounter (statuses as of 06/24/2022) [facility] History of Past illness Narrative* Problem Noted Date Resolved Date Obesity in 11/16/2018 08/09/2019 Overview: 11/16/2018Patient is obese. Will plan on GCT@ NOB. TKRN Patient request for diagnostic testing 9 08/09/2019 Overview: 11/16/2018Patient desires nuchal ultrasound. Declines genetic carrier screening testing. TKRN Tobacco use during , antepartum 013 08/09/2019 Overview: 11/16/2018Pt smokes 1/2 pack a day of cigarettes, down from 1ppd. Discussed risks of smoking during . Advised pt to quit. TKRN Family history of congenital heart defect 201212/19/2013 Overview: 03/12/2013 FOB's uncle born with a hole in his heart. Corrective surgery was done.TKRN Previous section 03/12/20132019 Overview: 11/16/2018Pt had two previous C sections. She desires a repeat C section by Dr Yarbrough.Desires tubal ligation. TKRN Pelvic pain in female 10/28/2011 08/15/2012 Surveillance of previously p rescribed intrauterine contraceptive device 08/04/2010 08/15/2012 Nausea with vomiting 04/20/2010 08/15/2012 Headache(784.0) 04/20/2010 08/15/2012 Supervision of other high-risk (V23.89) 12/01/2009 06/05/2010 Pain in joint, forearm 09/12/2008 3 documented as of this encounter (statuses as of 06/28/2022) [facility] of Past illness Narrative* Problem Noted Date Resolved Date Obesity in 11/16/2018 08/09/2019 Overview: 11/16/2018Patient is obese. Will plan on GCT@ NOB. TKRN Patient request for diagnostic testing 9 08/09/2019 Overview: 11/16/2018Patient desires nuchal ultrasound. Declines genetic carrier screening testing. TKRN Tobacco use during , antepartum 013 08/09/2019 Overview: 11/16/2018Pt smokes 1/2 pack a day of cigarettes, down from 1ppd. Discussed risks of smoking during . Advised pt to quit. TKRN Family history of congenital heart defect 201212/19/2013 Overview: 03/12/2013 FOB's uncle born with a hole in his heart. Corrective surgery was done.TKRN Previous section 03/12/20132019 Overview: 11/16/2018Pt had two previous C sections. She desires a repeat C section by Dr Yarbrough.Desires tubal ligation. TKRN Pelvic pain in female 10/28/2011 08/15/2012 Surveillance of previously p rescribed intrauterine contraceptive device 08/04/2010 08/15/2012 Nausea with vomiting 04/20/2010 08/15/2012 Headache(784.0) 04/20/2010 08/15/2012 Supervision of other high-risk (V23.89) 12/01/2009 06/05/2010 Pain in joint, forearm 09/12/2008 3 documented as of this encounter (statuses as of 06/29/2022) [facility] of Past illness Narrative* Problem Noted Date Resolved Date Obesity in 11/16/2018 08/09/2019 Overview: 11/16/2018Patient is obese. Will plan on GCT@ NOB. TKRN Patient request for diagnostic testing 9 08/09/2019 Overview: 11/16/2018Patient desires nuchal ultrasound. Declines genetic carrier screening testing. TKRN Tobacco use during , antepartum 013 08/09/2019 Overview: 11/16/2018Pt smokes 1/2 pack a day of cigarettes, down from 1ppd. Discussed risks of smoking during . Advised pt to quit. TKRN Family history of congenital heart defect 201212/19/2013 Overview: 03/12/2013 FOB's uncle born with a hole in his heart. Corrective surgery was done.TKRN Previous section 03/12/20132019 Overview: 11/16/2018Pt had two previous C sections. She desires a repeat C section by Dr Yarbrough.Desires tubal ligation. TKRN Pelvic pain in female 10/28/2011 08/15/2012 Surveillance of previously p rescribed intrauterine contraceptive device 08/04/2010 08/15/2012 Nausea with vomiting 04/20/2010 08/15/2012 Headache(784.0) 04/20/2010 08/15/2012 Supervision of other high-risk (V23.89) 12/01/2009 06/05/2010 Pain in joint, forearm 09/12/2008 3 documented as of this encounter (statuses as of 07/13/2022) [facility] History of Past illness Narrative* Problem Noted Date Resolved Date Obesity in 11/16/2018 08/09/2019 Overview: 11/16/2018Patient is obese. Will plan on GCT@ NOB. TKRN Patient request for diagnostic testing 9 08/09/2019 Overview: 11/16/2018Patient desires nuchal ultrasound. Declines genetic carrier screening testing. TKRN Tobacco use during , antepartum 013 08/09/2019 Overview: 11/16/2018Pt smokes 1/2 pack a day of cigarettes, down from 1ppd. Discussed risks of smoking during . Advised pt to quit. TKRN Family history of congenital heart defect 201212/19/2013 Overview: 03/12/2013 FOB's uncle born with a hole in his heart. Corrective surgery was done.TKRN Previous section 03/12/20132019 Overview: 11/16/2018Pt had two previous C sections. She desires a repeat C section by Dr Yarbrough.Desires tubal ligation. TKRN Pelvic pain in female 10/28/2011 08/15/2012 Surveillance of previously p rescribed intrauterine contraceptive device 08/04/2010 08/15/2012 Nausea with vomiting 04/20/2010 08/15/2012 Headache(784.0) 04/20/2010 08/15/2012 Supervision of other high-risk (V23.89) 12/01/2009 06/05/2010 Pain in joint, forearm 09/12/2008 3 documented as of this encounter (statuses as of 07/16/2022) [facility] of Past illness Narrative* Problem Noted Date Diagnosed Date Resolved Date Obesity in 11/16/2018 020 Overview: 11/16/2018Patient is obese. Will plan on GCT@ NOB. TKRN Patient request for diagnostic testing 11/16/2018 08/09/2019 Overview: 11/16/2018Patient desires nuchal ultrasound. Declines genetic carrier screening testing. TKRN Tobacco use during , antepartum 03/12/2013 08/09/2019 Overview: 11/16/2018Pt smokes 1/2 pack a day of cigarettes, down from 1ppd. Discussed risks of smoking during . Advised pt to quit. TKRN Family history of congenital heart defect 03/12/2013 12/19/2013 Overview: 03/12/2013 FOB's uncle born with a hole in his heart. Corrective surgery was done.TKRN Previous section 03/12/2013 Overview: 11/16/2018Pt had two previous C sections. She desires a repeat C section by Dr Yarbrough.Desires tubal ligation. TKRN Pelvic pain in female 10/28/20112012 Surveillance of previously p rescribed intrauterine contraceptive device 08/04/20102012 Nausea with vomiting 04/20/2010 013 Headache(784.0) 04/20/2010 08/15/2012 Supervision of other high-ri sk (V23.89) 12/01/2009 06/05/2010 Pain in joint, forearm 09/12/200808/15 documented as of this encounter (statuses as of 11/02/2022) [facility] of Past illness Narrative* Problem Noted Date Diagnosed Date Resolved Date Obesity in 11/16/2018 020 Overview: 11/16/2018Patient is obese. Will plan on GCT@ NOB. TKRN Patient request for diagnostic testing 11/16/2018 08/09/2019 Overview: 11/16/2018Patient desires nuchal ultrasound. Declines genetic carrier screening testing. TKRN Tobacco use during , antepartum 03/12/2013 08/09/2019 Overview: 11/16/2018Pt smokes 1/2 pack a day of cigarettes, down from 1ppd. Discussed risks of smoking during . Advised pt to quit. TKRN Family history of congenital heart defect 03/12/2013 12/19/2013 Overview: 03/12/2013 FOB's uncle born with a hole in his heart. Corrective surgery was done.TKRN Previous section 03/12/2013 Overview: 11/16/2018Pt had two previous C sections. She desires a repeat C section by Dr Yarbrough.Desires tubal ligation. TKRN Pelvic pain in female 10/28/20112012 Surveillance of previously p rescribed intrauterine contraceptive device 08/04/20102012 Nausea with vomiting 04/20/2010 013 Headache(784.0) 04/20/2010 08/15/2012 Supervision of other high-ri sk (V23.89) 12/01/2009 06/05/2010 Pain in joint, forearm 09/12/200808/15 documented as of this encounter (statuses as of 11/05/2022) [facility] of Past illness Narrative* Problem Noted Date Diagnosed Date Resolved Date Obesity in 11/16/2018 020 Overview: 11/16/2018Patient is obese. Will plan on GCT@ NOB. TKRN Patient request for diagnostic testing 11/16/2018 08/09/2019 Overview: 11/16/2018Patient desires nuchal ultrasound. Declines genetic carrier screening testing. TKRN Tobacco use during , antepartum 03/12/2013 08/09/2019 Overview: 11/16/2018Pt smokes 1/2 pack a day of cigarettes, down from 1ppd. Discussed risks of smoking during . Advised pt to quit. TKRN Family history of congenital heart defect 03/12/2013 12/19/2013 Overview: 03/12/2013 FOB's uncle born with a hole in his heart. Corrective surgery was done.TKRN Previous section 03/12/2013 Overview: 11/16/2018Pt had two previous C sections. She desires a repeat C section by Dr Yarbrough.Desires tubal ligation. TKRN Pelvic pain in female 10/28/20112012 Surveillance of previously p rescribed intrauterine contraceptive device 08/04/20102012 Nausea with vomiting 04/20/2010 013 Headache(784.0) 04/20/2010 08/15/2012 Supervision of other high-ri sk (V23.89) 12/01/2009 06/05/2010 Pain in joint, forearm 09/12/200808/15 documented as of this encounter (statuses as of 11/17/2022) [facility] of Past illness Narrative* Problem Noted Date Diagnosed Date Resolved Date Obesity in 11/16/2018 020 Overview: 11/16/2018Patient is obese. Will plan on GCT@ NOB. TKRN Patient request for diagnostic testing 11/16/2018 08/09/2019 Overview: 11/16/2018Patient desires nuchal ultrasound. Declines genetic carrier screening testing. TKRN Tobacco use during , antepartum 03/12/2013 08/09/2019 Overview: 11/16/2018Pt smokes 1/2 pack a day of cigarettes, down from 1ppd. Discussed risks of smoking during . Advised pt to quit. TKRN Family history of congenital heart defect 03/12/2013 12/19/2013 Overview: 03/12/2013 FOB's uncle born with a hole in his heart. Corrective surgery was done.TKRN Previous section 03/12/2013 Overview: 11/16/2018Pt had two previous C sections. She desires a repeat C section by Dr Yarbrough.Desires tubal ligation. TKRN Pelvic pain in female 10/28/20112012 Surveillance of previously p rescribed intrauterine contraceptive device 08/04/20102012 Nausea with vomiting 04/20/2010 013 Headache(784.0) 04/20/2010 08/15/2012 Supervision of other high-ri sk (V23.89) 12/01/2009 06/05/2010 Pain in joint, forearm 09/12/200808/15 documented as of this encounter (statuses as of 11/30/2022) [facility] Past illness Narrative* Problem Noted Date Diagnosed Date Resolved Date Obesity in 11/16/2018 020 Overview: 11/16/2018Patient is obese. Will plan on GCT@ NOB. TKRN Patient request for diagnostic testing 11/16/2018 08/09/2019 Overview: 11/16/2018Patient desires nuchal ultrasound. Declines genetic carrier screening testing. TKRN Tobacco use during , antepartum 03/12/2013 08/09/2019 Overview: 11/16/2018Pt smokes 1/2 pack a day of cigarettes, down from 1ppd. Discussed risks of smoking during . Advised pt to quit. TKRN Family history of congenital heart defect 03/12/2013 12/19/2013 Overview: 03/12/2013 FOB's uncle born with a hole in his heart. Corrective surgery was done.TKRN Previous section 03/12/2013 Overview: 11/16/2018Pt had two previous C sections. She desires a repeat C section by Dr Yarbrough.Desires tubal ligation. TKRN Pelvic pain in female 10/28/20112012 Surveillance of previously p rescribed intrauterine contraceptive device 08/04/20102012 Nausea with vomiting 04/20/2010 013 Headache(784.0) 04/20/2010 08/15/2012 Supervision of other high-ri sk (V23.89) 12/01/2009 06/05/2010 Pain in joint, forearm 09/12/200808/15 documented as of this encounter (statuses as of 12/24/2022) [facility] illness Narrative* Problem Noted Date Diagnosed Date Resolved Date Obesity in 11/16/2018 020 Overview: 11/16/2018Patient is obese. Will plan on GCT@ NOB. TKRN Patient request for diagnostic testing 11/16/2018 08/09/2019 Overview: 11/16/2018Patient desires nuchal ultrasound. Declines genetic carrier screening testing. TKRN Tobacco use during , antepartum 03/12/2013 08/09/2019 Overview: 11/16/2018Pt smokes 1/2 pack a day of cigarettes, down from 1ppd. Discussed risks of smoking during . Advised pt to quit. TKRN Family history of congenital heart defect 03/12/2013 12/19/2013 Overview: 03/12/2013 FOB's uncle born with a hole in his heart. Corrective surgery was done.TKRN Previous section 03/12/2013 Overview: 11/16/2018Pt had two previous C sections. She desires a repeat C section by Dr Yarbrough.Desires tubal ligation. TKRN Pelvic pain in female 10/28/20112012 Surveillance of previously p rescribed intrauterine contraceptive device 08/04/20102012 Nausea with vomiting 04/20/2010 013 Headache(784.0) 04/20/2010 08/15/2012 Supervision of other high-ri sk (V23.89) 12/01/2009 06/05/2010 Pain in joint, forearm 09/12/200808/15 documented as of this encounter (statuses as of 12/24/2022) [facility] Narrative* Problem Noted Date Diagnosed Date Resolved Date Obesity in 11/16/2018 020 Overview: 11/16/2018Patient is obese. Will plan on GCT@ NOB. TKRN Patient request for diagnostic testing 11/16/2018 08/09/2019 Overview: 11/16/2018Patient desires nuchal ultrasound. Declines genetic carrier screening testing. TKRN Tobacco use during , antepartum 03/12/2013 08/09/2019 Overview: 11/16/2018Pt smokes 1/2 pack a day of cigarettes, down from 1ppd. Discussed risks of smoking during . Advised pt to quit. TKRN Family history of congenital heart defect 03/12/2013 12/19/2013 Overview: 03/12/2013 FOB's uncle born with a hole in his heart. Corrective surgery was done.TKRN Previous section 03/12/2013 Overview: 11/16/2018Pt had two previous C sections. She desires a repeat C section by Dr Yarbrough.Desires tubal ligation. TKRN Pelvic pain in female 10/28/20112012 Surveillance of previously p rescribed intrauterine contraceptive device 08/04/20102012 Nausea with vomiting 04/20/2010 013 Headache(784.0) 04/20/2010 08/15/2012 Supervision of other high-ri sk (V23.89) 12/01/2009 06/05/2010 Pain in joint, forearm 09/12/200808/15 documented as of this encounter (statuses as of 01/31/2023) [facility] Narrative* Problem Noted Date Diagnosed Date Resolved Date Obesity in 11/16/2018 020 Overview: 11/16/2018Patient is obese. Will plan on GCT@ NOB. TKRN Patient request for diagnostic testing 11/16/2018 08/09/2019 Overview: 11/16/2018Patient desires nuchal ultrasound. Declines genetic carrier screening testing. TKRN Tobacco use during , antepartum 03/12/2013 08/09/2019 Overview: 11/16/2018Pt smokes 1/2 pack a day of cigarettes, down from 1ppd. Discussed risks of smoking during . Advised pt to quit. TKRN Family history of congenital heart defect 03/12/2013 12/19/2013 Overview: 03/12/2013 FOB's uncle born with a hole in his heart. Corrective surgery was done.TKRN Previous section 03/12/2013 Overview: 11/16/2018Pt had two previous C sections. She desires a repeat C section by Dr Yarbrough.Desires tubal ligation. TKRN Pelvic pain in female 10/28/20112012 Surveillance of previously p rescribed intrauterine contraceptive device 08/04/20102012 Nausea with vomiting 04/20/2010 013 Headache(784.0) 04/20/2010 08/15/2012 Supervision of other high-ri sk (V23.89) 12/01/2009 06/05/2010 Pain in joint, forearm 09/12/200808/15 documented as of this encounter (statuses as of 02/24/2023) [facility]- [facility] Shortness of [facility] Diagnosis Anxiety and depression- Primary Dysthymic disorder Encounter for immunization Need for other specified prophylactic vaccination against single bacterial disease [facility] Cough Shortness of breath [facility] Diagnosis Sciatica, right side- Primary [facility] Diagnosis Class 2 severe obesity with serious comorbidity and body mass index (BMI) of 35.0 to 35.9 in adult, unspecified obesity type (HCC)- Primary Anxiety and depression Dysthymic disorder [facility] Diagnosis Obesity (BMI 30-39.9)- Primary Obesity, unspecified Weight loss counseling, encounter for Dietary surveillance and counseling Chronic right-sided low back pain with right-sided sciatica [facility] Diagnosis Pelvic pain in female- Primary Unspecified symptom associated with female genital organs Deep dyspareunia Abnormal uterine bleeding (AUB) Encounter for screening for human papillomavirus (HPV) Special screening examination for human papillomavirus (HPV) Screening for cervical cancer Screening for malignant neoplasm of the cervix documented in this encounter [facility] note* Diagnosis 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- Primary documented in this encounter [facility] note* Diagnosis Cervical high risk HPV (human papillomavirus) test positive- Primary Cervical high risk human papillomavirus (HPV) DNA test positive Need for prophylactic vaccination/inoculation against viral disease Need for prophylactic vaccination and inoculation against other viral diseases [facility] Diagnosis Obesity (BMI 30-39.9) Obesity, unspecified [facility] Diagnosis Panic attacks- Primary Panic disorder without agoraphobia documented in this encounter [facility] note* Diagnosis Sore throat- Primary Acute pharyngitis Viral URI with cough Acute upper respiratory infections of unspecified site [facility] Diagnosis Wellness examination- Primary Anxiety and depression Dysthymic disorder Dysphagia, unspecified type Elevated BP without diagnosis of hypertension documented in this encounter [facility] note* Diagnosis Panic attacks Panic disorder without agoraphobia [facility] Diagnosis Anxiety and depression- Primary Dysthymic disorder Need for HPV vaccination Need for prophylactic vaccination and inoculation against other viral diseases [facility] Diagnosis Panic attack- Primary Panic disorder without agoraphobia [facility] Diagnosis Panic attacks Panic disorder without agoraphobia [facility] Diagnosis Anxiety and depression- Primary Dysthymic disorder Panic attacks Panic disorder without agoraphobia [facility] Diagnosis Mild intermittent asthmatic bronchitis without complication- Primary Rhonchi Abnormal chest sounds [facility] Diagnosis Obesity (BMI 30-39.9)- Primary Obesity, unspecified Class 2 severe obesity with serious comorbidity and body mass index (BMI) of 35.0 to 35.9 in adult, unspecified obesity type documented in this encounter [facility] for referral (narrative)* Diagnostic Procedure Only (Routine) - Authorized Specialty Diagnoses / Procedures Referred By Contac t Referred To Contact [facility] Diagnoses Pelvic pain in female Deep dyspareunia Abnormal uterine bleeding (AUB) Procedures PELVIC US WHI US PELVIC NONOBSTETRIC REAL-TIME IMAGE COMPLETE Amy Pineda MD [address] [place] [address] [address] Referral ID Status Reason Start Date Expiration Date Visits Requested Visits Authorized [id number] Authorized Auto-Generat ed Referral 03/18/2022 03/18/2023 1 1 [facility] Outpatient Procedure (Routine) - Authorized Specialty Diagnoses / Procedures Referred By Contac t Referred To Contact 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 Procedures COLPOSCOPY COLPOSCOPY CERVIX BX CERVIX & ENDOCRV CURRETAGE Amy Pineda MD [address] [place] [address] [address] Referral ID Status Reason Start Date Expiration Date Visits Requested Visits Authorized [id number] Authorized Auto-Generat ed Referral 03/23/2022 03/23/2023 1 1 [facility] Summary Purpose Family History No Family History Records FoundNo Family History Records FoundNo Family History Records FoundNo Family History Records FoundNo Family History Records FoundNo Family History Records Found Advance Directives No Advanced Directives Records FoundDocuments on File Type Date Recorded 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 Advance Directive(s) 10/07/2016 11:11 AM Advance Directive(s) 09/24/2016 8:01 AM Documents on File Type Date Recorded 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 Advance Directive(s) 10/07/2016 11:11 AM Advance Directive(s) 09/24/2016 8:01 AM Reason for Referral Specialty Diagnoses / Procedures Referred By Contac t Referred To Contact Pulmonary and Critical Care Medicine Diagnoses Cough Shortness of breath Procedures CONSULT TO PULM/CRITICAL CARE OFFICE/OUTPATIENT [facility] 60-74 MINUTES Cecily Chase, DRAG SEINER.PATIENT INTAKE COORDINATOR [address] [place] [address] Referral ID Status Reason Start Date Expiration Date Visits Requested Visits Authorized [id number] Authorized PCP Requested Referral 06/09/2021 06/09/2022 1 1 Specialty Diagnoses / Procedures Referred By Contac t Ref[facility] Diagnoses Cough Shortness of breath Procedures SPIROMETRY WITH DILATOR IF OBSTRUCTED BRNCDILAT RSPSE SPMTRY PRE&POST-BRNCDILAT ADMN Cecily Chase, DRAG SEINER.PATIENT INTAKE COORDINATOR [address] [place] [address] [facility] [place] [address] [place] [address] Referral ID Status Reason Start Date Expiration Date Visits Requested Visits Authorized [id number] Authorized Auto-Generat ed Referral 06/09/2021 07/09/2022 1 1 Specialty Diagnoses / Procedures Referred By Contac t Referred To Contact Ent - Otolaryngology Diagnoses Sore throat Procedures CONSULT TO ENT OFFICE/[facility]IENT [facility] 60-74 MINUTES Deborah Tobar, DRAG SEINER.HOT STAMP OPERATOR [address] [place] [address] Referral ID Status Reason Start Date Expiration Date Visits Requested Visits Authorized [id number] Authorized PCP Requested Referral 06/09/2022 06/09/2023 1 1 Medications Administered Section Inactive Administered Medications - up to 3 most recent administrations Medication Order MAR Action Action Date Dose Rate Site keTORolac 60 mg injection (TORADOL) 60 mg, INTRAMUSCULAR, ONCE, 1 dose, On Estela 12/24/21 at 1930, Ketorolac (Toradol) is indicated for the short-term (up to 5 days) management of moderately severe acute pain. Continuation of ketorolac (Toradol) beyond 5 days increases the risk of developing serious adverse events. Please verify the duration of therapy for ketorolac (Toradol)., If ordered PRN for pain, patient/guardian may elect to receive this medication for higher pain levels INSTEAD of the opioid, if preferred: Yes Given 12/24/2021 7:21 PM EDT 60 mg Buttocks, Right Additional Source Comments INFORMATION SOURCE (unrecogn ized section and content) DATE CREATED AUTHOR AUTHOR'S ORGANIZ ATION 03/18/2022 [facility] DATE CREATED AUTHOR AUTHOR'S ORGANIZ ATION 08/23/2022 [facility] DATE CREATED AUTHOR AUTHOR'S ORGANIZ ATION 08/23/2022 [facility] DATE CREATED AUTHOR AUTHOR'S ORGANIZ ATION 12/31/2022 [facility] DATE CREATED AUTHOR AUTHOR'S ORGANIZ ATION 04/06/2023 [facility] <item><item> Privacy Markings (unrecogniz ed section and content) Section Author: Breanna Sanchez PROHIBITION ON REDISCLOSURE OF CONFIDENTIAL INFORMATION This notice accompanies a disclosure of information concerning a client made to you with the consent of such client. Section Author: Breanna Sanchez PROHIBITION ON REDISCLOSURE OF CONFIDENTIAL INFORMATION This notice accompanies a disclosure of information concerning a client made to you with the consent of such client. Source Comments (unrecognize d section and content) In the event this informatio n is protected by the Federal Confidentiality of Alcohol and Drug Abuse Patient Records regulations: The Federal rules restrict any use of the information to criminally investigate or prosecute any alcohol or drug abuse patient.[facility] the event this information is protected by the Federal Confidentiality of Alcohol and Drug Abuse Patient Records regulations: The Federal rules restrict any use of the information to criminally investigate or prosecute any alcohol or drug abuse patient.[facility] the event this information is protected by the Federal Confidentiality of Alcohol and Drug Abuse Patient Records regulations: The Federal rules restrict any use of the information to criminally investigate or prosecute any alcohol or drug abuse patient.[facility] the event this information is protected by the Federal Confidentiality of Alcohol and Drug Abuse Patient Records regulations: The Federal rules restrict any use of the information to criminally investigate or prosecute any alcohol or drug abuse patient.[facility] the event this information is protected by the Federal Confidentiality of Alcohol and Drug Abuse Patient Records regulations: The Federal rules restrict any use of the information to criminally investigate or prosecute any alcohol or drug abuse patient.[facility] the event this information is protected by the Federal Confidentiality of Alcohol and Drug Abuse Patient Records regulations: The Federal rules restrict any use of the information to criminally investigate or prosecute any alcohol or drug abuse patient.[facility] the event this information is protected by the Federal Confidentiality of Alcohol and Drug Abuse Patient Records regulations: The Federal rules restrict any use of the information to criminally investigate or prosecute any alcohol or drug abuse patient.[facility] the event this information is protected by the Federal Confidentiality of Alcohol and Drug Abuse Patient Records regulations: The Federal rules restrict any use of the information to criminally investigate or prosecute any alcohol or drug abuse patient.[facility] the event this information is protected by the Federal Confidentiality of Alcohol and Drug Abuse Patient Records regulations: The Federal rules restrict any use of the information to criminally investigate or prosecute any alcohol or drug abuse patient.[facility] the event this information is protected by the Federal Confidentiality of Alcohol and Drug Abuse Patient Records regulations: The Federal rules restrict any use of the information to criminally investigate or prosecute any alcohol or drug abuse patient.[facility] the event this information is protected by the Federal Confidentiality of Alcohol and Drug Abuse Patient Records regulations: The Federal rules restrict any use of the information to criminally investigate or prosecute any alcohol or drug abuse patient.[facility] Center[facility] the event this information is protected by the Federal Confidentiality of Alcohol and Drug Abuse Patient Records regulations: The Federal rules restrict any use of the information to criminally investigate or prosecute any alcohol or drug abuse patient.[facility] Center[facility] the event this information is protected by the Federal Confidentiality of Alcohol and Drug Abuse Patient Records regulations: The Federal rules restrict any use of the information to criminally investigate or prosecute any alcohol or drug abuse patient.[facility] Center[facility] the event this information is protected by the Federal Confidentiality of Alcohol and Drug Abuse Patient Records regulations: The Federal rules restrict any use of the information to criminally investigate or prosecute any alcohol or drug abuse patient.[facility] Center[facility] the event this information is protected by the Federal Confidentiality of Alcohol and Drug Abuse Patient Records regulations: The Federal rules restrict any use of the information to criminally investigate or prosecute any alcohol or drug abuse patient.[facility] CenterIn the event this information is protected by the Federal Confidentiality of Alcohol and Drug Abuse Patient Records regulations: The Federal rules restrict any use of the information to criminally investigate or prosecute any alcohol or drug abuse patient.[facility] Center[facility] the event this information is protected by the Federal Confidentiality of Alcohol and Drug Abuse Patient Records regulations: The Federal rules restrict any use of the information to criminally investigate or prosecute any alcohol or drug abuse patient.[facility] CenterIn the event this information is protected by the Federal Confidentiality of Alcohol and Drug Abuse Patient Records regulations: The Federal rules restrict any use of the information to criminally investigate or prosecute any alcohol or drug abuse patient.[facility] CenterIn the event this information is protected by the Federal Confidentiality of Alcohol and Drug Abuse Patient Records regulations: The Federal rules restrict any use of the information to criminally investigate or prosecute any alcohol or drug abuse patient.[facility] CenterIn the event this information is protected by the Federal Confidentiality of Alcohol and Drug Abuse Patient Records regulations: The Federal rules restrict any use of the information to criminally investigate or prosecute any alcohol or drug abuse patient.[facility] CenterIn the event this information is protected by the Federal Confidentiality of Alcohol and Drug Abuse Patient Records regulations: The Federal rules restrict any use of the information to criminally investigate or prosecute any alcohol or drug abuse patient.[facility] Center[facility] the event this information is protected by the Federal Confidentiality of Alcohol and Drug Abuse Patient Records regulations: The Federal rules restrict any use of the information to criminally investigate or prosecute any alcohol or drug abuse patient.[facility] CenterIn the event this information is protected by the Federal Confidentiality of Alcohol and Drug Abuse Patient Records regulations: The Federal rules restrict any use of the information to criminally investigate or prosecute any alcohol or drug abuse patient.[facility] CenterIn the event this information is protected by the Federal Confidentiality of Alcohol and Drug Abuse Patient Records regulations: The Federal rules restrict any use of the information to criminally investigate or prosecute any alcohol or drug abuse patient.[facility] CenterIn the event this information is protected by the Federal Confidentiality of Alcohol and Drug Abuse Patient Records regulations: The Federal rules restrict any use of the information to criminally investigate or prosecute any alcohol or drug abuse patient.[facility] CenterIn the event this information is protected by the Federal Confidentiality of Alcohol and Drug Abuse Patient Records regulations: The Federal rules restrict any use of the information to criminally investigate or prosecute any alcohol or drug abuse patient.[facility] CenterIn the event this information is protected by the Federal Confidentiality of Alcohol and Drug Abuse Patient Records regulations: The Federal rules restrict any use of the information to criminally investigate or prosecute any alcohol or drug abuse patient.[facility] CenterIn the event this information is protected by the Federal Confidentiality of Alcohol and Drug Abuse Patient Records regulations: The Federal rules restrict any use of the information to criminally investigate or prosecute any alcohol or drug abuse patient.[facility] CenterIn the event this information is protected by the Federal Confidentiality of Alcohol and Drug Abuse Patient Records regulations: The Federal rules restrict any use of the information to criminally investigate or prosecute any alcohol or drug abuse patient.[facility] CenterIn the event this information is protected by the Federal Confidentiality of Alcohol and Drug Abuse Patient Records regulations: The Federal rules restrict any use of the information to criminally investigate or prosecute any alcohol or drug abuse patient.[facility] CenterIn the event this information is protected by the Federal Confidentiality of Alcohol and Drug Abuse Patient Records regulations: The Federal rules restrict any use of the information to criminally investigate or prosecute any alcohol or drug abuse patient.[facility] CenterIn the event this information is protected by the Federal Confidentiality of Alcohol and Drug Abuse Patient Records regulations: The Federal rules restrict any use of the information to criminally investigate or prosecute any alcohol or drug abuse patient.[facility] CenterIn the event this information is protected by the Federal Confidentiality of Alcohol and Drug Abuse Patient Records regulations: The Federal rules restrict any use of the information to criminally investigate or prosecute any alcohol or drug abuse patient.[facility] Reason for Visit (unrecogniz ed section and content) Reason Onset Date Comments Refill Request 06/30/2021 Reason Onset Date Comments Refill Request 2021 Reason Comments Spirometry Specialty Diagnoses / Procedures Referred By Contac t Referred To Contact [facility] Diagnoses Cough Shortness of breath Procedures SPIROMETRY WITH DILATOR IF OBSTRUCTED BRNCDILAT RSPSE SPMTRY PRE&POST-BRNCDILAT ADMN Cecily Chase, DRAG SEINER.PATIENT INTAKE COORDINATOR [address] [place] [address] [facility] [address] [place] [id number] Referral ID Status Reason Start Date Expiration Date V isits Requested Visits Authorized [id number] Closed Auto-Generate d Referral 06/09/2021 07/09/2022 1 1 Specialty Diagnoses / Procedures Referred By Contignacio t Referred To Contact [facility] Diagnoses Cough Procedures NITRIC OXIDE, EXHALED NITRIC OXIDE GAS DETERMINATION Kimberly Hughes MD [address] [place] [address] [facility] [place] [address] [place] [address], [place] [address] Referral ID Status Reason Start Date Expiration Date V isits Requested Visits Authorized [id number] Closed Auto-Generate d Referral 07/14/2021 08/13/2022 1 1 Reason Onset Date Comments Refill Request 08/30/2021 Reason Comments Depression Reason Comments Consult Initial [facility] Pt Outr each Reason Onset Date Comments Refill Request 11/10/2021 Reason Comments left sciatic pain X 1 week Reason Comments Recheck discuss medication-p rozac and adipex Reason Comments Recheck Adipex follow up Reason Comments Pelvic Pain Reason Comments Results Reason Onset Date Comments Colposcopy Gardasil Injection 03/30/2022 Specialty Diagnoses / Procedures Referred By Contac t Referred To Contact 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 Procedures COLPOSCOPY COLPOSCOPY CERVIX BX CERVIX & ENDOCRV CURRETAGE Amy Pineda MD [address] [place] [address] [facility] [address] [place] [address] Referral ID Status Reason Start Date Expiration Date V isits Requested Visits Authorized [id number] Closed Auto-Generate d Referral 03/23/2022 03/23/2023 1 1 Reason Comments Follow Up 1 month follow up-ad ipex Reason Comments Anxiety Reason Comments Sore Throat HARRISON, sinus pressure x 2 weeks Reason Comments Physical Work physical with T B test (blood work is ok) Reason Onset Date Comments Refill Request 06/27/2022 Reason Onset Date Comments Refill Request 06/28/2022 Reason Comments Follow Up 3 month follow up-we ight Reason Onset Date Comments Refill Request 11/01/2022 Reason Comments Recheck Follow up Reason Comments Cough Chest congestion, wh eezing x2 days Reason Onset Date Comments Refill Request 12/24/2022 Reason Onset Date Comments Refill Request 12/21/2022 Reason Onset Date Comments Refill Request 01/28/2023 Reason Comments Weight Loss wanting to restart p hetermine Care Teams (unrecognized sec tion and content) Efficiency Expert Relationship Specialty Start Date End Date Jennifer Almanza MD [address] [place] [address] PCP - General Internal Medicine 07/14/16 Efficiency Expert Relationship Specialty Start Date End Date Jennifer Almanza MD [address] [place] [address] PCP - General Internal Medicine 07/14/16 Efficiency Expert Relationship Specialty Start Date End Date Jennifer Almanza MD [address] [place] [address] PCP - General Internal Medicine 07/14/16 Efficiency Expert Relationship Specialty Start Date End Date Jennifer Almanza MD [address] [place] [address] PCP - General Internal Medicine 07/14/16 Efficiency Expert Relationship Specialty Start Date End Date Jennifer Almanza MD [address] [place] [address] PCP - General Internal Medicine 07/14/16 Efficiency Expert Relationship Specialty Start Date End Date Jennifer Almanza MD [address] [place] [address] PCP - General Internal Medicine 07/14/16 Efficiency Expert Relationship Specialty Start Date End Date Jennifer Almanza MD [address] [place] [address] PCP - General Internal Medicine 07/14/16 Efficiency Expert Relationship Specialty Start Date End Date Jennifer Almanza MD [address] [place] [address] PCP - General Internal Medicine 07/14/16 Efficiency Expert Relationship Specialty Start Date End Date Jennifer Almanza MD [address] [place] [address] PCP - General Internal Medicine 07/14/16 Efficiency Expert Relationship Specialty Start Date End Date Jennifer Almanza MD [address] [place] [address] PCP - General Internal Medicine 07/14/16 Efficiency Expert Relationship Specialty Start Date End Date Jennifer Almanza MD [address] [place] [address] PCP - General Internal Medicine 07/14/16 Efficiency Expert Relationship Specialty Start Date End Date Jennifer Almanza MD [address] [place] [address] PCP - General Internal Medicine 07/14/16 Efficiency Expert Relationship Specialty Start Date End Date Jennifer Almanza MD [address] [place] [address] PCP - General Internal Medicine 07/14/16 Efficiency Expert Relationship Specialty Start Date End Date Jennifer Almanza MD [address] [place] [address] PCP - General Internal Medicine 07/14/16 Efficiency Expert Relationship Specialty Start Date End Date Jennifer Almanza MD [address] [place] [address] PCP - General Internal Medicine 07/14/16 Efficiency Expert Relationship Specialty Start Date End Date Jennifer Almanza MD [address] [place] [address] PCP - General Internal Medicine 07/14/16 Efficiency Expert Relationship Specialty Start Date End Date Jennifer Almanza MD [address] [place] [address] PCP - General Internal Medicine 07/14/16 Efficiency Expert Relationship Specialty Start Date End Date Jennifer Almanza MD [address] [place] [address] PCP - General Internal Medicine 07/14/16 Efficiency Expert Relationship Specialty Start Date End Date Jennifer Almanza MD [address] [facility] [place] [address] PCP - General Internal Medicine 07/14/16 Efficiency Expert Relationship Specialty Start Date End Date Jennifer Almanza MD [address] [facility] [place] [address] PCP - General Internal Medicine 07/14/16 Efficiency Expert Relationship Specialty Start Date End Date Jennifer Almanza MD [address] [place] [address] PCP - General Internal Medicine 07/14/16 Efficiency Expert Relationship Specialty Start Date End Date Jennifer Almanza MD [address] [place] [address] PCP - General Internal Medicine 07/14/16 Efficiency Expert Relationship Specialty Start Date End Date Jennifer Almanza MD [address] [place] [address] PCP - General Internal Medicine 07/14/16 Efficiency Expert Relationship Specialty Start Date End Date Jennifer Almanza MD [address] [place] [address] PCP - General Internal Medicine 07/14/16 FOR RECORDS PERTAINING TO PATIENTS WHO ARE OR HAVE BEEN ENROLLED IN A CHEMICAL DEPENDENCY/SUBSTANCEABUSE PROGRAM, SOME INFORMATION MAY BE OMITTED. This clinical summary was aggregated from multiple sources. Caution should be exercised in using it in the provision of clinical care. This summary normalizes information from multiple sources, and as a consequence, information in this document may materially change the coding, format and clinical context of patient data. In addition, data may be omitted in some cases. CLINICAL DECISIONS SHOULD BE BASED ON THE PRIMARY CLINICAL RECORDS. [employer] [facility]. provides no warranty or guarantee of the accuracy or completeness of information in this document.
--- NOTE | 2023-05-05 12:27 | CT_ITS ---
STUDY: CT ABDOMEN AND PELVIS WITHOUT CONTRAST REASON FOR EXAM: Female, 32 years old. Right hydronephrosis on recent ultrasound of the abdomen. RADIATION DOSAGE (If Supplied By Facility): CTDIvol = ( 12.99 ) mGy, DLP = ( 616.66 ) mGycm TECHNIQUE: Transaxial images were obtained from the dome of the diaphragm to the symphysis pubis without oral contrast, and without intravenous contrast. Sagittal and coronal images were reconstructed. Individualized dose optimization techniques were used for this CT. COMPARISON: None. FINDINGS: The visualized lung bases are unremarkable. The visualized portions of the heart are within normal limits. Normal liver. Normal gallbladder and extrahepatic biliary system. Normal spleen. Normal pancreas. Normal bilateral adrenal glands. Normal right kidney. Normal left kidney. Normal visualized stomach. Normal small intestine. Normal colon. The appendix is visualized and appears normal. Normal abdominal aorta. Normal inferior vena cava. Normal retroperitoneum. Normal urinary bladder. There is a 3.3 cm x 2.8 cm cystic density in the right ovary with low-level densities within it. This is not a typical cyst. Correlation with ultrasound is recommended. There is a small umbilical hernia containing fat. Normal osseous structures. CT/Abdomen/Pelvis without Cont IMPRESSION: 3.3 cm x 2.8 cm complex cyst in the right ovary. No obstructive uropathy is seen. Electronically Signed: Ministerio Bhatia MD at 12:51 EST ,
[2023-05-05 12:41] VITALS: BP 125/78; PULSE 87; RESP 16; O2SAT 100
[2023-05-05] MEDS: Ketorolac 15 MG/ML Vial IV (13:22)
[2023-05-05 13:23] LABS: Bacteria 0 SEEN /hpf (None Seen); Mucous, Urine 0 SEEN /hpf (<or=2+); Red Blood Cells-Urine 0 SEEN /hpf (0-5); White Blood Cells 0 SEEN /hpf (0-5)
[2023-05-05 13:32] LABS: Color, Urine Straw (Yellow); Glucose, Dipstick Normal (Normal); Ketone-Dipstick Negative (Negative); Leukocyte Esterase-Dipstick Negative /ul (Negative); Nitrite-Dipstick Negative (Negative); Occult Blood-Urine 10 /ul (Negative); Protein-Dipstick Negative (Negative); Specific Gravity, Urine 1.015 (1.002-1.030); Urine Bilirubin Dipstick Negative (Negative); Urine Clarity Clear (Clear); Urine Urobilinogen Normal (Normal)
[2023-05-05 13:52] LABS: Squamous Epithelial Cells - UA 0-5 SEEN /hpf (5-10)
[2023-05-05 14:00] VITALS: BP 121/71; RESP 16; O2SAT 99
[2023-05-05 14:03] VITALS: BP 121/71; PULSE 86; RESP 16; TEMP 36.8; O2SAT 99
--- NOTE | 2023-05-05 14:07 | ED.RN ---
pt informed that she will need a ride home d/t receiving IV morphine less than 6 hrs ago. pt stated ride is on the way. IV removed and patient d/c to waiting room to wait on ride.
== END 2023-05-05 14:08 | disposition home or self-care (01) ==
PROVIDERS: Emergency Provider Emergency Medicine; PCP Internal Medicine; Visit Provider Emergency Medicine
DX: R10.13 Epigastric pain (principal); E87.6 Hypokalemia; G89.29 Other chronic pain; R11.0 Nausea; F17.200 Nicotine dependence, unspecified, uncomplicated; Z79.899 Other long term (current) drug therapy; J45.909 Unspecified asthma, uncomplicated
CPT/HCPCS: 74176; 76705; 80048; 80076; 81001; 83690; 84703; 85025; 96361; 96374; 96375; 96376; 99283; J7030; A4216; J2405

== ENCOUNTER 2023-06-10 08:23 | Day surgery (SDC) | payer MEDICAID, SELFPAY ==
[2023-06-10 08:49] VITALS: BP 144/86; PULSE 111; RESP 16; TEMP 36.2; O2SAT 100; BMI 37.5
[2023-06-10] MEDS: Lactated Ringers 1,000 ML 15 ML IV (08:53)
[2023-06-10 08:57] LABS: Internal QC Validated? YES +Cl - CLEAR BKGD; Pregnancy, Urine Negative Negative
--- NOTE | 2023-06-10 09:30 | IMM_PTH ---
PATIENT: STELLA COLLINS LOC: EN U#:[id number] AGE/SX: 32/F ROOM: RE06/10/[address]: Dr. Umesh Jimenez MD : 1990 BED: DIS: 06/10/2023 SPEC #: [id number] RECD: 06/13/23 12:51 STATUS: SAIDA REQ #: [id number] BRITNEY: 06/10/23 09:[address]: Umesh Jimenez DEPT: IMMUNOHISTOCHEMISTRY RECD BY: Vitaliy Toledo ENTERED: 06/13/23 12:52 SP TYPE: IMMUNO OTHR DR: Dr. Jennifer Dia MD Tissues: A - Stomach, NOS Procedures: H Pylori (initial) PHYSICIAN & INSTITUTION [place] [id number] SPECIMEN INFORMATION: Tissue Source: Antrum biopsy Clinical Info: Abdominal pain Specimen Number: [id number] CPT code: 89795 METHODOLOGY: Deparaffinized sections of prefer/formalin-fixed tissue or PAP/DQ stained slides are incubated with monoclonal/polyclonal antibodies/oligonucleotide probes. Localization is made via biotin free immunoperoxidase method. Appropriate controls are performed and reacted as expected. Results on target cell population are indicated in the following table: RESULTS: ANTIBODY / CLONE RESULT H Pylori (polyclonal) negative These tests were developed and their performance characteristics determined by [facility]. They may not have been cleared or approved by the U.S. Food and Drug Administration. The FDA has determined that such clearance or approval is not necessary. The above immunohistochemical/dualISH markers are ordered and reviewed by the Pathologist. INTERPRETATION: A. Antrum, biopsy: Negative for Helicobacter pylori organisms. YOUSIF/ 06/14/23
--- NOTE | 2023-06-10 09:30 | EGD_PTH ---
PATIENT: STELLA COLLINS LOC: EN U#:[id number] AGE/SX: 32/F ROOM: RE06/10/[address]: Dr. Umesh Jimenez MD : 1990 BED: DIS: 06/10/2023 SPEC #: [id number] RECD: 06/10/23 13:23 STATUS: SAIDA JAELYN #: [id number] BRITNEY: 06/10/23 09:[address]: Umesh Jimenez DEPT: SURGICAL PATHOLOGY RECD BY: Marian Crocker ENTERED: 06/13/23 08:03 SP TYPE: EGD BIOPSY OT DR: Dr. Jennifer Dia MD Tissues: A - Gastric mucous membrane B - Esophagus, NOS Procedures: Special Stain Group II Surgery Specimen Level IV Alcian Blue/PAS (control) HEADER OPERATION: EGD with biopsy PRE-OP DIAGNOSIS: Abdominal pain TISSUE SUBMITTED: A- Antrum, B- Gastroesophageal junction MICROSCOPIC DIAGNOSIS A. Antrum, biopsy: Mild gastritis. See microscopic description and comment. B. Gastroesophageal junction, biopsy: Fragments of gastroesophageal mucosa with mild chronic inflammation and minimal acute inflammation. Intestinal metaplasia (goblet cell metaplasia) not identified. See comment. YOUSIF/ 06/14/2023 COMMENT A. The results of immunohistochemistry for Helicobacter pylori will be reported separately ([id number]). B. Alcian blue/PAS stain with matched control is used in the evaluation of the specimen. MICROSCOPIC DESCRIPTION Slides are reviewed. The specimen shows fragments of gastric mucosa with chronic inflammatory cell infiltrates in the lamina propria consisting of lymphocytes and plasma cells, consistent with mild chronic gastritis. GROSS DESCRIPTION A. Received in fixative is one container labeled with the patient's name and designated Antrum biopsy. The specimen consists of multiple irregular fragments of light ryan soft tissue that in aggregate measure 0.8 x 0.8 x 0.1 cm. The specimen is totally submitted in one cassette. B. Received in fixative is one container labeled with the patient's name and designated GE junction. The specimen consists of two irregular fragments of light ryan soft tissue that in aggregate measure 0.5 x 0.2 x 0.1 cm. The specimen is totally submitted in one cassette. YOUSIF/ 06/13/23 TC:3 CPT: 26459n8, 51297
--- NOTE | 2023-06-10 10:28 | HP.PCM_ITS ---
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 Is patient in pain?: No Allergies No Known Drug Allergies Allergy (Verified 03/21/23 13:13) Other Medications etonogestrel 68 mg subdermal implant (Nexplanon) 1 implant subdermal ONCE 07/20/21 [History Confirmed 03/21/23] montelukast 10 mg tablet 10 mg PO DAILY 07/20/21 [History Confirmed 03/21/23] buspirone 15 mg tablet 15 mg PO BID 01/26/23 [History Confirmed 03/21/23] hydroxyzine HCl 25 mg tablet 25 mg PO Q8H PRN anxiety 01/26/23 [History Confirmed 03/21/23] lorazepam 0.5 mg tablet 0.5 mg PO Q8H PRN anxiety 01/26/23 [History Confirmed 03/21/23] trazodone 50 mg tablet 50 mg PO QHS PRN insomnia 01/26/23 [History Confirmed 03/21/23] venlafaxine 75 mg capsule,extended release 24 hr 75 mg PO QHS 01/26/23 [History Confirmed 03/21/23] pantoprazole 40 mg tablet,delayed release 40 mg PO DAILY #30 tabs 02/14/23 [Rx Confirmed 03/21/23] PFSH Medical History Asthma COVID-19 Urinary tract infection with hematuria Surgical History History of History of carpal tunnel surgery Social History Smoking Status: Heavy Smoker (>10/day) alcohol intake: never HPI HPI HPI: Patient is a 32-year-old female here with epigastric pain. The patient has been taking her PPI daily since her last visit and reports that there has been some improvement but it is not gone and it is still painful in the epigastric region especially if she eats. ROS General General: Yes weight change, appetite and fatigue; No colon cancer, breast cancer or weakness HEENT HEENT: No difficulty swallowing, eye injury, eye surgery, swollen glands or hoarseness Endo Endocrine: No thyroid disease, diabetes mellitus, thyroid cancer, Hair loss, heat intolerance or cold intolerance Skin Skin: No rash or changing moles Breast Breast: No left breast lump, right breast lump, nipple discharge, breast pain, abnormal mammogram, abnormal US or breast enlargement Musc Musculoskeletal: No back problems, arthritis, rheumatoid arthritis, gout or joint pain Cardio Cardiovascular: No murmur, pacemaker, heart disease, atrial fibrillation, high blood pressure, heart attack, heart stent, palpitations, shortness of breat with exertion or chest pain Psych Psychiatric: Yes depression and anxiety; No hearing voices Resp Respiratory: No shortness of breath, No sleep apnea, No cough, No COPD, Yes asthma, No emphysema and No wheezing Gastro Gastrointestinal: Yes abdominal pain, No nausea or vomiting, No diarrhea, No constipation, No blood in stool, Yes acid reflux, No hemorrhoids, No ulcers, No gallbladder problem and No black,tarry stools Fabian Hematologic: No blood thinners, No blood disorders, No bleeding, No anemia and No blood clots Neuro Neurologic: No system reviewed and no additional complaints, except as documented, No as per HPI, No abnormal gait, No abnormal hearing, No abnormal movements, No abnormal speech, No behavioral changes, No burning sensations, No confusion, No convulsions, No disequilibrium, No dizziness, No localized weakness, No frequent falls, No headache(s), No lack of coordination, No loss of vision, No memory loss, No numbness, No other visual disturbances, No radicular pain, No restless legs, No sensory deficit, No syncope, No tingling, No tremor(s), No weakness and No other Exam Const General: cooperative Orientation: alert and oriented x3 HENMT Head: normal to inspection Neck Neck: normal visual inspection and full ROM Chest Chest palpation & inspection: normal inspection of the chest Resp Effort & Inspection: normal respiratory effort Auscultation: clear to auscultation bilaterally Cardio Rate: regular rate Rhythm: regular rhythm GI Inspection: non-distended Palpation: soft and nontender Skin General: no rashes or lesions noted Neuro General: patient alert and patient oriented x3 Extrem General: full ROM Psych Appearance: grossly normal Mental Status: mental status grossly normal Assessment and Plan Assessment and Plan (1) Abdominal pain: Status: Acute Qualifiers: Abdominal location: epigastric Qualified Code(s): R10.13 - Epigastric pain Plan: Patient still complaining of epigastric pain. I recommend that she continue her PPI until I am able to perform an EGD. I did discuss EGD with her. I explained endoscopy in detail to the patient. I explained the risks including but not limited to stroke or heart attack with anesthesia, perforation of the GI tract, bleeding, infection. I explained that any of these could necessitate further emergency surgery. The patient understands and all questions were answered sufficiently. The patient wishes to proceed with procedure. Umesh Jimenez MD Pager: [facility] [address] [place] [address], [address] [place] [address] Office: I have examined the patient and the H&P has been reviewed. There are no clinical changes since date of exam.
[2023-06-10 10:30] VITALS: BP 144/86; BP 87/70; PULSE 110; RESP 16; TEMP 36.2; O2SAT 96
--- NOTE | 2023-06-10 10:30 | OP.EGD_ITS ---
Patient Name: Rody Tang Procedure Date: 06/10/2023 10:09 AM Date of : 1990 Age: 32 Procedure: Upper GI endoscopy Indications: Epigastric abdominal pain, Heartburn Providers: Umesh Jimenez MD Referring MD: Jennifer Dia Medicines: Propofol per Anesthesia Patient Profile: This is a 32 year old female. Refer to note in patient chart for documentation of history and physical. Complications: No immediate complications. Estimated blood loss: Minimal. Procedure: Pre-Anesthesia Assessment: - Prior to the procedure, a History and Physical was performed, and patient medications and allergies were reviewed. The patient's tolerance of previous anesthesia was also reviewed. The risks and benefits of the procedure and the sedation options and risks were discussed with the patient. All questions were answered, and informed consent was obtained. Prior Anticoagulants: The patient has taken no anticoagulant or antiplatelet agents. After reviewing the risks and benefits, the patient was deemed in satisfactory condition to undergo the procedure. After obtaining informed consent, the endoscope was passed under direct vision. Throughout the procedure, the patient's blood pressure, pulse, and oxygen saturations were monitored continuously. The Endoscope was introduced through the mouth, and advanced to the third part of duodenum. The upper GI endoscopy was accomplished without difficulty. The patient tolerated the procedure well. Scope In: 10:20:58 AM Scope Out: 10:24:15 AM Total Procedure Duration Time 0 hours 3 minutes 17 seconds Findings: Non-severe esophagitis with no bleeding was found at the gastroesophageal junction. Biopsies were taken with a cold forceps for histology. Few non-bleeding cratered gastric ulcers with no stigmata of bleeding were found in the prepyloric region of the stomach. The examined duodenum was normal. Impression: - Non-severe reflux esophagitis with no bleeding. Biopsied. - Non-bleeding gastric ulcers with no stigmata of bleeding. - Normal examined duodenum. Recommendation: - Discharge patient to home. - Resume previous diet. - Continue present medications. - Await pathology results. - Return to my office in 2 weeks. Procedure Code(s): --- Professional --- 30767, 33, Esophagogastroduodenoscopy, flexible, transoral; with biopsy, single or multiple Diagnosis Code(s): --- Professional --- K21.00, Gastro-esophageal reflux disease with esophagitis, without bleeding K25.9, Gastric ulcer, unspecified as acute or chronic, without hemorrhage or perforation R10.13, Epigastric pain R12, Heartburn CPT copyright 2021 [employer] [place] [employer]. All rights reserved. The codes documented in this report are preliminary and upon furniture sander review may be revised to meet current compliance requirements. Umesh Jimenez MD 06/10/2023 10:30:29 AM This report has been signed electronically. Number of Addenda: 0 Note Initiated On: 06/10/2023 10:09 AM
--- NOTE | 2023-06-10 10:31 | OP.CCLET_ITS ---
06/10/2023 Jennifer Dia [address] [place] [id number] Re : Upper GI endoscopy procedure for Rody Tang Dear Dr. Dia This procedure was performed on Saturday, June 10, 2023. My impressions and recommendations are as follows: Impressions : - Non-severe reflux esophagitis with no bleeding. Biopsied. - Non-bleeding gastric ulcers with no stigmata of bleeding. - Normal examined duodenum. Recommendations : - Discharge patient to home. - Resume previous diet. - Continue present medications. - Await pathology results. - Return to my office in 2 weeks. My findings are described in the full procedure note, which is enclosed. If I can be of further assistance, please feel free to contact me at Doctor phone number(s): , Work: . Sincerely, Umesh Jimenez MD 06/10/2023 10:30:29 AM This report has been signed electronically.
[2023-06-10 10:35] VITALS: BP 115/82; BP 144/86; PULSE 108; RESP 16; O2SAT 96
[2023-06-10 10:40] VITALS: BP 117/79; BP 144/86; PULSE 97; RESP 16; TEMP 36; O2SAT 96
[2023-06-10 10:51] VITALS: BP 144/86
== END 2023-06-10 11:14 | disposition home or self-care (01) ==
LOC: EN 08:24 → AC 08:25
PROVIDERS: Anesthesiology; PCP Internal Medicine; Referring Provider Internal Medicine; Visit Provider Surgery
PROC: 0DJ08ZZ Inspection of Upper Intestinal Tract, Via Natural or Artificial Opening Endoscopic (ICD-10-PCS; CPT 43235; principal; 2023-06-10 09:25)
DX: K29.70 Gastritis, unspecified, without bleeding (principal); F17.200 Nicotine dependence, unspecified, uncomplicated; K25.9 Gastric ulcer, unspecified as acute or chronic, without hemorrhage or perforation; K21.00 Gastro-esophageal reflux disease with esophagitis, without bleeding; J45.909 Unspecified asthma, uncomplicated; Z79.899 Other long term (current) drug therapy
CPT/HCPCS: 43239; 81025; 88305; 88313; 88342; J7120; J2405

== ENCOUNTER 2023-06-22 13:28 | Emergency (ER) | payer MEDICAID, SELFPAY ==
[2023-06-22 13:28] VITALS: BP 188/115; PULSE 149; RESP 22; TEMP 36.6; O2SAT 100; BMI 42.0
--- NOTE | 2023-06-22 13:53 | EX.ED.DYSGE1 ---
HPI History of Present Illness Chief Complaint: Anxiety [facility] Medical History (Updated 06/22/23 @ 14:[address] Rickie Altamirano DO) Asthma COVID-19 Depression Dietary restriction Gastric reflux Heartburn Smoker Urinary tract infection with hematuria Wears glasses Home Medications etonogestrel 68 mg subdermal implant (Nexplanon) 1 implant subdermal ONCE 07/20/21 [History Last Taken 06/09/23] pantoprazole 40 mg tablet,delayed release 40 mg PO DAILY #30 tabs 04/14/23 [Rx Last Taken 06/09/23] dicyclomine 20 mg tablet 20 mg PO BID PRN abdominal pain #20 tabs 05/05/23 [Rx Last Taken 06/09/23] brexpiprazole 0.5 mg tablet (Rexulti) 0.5 mg PO DAILY 06/09/23 [History Last Taken 06/09/23] buspirone 15 mg tablet 15 mg PO BID 06/09/23 [History Last Taken 06/09/23] venlafaxine 75 mg capsule,extended release 24 hr 75 mg PO DAILY 06/09/23 [History Last Taken 06/09/23] sucralfate 1 gram tablet (Carafate) 1 g PO BID #60 tabs 06/10/23 [Rx Last Taken Unknown] hydroxyzine HCl 25 mg tablet 25 mg PO TID PRN anxiety #20 tabs 06/22/23 [Rx Last Taken Unknown] Allergy/AdvReac Type Severity Reaction Status Date / Time No Known Drug Allergies Allergy Other Verified 06/22/23 13:29 Surgical History History of History of carpal tunnel surgery (~2017) History of wisdom tooth extraction Social History Smoking Status: Current every day smoker tobacco type: cigarettes alcohol intake: never EXAM Physical Exam Const Vital Signs: 06/22/23 13:28 06/22/23 15:11 Temperature 98 F 98.1 F Temperature Source Temporal Pulse Rate 149 H 105 H Respiratory Rate 22 H 16 Blood Pressure 188/115 H 142/88 H Blood Pressure Mean 139 106 Pulse Ox 100 96 Oxygen Delivery Method Room Air MDM MDM MDM Narrative Medical decision making narrative: HISTORY OF PRESENT ILLNESS: 32-year-old female presents with increased anxiety. States she is unable to calm down. Notes multiple life stressors including family stressors, work stressors. Denies suicidal homicidal ideation. Denies chest pain or shortness of breath REVIEW OF SYSTEMS: Pertinent positives: Anxiety Pertinent negatives: Suicidal, homicidal ideation, auditory visual hallucinations PHYSICAL EXAM: Nursing triage notes reviewed, Vital signs reviewed Constitutional: please see mdm HENT: MMM Eyes: Pupils equal round and reactive to light, Extraocular muscles intact Neck: No stridor, no JVD, full neck ROM Lungs: Clear to auscultation, No wheezing or rales. No increased work of breathing, no conversational dyspnea, no accessory muscle use, no nasal flaring. No respiratory distress noted Heart: Regular rate and rhythm, No murmurs, No rubs and No gallops, 2+ distal pulses (radial, femoral, posterior tibial) in all extremities Abdomen: Soft, there is no tenderness, rigidity, rebound or guarding, no obvious peritoneal signs, no palpable pulsatile abdominal masses, no auscultated abdominal bruit : No CVAT Extremities: No edema Neuro: No focal neurological deficits, cranial nerves II through XII intact, 5/5 strength in all extremities. Intact sensation to light touch in all extremities, 2+ reflexes bilateral patella tendons. Normal gait. No ataxia. Skin: No rash or lesions noted psych: Appears anxious, tearful otherwise goal-directed thought process MEDICAL DECISION MAKING: Chief Complaint: Anxiety External records reviewed: Last ED visit in 2023 for epigastric pain Factors affecting care: Anxiety Social determinants of health: History of tobacco use disorder Consults: none [facility] Narrative: Patient was initially hypertensive, tachycardic and tachypneic. Gave empiric Ativan. Give Atarax for home-going. No indication for behavioral health emergent inpatient psychiatric evaluation as patient denied any suicidal ideation, homicidal ideation, auditory or visual hallucinations. Vital signs improved after Ativan. Give strict return precautions, care plan discussed, Atarax prescription given The patient and/or family, caregivers express understanding. The patient and/or family, caregivers agrees with the plan. Shared decision making: I will have a discussion with the patient and or visitors regarding risk/benefits of further testing or admission. They will be made aware of of the risk/benefits inherent in this decision they will be given the opportunity to voice understanding. Total critical care time today provided was at least 0 minutes. This excludes separately billable procedures. Critical care time (if documented) is secondary to the patient having high probability of clinically significant/life threatening deterioration in the patient's condition which required my urgent intervention. Impression: 1. Anxiety 2. Hypertension (resolved) 3. Tachycardia (improved) Dispo: Discharge This note was generated with Rocketick dictation software. It may contain incorrect words, spelling, and punctuation that were not noted in review of the chart prior to signing. Discharge Plan Triage Chief Complaint: Anxiety ED Provider: Rickie Altamirano Dx/Rx/DC Orders Clinical Impression: Anxiety Instructions: ED Anxiety Reaction Prescriptions: New hydroxyzine HCl 25 mg tablet 25 mg PO TID PRN (Reason: anxiety) Qty: 20 0RF No Action Nexplanon 68 mg implant 1 implant subdermal ONCE Rx Instructions: as a single dose venlafaxine 75 mg capsule,extended release 24hr 75 mg PO DAILY buspirone 15 mg tablet 15 mg PO BID Rexulti 0.5 mg tablet 0.5 mg PO DAILY sucralfate [Carafate] 1 gram tablet 1 g PO BID Qty: 60 0RF dicyclomine 20 mg tablet 20 mg PO BID PRN (Reason: abdominal pain) Qty: 20 0RF pantoprazole 40 mg tablet,delayed release (DR/EC) 40 mg PO DAILY Qty: 30 2RF Stand Alone Forms: ED Work / School Excuse Primary Care Provider: Jennifer Dia Referrals: Dillon Antonio, [Med Staff - [facility]] - Activity Restrictions/Additional Instructions: Thank you for trusting us with your care today! Please take Tylenol (2 pills, 650 mg), ibuprofen (2 pills, 400 mg) every 6 hours as needed for pain and fever control. Please take Atarax as needed for anxiety. Please return to the emergency department if your symptoms change or worsen. Please follow with your primary care physician for further outpatient evaluation and management. Disposition Disposition: Home, Self Care Discharge Date/Time: 06/22/23 15:12
[2023-06-22] MEDS: LORazepam 1 MG Tablet 2 MG PO (14:20)
[2023-06-22 15:11] VITALS: BP 142/88; PULSE 105; RESP 16; TEMP 36.7; O2SAT 96
== END 2023-06-22 15:12 | disposition home or self-care (01) ==
PROVIDERS: Emergency Provider Emergency Medicine; PCP Internal Medicine; Visit Provider Emergency Medicine
DX: F41.9 Anxiety disorder, unspecified (principal); J45.909 Unspecified asthma, uncomplicated; K21.9 Gastro-esophageal reflux disease without esophagitis; F17.210 Nicotine dependence, cigarettes, uncomplicated; R00.0 Tachycardia, unspecified
CPT/HCPCS: 99282

== ENCOUNTER 2023-09-09 15:58 | Emergency (ER) | payer MEDICAID, SELFPAY ==
[2023-09-09 15:59] VITALS: BP 167/115; PULSE 119; RESP 26; TEMP 36; O2SAT 100; BMI 40.6
--- NOTE | 2023-09-09 16:26 | ED.RN ---
I'm leaving AMA or whatever pt has left department
== END 2023-09-09 16:27 | disposition left against medical advice (07) ==
LOC: ED 16:29
PROVIDERS: PCP Internal Medicine
DX: Z53.21 Procedure and treatment not carried out due to patient leaving prior to being seen by health care provider (principal)

== ENCOUNTER 2023-12-28 07:23 | Day surgery (SDC) | payer MEDICAID, SELFPAY ==
[2023-12-28] VITALS (8 sets, daily range): BP systolic 95–121; BP diastolic 50–97; PULSE 101–123; RESP 16–20; TEMP 36.1–36.6; O2SAT 94–100; BMI 41.3
--- NOTE | 2023-12-28 07:31 | PCM.PRE.AN2 ---
ASA Classification* ASA Classification ASA Classification: 2 Assessment & Plan Anesthesia* Anesthesia Assessment Anesthesia Assessment: Discussed sedation and/or anesthesia options, risks, benefits, and alternatives with patient/parents/legal guardian/POA. Questions invited. The patient/parents/legal guardian/POA seems to understand and agrees to proceed with anesthesia plan. Reviewed the physical assessment, medical history, allergy history and patient home medications list prior to surgery/procedure/anesthetic and documented any changes. Performed airway and anesthesia risk assessments. Anesthesia Type Anesthesia Type: MAC Anesthesia Focused Assessment* Airway Assessment Mouth opens: >3 cm Mallampati Score: II Focused Labs Anesthesia Preop lab: CBC WBC 9.8 K/mm3 (4.4-11.0) 05/05/23 11:03 RBC 4.64 M/mm3 (4.2-5.4) 05/05/23 11:03 Hgb 13.4 g/dL (12.0-15.0) 05/05/23 11:03 Hct 40.8 % (37-47) 05/05/23 11:03 Plt Count 320 K/mm3 (150-450) 05/05/23 11:03 CHEMISTRY Potassium 3.0 mmol/L (3.5-5.1) L 05/05/23 11:03 Sodium 138 mmol/L (136-145) 05/05/23 11:03 Magnesium 2.1 mg/dL (1.6-2.6) 04/09/18 05:06 BUN 9 mg/dL (7-18) 05/05/23 11:03 Creatinine 0.80 mg/dL (0.55-1.02) 05/05/23 11:03 Glucose 110 mg/dL (74-106) H 05/05/23 11:03 TSH 1.71 uIU/mL (0.358-3.74) 04/09/18 05:06 COAG PT 12.0 SECONDS (11.7-14.9) 10/18/13 09:30 Urine Test Negative Negative 06/10/23 08:38 Tst Clinic Negative 09/01/22 08:36 Pre-Assessment Diagnosis/Proposed Procedure Planned Operative Procedure(s): (L) Left Endoscopic Carpal Tunnel Release Anesthesia History 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 When Was Last Pacemaker Check QUESTION #4 FULL TEXT: You/Your Family Experience fever (hyperthermia) with Anesthesia Last Oral Intake Last Oral intake: Last Oral Intake NPO since Meds taken in AM with sips of water? 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 Female Yes 12/19/23 09:59 HX of Motion Sickness No 12/19/23 09:59 HX of N/V After Surgery No 12/19/23 09:59 Non-Smoker No 12/19/23 09:59 Duration of Surgery greater No 12/19/23 09:59 than 60 minutes Number of Risk Factors 1 12/19/23 09:59 PONV Score Low Risk 12/19/23 09:59 Height & Weight Height & Weight: Anesthesia: Height & Weight Height 5 ft 12/22/23 09:38 Respiratory Assessment Respiratory Assessment - industrial roof plumber: Respiratory Tract Infection Hx - industrial roof plumber Hx Respiratory Tract Infection No 12/19/23 09:59 STOP Sleep Apnea STOP Sleep Apnea - industrial roof plumber: STOP Sleep Apnea - industrial roof plumber Hx Hypertension No 12/19/23 09:59 Hx Sleep Apnea No 12/19/23 09:59 CPAP BIPAP Do you snore loudly (louder No 12/19/23 09:59 than talking or can be heard Do you often feel tired/ No 12/19/23 09:59 fatigued/ sleepy during daytime? Has anyone observed you stop No 12/19/23 09:59 breathing during sleep? STOP Results Negative 12/19/23 09:59 QUESTION #5 FULL TEXT : Do you snore loudly (louder than talking or can be heard through closed doors)? 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 Specify any problems Hx of Preganancy in last 3 No 12/19/23 09:59 Months Nurse Filling Out Transfusion VCHRISTIN 12/19/23 09:59 & Questions: Date: 12/19/23 12/19/23 09:59 Time: 10:00 12/19/23 09:59 Patient unable to answer at this time (ie. confused, unrespo /Reproduction History /Reproductive History - industrial roof plumber: /Reproductive Hx- industrial roof plumber Hx Now No 12/19/23 09:59 Gestational Age (in weeks): EDC: Hx Hx Para Hx Section SAB No 12/19/23 09:59 Active Medications Active Medications: Current Medications Generic Name Dose Route Start Last Admin Trade Name Freq PRN Reason Stop Dose Admin Cefazolin Sodium 2 gm/ N/A 20 mls @ 400 mls/hr 12/28/23 08:30 IV 12/28/23 08:32 PREOP [facility] Medical History Abnormal endoscopy of upper gastrointestinal tract Wears glasses Depression Dietary restriction Heartburn Gastric reflux Smoker Urinary tract infection with hematuria COVID-19 Asthma Home Medications ?Medication ?Instructions ?Recorded ?Last Taken ?Type etonogestrel 68 mg subdermal 1 implant subdermal ONCE 07/20/21 06/09/23 History implant (Nexplanon) venlafaxine 75 mg capsule,extended 75 mg PO DAILY #90 caps 08/11/23 Unknown Rx release 24 hr propranolol 10 mg tablet 10 mg PO TID PRN anxiety #90 tabs 09/08/23 Unknown Rx brexpiprazole 1 mg tablet 1 mg PO DAILY #90 tabs 09/22/23 Unknown Rx buspirone 15 mg tablet 15 mg PO TID #270 tabs 09/22/23 Unknown Rx hydroxyzine HCl 25 mg tablet 25 mg PO TID PRN anxiety #90 tabs 09/22/23 Unknown Rx trazodone 50 mg tablet 50 mg PO QHS PRN insomnia #90 tabs 09/22/23 Unknown Rx albuterol sulfate 90 mcg/actuation 2 inh inhalation Q6H 12/19/23 Unknown History breath activated powder inhaler,sensor celecoxib 200 mg capsule 200 mg PO DAILY 12/19/23 Unknown History montelukast 10 mg tablet 10 mg PO DAILY 12/19/23 Unknown History (Singulair) pantoprazole 40 mg tablet,delayed 40 mg PO DAILY 12/19/23 Unknown History release Allergy/AdvReac Type Severity Reaction Status Date / Time No Known Drug Allergies Allergy Other Verified 12/19/23 09:53 Surgical History History of esophagogastroduodenoscopy (EGD) History of wisdom tooth extraction History of carpal tunnel surgery (~2016) History of Social History Smoking Status: Current every day smoker tobacco type: cigarettes alcohol intake: never substance use type: does not use what type of physical activity do you participate in: walking Review of Systems (Anesthesia) ROS Narrative System reviewed and no additional complaints, except as documented.
[2023-12-28 07:45] LABS: Internal QC Validated? YES +Cl - CLEAR BKGD; Pregnancy, Urine Negative Negative
--- NOTE | 2023-12-28 08:24 | HP.PCM_ITS ---
HPI - General HPI Narrative STELLA COLLINS, is a 33 F who presents for left endoscopic carpal tunnel release. No changes to history and physical exam. Patient counseled on the pros cons risk benefits risks alternatives benefits discussed as well as postoperative recovery narcotic counseling. Typically do not give narcotics postoperatively for this. No changes to history and physical exam patient wished to continue left wrist marked they understood no further questions or concerns. MR#: [id number] Acct: [id number] Name: STELLA COLLINS Rep #: [id number] : 1990 Provider: Dr. Karan Alberto MD Age/Sex: 33/F Location[place] [facility] [place] Status: Signed Intake Vital Signs 09/21/2409:09 Height 5 ft BP 137/90 H Blood Pressure Location Rt brachial Position Sitting Pulse 111 H Pulse Source Monitor Intake Visit Reasons: LEFT WRIST Accompanied by: Self Is patient in pain?: No Allergies No Known Drug Allergies Allergy (Verified 12/05/23 10:41) Other Medications ?Medication ?Instructions ?Recorded ?Confirmed ?Type etonogestrel 68 mg subdermal 1 implant subdermal ONCE 07/20/21 12/05/23 History implant (Nexplanon) sucralfate 1 gram tablet (Carafate) 1 g PO BID #60 tabs 06/10/23 12/05/23 Rx omeprazole 40 mg capsule,delayed 40 mg PO DAILY #60 caps 06/27/23 12/05/23 Rx release venlafaxine 75 mg capsule,extended 75 mg PO DAILY #90 caps 08/11/23 12/05/23 Rx release 24 hr propranolol 10 mg tablet 10 mg PO TID PRN anxiety #90 tabs 09/08/23 12/05/23 Rx brexpiprazole 1 mg tablet 1 mg PO DAILY #90 tabs 09/22/23 12/05/23 Rx buspirone 15 mg tablet 15 mg PO TID #270 tabs 09/22/23 12/05/23 Rx hydroxyzine HCl 25 mg tablet 25 mg PO TID PRN anxiety #90 tabs 09/22/23 12/05/23 Rx trazodone 50 mg tablet 50 mg PO QHS PRN insomnia #90 tabs 09/22/23 12/05/23 Rx PFSH Medical History Abnormal endoscopy of upper gastrointestinal tract Wears glasses Depression Dietary restriction Heartburn Gastric reflux Smoker Urinary tract infection with hematuria COVID-19 Asthma Surgical History History of wisdom tooth extraction History of carpal tunnel surgery (~2017) History of Social History Smoking Status: Current every day smoker tobacco type: cigarettes alcohol intake: never substance use type: does not use what type of physical activity do you participate in: walking HPI LEFT WRIST Details: This documentation accurately reflects the service provided and the decisions made by me, Dr. Karan Alberto MD 12/05/23 0943. Part of today?s visit was documented by [ ], acting as scribe. STELLA COLLINS is a 33 year old F here today for L CTS. RHD. 3 years of symptoms. getting worse over the last 3 months. 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 getting clumsy. the thumb index middle and radial of ring. had surgery 2017 on the right side - feels the same way as it did before surgery. tried a brace now 3 months. 1 PPD cigs. Supplemental Info [facility] Pulmonary Services/Neurology [address] [place] [address] MR#: [id number] Acct: [id number] Name: STELLA COLLINS Rep #: [id number] : 1990 31 From: Milan Gonzalez DO Referring Dr: Andrew Bailey Status: REG CLI Location: PSN Date: 09/18/21 Sex: F C NCS and/or EMG Patient Report Ordering Doctor: Andrew Bailey DATE OF SERVICE: 09/18/21 Indication: One year of left wrist pain and fluctuating numbness in the first three digits as well as the lateral aspect of digit 4. Symptoms feel similar to carpal tunnel she was previously treated for on the right. There is no associated, localized or radicular neck pain. Findings: Nerve conduction studies were performed in the left upper extremity. The left median motor study recording the abductor pollicis brevis showed a normal amplitude, prolonged distal latency and slowed conduction velocity. The left uln ar motor study recording the abductor digiti minimi showed a normal amplitude, normal distal latency and normal conduction velocity. No conduction block or focal slowing was present across the elbow. Comparison lumbrical/interosseous studies demonstrated prolonged left median responses compared to the ulnar. The left median sensory response recording digit two showed a normal amplitude, prolonged latency and markedly slowed conduction velocity. The left ulnar sensory response recording digit five showed a normal amplitude, latency and conduction velocity. The left radial sensory response recording over the extensor snuff box showed a normal amplitude, latency and conduction velocity. Needle EMG of the left upper extremity was omitted given the convincing nature of the nerve conduction studies and the lack of superimposed radicular symptoms. Impression: This is an abnormal study. 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 The lesion is of moderate electrical severity. These findings would be compatible with the clinical diagnosis of carpal tunnel syndrome. Gab Gonzalez D.O. Multi Select Codes Neurology Neurology Interp Codes: 73737-73 v cndj test 7-8 studies (interp) Coding Level of Care Code Off vis,est,level 4 Diagnoses Left carpal tunnel syndrome G56.02 Assessment and Plan Assessment and Plan (1) Left carpal tunnel syndrome: Status: Acute Plan: STELLA COLLINS is a 33 year old F here today for L CTS. we discussed the diagnosis prognosis different treatment options available to the patient including but not limited to rest ice anti-inflammatories activity modifications doing nothing nighttime bracing as well as nerve gliding exercises physical therapy cortisone injections as well as open or endoscopic surgery. Patient had good results with surgery in the past. This can get worse or more permanent with time. Given this has been going on for years, surgery may be more unpr edictable, or take longer for the nerve to recover. The patient is a 1 pack-a-day smoker so I am concerned the increased risk of infection and wound healing complications and all other complications related to surgery let the patient know the patient expressed understanding of that I advised the patient to quit or cut back. They would like to go ahead with endoscopic carpal tunnel release. This is typically early return to function and work but potentially higher rate of incomplete release in the literature. Patient wants to go ahead with and we signed the consent for left endoscopic carpal tunnel release. They understood no further questions or concerns. Pros and cons risks and benefits were discussed with the patient including but not limited to infection, pain, stiffness, bleeding, damage to surrounding structures, neurovascular injury, recurrence or retear, failure or wear of hardware or fixation, instability, fracture, deep vein thrombosis and pulmonary embolism, anesthetic risks, , patient dissatisfaction, need for further surgery and other risks. Patient understood and wished to proceed with surgery, and signed the informed consent documentation. Ortho Exam General General: Yes no acute distress Neurologic: Yes alert and Yes oriented x3 Psychologic: Yes reasonable and appropriate Right Wrist/Hand Skin/Wound: No Swelling and No Ecchymosis Left Wrist/Hand Skin/Wound: Yes CDI, No Swelling, No Ecchymosis, Yes nail intact (smoker nails), Yes capillary refill normal and No erythema Left Wrist: Yes ROM-Extension 0-60, Yes ROM-Flexion 0-80, Yes ROM-Pronation 0- 80, Yes ROM-Supination 0-90 and Yes Tinel's (wrist , neg elbow); No Durken's Test, No Phalen's, No Thenar Atrophy and No Hypothenar Atrophy Motor: EPL: 5, FDP-2: 5, 1st Dorsal Interosseous: 5 and APB: 5 Sensation: Radial: I, Ulnar: I and Median: D [facility] Medical History Abnormal endoscopy of upper gastrointestinal tract Wears glasses Depression Dietary restriction Heartburn Gastric reflux Smoker Urinary tract infection with hematuria COVID-19 Asthma Home Medications ?Medication ?Instructions ?Recorded ?Last Taken ?Type etonogestrel 68 mg subdermal 1 implant subdermal ONCE 07/20/21 12/28/23 History implant (Nexplanon) venlafaxine 75 mg capsule,extended 75 mg PO DAILY #90 caps 08/11/23 12/27/23 Rx release 24 hr propranolol 10 mg tablet 10 mg PO TID PRN anxiety #90 tabs 09/08/23 12/27/23 Rx brexpiprazole 1 mg tablet 1 mg PO DAILY #90 tabs 09/22/23 12/27/23 Rx buspirone 15 mg tablet 15 mg PO TID #270 tabs 09/22/23 12/27/23 Rx hydroxyzine HCl 25 mg tablet 25 mg PO TID PRN anxiety #90 tabs 09/22/23 Unknown Rx trazodone 50 mg tablet 50 mg PO QHS PRN insomnia #90 tabs 09/22/23 12/27/23 Rx albuterol sulfate 90 mcg/actuation 2 inh inhalation Q6H 12/19/23 Unknown History breath activated powder inhaler,sensor celecoxib 200 mg capsule 200 mg PO DAILY 12/19/23 12/27/23 History montelukast 10 mg tablet 10 mg PO DAILY 12/19/23 12/27/23 History (Singulair) pantoprazole 40 mg tablet,delayed 40 mg PO DAILY 12/19/23 12/27/23 History release Allergy/AdvReac Type Severity Reaction Status Date / Time No Known Drug Allergies Allergy Other Verified 12/28/23 07:52 Surgical History History of esophagogastroduodenoscopy (EGD) History of wisdom tooth extraction History of carpal tunnel surgery (~2016) History of Social History Smoking Status: Current every day smoker tobacco type: cigarettes alcohol intake: never substance use type: does not use what type of physical activity do you participate in: walking Vital Signs Vital Signs Vital Signs: 12/28/23 07:54 12/28/23 07:54 Temperature 97.8 F Temperature Source Temporal Pulse Rate 110 H Respiratory Rate 17 Respiratory Pattern Normal Blood Pressure 121/97 H Blood Pressure Mean 105 Blood Pressure Source Monitor Blood Pressure Position Semi-Fowlers Blood Pressure Location Left Arm Pulse Ox 100 Oxygen Delivery Method Room Air Weight Weight: 211 lb 10.3 oz Body Mass Index (BMI) 41.3 Results Lab / Micro Data Labs: Laboratory Results - last 24 hr 12/28/23 07:30: Urine Test Negative
[2023-12-28] MEDS: Cefazolin 2 GM in Syringe IV (08:32)
[2023-12-28] MEDS: Bupivacaine 0.25% 30 ML Vial (08:46)
--- NOTE | 2023-12-28 09:07 | PCM.OPRPT ---
Problems Associated Problem List Diagnoses (1) Left carpal tunnel syndrome: Report of Operation Date of Procedure: 12/28/23 Pre-Operative Diagnosis: Left carpal tunnel syndrome Post-Operative Diagnosis: same Surgery/Procedure Performed:: L endoscopic carpal tunnel release Description of Surgical Findings:: Surgeon: Karan Alberto Type of Anesthesia: Local MAC Anesthesiologist: Paddy Perez Estimated Blood Loss (mL): 10 Description of Procedure: Patient brought to the operating room theater. Placed upon on the table. General anesthesia induced by the anesthetic team. Patient placed supine on the table all bony prominences padded. SCDs on the legs. Bed turned 90 degrees. Hand table used. Tourniquet applied properly padded to the upper extremity. Upper extremity prepped and draped in the usual sterile fashion with chlorhexidine-based prep solution allowing over 3 minutes drying time prior to draping. Preoperative timeout performed to confirm the site patient and the surgery. I used the [facility] endoscopic carpal tunnel kit / technique. I made a transverse 2 cm incision in line with the? transverse wrist crease.? This was in line with the fourth digit.? I carried the dissection down through skin and subcutaneous tissue achieved meticulous hemostasis. Just ulnar to palmaris tendon.? I incised the antebrachial fascia.? I passed sequential dilators into the carpal tunnel along the radial border of the Guyon's canal aiming for the fourth digit with the hand in extension.? I used a synovial elevator to identify the transverse fibers of the transverse carpal tunnel ligament.? Passed the scope into the carpal tunnel. Once I had identified the full proximal and distal extent of the ligament I fully released the ligament under direct visualization by deploying the blade and slowly withdrawing the scope made sequential passes until I no longer felt tension as well as the entire extent of the ligament was released under direct visualization.? Sounded the tunnel with joyner tenotomy scissors, complete release, no bands. Slight proximal antebrachial fascia release. Arthroscope light was more visible through the skin. Pictures taken and saved. Wounds thoroughly irrigated.? 6cc 0.25% bupivicaine for locan anesthesia. Tourniquet let down prior to end of the case and meticulous hemostasis achieved.? Thorough irrigation.? ? Incisions closed with 3-0 vicryl and 3-0 ethilon for the skin.?Then adaptic 4x4 gauze and jose. Patient woken up,? transferred off the operating room table and taken to postanesthetic care unit in stable condition. All sponge needle instrument counts were correct no complications.? Plan for the patient to be discharged home according to day surgery criteria when they are comfortable. Follow-up in the office in 2 days time. Gentle ROM hand and elbow no heavy lifting. cpt [id number]? Procedure Start Time: 08:47 Procedure Stop Time: 09:05 Complications none Admit VTE Documentation VTE Present on Admission: No VTE Mechan Device Prophylaxis: SCD's VTE Pharm Prophylaxis ordered?: No Reason prophylaxis not ordered:: Treatment Not Indicated Procedures Musculoskeletal 20xxx-29xxx: Other Procedure See Report
--- NOTE | 2023-12-28 09:10 | DCINST_ITS ---
Discharge Instructions Diet Discharge Diet: No restrictions Activity Ice area for (Minutes): 10 Lifting Restrictions: no lifting over 1 pound Keep extremity elevated above heart level: Operative Extremity Additional Activity Instructions:: ok for gentle hand finger wrist ROM Dressing / Incision Call your doctor if your incision/area has: Continuous Slow Oozing, Sudden Increased Bleeding, Increased Pain/ Swelling, Increased Redness, Foul Smelling Discharge and Swelling at the incision site Call your doctor if you observe: Fever of 101 or Higher, Coldness, Increased Pain and Numbness or Tingling Remove Dressing in: leave in place till F/U Cleanse incision/area with: Do not get Incision Wet Follow Up Care Please Follow Up With: Karan Alberto MD When: 2 days Test Results: Test results from this visit will be discussed in further detail at your follow- up appointment, if applicable. Discharge Plan Admission Attending Provider: Karan Alberto Primary Care Provider: Jennifer Dia Instructions Print Language: Panamanian Discharge Orders/Prescriptions Prescriptions: No Action Nexplanon 68 mg implant 1 implant subdermal ONCE Rx Instructions: as a single dose venlafaxine 75 mg capsule,extended release 24hr 75 mg PO DAILY Qty: 90 1RF trazodone 50 mg tablet 50 mg PO QHS PRN (Reason: insomnia) Qty: 90 1RF brexpiprazole 1 mg tablet 1 mg PO DAILY Qty: 90 1RF buspirone 15 mg tablet 15 mg PO TID Qty: 270 1RF hydroxyzine HCl 25 mg tablet 25 mg PO TID PRN (Reason: anxiety) Qty: 90 1RF celecoxib 200 mg capsule 200 mg PO DAILY pantoprazole 40 mg tablet,delayed release (DR/EC) 40 mg PO DAILY montelukast [Singulair] 10 mg tablet 10 mg PO DAILY albuterol sulfate 90 mcg/actuation aero powdr breath act w/sensor 2 inh inhalation Q6H propranolol 10 mg tablet 10 mg PO TID PRN (Reason: anxiety) Qty: 90 0RF Referrals / Follow Up: Jennifer Dia MD [Primary Care Provider] - Karan Alberto MD [Med Staff - Active Staff] - Disposition Disposition (needs filled in before D/C Order can be placed): Home, Self Care
--- NOTE | 2023-12-28 09:12 | PCM.POST.ANE ---
Anesthesia: Postop Eval I Current Vital Signs Temperature: 97.8 F Pulse Rate: 123 Blood Pressure: 104/69 Respiratory Rate: 20 Pulse Ox: 97 Assessment Airway patent: Yes Spontaneous unlabored respirations: Yes nausea: No Vomiting: No Anesthesia Complication: No Fluid Hydration Crystalloid volume administer (ml): 40 Total IV fluid infused: 40 Progress Note Anesthesia document: Postop Eval 1 completed: Yes
--- NOTE | 2023-12-28 09:24 | POSTOPAN2_ITS ---
Anesthesia Postop Eval I Sum Postop Eval Completion status Anesthesia document: Postop Eval 1 completed: Yes Anesthesia Postop Eval I Summary Anesthesia Postop Eval I Summary: Anesthesia Postop Eval I: Assessment Summary Airway patent Yes 12/28/23 09:12 ADMITTING [email or web address] Spontaneous unlabored Yes 12/28/23 09:12 ADMITTING COUNSELOR.CSIR respirations Mental status nausea No 12/28/23 09:12 ADMITTING COUNSELOR.CSIR Vomiting No 12/28/23 09:12 ADMITTING COUNSELOR.CSIR Anesthesia Postop Eval I: Fluid Summary Crystalloid volume administer 40 12/28/23 09:12 ADMITTING COUNSELOR.CSIR (ml) Colloids volume administered ( ml) Blood Product volume administered (ml) Total IV fluid infused 40 12/28/23 09:12 ADMITTING COUNSELOR.CSIR Anesthesia Postop Eval I: Summary Notes Anesthesia Complication No 12/28/23 09:12 ADMITTING COUNSELOR.CSIR Anesthesia Complication Comment: Post-operative progress note Anesthesia: Postop Eval II Evaluation Mental status: Awake Pain Level: 0 nausea: No Vomiting: No
--- NOTE | 2023-12-28 09:24 | PCM.POSTANE2 ---
Anesthesia Postop Eval I Sum Postop Eval Completion status Anesthesia document: Postop Eval 1 completed: Yes Anesthesia Postop Eval I Summary Anesthesia Postop Eval I Summary: Anesthesia Postop Eval I: Assessment Summary Airway patent Yes 12/28/23 09:12 CLINICAL APPEALS [email or web address] Spontaneous unlabored Yes 12/28/23 09:12 CLINICAL APPEALS [email or web address] respirations Mental status nausea No 12/28/23 09:12 CLINICAL APPEALS [email or web address] Vomiting No 12/28/23 09:12 CLINICAL APPEALS [email or web address] Anesthesia Postop Eval I: Fluid Summary Crystalloid volume administer 40 12/28/23 09:12 CLINICAL APPEALS [email or web address] (ml) Colloids volume administered ( ml) Blood Product volume administered (ml) Total IV fluid infused 40 12/28/23 09:12 CLINICAL APPEALS [email or web address] Anesthesia Postop Eval I: Summary Notes Anesthesia Complication No 12/28/23 09:12 CLINICAL APPEALS [email or web address] Anesthesia Complication Comment: Post-operative progress note Anesthesia: Postop Eval II Evaluation Mental status: Awake Pain Level: 0 nausea: No Vomiting: No
[2023-12-28] MEDS: HYDROcodone Bitartrate/Apap 5/325 Tablet PO (09:51)
== END 2023-12-28 10:45 | disposition home or self-care (01) ==
LOC: SDC 07:23 → AC 07:25
PROVIDERS: Anesthesiology; PCP Internal Medicine; Referring Provider Orthopaedic Surgery Sports Medicine; Visit Provider Orthopaedic Surgery Sports Medicine
PROC: (CPT 29848; principal; 2023-12-28 08:15)
DX: G56.02 Carpal tunnel syndrome, left upper limb (principal); Z86.16 Personal history of COVID-19; F17.210 Nicotine dependence, cigarettes, uncomplicated; K21.9 Gastro-esophageal reflux disease without esophagitis; J45.909 Unspecified asthma, uncomplicated
CPT/HCPCS: 29848; 81025; A4216; J2405

== ENCOUNTER 2024-01-15 17:31 | Emergency (ER) | payer MEDICAID, SELFPAY ==
[2024-01-15 17:32] VITALS: BP 177/118; PULSE 132; RESP 18; TEMP 36.6; O2SAT 99; BMI 40.2
--- NOTE | 2024-01-15 17:44 | EX.ED.UPPERE ---
HPI <CIELO Horowitz - Last Filed: 01/15/24 18:44> History of Present Illness Chief Complaint: Upper Extremity Injury Narrative Narrative: 33-year-old [id number] female presents with left arm pain and swelling. She had left carpal tunnel surgery by Dr. Alberto 2 weeks ago. Since then she has had some swelling in the hand but feels like it is worse over the last 3 days and she is also having some pain in the upper arm now. She has no weakness or numbness or tingling. She denies issues with the incision site healing or any type of drainage or fever or chills. PFS <CIELO Horowitz - Last Filed: 01/15/24 18:44> [facility] Medical History Abnormal endoscopy of upper gastrointestinal tract Wears glasses Depression Dietary restriction Heartburn Gastric reflux Smoker Urinary tract infection with hematuria COVID-19 Asthma Home Medications ?Medication ?Instructions ?Recorded ?Last Taken ?Type etonogestrel 68 mg subdermal 1 implant subdermal ONCE 07/20/21 12/28/23 History implant (Nexplanon) venlafaxine 75 mg capsule,extended 75 mg PO DAILY #90 caps 08/11/23 12/27/23 Rx release 24 hr propranolol 10 mg tablet 10 mg PO TID PRN anxiety #90 tabs 09/08/23 12/27/23 Rx brexpiprazole 1 mg tablet 1 mg PO DAILY #90 tabs 09/22/23 12/27/23 Rx buspirone 15 mg tablet 15 mg PO TID #270 tabs 09/22/23 12/27/23 Rx hydroxyzine HCl 25 mg tablet 25 mg PO TID PRN anxiety #90 tabs 09/22/23 Unknown Rx trazodone 50 mg tablet 50 mg PO QHS PRN insomnia #90 tabs 09/22/23 12/27/23 Rx albuterol sulfate 90 mcg/actuation 2 inh inhalation Q6H 12/19/23 Unknown History breath activated powder inhaler,sensor celecoxib 200 mg capsule 200 mg PO DAILY 12/19/23 12/27/23 History montelukast 10 mg tablet 10 mg PO DAILY 12/19/23 12/27/23 History (Singulair) pantoprazole 40 mg tablet,delayed 40 mg PO DAILY 12/19/23 12/27/23 History release Allergy/AdvReac Type Severity Reaction Status Date / Time No Known Drug Allergies Allergy Other Verified 01/15/24 17:33 Surgical History History of esophagogastroduodenoscopy (EGD) History of wisdom tooth extraction History of carpal tunnel surgery (~2017) History of Social History Smoking Status: Current every day smoker tobacco type: cigarettes alcohol intake: never substance use type: does not use what type of physical activity do you participate in: walking ROS <CIELO Horowitz - Last Filed: 01/15/24 18:44> ROS ED ROS Narrative Constitutional: Negative for fever, chills, malaise. CVS: Negative for chest pain. Respiratory: Negative for shortness of breath. Neuro: Negative for motor/sensory dysfunction. EXAM <CIELO Horowitz - Last Filed: 01/15/24 18:44> Physical Exam Narrative Exam Narrative: CONST: Patient sitting in no acute distress. EYES: Normal inspection. NECK: Normal inspection. RESP: No respiratory distress, CTAB. CVS: Regular rate and rhythm, no murmur, no gallop. SKIN: Color normal, no rash, warm, dry, intact. EXTREMITIES: Left anterior wrist carpal tunnel incision healing well with no dehiscence or erythema fluctuance or crepitus. No drainage. Mild swelling of the hand. No appreciable swelling or asymmetry of the upper arms or forearms. Full range of motion all joints, normal motor and sensory function in median respirations, 2+ radial pulses. NEURO: Alert and answering questions appropriately. PSYCH: Normal affect. Const Vital Signs: 01/15/24 17:32 Temperature 98 F Temperature Source Oral Pulse Rate 132 H Respiratory Rate 18 Blood Pressure 177/118 H Blood Pressure Mean 137 Pulse Ox 99 Oxygen Delivery Method Room Air MDM <CIELO Horowitz - Last Filed: 01/15/24 18:44> MDM MDM Narrative Medical decision making narrative: I have personally performed a face to face assessment of the patient and have reviewed the TALI Note. I performed a substantive portion of the visit including all aspects of the following. My katz findings include: History is remarkable for carpal tunnel surgery December [address] Alberto. She has had swelling of her hand. She states she is back at work. 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 She also complains of swelling and pain in her forearm and arm. There is no history of PE or DVT. She has not been elevating as she was instructed. She contacted the doctor end of last week and told to elevate and ice. She states she did the best she could. Exam is swelling of the digits, hand and forearm. There is pain medial left arm. There may be slight swelling of the arm. There is no axillary lymphadenopathy. There is no discoloration of the extremity. The swelling in the hand and digits is slightly pitting in nature. Medical Decision Making suspect this is lymphedema due to noncompliance with home-going instructions. Because she has pain medial left arm and had recent surgery and by definition is not low risk for DVT D-dimer was obtained. The D-dimer is negative conservative therapy. If the D-dimer is positive we will give a dose of anticoagulant and schedule vascular study of the upper extremity for tomorrow. Other additions or changes: [None] D-dimer was normal at 0.27 making her very low risk for a blood clot. I suspect her postoperative carpal tunnel release swelling has increased since she is gone back to work and has not been elevating her arm. I discussed she should elevate it above her heart. She is following up with Dr. Alberto and was discharged in stable condition. <Dr. Con Landin MD - Last Filed: 01/15/24 18:58> [facility] Narrative Medical decision making narrative: I have personally performed a face to face assessment of the patient and have reviewed the TALI Note. I performed a substantive portion of the visit including all aspects of the following. My katz findings include: History is remarkable for carpal tunnel surgery December [address] Alberto. She has had swelling of her hand. She states she is back at work. 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 She also complains of swelling and pain in her forearm and arm. There is no history of PE or DVT. She has not been elevating as she was instructed. She contacted the doctor end of last week and told to elevate and ice. She states she did the best she could. Exam is swelling of the digits, hand and forearm. There is pain medial left arm. There may be slight swelling of the arm. There is no axillary lymphadenopathy. There is no discoloration of the extremity. The swelling in the hand and digits is slightly pitting in nature. Medical Decision Making suspect this is lymphedema due to noncompliance with home-going instructions. Because she has pain medial left arm and had recent surgery and by definition is not low risk for DVT D-dimer was obtained. The D-dimer is negative conservative therapy. If the D-dimer is positive we will give a dose of anticoagulant and schedule vascular study of the upper extremity for tomorrow. Other additions or changes: Since the D-dimer is normal no further studies are needed. Treatment is conservative. D-dimer was normal at 0.27 making her very low risk for a blood clot. I suspect her postoperative carpal tunnel release swelling has increased since she is gone back to work and has not been elevating her arm. I discussed she should elevate it above her heart. She is following up with Dr. Alberto and was discharged in stable condition. Discharge Plan Triage Chief Complaint: Upper Extremity Injury ED Midlevel Provider: Cadence Pollard ED Provider: Con Landin Dx/Rx/DC Orders Clinical Impression: Left arm swelling, History of carpal tunnel surgery of left wrist Instructions: Carpal Tunnel Release Surgery Prescriptions: No Action Nexplanon 68 mg implant 1 implant subdermal ONCE Rx Instructions: as a single dose venlafaxine 75 mg capsule,extended release 24hr 75 mg PO DAILY Qty: 90 1RF trazodone 50 mg tablet 50 mg PO QHS PRN (Reason: insomnia) Qty: 90 1RF brexpiprazole 1 mg tablet 1 mg PO DAILY Qty: 90 1RF buspirone 15 mg tablet 15 mg PO TID Qty: 270 1RF hydroxyzine HCl 25 mg tablet 25 mg PO TID PRN (Reason: anxiety) Qty: 90 1RF celecoxib 200 mg capsule 200 mg PO DAILY pantoprazole 40 mg tablet,delayed release (DR/EC) 40 mg PO DAILY montelukast [Singulair] 10 mg tablet 10 mg PO DAILY albuterol sulfate 90 mcg/actuation aero powdr breath act w/sensor 2 inh inhalation Q6H propranolol 10 mg tablet 10 mg PO TID PRN (Reason: anxiety) Qty: 90 0RF Primary Care Provider: Jennifer Dia Referrals: Jennifer Dia MD [Primary Care Provider] - Activity Restrictions/Additional Instructions: Your blood test called a D-dimer is in the normal range which makes you very low risk to have a blood clot. I recommend you treat the swelling with elevating your arm above the level of your heart and Tylenol as needed. Follow-up with Dr. Alberto. Print Language: Kazakh Disposition Disposition: Home, Self Care Discharge Date/Time: 01/15/24 18:46
[2024-01-15 17:48] VITALS: BP 139/86; PULSE 115; O2SAT 98
[2024-01-15 18:37] LABS: D-Dimer Quantitative (DVT/PE) 0.27 FEU/ug/m (0.27-0.49)
[2024-01-15 18:42] VITALS: BP 139/86; PULSE 115; RESP 18; TEMP 36.6; O2SAT 98
== END 2024-01-15 18:46 | disposition home or self-care (01) ==
PROVIDERS: Physician Assistant; Emergency Provider Emergency Medicine; PCP Internal Medicine; Visit Provider Emergency Medicine
DX: M79.89 Other specified soft tissue disorders (principal); M79.602 Pain in left arm; Z98.890 Other specified postprocedural states; K21.9 Gastro-esophageal reflux disease without esophagitis; J45.909 Unspecified asthma, uncomplicated; F17.210 Nicotine dependence, cigarettes, uncomplicated
CPT/HCPCS: 85379; 99283; A4216

== ENCOUNTER → 2024-05-24 | Outpatient (CLI) | payer MEDICAID, SELFPAY ==
[2024-05-24 12:26] LABS: Absolute Lymphocyte Count 4.46 X10^3/uL (0.83-4.51); Absolute Neutrophil Count 7.9 X10^3/uL (2.0-7.7); Basophil# 0.05 X10^3/uL; Basophil% 0.4 % (0-1); Eosinophil# 0.44 X10^3/uL; Eosinophils% 3.3 % (0-5); Hemoglobin 13.4 g/dL (12.0-15.0); Lymphocyte # 4.46 X10^3/ul (0.83-4.51); Lymphocyte % 33.1 % (19-41); Mean Corp Hgb Conc 32.7 g/dL (32-36); Mean Corpuscular Hgb 28.3 pg (27.0-32.0); Mean Corpuscular Volume 86.5 fL (81-99); Mean Platelet Vol. 9.1 fl (6.2-12.0); Monocyte# 0.61 X10^3/uL; Monocyte% 4.5 % (0-10); NRBC Flagged by Analyzer 0 % (0-5); Neutrophil # 7.86 X10^3/uL (2.7-7.7); Neutrophil % 58.4 % (47-70); Platelet Count 373 K/mm3 (150-450); RBC Distribution Width SD 40.6 fl (35.1-43.9); Red Blood Count 4.74 M/mm3 (4.2-5.4); White Blood Count 13.5 K/mm3 (4.4-11.0)
[2024-05-24 13:34] LABS: Ferritin 46 ng/mL (22-378); Thyroid Stim Hormone (TSH) 0.561 uIU/mL (0.300-4.200); Vitamin D,25 Hydroxy 30.5 ng/mL (30-100)
[2024-05-28 01:07] LABS: Anti-Thyroglobulin AB < 1.0 IU/mL (0.0-0.9); Thyroglobulin, Serum Qt. 23.6 ng/mL (1.5-38.5); Zinc, WHOLE BLOOD 570 ug/dL (440-860)
[2024-05-28 09:08] LABS: Anti-Nuclear Antibody Test Negative (.); Vitamin D 1,25-Dihydroxy 43.2 pg/mL (24.8-81.5)
== END | disposition home or self-care (01) ==
PROVIDERS: PCP Internal Medicine; Referring Provider Physician Assistant; Visit Provider Physician Assistant
DX: L65.0 Telogen effluvium (principal); F17.200 Nicotine dependence, unspecified, uncomplicated
CPT/HCPCS: 36415; 82306; 82627; 82652; 82728; 84432; 84439; 84443; 84630; 85025; 86038; 86800; 82626

== ENCOUNTER 2024-08-21 02:34 | Emergency (ER) | payer MEDICAID, SELFPAY ==
[2024-08-21 02:35] VITALS: BP 159/112; PULSE 132; RESP 22; TEMP 36.9; O2SAT 100; BMI 42.5
--- NOTE | 2024-08-21 02:42 | RAD_ITS ---
PROCEDURE: KNEE 3 VIEWS 08/21/2024 REASON FOR EXAM: FALL, LAC TECHNIQUE: 3 view(s) of the left knee COMPARISON: None. FINDINGS: Mild tricompartmental changes of degenerative joint disease. No fracture or dislocation is seen. Anterior/infrapatellar skin defect is noted with underlying tiny radiopaque foreign bodies and/or calcifications. Please correlate clinically. RAD/Knee 3 Views IMPRESSION: Anterior/infrapatellar skin defect is noted with underlying tiny radiopaque for eign bodies and/or calcifications. Please correlate clinically. No radiographic evidence of an acute bone abnormality. Reading Location: [facility]
[2024-08-21] MEDS: Lidocaine 1% (20 ml mdv) 20 ML Vial 10 ML INFILT (02:47)
--- NOTE | 2024-08-21 02:50 | RAD_ITS ---
PROCEDURE: ELBOW MIN 3 VIEWS 08/21/2024 REASON FOR EXAM: FALL TECHNIQUE: 4 views of the left COMPARISON: None. FINDINGS: Plastic tube is projecting over the distal/medial soft tissues of the arm. Please evaluate clinically. Normal radiocapitellar articulation. Normal ulnotrochlear articulation. Normal distal humerus and epicondyles. Normal proximal ulna and olecranon process. Normal proximal radius. RAD/Elbow min 3 Views IMPRESSION: No radiographic evidence of an acute bone abnormality. Plastic tube is projecting over the distal/medial soft tissues of the arm. Plea se evaluate clinically. [facility]
--- NOTE | 2024-08-21 02:50 | RAD_ITS ---
PROCEDURE: HAND MIN 3 VIEWS 08/21/2024 REASON FOR EXAM: FALL TECHNIQUE: 4 view(s) of the right hand COMPARISON: None. FINDINGS: Normal visualized carpal bones. Normal first metacarpus. Normal second through fifth metacarpi. Normal phalanges. There is no demonstrated fracture. Normal carpal articulations. Normal carpometacarpal (CMC) articulation of the thumb. Normal metacarpophalangeal (MCP) joint of the thumb. Normal interphalangeal (IP) joint of the thumb. Normal second through fifth carpometacarpal (CMC) joints. Normal second through fifth metacarpophalangeal (MCP) joints. Normal proximal interphalangeal (PIP) and distal interphalangeal (DIP) joints of the second through fifth fingers. RAD/Hand Min 3 Views IMPRESSION: No evidence for acute abnormality. [facility]
--- NOTE | 2024-08-21 03:07 | RAD_ITS ---
PROCEDURE: HAND MIN 3 VIEWS 08/21/2024 REASON FOR EXAM: FALL TECHNIQUE: 3 view(s) of the left hand COMPARISON: None. FINDINGS: Normal visualized carpal bones. Normal first metacarpus. Normal second through fifth metacarpi. Normal phalanges. There is no demonstrated fracture. Normal carpal articulations. Normal carpometacarpal (CMC) articulation of the thumb. Normal metacarpophalangeal (MCP) joint of the thumb. Normal interphalangeal (IP) joint of the thumb. Normal second through fifth carpometacarpal (CMC) joints. Normal second through fifth metacarpophalangeal (MCP) joints. Normal proximal interphalangeal (PIP) and distal interphalangeal (DIP) joints of the second through fifth fingers. RAD/Hand Min 3 Views IMPRESSION: No evidence for acute abnormality. Reading Location[facility]
--- NOTE | 2024-08-21 03:08 | EDS_ITS ---
HPI History of Present Illness Chief Complaint: Laceration Narrative Narrative: Patient is a 34-year-old female with past medical history of anxiety, depression, asthma who presents to the emergency department the chief complaint of fall. Patient states that she was going down a steep driveway when she slipped and fell on rocks cutting her left knee. She states that she is having severe pain in her left knee and notes that she is also having pain in her right hand left elbow. Patient denies any blood thinning medications she states that she is unsure when her last tetanus shot was. [facility] Medical History Abnormal endoscopy of upper gastrointestinal tract Wears glasses Depression Dietary restriction Heartburn Gastric reflux Smoker Urinary tract infection with hematuria COVID-19 Asthma Home Medications ?Medication ?Instructions ?Recorded ?Last Taken ?Type etonogestrel 68 mg subdermal 1 implant subdermal ONCE 07/20/21 12/28/23 History implant (Nexplanon) albuterol sulfate 90 mcg/actuation 2 inh inhalation Q6 H 12/19/23 Unknown History breath activated powder inhaler,sensor montelukast 10 mg tablet 10 mg PO DAILY 12/19/2312/12 History (Singulair) pantoprazole 40 mg tablet,delayed 40 mg PO DAILY 12/1812/27/23 History release brexpiprazole 1 mg tablet 1 mg PO DAILY #90 tabs 08/16 Unknown Rx hydroxyzine HCl 25 mg tablet 25 mg PO TID PRN anxiety #90 tabs 08/16/24 Unknown Rx propranolol 10 mg tablet 10 mg PO TID PRN anxiety #90 tabs 08/16/24 Unknown Rx trazodone 50 mg tablet 50 mg PO QHS PRN insomnia #9 0 tabs 08/16/24 Unknown Rx venlafaxine 150 mg 150 mg PO DAILY #90 caps 08/05 Unknown Rx capsule,extended release 24 hr buspirone 15 mg tablet 15 mg PO TID PRN anxiety 01/05 Unknown History Allergy/AdvReac Type Severity Reaction Status Date / Time No Known Drug Allergies Allergy Other Verified 08/21/24 02:45 Surgical History History of esophagogastroduodenoscopy (EGD) History of wisdom tooth extraction History of carpal tunnel surgery (~2017) History of Social History Smoking Status: Current every day smoker tobacco type: cigarettes alcohol intake: never substance use type: does not use what type of physical activity do you participate in: walking ROS ROS ED ROS Narrative Constitutional: Denies headache, fevers, chills Neurological: Denies numbness, weakness, tingling Musculoskeletal: Complains of left knee pain as noted above, right hand pain left elbow pain Skin: Complains of laceration to the left knee EXAM Physical Exam Narrative Exam Narrative: General: Patient lying in bed did not appear to be uncomfortable secondary to the pain Head: Atraumatic, normocephalic Eyes: PERRL bilaterally, EOMI bilaterally, no conjunctival injection noted Neck: Soft, supple, trachea midline Cardiovascular: Patient tachycardic with a regular rhythm Respiratory: Clear to auscultation bilaterally Abdomen: No tenderness palpation Musculoskeletal: Patient has pain with attempted range of motion of the left knee she has some tenderness palpation over the volar aspect of the right proximal hand, tenderness to palpation of the left elbow, right elbow as well. All of the bony prominences palpated joints taken to full range of motion no pain elicited Extremities: DP pulses +2/4 in the bilateral lower extremities, +5/5 strength noted in the bilateral upper extremities in the right lower extremity, +4/5 strength noted in the left lower extremity secondary to pain Neurological: Patient following commands knew that she was at [facility] the year is 2024. Sensation grossly intact in the bilateral lower extremities Skin: Warm, dry, patient has a large 5-1/2 cm laceration just distal to her left kneecap no active bleeding noted. Patient also has a avulsion lesion to the palmar aspect of her right hand this is not suturable. Const Vital Signs: 08/21/24 02:35 Temperature 98.4 F Temperature Source Oral Pulse Rate 132 H Respiratory Rate 22 H Blood Pressure 159/112 H Blood Pressure Mean 127 Pulse Ox 100 Oxygen Delivery Method Room Air MDM MDM MDM Narrative Medical decision making narrative: Patient is a 34-year-old female who presents to the emergency department with a chief complaint of fall and laceration to the left knee. On the differential diagnosis includes but limited to tibial plateau fracture, distal femur fracture, patella fracture, metacarpal fracture, elbow fracture. Once workup is obtained reviewed she will be reevaluated. Patient tetanus shot will be updated. Patient is able to do straight leg raise on the left side without difficulty Patient's x-ray of her left hand reviewed by myself by radiology showed no acute abnormality. Patient's x-ray of her right hand reviewed by myself by radiology showed no acute abnormality. Patient's x-ray of her left elbow reviewed by myself my radiology which showed plastic tube projecting over the distal medial soft tissues of the arm she has a Nexplanon implant no radiographic evidence of acute bony abnormality. Patient's x-ray of her left knee reviewed by myself and by radiology which showed a anterior inferior patellar skin defect noted with underlying tiny radiopaque foreign bodies noted and/or calcifications please correlate clinically. Patient had her wound copiously irrigated with some debris removed with irrigation. Laceration was repaired she was advised to have the sutures removed in 10 days see procedure note for separate details. She was vies follow-up with primary care physician return with worsening symptoms or any concerns. She is agreeable this plan all question concerns answered she is discharged home in stable condition Procedure note Procedure name: Laceration repair Indication: Reduce risk of infection Location: 5-1/2 cm linear laceration on her left knee below her patella. Patient also has a complex laceration superior to this laceration measuring 1- 1/2 cm Preprocedure diagnosis: Laceration Postprocedure diagnosis: Repaired laceration Informed consent was obtained prior to procedure started. Procedure: The appropriate timeout was taken. The area was prepped and draped in usual sterile fashion. Local anesthesia was achieved using 12 cc of lidocaine 1% without epinephrine. Wound was copiously irrigated. Patient had 1 [id number] stitch placed using 5-0 Vicryl on the lateral aspect of the cut secondary to arterial bleed. After this was placed patient had no further bleeding. 14 4-0 Ethilon interrupted sutures were placed in the larger laceration and additional three 4-0 Ethilon interrupted sutures were placed in the small complex laceration superior to this Estimated blood loss was less than 0.5 mL. Dressing was applied to the area and anticipatory guidance, as well as standard postprocedure care was explained. Return precautions are given. Patient tolerated procedure well without any complications. Follow-up visit for suture removal and evaluation of laceration. Radiography Diagnostic Testing: Clinical Impression(s) from Imaging Studies Knee X-Ray 08/21/24 02:42 IMPRESSION: Anterior/infrapatellar skin defect is noted with underlying tiny radiopaque foreign bodies and/or calcifications. Please correlate clinically. No radiographic evidence of an acute bone abnormality. Reading Location: [facility] Elbow X-Ray 08/21/24 02:50 IMPRESSION: No radiographic evidence of an acute bone abnormality. Plastic tube is projecting over the distal/medial soft tissues of the arm. Please evaluate clinically. Reading [facility] Hand X-Ray 08/21/24 02:50 IMPRESSION: No evidence for acute abnormality. Reading Location[facility] Hand X-Ray 08/21/24 03:07 IMPRESSION: No evidence for acute abnormality. Reading [facility] Discharge [facility] Triage Chief Complaint: Laceration ED Provider: Martin Ho Dx/Rx/DC Orders Clinical Impression: Laceration, Fall, Abrasion of skin Prescriptions: No Action Nexplanon 68 mg implant 1 implant subdermal ONCE Rx Instructions: as a single dose pantoprazole 40 mg tablet,delayed release (DR/EC) 40 mg PO DAILY montelukast [Singulair] 10 mg tablet 10 mg PO DAILY albuterol sulfate 90 mcg/actuation aero powdr breath act w/sensor 2 inh inhalation Q6H buspirone 15 mg tablet 15 mg PO TID PRN (Reason: anxiety) brexpiprazole 1 mg tablet 1 mg PO DAILY Qty: 90 1RF hydroxyzine HCl 25 mg tablet 25 mg PO TID PRN (Reason: anxiety) Qty: 90 1RF propranolol 10 mg tablet 10 mg PO TID PRN (Reason: anxiety) Qty: 90 0RF trazodone 50 mg tablet 50 mg PO QHS PRN (Reason: insomnia) Qty: 90 1RF venlafaxine 150 mg capsule,extended release 24hr 150 mg PO DAILY Qty: 90 1RF Primary Care Provider: Jennifer Dia Referrals: Jennifer Dia MD [Primary Care Provider] - Activity Restrictions/Additional Instructions: Your tetanus shot was updated here today. Have your sutures removed in approximately 10 days. Do not soak these sutures. Watch out for signs infection such as surrounding redness or purulent drainage coming from the wound if this is to occur he should follow-up with your doctor or return to the emergency department immediately. Print Language: Eritrean Disposition Disposition: Home, Self Care
--- OUTSIDE RECORDS SUMMARY | 2024-08-21 03:25 | XMS RPT_ITS | CCD ---
Author Organization [facility] Care Team Providers Care Manager Store Name Role Phone Mikael Benítez V Unavailable Unavailable Mikael Benítez V Unavailable Unavailable No Doctor Assigned, Nodr Unavailable Unavail able Required, No Pcp Unavailable Unavailable Wan Hawthorne Unavailable Isma Almanza MD Primary Care Provider Dr. Isma Almanza Primary Care Provider Dr. Isma Almanza Referring Provider CIELO Swann Attending Provider CIELO Swann Referring Provider CIELO Swann Other Provider Dr. Milan Gonzalez Attending Provider Isma Almanza MD Primary Care Provider None, No PCP Unavailable Unavailable Isma Almanza MD Primary Care Provider Isma Almanza Unavailable Vitaliy Lopez Unavailable Unavailable Vitaliy Lopez Attending Unavailable Dr. Isma Almanza Primary Care Unavaila ble ISMA ALMANZA Primary Care Unavailable VITALIY LOPEZ Attending Unavailable Dr. Isma Almanza Primary Care Provider Dr. Umesh Jimenez Attending Provider Dr. Yolanda Dumont Referring Provider Dr. Isma lAmanza Referring Provider Dr. Isma Almanza Primary Care Provider Dr. Umesh Jimenez Attending Provider Dr. Yolanda Dumont Referring Provider South, Dr. Rodriguez Referring Provider Dr. Umesh Jimenez Other Provider Dr. Isma Almanza Primary Care Provider Dr. Umesh Jimenez Attending Provider Isma Almanza MD Primary Care Provider ABEBA CHASE Referring Unavailable GANTA, ISMA Primary Care Unavailable Jesse GARG, Janice Tavarez Unavailable [phone] Older WEALTH MANAGEMENT MANAGER.LYFT DRIVER, Krupa Unavailable Monica Dumont PA-C Unavailable GANTA, ISMA Primary Care Unavailable MARTINA BAUTISTA Attending Unavailable MARTINA BAUTISTA Referring Unavailable GANTA, ISMA Primary Care Unavailable CHASEABEBA Attending Unavailable GANTA, ISMA Primary Care Unavailable SILVESTRE DIANA Referring Unavailable GANTA, ISMA Primary Care Unavailable GANTA, ISMA Primary Care Unavailable GANTA, ISMA Primary Care Unavailable GANTA, ISMA Primary Care Unavailable GANTA, ISMA Primary Care Unavailable RUBEN JAIN Referring Unavailable GANTA, ISMA Primary Care Unavailable GANTA, ISMA Primary Care Unavailable CHASE, ABEBA Referring Unavailable GANTA, ISMA Primary Care Unavailable CHASEABEBA Attending Unavailable GANTA, ISMA Primary Care Unavailable GANTA, ISMA Primary Care Unavailable GANTA, ISMA Primary Care Unavailable PHYSICIAN, NONE Primary Care Physician Unavailab le PHYSICIAN, NONE Primary Care Unavailable MIGUEL A LERMA MD Attending Unavail able Ganta, Isma Primary Care Unavailable Karan Alberto Attending Unavailable Karan Alberto Referring Unavailable Provider, Ed Physician Attending Unavailab le Ganta, Isma Primary Care Unavailable Ganta, Isma Primary Care Unavailable Betsy Venegas Attending Unavailable Betsy Venegas Referring Unavailable Ganta, Isma Primary Care Unavailable Con Landin Attending Unavailable Ganta, Isma Primary Care Unavailable Karan Alberto Attending Unavailable Karan Alberto Referring Unavailable Karan Alberto Consulting Unavailable Ganta, Isma Primary Care Unavailable Karan Alberto Attending Unavailable Ganta, Isma Referring Unavailable Ganta, Isma Primary Care Unavailable Karan Alberto Attending Unavailable Ganta, Isma Referring Unavailable Ganta, Isma Primary Care Unavailable Karan Alberot Attending Unavailable Ganta, Isma Referring Unavailable RosasHalle Attending Unavailable Ganta, Isma Primary Care Unavailable RosasYessyon Attending Unavailable Ganta, Isma Primary Care Unavailable Ganta, Isma Referring Unavailable Ganta, Isma Primary Care Unavailable Karan Alberto Attending Unavailable Rosas, Halle Attending Unavailable Ganta, Isma Primary Care Unavailable Ganta, Isma Primary Care Unavailable Yessy Rosason Attending Unavailable Ganta, Isma Primary Care Unavailable Karan Alberto Attending Unavailable Ganta, Isma Referring Unavailable Ganta, Isma Primary Care Unavailable Karan Alberto Attending Unavailable Ganta, Isma Referring Unavailable Allergies Allergy Classification Reported Allergen(s) Allergy Type Date of Onset Reaction(s) Facility (1 source) No Known Medication Allergies; Translations: [No Known Medication Allergies] Propensity to adverse reactions to drug (disorder) [facility] Repository Medications Current Medications Medication Drug Class(es) Dates Sig (Normalized) Sig (Original) albuterol 0.83 mg/ml inhalation solution (20 sources) beta2-Adrenergic Agonist Start: 06-09-2024 albuterol (PROVENTIL) 2.5 mg /3 mL (0.083 %) nebulizer solution Indications: Mild intermittent asthma with acute exacerbation (HCC) Use 3 mL via nebulizer every 4 hours as needed for wheezing/shortness of breath for up to 25 doses. 75 mL 06/09/2024 Active Start: 09-02-2021 End: 02-16-2024 take 2 puff(s) by inhalation every four hours as needed for wheezing albuterol HFA (VENTOLIN HFA) 90 mcg/actuation inhaler Indications: Cough , Shortness of breath Inhale 2 Puffs as instructed every 4 hours as needed for wheezing/shortness of breath. 1 Each 11 01/17/2024 Active Start: 03-25-2021 take 2 puff(s) by in halation every four hours as needed for wheezing albuterol HFA (VENTOLIN HFA) 90 mcg/actuation inhaler Indications: Cough , Shortness of breath Inhale 2 Puffs as instructed every 4 hours as needed for wheezing/shortness of breath. 1 Inhaler 2 03/25/2021 Active Comment on above: Inhale 2 Puffs as in structed every 4 hours as needed for wheezing/shortness of breath. amoxicillin 875 mg oral tablet (14 sources) Penicillin-class Antibacterial Start: 08-26-19 End: 09-05-19 take 1 tablet by mouth twice daily amoxicillin (AMOXIL) 875 mg tablet Indications: Pain, dental Take 1 tablet by mouth two times a day for 10 days. 20 tablet 0 08/26/2023 09/05/2023 Active Start: 10-09-2022 End: 01-26-2023 take 500 mg by mouth three times daily Amoxicillin Discontinued 500 MG PO THREE TIMES A DAY October 09, 2022 12:00am January 26, 2023 10:59pm Start: 05-13-2022 End: 05-23-2022 take 500 mg by mouth three times daily Amoxicillin Discontinued 500 MG PO THREE TIMES A DAY 10 01May 13, 2022 1:00am May 23, 2022 1:04am Start: 05-08-2017 End: 05-18-2017 take 500 mg by mouth twice daily Amoxicillin Discontinued 500 MG PO TWICE A DAY 31 12May 08, 2017 1:00am May 18, 2017 1:05am brexpiprazole 0.5 mg oral tablet (20 sources) Atypical Antipsychotic Start: 06-09-2023 take 1 tablet by mouth once daily Brexpiprazole (Brexpiprazole 0.5 Mg Tablet) 0.5 mg tablet Active 0.5 MG PO DAILY June 09, 2023 12:00am busPIRone hydrochloride 15 mg oral tablet (20 sources) Start: 06-09-2023 take 15 mg by mouth twice daily Buspirone Active 15 MG PO TWICE A DAY June 09, 2023 12:00am Start: 01-26-2023 End: 05-05-2023 take 15 mg by mouth twice daily Buspirone Discontinued 15 MG PO TWICE A DAY January 26, 2023 1:00am May 05, 2023 11:43am Start: 01-26-2023 End: 01-26-2023 Buspirone Discontinued MG No [id number] 1:00am January 26, 2023 11:02pm Start: 11-12-2022 take 1 tablet by lo three times daily busPIRone (BUSPAR) 10 mg tablet Take 1 tablet by mouth three times daily. 90 tablet 5 11/12/2022 Active Start: 05-27-2022 End: 11-12-2022 busPIRone (BUSPAR) 5 mg tabl et Take 1 to 2 tablets upto 3 times a day 150 tablet 3 07/12/2022 11/12/2022 Discontinued BuSpar Quantity: 0 Refills: 0 Ordered: 10-Aug-2022 Joesph Hobbs Generic Substitution Allowed Comment on above: Take 1 tablet by lo three times daily. Take 1 to 2 tablets upto 3 times a day celecoxib 200 mg oral capsule (15 sources) Nonsteroidal Anti-inflammatory Drug Start: 12-19-2023 take 1 capsule by mouth once daily celecoxib (CELEBREX) 200 mg capsule Indications: Left foot pain Take 1 capsule by mouth once daily. 30 capsule 2 12/19/2023 Active Start: 10-14-2023 End: 12-16-2023 take 1 capsule by mouth once daily celecoxib (CELEBREX) 200 mg capsule Indications: Left foot pain Take 1 capsule by mouth once daily. 30 capsule 1 10/14/2023 12/16/2023 Discontinued dicyclomine hydrochloride 20 mg oral tablet (3 sources) Anticholinergic Start: 05-05-2023 take 20 mg by mouth twice daily Dicyclomine Active 20 MG PO TWICE A DAY May 05, 2023 2:58pm etonogestrel 68 mg drug implant (20 sources) Progestin Start: 07-20-2021 Etonogestrel (Nexplanon) 68 mg implant Active 1 IMPLANT subdermal ONCE July 20, 2021 12:00am as a single dose Start: 08-05-2020 End: 08-05-2023 etonogestrel (NEXPLANON) sub dermal implant 68 mg Indications: Insertion of implantable subdermal contraceptive 1 Each by SUBDERMAL route as directed. 1 Each 08/05/2020 Active Start: 07-24-2016 inject 1 dose by sub cutaneous injection once Implanon Dose : 68 mg =, Subcutaneous, Once, 0 Refill(s) Start Date: 07/24/16 Status: Ordered Repeat number: 1 Comment on above: 1 Each by SUBDERMAL route as directed. famotidine 20 mg oral tablet (2 sources) Histamine-2 Receptor Antagonist Start: 2 End: 2 take 1 tablet by mouth every twenty-four hours as needed famotidine (PEPCID) 20 mg tablet Take 1 tablet by mouth at bedtime as needed. 30 tablet 0 06/09/2021 07/09/2021 Active Comment on above: Take 1 tablet by lo at bedtime as needed. fluconazole 150 mg oral tablet (10 sources) Azole Antifungal Start: 4 End: 4 fluconazole (DIFLUCAN) 150 mg tablet Indications: Feared condition not demonstrated Take 1 tablet by mouth one time only for 1 dose. Repeat in 3 days as needed. 2 tablet 0 08/26/2023 08/26/2023 Active Start: 05-13-2022 End: 01-26-2023 take 200 mg by mouth once daily Fluconazole Discontinued 200 MG PO DAILY May 13, 2022 1:00am January 26, 2023 10:59pm as instructed Start: 01-22-2019 End: 04-26-2019 take 150 mg by mouth once Fluconazole Discontinued 150 MG PO ONE TIME January 22, 2019 1:00am April 26, 2019 4:00pm 120 actuat fluticasone propionate 0.23 mg/actuat / salmeterol 0.021 mg/actuat metered dose inhaler (20 sources) Corticosteroid, beta2-Adrenergic Agonist Start: 01-17-2024 End: 01-16-2025 take 2 puff(s) by inhalation twice daily fluticasone-salmeterol HFA (ADVAIR HFA) 230-21 mcg/actuation inhaler Indications: Cough , Shortness of breath Inhale 2 Puffs as instructed two times a day. 1 Each 01/17/2024 01/16/2025 Active Start: 2021 End: 01-17-2024 take 1 puff(s) by mouth twice daily fluticasone-salmeterol (ADVAIR DISKUS) 250-50 mcg/dose inhaler Inhale 1 Puff as instructed twice daily. RINSE AND GARGLE MOUTH WITH WATER AFTER EACH USE. 1 Each 2021 01/17/2024 Discontinued Start: 2021 take 1 puff(s) by mo [facility] twice daily fluticasone-salmeterol (ADVAIR DISKUS) 250-50 mcg/dose inhaler Inhale 1 Puff as instructed twice daily. RINSE AND GARGLE MOUTH WITH WATER AFTER EACH USE. 1 Each 5 2021 Active Start: 2021 take 1 puff(s) by mo [facility] twice daily fluticasone-salmeterol (ADVAIR DISKUS) 250-50 mcg/dose inhaler Inhale 1 Puff as instructed twice daily. RINSE AND GARGLE MOUTH WITH WATER AFTER EACH USE. 1 Each 5 2021 Active Comment on above: Inhale 1 Puff as ins tructed twice daily. RINSE AND GARGLE MOUTH WITH WATER AFTER EACH USE. hydrOXYzine hydrochloride 25 mg oral tablet (20 sources) Antihistamine Start: 01-31-20 take 1 tablet by mouth every eight hours as needed hydrOXYzine HCl (ATARAX) 25 mg tablet Take 1 tablet by mouth three times a day as needed for anxiety. 30 tablet 1 01/30/2023 Active Start: 01-26-2023 End: 05-05-2023 take 25 mg by mouth every eight hours Hydroxyzine Hcl Discontinued 25 MG PO Q8H January 26, 2023 1:00am May 05, 2023 11:43am Start: 11-12-2022 End: 01-28-2023 take 1 tablet by mouth every eight hours as needed hydrOXYzine HCl (ATARAX) 25 mg tablet Take 1 tablet by mouth three times daily as needed for anxiety. 30 tablet 1 11/12/2022 01/28/2023 Discontinued Comment on above: Take 1 tablet by [facility] three times daily as needed for anxiety. Take 1 tablet by [facility] three times a day as needed for anxiety. meloxicam 15 mg oral tablet (2 sources) Nonsteroidal Anti-inflammatory Drug Start: 09-29-19 24 End: 10-14-19 24 take 1 tablet by mouth once daily at mealtime meloxicam (MOBIC) 15 mg tablet Indications: Pain of left heel Take 1 tablet by mouth once daily for 15 days. Take with food. 15 tablet 0 09/29/2023 10/14/2023 Active methocarbamol 500 mg oral tablet (3 sources) Muscle Relaxant Start: 03-26-19 25 End: 03-29-19 25 take 1 tablet by mouth every six hours as needed methocarbamol (ROBAXIN) 500 mg tablet Take 1 tablet by mouth every 6 hours as needed (Pain) for up to 3 days. 12 tablet 03/26/2024 03/29/2024 Active Start: 12-24-2021 End: 12-27-2021 take 1 tablet by mouth every six hours as needed for pain methocarbamol (ROBAXIN) 500 mg tablet Indications: Sciatica, right side Take 1 tablet by mouth every 6 hours as needed (Pain) for up to 3 days. 12 tablet 0 12/24/2021 12/27/2021 Active Comment on above: Take 1 tablet by lo th every 6 hours as needed (Pain) for up to 3 days. montelukast 10 mg oral tablet (20 sources) Leukotriene Receptor Antagonist Start: End: 4 take 1 tablet by mouth once daily at bedtime montelukast (SINGULAIR) 10 mg tablet Take 1 tablet by mouth daily at bedtime. 30 tablet 11 01/17/2024 Active Singulair Quanti ty: 0 Refills: 0 Ordered: 10-Aug-2022 Joesph Hobbs Generic Substitution Allowed Comment on above: Take 1 tablet by lo th daily at bedtime. nitrofurantoin, macrocrystals 25 mg / nitrofurantoin, monohydrate 75 mg oral capsule (13 sources) Nitrofuran Antibacterial Start: 12-14-19 End: 12-19-19 24 take 1 capsule by mouth twice daily nitrofurantoin monohydrate and macrocrystal (MACROBID) 100 mg capsule Take 1 capsule by mouth two times a day for 5 days. 10 capsule 12/14/2023 12/19/2023 Active Start: 08-10-2022 End: 08-16-2022 take 1 capsule by mouth twice daily at mealtime Macrobid 100 mg oral capsule ; 1 cap(s) orally 2 times a day Quantity: 14 Refills: 0 Ordered: 10-Aug-2022 Vitaliy Lopez Start: 10-Aug-2022 End: 16-Aug-2022 Generic Substitution Allowed Comments: Finish all this medication unless otherwise directed by prescriber.May discolor urine or feces.Take with food or milk. Start: 12-05-2019 End: 12-10-2019 take 1 capsule by mouth every twelve hours at mealtime Nitrofurantoin Monohyd/M-Cryst (Macrobid) 100 mg capsule Discontinued 100 MG PO Q12H 10 December 05, 2019 12:00am December 10, 2019 12:02am must administer with a meal/food Start: 01-22-2019 End: 04-26-2019 take 100 mg by mouth every twelve hours Nitrofurantoin Monohyd/M-Cryst Discontinued 100 MG PO EVERY 12 HOURS 14 January 22, 2019 1:00am April 26, 2019 4:00pm Comment on above: Finish all this medi cation unless otherwise directed by prescriber.May discolor urine or feces.Take with food or milk. omeprazole 20 mg delayed release oral capsule (1 source) Proton Pump Inhibitor Start: 017 omeprazole 20 mg oral delayed release capsule (NF) Dose : 20 mg = 1 cap(s), Oral, qDayAC, # 30 cap(s), 0 Refill(s) Start Date: 07/24/16 Status: Ordered Quantity: 30.0 Unit: cap(s) Repeat number: 1 ondansetron 4 mg disintegrating oral tablet (20 sources) Serotonin-3 Receptor Antagonist Start: 024 take 1 tablet by mouth every eight hours as needed ondansetron orally disintegrating (ZOFRAN ODT) 4 mg disintegrating tablet Take 1 tablet by mouth every 8 hours as needed for nausea/vomiting. 9 tablet 05/24/2023 Active Start: 10-02-2020 End: 07-20-2021 take 4 mg by mouth every eight hours Ondansetron Discontinued 4 MG PO Q8H October 02, 2020 12:00am July 20, 2021 10:01am Start: 01-27-2020 End: 08-12-2020 take 4 mg by mouth every six hours as needed Ondansetron Discontinued 4 MG PO EVERY 6 HOURS NEEDED January 27, 2020 7:41am August 12, 2020 11:43am Comment on above: Take 1 tablet by lo th every 8 hours as needed for nausea/vomiting. pantoprazole 40 mg delayed release oral tablet (20 sources) Proton Pump Inhibitor Start: 07-15-19 End: 04-14-19 24 take 1 tablet by mouth once daily pantoprazole DR (PROTONIX) 40 mg tablet Take 1 tablet by mouth once daily. 30 tablet 01/30/2023 Active Start: 04-09-2018 End: 04-26-2019 take 40 mg by mouth once daily Pantoprazole Discontinu ed 40 MG PO DAILY April 09, 2018 1:00am April 26, 2019 4:00pm Protonix Quantit y: 0 Refills: 0 Ordered: 10-Aug-2022 HobbsJoesph morgan Generic Substitution Allowed Comment on above: Take 1 tablet by lo once daily. phentermine hydrochloride 37.5 mg oral tablet (11 sources) Sympathomimetic Amine Anorectic Start: 02-25-20 End: 05-25-19 24 take 1 tablet by mouth once daily Phentermine HCl 37.5 mg tablet Indications: Obesity (BMI 30-39.9) Take 1 tablet by mouth once daily for 30 days. Do not start before April 25, 2023. 30 tablet 0 04/25/2023 05/25/2023 Active Start: 04-12-2022 End: 05-12-2022 take 1 tablet by mouth once daily Phentermine HCl 37.5 mg tablet Indications: Obesity (BMI 30-39.9) Take 1 tablet by mouth once daily for 30 days. 30 tablet 0 04/12/2022 05/12/2022 Active Start: 02-09-2022 End: 04-10-2022 take 1 tablet by mouth once daily Phentermine HCl 37.5 mg tablet Indications: Obesity (BMI 30-39.9) Take 1 tablet by mouth once daily for 30 days. 30 tablet 0 03/11/2022 04/10/2022 Active Comment on above: Take 1 tablet by lo once daily for 30 days. Take 1 tablet by lo once daily for 30 days. Do not start before April 25, 2023. Take 1 tablet by lo once daily for 30 days. Do not start before March 26, 2023. polymyxin b 13181 unt/ml / trimethoprim 1 mg/ml ophthalmic solution (1 source) Dihydrofolate Reductase Inhibitor Antibacterial, Polymyxin-class Antibacterial Start: 08-21-19 End: 08-28-19 take 1 drop(s) into the eye(s) twice daily polymyxin B-trimethoprim (POLYTRIM) 10,000 unit- 1 mg/mL ophthalmic solution Use 1 drop in both eyes two times a day for 7 days. 10 mL 08/20/2024 08/27/2024 Active predniSONE 20 mg oral tablet (20 sources) Start: 06-10-19 End: 06-15-19 take 1 tablet by mouth twice daily predniSONE (DELTASONE) 20 mg tablet Indications: Mild intermittent asthma with acute exacerbation (HCC) Take 1 tablet by mouth two times a day for 5 days. 10 tablet 06/09/2024 06/14/2024 Active Start: 03-26-2024 End: 03-30-2024 take 2 tablets by mouth once daily at mealtime predniSONE (DELTASONE) 20 mg tablet Take 2 tablets by mouth once daily for 4 days. Take daily with food. 8 tablet 03/26/2024 03/30/2024 Active Start: 07-22-2023 End: 07-31-2023 predniSONE (DELTASONE) 10 mg tablet Indications: Muscle pain Take 4 tabs daily for 3 days, then 2 tabs daily for 3 days, then 1 tab daily for 3 days with food. 21 tablet 0 07/22/2023 07/31/2023 Active Start: 11-29-2022 End: 12-08-2022 predniSONE (DELTASONE) 10 mg tablet Indications: Mild intermittent asthmatic bronchitis without complication Take 4 tabs daily for 3 days, then 2 tabs daily for 3 days, then 1 tab daily for 3 days with food. 21 tablet 0 11/29/2022 12/08/2022 Active Start: 12-24-2021 End: 01-05-2022 predniSONE (DELTASONE) 10 mg tablet Indications: Sciatica, right side Take 6 tabs for 3 days, then 4 tabs for 3 days, then 2 tabs for 3 days then 1 tab for 3 days with food. 39 tablet 0 12/24/2021 01/05/2022 Active Start: 09-23-2021 End: 08-05-2022 take 10 mg by mouth twice daily Prednisone Discontinue d 10 MG PO TWICE A DAY September 23, 2021 12:00am August 05, 2022 11:30am Start: 06-09-2021 predniSONE (DE LTASONE) 10 mg tablet Indications: Cough Take 6 tabs by mouth for 3 days then 4 tabs a day for 3 days then 2 tabs a day for 3 days and then 1 tab a day for 3 days. 39 tablet 0 06/09/2021 Active Start: 06-01-2021 End: 06-09-2021 take 3 tablets by mouth once daily predniSONE (DELTASONE) 20 mg tablet Take 3 Tablets (60mg) by mouth once a day for 5 days 0 06/01/2021 06/09/2021 Discontinued Start: 01-02-2018 End: 01-08-2018 take 40 mg by mouth once daily at mealtime Prednisone Discontinued 40 MG PO DAILY January 02, 2018 12:00am January 08, 2018 12:11am With food Comment on above: Take 6 tabs by mouth for 3 days then 4 tabs a day for 3 days then 2 tabs a day for 3 days and then 1 tab a day for 3 days. Take 3 Tablets (60mg ) by mouth once a day for 5 days Take 6 tabs for 3 da ys, then 4 tabs for 3 days, then 2 tabs for 3 days then 1 tab for 3 days with food. Take 4 tabs daily fo r 3 days, then 2 tabs daily for 3 days, then 1 tab daily for 3 days with food. propranolol hydrochloride 10 mg oral tablet (17 sources) beta-Adrenergic Nik Start: 09-08-19 take 1 tablet by mouth every eight hours as needed propranolol (INDERAL) 10 mg tablet Take 10 mg by mouth three times a day as needed. 09/08/2023 Active sucralfate 1000 mg oral tablet (5 sources) Aluminum Complex Start: 05-05-19 End: 06-09-19 24 take 1 tablet by mouth twice daily Sucralfate (Carafate) 1 gram tablet Active 1 GM PO TWICE A DAY 60 June 10, 2023 12:00am 24 hr venlafaxine 75 mg extended release oral capsule (20 sources) Serotonin and Norepinephrine Reuptake Inhibitor Start: 06-09-19 take 75 mg by mouth once daily Venlafaxine Active 75 MG PO DAILY June 09, 2023 12:00am Start: 01-30-2023 take 1 capsule by [facility] once daily venlafaxine ER (EFFEXOR XR) 37.5 mg 24 hr capsule Take 1 capsule by mouth once daily. 30 capsule 01/30/2023 Active Start: 01-26-2023 End: 05-05-2023 take 75 mg by mouth at bedtime Venlafaxine Discontinue d 75 MG PO AT BEDTIME January 26, 2023 1:00am May 05, 2023 11:43am Start: 11-12-2022 End: 01-28-2023 take 1 capsule by mouth once daily venlafaxine ER (EFFEXOR XR) 37.5 mg 24 hr capsule Take 1 capsule by mouth once daily. 30 capsule 11/12/2022 01/28/2023 Discontinued Comment on above: Take 1 capsule by [facility] once daily. Completed/Discontinued Medications Medication Drug Class(es) Dates Sig (Normalized) Sig (Original) acetaminophen 325 mg / HYDROcodone bitartrate 5 mg oral tablet (5 sources) Opioid Agonist Start: 01-27-2020 End: 01-30-2020 take 1 tablet by mouth every six hours as needed Hydrocodone-Acetam inophen Discontinued 1 TABLET PO EVERY 6 HOURS NEEDED 10 January 27, 2020 January 30, 2020 1:02am azithromycin 250 mg oral tablet (12 sources) Macrolide Antimicrobial Start: 06-01-2021 take 2 tablets by mouth once daily, then take 1 tablet by mouth once daily azithromycin (ZITHROMAX) 250 mg tablet TAKE 2 TABLETS BY MOUTH on the first day, then ONE TABLET once daily for FOUR days 0 06/01/2021 Active Start: 08-12-2020 End: 01-06-2021 Azithromycin Discontinued 0 PO .COMPLEX 6 August 12, 2020 12:00am January 06, 2021 10:19am take 500 mg today (day 1), then 250 mg for 4 days (days 2-5) PO Comment on above: TAKE 2 TABLETS BY [facility] on the first day, then ONE TABLET once daily for FOUR days benzocaine 15 mg / menthol 3.6 mg oral lozenge (4 sources) Standardized Chemical Allergen Start: End: Benzocaine-Menthol (Cepacol Sore Throat (Josue-Men)) 15-3.6 mg lozenge Discontinued 1 LOZENGE MUCOUS MEM Q2H August 05, 2022 12:00am January 26, 2023 10:59pm ciprofloxacin 500 mg oral tablet (4 sources) Quinolone Antimicrobial Start: End: take 1 tablet by mouth twice daily Ciprofloxacin Hcl (Cipro) 500 mg tablet Discontinued 500 MG PO TWICE A DAY August 18, 2022 12:00am January 26, 2023 10:59pm cyclobenzaprine hydrochloride 5 mg oral tablet (20 sources) Muscle Relaxant Start: 023 End: take 1-2 tablets by mouth three times daily cyclobenzaprine (FLEXERIL) 5 mg tablet Take 1-2 tablets by mouth three times daily. 30 tablet 11/03/2022 02/24/2023 Discontinued Start: 03-11-2022 End: 11-01-2022 take 1-2 tablets by mouth three times daily cyclobenzaprine (FLEXERIL) 5 mg tablet Take 1-2 tablets by mouth three times daily. 30 tablet 0 11/03/2022 Active Start: 01-06-2021 End: 01-11-2021 take 10 mg by mouth three times daily Cyclobenzaprine Discontinued 10 MG PO THREE TIMES A DAY 31 07January 06, 2021 12:00am January 11, 2021 12:01am Comment on above: Take 1-2 tablets by mouth three times daily. dexamethasone 4 mg oral tablet (6 sources) Corticosteroid Start: 03-19-19 End: 07-21-19 take 1 tablet by mouth once daily Dexamethasone (Decadron) 4 mg tablet Discontinued 4 MG PO DAILY March 19, 2021 1:00am July 20, 2021 10:01am Comment on above: Take by mouth. docusate sodium 100 mg oral capsule (5 sources) Start: 06-19-19 End: 11-08-19 take 100 mg by mouth twice daily as needed Docusate Sodium Discontinued 100 MG PO TWICE DAILY NEEDED June 19, 2019 12:00am November 08, 2019 11:20am to keep stools soft doxycycline monohydrate 100 mg oral capsule (5 sources) Tetracycline-class Drug Start: 08-11-19 End: 04-26-19 take 100 mg by mouth twice daily Doxycycline Monohydrate Discontinued 100 MG PO TWICE A DAY August 10, 2018 12:00am April 26, 2019 4:00pm escitalopram 5 mg oral tablet (6 sources) Serotonin Reuptake Inhibitor Start: 09-08-19 End: 03-11-20 take 1 tablet by mouth once daily escitalopram oxalate (LEXAPRO) 5 mg tablet Indications: Anxiety and depression Take 1 tablet by mouth once daily. 30 tablet 11 09/07/2021 03/11/2022 Discontinued (Discontinued by Patient) Comment on above: Take 1 tablet by lo once daily. FLUoxetine 10 mg oral capsule (20 sources) Serotonin Reuptake Inhibitor Start: 11-13-19 End: 02-25-20 FLUoxetine (PROZAC) 10 mg capsule Take once daily for 7 days then every other day until gone 10 capsule 11/12/2022 02/24/2023 Discontinued Start: 01-18-2022 End: 07-12-2023 take 1 capsule by mouth once daily, then take 1 capsule by mouth once daily, then take 2 capsules by mouth once daily FLUoxetine (PROZAC) 20 mg capsule Take 1 capsule by mouth once daily. Take 1 pill daily for 14 days and then increase to 2 pills a day 90 capsule 3 07/12/2022 11/12/2022 Discontinued PROzac Quantity: 0 Refills: 0 Ordered: 10-Aug-2022 Joesph Hobbs Generic Substitution Allowed Comment on above: Take 1 pill daily fo r 14 days and then increase to 2 pills a day Take 1 capsule by mo [facility] once daily. Take 1 pill daily for 14 days and then increase to 2 pills a day Take once daily for 7 days then every other day until gone 30 actuat fluticasone furoate 0.1 mg/actuat / vilanterol 0.025 mg/actuat dry powder inhaler (11 sources) Corticosteroid, beta2-Adrenergic Agonist Start: 07-15-19 End: 03-11-20 22 take 1 dose by inhalation once daily fluticasone-vilanter ol (BREO ELLIPTA) 100-25 mcg/dose inhaler Inhale 1 Inhalation as instructed once daily. 1 Each 5 07/14/2021 03/11/2022 Discontinued (Discontinued by Patient) Comment on above: Inhale 1 Inhalation as instructed once daily. ibuprofen 600 mg oral tablet (20 sources) Nonsteroidal Anti-inflammatory Drug Start: 08-27-19 End: 10-14-19 24 take 1 tablet by mouth every six hours as needed ibuprofen (MOTRIN) 600 mg tablet Take 1 tablet by mouth every 6 hours as needed for pain. 30 tablet 1 11/02/2022 10/14/2023 Discontinued Start: 06-19-2019 End: 11-08-2019 take 600 mg by mouth every six hours Ibuprofen Discontinued 600 MG PO EVERY 6 HOURS 60 June 19, 2019 12:00am November 08, 2019 11:20am Comment on above: Take 1 tablet by lo th every 6 hours as needed for pain. 2 ml ketorolac tromethamine 30 mg/ml injection (1 source) Nonsteroidal Anti-inflammatory Drug, Cyclooxygenase Inhibitor Start: 12-24-2021 End: 12-24-2021 keTORolac 60 mg injection (TORADOL) Start: 12-24-2021 End: 12-24-2021 keTORolac 60 mg injection (T ORADOL) LORazepam 0.5 mg oral tablet (20 sources) Benzodiazepine Start: 01-26-2023 End: 05-05-2023 take 0.5 mg by mouth every eight hours Lorazepam Discontinued 0.5 MG PO Q8H January 26, 2023 1:00am May 05, 2023 11:43am Start: 05-27-2022 End: 02-03-2023 take 1 tablet by mouth three times daily as needed for anxiety LORazepam (ATIVAN) 0.5 mg Indications: Panic attacks Take 1 tablet by mouth three times daily as needed (anxiety) for up to 90 days. 15 tablet 11/05/2022 02/03/2023 Comment on above: Take 1 tablet by lo three times daily as needed (anxiety) for up to 90 days. methylPREDNISolone 4 mg oral tablet (15 sources) Corticosteroid Start: 2021 End: 2022 take 1 tablet by mouth once daily Methylprednisolone (Medrol (Calvin)) 4 mg tablets,dose pack Discontinued 4 MG PO DAILY August 03, 2021 12:00am August 05, 2022 11:29am take tablets by mouth as directed Start: 01-06-2021 End: 01-11-2021 take 1 tablet by mouth once Methylprednisolone (Medrol (Calvin)) 4 mg tablets,dose pack Discontinued 4 MG PO per package directions 01 08January 06, 2021 12:00am January 11, 2021 12:01am Start: 08-12-2020 End: 2020 take 1 tablet by mouth once Methylprednisolone (Medrol (Calvin)) 4 mg tablets,dose pack Discontinued 4 MG PO per package directions 21 August 12, 2020 12:00am 2020 12:01am metroNIDAZOLE 500 mg oral tablet (4 sources) Nitroimidazole Antimicrobial Start: 09-01-2022 End: 09-08-2022 take 500 mg by mouth every twelve hours Metronidazole Discontinued 500 MG PO Q12H 14 7 September 01, 2022 12:00am September 08, 2022 12:03am naproxen 500 mg oral tablet (13 sources) Nonsteroidal Anti-inflammatory Drug Start: 10-09-2022 End: 01-26-2023 take 500 mg by mouth twice daily Naproxen Discontinued 500 MG PO TWICE A DAY October 09, 2022 3:23am January 26, 2023 10:59pm Start: 03-11-2022 End: 06-23-2022 take 1 tablet by mouth every twelve hours as needed naproxen (NAPROSYN) 500 mg tablet Take 1 tablet by mouth twice daily as needed (for pain/inflammation). Take with food. 30 tablet 0 03/11/2022 06/23/2022 Discontinued (Other) Comment on above: Take 1 tablet by lo twice daily as needed (for pain/inflammation). Take with food. oxyCODONE hydrochloride 5 mg oral tablet (5 sources) Opioid Agonist Start: End: take 5 mg by mouth every six hours as needed Oxycodone Discontinued 5 MG PO EVERY 6 HOURS NEEDED 06 10June 19, 2019 June 26, 2019 12:02am potassium chloride 20 meq extended release oral tablet (8 sources) Start: End: take 20 mEq by mouth twice daily Potassium Chloride Discontinued 20 MEQ PO TWICE A DAY 7 May 05, 2023 1:00am June 09, 2023 11:06am Start: 10-02-2020 End: 07-20-2021 take 20 mEq by mouth twice daily Potassium Chloride Discontinued 20 MEQ PO TWICE A DAY October 02, 2020 12:00am July 20, 2021 10:01am Prenat.Vits,Jewel,Elf-Tocg-Ifp ic (5 sources) Start: 04-26-2019 End: 11-08-2019 take 1 tablet by mouth once daily Prenat.Vits,Jewel,Caz-Hwbi-Bbpob Discontinued 1 TABLET PO DAILY April 26, 2019 12:00am November 08, 2019 10:20am Start: 04-26-2019 End: 11-08-2019 take 1 tablet by mouth once daily Prenat.Vits,Jewel,Jnp-Afhr-Rkeqb Discontin ued 1 TABLET PO DAILY April 26, 2019 1:00am November 08, 2019 11:20am promethazine hydrochloride 25 mg oral tablet (5 sources) Phenothiazine Start: 01-22-2019 End: 04-26-2019 take 25 mg by mouth every six hours as needed Promethazine Discontinued 25 MG PO EVERY 6 HOURS NEEDED January 22, 2019 1:00am April 26, 2019 4:00pm traZODone hydrochloride 50 mg oral tablet (4 sources) Serotonin Reuptake Inhibitor Start: 01-26-2023 End: 05-05-2023 take 50 mg by mouth at bedtime Trazodone Discontinued 50 MG PO AT BEDTIME January 26, 2023 1:00am May 05, 2023 11:43am Problems Active Problems Problem Classification Problem Date Documented Da te Episodic/Chronic Acute bronchitis (5 sources) Acute bronchitis; Translations: [Acute bronchitis, unspecified] 08-12-2020 Episodic Administrative/social admission (1 source) Worried well; Translations: [Person with feared health complaint in whom no diagnosis is made] 08-26-2023 Episodic Anxiety disorders (20 sources) Mixed anxiety and depressive disorder; Translations: [Anxiety disorder, unspecified] Onset: Chronic Asthma (7 sources) Exacerbation of asthma; Translations: [Unspecified asthma with (acute) exacerbation] 11-29-2022 Chronic Diseases of white blood cells (4 sources) Leukocytosis; Translations: [Elevated white blood cell count, unspecified] 01-27-2023 Chronic Disorders of teeth and jaw (5 sources) Dental caries; Translations: [Dental caries, unspecified] 10-17-2022 Episodic E Codes: Natural/environment (5 sources) Insect bite - wound; Translations: [Bitten or stung by nonvenomous insect and other nonvenomous arthropods, initial encounter] 01-22-2019 Episodic Fluid and electrolyte disorders (3 sources) Hypokalemia; Translations: [Hypokalemia] 05-05-2023 Episodic Genitourinary symptoms and ill-defined conditions (7 sources) Dysuria; Translations: [Frequency of micturition] Onset: 3 Episodic Immunizations and screening for infectious disease (9 sources) Patient encounter status; Translations: [Encounter for immunization] Episodic Inflammation; infection of eye (except that caused by tuberculosis or sexually transmitteddisease) (1 source) Acute conjunctivitis of bilateral eyes; Translations: [Unspecified acute conjunctivitis, bilateral] 08-20-2024 Episodic Influenza (5 sources) Influenza; Translations: [Influenza due to unidentified influenza virus with other respiratory manifestations] 04-28-2019 Episodic Mood disorders (1 source) Mood disorders; Translations: [Depression, unspecified] Onset: Nonspecific chest pain (10 sources) Chest pain; Translations: [Chest pain, unspecified] 01-22-2019 Episodic Other circulatory disease (1 source) Elevated blood-pressure reading without diagnosis of hypertension; Translations: [Elevated blood-pressure reading, without diagnosis of hypertension] Episodic Other circulatory disease (1 source) Wheeze - rhonchi; Translations: [Other specified symptoms and signs involving the circulatory and respiratory systems] 11-29-2022 Episodic Other connective tissue disease (1 source) Muscle pain; Translations: [Myalgia, unspecified site] 07-22-2023 Episodic Other connective tissue disease (3 sources) Pain of left heel; Translations: [Pain in left foot] 09-29-2023 Episodic Other connective tissue disease (2 sources) Pain in left foot; Translations: [Pain in left foot] 10-14-2023 Episodic Other connective tissue disease (1 source) Plantar fasciitis; Translations: [Plantar fascial fibromatosis] 12-05-2023 Episodic Other connective tissue disease (1 source) Pain of toe of left foot; Translations: [Pain in left toe(s)] 07-13-2021 Episodic Other connective tissue disease (4 sources) Swelling of left upper limb; Translations: [Other specified soft tissue disorders] 01-14-2024 Episodic Other connective tissue disease (1 source) Pain in left arm; Translations: [Pain in left arm] Onset: 5 Episodic Other female genital disorders (1 source) Deep pain on intercourse; Translations: [Deep dyspareunia] Chronic Other female genital disorders (2 sources) Abnormal uterine bleeding; Translations: [Abnormal uterine and vaginal bleeding, unspecified] Chronic Other gastrointestinal disorders (1 source) Dysphagia; Translations: [Dysphagia, unspecified] Episodic Other infections; including parasitic (5 sources) H/O: viral illness; Translations: [Personal history of other infectious and parasitic diseases] 10-02-2020 Episodic Other lower respiratory disease (8 sources) Dyspnea; Translations: [Shortness of breath] Episodic Other nervous system disorders (20 sources) Carpal tunnel syndrome of right wrist; Translations: [Carpal tunnel syndrome, right upper limb] Onset: 7 09-16-2016 Chronic Other nervous system disorders (1 source) Carpal tunnel syndrome; Translations: [Carpal tunnel syndrome, left upper limb] 09-23-2021 Chronic Other nervous system disorders (3 sources) Carpal tunnel syndrome of left wrist; Translations: [Carpal tunnel syndrome, left upper limb] 09-23-2021 Chronic Other nervous system disorders (1 source) Carpal tunnel syndrome, left upper limb; Translations: [Carpal tunnel syndrome, left upper limb] Onset: 4 Chronic Other nervous system disorders (5 sources) Paresthesia of left upper limb; Translations: [Paresthesia of skin] 07-20-2021 Episodic Other nervous system disorders (1 source) Paresthesia of skin; Translations: [Disturbance of skin sensation] Episodic Other non-traumatic joint disorders (3 sources) Pain in left shoulder; Translations: [Pain in joint, shoulder region] Onset: 5 03-26-2024 Episodic Other nutritional; endocrine; and metabolic disorders (20 sources) Body mass index 40+ - severely obese; Translations: [Morbid (severe) obesity due to excess calories] Onset: 4 03-09-2021 Chronic Other nutritional; endocrine; and metabolic disorders (8 sources) Body mass index 30+ - obesity; Translations: [Obesity, unspecified] Chronic Other nutritional; endocrine; and metabolic disorders (2 sources) Severe obesity; Translations: [Morbid (severe) obesity due to excess calories] Chronic Other screening for suspected conditions (not mental disorders or infectious disease) (1 source) Cancer cervix screening status; Translations: [Encounter for screening for malignant neoplasm of cervix] Episodic Other skin disorders (2 sources) Soft tissue swelling; Translations: [Localized swelling, mass and lump, trunk] 01-17-2024 Episodic Other skin disorders (1 source) Telogen effluvium; Translations: [Telogen effluvium] Onset: 5 Episodic Other upper respiratory infections (17 sources) Upper respiratory infection; Translations: [Acute upper respiratory infection, unspecified] Episodic Ovarian cyst (2 sources) Cyst of right ovary; Translations: [Unspecified ovarian cyst, right side] 05-23-2023 Episodic Residual codes; unclassified (5 sources) Chill; Translations: [Chills (without fever)] 03-19-2021 Episodic Residual codes; unclassified (3 sources) Pain; Translations: [Pain, unspecified] 07-22-2023 Episodic Sexually transmitted infections (not HIV or hepatitis) (2 sources) Human papilloma virus deoxyribonucleic acid test positive, high risk on vaginal specimen; Translations: [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] Episodic Sprains and strains (5 sources) Low back strain; Translations: [Strain of muscle, fascia and tendon of lower back, initial encounter] 01-06-2021 Episodic Substance-related disorders (3 sources) Smoker; Translations: [Nicotine dependence, unspecified, uncomplicated] Onset: 5 06-09-2021 Chronic Superficial injury; contusion (5 sources) Contusion of lower back; Translations: [Contusion of lower back and pelvis, initial encounter] 01-06-2021 Episodic Unclassified (2 sources) PAINFUL URINATION 08-10-2022 Comment on above: PAINFUL URINATION Urinary tract infections (9 sources) Urinary tract infectious disease; Translations: [Urinary tract infection, site not specified] 01-27-2020 Episodic Viral infection (6 sources) Viral disease; Translations: [Unspecified viral infection] 03-23-2021 Episodic Viral infection (3 sources) Disease caused by 2019-nCoV 03-23-2021 Comment on above: COVID + FAST HR SOB Past or Other Problems Problem Classification Problem Date Documented Date Episodic/Chronic Abdominal pain (20 sources) Abdominal pain; Translations: [Unspecified abdominal pain] Onset: 10-28-2011 Resolved: 08-15-2012 Episodic Contraceptive and procreative management (20 sources) Subcutaneous contraceptive implant present; Translations: [Presence of (intrauterine) contraceptive device] Onset: 08-04-2010 Resolved: 08-15-2012 05-23-2023 Episodic Headache; including migraine (20 sources) Headache; Translations: [Headache] Onset: 04-20-2010 Resolved: 08-15-2012 08-15-2012 Episodic Nausea and vomiting (20 sources) Nausea and vomiting; Translations: [Nausea with vomiting, unspecified] Onset: 04-20-2010 Resolved: 08-15-2012 08-30-2014 Episodic Other complications of (20 sources) Obesity; Translations: [Obesity complicating , unspecified trimester] Onset: 11-16-2018 Resolved: 08-09-2019 08-09-2019 Chronic Other complications of (20 sources) Supervision of other high risk pregnancies, unspecified trimester; Translations: [Supervision of other high-risk ] Onset: 12-01-2009 Resolved: 06-05-2010 06-05-2010 Episodic Other complications of (20 sources) Maternal tobacco use; Translations: [Smoking (tobacco) complicating , unspecified trimester] Onset: 03-12-2013 Resolved: 08-09-2019 08-09-2019 Episodic Other connective tissue disease (2 sources) Other specified soft tissue disorders; Translations: [Left arm swelling] Onset: 01-17-2024 Episodic Other connective tissue disease (2 sources) Pain in left foot; Translations: [Pain of left heel] Onset: 10-14-2023 Episodic Other lower respiratory disease (9 sources) Cough; Translations: [Cough] Onset: 01-17-2024 Episodic Other lower respiratory disease (2 sources) Shortness of breath; Translations: [SOB (shortness of breath)] Onset: 01-17-2024 Episodic Other non-traumatic joint disorders (20 sources) Pain in right knee; Translations: [Pain in joint, lower leg] Onset: 01-31-2015 01-31-2015 Episodic Other non-traumatic joint disorders (20 sources) Pain in forearm; Translations: [Pain in unspecified wrist] Onset: 09-12-2008 Resolved: 08-15-2012 08-15-2012 Episodic Other skin disorders (1 source) Localized swelling, mass and lump, trunk; Translations: [Soft tissue swelling of chest wall] Onset: 01-17-2024 Episodic Residual codes; unclassified (20 sources) FH: Congenital heart disease; Translations: [Family history of other congenital malformations, deformations and chromosomal abnormalities] Onset: 03-12-2013 Resolved: 12-19-2013 03-09-2021 Episodic Residual codes; unclassified (1 source) Other specified postprocedural states; Translations: [History of carpal tunnel surgery of left wrist] Onset: 01-17-2024 Episodic Residual codes; unclassified (1 source) Procedure and treatment not carried out due to patient leaving prior to being seen by health care provider; Translations: [Procedure and treatment not carried out due to patient leaving prior to being seen by health care provider] Onset: 09-19-2023 Episodic Spondylosis; intervertebral disc disorders; other back problems (20 sources) Chronic low back pain; Translations: [Lumbago with sciatica, right side] Onset: 11-11-2015 11-11-2015 Episodic Results Test Name Value Interpretation Reference Range Facility .Auto Diffon 07-22-2024 Basophil, Absolute 0.1 10 3/mcL Normal 0.0-0.3 [facility] Comment on above: Performed By: #### B MP, ALC, ADIFF, ANEU, MDW, TROPHS, GFR, CBC #### [address] [address] Basophils/100 WBC (Bld) 0.4 % Normal 0.0-2.5 [facility] Comment on above: Performed By: #### B MP, ALC, ADIFF, ANEU, MDW, TROPHS, GFR, CBC #### [address] [address] Eosinophil, Absolute 0.1 10 3/mcL Normal 0.0-0.7 [facility] Comment on above: Performed By: #### B MP, ALC, ADIFF, ANEU, MDW, TROPHS, GFR, CBC #### [address] [address] Eosinophils/100 WBC (Bld) 0.8 % Normal 0.0-6.0 [facility] Comment on above: Performed By: #### B MP, ALC, ADIFF, ANEU, MDW, TROPHS, GFR, CBC #### [address] [address] Lymphocyte, Absolute 5.3 10 3/mcL High 0.9-4.3 [facility] Comment on above: Performed By: #### B MP, ALC, ADIFF, ANEU, MDW, TROPHS, GFR, CBC #### [address] [address] Lymphocytes/100 WBC (Bld) 31.8 % Normal 20.0-40.0 [facility] Comment on above: Performed By: #### B MP, ALC, ADIFF, ANEU, MDW, TROPHS, GFR, CBC #### [address] [address] Monocyte, Absolute 0.7 10 3/mcL Normal 0.1-1.4 [facility] Comment on above: Performed By: #### B MP, ALC, ADIFF, ANEU, MDW, TROPHS, GFR, CBC #### [address] [address] Monocytes/100 WBC (Bld) 4.1 % Normal 2.0-13.0 [facility] Comment on above: Performed By: #### B MP, ALC, ADIFF, ANEU, MDW, TROPHS, GFR, CBC #### [address] [address] Neutrophils/100 WBC (Bld) 62.9 % Normal 50.0-75.0 [facility] Comment on above: Performed By: #### B MP, ALC, ADIFF, ANEU, MDW, TROPHS, GFR, CBC #### [address] [address] .GFRon 07-22-2024 Estimated Glomerular Filtration Rate 103 ml/min/1.73sqm Normal [facility] Comment on above: Result Comment: Stages of Chronic Kidney Disease (CKD) Stage Description eGFR(ml/min/1.73 sq.m.) CKD 1 Normal kidney function or >=90 normal kindney function with possible kidney damage (ex. Proteinuria) CKD 2 Kidney damage with mild loss 60-89 of kidney function CKD 3a Mild to moderate loss of kidney 45-59 function CKD 3b Moderate to severe loss of 30-44 of kindey function CKD 4 Severe loss of kidney function 15-29 CKD 5 Kidney failure <15 Note: (go live 2024) the eGFR calculation was updated to the 2020 CKD-EPI creatinine equation without a race factor to calculate the eGFR results. Performed By: #### U DRUG, UAMIC, UA, PREGU #### [address] [address] .MDWon 07-22-2024 Monocyte Distribution Width 20.09 High 0.00-20.00 [facility] Comment on above: Result Comment: For adults in ED, MDW>20.0 may be associated with a higher risk of sepsis during the first 12hrs of hospital admission Performed By: #### B MP, ALC, ADIFF, ANEU, MDW, TROPHS, GFR, CBC #### [address] [address] .NEUABSon 07-22-2024 Neutrophil, Absolute 10.5 10 3/mcL High 2.3-8.1 [facility] Comment on above: Performed By: #### B MP, ALC, ADIFF, ANEU, MDW, TROPHS, GFR, CBC #### [place] [id number] Zachery 07-22-2024 Ethanol Level <[address] [facility] Comment on above: Performed By: #### U DRUG, UAMIC, UA, PREGU #### [address] [address] BMPon 07-22-2024 BUN/Creatinine Ratio 19 ratio Normal 7-27 [facility] Comment on above: Performed By: #### U DRUG, UAMIC, UA, PREGU #### [address] [address] Calcium [Mass/Vol] 9.3 mg/dL Normal 8.4-10.[address] [facility] Comment on above: Performed By: #### U DRUG, UAMIC, UA, PREGU #### [address] [address] Chloride [Moles/Vol] 101 mmol/L Normal 98-107 [facility] Comment on above: Performed By: #### U DRUG, UAMIC, UA, PREGU #### [address] [address] CO2 [Moles/Vol] 22 mmol/L Normal 22-29 [facility] Comment on above: Performed By: #### U DRUG, UAMIC, UA, PREGU #### [address] [address] Creatinine [Mass/Vol] 0.78 mg/dL Normal 0.51-0.95 [facility] Comment on above: Performed By: #### U DRUG, UAMIC, UA, PREGU #### [address] [address] Electrolyte Balance 15.0 mEq/L Normal 4.0-15.0 [facility] Comment on above: Performed By: #### U DRUG, UAMIC, UA, PREGU #### [address] [address] Glucose [Mass/Vol] 102 mg/dL Normal 70-[address] [facility] Comment on above: Performed By: #### U DRUG, UAMIC, UA, PREGU #### [address] [address] Potassium [Moles/Vol] 3.5 mmol/L Normal 3.5-5.1 [facility] Comment on above: Performed By: #### U DRUG, UAMIC, UA, PREGU #### [address] [address] Sodium [Moles/Vol] 138 mmol/L Normal 136-[address] [facility] Comment on above: Performed By: #### U DRUG, UAMIC, UA, PREGU #### [address] [address] Urea nitrogen [Mass/Vol] 15 mg/dL Normal 7-18 [facility] Comment on above: Performed By: #### U DRUG, UAMIC, UA, PREGU #### [address] [address] CBCon 07-22-2024 Erythrocyte distribution width (RBC) [Ratio] 13.4 % Normal 11.5-15.5 [facility] Comment on above: Performed By: #### B MP, ALC, ADIFF, ANEU, MDW, TROPHS, GFR, CBC #### [address] [address] Hematocrit (Bld) [Volume fraction] 39.3 % Normal 34.0-46.0 [facility] Comment on above: Performed By: #### B MP, ALC, ADIFF, ANEU, MDW, TROPHS, GFR, CBC #### [place] [address] Hgb 13.4 G/dL Normal 12.0-16.0 [facility] Comment on above: Performed By: #### B MP, ALC, ADIFF, ANEU, MDW, TROPHS, GFR, CBC #### [place] [address] MCH (RBC) [Entitic mass] 28.6 pg Normal 27.0-33.0 [facility] Comment on above: Performed By: #### B MP, ALC, ADIFF, ANEU, MDW, TROPHS, GFR, CBC #### [address] [address] MCHC 34.1 G/dL Normal 32.0-36.0 [facility] Comment on above: Performed By: #### B MP, ALC, ADIFF, ANEU, MDW, TROPHS, GFR, CBC #### [address] [address] MCV (RBC) [Entitic vol] 83.7 fL Normal 80.0-99.0 [facility] Comment on above: Performed By: #### B MP, ALC, ADIFF, ANEU, MDW, TROPHS, GFR, CBC #### [place] [id number] Platelet 398 10 3/mcL Normal 150-450 [facility] Comment on above: Performed By: #### B MP, ALC, ADIFF, ANEU, MDW, TROPHS, GFR, CBC #### [address] [address] Platelet mean volume (Bld) [Entitic vol] 6.9 fL Normal 6.6-10.5 [facility] Comment on above: Performed By: #### B MP, ALC, ADIFF, ANEU, MDW, TROPHS, GFR, CBC #### [place] [address] RBC 4.69 10 6/mcL Normal 4.10-5.30 [facility] Comment on above: Performed By: #### B MP, ALC, ADIFF, ANEU, MDW, TROPHS, GFR, CBC #### [place] [id number] [place] [address] WBC 16.7 10 3/mcL High 4.5-10.8 [facility] Comment on above: Performed By: #### B MP, ALC, ADIFF, ANEU, MDW, TROPHS, GFR, CBC #### [address] [address] [address] HEAD OR BRAIN W/O CONTRAS Ton 07-22-2024 CT HEAD OR BRAIN W/O CONTRAST ORIGINAL EXAMINATION: CT OF THE HEAD WITHOUT CONTRAST 07/22/2024 3:29 am TECHNIQUE: CT of the head was performed without the administration of intravenous contrast. Automated exposure control, iterative reconstruction, and/or weight based adjustment of the mA/kV was utilized to reduce the radiation dose to as low as reasonably achievable. COMPARISON: None. HISTORY: ORDERING SYSTEM PROVIDED HISTORY: Reason for Exam: AMS. Pt appears to be on some kind of drug. unable to hold still. best scan possible Altered mental status FINDINGS: BRAIN/VENTRICLES: There is no acute intracranial hemorrhage, mass effect or midline shift. No abnormal extra-axial fluid collection. The box-white differentiation is maintained without evidence of an acute infarct. There is no evidence of hydrocephalus. ORBITS: The visualized portion of the orbits demonstrate no acute abnormality. SINUSES: The visualized paranasal sinuses and mastoid air cells demonstrate no acute abnormality. SOFT TISSUES/SKULL: No acute abnormality of the visualized skull or soft tissues. IMPRESSION: No acute intracranial abnormality. Interpreted by: Tien John, MD Preliminary Report By: Tien Macias MD Electronically signed By Tien Macias MD Dictated Date: 07/22/2024 3:35:01 AM Prelim Date: 07/22/2024 3:36:23 AM Sign Date: 07/22/2024 3:36:23 AM Ordering Provider: MIGUEL A LERMA Normal [facility] CVFLURGerardo 07-22-2024 FLU A PCR Negative Normal Negative [facility] Comment on above: Performed By: #### C VFLURV #### [place] [address] FLU B PCR Negative Normal Negative [facility] Comment on above: Performed By: #### C VFLURV #### [place] [address] RSV PCR Negative Normal Negative [facility] Comment on above: Performed By: #### C VFLURV #### [place] [address] SARS-CoV-2 (COVID-19) RNA TROY+probe Ql (Unsp spec) Negative Normal Negative [facility] Comment on above: Result Comment: Resu lts from the Xpert Xpress CoV-2/Flu/RSV plus test should be correlated with the clinical history, epidemiological data, and other data available to the clinical evaluating the patient. Performance of the Xpert Xpress CoV-2/Flu/RSV plus test has only been established in nasopharyngeal swab specimen. Erroneous test results might occur from improper specimen collection, failure to follow the recommended sample collection, handling and storage procedures, technical error, or sample mix-up. False negative results may occur if a virus is present at a level below the analytical limit of detection. Viral nucleic acid may persist in vivo, independent of virus viability. Detection of analyte target(s) does not imply that the corresponding virus(es) are infectious or are the causative agents for clinical symptoms. Recent patient exposure to FluMist or other live attenuated influenza vaccines may cause inaccurate positive results. Performed By: #### C VFLURV #### [place] [address] LABORATORYOrdered By: Blanche Vuong on 07-22-2024 Amphetamines Screen Ql (U) Positive *ABN* (07/22/24 3:32 AM) Invalid Interpretation Code Negative AO ADM SS Appearance (U) Slightly Cloudy *ABN* (07/22/24 3:32 AM) Invalid Interpretation Code Clear AO Auto Urine SS Bacteria LM.HPF (Urine sed) [#/Area] Trace /HPF Invalid Interpretation Code Negative AO Auto Urine SS Barbiturates Screen Ql (U) Negative *NA* (07/22/24 3:32 AM) Invalid Interpretation Code Negative AO ADM SS Benzodiazepines Ql (U) Negative *NA* (07/22/24 3:32 AM) Invalid Interpretation Code Negative AO ADM SS Benzoylecgonine Screen Ql (U) Negative *NA* (07/22/24 3:32 AM) Invalid Interpretation Code Negative AO ADM SS Bilirubin Ql (U) Small *ABN* (07/22/24 3:32 AM) Invalid Interpretation Code Negative AO Auto Urine SS Cannabinoids Screen Ql (U) Positive *ABN* (07/22/24 3:32 AM) Invalid Interpretation Code Negative AO ADM SS Color (U) Yellow (07/22/24 3:32 AM) Normal AO Auto Urine SS Glucose Test strip (U) [Mass/Vol] Negative Normal Negative AO Auto Urine SS Hemoglobin Auto test strip (U) [Mass/Vol] Trace (07/22/24 3:32 AM) Normal Negative AO Auto Urine SS Ketones Ql (U) 80 mg/dL Invalid Interpretation Code Negative AO Auto Urine SS Methadone Screen Ql (U) Negative *NA* (07/22/24 3:32 AM) Invalid Interpretation Code Negative AO ADM SS Opiates Screen Ql (U) Negative *NA* (07/22/24 3:32 AM) Invalid Interpretation Code Negative AO ADM SS Phencyclidine Ql (U) Negative *NA* (07/22/24 3:32 AM) Invalid Interpretation Code Negative AO ADM SS UA Leuk Est Negative (07/22/24 3:32 AM) Normal Negative AO Auto Urine SS UA Mucous 1+ /HPF Normal AO Auto Urine SS UA Nitrite Negative (07/22/24 3:32 AM) Normal Negative AO Auto Urine SS UA pH 8.0 (07/22/24 3:32 AM) Normal 5.0 - 8.0 AO Auto Urine SS UA Protein 30 mg/dL Normal Negative AO Auto Urine SS UA RBC 0-2 /HPF Normal 0-2 AO Auto Urine SS UA Spec Grav 1.010 *ABN* (07/22/24 3:32 AM) Invalid Interpretation Code 1.015-1.025 AO Auto Urine SS UA Specimen Type Straight Cath (07/22/24 3:32 AM) Normal AO Auto Urine SS UA Squam Epithelial 0-2 /HPF Normal 0-20 AO Au to Urine SS UA Urobilinogen 1.0 E.U./dL Normal 0.2-1.0 AO Auto Urine SS Urine Drugs screened: See Below 3 (07/22/24 3:32 AM) Normal AO Chemistry S Comment on above: Interpretive Data: T his drug screen is a presumptive screening only. No confirmation will be performed unless requested. Drugs screened include: Threshold Amphetamines/Methamphetamines 1,000 ng/mL Barbiturates 200 ng/mL Benzodiazepine metabolites 200 ng/mL Cannabinoids (THC metabolites) 50 ng/mL Cocaine 300 ng/mL Opiates 300 ng/mL Methadone 300 ng/mL Phencyclidine (PCP) 25 ng/mL Testing has been performed FOR MEDICAL PURPOSES ONLY. WBC LM.HPF (Urine sed) [#/Area] Negative Normal 0-5 AO Auto Urine SS Ethanol [Mass/Vol] mg/dL Invalid Interpretation Code AO Chemistry S FLUAV RNA TROY+probe Ql (Resp) Negative (07/22/24 2:43 AM) Normal Negative AO Auto Urine SS FLUBV RNA TROY+probe Ql (Resp) Negative (07/22/24 2:43 AM) Normal Negative AO Auto Urine SS HCG ( test) Ql Negative (07/22/24 2:43 AM) Normal AO Manual Urine SS test (u) int Not detected Invalid Interpretation Code AO Manual Urine SS RSV RNA TROY+probe Ql (Resp) Negative (07/22/24 2:43 AM) Normal Negative AO Auto Urine SS SARS-CoV-2 (COVID-19) RNA TROY+probe Ql (Resp) Negative 5 (07/22/24 2:43 AM) Normal Negative AO Auto Urine SS Comment on above: Interpretive Data: R esults from the Xpert Xpress CoV-2/Flu/RSV plus test should be correlated with the clinical history, epidemiological data, and other data available to the clinical evaluating the patient. Performance of the Xpert Xpress CoV-2/Flu/RSV plus test has only been established in nasopharyngeal swab specimen. Erroneous test results might occur from improper specimen collection, failure to follow the recommended sample collection, handling and storage procedures, technical error, or sample mix-up. False negative results may occur if a virus is present at a level below the analytical limit of detection. Viral nucleic acid may persist in vivo, independent of virus viability. Detection of analyte target(s) does not imply that the corresponding virus(es) are infectious or are the causative agents for clinical symptoms. Recent patient exposure to FluMist or other live attenuated influenza vaccines may cause inaccurate positive results. LABORATORYOrdered By: SYSTEM SYSTEM on 07-22-2024 Basophils (Bld) [#/Vol] 0.1 103/mcL Normal 0.0 - 0.3 10^3/mcL AO Workflow SS Basophils/100 WBC (Bld) 0.4 % Normal 0.0 - 2.5 % AO Workflow SS Calcium [Mass/Vol] 9.3 mg/dL Normal 8.4 - 10. 2 mg/dL AO ADM SS Chloride [Moles/Vol] 101 mmol/L Normal 98 - 10 7 mmol/L AO ADM SS CO2 [Moles/Vol] 22 mmol/L Normal 22 - 29 mmol/L AO AD M SS Creatinine [Mass/Vol] 0.78 mg/dL Normal 0.51 - 0.95 mg/dL AO ADM SS Electrolyte Balance 15.0 mEq/L Normal 4.0 - 15 .0 mEq/L AO ADM SS Eosinophil, Absolute 0.1 103/mcL Normal 0.0 - 0 .7 10^3/mcL AO Workflow SS Eosinophils/100 WBC (Bld) 0.8 % Normal 0.0 - 6.0 % AO Workflow SS Erythrocyte distribution width (RBC) [Ratio] 13.4 % Normal 11.5 - 15.5 % AO Workflow SS Estimated Glomerular Filtration Rate 103 ml/min/1.73sqm Invalid Interpretation Code AO Chemistry S Comment on above: Interpretive Data: Stages of Chronic Kidney Disease (CKD) Stage Description eGFR(ml/min/1.73 sq.m.) CKD 1 Normal kidney function or >=90 normal kindney function with possible kidney damage (ex. Proteinuria) CKD 2 Kidney damage with mild loss 60-89 of kidney function CKD 3a Mild to moderate loss of kidney 45-59 function CKD 3b Moderate to severe loss of 30-44 of kindey function CKD 4 Severe loss of kidney function 15-29 CKD 5 Kidney failure <15 Note: (go live 2024) the eGFR calculation was updated to the 2020 CKD-EPI creatinine equation without a race factor to calculate the eGFR results. Glucose [Mass/Vol] 102 mg/dL Normal 70 - 105 mg/dL AO ADM SS Hematocrit (Bld) [Volume fraction] 39.3 % Normal 34.0 - 46.0 % AO Workflow SS Hemoglobin (Bld) [Mass/Vol] 13.4 G/dL Normal 12.0 - 16.0 G/dL AO Workflow SS Lymphocytes (Bld) [#/Vol] 5.3 103/mcL High 0.9 - 4.3 10^3/mcL AO Workflow SS Lymphocytes/100 WBC (Bld) 31.8 % Normal 20.0 - 40.0 % AO Workflow SS MCH (RBC) [Entitic mass] 28.6 pg Normal 27.0 - 33.0 pg AO Workflow SS MCHC 34.1 G/dL Normal 32.0 - 36.0 G/dL AO Workflow SS MCV (RBC) [Entitic vol] 83.7 fL Normal 80.0 - 99.0 fL AO Workflow SS Monocyte distribution width Auto (Bld) [Entitic vol] 20.09 1 High 0.00 - 20.00 AO Workflow SS Comment on above: Result Comment: For adults in ED, MDW>20.0 may be associated with a higher risk of sepsis during the first 12hrs of hospital admission Monocytes (Bld) [#/Vol] 0.7 103/mcL Normal 0.1 - 1.4 10^3/mcL AO Workflow SS Monocytes/100 WBC (Bld) 4.1 % Normal 2.0 - 13.0 % AO Workflow SS Neutrophils (Bld) [#/Vol] 10.5 103/mcL High 2.3 - 8.1 10^3/mcL AO Workflow SS Neutrophils/100 WBC (Bld) 62.9 % Normal 50.0 - 75.0 % AO Workflow SS Platelet mean volume (Bld) [Entitic vol] 6.9 fL Normal 6.6 - 10.5 fL AO Workflow SS Platelets (Bld) [#/Vol] 398 103/mcL Normal 150 - 450 10^3/mcL AO Workflow SS Potassium [Moles/Vol] 3.5 mmol/L Normal 3.5 - 5.1 mmol/L AO ADM SS RBC (Bld) [#/Vol] 4.69 106/mcL Normal 4.10 - 5.3 0 10^6/mcL AO Workflow SS Sodium [Moles/Vol] 138 mmol/L Normal 136 - 145 mmol/L AO ADM SS Troponin I.cardiac DL <= 0.01 ng/mL [Mass/Vol] 9 ng/L Normal 0 - 51 ng/L AO ADM SS Comment on above: Interpretive Data: H igh Sensitive Troponin I Reference Ranges: Female: 0-51 ng/L Male: 0-76 ng/L Testing performed on [employer] using a homogeneous sandwich chemiluminescent immunoassay based on [employer] technology. Urea nitrogen [Mass/Vol] 15 mg/dL Normal 7 - 18 mg/dL AO ADM SS Urea nitrogen/Creatinine [Mass ratio] 19 ratio Normal 7 - 27 ratio AO ADM SS WBC (Bld) [#/Vol] 16.7 103/mcL High 4.5 - 10.8 10^3/mcL AO Workflow SS PREGUon 07-22-2024 HCG ( test) Ql (U) Negative Normal [facility] Comment on above: Performed By: #### U DRUG, UAMIC, UA, PREGU #### [address] [address] test (u) int Not detected Invalid Interpretation Code [facility] Comment on above: Performed By: #### U DRUG, UAMIC, UA, PREGU #### [address] [address] TROPHSon 07-22-2024 High Sensitivity Troponin I 9 ng/L Normal 0-51 [facility] Comment on above: Result Comment: High Sensitive Troponin I Reference Ranges: Female: 0-51 ng/L Male: 0-76 ng/L Testing performed on [employer] using a homogeneous sandwich chemiluminescent immunoassay based on [employer] technology. Performed By: #### U DRUG, UAMIC, UA, PREGU #### [address] [address] UAon 07-22-2024 Color (U) Yellow Normal [facility] Comment on above: Performed By: #### U DRUG, UAMIC, UA, PREGU #### [address] [address] Glucose (U) [Mass/Vol] Negative Normal Negative [facility] Comment on above: Performed By: #### U DRUG, UAMIC, UA, PREGU #### [place] [address] Ketones Ql (U) 80 mg/dL Abnormal Negative [facility] Comment on above: Performed By: #### U DRUG, UAMIC, UA, PREGU #### [place] [address] UA Appear Slightly Cloudy Abnormal Clear [facility] Comment on above: Performed By: #### U DRUG, UAMIC, UA, PREGU #### [place] [address] UA Bili Small Abnormal Negative [facility] Comment on above: Performed By: #### U DRUG, UAMIC, UA, PREGU #### [place] [address] UA Blood Trace Normal Negative [facility] Comment on above: Performed By: #### U DRUG, UAMIC, UA, PREGU #### [place] [address] UA Leuk Est Negative Normal Negative [facility] Comment on above: Performed By: #### U DRUG, UAMIC, UA, PREGU #### [place] [address] UA Nitrite Negative Normal Negative [facility] Comment on above: Performed By: #### U DRUG, UAMIC, UA, PREGU #### [address] [address] UA pH 8.0 Normal 5.0 - 8.0 [facility] Comment on above: Performed By: #### U DRUG, UAMIC, UA, PREGU #### [place] [address] UA Protein 30 mg/dL Normal Negative [facility] Comment on above: Performed By: #### U DRUG, UAMIC, UA, PREGU #### [address] [address] UA Spec Grav 1.010 Abnormal 1.015-1.025 [facility] Comment on above: Performed By: #### U DRUG, UAMIC, UA, PREGU #### [address] [address] UA Specimen Type Straight Cath Normal [facility] Comment on above: Performed By: #### U DRUG, UAMIC, UA, PREGU #### [address] [address] UA Urobilinogen 1.0 E.U./dL Normal 0.2-1.0 [facility] Comment on above: Performed By: #### U DRUG, UAMIC, UA, PREGU #### [place] [address] UAMICon 07-22-2024 UA Bacteria Trace Abnormal Negative [facility] Comment on above: Performed By: #### U DRUG, UAMIC, UA, PREGU #### [place] [address] UA Mucous 1+ /hpf Normal [facility] Comment on above: Performed By: #### U DRUG, UAMIC, UA, PREGU #### [address] [address] UA RBC 0-2 Normal 0-2 [facility] Comment on above: Performed By: #### U DRUG, UAMIC, UA, PREGU #### [address] [address] UA Squam Epithelial 0-2 Normal 0-20 [facility] Comment on above: Performed By: #### U DRUG, UAMIC, UA, PREGU #### [address] [address] UA WBC Negative Normal 0-5 [facility] Comment on above: Performed By: #### U DRUG, UAMIC, UA, PREGU #### [place] [address] UDRUGon 07-22-2024 Amphetamine (u) Positive Abnormal Negative [facility] Comment on above: Performed By: #### U DRUG, UAMIC, UA, PREGU #### [place] [address] Barbiturate (u) Negative Normal Negative [facility] Comment on above: Performed By: #### U DRUG, UAMIC, UA, PREGU #### [place] [address] Benzodiazepine (u) Negative Normal Negative [facility] Comment on above: Performed By: #### U DRUG, UAMIC, UA, PREGU #### [place] [address] Cannabinoid (u) Positive Abnormal Negative [facility] Comment on above: Performed By: #### U DRUG, UAMIC, UA, PREGU #### [place] [address] Cocaine Ql (U) Negative Normal Negative [facility] Comment on above: Performed By: #### U DRUG, UAMIC, UA, PREGU #### [place] [address] Methadone Ql (U) Negative Normal Negative [facility] Comment on above: Performed By: #### U DRUG, UAMIC, UA, PREGU #### [place] [address] Opiate (u) Negative Normal Negative [facility] Comment on above: Performed By: #### U DRUG, UAMIC, UA, PREGU #### [place] [address] PCP (u) Negative Normal Negative [facility] Comment on above: Performed By: #### U DRUG, UAMIC, UA, PREGU #### [place] [address] Urine Drugs screened: See Below Normal [facility] Comment on above: Result Comment: This drug screen is a presumptive screening only. No confirmation will be performed unless requested. Drugs screened include: Threshold Amphetamines/Methamphetamines 1,000 ng/mL Barbiturates 200 ng/mL Benzodiazepine metabolites 200 ng/mL Cannabinoids (THC metabolites) 50 ng/mL Cocaine 300 ng/mL Opiates 300 ng/mL Methadone 300 ng/mL Phencyclidine (PCP) 25 ng/mL Testing has been performed FOR MEDICAL PURPOSES ONLY. Performed By: #### U DRUG, UAMIC, UA, PREGU #### [place] [address] [place], [place] [address] XR CHEST 1 VIEWon 07-22-2024 XR CHEST 1 VIEW ORIGINAL EXAMINATION: ONE XRAY VIEW OF THE CHEST 07/22/2024 3:28 am COMPARISON: None. HISTORY: ORDERING SYSTEM PROVIDED HISTORY: Reason for Exam: Altered mental status FINDINGS: The heart size is normal. There is hypoventilation of the lungs. No acute infiltrate or edema is present. There is no pleural fluid or pneumothorax. The skeletal structures are unremarkable. IMPRESSION: No acute abnormality of the chest. Interpreted by: Tien Macias MD Preliminary Report By: Tien Macias MD Electronically signed By Tien Macias MD Dictated Date: 07/22/2024 3:36:32 AM Prelim Date: 07/22/2024 3:37:02 AM Sign Date: 07/22/2024 3:37:02 AM Ordering Provider[facility] ) -------- STELLA COLLINS ([id number]) 1990 F Date Time Provider Department 06/09/24 3:15 PM LUCIA DARNELL [facility] During your visit today, we recorded the following information about you: Temperature Pulse Respiration Blood pressure 98.4 degrees 128/minute 18/minute 128/82 Weight 95.1 kg Lucia Darnell PA-C 06/09/2024 3:19 PM Signed This note was created using NoteWriter. Subjective Stella Collins is a 33 year old female. Patient is a 33-year-old female who complains of increased episodes of wheezing and cough that she has been experiencing for the past 3 to 4 days. Patient reports no congestion, sinus pressure, ear pain, sore throat or other illness symptoms. Patient denies fever, chills or myalgia. Patient does have asthma and has no history of COPD. Patient does not smoke. Patient has been using her ventilation medication with no improvement. Patient is requesting a refill of her albuterol nebulizer solution. Cough Associated symptoms include wheezing. Review of Systems Respiratory: Positive for cough and wheezing. All other systems reviewed and are negative. Objective BP 128/82 Pulse (!) 128 Temp 36.9 ?C (98.4 ?F) Resp 18 Wt 95.1 kg (209 lb 10.5 oz) LMP 07/15/2020 SpO2 97% BMI 39.61 kg/m? Physical Exam Vitals and nursing note reviewed. Constitutional: Appearance: Normal appearance. She is normal weight. HENT: Head: Normocephalic and atraumatic. Right Ear: Tympanic membrane, ear canal and external ear normal. Left Ear: Tympanic membrane, ear canal and external ear normal. Nose: Nose normal. Mouth/Throat: Mouth: Mucous membranes are moist. Pharynx: Oropharynx is clear. Eyes: Extraocular Movements: Extraocular movements intact. Conjunctiva/sclera: Conjunctivae normal. Pupils: Pupils are equal, round, and reactive to light. Cardiovascular: Rate and Rhythm: Normal rate and regular rhythm. Pulses: Normal pulses. Heart sounds: Normal heart sounds. Pulmonary: Effort: Pulmonary effort is normal. Breath sounds: Normal breath sounds. Musculoskeletal: Cervical back: Normal range of motion and neck supple. Skin: General: Skin is warm and dry. Capillary Refill: Capillary refill takes less than 2 seconds. Neurological: General: No focal deficit present. Mental Status: She is alert and oriented to person, place, and time. Psychiatric: Mood and Affect: Mood normal. Behavior: Behavior normal. Thought Content: Thought content normal. Judgment: Judgment normal. Assessment and Plan Physical exam findings as noted above. Patient was provided with prescriptions for prednisone 20 mg and albuterol 0.083% nebulizer solution. Patient was clearly advised to report to the emergency department if she develops worsening shortness of breath or other concerning symptoms. Patient verbalizes clear understanding of the above instructions. CLINICAL IMPRESSION: Acute Asthma Exacerbation; Medication Refill ASSESSMENT/PLAN: 1. Mild intermittent asthma with acute exacerbation - ICD9: 493.92, ICD10: J45.21 - ALBUTEROL SULFATE 2.5 MG/3 ML (0.083 %) SOLUTION FOR NEBULIZATION - PREDNISONE 20 MG TABLET MDM Risk of Complications, Morbidity, and/or Mortality Presenting problems: low Diagnostic procedures: low Management options: cortney Darnell PA-C Allergies As of Date: 06/09/2024 (No Known Allergies) Date Reviewed: 06/09/2024 Reviewed by: Marcela Ramírez MA - Fully Assessed Reason for Visit: Cough [28] Cmt: wheezing and sob x 4 days Primary Visit Diagnosis:Mild intermittent asthma with acute exacerbation [J45.21] Order(s):albuterol (PROVENTIL) 2.5 mg /3 mL (0.083 %) nebulizer solutionUse 3 mL via nebulizer every 4 hours as needed for wheezing/shortness of breath for up to 25 doses.Disp: 75 mLRfl: 0 predniSONE (DELTASONE) 20 mg tabletTake 1 tablet by mouth two times a day for 5 days.Disp: 10 tabletRfl: 0 Prescriptions as of 06/09/2024 - albuterol (PROVENTIL) 2.5 mg /3 mL (0.083 %) nebulizer solution Use 3 mL via nebulizer every 4 hours as needed for wheezing/shortness of breath for up to 25 doses. - predniSONE (DELTASONE) 20 mg tablet Take 1 tablet by mouth two times a day for 5 days. - albuterol HFA (VENTOLIN HFA) 90 mcg/actuation inhaler Inhale 2 Puffs as instructed every 4 hours as needed for wheezing/shortness of breath. - montelukast (SINGULAIR) 10 mg tablet Take 1 tablet by mouth daily at bedtime. - fluticasone-salmeterol HFA (ADVAIR HFA) 230-21 mcg/actuation inhaler Inhale 2 Puffs as instructed two times a day. - celecoxib (CELEBREX) 200 mg capsule Take 1 capsule by mouth once daily. - propranolol (INDERAL) 10 mg tablet Take 10 mg by mouth three times a day as needed. - REXULTI 0.5 mg tablet Take 0.5 mg by mouth once daily. - ondansetron orally disintegrating (ZOFRAN ODT) 4 mg disintegrating tablet Take (more content not included)... Normal [facility] Antinuclear Antibody, IFAon 05-28-2024 BLAYNE, IFA Negative Normal . [facility] Comment on above: Result Comment: Nega tive <1:80 Borderline 1:80 Positive >1:80 ICAP nomenclature: AC-0 For more information about Hep-2 cell patterns use ANApatterns.org, the official website for the International Consensus on Antinuclear Antibody (BLAYNE) Patterns (ICAP). Performed at: [address] [id number] Proposal Lead Writer: Popeye Hernández MD, Phone: [phone] Performed at: [address] [id number] Proposal Lead Writer: Ganga Luke PhD, Phone: [phone] Performed By: #### L 503.6550, L3100.7950, L501.9520, L100.0100, L506.1001, L3300.0960, L3300.1500, L3300.9910, L3300.6820, L506.0400 ####[facility] [id number] [place], [address] DHEA Sulfateon 05-28-2024 DHEA SULFATE 118.0 ug/dL Normal 84.8-378.0 [facility] Comment on above: Order Comment: Test( s) [id number], Whole Bloodwas developed and its performance characteristicsdetermined by [employer] It has not been cleared or approvedby the Food and Drug Administration.N Performed By: #### L 503.6550, L3100.7950, L501.9520, L100.0100, L506.1001, L3300.0960, L3300.1500, L3300.9910, L3300.6820, L506.0400 ####[facility] [id number] [place], [address] Thyroglobulin w/Anti-TG ABon 03-17-2025 Anti-TG AB < 1.0 Normal 0.0-0.9 [facility] Comment on above: Order Comment: Test( s) [id number], Whole Bloodwas developed and its performance characteristicsdetermined by [employer] It has not been cleared or approvedby the Food and Drug Administration. Result Comment: Thyr oglobulin Antibody measured by [facility] [employer] It should be noted that the presence of thyroglobulin antibodies may not be pathogenic nor diagnostic, especially at very low levels. The assay senior sustainability consultant has found that four percent of individuals without evidence of thyroid disease or autoimmunity will have positive TgAb levels up to 4 IU/mL. Performed By: #### L 503.6550, L3100.7950, L501.9520, L100.0100, L506.1001, L3300.0960, L3300.1500, L3300.9910, L3300.6820, L506.0400 ####[facility] [address] [place], [place], [address] THYROGLOB QUANT 23.6 ng/mL Normal 1.5-38.5 [facility] Comment on above: Order Comment: Test( s) [id number], Whole Bloodwas developed and its performance characteristicsdetermined by [employer] It has not been cleared or approvedby the Food and Drug Administration. Result Comment: Acco rding to the National Academy of Clinical Biochemistry, the reference interval for Thyroglobulin (TG) should be related to euthyroid patients and not for patients who underwent thyroidectomy. TG reference intervals for these patients depend on the residual mass of the thyroid tissue left after surgery. Establishing a post-operative baseline is recommended. The assay limit of quantitation is 0.1 ng/mL Thyroglobulin measured by [employer] Performed at: [facility] [employer] [id number] Proposal Lead Writer: Ganga Luke PhD, Phone: [phone] Performed at: [facility] [employer] [id number] Proposal Lead Writer: Poepye Hernández MD, Phone: [phone] Performed By: #### L 503.6550, L3100.7950, L501.9520, L100.0100, L506.1001, L3300.0960, L3300.1500, L3300.9910, L3300.6820, L506.0400 ####[facility] [address] [place], [address] Vitamin D 1,25-Dihydroxyon 0 05-28-2024 VIT D 1,25 DIHY 43.2 pg/mL Normal 24.8-81.5 [facility] Comment on above: Performed By: #### L 503.6550, L3100.7950, L501.9520, L100.0100, L506.1001, L3300.0960, L3300.1500, L3300.9910, L3300.6820, L506.0400 ####[facility] [address] [facility] [place], [address] Zinc, WHOLE BLOODon 05-29-19 25 Zinc Whole Bld 570 ug/dL Normal 440-860 [facility] Comment on above: Order Comment: Test( s) [id number], Whole Bloodwas developed and its performance characteristicsdetermined by [employer] It has not been cleared or approvedby the Food and Drug Administration. Performed By: #### L 503.6550, L3100.7950, L501.9520, L100.0100, L506.1001, L3300.0960, L3300.1500, L3300.9910, L3300.6820, L506.0400 ####[facility] [address] [facility] [address] [place], [place], [phone] CBC W/Diff, Automatedon 05-12 Absolute Lymph 4.46 X10 3/uL Normal 0.83-4.51 [facility] Comment on above: Performed By: #### L 503.6550, L3100.7950, L501.9520, L100.0100, L506.1001, L3300.0960, L3300.1500, L3300.9910, L3300.6820, L506.0400 ####[facility] [address] [place], [address] Absolute Neut 7.9 X10 3/uL High 2.0-7.7 [facility] Comment on above: Performed By: #### L 503.6550, L3100.7950, L501.9520, L100.0100, L506.1001, L3300.0960, L3300.1500, L3300.9910, L3300.6820, L506.0400 ####[facility] [address] [place], [address] Basophils/100 WBC (Bld) 0.4 % Normal 0-1 [facility] Comment on above: Performed By: #### L 503.6550, L3100.7950, L501.9520, L100.0100, L506.1001, L3300.0960, L3300.1500, L3300.9910, L3300.6820, L506.0400 ####[facility] [address] [place], [address] Eosinophils/100 WBC (Bld) 3.3 % Normal 0-5 [facility] Comment on above: Performed By: #### L 503.6550, L3100.7950, L501.9520, L100.0100, L506.1001, L3300.0960, L3300.1500, L3300.9910, L3300.6820, L506.0400 ####[facility] [address] [place], [address] Erythrocyte distribution width (RBC) [Ratio] 13.0 % Normal 11.6-14.6 [facility] Comment on above: Performed By: #### L 503.6550, L3100.7950, L501.9520, L100.0100, L506.1001, L3300.0960, L3300.1500, L3300.9910, L3300.6820, L506.0400 ####[facility] [address] [place], [address] Hematocrit (Bld) [Volume fraction] 41.0 % Normal 37-47 [facility] Comment on above: Performed By: #### L 503.6550, L3100.7950, L501.9520, L100.0100, L506.1001, L3300.0960, L3300.1500, L3300.9910, L3300.6820, L506.0400 ####[facility] [address] [facility] [place], [address] Hemoglobin (Bld) [Mass/Vol] 13.4 g/dL Normal 12.0-15.0 [facility] Comment on above: Performed By: #### L 503.6550, L3100.7950, L501.9520, L100.0100, L506.1001, L3300.0960, L3300.1500, L3300.9910, L3300.6820, L506.0400 ####[facility] [address] [facility] [place], [address] IG% 0.300 Normal 0.0-0.9 [facility] Comment on above: Result Comment: IG% - Immature Granulocytes (promyelocytes, myelocytes and metamyelocytes) > 1% indicates that a LEFT SHIFT is Present. Performed By: #### L 503.6550, L3100.7950, L501.9520, L100.0100, L506.1001, L3300.0960, L3300.1500, L3300.9910, L3300.6820, L506.0400 ####[facility] [address] [place], [address] Lymphocytes/100 WBC (Bld) 33.1 % Normal 19-41 [facility] Comment on above: Performed By: #### L 503.6550, L3100.7950, L501.9520, L100.0100, L506.1001, L3300.0960, L3300.1500, L3300.9910, L3300.6820, L506.0400 ####[facility] [address] [place], [address] MCH (RBC) [Entitic mass] 28.3 pg Normal 27.0-32.0 [facility] Comment on above: Performed By: #### L 503.6550, L3100.7950, L501.9520, L100.0100, L506.1001, L3300.0960, L3300.1500, L3300.9910, L3300.6820, L506.0400 ####[facility] [address] [place], [address] MCHC (RBC) [Mass/Vol] 32.7 g/dL Normal 32-36 [facility] Comment on above: Performed By: #### L 503.6550, L3100.7950, L501.9520, L100.0100, L506.1001, L3300.0960, L3300.1500, L3300.9910, L3300.6820, L506.0400 ####[facility] [address] [place], [address] MCV (RBC) [Entitic vol] 86.5 fL Normal 81-99 [facility] Comment on above: Performed By: #### L 503.6550, L3100.7950, L501.9520, L100.0100, L506.1001, L3300.0960, L3300.1500, L3300.9910, L3300.6820, L506.0400 ####[facility] [address] [place], [address] Monocytes/100 WBC (Bld) 4.5 % Normal 0-10 [facility] Comment on above: Performed By: #### L 503.6550, L3100.7950, L501.9520, L100.0100, L506.1001, L3300.0960, L3300.1500, L3300.9910, L3300.6820, L506.0400 ####[facility] [address] [place], [address] Neutrophils/100 WBC (Bld) 58.4 % Normal 47-70 [facility] Comment on above: Performed By: #### L 503.6550, L3100.7950, L501.9520, L100.0100, L506.1001, L3300.0960, L3300.1500, L3300.9910, L3300.6820, L506.0400 ####[facility] [address] [place], [address] Nucleated RBC (Bld) [#/Vol] 0 10*3/uL Normal 0-5 [facility] Comment on above: Performed By: #### L 503.6550, L3100.7950, L501.9520, L100.0100, L506.1001, L3300.0960, L3300.1500, L3300.9910, L3300.6820, L506.0400 ####[facility] [address] [place], [address] Platelet mean volume (Bld) [Entitic vol] 9.1 fL Normal 6.2-12.0 [facility] Comment on above: Performed By: #### L 503.6550, L3100.7950, L501.9520, L100.0100, L506.1001, L3300.0960, L3300.1500, L3300.9910, L3300.6820, L506.0400 ####[facility] [address] [place], [address] Platelets (Bld) [#/Vol] 373 10*3/uL Normal 150-450 [facility] Comment on above: Performed By: #### L 503.6550, L3100.7950, L501.9520, L100.0100, L506.1001, L3300.0960, L3300.1500, L3300.9910, L3300.6820, L506.0400 ####[facility] [address] [place], [place], [address] RBC (Bld) [#/Vol] 4.74 10*6/uL Normal 4.2-5.4 [facility] Comment on above: Performed By: #### L 503.6550, L3100.7950, L501.9520, L100.0100, L506.1001, L3300.0960, L3300.1500, L3300.9910, L3300.6820, L506.0400 ####[facility] [address] [facility]. [place], [place], [address] RDW SD 40.6 fl Normal 35.1-43.9 [facility] Comment on above: Performed By: #### L 503.6550, L3100.7950, L501.9520, L100.0100, L506.1001, L3300.0960, L3300.1500, L3300.9910, L3300.6820, L506.0400 ####[facility] [address] [facility] [place], [place], [address] WBC (Bld) [#/Vol] 13.5 10*3/uL High 4.4-11.0 [facility] Comment on above: Performed By: #### L 503.6550, L3100.7950, L501.9520, L100.0100, L506.1001, L3300.0960, L3300.1500, L3300.9910, L3300.6820, L506.0400 ####[facility] [address] [facility] [place], [place], [id number] Ferritinon 05-24-2024 Ferritin [Mass/Vol] 46 ng/mL Normal 22-378 [facility] Comment on above: Performed By: #### L 503.6550, L3100.7950, L501.9520, L100.0100, L506.1001, L3300.0960, L3300.1500, L3300.9910, L3300.6820, L506.0400 ####[facility] [address] [place], [address] L506.1001on 05-24-2024 Vitamin D 25-OH 30.5 ng/mL Normal 30-100 [facility] Comment on above: Result Comment: Marta min D Status Deficiency: <20 ng/mL (50nmol/L) Insufficiency: 20-30 ng/mL (50-75 nmol/L) Sufficiency: 30-100 ng/mL (75-250 nmol/L) Toxicity: >100 ng/mL (>250 nmol/L) Performed By: #### L 503.6550, L3100.7950, L501.9520, L100.0100, L506.1001, L3300.0960, L3300.1500, L3300.9910, L3300.6820, L506.0400 ####[facility] [address] [place], [place], [address] T4 Free Directon 05-24-2024 T4 FREE DIRECT 1.00 ng/dL Normal 0.76-1.46 [facility] Comment on above: Performed By: #### L 503.6550, L3100.7950, L501.9520, L100.0100, L506.1001, L3300.0960, L3300.1500, L3300.9910, L3300.6820, L506.0400 ####[facility] [address] [place], [place], [address] Thyroid Stim Hormone (TSH)on 05-24-2024 TSH 0.561 uIU/mL Normal 0.300-4.200 [facility] Comment on above: Performed By: #### L 503.6550, L3100.7950, L501.9520, L100.0100, L506.1001, L3300.0960, L3300.1500, L3300.9910, L3300.6820, L506.0400 ####[facility] [address] [place], [place], [address] CNOVon 03-27-2024 CNOV Office Visit ([facility] ) -------- STELLA COLLINS ([id number]) 1990 F Date Time Provider Department 03/27/24 12:45 PM ANTONETTE ROWELL [facility] During your visit today, we recorded the following information about you: Temperature Pulse Respiration Blood pressure 97.3 degrees 114/minute 18/minute 128/82 Weight 95 kg Antonette Rowell APRN.LYFT DRIVER 03/27/2024 1:09 PM Signed Subjective HPI HPI Stella Contreras Dennis is a 33 year old female who presents today for CC of st. This started 1 day ago. Has tried nothing for relief. Symptoms are worsened by nothing. Risk factors sick exposures. Smoker. Denies possibility of being . Hx of asthma.. .Patient presents with: Sore Throat: ST x 1 day PAST MEDICAL HISTORY Diagnosis Date Anemia WITH Anxiety and depression 09/07/2021 PAST SURGICAL HISTORY Procedure Laterality Date CARPAL TUNNEL 2017 right hand DELIVERY ONLY 2010 , low transverse DELIVERY ONLY 11/06/13 , low transverse DELIVERY ONLY 06/18/2019 RC/S low transverse NEXPLANON INSERTION 12/28/2013 removed TUBAL LIGATION Bilateral 06/18/2019 ALLERGIES Patient has no known allergies. MEDICATIONS predniSONE (DELTASONE) 20 mg tablet Take 2 tablets by mouth once daily for 4 days. Take daily with food. methocarbamol (ROBAXIN) 500 mg tablet Take 1 tablet by mouth every 6 hours as needed (Pain) for up to 3 days. montelukast (SINGULAIR) 10 mg tablet Take 1 tablet by mouth daily at bedtime. fluticasone-salmeterol HFA (ADVAIR HFA) 230-21 mcg/actuation inhaler Inhale 2 Puffs as instructed two times a day. celecoxib (CELEBREX) 200 mg capsule Take 1 capsule by mouth once daily. propranolol (INDERAL) 10 mg tablet Take 10 mg by mouth three times a day as needed. REXULTI 0.5 mg tablet Take 0.5 mg by mouth once daily. hydrOXYzine HCl (ATARAX) 25 mg tablet Take 1 tablet by mouth three times a day as needed for anxiety. venlafaxine ER (EFFEXOR XR) 37.5 mg 24 hr capsule Take 1 capsule by mouth once daily. (Patient taking differently: Take 150 mg by mouth once daily.) pantoprazole DR (PROTONIX) 40 mg tablet Take 1 tablet by mouth once daily. busPIRone (BUSPAR) 10 mg tablet Take 1 tablet by mouth three times daily. (Patient taking differently: Take 15 mg by mouth two times a day.) albuterol HFA (VENTOLIN HFA) 90 mcg/actuation inhaler Inhale 2 Puffs as instructed every 4 hours as needed for wheezing/shortness of breath. ondansetron orally disintegrating (ZOFRAN ODT) 4 mg disintegrating tablet Take 1 tablet by mouth every 8 hours as needed for nausea/vomiting. (Patient not taking: Reported on 03/27/2024) etonogestrel (NEXPLANON) subdermal implant 68 mg 1 [...] History Tobacco Use Smoking status: Every Day Current packs/day: 1.00 Average packs/day: 1 pack/day for 5.0 years (5.0 ttl pk-yrs) Types: Cigarettes Smokeless tobacco: Never Tobacco comments: 1 ppd started at age 18 Vaping Use Vaping status: Never Used Substance Use Topics Alcohol use: No Drug use: No Review of Systems Constitutional: Negative for fever. HENT: Positive for sore throat. Negative for congestion, ear pain and nosebleeds. Respiratory: Negative for cough, shortness of breath and wheezing. Musculoskeletal: Negative for neck pain. Skin: Negative for itching and rash. Objective Blood pressure 128/82, pulse 114, temperature 36.3 ?C (97.3 ?F), temperature source Tympanic, resp. rate 18, weight 95 kg (209 lb 7 oz), last menstrual period 07/15/2020, SpO2 100%. Physical Exam Constitutional: General: She is not in acute distress. Appearance: She is not toxic-appearing or diaphoretic. HENT: Head: Normocephalic and atraumatic. Right Ear: Hearing, tympanic membrane, ear canal and external ear normal. Left Ear: Hearing, tympanic membrane, ear canal and external ear normal. Nose: Nose normal. Mouth/Throat: Lips: [place]. Mouth: Mucous membranes are moist. Pharynx: Uvula midline. Posterior oropharyngeal erythema present. No pharyngeal swelling, oropharyngeal exudate or uvula swelling. Eyes: General: Lids are normal. No scleral icterus. Right eye: No discharge. Left eye: No discharge. Conjunctiva/sclera: Conjunctivae normal. Pupils: Pupils are equal, round, and reactive to light. Neck: Trachea: Trachea normal. Cardiovascular: Rate (more content not included)... Normal [facility] STREP A MOLECULAR (POC)on Procedural Control Valid [facility] Strep A (POCT) Negative Negative [facility] CNOVon 03-26-2024 CNOV Office Visit ([facility] ) -------- SHARONARICHARDSTELLA Ben ([id number]) 1990 F Date Time Provider Department 03/26/24 2:15 PM RUBEN JAIN [facility] During your visit today, we recorded the following information about you: Temperature Pulse Respiration Blood pressure 97.8 degrees 120/minute 16/minute 140/92 Weight 94.9 kg Ruben Jain PA 03/26/2024 2:40 PM Signed This note was created using NoteWriter. Subjective Stella Contreras Dennis is a 33 year old female. HPI 33-year-old female presents for left shoulder pain. Patient has had left shoulder pain for several years that flares up from time to time. She states that she shoveled snow the other day and left shoulder pain got worse. Pain worse with movement. She has tried ibuprofen and Celebrex with minimal improvement. No numbness or tingling of the arm. No neck pain. No history of surgery to the shoulder in the past. She is right-hand dominant. PAST MEDICAL HISTORY Diagnosis Date Anemia WITH Anxiety and depression 09/07/2021 PAST SURGICAL HISTORY Procedure Laterality Date CARPAL TUNNEL 2017 right hand DELIVERY ONLY 2010 , low transverse DELIVERY ONLY 11/06/13 , low transverse DELIVERY ONLY 06/18/2019 RC/S low transverse NEXPLANON INSERTION 12/28/2013 removed TUBAL LIGATION Bilateral 06/18/2019 ALLERGIES Patient has no known allergies. MEDICATIONS albuterol HFA (VENTOLIN HFA) 90 mcg/actuation inhaler Inhale 2 Puffs as instructed every 4 hours as needed for wheezing/shortness of breath. montelukast (SINGULAIR) 10 mg tablet Take 1 tablet by mouth daily at bedtime. fluticasone-salmeterol HFA (ADVAIR HFA) 230-21 mcg/actuation inhaler Inhale 2 Puffs as instructed two times a day. celecoxib (CELEBREX) 200 mg capsule Take 1 capsule by mouth once daily. propranolol (INDERAL) 10 mg tablet Take 10 mg by mouth three times a day as needed. REXULTI 0.5 mg tablet Take 0.5 mg by mouth once daily. hydrOXYzine HCl (ATARAX) 25 mg tablet Take 1 tablet by mouth three times a day as needed for anxiety. venlafaxine ER (EFFEXOR XR) 37.5 mg 24 hr capsule Take 1 capsule by mouth once daily. (Patient taking differently: Take 150 mg by mouth once daily.) pantoprazole DR (PROTONIX) 40 mg tablet Take 1 tablet by mouth once daily. busPIRone (BUSPAR) 10 mg tablet Take 1 tablet by mouth three times daily. (Patient taking differently: Take 15 mg by mouth two times a day.) etonogestrel (NEXPLANON) subdermal implant 68 mg 1 Each by SUBDERMAL route as directed. ondansetron orally disintegrating (ZOFRAN ODT) 4 mg disintegrating tablet Take 1 tablet by mouth every 8 hours as needed for nausea/vomiting. (Patient not taking: Reported on 01/17/2024) FAMILY HISTORY Problem Relation Age of Onset [...] History Tobacco Use Smoking status: Every Day Current packs/day: 1.00 Average packs/day: 1 pack/day for 5.0 years (5.0 ttl pk-yrs) Types: Cigarettes Smokeless tobacco: Never Tobacco comments: 1 ppd started at age 18 Vaping Use Vaping status: Never Used Substance Use Topics Alcohol use: No Drug use: No Review of Systems Constitutional: Negative for chills and fever. HENT: Negative for congestion, ear pain and sore throat. Respiratory: Negative for cough and shortness of breath. Cardiovascular: Negative for chest pain. Gastrointestinal: Negative for diarrhea and vomiting. Musculoskeletal: Positive for arthralgias (L shoulder pain). Objective BP 140/92 Pulse 120 Temp 36.6 ?C (97.8 ?F) Resp 16 Wt 94.9 kg (209 lb 3.5 oz) LMP 07/15/2020 SpO2 99% BMI 39.53 kg/m? Physical Exam Vitals and nursing note reviewed. Constitutional: General: She is not in acute distress. Appearance: Normal appearance. She is not toxic-appearing. HENT: Nose: Nose normal. Mouth/Throat: Mouth: Mucous membranes are moist. Eyes: Conjunctiva/sclera: Conjunctivae normal. Cardiovascular: Rate and Rhythm: Normal rate and regular rhythm. Pulmonary: Effort: Pulmonary effort is normal. Breath sounds: Normal breath sounds. Musculoskeletal: Left shoulder: Tenderness and bony tenderness present. No swelling. Decreased range of motion. Normal strength. Normal pulse. Comments: Forward flexion of left shoulder to 90 degrees. Abduction to 90 degrees. Tenderness over AC joint and left trapezius. Normal sensation left upper extremity. Normal strength. Skin: General: (more content not included)... Normal [facility] XR SHLDR >/=3V AP/CRISTIAN AP/OTH R LTon 03-26-2024 XR SHLDR >/=3V AP/CRISTIAN AP/OTHR LT * * *Final Report* * * DATE OF EXAM: Mar 26 2024 2:32PM WOX 5252 - XR SHLDR >/=3V AP/CRISTIAN AP/OTHR LT / PROCEDURE REASON: Acute pain of left shoulder * * * * Physician Interpretation * * * * CLINICAL INDICATION: Pain TECHNIQUE: 3 view radiographic study of the left shoulder COMPARISON: None FINDINGS: No acute fracture or dislocation identified. Acromioclavicular joint intact. No soft tissue calcifications identified. On one view only, there is a 2.6 cm linear radiopaque structure projecting in the soft tissues medial to the humerus, possibly external to the patient though clinical correlation requested. IMPRESSION: No radiographic evidence of acute osseous injury On one view only, there is a 2.6 cm linear radiopaque structure projecting in the soft tissues medial to the humerus, possibly external to the patient though clinical correlation requested Egg Buyer: [facility] Transcribe Date/Time: Mar 26 2024 2:32P Dictated by : JENNIFER NIEVES MD This examination was interpreted and the report reviewed and electronically signed by: JENNIFER NIEVES MD on Mar 26 2024 2:33PM EST [id number] Normal [facility] XR Shoulder - left 3 Viewson 03-26-2024 IMPRESSION: No radiographic evidence of acute osseous injury On one view only, there is a 2.6 cm linear radiopaque structure projecting in the soft tissues medial to the humerus, possibly external to the patient though clinical correlation requested Egg Buyer: [facility] Transcribe Date/Time: Mar 26 2024 2:32P Dictated by : JENNIFER NIEVES MD This examination was interpreted and the report reviewed and electronically signed by: JENNIFER NIEVES MD on Mar 26 2024 2:33PM EST DIVISION OF RADIOLOGY * * *Final Report* * * DATE OF EXAM: Mar 26 2024 2:32PM WOX 5252 - XR SHLDR >/=3V AP/CRISTIAN AP/OTHR LT / PROCEDURE REASON: Acute pain of left shoulder * * * * Physician Interpretation * * * * CLINICAL INDICATION: Pain TECHNIQUE: 3 view radiographic study of the left shoulder COMPARISON: None FINDINGS: No acute fracture or dislocation identified. Acromioclavicular joint intact. No soft tissue calcifications identified. On one view only, there is a 2.6 cm linear radiopaque structure projecting in the soft tissues medial to the humerus, possibly external to the patient though clinical correlation requested. DIVISION OF RADIOLOGY Provider, Ann Tomlinson - 03/26/2024 * * *Final Report* * * DATE OF EXAM: Mar 26 2024 2:32PM WOX 5252 - XR SHLDR >/=3V AP/CRISTIAN AP/OTHR LT / PROCEDURE REASON: Acute pain of left shoulder * * * * Physician Interpretation * * * * CLINICAL INDICATION: Pain TECHNIQUE: 3 view radiographic study of the left shoulder COMPARISON: None FINDINGS: No acute fracture or dislocation identified. Acromioclavicular joint intact. No soft tissue calcifications identified. On one view only, there is a 2.6 cm linear radiopaque structure projecting in the soft tissues medial to the humerus, possibly external to the patient though clinical correlation requested. IMPRESSION IMPRESSION: No radiographic evidence of acute osseous injury On one view only, there is a 2.6 cm linear radiopaque structure projecting in the soft tissues medial to the humerus, possibly external to the patient though clinical correlation requested Egg Buyer: [facility] Transcribe Date/Time: Mar 26 2024 2:32P Dictated by : JENNIFER NIEVES MD This examination was interpreted and the report reviewed and electronically signed by: JENNIFER NIEVES MD on Mar 26 2024 2:33PM EST [facility] Radiology Study observation (narrative) [facility] XR Shoulder - left 3 ViewsOr dered By: Ximena Provider on 03-26-2024 [facility] MR/BMS.BPon 03-23-2024 MR/BMS.BP [address], [address] [place] [id number] OFFICE VISIT Date of Service: 03/23/24 MR#: [id number] Acct: [id number] Name: STELLA COLLINS Rep #: [id number] : 1990 Provider: MARILYNN muniz Age/Sex: 33/F [place] [facility] [place] Status: Signed Intake Vital Signs 01/15/24 17:32 03/23/24 16:35 Height 5 ft 5 ft Weight: 206 lb 3.2 oz BMI 40.2 BP 177/118 H Respiration 18 Pulse 132 H Temp 98 F Pulse Oximetry (%) 99 BP Intake Visit Reasons: follow up Allergies No Known Drug Allergies Allergy (Verified 02/21/24 10:32) Other [facility] Medical History Abnormal endoscopy of upper gastrointestinal tract Wears glasses Depression Dietary restriction Heartburn Gastric reflux Smoker Urinary tract infection with hematuria COVID-19 Asthma Surgical History History of esophagogastroduodenosco py (EGD) History of wisdom tooth extraction History of carpal tunnel surgery ( 2017) History of Social History Smoking Status: Current every day smoker tobacco type: cigarettes alcohol intake: never substance use type: does not use what type of physical activity do you participate in: walking HPI History of Present Illness History provided by: patient HPI: Stella Collins is a 33 year old female patient presenting today for a follow up evaluation. Reports she was living with her parents and was kicked out so her and her kids had to live with her friend. Her friend had CPS called on her and then they had to follow with her for 2 months and she did not see her kids for 1 month. States her parents are trying to take custody of her children. Reports she has been having increased depression with this. Has been struggling to get out of bed. Has been missing work due to this. Admits to some passive SI. Denies plan or intent. Did have a metro voucher but it due to not being able to find housing that would accept this. Has not been having any increase in anxiety since last appointment. Denies panic attacks. Patient is currently living with her grandmother but is unable to bring her children there. Previous similar episode: Yes Age of first onset of symptoms: 21-30 years Review of Systems Constitutional Reports: change in weight; Denies: fever(s), chills or fatigue Eyes Denies: change in vision or blurry vision Ears, Nose, Mouth, Throat Denies: throat pain or neck pain Cardiovascular Reports: chest pain (with anxiety), palpitations (with anxiety) and dyspnea (with anxiety) Respiratory Reports: dyspnea (with anxiety); Denies: wheezing Gastrointestinal Denies: abdominal pain, nausea, vomiting, diarrhea or constipation Genitourinary Denies: dysuria, urinary frequency or urinary urgency Musculoskeletal Denies: back pain or neck pain Integumentary/Breast Denies: rash, pruritus or erythema Neurological Denies: headache(s) Psychiatric Reports: hopelessness, loss of interest, difficulty concentrating and suicidal ideation (passive); Denies: anxiety, panic attacks, change in sleep pattern, irritability, visual hallucinations, auditory hallucinations or homicidal ideation Endocrine Denies: polyuria, polydipsia or fatigue Hematologic/Lymphatic Denies: easy bruising Allergic/Immunologic Denies: wheezing Exam Mental Status Exam - Psych Appearance casually dressed, adequately groomed and no apparent distress Attitude cooperative Activity/Motor Behavior MSE activity/motor behavior finding no adventitious movements and appropriate eye contact Speech regular rate, regular volume and regular prosody Mood depressed Affect sad and tearful Thought Process linear, logical and coherent Thought Content no delusions and no hallucinations Suicidal Ideation passive; No intent and No plans Homicidal Ideation none Attention impaired (per patient self report) Concentration impaired (per patient self report) Sensorium/Orientation awake, alert and oriented x3 Memory/Cognition intact Insight good Judgement good Exam Constitutional Common normals: no acute distress, average body habitus and patient oriented x3 Neuro Common normals: patient oriented x3 Speech: speech normal Gait (neuro): normal gait Psych Psychiatry clinicians, please identify where your Mental Status Exam is documented: Mental Status Exam documented in the separate MSE Assessment Plan Assessment Plan (1) Anxiety: Plan: - Continue Buspirone 15mg TID - Continue Venlafaxine ER 75mg daily. - Continue to take Hydroxyzine 25mg TID PRN - Continue in therapy weekly - Take all medications as prescribed.??? Please avoid the use of alcohol or drugs.??? Attend all (more content not included)... Normal [facility] Orthopedic Visit Reporton Orthopedic Visit Report [facility] [address] [place] [id number] OFFICE VISIT Date of Service: 02/21/24 MR#: [id number] Acct: [id number] Name: STELLA COLLINS Rep #: [id number] : 1990 Provider: Dr. Karan arauz MD Age/Sex: 33/F [place] [facility] [place] Status: Signed Intake Vital Signs 01/15/24 17:32 Height 5 ft Intake Visit Reasons: LEFT WRIST Accompanied by: Self Is patient in pain?: No Allergies No Known Drug Allergies Allergy (Verified 02/21/24 10:32) Other Medications ???Medication ???Instructions ???Recorded ???Confirmed ???Type etonogestrel 68 mg subdermal 1 implant subdermal ONCE 07/20/21 02/21/24 History implant (Nexplanon) venlafaxine 75 mg capsule,extended 75 mg PO DAILY #90 caps 08/11/23 02/21/24 Rx release 24 hr propranolol 10 mg tablet 10 mg PO TID PRN anxiety #90 tabs 09/08/23 02/21/24 Rx brexpiprazole 1 mg tablet 1 mg PO DAILY #90 tabs 09/22/23 02/21/24 Rx buspirone 15 mg tablet 15 mg PO TID #270 tabs 09/22/23 02/21/24 Rx hydroxyzine HCl 25 mg tablet 25 mg PO TID PRN anxiety #90 tabs 09/22/23 02/21/24 Rx trazodone 50 mg tablet 50 mg PO QHS PRN insomnia #90 tabs 09/22/23 02/21/24 Rx albuterol sulfate 90 mcg/actuation 2 inh inhalation Q6H 12/19/23 02/21/24 History breath activated powder inhaler,sensor celecoxib 200 mg capsule 200 mg PO DAILY 12/19/23 02/21/24 History montelukast 10 mg tablet 10 mg PO DAILY 12/19/23 02/21/24 History (Singulair) pantoprazole 40 mg tablet,delayed 40 mg PO DAILY 12/19/23 02/21/24 History release PFSH Medical History Abnormal endoscopy of upper gastrointestinal tract Wears glasses Depression Dietary restriction Heartburn Gastric reflux Smoker Urinary tract infection with hematuria COVID-19 Asthma Surgical History History of esophagogastroduodenosco py (EGD) History of wisdom tooth extraction History of carpal tunnel surgery ( 2017) History of Social History Smoking Status: Current every day smoker tobacco type: cigarettes alcohol intake: never substance use type: does not use what type of physical activity do you participate in: walking HPI LEFT WRIST Details: This documentation accurately reflects the service provided and the decisions made by me, Dr. Karan Alberto MD 02/21/24 0955. Part of today???s visit was documented by [ ], acting as scribe. STELLA COLLINS is a 33 year old F here today for 6 weeks FU L ECTR. 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 Patient doing very well. Some very minor pillar pain as well as minor decrease sensation just on the radial border of the fourth digit otherwise normal in the rest of the hand. No concerns with the incision no drainage no redness or warmth. Coding Level of Care Code Global Post Op Diagnoses Left carpal tunnel syndrome G56.02 Assessment and Plan Assessment and Plan (1) Left carpal tunnel syndrome: Status: Acute Plan: STELLA COLLINS is a 33 year old F here today for 6 weeks FU L ECTR. 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 Sutures dissolved. Incision healed. Patient doing well some mild pillar pain they can return to full activities no restrictions and follow-up as needed the patient understands no further questions or concerns. Ortho Exam General General: Yes no acute distress Neurologic: Yes alert and Yes oriented x3 Psychologic: Yes reasonable and appropriate Right Wrist/Hand Skin/Wound: No Swelling and No Ecchymosis (mild) Left Wrist/Hand Skin/Wound: Yes CDI, Yes healed, No Swelling, No Ecchymosis (mild), Yes nail intact, Yes capillary refill normal and No erythema Left Wrist: Yes ROM-Extension 0-60, Yes ROM-Flexion 0-80, Yes ROM-Pronation 0-80 and Yes ROM- Supination 0-90 Motor: EPL: 5, FDP-2: 5, 1st Dorsal Interosseous: 5 and APB: 5 Sensation: Radial: I, Ulnar: I and Median: I WRIST: mild decr to radial border 4th digit. 02/21/24 1038 Date [facility] Signature: Date (if applicable) CC: [facility] CNCOon 01-17-2024 CNCO Letter Text Normal 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 Stella Contreras Dennis is a 33 year old female. PMH significant for ACTIVE PROBLEM LIST Obesity, Class Iii, Bmi 40-49.9 (Morbid Obesity) (Hcc) Pain in Right Knee Chronic Right-Sided Low Back Pain With Right-Sided Sciatica Carpal Tunnel Syndrome of Right Wrist Anxiety and Depression PCP: Isma Almanza MD Presents today regarding left arm swelling and left-sided chest wall swelling which started last Tuesday. She is status [facility] She presented to urgent care at [facility] 01/14/2024.Abeba Chase APRN.EQUIPMENT OPERATOR [employer] Note excerpted: Patient presents to express care triage with left arm swelling for 2-3 days. She had carpal tunnel release two weeks ago and returned to work at the two [employer]. Her hand started to swelling and she called her ortho doctor who told her to cut hours at work and elevate. She then noticed the past 2 days the swelling is going up past her elbow. Discussed with patient she may need an US to rule out a clot in the arm. Does not appear infected. Likely peripheral edema in the hand from gravity and using the arm more but shouldn't be up past her elbow. Recommended Er eval. Patient will go to [facility] ED. She reports she went to [facility] ER this date. Ddimer completed and negative, o US completed. No notes at the time of her visit today, will obtain. Review of outside records show that she was seen at [facility] on January 15, 2024 for left arm pain and swelling. Noted she had carpal tunnel surgery 2 weeks prior. D-dimer was negative. She had left arm pain and swelling due to noncompliance with elevation of her arm. She was advised to elevate and ice. No concerning findings on exam. Discharged to home and advised to follow up with Dr. Alberto. Today notes left upper arm pain and swelling, left upper chest wall swelling. No pitting edema, no decrease in ROM, no red streaking, warmth or cords. Breathing easily on room air, needs refill of asthma medications. Surgical incision is healing well with no redness, warmth or drainage. No report of headache, chest pain, palpitations, dyspnea, peripheral edema, orthopnea, fatigue, or PND.Last 3 Encounter BP Readings: Date: BP: 01/17/2024 134/90 12/14/2023 112/70 10/14/2023 116/72 Review of Systems Constitutional: Negative. HENT: Negative. Musculoskeletal: Positive for arthralgias. Objective BP 134/90 Pulse (!) 125 Resp 16 Wt 93.9 kg (207 lb 0.2 oz) LMP 07/15/2020 BMI 39.11 kg/m? Physical Exam Vitals and nursing note reviewed. Constitutional: Appearance: Normal appearance. HENT: Head: Normocephalic and atraumatic. Mouth/Throat: Lips: [place]. Eyes: Conjunctiva/sclera: Conjunctivae normal. Cardiovascular: Rate and Rhythm: Normal rate and regular rhythm. Heart sounds: Normal heart sounds. Pulmonary: Effort: Pulmonary effort is normal. Breath sounds: Normal breath sounds. Musculoskeletal: Comments: some swelling at bicep level/upper arm, lower arm without swelling, well healed incision site, some swelling at left side chest wall, diffuse, no crepitus, normal breath sounds Skin: General: Skin is warm and dry. Neurological: General: No focal deficit present. Mental Status: She is alert and oriented to person, place, and time. ALLERGIES No Known Allergies Medication celecoxib (CELEBREX) 200 mg capsule Take 1 capsule by mouth once daily. propranolol (INDERAL) 10 mg tablet Take 10 mg by mouth three times a day as needed. REXULTI 0.5 mg tablet Take 0.5 mg by mouth once daily. hydrOXYzine HCl (ATARAX) 25 mg tablet Take 1 tablet by mouth three times a day as needed for anxiety. venlafaxine ER (EFFEXOR XR) 37.5 mg 24 hr capsule Take 1 capsule by mouth once daily. (Patient taking differently: Take 75 mg by mouth once daily.) pantoprazole DR (PROTONIX) 40 mg tablet Take 1 tablet by mouth once daily. busPIRone (BUSPAR) 10 mg tablet Take 1 tablet by mouth three times daily. (Patient taking differently: Take 15 mg by mouth two times a day.) etonogestrel (NEXPLANON) subdermal implant 68 mg 1 Each by SUBDERMAL route as directed. albuterol HFA (VENTOLIN HFA) 90 mcg/actuation inhaler Inhale 2 Puffs as instructed every 4 hours as needed for wheezing/shortness (more content not included)... Normal [facility] No Panel Informationon 01-16 [facility] DVT UPPER LTon 01-17-2024 DVT UPPER LT * * *Final Report* * * DATE OF EXAM: Jan 17 2024 5:45PM U 1003 - US DVT UPPER LT / PROCEDURE REASON: Left arm swelling * * * * Physician Interpretation * * * * EXAMINATION: LEFT UPPER EXTREMITY DEEP VENOUS ULTRASOUND WITH DOPPLER IMAGING CLINICAL HISTORY: Upper extremity swelling TECHNIQUE: Grayscale with compression maneuvers where accessible, color and spectral Doppler of the left internal jugular, subclavian, and axillary veins was performed. Grayscale with compression maneuvers of the left brachial, basilic and cephalic veins was also performed. The contralateral internal jugular and distal subclavian veins were imaged for comparison. Images were obtained and stored in a permanent archive. MQ: UEL_1 COMPARISON: None RESULT: LEFT UPPER EXTREMITY DEEP VEINS Internal Jugular vein: Normal compression, normal spontaneous flow. Subclavian vein: Normal, spontaneous flow. Axillary vein: Normal compression, normal spontaneous flow. Brachial vein: Normal compression SUPERFICIAL VEINS Basilic vein: Normal compression. Cephalic vein: Normal compression. RIGHT UPPER EXTREMITY (FOR COMPARISON) DEEP VEINS Internal Jugular and Distal Subclavian veins: Normal compression, normal spontaneous flow. IMPRESSION: 1. Negative study for DVT in the left upper extremity. 2. Negative study for superficial thrombophlebitis in the imaged segments of the left upper extremity. Egg Buyer: VINNIE Transcribe Date/Time: Jan 17 2024 5:56P Dictated by : OCTAVIO POWER MD This examination was interpreted and the report reviewed and electronically signed by: OCTAVIO POWER MD on Jan 17 2024 5:57PM EST [id number] Normal [facility] US Upper extremity vein - le fton 01-17-2024 IMPRESSION: 1. Negative study for DVT in the left upper extremity. 2. Negative study for superficial thrombophlebitis in the imaged segments of the left upper extremity. Egg Buyer: VINNIE Transcribe Date/Time: Jan 17 2024 5:56P Dictated by : OCTAVIO POWER MD This examination was interpreted and the report reviewed and electronically signed by: OCTAVIO POWER MD on Jan 17 2024 5:57PM EST [facility] * * *Final Report* * * DATE OF EXAM: Jan 17 2024 5:45PM LDU 1003 - US DVT UPPER LT / PROCEDURE REASON: Left arm swelling * * * * Physician Interpretation * * * * EXAMINATION: LEFT UPPER EXTREMITY DEEP VENOUS ULTRASOUND WITH DOPPLER IMAGING CLINICAL HISTORY: Upper extremity swelling TECHNIQUE: Grayscale with compression maneuvers where accessible, color and spectral Doppler of the left internal jugular, subclavian, and axillary veins was performed. Grayscale with compression maneuvers of the left brachial, basilic and cephalic veins was also performed. The contralateral internal jugular and distal subclavian veins were imaged for comparison. Images were obtained and stored in a permanent archive. MQ: USUEL_1 COMPARISON: None RESULT: LEFT UPPER EXTREMITY DEEP VEINS Internal Jugular vein: Normal compression, normal spontaneous flow. Subclavian vein: Normal, spontaneous flow. Axillary vein: Normal compression, normal spontaneous flow. Brachial vein: Normal compression SUPERFICIAL VEINS Basilic vein: Normal compression. Cephalic vein: Normal compression. RIGHT UPPER EXTREMITY (FOR COMPARISON) DEEP VEINS Internal Jugular and Distal Subclavian veins: Normal compression, normal spontaneous flow. [facility] Provider, [facility] - 01/17/2024 * * *Final Report* * * DATE OF EXAM: Jan 17 2024 5:45PM LDU 1003 - US DVT UPPER LT / PROCEDURE REASON: Left arm swelling * * * * Physician Interpretation * * * * EXAMINATION: LEFT UPPER EXTREMITY DEEP VENOUS ULTRASOUND WITH DOPPLER IMAGING CLINICAL HISTORY: Upper extremity swelling TECHNIQUE: Grayscale with compression maneuvers where accessible, color and spectral Doppler of the left internal jugular, subclavian, and axillary veins was performed. Grayscale with compression maneuvers of the left brachial, basilic and cephalic veins was also performed. The contralateral internal jugular and distal subclavian veins were imaged for comparison. Images were obtained and stored in a permanent archive. MQ: USUEL_1 COMPARISON: None RESULT: LEFT UPPER EXTREMITY DEEP VEINS Internal Jugular vein: Normal compression, normal spontaneous flow. Subclavian vein: Normal, spontaneous flow. Axillary vein: Normal compression, normal spontaneous flow. Brachial vein: Normal compression SUPERFICIAL VEINS Basilic vein: Normal compression. Cephalic vein: Normal compression. RIGHT UPPER EXTREMITY (FOR COMPARISON) DEEP VEINS Internal Jugular and Distal Subclavian veins: Normal compression, normal spontaneous flow. IMPRESSION IMPRESSION: 1. Negative study for DVT in the left upper extremity. 2. Negative study for superficial thrombophlebitis in the imaged segments of the left upper extremity. Egg Buyer: VINNIE Transcribe Date/Time: Jan 17 2024 5:56P Dictated by : OCTAVIO POWER MD This examination was interpreted and the report reviewed and electronically signed by: OCTAVIO POWER MD on Jan 17 2024 5:57PM EST [facility] Radiology Study observation (narrative) [facility] XR CHEST 2V FRONTAL/LATon XR CHEST 2V FRONTAL/LAT * * *Final Report* * * DATE OF EXAM: Jan 17 2024 12:55PM [id number] - XR CHEST 2V FRONTAL/LAT / PROCEDURE REASON: multiple diagnoses * * * * Physician Interpretation * * * * EXAMINATION: CHEST RADIOGRAPH (2 VIEW FRONTAL and LATERAL) CLINICAL HISTORY: Left arm swelling SOB (shortness of breath) MQ: XC2_6 EXAM DATE/TIME: 01/17/2024 12:55 PM COMPARISON: Chest x-ray dated 11/29/2022 RESULT: Lines, tubes, and devices: None. Lungs and pleura: No consolidation. No lung mass. No pleural effusion. No pneumothorax. Cardiomediastinal silhouette: Normal cardiomediastinal silhouette. Bones and soft tissues: Degenerative changes are present within the thoracic spine. IMPRESSION: No acute radiographic abnormality. Egg Buyer: [facility] Transcribe Date/Time: Jan 17 2024 12:58P Dictated by : JENNIFER NIEVES MD This examination was interpreted and the report reviewed and electronically signed by: JENNIFER NIEVES MD on Jan 17 2024 12:58PM EST [id number] Normal [facility] XR Chest PA and Lateralon IMPRESSION: No acute radiographic abnormality. Egg Buyer: [facility] Transcribe Date/Time: Jan 17 2024 12:58P Dictated by : JENNIFER NIEVES MD This examination was interpreted and the report reviewed and electronically signed by: JENNFIER NIEVES MD on Jan 17 2024 12:58PM EST DIVISION OF RADIOLOGY * * *Final Report* * * DATE OF EXAM: Jan 17 2024 12:55PM [id number] - XR CHEST 2V FRONTAL/LAT / PROCEDURE REASON: multiple diagnoses * * * * Physician Interpretation * * * * EXAMINATION: CHEST RADIOGRAPH (2 VIEW FRONTAL & LATERAL) CLINICAL HISTORY: Left arm swelling SOB (shortness of breath) MQ: XC2_6 EXAM DATE/TIME: 01/17/2024 12:55 PM COMPARISON: Chest x-ray dated 11/29/2022 RESULT: Lines, tubes, and devices: None. Lungs and pleura: No consolidation. No lung mass. No pleural effusion. No pneumothorax. Cardiomediastinal silhouette: Normal cardiomediastinal silhouette. Bones and soft tissues: Degenerative changes are present within the thoracic spine. DIVISION OF RADIOLOGY Provider, [facility] - 01/17/2024 * * *Final Report* * * DATE OF EXAM: Jan 17 2024 12:55PM WOX [id number] - XR CHEST 2V FRONTAL/LAT / PROCEDURE REASON: multiple diagnoses * * * * Physician Interpretation * * * * EXAMINATION: CHEST RADIOGRAPH (2 VIEW FRONTAL & LATERAL) CLINICAL HISTORY: Left arm swelling SOB (shortness of breath) MQ: XC2_6 EXAM DATE/TIME: 01/17/2024 12:55 PM COMPARISON: Chest x-ray dated 11/29/2022 RESULT: Lines, tubes, and devices: None. Lungs and pleura: No consolidation. No lung mass. No pleural effusion. No pneumothorax. Cardiomediastinal silhouette: Normal cardiomediastinal silhouette. Bones and soft tissues: Degenerative changes are present within the thoracic spine. IMPRESSION IMPRESSION: No acute radiographic abnormality. Egg Buyer: [facility] Transcribe Date/Time: Jan 17 2024 12:58P Dictated by : JENNIFER NIEVES MD This examination was interpreted and the report reviewed and electronically signed by: JENNIFER INEVES MD on Jan 17 2024 12:58PM EST [facility] Radiology Study observation (narrative) [facility] D-Dimer Quantitative (DVT/PE )on 01-15-2024 D-DIMER QUANT 0.27 FEU/ug/m Normal 0.27-0.49 [facility] Comment on above: Result Comment: NORM AL D-Dimer level (<0.50) indicates no DVT or PE. Performed By: #### L [id number] #### [facility] [address] [place], [address] Emergency Department Summary on 01-15-2024 Emergency Department Summary [facility] Medical Records Department [address] [place] [address] Emergency Department Summary 01/15/24 MR#: [id number] Acct: [id number] Name: STELLA COLLINS Rep #: [id number] : 1990 33 From: Con Landin MD PCP: Dr. Isma Almanza MD Status:DEP ER Location: ED HPI History of Present Illness Chief Complaint: Upper Extremity Injury Narrative Narrative: 33-year-old [id number] female presents with left arm pain and swelling. She had left carpal tunnel surgery by Dr. Alberto 2 weeks ago. Since then she has had some swelling in the hand but feels like it is worse over the last 3 days and she is also having some pain in the upper arm now. She has no weakness or numbness or tingling. She denies issues with the incision site healing or any type of drainage or fever or chills. [facility] Medical History Abnormal endoscopy of upper gastrointestinal tract Wears glasses Depression Dietary restriction Heartburn Gastric reflux Smoker Urinary tract infection with hematuria COVID-19 Asthma Home Medications ???Medication ???Instructions ???Recorded ???Last Taken ???Type etonogestrel 68 mg subdermal 1 implant subdermal ONCE 07/20/21 12/28/23 History implant (Nexplanon) venlafaxine 75 mg capsule,extended 75 mg PO DAILY #90 caps 08/11/23 12/27/23 Rx release 24 hr propranolol 10 mg tablet 10 mg PO TID PRN anxiety #90 tabs 09/08/23 12/27/23 Rx brexpiprazole 1 mg tablet 1 mg PO DAILY #90 tabs 09/22/23 12/27/23 Rx buspirone 15 mg tablet 15 mg PO TID #270 tabs 09/22/23 12/27/23 Rx hydroxyzine HCl 25 mg tablet 25 mg PO TID PRN anxiety #90 tabs 09/22/23 Unknown Rx trazodone 50 mg tablet 50 mg PO QHS PRN insomnia #90 tabs 09/22/23 12/27/23 Rx albuterol sulfate 90 mcg/actuation 2 inh inhalation Q6H 12/19/23 Unknown History breath activated powder inhaler,sensor celecoxib 200 mg capsule 200 mg PO DAILY 12/19/23 12/27/23 History montelukast 10 mg tablet 10 mg PO DAILY 12/19/23 12/27/23 History (Singulair) pantoprazole 40 mg tablet,delayed 40 mg PO DAILY 12/19/23 12/27/23 History release Allergy/AdvReac Type Severity Reaction Status Date / Time No Known Drug Allergies Allergy Other Verified 01/15/24 17:33 Surgical History History of esophagogastroduodenosco py (EGD) History of wisdom tooth extraction History of carpal tunnel surgery ( 2016) History of Social History Smoking Status: Current every day smoker tobacco type: cigarettes alcohol intake: never substance use type: does not use what type of physical activity do you participate in: walking ROS ROS ED ROS Narrative Constitutional: Negative for fever, chills, malaise. CVS: Negative for chest pain. Respiratory: Negative for shortness of breath. Neuro: Negative for motor/sensory dysfunction. EXAM Physical Exam Narrative Exam Narrative: CONST: Patient sitting in no acute distress. EYES: Normal inspection. NECK: Normal inspection. RESP: No respiratory distress, CTAB. CVS: Regular rate and rhythm, no murmur, no gallop. SKIN: Color normal, no rash, warm, dry, intact. EXTREMITIES: Left anterior wrist carpal tunnel incision healing well with no dehiscence or erythema fluctuance or crepitus. No drainage. Mild swelling of the hand. No appreciable swelling or as ymmetry of the upper arms or forearms. Full range of motion all joints, normal motor and sensory function in median respirations, 2+ radial pulses. NEURO: Alert and answering questions appropriately. PSYCH: Normal affect. Const Vital Signs: 01/15/24 17:32 Temperature 98 F Temperature Source Oral Pulse Rate 132 H Respiratory Rate 18 Blood Pressure 177/118 H Blood Pressure Mean 137 Pulse Ox 99 Oxygen Delivery Method Room Air MDM MDM MDM Narrative Medical decision making narrative: I have personally performed a face to face assessment of the patient and have reviewed the TALI Note. I performed a substantive portion of the visit including all aspects of the following. My katz findings include: History is remarkable for carpal tunnel surgery December [address] Alberto. She has had swelling of her hand. She states she is back at work. 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 She also complains of swelling and pain in her forearm and arm. There is no history of PE or DVT. She has not been elevating as she was instructed. She contacted the doctor end of last week and told to elevate and ice. She states she did the best she could. Exam is swelling of the digits, hand and forearm. There is pain medial left arm. There may be slight swelling of the ar (more content not included)... [facility] CNOVon 01-14-2024 CNOV Office Visit ([facility] ) -------- STELLA COLLINS ([id number]) 1990 F Date Time Provider Department 01/14/24 2:45 PM [facility] During your visit today, we recorded the following information about you: Talon Espinoza PA-C 01/14/2024 2:53 PM Signed Patient presents to express care triage with left arm swelling for 2-3 days. She had carpal tunnel release two weeks ago and returned to work at the [employer]. Her hand started to swelling and she called her ortho doctor who told her to cut hours at work and elevate. She then noticed the past 2 days the swelling is going up past her elbow. Discussed with patient she may need an US to rule out a clot in the arm. Does not appear infected. Likely peripheral edema in the hand from gravity and using the arm more but shouldn't be up past her elbow. Recommended Er eval. Patient will go to [facility] ED. Allergies As of Date: 01/14/2024 (No Known Allergies) Date Reviewed: 12/14/2023 Reviewed by: Taisha Lopez MA - Fully Assessed Primary Visit Diagnosis:Left arm swelling [M79.89] Prescriptions as of 01/14/2024 - celecoxib (CELEBREX) 200 mg capsule Take 1 capsule by mouth once daily. - propranolol (INDERAL) 10 mg tablet Take 10 mg by mouth three times a day as needed. - REXULTI 0.5 mg tablet Take 0.5 mg by mouth once daily. - ondansetron orally disintegrating (ZOFRAN ODT) 4 mg disintegrating tablet Take 1 tablet by mouth every 8 hours as needed for nausea/vomiting. - hydrOXYzine HCl (ATARAX) 25 mg tablet Take 1 tablet by mouth three times a day as needed for anxiety. - venlafaxine ER (EFFEXOR XR) 37.5 mg 24 hr capsule Take 1 capsule by mouth once daily. - pantoprazole DR (PROTONIX) 40 mg tablet Take 1 tablet by mouth once daily. - montelukast (SINGULAIR) 10 mg tablet Take 1 tablet by mouth daily at bedtime. - busPIRone (BUSPAR) 10 mg tablet Take 1 tablet by mouth three times daily. - albuterol HFA (VENTOLIN HFA) 90 mcg/actuation inhaler Inhale 2 Puffs as instructed every 4 hours as needed for wheezing/shortness of breath. - fluticasone-salmeterol (ADVAIR DISKUS) 250-50 mcg/dose inhaler Inhale 1 Puff as instructed twice daily. RINSE AND GARGLE MOUTH WITH WATER AFTER EACH USE. - etonogestrel (NEXPLANON) subdermal implant 68 mg 1 Each by SUBDERMAL route as directed. Meds Comments as of 05/27/2022: x Problem List As Of Date 01/14/2024 Noted Resolved Pain in joint, forearm [M25.539] 09/12/2008 08/15/2012 Supervision of other high-risk [O09.8*12/01/2009 06/05/2010 Nausea with vomiting [R11.2] 04/20/2010 08/15/2012 Headache [R51] 04/20/2010 08/15/2012 Surveillance of previously prescribed intrauter*08/04/2010 08/15/2012 Pelvic pain in female [R10.2] 10/28/2011 08/15/2012 Tobacco use during , antepartum [O99.3*03/12/2013 08/09/2019 Family history of congenital heart defect [Z82.*03/12/2013 12/19/2013 Previous section [Z98.891] 03/12/2013 08/09/2019 Obesity, Class III, BMI 40-49.9 (morbid obesity*07/02/2013 Pain in right knee [M25.561] 01/31/2015 Chronic right-sided low back pain with right-si*11/11/2015 Carpal tunnel syndrome of right wrist [G56.01] 09/16/2016 Obesity in [O99.210] 11/16/2018 08/09/2019 Patient request for diagnostic testing [Z01.89] 11/16/2018 08/09/2019 Anxiety and depression [F41.9, F32.A] 09/07/2021 Encounter Status:Closed by TALON ESPINOZA on 01/14/24 [facility] Orthopedic Visit Reporton Orthopedic Visit Report [facility] [address] [place] [address] OFFICE VISIT Date of Service: 01/10/24 MR#: [id number] Acct: [id number] Name: STELLA COLLINS Rep #: [id number] : 1990 Provider: Dr. Karan arauz MD Age/Sex: 33/F [place] [facility] Status: Signed Intake Vital Signs 09/22/23 10:09 12/28/23 07:54 Height 5 ft 5 ft Intake Visit Reasons: left wrist Accompanied by: Self Is patient in pain?: Yes Pain scale (1-10): 3 Allergies No Known Drug Allergies Allergy (Verified 01/10/24 10:33) Other Medications ???Medication ???Instructions ???Recorded ???Confirmed ???Type etonogestrel 68 mg subdermal 1 implant subdermal ONCE 07/20/21 01/10/24 History implant (Nexplanon) venlafaxine 75 mg capsule,extended 75 mg PO DAILY #90 caps 08/11/23 01/10/24 Rx release 24 hr propranolol 10 mg tablet 10 mg PO TID PRN anxiety #90 tabs 09/08/23 01/10/24 Rx brexpiprazole 1 mg tablet 1 mg PO DAILY #90 tabs 09/22/23 01/10/24 Rx buspirone 15 mg tablet 15 mg PO TID #270 tabs 09/22/23 01/10/24 Rx hydroxyzine HCl 25 mg tablet 25 mg PO TID PRN anxiety #90 tabs 09/22/23 01/10/24 Rx trazodone 50 mg tablet 50 mg PO QHS PRN insomnia #90 tabs 09/22/23 01/10/24 Rx albuterol sulfate 90 mcg/actuation 2 inh inhalation Q6H 12/19/23 01/10/24 History breath activated powder inhaler,sensor celecoxib 200 mg capsule 200 mg PO DAILY 12/19/23 01/10/24 History montelukast 10 mg tablet 10 mg PO DAILY 12/19/23 01/10/24 History (Singulair) pantoprazole 40 mg tablet,delayed 40 mg PO DAILY 12/19/23 01/10/24 History release PFSH Medical History Abnormal endoscopy of upper gastrointestinal tract Wears glasses Depression Dietary restriction Heartburn Gastric reflux Smoker Urinary tract infection with hematuria COVID-19 Asthma Surgical History History of esophagogastroduodenosco py (EGD) History of wisdom tooth extraction History of carpal tunnel surgery ( 2017) History of Social History Smoking Status: Current every day smoker tobacco type: cigarettes alcohol intake: never substance use type: does not use what type of physical activity do you participate in: walking HPI left wrist Details: This documentation accurately reflects the service provided and the decisions made by me, Dr. Karan Alberto MD 01/10/24 1030. Part of today???s visit was documented by [ ], acting as scribe. STELLA COLLINS is a 33 year old F here today for 2 weeks FU L ECTR. Patient doing well pain is settling down. Has some minor swelling and pulling in the thumb able to make a fist. 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 Coding Level of Care Code Global Post Op Diagnoses Left carpal tunnel syndrome G56.02 Assessment and Plan Assessment and Plan (1) Left carpal tunnel syndrome: Status: Acute Plan: STELLA COLLINS is a 33 year old F here today for 2 weeks FU L ECTR. Patient doing well. Recommend okay to keep the incision clean and dry okay to shower over top of it okay to keep it open to air. Recommend no heavy lifting or gripping for the next 4 weeks follow-up at that point. I put a note in the chart for the patient they understood no further questions or concerns. Ortho Exam General General: Yes no acute distress Neurologic: Yes alert and Yes oriented x3 Psychologic: Yes reasonable and appropriate Right Wrist/Hand Skin/Wound: No Swelling and Yes Ecchymosis (mild) Left Wrist/Hand Skin/Wound: Yes CDI, Yes healed, No Swelling, Yes Ecchymosis (mild), Yes nail intact, Yes capillary refill normal and No erythema Left Wrist: Yes ROM-Extension 0-60, Yes ROM-Flexion 0-80, Yes ROM-Pronation 0-80 and Yes ROM- Supination 0-90 Motor: EPL: 4, FDP-2: 4, 1st Dorsal Interosseous: 4 and APB: 4 Sensation: Radial: I, Ulnar: I and Median: I WRIST: no change to sensation ring finger, but better in the other median nerve distribution 01/10/24 1054 Date Karan Alberto MD Cosign Signature: Date (if applicable) CC: [facility] Orthopedic Visit Reporton Orthopedic Visit Report [facility] [address] [place] [address] [address] [place] [address] OFFICE VISIT Date of Service: 12/30/23 MR#: [id number] Acct: [id number] Name: STELLA COLLINS Rep #: [id number] : 1990 Provider: Dr. Karan arauz MD Age/Sex: 33/F [place] [facility] [place] Status: Signed Intake Vital Signs 12/28/23 07:54 Height 5 ft Intake Visit Reasons: LEFT WRIST Accompanied by: Self Is patient in pain?: Yes Pain scale (1-10): 3 Allergies No Known Drug Allergies Allergy (Verified 12/30/23 11:14) Other Medications ???Medication ???Instructions ???Recorded ???Confirmed ???Type etonogestrel 68 mg subdermal 1 implant subdermal ONCE 07/20/21 12/30/23 History implant (Nexplanon) venlafaxine 75 mg capsule,extended 75 mg PO DAILY #90 caps 08/11/23 12/30/23 Rx release 24 hr propranolol 10 mg tablet 10 mg PO TID PRN anxiety #90 tabs 09/08/23 12/30/23 Rx brexpiprazole 1 mg tablet 1 mg PO DAILY #90 tabs 09/22/23 12/30/23 Rx buspirone 15 mg tablet 15 mg PO TID #270 tabs 09/22/23 12/30/23 Rx hydroxyzine HCl 25 mg tablet 25 mg PO TID PRN anxiety #90 tabs 09/22/23 12/30/23 Rx trazodone 50 mg tablet 50 mg PO QHS PRN insomnia #90 tabs 09/22/23 12/30/23 Rx albuterol sulfate 90 mcg/actuation 2 inh inhalation Q6H 12/19/23 12/30/23 History breath activated powder inhaler,sensor celecoxib 200 mg capsule 200 mg PO DAILY 12/19/23 12/30/23 History montelukast 10 mg tablet 10 mg PO DAILY 12/19/23 12/30/23 History (Singulair) pantoprazole 40 mg tablet,delayed 40 mg PO DAILY 12/19/23 12/30/23 History release oxycodone-acetaminophen 5 mg-325 1 tab PO Q4-6H PRN pain 3 days #14 12/29/23 12/30/23 Rx mg tablet (Percocet) tabs PFSH Medical History Abnormal endoscopy of upper gastrointestinal tract Wears glasses Depression Dietary restriction Heartburn Gastric reflux Smoker Urinary tract infection with hematuria COVID-19 Asthma Surgical History History of esophagogastroduodenosco py (EGD) History of wisdom tooth extraction History of carpal tunnel surgery ( 2017) History of Social History Smoking Status: Current every day smoker tobacco type: cigarettes alcohol intake: never substance use type: does not use what type of physical activity do you participate in: walking HPI LEFT WRIST Details: This documentation accurately reflects the service provided and the decisions made by me, Dr. Karan Alberto MD 12/30/23 1024. Part of today???s visit was documented by [ ], acting as scribe. STELLA COLLINS is a 33 year old F here today for POD 2 L ECTR. complaints of pain and I did send in oral narcotics yesterday. Doing well otherwise. some mild swelling. Coding Level of Care Code Global Post Op Diagnoses Left carpal tunnel syndrome G56.02 Assessment and Plan Assessment and Plan (1) Left carpal tunnel syndrome: Status: Acute Plan: STELLA COLLINS is a 33 year old F here today for POD 2 L ECTR. complaints of pain and I did send in oral narcotics yesterday. Doing well. change drsg q1-2 days. keep dry. fu 2 weeks. Ortho Exam General General: Yes no acute distress Neurologic: Yes alert and Yes oriented x3 Psychologic: Yes reasonable and appropriate Right Wrist/Hand Skin/Wound: Yes Swelling and No Ecchymosis Left Wrist/Hand Skin/Wound: Yes CDI, Yes healing, Yes wound(s) cleaned with betadine/alcohol and sterile water, Yes wound(s) manually debrided then Saline/Betadine/, Yes Swelling, No Ecchymosis, Yes nail intact, Yes capillary refill normal and No erythema Motor: EPL: 4, FDP-2: 4, 1st Dorsal Interosseous: 4 and APB: 4 Sensation: Radial: I, Ulnar: I and Median: D WRIST: drsg changed. 12/30/23 1122 Date Karan Alberto MD Cosigner Signature: Date (if applicable) CC: [facility] Discharge Instructionon 12-12 Discharge Instruction [facility] Medical Records Department [address] [place] [address] Instructions for Home/Discharge Instructions 12/28/23 0910 MR#: [id number] Acct: [id number] Name: STELLA COLLINS Rep #: [id number] : 1990 33 From: Karan Alberto MD PCP: Dr. Isma Almanza MD Status:REG [facility] Discharge Instructions Diet Discharge Diet: No restrictions Activity Ice area for (Minutes): 10 Lifting Restrictions: no lifting over 1 pound Keep extremity elevated above heart level: Operative Extremity Additional Activity Instructions:: ok for gentle hand finger wrist ROM Dressing / Incision Call your doctor if your incision/area has: Continuous Slow Oozing, Sudden Increased Bleeding, Increased Pain/ Swelling, Increased Redness, Foul Smelling Discharge and Swelling at the incision site Call your doctor if you observe: Fever of 101 or Higher, Coldness, Increased Pain and Numbness or Tingling Remove Dressing in: leave in place till F/U Cleanse incision/area with: Do not get Incision Wet Follow Up Care Please Follow Up With: Karan Alberto MD When: 2 days Test Results: Test results from this visit will be discussed in further detail at your follow-up appointment, if applicable. Discharge Plan Admission Attending Provider: Karan Alberto Primary Care Provider: Isma Almanza Instructions Print Language: Persian Discharge Orders/Prescriptions Prescriptions: No Action Nexplanon 68 mg implant 1 implant subdermal ONCE Rx Instructions: as a single dose venlafaxine 75 mg capsule,extended release 24hr 75 mg PO DAILY Qty: 90 1RF trazodone 50 mg tablet 50 mg PO QHS PRN (Reason: insomnia) Qty: 90 1RF brexpiprazole 1 mg tablet 1 mg PO DAILY Qty: 90 1RF buspirone 15 mg tablet 15 mg PO TID Qty: 270 1RF hydroxyzine HCl 25 mg tablet 25 mg PO TID PRN (Reason: anxiety) Qty: 90 1RF celecoxib 200 mg capsule 200 mg PO DAILY pantoprazole 40 mg tablet,delayed release (DR/EC) 40 mg PO DAILY montelukast [Singulair] 10 mg tablet 10 mg PO DAILY albuterol sulfate 90 mcg/actuation aero powdr breath act w/sensor 2 inh inhalation Q6H propranolol 10 mg tablet 10 mg PO TID PRN (Reason: anxiety) Qty: 90 0RF Referrals / Follow Up: Isma Almanza MD [Primary Care Provider] - Karan Alberto MD [Med Staff - Active Staff] - Disposition Disposition (needs filled in before D/C Order can be placed): Home, Self Care 12/28/23910 Karan Alberto MD CC: Dr. Isma Almanza MD Signed [facility] MR/POSTOP.[facility] 12-28-2023 MR/POSTOP.[facility] Medical Records Department [address] [place] [address] Anesthesia Postop Eval I 12/28/23911 MR#: [id number] Acct: [id number] Name: STELLA COLLINS Rep #: [id number] : 1990 33 From: Betty Nugent PCP: Dr. Isma Almanza MD Status:REG [facility] Y Race: C Location: [place] [address] Anesthesia: Postop Eval I Current Vital Signs Temperature: 97.8 F Pulse Rate: 123 Blood Pressure: 104/69 Respiratory Rate: 20 Pulse Ox: 97 Assessment Airway patent: Yes Spontaneous unlabored respirations: Yes nausea: No Vomiting: No Anesthesia Complication: No Fluid Hydration Crystalloid volume administer (ml): 40 Total IV fluid infused: 40 Progress Note Anesthesia document: Postop Eval 1 completed: Yes 12/28/23912 Date Betty Becerril Signature: Date CC: Signed [facility] [id number] 12-28-2023 MR/POST[address] Medical Records Department [address] [place] [address] Anesthesia Postop Eval II 12/28/23923 MR#: [id number] Acct: [id number] Name: STELLA COLLINS Rep #: [id number] : 1990 33 From: Paddy Perez MD PCP: Dr. Isma Almanza MD Status:REG [facility] Y Race: C Location: [place] [address] Anesthesia Postop Eval I Sum Postop Eval Completion status Anesthesia document: Postop Eval 1 completed: Yes Anesthesia Postop Eval I Summary Anesthesia Postop Eval I Summary: Anesthesia Postop Eval I: Assessment Summary Airway patent Yes 12/28/23 09:12 CRISIS SPECIALIST.CSIR Spontaneous unlabored Yes 12/28/23 09:12 CRISIS SPECIALIST.CSIR respirations Mental status nausea No 12/28/23 09:12 CRISIS SPECIALIST.CSIR Vomiting No 12/28/23 09:12 CRISIS SPECIALIST.CSIR Anesthesia Postop Eval I: Fluid Summary Crystalloid volume administer 40 12/28/23 09:12 CRISIS SPECIALIST.CSIR (ml) Colloids volume administered ( ml) Blood Product volume administered (ml) Total IV fluid infused 40 12/28/23 09:12 CRISIS SPECIALIST.CSIR Anesthesia Postop Eval I: Summary Notes Anesthesia Complication No 12/28/23 09:12 CRISIS SPECIALIST.CSIR Anesthesia Complication Comment: Post-operative progress note Anesthesia: Postop Eval II Evaluation Mental status: Awake Pain Level: 0 nausea: No Vomiting: No 12/28/23923 Date Paddy Perez MD Cosigner Signature: Date CC: Signed [facility] Operative Reporton 4 Operative Report [facility] Medical Records Department [address] [place] [address] Operative Report 12/28/23906 MR#: [id number] Acct: [id number] Name: STELLA COLLINS Rep #: [id number] : 1990 33 From: Karan Alberto MD PCP: Dr. Isma Almanza MD Status:[facility] Location: [place] [address] Problems Associated Problem List Diagnoses (1) Left carpal tunnel syndrome: Report of Operation Date of Procedure: 12/28/23 Pre-Operative Diagnosis: Left carpal tunnel syndrome Post-Operative Diagnosis: same Surgery/Procedure Performed:: L endoscopic carpal tunnel release Description of Surgical Findings:: Surgeon: Karan Alberto Type of Anesthesia: Local MAC Anesthesiologist: Paddy Perez Estimated Blood Loss (mL): 10 Description of Procedure: Patient brought to the operating room theater. Placed upon on the table. General anesthesia induced by the anesthetic team. Patient placed supine on the table all bony prominences padded. SCDs on the legs. Bed turned 90 degrees. Hand table used. Tourniquet applied properly padded to the upper extremity. Upper extremity prepped and draped in the usual sterile fashion with chlorhexidine-based prep solution allowing over 3 minutes drying time prior to draping. Preoperative timeout performed to confirm the site patient and the surgery. I used the [employer] [place] endoscopic carpal tunnel kit / technique. I made a transverse 2 cm incision in line with the??? transverse wrist crease.??? This was in line with the fourth digit.??? I carried the dissection down through skin and subcutaneous tissue achieved meticulous hemostasis. Just ulnar to palmaris tendon.??? I incised the antebrachial fascia.??? I passed sequential dilators into the carpal tunnel along the radial border of the Guyon's canal aiming for the fourth digit with the hand in extension.??? I used a synovial elevator to identify the transverse fibers of the transverse carpal tunnel ligament.??? Passed the scope into the carpal tunnel. Once I had identified the full proximal and distal extent of the ligament I fully released the ligament under direct visualization by deploying the blade and slowly withdrawing the scope made sequential passes until I no longer felt tension as well as the entire extent of the ligament was released under direct visualization.??? Sounded the tunnel with joyner tenotomy scissors, complete release, no bands. Slight proximal antebrachial fascia release. Arthroscope light was more visible through the skin. Pictures taken and saved. Wounds thoroughly irrigated.??? 6cc 0.25% bupivicaine for locan anesthesia. Tourniquet let down prior to end of the case and meticulous hemostasis achieved.??? Thorough irrigation.? Incisions closed with 3-0 vicryl and 3-0 ethilon for the skin.???Then adaptic 4x4 gauze and jose. Patient woken up,??? transferred off the operating room table and taken to postanesthetic care unit in stable condition. All sponge needle instrument counts were correct no complications.??? Plan for the patient to be discharged home according to day surgery criteria when they are comfortable. Follow-up in the office in 2 days time. Gentle ROM hand and elbow no heavy lifting. cpt 90676??? Procedure Start Time: 08:47 Procedure Stop Time: 09:05 Complications none Admit VTE Documentation VTE Present on Admission: No VTE Mechan Device Prophylaxis: SCD's VTE Pharm Prophylaxis ordered?: No Reason prophylaxis not ordered:: Treatment Not Indicated Procedures Musculoskeletal 20xxx-29xxx: Other Procedure See Report 12/28/23 0910 Cosigner Signature (if applicable): CC: Dr. Isma Almanza MD; Dr. Karan Alberto MD Signed [facility] ,Urineon 12-28-2023 Beta HCG ( test) Ql (U) Negative [facility] Comment on above: Result Comment: Very dilute urine specimens, as indicated by a low specific gravity, may not contain administrative representative levels of hCG. If is still suspected, a first morning urine specimen should be collected 48 hours later and tested. Performed By: #### L [phone] ####[facility] [id number] [place], [address] /PELON.Lisbeth 12-22-2023 MR/PELON. [address], [address] [place] [address] OFFICE VISIT Date of Service: 12/22/23 MR#: [id number] Acct: [id number] Name: DENNISSTELLA LOVE Rep #: [id number] : 1990 Provider: MARILYNN muniz Age/Sex: 33/F [place] [facility] [place] Status: Signed Intake Vital Signs 09/22/23 10:09 12/22/23 09:38 Height 5 ft 5 ft BP 137/90 H Blood Pressure Location Rt brachial Position Sitting Pulse 111 H Pulse Source Monitor BP Intake Visit Reasons: follow up Allergies No Known Drug Allergies Allergy (Verified 12/19/23 09:53) Other [facility] Medical History (Updated 12/19/23 @ 09:59 by Cari Khanna) Abnormal endoscopy of upper gastrointestinal tract Wears glasses Depression Dietary restriction Heartburn Gastric reflux Smoker Urinary tract infection with hematuria COVID-19 Asthma Surgical History (Updated 12/19/23 @ 09:59 by Cari Khanna) History of esophagogastroduodenosco py (EGD) History of wisdom tooth extraction History of carpal tunnel surgery ( 2016) History of Social History Smoking Status: Current every day smoker tobacco type: cigarettes alcohol intake: never substance use type: does not use what type of physical activity do you participate in: walking HPI History of Present Illness History provided by: patient Chief complaint: Depression/Anxiety HPI: Stella Collins is a 33 year old female patient presenting today for a follow up evaluation. Patient reports she has been doing better. Does state her had been approved to go to a group home house in February and she is filing for divorce in January. She is nervous about this situation with him. Feels depression has improved and she is starting to feel like her old self again. States other people have noticed a good change in her as well. Denies SI/HI. Does feel her current medication regimen does help with her anxiety. Is still feeling anxious everyday but reports it to be less severe than before. Does report her relationship with her oldest daughter has shown a lot of improvements. Does report moving in with her parents to be closer to her kids and feels this affects her mental health. Does feel like her parents overstep a lot with parenting her children. Is still working at [employer] and feels it is going well and they have noticed her work ethic has improved as well as her attitude. Is sleeping well. 5-6 hours per night. Does not nap. Does feel well rested for the most part. Energy has been good throughout the day. Appetite has been poor. Has not had a change in appetite. Previous similar episode: Yes Age of first onset of symptoms: 21-30 years Review of Systems Constitutional Reports: change in weight; Denies: fever(s), chills or fatigue Eyes Denies: change in vision or blurry vision Ears, Nose, Mouth, Throat Denies: throat pain or neck pain Cardiovascular Reports: chest pain (with anxiety), palpitations (with anxiety) and dyspnea (with anxiety) Respiratory Reports: dyspnea (with anxiety); Denies: wheezing Gastrointestinal Denies: abdominal pain, nausea, vomiting, diarrhea or constipation Genitourinary Denies: dysuria, urinary frequency or urinary urgency Musculoskeletal Denies: back pain or neck pain Integumentary/Breast Denies: rash, pruritus or erythema Neurological Denies: headache(s) Psychiatric Reports: anxiety and difficulty concentrating; Denies: panic attacks, change in sleep pattern, loss of interest, visual hallucinations, auditory hallucinations, suicidal ideation or homicidal ideation Endocrine Denies: polyuria, polydipsia or fatigue Hematologic/Lymphatic Denies: easy bruising Allergic/Immunologic Denies: wheezing Exam Mental Status Exam - Psych Appearance casually dressed, adequately groomed and no apparent distress Attitude cooperative Activity/Motor Behavior MSE activity/motor behavior finding no adventitious movements and appropriate eye contact Speech regular rate, regular volume and regular prosody Mood euythmic Affect full range Thought Process linear, logical and coherent Thought Content no delusions and no hallucinations Suicidal Ideation none Homicidal Ideation none Attention impaired (per patient self report) Concentration impaired (per patient self report) Sensorium/Orientation awake, alert and oriented x3 Memory/Cognition intact Insight good Judgement good Exam Constitutional Common normals: no acute distress, average body habitus and patient oriented x3 Neuro Common normals: patient oriented x3 Speech: speech normal Gait (neuro): normal gait Psych Psychiatry clinicians, please identify where your Mental Status Exam is documented: Mental Status Exam documented in the separat (more content not included)... Normal [facility] Bacteria Ur Culton 4 Bacteria identified Cx Nom (U) ORGANISM ID: 1 >=100,000 CFU/ml Escherichia coli ORGANISM ID: 1 (ESCHERICHIA COLI) ANTIBIOTIC INTERPRETATION SHANIA STATUS REFERENCE RANGE Ampicillin S <=2 F Susceptible <=8 , Intermediate >8 , Resistant >16 Cefazolin S <=4 F Susceptible 0-16 , Intermediate <0 or >16 , Resistant >16 For uncomplicated urinary tract infections, cefazolin results can be used to predict susceptibility or resistance to cephalexin. Ceftriaxone S <=1 F Susceptible <=1 , Intermediate >1 , Resistant >=4 Cefepime S <=1 F Susceptible <=2 , Susceptible-Dose Dependent >2 , Resistant >=16 Ertapenem S <=0.5 F Susceptible <=0.5 , Intermediate >.5 , Resistant >1 Meropenem S <=0.25 F Susceptible <=1 , Intermediate >1 , Resistant >2 Ampicillin/Sulbact S <=2 F Susceptible <=8 , Intermediate >8 , Resistant >16 Piperacillin/Tazobac S <=4 F Susceptible <16 , Susceptible-Dose Dependent >=16 , Resistant >=32 Gentamicin S <=1 F Susceptible <=2 , Intermediate >2 , Resistant >=8 Tobramycin S <=1 F Susceptible <4 , Intermediate >=4 , Resistant >=8 Trimeth sulfameth S <=20 F Susceptible <=40 , Resistant >40 Ciprofloxacin S <=0.25 F Susceptible <0.5 , Intermediate >=.5 , Resistant >=1 Nitrofurantoin S <=16 F Susceptible <=32 , Intermediate >32 , Resistant >[address] [facility] Comment on above: Performed By: #### 6 30-4 ####[facility] [id number] [address] [address] [place] CNOVon 12-14-2023 CNOV Office Visit (UCWSTR ) -------- STELLA COLLINS ([id number]) 1990 F Date Time Provider Department 12/14/23 7:15 PM ARLINE CARABALLO [facility] During your visit today, we recorded the following information about you: Temperature Pulse Respiration Blood pressure 97.3 degrees 114/minute 19/minute 112/70 Weight 95.7 kg Arline Caraballo APRN.LYFT DRIVER 12/14/2023 7:20 PM Signed This note was created using NoteWriter. Subjective Stellara Ben Collins is a 33 year old female. 33 year old female with PMH presents for possible UTI Acute onset 3 days +burning +frequency +urgency +suprapubic pressure Denies N/V/D Denies fever or chills Denies skin rash or lesions. Denies vaginal bleeding Denies vaginal discharge +sexually active LMP- N/A related to NexPlanon Used Azos The history is provided by the patient. No specialized language instructor was used. UTI This is a new problem. The current episode started more than 2 days ago. The problem occurs every urination. The problem has been gradually worsening. The quality of the pain is described as burning. The pain is at a severity of 5/10. The pain is mild. There has been no fever. She is Sexually active. Associated symptoms include frequency and urgency. Pertinent negatives include no chills, no sweats, no nausea, no vomiting, no discharge, no hematuria, no hesitancy, no possible and no flank pain. Treatments tried: Azos. Her past medical history does not include kidney stones, single kidney, urological procedure, recurrent UTIs, urinary stasis or catheterization. PAST MEDICAL HISTORY Diagnosis Date Anemia WITH Anxiety and depression 09/07/2021 PAST SURGICAL HISTORY Procedure Laterality Date CARPAL TUNNEL 2017 right hand DELIVERY ONLY 2010 , low transverse DELIVERY ONLY 11/06/13 , low transverse DELIVERY ONLY 06/18/2019 RC/S low transverse NEXPLANON INSERTION 12/28/2013 removed TUBAL LIGATION Bilateral 06/18/2019 ALLERGIES Patient has no known allergies. MEDICATIONS celecoxib (CELEBREX) 200 mg capsule Take 1 capsule by mouth once daily. propranolol (INDERAL) 10 mg tablet Take 10 mg by mouth three times a day as needed. REXULTI 0.5 mg tablet Take 0.5 mg by mouth once daily. hydrOXYzine HCl (ATARAX) 25 mg tablet [...] 1 Each by SUBDERMAL route as directed. nitrofurantoin monohydrate and macrocrystal (MACROBID) 100 mg capsule Take 1 capsule by mouth two times a day for 5 days. ondansetron orally disintegrating (ZOFRAN ODT) 4 mg disintegrating tablet Take 1 tablet by mouth every 8 hours as needed for nausea/vomiting. (Patient not taking: Reported on 09/29/2023) fluticasone-salmeterol (ADVAIR DISKUS) 250-50 mcg/dose inhaler Inhale 1 Puff as instructed twice daily. RINSE AND GARGLE MOUTH WITH WATER AFTER EACH USE. (Patient not taking: Reported on 09/29/2023) FAMILY HISTORY Problem Relation Age of Onset [...] History Tobacco Use Smoking status: Every Day Current packs/day: 1.00 Average packs/day: 1 pack/day for 5.0 years (5.0 ttl pk-yrs) Types: Cigarettes Smokeless tobacco: Never Tobacco comments: 1 ppd started at age 18 Vaping Use Vaping status: Never Used Substance Use Topics Alcohol use: No Drug use: No Review of Systems Constitutional: Negative for chills and fatigue. Eyes: Negative for pain, discharge and itching. Respiratory: Negative for apnea, cough, choking and chest tightness. Cardiovascular: Negative for chest pain, palpitations and leg swelling. Gastrointestinal: Negative for abdominal pain, nausea and vomiting. Genitourinary: Positive for dysuria, frequency and urgency. Negative for flank pain, hematuria and hesitancy. Musculoskele (more content not included)... Normal [facility] UA DIP, URINE (POC)on 2023 BILIRUBIN UA (POCT) Small Abnormal Negative [facility] CLARITY UA (POCT) Clear [facility] COLOR UA (POCT) [facility] GLUCOSE UA (POCT) 100 mg/dL Abnormal Negative [facility] Hemoglobin Ql (U) Small Abnormal Negative [facility] Interpretation and review of laboratory results Abnormal [facility] KETONE UA (POCT) Negative Negative mg/dL [facility] LEUKOCYTES UA (POCT) Trace Abnormal Negative [facility] NITRITE UA (POCT) Positive Abnormal Negative [facility] PH UA (POCT) 5.0 4.5 - 8.0 [facility] Protein Ql (U) 100 mg/dL Abnormal Negative [facility] SPECIFIC GRAVITY UA (POCT) >=1.030 1.005 - 1.030 [facility] UROBILINOGEN UA (POCT) 2.0 Abnormal Normal E.U./dL [facility] Location:[facility], [address] [place] [address], [place], [address] [facility] POINT OF CARE [facility] CNOVon 12-05-2023 CNOV Office Visit (PODIWS ) -------- STELLA COLLINS ([id number]) 1990 F Date Time Provider Department 12/05/23 1:30 PM MARTINA BAUTISTA During your visit today, we recorded the following information about you: Beulah Flores LPN 12/06/2023 8:59 AM Signed AMB ROOMING INTAKE FLOWSHEET DATA Pain Pain Level: 4 Pain Location: Foot-Left Description: Sore Duration Amount of Time: 3 Duration Units: Months Frequency: Continuous Intervention/Comfort measure: Reposition, Relaxation, Medication, Cold Patient presents with: Left Foot - New, Swelling, Pain ZAKIYA Sanchez Matthew 12/06/2023 8:59 AM Signed Initial Podiatric Office Visit: Chief Complaint: This 33 year old female who presents with chief complaint:left heel pain HPI Patient presents to clinic for evaluation of left foot Complains of pain to left heel/arch that has been going on for several months Patient states the pain is present the more she is on her foot. She states she has tried heel lifts and stretching but nothing makes the pain go away. PAIN EVALUATION 12/05/2023 1344 Pain Level: 4 Pain Location: Foot-Left Description: Sore Duration Amount of Time: 3 Duration Units: Months Frequency: Continuous Intervention/Comfort measure: Reposition;Relaxation;Me dication;Cold Hemoglobin A1C (%) Date Value 06/26/2022 5.6 PCP: Isma Almanza MD PAST MEDICAL HISTORY Diagnosis Date Anemia WITH Anxiety and depression 09/07/2021 Current Outpatient Medications Medication Sig celecoxib (CELEBREX) 200 mg capsule Take 1 capsule by mouth once daily. propranolol (INDERAL) 10 mg tablet Take 10 mg by mouth three times a day as needed. REXULTI 0.5 mg tablet Take 0.5 mg by mouth once daily. ondansetron orally disintegrating (ZOFRAN ODT) 4 mg disintegrating tablet Take 1 tablet by mouth every 8 hours as needed for nausea/vomiting. (Patient not taking: Reported on 09/29/2023) hydrOXYzine HCl (ATARAX) 25 mg tablet Take [...] hours as needed for wheezing/shortness of breath. fluticasone-salmeterol (ADVAIR DISKUS) 250-50 mcg/dose inhaler Inhale 1 Puff as instructed twice daily. RINSE AND GARGLE MOUTH WITH WATER AFTER EACH USE. (Patient not taking: Reported on 09/29/2023) etonogestrel (NEXPLANON) subdermal implant 68 mg 1 Each by SUBDERMAL route as directed. No current facility-administered medications for this visit. ALLERGIES No Known Allergies PAST SURGICAL HISTORY Procedure Laterality Date CARPAL [...] History Tobacco Use Smoking status: Every Day Current packs/day: 1.00 Average packs/day: 1 pack/day for 5.0 years (5.0 ttl pk-yrs) Types: Cigarettes Smokeless tobacco: Never Tobacco comments: 1 ppd started at age 18 Vaping Use Vaping status: Never Used Substance Use Topics Alcohol use: No Drug use: No REVIEW OF SYSTEMS GENERAL: Negative for Malaise, significant weight loss, fever RESPIRATORY: Negative for cough, wheezing and shortness of breath CARDIOVASCULAR: Negative for chest pain, leg swelling and palpitations GI: Negative for abdominal discomfort, blood in stools or black stools and change in bowel habits : Negative for dysuria, frequency and incontinence MUSCULOSKELETAL: Negative for joint pain or swelling, back pain, and muscle pain. SKIN: Negative for lesions, rash, and itching. HEMATOLOGY/LYMPHOLOGY Negative for prolonged bleeding, bruising easily, and swollen nodes. ENDOCRINE: Negative for cold or heat intolerance, polyuria, polydip (more content not included)... Normal [facility] Orthopedic Visit Reporton Orthopedic Visit Report [facility] [address] [place] [address] OFFICE VISIT Date of Service: 12/05/23 MR#: [id number] Acct: [id number] Name: STELLA COLLINS Rep #: [id number] : 1990 Provider: Dr. Karan arauz MD Age/Sex: 33/F Location[place] [facility] Status: Signed Intake Vital Signs 09/22/23 10:09 Height 5 ft BP 137/90 H Blood Pressure Location Rt brachial Position Sitting Pulse 111 H Pulse Source Monitor Intake Visit Reasons: LEFT WRIST Accompanied by: Self Is patient in pain?: No Allergies No Known Drug Allergies Allergy (Verified 12/05/23 10:41) Other Medications ???Medication ???Instructions ???Recorded ???Confirmed ???Type etonogestrel 68 mg subdermal 1 implant subdermal ONCE 07/20/21 12/05/23 History implant (Nexplanon) sucralfate 1 gram tablet (Carafate) 1 g PO BID #60 tabs 06/10/23 12/05/23 Rx omeprazole 40 mg capsule,delayed 40 mg PO DAILY #60 caps 06/27/23 12/05/23 Rx release venlafaxine 75 mg capsule,extended 75 mg PO DAILY #90 caps 08/11/23 12/05/23 Rx release 24 hr propranolol 10 mg tablet 10 mg PO TID PRN anxiety #90 tabs 09/08/23 12/05/23 Rx brexpiprazole 1 mg tablet 1 mg PO DAILY #90 tabs 09/22/23 12/05/23 Rx buspirone 15 mg tablet 15 mg PO TID #270 tabs 09/22/23 12/05/23 Rx hydroxyzine HCl 25 mg tablet 25 mg PO TID PRN anxiety #90 tabs 09/22/23 12/05/23 Rx trazodone 50 mg tablet 50 mg PO QHS PRN insomnia #90 tabs 09/22/23 12/05/23 Rx PFSH Medical History Abnormal endoscopy of upper gastrointestinal tract Wears glasses Depression Dietary restriction Heartburn Gastric reflux Smoker Urinary tract infection with hematuria COVID-19 Asthma Surgical History History of wisdom tooth extraction History of carpal tunnel surgery ( 2016) History of Social History Smoking Status: Current every day smoker tobacco type: cigarettes alcohol intake: never substance use type: does not use what type of physical activity do you participate in: walking HPI LEFT WRIST Details: This documentation accurately reflects the service provided and the decisions made by me, Dr. Karan Alberto MD 12/05/23 0943. Part of today???s visit was documented by [ ], acting as scribe. STELLA COLLINS is a 33 year old F here today for L CTS. RHD. 3 years of symptoms. getting worse over the last 3 months. 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 getting clumsy. the thumb index middle and radial of ring. had surgery 2017 on the right side - feels the same way as it did before surgery. tried a brace now 3 months. 1 PPD cigs. Supplemental Info [facility] Pulmonary Services/Neurology [address] [place] [address] MR#: [id number] Acct: [id number] Name: STELLA COLLINS Rep #: [id number] : 1990 31 From: Milan Gonzalez DO Referring Dr: Martina Bailey PA Status: REG CLI Location: [facility] Date: 09/18/21 Sex: F C NCS and/or EMG Patient Report Ordering Doctor: Martina Bailey DATE OF SERVICE: 09/18/21 Indication: One year of left wrist pain and fluctuating numbness in the first three digits as well as the lateral aspect of digit 4. Symptoms feel similar to carpal tunnel she was previously treated for on the right. There is no associated, localized or radicular neck pain. Findings: Nerve conduction studies were performed in the left upper extremity. The left median motor study recording the abductor pollicis brevis showed a normal amplitude, prolonged distal latency and slowed conduction velocity. The left ulnar motor study recording the abductor digiti minimi showed a normal amplitude, normal distal latency and normal conduction velocity. No conduction block or focal slowing was present across the elbow. Comparison lumbrical/interosseous studies demonstrated prolonged left median responses compared to the ulnar. The left median sensory response recording digit two showed a normal amplitude, prolonged latency and markedly slowed conduction velocity. The left ulnar sensory response recording digit five showed a normal amplitude, latency and conduction velocity. The left radial sensory response recording over the extensor snuff box showed a normal amplitude, latency and conduction velocity. Needle EMG of the left upper extremity was omitted given the convincing nature of the nerve conduction studies and the lack of superimposed radicular symptoms. Impression: This is an abnormal st (more content not included)... 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 PMH significant for ACTIVE PROBLEM LIST Obesity, Class Iii, Bmi 40-49.9 (Morbid Obesity) (Hcc) Pain in Right Knee Chronic Right-Sided Low Back Pain With Right-Sided Sciatica Carpal Tunnel Syndrome of Right Wrist Anxiety and Depression PCP: Isma Almanza MD Presents today regarding celebrex. She was seen in [facility] 29, 2023 for pain of the left heel. X-ray completed and negative for concerning findings. Treated with meloxicam. She notes that meloxicam caused swelling of her legs so she discontinued it with clearing of the swelling. She notes that she is taking Tylenol but not helping much. Notes she put a heel cup in her shoe did not seem to help as well. Has been stretching her foot at home with some relief. 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 Review of Systems Constitutional: Negative. HENT: Negative. Musculoskeletal: Positive for arthralgias. Objective BP 116/72 (BP Site: Left Arm, BP Position: Sitting, BP Cuff Size: Large Adult) Pulse 111 Resp 14 Ht 154.9 cm (5' 1) Wt 96.4 kg (212 lb 8.4 oz) LMP 07/15/2020 SpO2 98% BMI 40.16 kg/m? Physical Exam Vitals and nursing note reviewed. Constitutional: Appearance: Normal appearance. HENT: Head: Normocephalic and atraumatic. Mouth/Throat: Lips: [place]. Eyes: Conjunctiva/sclera: Conjunctivae normal. Cardiovascular: Rate and Rhythm: Normal rate and regular rhythm. Pulses: Dorsalis pedis pulses are 2+ on the left side. Heart sounds: Normal heart sounds. Pulmonary: Effort: Pulmonary effort is normal. Breath sounds: Normal breath sounds. Feet: Left foot: Skin integrity: Skin integrity normal. Comments: Not TTP heel, achilles area, TTP midfoot and heel and midfoot pain with ROM Skin: General: Skin is warm and dry. Neurological: General: No focal deficit present. Mental Status: She is alert and oriented to person, place, and time. ALLERGIES No Known Allergies Medication celecoxib (CELEBREX) 200 mg capsule Take 1 capsule by mouth once daily. propranolol (INDERAL) 10 mg tablet Take 10 mg by mouth three times a day as needed. meloxicam (MOBIC) 15 mg tablet Take 1 tablet by mouth once daily for 15 days. Take with food. REXULTI 0.5 mg tablet Take 0.5 mg by mouth once daily. ondansetron orally disintegrating (ZOFRAN ODT) 4 mg disintegrating tablet Take 1 tablet by mouth every 8 hours as needed for nausea/vomiting. (Patient not taking: Reported on 09/29/2023) hydrOXYzine HCl (ATARAX) 25 mg tablet Take [...] hours as needed for wheezing/shortness of breath. fluticasone-salmeterol (ADVAIR DISKUS) 250-50 mcg/dose inhaler Inhale 1 Puff as instructed twice daily. RINSE AND GARGLE MOUTH WITH WATER AFTER EACH USE. (Patient not taking: Reported on 09/29/2023) etonogestrel (NEXPLANON) subdermal implant 68 mg 1 Each by SUBDERMAL route as directed. PAST MEDICAL HISTORY No date: Anemia Comment: WITH 09/07/2021: Anxiety and depression Social History Tobacco Use Smoking status: Every Day Packs/day: 0.50 Years: 5.00 Additional pack years: 0.00 Total pack years: 2.50 Types: Cigarettes Smokeless tobacco: Never Tobacco comments: 1 ppd started at age 18 Vaping Use Vaping Use: Never used Substance Use Topics Alcohol use: No Drug use: No ASSESSMENT/PLAN: 1. Left foot pain - ICD9: 729.5, ICD10: M79.672 She notes improved with home measures but intolerant of meloxicam due to side effects. Will switch to Celebrex per her request, notes that she works with the pharmacist recommended this. I think this is fine. She has an appointment coming up with Dr. Lopez (more content not included)... Normal [facility] CNOVon 09-29-2023 CNOV Office Visit (UCTR ) -------- STELLA COLLINS ([id number]) 1990 F Date Time Provider Department 09/29/23 6:45 PM SILVESTRE DIANA [facility] During your visit today, we recorded the following information about you: Temperature Pulse Respiration Blood pressure 97.9 degrees 119/minute 21/minute 110/90 Weight 96.1 kg Silvestre Diana MD 09/29/2023 7:40 PM Signed Patient presents with: Pain (foot): Left foot pain, swollen lump on heel x 2 weeks HPI: Left foot pain: Duration: 2 weeks. Location: bottom of the left heel Character: sharp and throbbing Radiation: No. Aggravating: standing and walking Relieving: Pain relievers: aleve, insole, stretching Associated: swelling at the front of the heel Pertinent negatives: Denies no known injury. MEDICATIONS: propranolol (INDERAL) 10 mg tablet Take 10 mg by mouth three times a day as needed. REXULTI 0.5 mg tablet Take 0.5 mg by mouth once daily. hydrOXYzine HCl (ATARAX) 25 mg tablet [...] mg by mouth two times a day.) etonogestrel (NEXPLANON) subdermal implant 68 mg 1 Each by SUBDERMAL route as directed. ondansetron orally disintegrating (ZOFRAN ODT) 4 mg disintegrating tablet Take 1 tablet by mouth every 8 hours as needed for nausea/vomiting. (Patient not taking: Reported on 09/29/2023) ibuprofen (MOTRIN) 600 mg tablet Take 1 tablet by mouth every 6 hours as needed for pain. (Patient not taking: Reported on 09/29/2023) albuterol HFA (VENTOLIN HFA) 90 mcg/actuation inhaler Inhale 2 Puffs as instructed every 4 hours as needed for wheezing/shortness of breath. fluticasone-salmeterol (ADVAIR DISKUS) 250-50 mcg/dose inhaler Inhale 1 Puff as instructed twice daily. RINSE AND GARGLE MOUTH WITH WATER AFTER EACH USE. (Patient not taking: Reported on 09/29/2023) ALLERGIES: ALLERGIES No Known Allergies VITALS: BP 110/90 Pulse 119 Temp 36.6 ?C (97.9 ?F) Resp 21 Wt 96.1 kg (211 lb 13.8 oz) LMP 07/15/2020 SpO2 99% BMI 40.03 kg/m? PHYSICAL EXAM: GEN: pleasant, alert, no acute distress FOOT/ANKLE: left. Minimal swelling anterior calcaneus. No erythema, ecchymosis, or deformity. Range of motion: inversion - non-painful, eversion - non-painful, anterior drawer- non-painful. Able to bear weight. normal gait. Palpation: Medial malleolus non-painful, lateral malleolus non-painful, Dorsal proximal midfoot - non-painful, proximal 5th metatarsal non-painful, posterior calcaneus uncomfortable, anterior-inferior and medial-anterior calcaneus are tender to palpation. ASSESSMENT/PLAN: 1. Pain of left heel - ICD9: 729.5, ICD10: M79.672 - XR CALCANEUS 2V AXIAL/LAT LEFT -no obvious fractures or spurs. Radiology interpretation is pending. The patient will be notified if there is a significant finding in the report not discussed at the time of the visit. Suspect plantar fasciitis. Continue supportive care treatment. - CONSULT TO PODIATRY Change from aleve to - MELOXICAM 15 MG TABLET to reduce gastric irritation. Silvestre Diana MD Allergies As of Date: 09/29/2023 (No Known Allergies) Date Reviewed: 09/29/2023 Reviewed by: Taisha Lopez MA - Fully Assessed Reason for Visit: Pain (foot) [760] Cmt: Left foot pain, swollen lump on heel x 2 weeks Primary Visit Diagnosis:Pain of left heel [M79.672] Order(s):XR CALCANEUS 2V AXIAL/LAT LEFT [7125628] Order #: [id number] FUTURE CONSULT TO PODIATRY [9034] Order #: [id number]: 1 FUTURE meloxicam (MOBIC) 15 mg tabletTake 1 tablet by mouth once daily for 15 days. Take with food.Disp: 15 tabletRfl: 0 Prescriptions as of 09/29/2023 - propranolol (INDERAL) 10 mg tablet Take 10 mg by mouth three times a day as needed. - meloxicam (MOBIC) 15 mg tablet Take 1 tablet by mouth once daily for 15 days. Take with food. - REXULTI 0.5 mg tablet Take 0.5 mg by mouth once daily. - ondansetron orally disintegrating (ZOFRAN ODT) 4 mg disintegrating tablet Take 1 tablet by mouth every 8 hours as needed for nausea/vomiting. - hydrOXYzine HCl (ATARAX) 25 mg tablet Take 1 tablet by mouth three times a day as needed for anxiety. - venlafaxine ER (EFFEXOR XR) 37.5 mg 24 hr capsule Take 1 capsule by mouth once daily. - pantoprazole DR (PROTONIX) 40 mg tablet Take 1 tablet by mouth once daily. - montelukast (SINGULAIR) 10 mg tablet Take 1 tablet by mouth daily at bedtime. - busPIRone (BUSPAR) 10 mg tablet Take 1 tablet by mouth three time (more content not included)... Normal [facility] XR CALCANEUS 2V AXIAL/LAT LT on 09-29-2023 XR CALCANEUS 2V AXIAL/LAT LT * * *Final Report* * * DATE OF EXAM: Sep 29 2023 7:15PM WOX [id number] - XR CALCANEUS 2V AXIAL/LAT LT / PROCEDURE REASON: Pain of left heel * * * * Physician Interpretation * * * * EXAMINATION: LEFT CALCANEUS X-RAY SERIES HISTORY: Pain of left heel COMPARISON: None available. TECHNIQUE: Lateral and axial views. RESULT: No acute fracture, dislocation or radio opaque foreign body. Visualized joints appear preserved. Soft tissues are unremarkable. IMPRESSION: Negative left calcaneus. Egg Buyer: [facility] Transcribe Date/Time: Sep 29 2023 8:15P Dictated by : MEAGHAN FLOWERS MD This examination was interpreted and the report reviewed and electronically signed by: MEAGHAN FLOWERS MD on Sep 29 2023 8:15PM EST [id number] Normal [facility] XR Calcaneus - left 2 Viewso n 09-29-2023 IMPRESSION: Negative left calcaneus. Egg Buyer: [facility] Transcribe Date/Time: Sep 29 2023 8:15P Dictated by : MEAGHAN FLOWERS MD This examination was interpreted and the report reviewed and electronically signed by: MEAGHAN FLOWERS MD on Sep 29 2023 8:15PM EST DIVISION OF RADIOLOGY * * *Final Report* * * DATE OF EXAM: Sep 29 2023 7:15PM WOX [id number] - XR CALCANEUS 2V AXIAL/LAT LT / PROCEDURE REASON: Pain of left heel * * * * Physician Interpretation * * * * EXAMINATION: LEFT CALCANEUS X-RAY SERIES HISTORY: Pain of left heel COMPARISON: None available. TECHNIQUE: Lateral and axial views. RESULT: No acute fracture, dislocation or radio opaque foreign body. Visualized joints appear preserved. Soft tissues are unremarkable. DIVISION OF RADIOLOGY Provider, [facility] - 09/29/2023 * * *Final Report* * * DATE OF EXAM: Sep 29 2023 7:15PM WOX [id number] - XR CALCANEUS 2V AXIAL/LAT LT / PROCEDURE REASON: Pain of left heel * * * * Physician Interpretation * * * * EXAMINATION: LEFT CALCANEUS X-RAY SERIES HISTORY: Pain of left heel COMPARISON: None available. TECHNIQUE: Lateral and axial views. RESULT: No acute fracture, dislocation or radio opaque foreign body. Visualized joints appear preserved. Soft tissues are unremarkable. IMPRESSION IMPRESSION: Negative left calcaneus. Egg Buyer: [facility] Transcribe Date/Time: Sep 29 2023 8:15P Dictated by : MEAGHAN FLOWERS MD This examination was interpreted and the report reviewed and electronically signed by: MEAGHAN FLOWERS MD on Sep 29 2023 8:15PM EST [facility] Radiology Study observation (narrative) [facility] XR Calcaneus - left 2 ViewsO rdered By: [facility] Provider on 09-29-2023 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 Institutional Sales Required: No Accompanied by: Self Is patient in pain?: No Allergies No Known Drug Allergies Allergy (Verified 09/22/23 10:10) Other Medications ???Medication ???Instructions ???Recorded ???Confirmed ???Type etonogestrel 68 mg subdermal 1 implant subdermal ONCE 07/20/21 09/22/23 History implant (Nexplanon) sucralfate 1 gram tablet (Carafate) 1 g PO BID #60 tabs 06/10/23 09/22/23 Rx omeprazole 40 mg capsule,delayed 40 mg PO DAILY #60 caps 06/27/23 09/22/23 Rx release venlafaxine 75 mg capsule,extended 75 mg PO DAILY #90 caps 08/11/23 09/22/23 Rx release 24 hr propranolol 10 mg tablet 10 mg PO TID PRN anxiety #90 tabs 09/08/23 09/22/23 Rx brexpiprazole 1 mg tablet 1 mg PO DAILY #90 tabs 09/22/23 09/22/23 Rx buspirone 15 mg tablet 15 mg PO TID #270 tabs 09/22/23 09/22/23 Rx hydroxyzine HCl 25 mg tablet 25 mg PO TID PRN anxiety #90 tabs 09/22/23 09/22/23 Rx trazodone 50 mg tablet 50 mg PO QHS PRN insomnia #90 tabs 09/22/23 09/22/23 Rx Current gender identity: female Nurse's Note: Presents to the office today for follow up. [facility] Medical History Abnormal endoscopy of upper gastrointestinal tract Wears glasses Depression Dietary restriction Heartburn Gastric reflux Smoker Urinary tract infection with hematuria COVID-19 Asthma Surgical History History of wisdom tooth extraction History of carpal tunnel surgery ( 2017) History of Social History Smoking Status: Current every day smoker tobacco type: cigarettes alcohol intake: never substance use type: does not use what type of physical activity do you participate in: walking HPI History of Present Illness History provided by: patient HPI: Stella Collins is a 33 year old female patient presenting today for a follow up evaluation. Feels she has been sleeping better. Getting about 4-5 hours per night. Will sometimes wake up but falls asleep easily after waking. Did have a rough patch with anxiety. Propranolol was given about 2 weeks ago and she feels this was beneficial. Was handling court with . Her took a plea deal and was only sentenced to 18 months because they dropped one of his charges. Is doing well with anxiety now but is working on relocating before her is release. Reports she is struggling due to her car being broken and being unable to afford fixing it at this time. Is planning to move out of home and bring her 2 kids with her but her oldest may stay with her parents. Feels depression has been getting better. Feels mood is lower at nighttime. Has been taking brexpiprazole at bedtime and hydroxyzine. Denies SI/HI. Is interested in resuming trazodone that she was on previously to allow her to get more sound sleep, she had some left over from the last time she was prescribed this and it has been helping. Has been doing therapy at [facility] and needed to switch counselors and has only met with her new counselor one time. Previous similar episode: Yes Age of first onset of symptoms: 21-30 years Review of Systems Constitutional Reports: change in weight and fatigue; Denies: fever(s) or chills Eyes Denies: change in vision or blurry vision Ears, Nose, Mouth, Throat Denies: throat pain or neck pain Cardiovascular Reports: chest pain (with anxiety), palpitations (with anxiety) and dyspnea (with anxiety) Respiratory Reports: dyspnea (with anxiety); Denies: wheezing Gastrointestinal Denies: abdominal pain, nausea, vomiting, diarrhea or constipation Genitourinary Denies: dysuria, urinary frequency or urinary urgency Musculoskeletal Denies: back pain or neck pain Integumentary/Breast Denies: rash, pruritus or erythema Neurological Denies: headache(s) Psychiatric Reports: anxiety, change in sleep pattern, loss of interest and difficulty concentrating; Denies: panic attacks, visual hallucinations, auditory hallucinations, suicidal ideation or homicidal ideation Endocrine Reports: fatigue; Denies: polyuria or polydipsia Hematologic/Lymphatic Denies: easy bruising Allergic/Immunologic Denies: wheezing Exam Me (more content not included)... Normal [facility] 08-26-2023 [facility] Office Visit ([facility] ) -------- STELLA COLLINS ([id number]) 1990 F Date Time Provider Department 08/26/23 9:45 AM [facility] During your visit today, we recorded the following information about you: Temperature Pulse Respiration Blood pressure 97.6 degrees 124/minute 18/minute 158/82 Weight 96.2 kg Deborah Tobar APRN.CNP 08/26/2023 9:52 AM Signed ASSESSMENT/PLAN: 1. Pain, dental - ICD9: 525.9, ICD10: K08.89 (primary diagnosis) - AMOXICILLIN 875 MG TABLET 2. Feared condition not demonstrated - ICD9: V65.5, ICD10: Z71.1 - patient states she gets vaginal yeast infection with antibiotic use - FLUCONAZOLE 150 MG TABLET - Follow-up with your DENTIST JULIANE - Discussed red flags and need for immediate medical evaluation if any occur. - Discussed supportive care treatment with fluids, rest and analgesia. - Discussed expected course of illness Deborah Tobar APRN.CNP TOOTHACHE: Your exam shows that your toothache is probably due to tooth decay and infection. Poor dental care is the main cause of this problem. Swelling and redness around a painful tooth often means you have a dental abscess. Pain medicine and antibiotics can help reduce symptoms, but you will need to see a dentist within the next few days to have your problem properly treated. Fillings or root canal work may be needed to save your tooth. If the problem is severe, your tooth may need to be pulled. Please return here right away if you have a fever over 101F, can?t swallow, or develop severe swelling. Deborah Tobar APRN.LYFT DRIVER 08/26/2023 9:58 AM Signed Subjective Dental Problem Pertinent negatives include no chills, fever, headaches, rash or sore throat. Stella Collins is a 33 year old female who presents with left lower molar pain. She was chewing gum yesterday when a piece of the tooth broke off. She denies ear pain or fever. She does not currently have a dentist as she just moved to [facility]. She rates her pain 7/10. Review of Systems Constitutional: Negative for chills and fever. HENT: Negative for ear pain and sore throat. See HPI Skin: Negative for itching and rash. Neurological: Negative for headaches. BP 158/82 Pulse (!) 124 Temp 36.4 ?C (97.6 ?F) Resp 18 Wt 96.2 kg (212 lb 1.3 oz) LMP 07/15/2020 SpO2 97% BMI 40.07 kg/m? PAST MEDICAL HISTORY Diagnosis Date Anemia WITH Anxiety and depression 09/07/2021 PAST SURGICAL HISTORY Procedure Laterality Date CARPAL TUNNEL 2017 right hand DELIVERY ONLY 2010 , low transverse DELIVERY ONLY 11/06/13 , low transverse DELIVERY ONLY 06/18/2019 RC/S low transverse NEXPLANON INSERTION 12/28/2013 removed TUBAL LIGATION Bilateral 06/18/2019 ALLERGIES Patient has no known allergies. MEDICATIONS REXULTI 0.5 mg tablet Take 0.5 mg by mouth once daily. ondansetron orally disintegrating (ZOFRAN ODT) 4 mg disintegrating tablet Take 1 tablet by mouth every 8 hours as needed for nausea/vomiting. hydrOXYzine HCl (ATARAX) 25 mg tablet Take [...] every 6 hours as needed for pain. fluticasone-salmeterol (ADVAIR DISKUS) 250-50 mcg/dose inhaler Inhale 1 Puff as instructed twice daily. RINSE AND GARGLE MOUTH WITH WATER AFTER EACH USE. amoxicillin (AMOXIL) 875 mg tablet Take 1 tablet by mouth two times a day for 10 days. fluconazole (DIFLUCAN) 150 mg tablet Take 1 tablet by mouth one time only for 1 dose. Repeat in 3 days as needed. albuterol HFA (VENTOLIN HFA) 90 mcg/actuation inhaler [...] status: Every Day Packs/day: 0.50 Years: 5.00 (more content not included)... Normal [facility] CNOVon 07-22-2023 CNOV Office Visit ([facility]WSTR ) -------- STELLA COLLINS ([id number]) 1990 F Date Time Provider Department 07/22/23 7:30 PM DELIA ABRAMS [facility] During your visit today, we recorded the following information about you: Temperature Pulse Respiration Blood pressure 98.1 degrees 127/minute 22/minute 139/96 Weight 94 kg Delia Abrams, AZAM.LYFT DRIVER 07/22/2023 7:36 PM Signed Subjective Came in with complaints of neck and shoulder pain. Patient says she has had a couple days. Patient says Tylenol does not alleviate the pain. Patient says she slept on a couch wrong. Patient denies any numbness tingling or loss of feeling. Patient denies any shortness of breath chest pain or pressure. The history is provided by the patient. No specialized language instructor was used. Review of Systems Constitutional: Negative. Skin: Negative. Objective Physical Exam Constitutional: Appearance: Normal appearance. Pulmonary: Effort: Pulmonary effort is normal. Skin: Comments: Patient said the pain is in the areas marked above. They are tender to palpate. Empty can test is negative scratch test is negative patient can lift her arm with no limited range of motion. Neurological: Mental Status: She is alert. PAST MEDICAL HISTORY Diagnosis Date Anemia WITH Anxiety and depression 09/07/2021 PAST SURGICAL HISTORY Procedure Laterality Date CARPAL TUNNEL 2017 right hand DELIVERY ONLY 2010 , low transverse DELIVERY ONLY 11/06/13 , low transverse DELIVERY ONLY 06/18/2019 RC/S low transverse NEXPLANON INSERTION 12/28/2013 removed TUBAL LIGATION Bilateral 06/18/2019 ALLERGIES Patient has no known allergies. MEDICATIONS REXULTI 0.5 mg tablet Take 0.5 mg by mouth once daily. hydrOXYzine HCl (ATARAX) 25 mg tablet [...] mg by mouth two times a day.) etonogestrel (NEXPLANON) subdermal implant 68 mg 1 Each by SUBDERMAL route as directed. predniSONE (DELTASONE) 10 mg tablet Take 4 tabs daily for 3 days, then 2 tabs daily for 3 days, then 1 tab daily for 3 days with food. ondansetron orally disintegrating (ZOFRAN ODT) 4 mg disintegrating tablet Take 1 tablet by mouth every 8 hours as needed for nausea/vomiting. (Patient not taking: Reported on 07/22/2023) ibuprofen (MOTRIN) 600 mg tablet Take 1 tablet by mouth every 6 hours as needed for pain. (Patient not taking: Reported on 04/05/2023) albuterol HFA (VENTOLIN HFA) 90 mcg/actuation inhaler Inhale 2 Puffs as instructed every 4 hours as needed for wheezing/shortness of breath. fluticasone-salmeterol (ADVAIR DISKUS) 250-50 mcg/dose inhaler Inhale [...] use: No Drug use: No ASSESSMENT/PLAN: 1. Muscle pain - ICD9: 729.1, ICD10: M79.10 (primary diagnosis) - PREDNISONE 10 MG TABLET 2. Pain - ICD9: 780.96, ICD10: R52 - XR SHOULDER GENERAL 3V OR MORE AP/TRUE AP/OTHER LEFT Will come back Tuesday for x-ray. Patient was educated to take Tylenol rest and ice. Patient was okay with this care plan and red flag symptoms were discussed with patient if anything changes or worsens patient will go to the emergency room. Delia Abrams APRN.LYFT DRIVER Allergies As of Date: 07/22/2023 (No Known Allergies) Date Reviewed: 07/22/2023 Reviewed by: Nicole Bourgeois LPN - Fully Assessed Reason for Visit: Pain [78] Cmt: Left shoulder into neck pain x 3 days increasing, started after sleeping on a couch Primary Visit Diagnosis:Muscle pain [M79.10] Other Visit Diagnosis:[place] (more content not included)... Normal [facility] Laboratory - Chemistry and C hemistry - challengeOrdered By: Paddy Perez on 06-10-2023 HCG ( test) Ql (U) Negative [facility] Comment on above: Very dilute urine sp ecimens, as indicated by a low specificgravity, may not contain administrative representative levels of hCG. If is still suspected, a first morning urinespecimen should be collected 48 hours later and tested. Absolute lymphocyte countOrd ered By: Toña Horton on 05-05-2023 Lymphocytes Auto (Unsp spec) [#/Vol] 3.40 10*3/uL 0.83-4.51 [facility] Automated lymphocyte count a s percentage of total leukocytesOrdered By: Toña Horton on 05-05-2023 Lymphocytes/100 WBC Auto (Unsp spec) 34.7 % 19-41 [facility] Basophil percentageOrdered B y: Toña Horton on 05-05-2023 Basophil percentage 0 SEEN /hpf 0-5 [facility] Basophils/100 WBC (Bld) 0.3 % 0-1 [facility] Bilirubin [Mass/Vol] 0.60 mg/dL 0.20-1.00 [facility] Comment on above: For patients on eltr ombopag therapy, use of Dimension [place] TBIL is not recommended. Chloride [Moles/Vol] 109 mmol/L 98-107 [facility] Eosinophils/100 WBC (Bld) 2.2 % 0-5 [facility] Glucose [Mass/Vol] 110 mg/dL 74-106 [facility] Comment on above: Fasting Glucose resu lt from 100 to 125 mg/dL suggests IMPAIRED HOMEOSTASIS per A.D.A. criteria. Hemoglobin (Bld) [Mass/Vol] 13.4 g/dL 12.0-15.0 [facility] Monocytes/100 WBC (Bld) 8.2 % 0-10 [facility] Neutrophils (Bld) [#/Vol] 5.3 10*3/uL 2.0-7.7 [facility] Neutrophils/100 WBC (Bld) 54.2 % 47-70 [facility] Potassium [Moles/Vol] 3.0 mmol/L 3.5-5.1 [facility] Protein [Mass/Vol] 7.5 g/dL 6.4-8.2 [facility] Sodium [Moles/Vol] 138 mmol/L 136-145 [facility] WBC (Bld) [#/Vol] 9.8 10*3/uL 4.4-11.0 [facility] Bilirubin Test strip Ql (U)O rdered By: Toña Horton on 05-05-2023 Bilirubin Ql (U) Negative Negative [facility] Determination of erythrocyte mean corpuscular volume (MCV)Ordered By: Toña Hroton on 05-05-2023 MCV (RBC) [Entitic vol] 87.9 fL 81-99 [facility] Direct bilirubinOrdered By: Toña Horton on 05-05-2023 Bilirubin.direct [Mass/Vol] 0.12 mg/dL 0.00-0.30 [facility] Erythrocyte distribution wid th ratioOrdered By: Toña Horton on 05-05-2023 Erythrocyte distribution width (RBC) [Ratio] 12.8 % 11.6-14.6 [facility] Erythrocyte distribution wid th standard deviationOrdered By: Toña Horton on 05-05-2023 Erythrocyte distribution width (RBC) [Entitic vol] 40.5 fL 35.1-43.9 [facility] Hematocrit Auto (Bld) [Volum e fraction]Ordered By: Toña Horton on 05-05-2023 Hematocrit (Bld) [Volume fraction] 40.8 % 37-47 [facility] Immature granulocytes/100 WB C Auto (Bld)Ordered By: Toña Horton on 05-05-2023 Immature granulocytes/100 WBC (Bld) 0.400 % 0.0-0.9 [facility] Comment on above: IG% - Immature Granu locytes (promyelocytes, myelocytes and metamyelocytes) > 1% indicates that a LEFT SHIFT is Present. Ketones Test strip Ql (U)Ord ered By: Toña Horton on 05-05-2023 Ketones Ql (U) Negative Negative [facility] Laboratory - Chemistry and C hemistry - challengeOrdered By: Toña Horton on 05-05-2023 ALP [Catalytic activity/Vol] 79 U/L 45-117 [facility] ALT [Catalytic activity/Vol] 19 U/L 13-56 [facility] CO2 [Moles/Vol] 25.0 mmol/L 21.0-32.0 [facility] Globulin (S) [Mass/Vol] 3.6 g/dL 2.2-4.2 [facility] Lipase [Catalytic activity/Vol] 51 U/L 13-75 [facility] Comment on above: Please note:LIPASE r evised reference range effective 22. New Lipase methodology. Expected to produce lower values than the previous assay method. NEW Reference Range: 13 - 75 U/L Urea nitrogen/Creatinine [Mass ratio] 11.2 mg/mg 10-20 [facility] Laboratory - Hematology and Cell countsOrdered By: Toña Horton on 05-05-2023 MCH (RBC) [Entitic mass] 28.9 pg 27.0-32.0 [facility] MCHC (RBC) [Mass/Vol] 32.8 g/dL 32-36 [facility] Nucleated RBC/100 WBC (Bld) [Ratio] 0 % 0-5 [facility] Platelet mean volume (Bld) [Entitic vol] 8.7 fL 6.2-12.0 [facility] Platelets (Bld) [#/Vol] 320 10*3/uL 150-450 [facility] Mucus LM Ql (Urine sed)Order ed By: Toña Horton on 05-05-2023 Mucus Ql (Urine sed) 0 SEEN /hpf [facility] Nitrite Test strip Ql (U)Ord ered By: Toña Horton on 05-05-2023 Nitrite Ql (U) Negative Negative [facility] No Panel InformationOrdered By: Toña Horton on 05-05-2023 Urine RBC 0 SEEN /hpf 0-5 [facility] Estimated Creatinine Clearance Calc 102.62 ml/min [facility] Estimated GFR (MDRD) Amer 106 mL/min >60 [facility] Comment on above: GFR Calc Estimated GFR (MDRD) Non-Af Amer 88 mL/min >60 [facility] Comment on above: Non- GFR Calc Protein Test strip Ql (U)Ord ered By: Toña Horton on 05-05-2023 Protein Ql (U) Negative Negative [facility] RBC Auto (Bld) [#/Vol]Ordere d By: Toña Horton on 05-05-2023 RBC (Bld) [#/Vol] 4.64 10*6/uL 4.2-5.4 [facility] Serum or plasma calcium jae urement (mass/volume)Ordered By: Toña Horton on 05-05-2023 Calcium [Mass/Vol] 9.3 mg/dL 8.5-10.1 [facility] Serum or plasma choriogonado tropin detectionOrdered By: Toña Horton on 05-05-2023 HCG ( test) Ql Negative [facility] Serum or plasma creatinine m easurement (mass/volume)Ordered By: Toña Horton on 05-05-2023 Creatinine [Mass/Vol] 0.80 mg/dL 0.55-1.02 [facility] Comment on above: The validity of the calculated GFR & GFRAA in patients over 70 years has not been determined. Clinical correlation is essential. Serum or plasma urea nitroge n measurement (mass/volume)Ordered By: Toña Horton on 05-05-2023 Urea nitrogen [Mass/Vol] 9 mg/dL 7-18 [facility] Squamous epithelial cells de tection in urine sediment by light microscopyOrdered By: Toña Horton on 05-05-2023 Epithelial cells.squamous LM Ql (Urine sed) 0-5 SEEN /hpf 5-10 [facility] Thin prep Papanicolaou smear with manual screeningOrdered By: Toña Horton on 05-05-2023 Thin prep Papanicolaou smear with manual screening 3.9 g/dL 3.2-5.0 [facility] Thin prep Papanicolaou smear with manual screening 15 U/L 15-37 [facility] Thin prep Papanicolaou smear with manual screening 4 5-15 [facility] Urine blood detectionOrdered By: Toña Horton on 05-05-2023 RBC Ql (U) 10 /ul Negative [facility] Urine clarityOrdered By: Ana Rosa Horton on 05-05-2023 Clarity (U) Clear Clear [facility] Urine color determinationOrd ered By: Toña Horton on 05-05-2023 Color (U) Straw Yellow [facility] Urine glucose detectionOrder ed By: Toña Horton on 05-05-2023 Glucose Ql (U) Normal mg/dl Normal [facility] Urine leukocyte esterase det ection by dipstickOrdered By: Toña Horton on 05-05-2023 Leukocyte esterase Test strip Ql (U) Negative Negative [facility] Urine pHOrdered By: Toña Horton on 05-05-2023 pH (U) 6.0 [pH] 5.0 - 8.0 [facility] Urine sediment bacteria coun t by microscopy (number/high power field)Ordered By: Toña Horton on 05-05-2023 Bacteria LM.HPF (Urine sed) [#/Area] 0 /[HPF] None Seen [facility] Urine specific gravity measu rementOrdered By: Toña Horton on 05-05-2023 Specific gravity (U) [Rel density] 1.015 1.002-1.030 [facility] Urine urobilinogen measureme ntOrdered By: Toña Horton on 05-05-2023 Urobilinogen Ql (U) Normal mg/dl Normal [facility] Absolute lymphocyte countOrd ered By: Yolanda Dumont on 01-26-2023 Lymphocytes Auto (Unsp spec) [#/Vol] 6.01 10*3/uL 0.83-4.51 [facility] Basophil percentageOrdered B y: Yolanda Dumont on 01-26-2023 Basophils/100 WBC (Bld) 0.3 % 0-1 [facility] Eosinophils/100 WBC (Bld) 1.7 % 0-5 [facility] Neutrophils (Bld) [#/Vol] 7.9 10*3/uL 2.0-7.7 [facility] Neutrophils/100 WBC (Bld) 52.7 % 47-70 [facility] WBC (Bld) [#/Vol] 14.9 10*3/uL 4.4-11.0 [facility] Basophil percentage 0-5 SEEN /hpf 0-5 [facility] Bilirubin [Mass/Vol] 0.90 mg/dL 0.20-1.00 [facility] Comment on above: For patients on eltr ombopag therapy, use of Dimension [place] TBIL is not recommended. Chloride [Moles/Vol] 106 mmol/L 98-107 [facility] Glucose [Mass/Vol] 89 mg/dL 74-106 [facility] Potassium [Moles/Vol] 3.1 mmol/L 3.5-5.1 [facility] Comment on above: Moderate Hemolysis, Result may be falsely increased. Protein [Mass/Vol] 7.8 g/dL 6.4-8.2 [facility] Sodium [Moles/Vol] 139 mmol/L 136-145 [facility] Bilirubin Test strip Ql (U)O rdered By: Yolanda Dumont on 01-26-2023 Bilirubin Ql (U) Negative Negative [facility] Blood erythrocytes count (nu mber/volume)Ordered By: Yolanda Dumont on 01-26-2023 RBC (Bld) [#/Vol] 4.52 10*6/uL 4.2-5.4 [facility] Blood hemoglobin measurement (mass/volume)Ordered By: Yolanda Dumont on 01-26-2023 Hemoglobin (Bld) [Mass/Vol] 13.4 g/dL 12.0-15.0 [facility] Blood lymphocytes/100 leukoc ytesOrdered By: Yolanda Dumont on 01-26-2023 Lymphocytes/100 WBC (Bld) 40.3 % 19-41 [facility] Blood manual differential co mment interpretation (narrative result)Ordered By: Yolanda Dumont on 01-26-2023 Manual differential comment Apl (Bld) [Interp] SCANNED [facility] Comment on above: LYMPHOCYTOSIS NOTED Blood monocytes/100 leukocyt esOrdered By: Yolanda Dumont on 01-26-2023 Monocytes/100 WBC (Bld) 4.7 % 0-10 [facility] Blood platelet mean volumeOr dered By: Yolanda Dumont on 01-26-2023 Platelet mean volume (Bld) [Entitic vol] 8.7 fL 6.2-12.0 [facility] Determination of erythrocyte mean corpuscular volume (MCV)Ordered By: Yolanad Dumont on 01-26-2023 MCV (RBC) [Entitic vol] 89.6 fL 81-99 [facility] Hematocrit Auto (Bld) [Volum e fraction]Ordered By: Yolanda Dumont on 01-26-2023 Hematocrit (Bld) [Volume fraction] 40.5 % 37-47 [facility] Ketones Test strip Ql (U)Ord ered By: Yolanda Dumont on 01-26-2023 Ketones Ql (U) Negative Negative [facility] Laboratory - Chemistry and C hemistry - challengeOrdered By: Yolanda Dumont on 01-26-2023 HCG ( test) Ql (U) Negative [facility] Comment on above: Very dilute urine sp ecimens, as indicated by a low specificgravity, may not contain administrative representative levels of hCG. If is still suspected, a first morning urinespecimen should be collected 48 hours later and tested. ALP [Catalytic activity/Vol] 65 U/L 45-117 [facility] ALT [Catalytic activity/Vol] 19 U/L 13-56 [facility] CO2 [Moles/Vol] 25.0 mmol/L 21.0-32.0 [facility] Globulin (S) [Mass/Vol] 3.8 g/dL 2.2-4.2 [facility] Lipase [Catalytic activity/Vol] 63 U/L 13-75 [facility] Comment on above: Please note:LIPASE r evised reference range effective 22. New Lipase methodology. Expected to produce lower values than the previous assay method. NEW Reference Range: 13 - 75 U/L Urea nitrogen/Creatinine [Mass ratio] 7.5 mg/mg 10-20 [facility] Laboratory - Hematology and Cell countsOrdered By: Yolanda Dumont on 01-26-2023 Erythrocyte distribution width (RBC) [Entitic vol] 41.5 fL 35.1-43.9 [facility] Erythrocyte distribution width (RBC) [Ratio] 12.6 % 11.6-14.6 [facility] Immature granulocytes/100 WBC (Bld) 0.300 % 0.0-0.9 [facility] Comment on above: IG% - Immature Granu locytes (promyelocytes, myelocytes and metamyelocytes) > 1% indicates that a LEFT SHIFT is Present. MCH (RBC) [Entitic mass] 29.6 pg 27.0-32.0 [facility] Nucleated RBC/100 WBC (Bld) [Ratio] 0 % 0-5 [facility] MCHC Auto (RBC) [Mass/Vol]Or dered By: Yolanda Dumont on 01-26-2023 MCHC (RBC) [Mass/Vol] 33.1 g/dL 32-36 [facility] Mucus LM Ql (Urine sed)Order ed By: Yolanda Dumont on 01-26-2023 Mucus Ql (Urine sed) 0 SEEN /hpf [facility] Nitrite Test strip Ql (U)Ord ered By: Yolanda Dumont on 01-26-2023 Nitrite Ql (U) Negative Negative [facility] No Panel InformationOrdered By: Yolanda Dumont on 01-26-2023 Estimated Creatinine Clearance Calc 62.96 ml/min [facility] Estimated GFR (MDRD) Amer 90 mL/min >60 [facility] Comment on above: GFR Calc Estimated GFR (MDRD) Non-Af Amer 75 mL/min >60 [facility] Comment on above: Non- GFR Calc Platelets bldOrdered By: Alejandrina Dumont on 01-26-2023 Platelets (Bld) [#/Vol] 314 10*3/uL 150-450 [facility] Protein Test strip Ql (U)Ord ered By: Yolanda Dumont on 01-26-2023 Protein Ql (U) Negative Negative [facility] Serum or plasma albumin jae urement (mass/volume)Ordered By: Yolanda Dumont on 01-26-2023 Albumin [Mass/Vol] 4.0 g/dL 3.2-5.0 [facility] Serum or plasma albumin/glob ulin mass ratioOrdered By: Yolanda Dumont on 01-26-2023 Albumin/Globulin [Mass ratio] 1.1 {ratio} 0.9-2.4 [facility] Serum or plasma calcium jae urement (mass/volume)Ordered By: Yolanda Dumont on 01-26-2023 Calcium [Mass/Vol] 9.1 mg/dL 8.5-10.1 [facility] Serum or plasma creatinine m easurement (mass/volume)Ordered By: Yolanda Dumont on 01-26-2023 Creatinine [Mass/Vol] 0.93 mg/dL 0.55-1.02 [facility] Comment on above: The validity of the calculated GFR & GFRAA in patients over 70 years has not been determined. Clinical correlation is essential. Serum or plasma urea nitroge n measurement (mass/volume)Ordered By: Yolanda Dumont on 01-26-2023 Urea nitrogen [Mass/Vol] 7 mg/dL 7-18 [facility] Squamous epithelial cells de tection in urine sediment by light microscopyOrdered By: Yolanda Dumont on 01-26-2023 Epithelial cells.squamous LM Ql (Urine sed) 0-5 SEEN /hpf 5-10 [facility] Thin prep Papanicolaou smear with manual screeningOrdered By: Yolanda Dumont on 01-26-2023 Thin prep Papanicolaou smear with manual screening 22 U/L 15-37 [facility] Comment on above: Moderate Hemolysis, Result may be falsely increased. Thin prep Papanicolaou smear with manual screening 8 - [facility] Urine blood detectionOrdered By: Yolanda Dumont on 01-26-2023 RBC Ql (U) Negative Negative [facility] RBC Ql (U) 0 SEEN /hpf 0-5 [facility] Urine clarityOrdered By: Alejandrina Dumont on 01-26-2023 Clarity (U) Clear Clear [facility] Urine color determinationOrd ered By: Yolanda Dumont on 01-26-2023 Color (U) Yellow Yellow [facility] Urine glucose detectionOrder ed By: Yolanda Dumont on 01-26-2023 Glucose Ql (U) Normal mg/dl Normal [facility] Urine leukocyte esterase det ection by dipstickOrdered By: Yolanda Dumont on 01-26-2023 Leukocyte esterase Test strip Ql (U) Negative Negative [facility] Urine pHOrdered By: Yolanda renae on 01-26-2023 pH (U) 8.0 [pH] 5.0 - 8.0 [facility] Urine sediment bacteria coun t by microscopy (number/high power field)Ordered By: Yolanda Dumont on 01-26-2023 Bacteria LM.HPF (Urine sed) [#/Area] 0 /[HPF] None Seen [facility] Urine specific gravity measu rementOrdered By: Yolanda Dumont on 01-26-2023 Specific gravity (U) [Rel density] 1.010 1.002-1.030 [facility] Urobilinogen Auto test strip Ql (U)Ordered By: Yolanda Dumont on 01-26-2023 Urobilinogen Ql (U) Normal mg/dl Normal [facility] Bacteria identifiedon 2022 Bacteria identified Cx Nom (U) Test: Urine Culture Specimen Source: Clean Catch/Voided Specimen Type: Urine Specimen Date: 12/29/2022 6:00 PM Result Date: 12/31/2022 3:05 PM Result Status: Final result Abnormal: No Resulting Lab: [facility] [id number] [place] [address] CULTURE Normal genitourinary [facility] Comment on above: Performed By: #### 6 30-4 #### BLADIMIR Tavarez ([id number]) [facility] ([facility]) [address] [place], [place] [id number] XR CHEST 2V FRONTAL/LATon [facility] XR Chest PA and Lateralon IMPRESSION: Within normal limits. No acute cardiopulmonary abnormalities. Egg Buyer: PSCB Transcribe Date/Time: Nov 29 2022 3:26P Dictated by : COLLETTE SCOTT MD This examination was interpreted and the report reviewed and electronically signed by: COLLETTE SCOTT MD on Nov 29 2022 3:28PM [facility] DIVISION OF RADIOLOGY * * *Final Report* * * DATE OF EXAM: Nov 29 2022 3:26PM WOX [id number] - XR CHEST 2V FRONTAL/LAT / PROCEDURE REASON: Rhonchi * * * * Physician Interpretation * * * * EXAMINATION: CHEST RADIOGRAPH (2 VIEW FRONTAL & LATERAL), 11/29/2022 CLINICAL HISTORY: Rhonchi MQ: [id number]_6 EXAM DATE/TIME: 11/29/2022 3:26 PM COMPARISON: 06/09/2021 RESULT: Lines, tubes, and devices: None. Lungs and pleura: The lungs are clear. No pleural effusion. No pneumothorax. Cardiomediastinal silhouette: Normal cardiomediastinal silhouette. Bones and soft tissues: Minimal curvature in the lower thoracic spine, convex to the right, and in the thoracolumbar spine, convex left. Osseous structures grossly intact. DIVISION OF RADIOLOGY Provider, [facility] - 11/29/2022 * * *Final Report* * * DATE OF EXAM: Nov 29 2022 3:26PM WOX 5291 - XR CHEST 2V FRONTAL/LAT / PROCEDURE REASON: Rhonchi * * * * Physician Interpretation * * * * EXAMINATION: CHEST RADIOGRAPH (2 VIEW FRONTAL & LATERAL), 11/29/2022 CLINICAL HISTORY: Rhonchi MQ: XC2_6 EXAM DATE/TIME: 11/29/2022 3:26 PM COMPARISON: 06/09/2021 RESULT: Lines, tubes, and devices: None. Lungs and pleura: The lungs are clear. No pleural effusion. No pneumothorax. Cardiomediastinal silhouette: Normal cardiomediastinal silhouette. Bones and soft tissues: Minimal curvature in the lower thoracic spine, convex to the right, and in the thoracolumbar spine, convex left. Osseous structures grossly intact. IMPRESSION IMPRESSION: Within normal limits. No acute cardiopulmonary abnormalities. Egg Buyer: VINNIE Transcribe Date/Time: Nov 29 2022 3:26P Dictated by : COLLETTE SCOTT MD This examination was interpreted and the report reviewed and electronically signed by: COLLETTE SCOTT MD on Nov 29 2022 3:28PM EST [facility] Radiology Study observation (narrative) [facility] XR Chest PA and LateralOrder ed By: [facility] Provider on 11-29-2022 [facility] Provider Note - ED v3on 07-14 Provider Note - ED v3 Provider Note: Chart Review: ED NOTES ED NOTES: Female presents for evaluation of dysuria. Patient reports several days of increased urinary frequency, mild suprapubic discomfort, and hematuria. Patient denies fever, nausea, vomiting, or other constitutional signs and symptoms. Patient reports similar episodes in the past diagnosed as urinary tract infections. No other complaints. HISTORY OF PRESENTING ILLNESS STELLA is a 31 year old Female and was seen by me at 10-Aug-2022 10:09. Triage Information: Most recent Vital Sign Value Date PAST MEDICAL HISTORY ALLERGIES/INTOLERANCES: No Known Allergies HEALTH HISTORY: No documented data. OUTPATIENT MEDICATIONS: Home Medications Review Status for Reconciliation: Complete Med Status: Patient Currently Takes Medications Drug Name: PROzac Instructions: null Drug Name: Protonix Instructions: null Drug Name: Singulair Instructions: null Drug Name: BuSpar Instructions: null Drug Name: Macrobid 100 mg oral capsule Instructions: 1 cap(s) orally 2 times a day SIGNIFICANT EVENTS: No documented data. UROLOGIC NURSE: Is : no Is : no REVIEW OF SYSTEMS All other systems reviewed and are negative REVIEW OF SYSTEMS: Comments See HPI PHYSICAL EXAM CONSTITUTIONAL: Well appearing, well nourished, awake, alert, oriented to person, place, time/situation and in no apparent distress. GASTROINTESTINAL: Abdomen soft, non-distended, no rebound, no guarding, + suprapubic tenderness. Bowel sounds normal in all 4 quadrants. GENITOURINARY: No discharge, no lesions per pt report. No CVA tenderness on exam. NEUROLOGICAL: Alert and oriented, no focal deficits, no motor or sensory deficits. SKIN: Skin normal color for race, warm, dry and intact. No evidence of trauma. PSYCHIATRIC: Alert and oriented to person, place, time/situation. normal mood and affect. No apparent risk to self or others. CRITICAL CARE VITAL SIGNS: T PRBP SpO2O2(LPM) %FiO2 Method 10-Aug-2022 10:03:[id number] 99 MDM MDM/ED COURSE: Discussed Findings with: patient Data Reviewed: vital signs Awaiting: lab results (urine culture) Treatment Plan: Rx Macrobid. Urinalysis with negative leukocytes, negative nitrates, urobilinogen 0.2, negative protein, pH 7.0, moderate blood, specific gravity 1.010, negative ketones, negative bilirubin, negative glucose. Urine sent for culture. Encouraged patient increase water intake, avoid caffeine/energy drinks, void after intercourse, wipe front to back after voiding and bowel movements, avoid baths/hot tubs/pools, avoid tight fitting garments, empty bladder frequently. Patient's clinical presentation is otherwise unremarkable at this time. Patient is discharged with instructions to follow-up with primary care or seek emergency medical attention for worsening symptoms or any new concerns. DISPOSITION Diagnosis/Annotation: ED Dx Name:Burning with urination Code:R30.0 Disposition: discharged Type: home CONSULT CRITICAL CARE TIME Is this a critically ill patient: no Electronic Signatures: Vitaliy Lopez (WEALTH MANAGEMENT MANAGER-LYFT DRIVER) (Signed 10-Aug-2022 10:47) Authored: ED Notes, HPI, PMH, ROS, PE, Results/Vital Signs, MDM/ED Course, Clinical Impression, Attestation, Chart Review, Scores Last Updated: 10-Aug-2022 10:47 by Vitaliy Lopez (WEALTH MANAGEMENT MANAGER-LYFT DRIVER) [facility] URINE CULTURE,BACTERIALon URINE CULTURE,BACTERIAL PATIENT: STELLA COLLINS LOCATION: [facility] [place] BILL#: [id number] : 89 AGE: SEX: F ORDERED BY: VITALIY LOPEZ SOURCE: URINE COLLECTED: 08/10/22 10:41 ANTIBIOTICS AT [place].: RECEIVED : 08/11/22 01:14 SITE: Clean Catch/Voided R E S U L T S URINE CULTURE,BACTERIAL FINAL 08/11/22 17:24 NO SIGNIFICANT GROWTH. Normal [facility] Comment on above: Performed By: #### U [facility] #### [facility] [address] [place] [address] STREP A MOLECULAR (POC)on Procedural Control Valid [facility] Strep A (POCT) Negative Negative [facility] HCG QUAL UR B/Oon 03-30-2022 status Negative neg - pos [facility] Quality Check Yes [facility] BACTERIAL VAGINOSIS AMPLIFIC ATIONon 03-18-2022 Lactobacillus crispatus+gasseri+ana rosa senii + Gardnerella vaginalis + Atopobium vaginae rRNA TROY+probe Ql (Vag fld) Negative Negative for bacterial vaginosis [facility] C. trachomatis+N. gonorrhoea e DNA TROY+probe Ql (Unsp spec)on 03-18-2022 C. trachomatis DNA TROY+probe Ql (Unsp spec) Negative Negative for Chlamydia trachomatis by amplificaton [facility] N. gonorrhoeae DNA TROY+probe Ql (Unsp spec) Negative Negative for Neisseria gonorrhoeae by amplification [facility] MAYA / TRICHOMONAS AMPLIF ICATIONon 03-18-2022 C. glabrata RNA TROY+probe Ql (Vag fld) Negative Negative for Maya glabrata [facility] Maya albicans, C. dubliniensis, C. parapsilosis, and C. tropicalis RNA TROY+probe Ql (Vag fld) Negative Negative for Maya species [facility] T. vaginalis DNA TROY+probe Ql (Unsp spec) Negative Negative for Trichomonas vaginalis by amplification [facility] No Panel Informationon 01-18 Radiology Study observation (narrative) [facility] XR Lumbar spine 3 Viewson IMPRESSION: Negative lumbar spine X-ray. Egg Buyer: PSCB Transcribe Date/Time: Jan 18 2022 3:49P Dictated by : DARIEL LANE MD This examination was interpreted and the report reviewed and electronically signed by: DARIEL LANE MD on Jan 18 2022 3:49PM [facility] DIVISION OF RADIOLOGY * * *Final Report* * * DATE OF EXAM: Jan 18 2022 12:00PM WOX 5228 - XR LUMBAR 3V AP/LAT/L5-S1 / PROCEDURE REASON: multiple diagnoses * * * * Physician Interpretation * * * * EXAM TITLE: XR LUMBAR 3V AP/LAT/L5-S1 EXAM DATE/TIME: 01/18/2022 12:00 PM COMPARISON: None. CLINICAL INDICATION/HISTORY: Low back pain. TECHNIQUE: AP, lateral and cone down lateral views of the lumbar spine are presented. FINDINGS: There are five aow-qum-tvetzuc lumbar vertebrae. No fracture or subluxations are noted. The disc spaces are well preserved. There is no significant osteophyte formation. DIVISION OF RADIOLOGY Provider, [facility] - 01/18/2022 * * *Final Report* * * DATE OF EXAM: Jan 18 2022 12:00PM WOX 5228 - XR LUMBAR 3V AP/LAT/L5-S1 / PROCEDURE REASON: multiple diagnoses * * * * Physician Interpretation * * * * EXAM TITLE: XR LUMBAR 3V AP/LAT/L5-S1 EXAM DATE/TIME: 01/18/2022 12:00 PM COMPARISON: None. CLINICAL INDICATION/HISTORY: Low back pain. TECHNIQUE: AP, lateral and cone down lateral views of the lumbar spine are presented. FINDINGS: There are five nkg-adj-yaumont lumbar vertebrae. No fracture or subluxations are noted. The disc spaces are well preserved. There is no significant osteophyte formation. IMPRESSION IMPRESSION: Negative lumbar spine X-ray. Egg Buyer: VINNIE Transcribe Date/Time: Jan 18 2022 3:49P Dictated by : DARIEL LANE MD This examination was interpreted and the report reviewed and electronically signed by: DARIEL LANE MD on Jan 18 2022 3:49PM EST [facility] XR Lumbar spine 3 ViewsOrder ed By: Ccf Provider on 01-18-2022 [facility] XR Sacroiliac Joint Viewson 01-18-2022 IMPRESSION: Negative SI joint x-ray. Egg Buyer: PSCB Transcribe Date/Time: Jan 18 2022 3:49P Dictated by : DARIEL LANE MD This examination was interpreted and the report reviewed and electronically signed by: DARIEL LANE MD on Jan 18 2022 3:51PM EST DIVISION OF RADIOLOGY * * *Final Report* * * DATE OF EXAM: Jan 18 2022 12:00PM WOX 5245 - XR SI JTS 2V AP PELV/FIGUEROA / PROCEDURE REASON: multiple diagnoses * * * * Physician Interpretation * * * * EXAM TITLE: XR SI JTS 2V AP PELV/FIGUEROA EXAM DATE/TIME: 01/18/2022 12:00 PM COMPARISON: None. CLINICAL INDICATION/HISTORY: Low back pain. TECHNIQUE: AP and Figueroa views of the bilateral SI joints are presented. FINDINGS: The bilateral SI joints are symmetric in appearance without joint space narrowing or widening. No bony erosions seen along the SI joints. The visualized pelvic bones are intact. There is no significant soft tissue swelling. DIVISION OF RADIOLOGY Provider, [facility] - 01/18/2022 * * *Final Report* * * DATE OF EXAM: Jan 18 2022 12:00PM WOX 5245 - XR SI JTS 2V AP PELV/FIGUEROA / PROCEDURE REASON: multiple diagnoses * * * * Physician Interpretation * * * * EXAM TITLE: XR SI JTS 2V AP PELV/FIGUEROA EXAM DATE/TIME: 01/18/2022 12:00 PM COMPARISON: None. CLINICAL INDICATION/HISTORY: Low back pain. TECHNIQUE: AP and Figueroa views of the bilateral SI joints are presented. FINDINGS: The bilateral SI joints are symmetric in appearance without joint space narrowing or widening. No bony erosions seen along the SI joints. The visualized pelvic bones are intact. There is no significant soft tissue swelling. IMPRESSION IMPRESSION: Negative SI joint x-ray. Egg Buyer: PSCB Transcribe Date/Time: Jan 18 2022 3:49P Dictated by : DARIEL LANE MD This examination was interpreted and the report reviewed and electronically signed by: DARIEL LANE MD on Jan 18 2022 3:51PM EST [facility] CORONAVIRUS 2019 BY PCRon SARS-CoV-2 (COVID-19) RNA TROY+probe Ql (Unsp spec) Detected Abnormal Not Detected [facility] Comment on above: Order Comment: Portia AGUILAR to ARACELI ROWELL , 11/15/2021 10:59 Result Comment: . This assay is designed to detect the N, ORF1ab and/or S genes of SARS-CoV-2 via nucleic acid amplification. A Negative (NOT DETECTED) result does not preclude 2019-nCoV infection since the adequacy of sample collection and/or low viral burden may result in presence of viral nucleic acids below the clinical sensitivity of this test method. Negative (NOT DETECTED) result should not be used as the sole basis for treatment or other patient management decisions. Rather negative results should be combined with clinical observations, patient history, and epidemiological information to make patient management decisions. Fact sheet for providers: https://www.fda.gov/media/286012/download Fact sheet for patients: https://www.fda.gov/media/931208/download This test has received FDA Emergency Use Authorization (EUA) and has been verified by [facility] ([facility]). This test is only authorized for the duration of time that circumstances exist to justify the authorization of the emergency use of in vitro diagnostic tests for the detection of SARS-CoV-2 virus and/or diagnosis of COVID-19 infection under section 564(b)(1) of the Act, 21 U.S.C. 360bbb-3(b)(1), unless the authorization is terminated or revoked sooner. [facility] is certified under CLIA-88 as qualified to perform high complexity testing. Testing is performed in the [facility] laboratories located at [address] [place] [address]. Called- RB to ARACELI ROWELL , 11/15/2021 10:59 Performed By: #### C OV19 #### [address] [place] [address] Lab Specimen Source Nasal, Nasopharyngeal Normal [facility] Comment on above: Order Comment: Pearce d- RB to ARACELI ROWELL , 11/15/2021 10:59 Performed By: #### C OV19 #### [address] [place] [address] Coronavirus 2019 RNA by PCR, Symptomaticon 11-14-2021 Coronavirus 2019 RNA by PCR, Symptomatic Detected Abnormal See Below [facility] Work Phone: Comment on above: SOURCE: Nasal, Nasop haryngealReference Range: Not Detected.This assay is designed to detect the N, ORF1ab and/or S genes of SARS-CoV-2 via nucleic acid amplification. A Negative (NOT DETECTED) result does not preclude 2019-nCoV infection since the adequacy of sample collection and/or low viral burden may result in presence of viral nucleic acids below the clinical sensitivity of this test method. Negative (NOT DETECTED) result should not be used as the sole basis for treatment or other patient management decisions. Rather negative results should be combined with clinical observations, patient history, and epidemiological information to make patient management decisions.Fact sheet for providers: https://www.fda.gov/media/477367/downloadFact sheet for patients: https://www.fda.gov/media/581148/downloadThis test has received FDA Emergency Use Authorization (EUA) and has been verified by [facility] ([facility]). This test is only authorized for the duration of time that circumstances exist to justify the authorization of the emergency use of in vitro diagnostic tests for the detection of SARS-CoV-2 virus and/or diagnosis of COVID-19 infection under section 564(b)(1) of the Act, 21 U.S.C. 360bbb-3(b)(1), unless the authorization is terminated or revoked sooner. [facility] is certified under CLIA-88 as qualified to perform high complexity testing. Testing is performed in the [facility] laboratories located at [address] [place] [address]. Called- RB to ARACELI ROWELL , 11/15/2021 10:59 NITRIC OXIDE, EXHALEDon 06-1 [facility] SPIROMETRY WITH DILATOR IF O BSTRUCTEDon 08-21-2021 [id number]% PRE (L/S) 3.76 L/S [facility] FEV1 PRE (L) 3.[address] [facility] FEV1/FVC PRE (%) 0.85 % [facility] FVC PRE (L) 3.[address] [facility] PEF PRE (L/S) 6.60 L/S [facility] XR Foot - right AP and Later al and obliqueon 07-13-2021 IMPRESSION: Negative right foot. Egg Buyer: PSCB Transcribe Date/Time: Jul 13 2021 7:02P Dictated by : MEAGHAN BADILLO MD This examination was interpreted and the report reviewed and electronically signed by: MEAGHAN BADILLO MD on Jul 13 2021 7:32PM EST Z[facility]_DO_NOT_ USE_DIVISIO N OF RADIOLOGY * * *Final Report* * * DATE OF EXAM: Jul 13 2021 6:46PM WOX 5337 - XR FOOT 3V AP/LAT/OBL RT / PROCEDURE REASON: Pain of toe of right foot * * * * Physician Interpretation * * * * RIGHT FOOT X-RAY SERIES HISTORY: Pain of toe TECHNIQUE: AP bilateral feet, lateral and oblique views of the right foot. COMPARISON: None available. RESULT: No fracture, dislocation or destructive changes. Joint spaces and articular surfaces are preserved. [facility]_DO_NOT_ USE_DIVISIO N OF RADIOLOGY Provider, [facility] - 07/13/2021 * * *Final Report* * * DATE OF EXAM: Jul 13 2021 6:46PM WOX 5337 - XR FOOT 3V AP/LAT/OBL RT / PROCEDURE REASON: Pain of toe of right foot * * * * Physician Interpretation * * * * RIGHT FOOT X-RAY SERIES HISTORY: Pain of toe TECHNIQUE: AP bilateral feet, lateral and oblique views of the right foot. COMPARISON: None available. RESULT: No fracture, dislocation or destructive changes. Joint spaces and articular surfaces are preserved. IMPRESSION IMPRESSION: Negative right foot. Egg Buyer: KINGSTONB Transcribe Date/Time: Jul 13 2021 7:02P Dictated by : MEAGHAN BADILLO MD This examination was interpreted and the report reviewed and electronically signed by: MEAGHAN BADILLO MD on Jul 13 2021 7:32PM EST [facility] Radiology Study observation (narrative) [facility] XR Foot - right AP and Later al and obliqueOrdered By: Ccf Provider on 07-13-2021 [facility] XR Chest PA and Lateralon IMPRESSION: No acute radiographic abnormality. Egg Buyer: PSCB Transcribe Date/Time: Jun 09 2021 3:11P Dictated by : DARIEL LANE MD This examination was interpreted and the report reviewed and electronically signed by: DARIEL LANE MD on Jun 09 2021 3:12PM EST DIVISION OF RADIOLOGY * * *Final Report* * * DATE OF EXAM: Jun 09 2021 2:48PM WOX 5291 - XR CHEST 2V FRONTAL/LAT / PROCEDURE REASON: multiple diagnoses * * * * Physician Interpretation * * * * EXAMINATION: CHEST RADIOGRAPH (2 VIEW FRONTAL & LATERAL) CLINICAL HISTORY: Smoker Cough MQ: XC2_6 EXAM DATE/TIME: 06/09/2021 2:48 PM COMPARISON: Chest x-ray on 05/06/2019. RESULT: Lines, tubes, and devices: None. Lungs and pleura: No consolidation. No lung mass. No pleural effusion. No pneumothorax. Cardiomediastinal silhouette: Normal cardiomediastinal silhouette. Bones and soft tissues: There appears be subluxation of the bilateral acromioclavicular joints. DIVISION OF RADIOLOGY Provider, [facility] - 06/09/2021 * * *Final Report* * * DATE OF EXAM: Jun 09 2021 2:48PM WOX 5291 - XR CHEST 2V FRONTAL/LAT / PROCEDURE REASON: multiple diagnoses * * * * Physician Interpretation * * * * EXAMINATION: CHEST RADIOGRAPH (2 VIEW FRONTAL & LATERAL) CLINICAL HISTORY: Smoker Cough MQ: XC2_6 EXAM DATE/TIME: 06/09/2021 2:48 PM COMPARISON: Chest x-ray on 05/06/2019. RESULT: Lines, tubes, and devices: None. Lungs and pleura: No consolidation. No lung mass. No pleural effusion. No pneumothorax. Cardiomediastinal silhouette: Normal cardiomediastinal silhouette. Bones and soft tissues: There appears be subluxation of the bilateral acromioclavicular joints. IMPRESSION IMPRESSION: No acute radiographic abnormality. Egg Buyer: PSCB Transcribe Date/Time: Jun 09 2021 3:11P Dictated by : DARIEL LANE MD This examination was interpreted and the report reviewed and electronically signed by: DARIEL LANE MD on Jun 09 2021 3:12PM EST [facility] Radiology Study observation (narrative) [facility] XR Chest PA and LateralOrder ed By: Ccf Provider on 06-09-2021 [facility] .Manual Abson 09-08-2017 Basophil Abs Man 0.0 10x3/ Normal 0.0-0.2 [facility] Comment on above: Order Comment: Order Added by James Expert. Performed By: #### 3 [id number] ####SUSY [address] [place] [address] Eos Abs Man 0.4 10x3/ Normal 0.0-0.5 [facility] Comment on above: Order Comment: Order Added by Discern Expert. Performed By: #### 3 [id number] ####SUSY [address] [place] [address] Lymphocytes 3.6 10x3/ High 1.2-3.4 [facility] Comment on above: Order Comment: Order Added by James Expert. Performed By: #### 3 [id number] ####SUSY [address] [place] [address] Nash Abs Man 0.6 10x3/ Normal 0.0-0.7 [facility] Comment on above: Order Comment: Order Added by James Expert. Performed By: #### 3 [id number] ####SUSY [address] [place] [address] Segs Abs Man 15.5 10x3/ High 1.4-6.5 [facility] Comment on above: Order Comment: Order Added by James Expert. Performed By: #### 3 [id number] ####SUSY [address] [place] [address] CBC w/ Auto Diffon 8 Erythrocyte distribution width Auto Ratio (RBC) 13.5 % Normal 11.5-14.5 [facility] Comment on above: Performed By: #### 2 [id number] ####SUSY [address] [place] [address] Erythrocytes (RBC) 5.29 E6/mcL Normal 3.90-5.40 [facility] Comment on above: Performed By: #### 2 [id number] ####SUSY [address] [place] [id number] Hematocrit (HCT) 44.2 % Normal 36.0-48.0 [facility] Comment on above: Performed By: #### 2 [id number] ####SUSY [address] [place] [address] Hemoglobin mass conc (Bld) 15.1 g/dL Normal 12.0-16.0 [facility] Comment on above: Performed By: #### 2 [id number] ####SUSY [address] [place] [address] MCH 28.6 pg Normal 27.0-31.0 [facility] Comment on above: Performed By: #### 2 [id number] ####SUSY [address] [place] [id number] MCHC mass conc (RBC) 34.2 g/dL Normal 33.0-37.0 [facility] Comment on above: Performed By: #### 2 [id number] ####SUSY [address] [place] [address] MCV 83.6 fL Normal 78.0-100.0 [facility] Comment on above: Performed By: #### 2 [id number] ####SUSY [address] [place] [id number] Platelet mean volume (PMV) 7.8 fL Normal 7.4-11.0 [facility] Comment on above: Performed By: #### 2 [id number] ####SUSY [address] [place] [address] Platelets 329 E3/mcL Normal 130-400 [facility] Comment on above: Performed By: #### 2 136212 ####SUSY [address] [place] [address] WBC (Leukocytes) 20.1 E3/mcL High 3.6-11.0 [facility] Comment on above: Performed By: #### 2 [id number] ####SUSY [address] [place] [address] CMPon 09-08-2017 Alanine aminotransferase (ALT) 19 Int._Unit/L Normal 10-40 [facility] Comment on above: Performed By: #### 2 [id number] ####SUSY [address] [place] [address] Albumin 4.7 g/dL Normal 3.2-5.0 [facility] Comment on above: Performed By: #### 2 240648 ####SUSY [address] [place] [address] Albumin/Globulin Ratio 1.3 {ratio} Normal 1.1-1.9 [facility] Comment on above: Performed By: #### 2 949248 ####SUSY [address] [place] [address] Alk Phos 66 Int._Unit/L Normal 42-121 [facility] Comment on above: Performed By: #### 2 588306 ####SUSY [address] [place] [address] Aspartate aminotransferase (AST) 21 Int._Unit/L Normal 10-42 [facility] Comment on above: Performed By: #### 2 130437 ####SUSY [address] [place] [address] Bili Total 0.7 mg/dL Normal 0.2-1.0 [facility] Comment on above: Performed By: #### 2 046184 ####SUSY [address] [place] [address] BUN/Creatinine Ratio 11.2 ratio Normal 5.4-30.0 [facility] Comment on above: Performed By: #### 2 633779 ####SUSY [address] [place] [address] Creatinine 0.8 mg/dL Normal 0.6-1.3 [facility] Comment on above: Performed By: #### 2 043868 ####SUSY [address] [place] [address] Globulin 3.7 g/dL Normal 2.0-4.0 [facility] Comment on above: Performed By: #### 2 891901 ####SUSY [address] [place] [address] Protein 8.4 g/dL High 6.4-8.3 [facility] Comment on above: Performed By: #### 2 954150 ####SUSY [address] [place] [address] Urea nitrogen 9 mg/dL Normal 7-18 [facility] Comment on above: Performed By: #### 2 797004 ####SUSY [address] [place] [address] Calcium 9.3 mg/dL Normal 8.4-10.2 [facility] Comment on above: Performed By: #### 2 463513 ####SUSY [address] [place] [address] Chloride 103 mmol/L Normal 98-107 [facility] Comment on above: Performed By: #### 2 906377 ####SUSY [address] [place] [address] CO2 23.7 mmol/L Low 24.0-30.0 [facility] Comment on above: Performed By: #### 2 274875 ####SUSY [address] [place] [id number] Glucose mass conc 94 mg/dL Normal 70-99 [facility] Comment on above: Performed By: #### 2 265456 ####SUSY [address] [place] 6269205 Potassium molar conc 2.9 mmol/L Low 3.5-5.1 [facility] Comment on above: Performed By: #### 2 479011 ####SUSY [address] [place] 6269[address] Sodium 138 mmol/L Normal 136-145 [facility] Comment on above: Performed By: #### 2 398562 ####SUSY [address]we[address] [place] [address] CT Abdomen/Pelvis w/ Contras ton 09-08-2017 CT Abdomen/Pelvis w/ Contrast Exam Date/Time:09/07/2017 23:52 EDTReason for Exam:Nausea with vomitingReportSTUDY:CT Abdomen/Pelvis w/ Contrast; 09/07/2017 11:52 pmINDICATION:Nausea and vomitingCOMPARISON:None. 85ORDERING CLINICIAN:Jana Taylor:Mirian iglesvia axial images of the abdomen and pelvis were obtained after the intravenous administration of 100 mL of Omnipaque 350. Coronal and sagittal reformatted images were obtained from the axial images.FINDINGS:Mild basilar subsegmental atelectasis.No pleural effusion.There is hepatic steatosis. The gallbladder is present. No evidence of calcified gallstones. No dilatation of the common bile duct.The pancreas, spleen, and adrenal glands appear unremarkable.Symmetric enhancement of the kidneys.No hydronephrosis.Small fat containing paraumbilical hernia.No evidence of bowel obstruction or acute appendicitis.Urinary bladder is underdistended and not well evaluated.Limited evaluation the uterus and adnexa.No evidence of significant free abdominal or pelvic fluid.No evidence of acute fracture of the lumbar spine.IMPRESSION:No evidence of acute abnormality of the abdominal viscera.Exam Date/Time:09/07/2017 23:52 EDTReportNo evidence of bowel obstruction or acute appendicitis. FINAL REPORT Dictated: 09/08/2017 0:02 am Sergei Rosa MD DSigned (Electronic Signature): 09/08/2017 0:02 amSigned by: Sergei Rosa MD Technologist: ADELA Normal [facility] Lipase Levelon 09-08-2017 Lipase Lvl 36 U/L Normal 8-57 [facility] Comment on above: Performed By: #### 2 [id number] ####SUSY [address] [place] [address] Manual Diffon 09-08-2017 Basophils/100 WBC Auto (Bld) 0 % Normal 0-1 [facility] Comment on above: Order Comment: Order Added by Discern Expert. Performed By: #### 2 [id number] ####SUSY [address] [place] [address] Eosinophils/100 leukocytes 2 % Normal 0-5 [facility] Comment on above: Order Comment: Order Added by Discern Expert. Performed By: #### 2 [id number] ####SUSY [address]Eqzd[address] [place] [address] Erythrocyte morphology NORMAL Normal [facility] Comment on above: Order Comment: Order Added by Discern Expert. Performed By: #### 2 314071 ####SUSY [address] [place] [address] Lymphocytes/100 leukocytes 18 % Normal 14-48 [facility] Comment on above: Order Comment: Order Added by Discern Expert. Performed By: #### 2 614507 ####SUSY [address] [place] [address] Monocytes/100 leukocytes 3 % Normal 1-11 [facility] Comment on above: Order Comment: Order Added by Discern Expert. Performed By: #### 2 855320 ####SUSY [address] [place] [address] Segs Man 77 % High 37-75 [facility] Comment on above: Order Comment: Order Added by Discern Expert. Performed By: #### 2 303135 ####SUSY [address] [place] 6269[address] U BhCG Qlton 09-08-2017 HCG.beta subunit Qn Negative Normal Neg [facility] Comment on above: Performed By: #### 2 [id number] ####SUSY Urinalysis Manual [address] [place] [address] UA Completeon 09-08-2017 UA Blood Negative Normal Negative [facility] Comment on above: Performed By: #### 8 [id number] ####SUSY Urinalysis Automated [address] [place] [address] UA Bacteria Trace Abnormal None [facility] Comment on above: Performed By: #### 8 [id number] ####SUSY Urinalysis Automated [address] [place] [address] UA Clarity SltCloudy Abnormal Clear [facility] Comment on above: Performed By: #### 8 [id number] ####SUSY Urinalysis Automated [address] [place] [address] UA Leuk Est Negative Normal Negative [facility] Comment on above: Performed By: #### 8 [id number] ####SUSY Urinalysis Automated [address] [place] [address] UA Mucous Trace Abnormal Trace [facility] Comment on above: Performed By: #### 8 [id number] ####SUSY Urinalysis Automated [address] [place] 6[address] UA Nitrite Negative Normal Negative [facility] Comment on above: Performed By: #### 8 [id number] ####SUSY Urinalysis Automated [address] [place] [address] UA pH 6.0 Normal 4.6-8.0 [facility] Comment on above: Performed By: #### 8 [id number] ####SUSY Urinalysis Automated [address] [place] [address] UA Protein Negative Normal Negative [facility] Comment on above: Performed By: #### 8 [id number] ####SUSY Urinalysis Automated [address] [place] [address] UA Spec Grav 1.009 Normal 1.003-1.030 [facility] Comment on above: Performed By: #### 8 [id number] ####SUSY Urinalysis Automated [address] [place] [address] UA Squam Epithelial 0-5 Normal 0-5 [facility] Comment on above: Performed By: #### 8 [id number] ####SUSY Urinalysis Automated [address] [place] [address] UA Urobilinogen Negative Normal [facility] Comment on above: Performed By: #### 8 [id number] ####SUSY Urinalysis Automated [address] [place] [address] UA WBC 0-5 Normal 0-5 [facility] Comment on above: Performed By: #### 8 [id number] ####SUSY Urinalysis Automated [address] [place] [address] Urine, color Yellow Normal Yellow [facility] Comment on above: Performed By: #### 8 [id number] ####SUSY Urinalysis Automated [address] [place] [address] Urine, erythrocytes 0-3 Normal 0-3 [facility] Comment on above: Performed By: #### 8 [id number] ####SUSY Urinalysis Automated [address] [place] [address] Urine, glucose Negative Normal Negative [facility] Comment on above: Performed By: #### 8 [id number] ####SUSY Urinalysis Automated [address] [place] [address] Urine, ketones presence Negative Normal Negative [facility] Comment on above: Performed By: #### 8 [id number] ####SUSY Urinalysis Automated [address] [place] [address] Urine, urobilinogen Negative Normal Negative [facility] Comment on above: Performed By: #### 8 [id number] ####SUSY Urinalysis Automated [address] [place] [address] eGFRon 09-08-2017 eGFR (non-black) mL/min/{1.73_m2} Normal [facility] Comment on above: Order Comment: Order added by Discern Expert. Performed By: #### 1 [id number] ####SUSY [address] [place] [address] Vital Signs Date Time Vital Sign Value Performing Clinician Santos de luna 08-20-2024 15:47-0400 Body mass index (BMI) [Ratio] 40.61 kg/m2 Tressa Bin WEALTH MANAGEMENT MANAGER.LYFT DRIVER Work Phone: [facility] 08-20-2024 15:47-0400 Body temperature 98.29 [degF] Tressa Bin WEALTH MANAGEMENT MANAGER.LYFT DRIVER Work Phone: [facility] 08-20-2024 15:47-0400 Body weight 97.5 kg Tressa Bin WEALTH MANAGEMENT MANAGER.LYFT DRIVER Work Phone: [facility] 08-20-2024 15:47-0400 Diastolic blood pressure 90 mm[Hg] Tressa Bin WEALTH MANAGEMENT MANAGER.LYFT DRIVER Work Phone: [facility] 08-20-2024 15:47-0400 Heart rate 110 /min Tressa Bin WEALTH MANAGEMENT MANAGER.LYFT DRIVER Work Phone: [facility] 08-20-2024 15:47-0400 Respiratory rate 20 /min Tressa Bin WEALTH MANAGEMENT MANAGER.LYFT DRIVER Work Phone: [facility] 08-20-2024 15:47-0400 SaO2% (BldA) [Mass fraction] 98 % Tressa Bin WEALTH MANAGEMENT MANAGER.LYFT DRIVER Work Phone: [facility] 08-20-2024 15:47-0400 Systolic blood pressure 130 mm[Hg] Tressa Bin WEALTH MANAGEMENT MANAGER.LYFT DRIVER Work Phone: [facility] 07-22-2024 11:51-0400 Diastolic Blood Pressure Non-Invasive 83 mm[Hg] MADDY FROMMELT DO [facility] 07-22-2024 11:51-0400 Heart rate 108 /min MADDY FROMMELT DO [facility] 07-22-2024 11:51-0400 Mean blood pressure 92 mm[Hg] MADDY FROMMELT DO [facility] 07-22-2024 11:51-0400 Respiratory rate 16 /min MADDY FROMMELT DO [facility] 07-22-2024 11:51-0400 Systolic Blood Pressure Non-Invasive 113 mm[Hg] MADDY FROMMELT DO [facility] 07-22-2024 09:01-0400 Diastolic Blood Pressure Non-Invasive 79 mm[Hg] MADDY FROMMELT DO [facility] 07-22-2024 09:01-0400 Heart rate 89 /min MADDY FROMMELT DO [facility] 07-22-2024 09:01-0400 Respiratory rate 16 /min MADDY FROMMELT DO [facility] 07-22-2024 09:01-0400 Systolic Blood Pressure Non-Invasive 113 mm[Hg] MADDY FROMMELT DO [facility] 07-22-2024 07:14-0400 Diastolic Blood Pressure Non-Invasive 64 mm[Hg] MADDY FROMMELT DO [facility] 07-22-2024 07:14-0400 Heart rate 85 /min MADDY FROMMELT DO [facility] 07-22-2024 07:14-0400 Respiratory rate 16 /min MADDY FROMMELT DO [facility] 07-22-2024 07:14-0400 Systolic Blood Pressure Non-Invasive 102 mm[Hg] MADDY RODGERS DO [facility] 07-22-2024 03:26-0400 Reason For Taking VItal Signs MADDY RODGERS DO [facility] 07-22-2024 02:53-0400 Reason For Taking VItal Signs MADDY RODGERS DO [facility] 06-09-2024 15:09-0400 Body mass index (BMI) [Ratio] 39.61 kg/m2 Lucia Clutter PA-C Work Phone: [facility] 06-09-2024 15:09-0400 Body temperature 98.4 [degF] Lucia Clutter PA-C Work Phone: [facility] 06-09-2024 15:09-0400 Body weight 95.1 kg Lucia Clutter PA-C Work Phone: [facility] 06-09-2024 15:09-0400 Diastolic blood pressure 82 mm[Hg] Lucia Clutter PA-C Work Phone: [facility] 06-09-2024 15:09-0400 Heart rate 128 /min Lucia Clutter PA-C Work Phone: [facility] 06-09-2024 15:09-0400 Respiratory rate 18 /min Lucia Clutter PA-C Work Phone: [facility] 06-09-2024 15:09-0400 SaO2% (BldA) [Mass fraction] 97 % Lucia Clutter PA-C Work Phone: [facility] 06-09-2024 15:09-0400 Systolic blood pressure 128 mm[Hg] Lucia Clutter PA-C Work Phone: [facility] 03-27-2024 12:19-0500 Body mass index (BMI) [Ratio] 39.57 kg/m2 Antonette Rowell APRN.CNP Work Phone: [facility] 03-27-2024 12:19-0500 Body temperature 97.3 [degF] Antonette Sorin WEALTH MANAGEMENT MANAGER.LYFT DRIVER Work Phone: [facility] 03-27-2024 12:19-0500 Body weight 95 kg Antonette Rowell WEALTH MANAGEMENT MANAGER.LYFT DRIVER Work Phone: [facility] 03-27-2024 12:19-0500 Diastolic blood pressure 82 mm[Hg] Antonette Sorin WEALTH MANAGEMENT MANAGER.LYFT DRIVER Work Phone: [facility] 03-27-2024 12:19-0500 Heart rate 114 /min Antonette Rowell WEALTH MANAGEMENT MANAGER.LYFT DRIVER Work Phone: [facility] 03-27-2024 12:19-0500 Respiratory rate 18 /min Antonette Rowell WEALTH MANAGEMENT MANAGER.LYFT DRIVER Work Phone: [facility] 03-27-2024 12:19-0500 SaO2% (BldA) [Mass fraction] 100 % Antonette Rowell WEALTH MANAGEMENT MANAGER.LYFT DRIVER Work Phone: [facility] 03-27-2024 12:19-0500 Systolic blood pressure 128 mm[Hg] Antonette Rowell WEALTH MANAGEMENT MANAGER.LYFT DRIVER Work Phone: [facility] 03-26-2024 14:15-0500 Body mass index (BMI) [Ratio] 39.53 kg/m2 Krislyn Aberegg PA Work Phone: [facility] 03-26-2024 14:15-0500 Body temperature 97.81 [degF] Krislyn Aberegg PA Work Phone: [facility] 03-26-2024 14:15-0500 Body weight 94.9 kg Krislyn Aberegg PA Work Phone: [facility] 03-26-2024 14:15-0500 Diastolic blood pressure 92 mm[Hg] Krislyn Aberegg PA Work Phone: [facility] 03-26-2024 14:15-0500 Heart rate 120 /min Krislyn Aberegg PA Work Phone: [facility] 03-26-2024 14:15-0500 Respiratory rate 16 /min Krislyn Aberegg PA Work Phone: [facility] 03-26-2024 14:15-0500 SaO2% (BldA) [Mass fraction] 99 % Krislyn Aberegg PA Work Phone: [facility] 03-26-2024 14:15-0500 Systolic blood pressure 140 mm[Hg] Krislyn Aberegg PA Work Phone: [facility] 01-17-2024 12:08-0500 Body mass index (BMI) [Ratio] 39.11 kg/m2 Abeba Chase WEALTH MANAGEMENT MANAGER.EQUIPMENT OPERATOR [employer]AL [employer]ARD Work Phone: [facility] 01-17-2024 12:08-0500 Body weight 93.9 kg Abeba Chase WEALTH MANAGEMENT MANAGER.EQUIPMENT OPERATOR INTER[employer]AL YARD Work Phone: [facility] 01-17-2024 12:08-0500 Diastolic blood pressure 90 mm[Hg] Abeba Chase WEALTH MANAGEMENT MANAGER.EQUIPMENT OPERATOR INTER[employer]AL YARD Work Phone: [facility] 01-17-2024 12:08-0500 Heart rate 125 /min Abeba Chase WEALTH MANAGEMENT MANAGER.EQUIPMENT OPERATOR INTER[employer]AL [employer]ARD Work Phone: [facility] 01-17-2024 12:08-0500 Respiratory rate 16 /min Abeba Chase WEALTH MANAGEMENT MANAGER.EQUIPMENT OPERATOR [employer]AL YARD Work Phone: [facility] 01-17-2024 12:08-0500 Systolic blood pressure 134 mm[Hg] Abeba Chase WEALTH MANAGEMENT MANAGER.EQUIPMENT OPERATOR [employer] YARD Work Phone: [facility] 12-14-2023 19:09-0400 Body mass index (BMI) [Ratio] 39.86 kg/m2 Arline Caraballo WEALTH MANAGEMENT MANAGER.LYFT DRIVER Work Phone: [facility] 12-14-2023 19:09-0400 Body temperature 97.3 [degF] Arline Caraballo WEALTH MANAGEMENT MANAGER.LYFT DRIVER Work Phone: [facility] 12-14-2023 19:09-0400 Body weight 95.7 kg Arline Caraballo WEALTH MANAGEMENT MANAGER.LYFT DRIVER Work Phone: [facility] 12-14-2023 19:09-0400 Diastolic blood pressure 70 mm[Hg] Arline Caraballo WEALTH MANAGEMENT MANAGER.LYFT DRIVER Work Phone: [facility] 12-14-2023 19:09-0400 Heart rate 114 /min Arline Caraballo WEALTH MANAGEMENT MANAGER.LYFT DRIVER Work Phone: [facility] 12-14-2023 19:09-0400 Respiratory rate 19 /min Arline Caraballo WEALTH MANAGEMENT MANAGER.LYFT DRIVER Work Phone: [facility] 12-14-2023 19:09-0400 SaO2% (BldA) [Mass fraction] 98 % Arline Caraballo WEALTH MANAGEMENT MANAGER.LYFT DRIVER Work Phone: [facility] 12-14-2023 19:09-0400 Systolic blood pressure 112 mm[Hg] Arline Caraballo WEALTH MANAGEMENT MANAGER.LYFT DRIVER Work Phone: [facility] 10-14-2023 14:48-0400 Body height 154.9 cm Abeba Chase WEALTH MANAGEMENT MANAGER.EQUIPMENT OPERATOR [employer]ARD Work Phone: [facility] 10-14-2023 14:48-0400 Body mass index (BMI) [Ratio] 40.16 kg/m2 Abeba Chase WEALTH MANAGEMENT MANAGER.EQUIPMENT OPERATOR [employer] YARD Work Phone: [facility] 10-14-2023 14:48-0400 Body weight 96.4 kg Abeba Chase WEALTH MANAGEMENT MANAGER.EQUIPMENT OPERATOR [employer]ARD Work Phone: [facility] 10-14-2023 14:48-0400 Diastolic blood pressure 72 mm[Hg] Abeba Chase WEALTH MANAGEMENT MANAGER.EQUIPMENT OPERATOR [employer]ARD Work Phone: [facility] 10-14-2023 14:48-0400 Heart rate 111 /min Abeba Chase WEALTH MANAGEMENT MANAGER.EQUIPMENT OPERATOR [employer] YARD Work Phone: [facility] 10-14-2023 14:48-0400 Respiratory rate 14 /min Abeba Chase WEALTH MANAGEMENT MANAGER.EQUIPMENT OPERATOR [employer] YARD Work Phone: [facility] 10-14-2023 14:48-0400 SaO2% (BldA) [Mass fraction] 98 % Abeba Chase APRN.EQUIPMENT OPERATOR INTER[employer]AL YARD Work Phone: [facility] 10-14-2023 14:48-0400 Systolic blood pressure 116 mm[Hg] Abeba Chase APRN.EQUIPMENT OPERATOR [employer]AL YARD Work Phone: [facility] 09-29-2023 18:54-0400 Body mass index (BMI) [Ratio] 40.03 kg/m2 Silvestre Diana MD Work Phone: [facility] 09-29-2023 18:54-0400 Body temperature 97.9 [degF] Silvestre Diana MD Work Phone: [facility] 09-29-2023 18:54-0400 Body weight 96.1 kg Silvestre Diana MD Work Phone: [facility] 09-29-2023 18:54-0400 Diastolic blood pressure 90 mm[Hg] Silvestre Diana MD Work Phone: [facility] 09-29-2023 18:54-0400 Heart rate 119 /min Silvestre Diana MD Work Phone: [facility] 09-29-2023 18:54-0400 Respiratory rate 21 /min Silvestre Diana MD Work Phone: [facility] 09-29-2023 18:54-0400 SaO2% (BldA) [Mass fraction] 99 % Silvestre Diana MD Work Phone: [facility] 09-29-2023 18:54-0400 Systolic blood pressure 110 mm[Hg] Silvestre Diana MD Work Phone: [facility] 08-26-2023 09:42-0400 Body mass index (BMI) [Ratio] 40.07 kg/m2 Deborah Tobar APRN.LYFT DRIVER Work Phone: [facility] 08-26-2023 09:42-0400 Body temperature 97.59 [degF] Deborah Tobar APRN.LYFT DRIVER Work Phone: [facility] 08-26-2023 09:42-0400 Body weight 96.2 kg Deborah Praisler-Wood WEALTH MANAGEMENT MANAGER.LYFT DRIVER Work Phone: [facility] 08-26-2023 09:42-0400 Diastolic blood pressure 82 mm[Hg] Deborah Praisler-Wood WEALTH MANAGEMENT MANAGER.LYFT DRIVER Work Phone: [facility] 08-26-2023 09:42-0400 Heart rate 124 /min Deborah Praisler-Wood WEALTH MANAGEMENT MANAGER.LYFT DRIVER Work Phone: [facility] 08-26-2023 09:42-0400 Respiratory rate 18 /min Deborah Praisler-Wood WEALTH MANAGEMENT MANAGER.LYFT DRIVER Work Phone: [facility] 08-26-2023 09:42-0400 SaO2% (BldA) [Mass fraction] 97 % Deborah Praisler-Wood WEALTH MANAGEMENT MANAGER.LYFT DRIVER Work Phone: [facility] [facility] 08-26-2023 09:42-0400 Systolic blood pressure 158 mm[Hg] Deborah Praisler-Wood WEALTH MANAGEMENT MANAGER.LYFT DRIVER Work Phone: [facility] 07-22-2023 19:25-0400 Body mass index (BMI) [Ratio] 39.16 kg/m2 Delia Abrams APRN.LYFT DRIVER Work Phone: [facility] 07-22-2023 19:25-0400 Body temperature 98.1 [degF] Delia Abrams APRN.LYFT DRIVER Work Phone: [facility] 07-22-2023 19:25-0400 Body weight 94 kg Delia Abrams APRN.LYFT DRIVER Work Phone: [facility] 07-22-2023 19:25-0400 Diastolic blood pressure 96 mm[Hg] Delia Abrams APRN.LYFT DRIVER Work Phone: [facility] 07-22-2023 19:25-0400 Heart rate 127 /min Delia Abrams APRN.LYFT DRIVER Work Phone: [facility] 07-22-2023 19:25-0400 Respiratory rate 22 /min Delia Martin WEALTH MANAGEMENT MANAGER.LYFT DRIVER Work Phone: [facility] 07-22-2023 19:25-0400 SaO2% (BldA) [Mass fraction] 98 % Delia Abrams APRN.LYFT DRIVER Work Phone: [facility] 07-22-2023 19:25-0400 Systolic blood pressure 139 mm[Hg] Delia Abrams APRN.LYFT DRIVER Work Phone: [facility] 06-22-2023 15:11-0400 Body temperature 98.1 [degF] Dr. Isma Almanza Work Phone: [facility] 06-22-2023 15:11-0400 Diastolic blood pressure 88 mm[Hg] Dr. Isma Almanza Work Phone: [facility] 06-22-2023 15:11-0400 Heart rate 105 /min Dr. Isma Almanza Work Phone: [facility] 06-22-2023 15:11-0400 Respiratory rate 16 /min Dr. Isma Almanza Work Phone: [facility] 06-22-2023 15:11-0400 SaO2% (BldA) [Mass fraction] 96 % Dr. Isma Almanza Work Phone: [facility] 06-22-2023 15:11-0400 Systolic blood pressure 142 mm[Hg] Dr. Isma Almanza Work Phone: [facility] 06-22-2023 13:28-0400 Body height 152.[address] Isma Almanza Work Phone: [facility] 06-22-2023 13:28-0400 Body mass index (BMI) [Ratio] 42 kg/m2 Dr. Isma Almanza Work Phone: [facility] 06-22-2023 13:28-0400 Body weight 97.[address] Isma Almanza Work Phone: [facility] 06-10-2023 10:40-0400 Body temperature 96.8 [degF] Dr. Isma Almanza Work Phone: [facility] 06-10-2023 10:40-0400 Diastolic blood pressure 79 mm[Hg] Dr. Isma Almanza Work Phone: [facility] 06-10-2023 10:40-0400 Heart rate 97 /min Dr. Isma Almanza Work Phone: [facility] 06-10-2023 10:40-0400 Respiratory rate 16 /min Dr. Isma Almanza Work Phone: [facility] 06-10-2023 10:40-0400 SaO2% (BldA) [Mass fraction] 96 % Dr. Isma Almanza Work Phone: [facility] 06-10-2023 10:40-0400 Systolic blood pressure 117 mm[Hg] Dr. Isma Almanza Work Phone: [phone] [place] [address] 06-10-2023 08:49-0400 Body height 154.[address] Isma Almanza Work Phone: [facility] 06-10-2023 08:49-0400 Body mass index (BMI) [Ratio] 37.5 kg/m2 Dr. Isma Almanza Work Phone: [facility] 06-10-2023 08:49-0400 Body weight 90.[address] Isma Almanza Work Phone: [facility] 05-24-2023 17:54-0400 Body temperature 98.49 [degF] Krislyn Aberegg PA Work Phone: [facility] 05-24-2023 17:54-0400 Body weight 90.8 kg Krislyn Aberegg PA Work Phone: [facility] 05-24-2023 17:54-0400 Diastolic blood pressure 84 mm[Hg] Krislyn Aberegg PA Work Phone: [facility] 05-24-2023 17:54-0400 Heart rate 106 /min Krislyn Aberegg PA Work Phone: [facility] 05-24-2023 17:54-0400 Respiratory rate 16 /min Krislyn Aberegg PA Work Phone: [facility] 05-24-2023 17:54-0400 SaO2% (BldA) [Mass fraction] 100 % Krislyn Aberegg PA Work Phone: [facility] 05-24-2023 17:54-0400 Systolic blood pressure 128 mm[Hg] Krislyn Aberegg PA Work Phone: [facility] 05-23-2023 10:02-0400 Body weight 90.72 kg Amy Darling MD Work Phone: [facility] 05-23-2023 10:02-0400 Diastolic blood pressure 82 mm[Hg] Amy Darling MD Work Phone: [facility] 05-23-2023 10:02-0400 Systolic blood pressure 144 mm[Hg] Amy Darling MD Work Phone: [facility] 05-05-2023 14:03-0500 Body temperature 98.2 [degF] Dr. Isma Almanza Work Phone: [facility] 05-05-2023 14:03-0500 Diastolic blood pressure 71 mm[Hg] Dr. Isma Almanza Work Phone: [facility] 05-05-2023 14:03-0500 Heart rate 86 /min Dr. Isma Almanza Work Phone: [facility] 05-05-2023 14:03-0500 Respiratory rate 16 /min Dr. Isma Almanza Work Phone: [facility] 05-05-2023 14:03-0500 SaO2% (BldA) [Mass fraction] 99 % Dr. Isma Almanza Work Phone: [facility] 05-05-2023 14:03-0500 Systolic blood pressure 121 mm[Hg] Dr. Isma Almanza Work Phone: [facility] 05-05-2023 10:41-0500 Body height 154.[address] Isma Almanza Work Phone: [facility] 05-05-2023 10:41-0500 Body mass index (BMI) [Ratio] 36.6 kg/m2 Dr. Isma Almanza Work Phone: [facility] 05-05-2023 10:41-0500 Body weight 87.[address] Isma Almanza Work Phone: [facility] 02-24-2023 10:11-0500 Diastolic blood pressure 83 mm[Hg] Abeba Chase WEALTH MANAGEMENT MANAGER.EQUIPMENT OPERATOR [employer] Work Phone: [facility] 02-24-2023 10:11-0500 Heart rate 108 /min Abeba Chase WEALTH MANAGEMENT MANAGER.EQUIPMENT OPERATOR [employer] Work Phone: [facility] 02-24-2023 10:11-0500 Systolic blood pressure 126 mm[Hg] Abeba Chase WEALTH MANAGEMENT MANAGER.EQUIPMENT OPERATOR [employer] Work Phone: [facility] 02-24-2023 10:10-0500 Body weight 82.1 kg Abeba Chase WEALTH MANAGEMENT MANAGER.EQUIPMENT OPERATOR [employer] Work Phone: [facility] 02-24-2023 10:10-0500 Respiratory rate 16 /min Abeba Chase WEALTH MANAGEMENT MANAGER.EQUIPMENT OPERATOR [employer] Work Phone: [facility] 02-14-2023 13:36-0500 Body mass index (BMI) [Ratio] 35.5 kg/m2 Dr. Isma Almanza Work Phone: [facility] 02-14-2023 13:36-0500 Body weight 82.[address] Isma Almanza Work Phone: [facility] 02-14-2023 13:36-0500 Diastolic blood pressure 84 mm[Hg] Dr. Isma Almanza Work Phone: [facility] 02-14-2023 13:36-0500 Respiratory rate 16 /min Dr. Isma Almanza Work Phone: [facility] 02-14-2023 13:36-0500 Systolic blood pressure 125 mm[Hg] Dr. Isma Almanza Work Phone: [facility] 01-27-2023 00:41-0500 Diastolic blood pressure 68 mm[Hg] [facility] 01-27-2023 00:41-0500 Heart rate 104 /min [facility] 01-27-2023 00:41-0500 Respiratory rate 16 /min [facility] 01-27-2023 00:41-0500 SaO2% (BldA) [Mass fraction] 99 % [facility] 01-27-2023 00:41-0500 Systolic blood pressure 138 mm[Hg] [facility] 01-26-2023 19:46-0500 Body height 152.4 cm [facility] 01-26-2023 19:46-0500 Body mass index (BMI) [Ratio] 35.6 kg/m2 [facility] 01-26-2023 19:46-0500 Body temperature 97.5 [degF] [facility] 01-26-2023 19:46-0500 Body weight 82.73 kg [facility] 11-29-2022 14:49-0400 Body temperature 98.49 [degF] Antonette Sorin WEALTH MANAGEMENT MANAGER.LYFT DRIVER Work Phone: [facility] 11-29-2022 14:49-0400 Body weight 82.19 kg Antonette Sorin WEALTH MANAGEMENT MANAGER.LYFT DRIVER Work Phone: [facility] 11-29-2022 14:49-0400 Diastolic blood pressure 89 mm[Hg] Antonette Sorin WEALTH MANAGEMENT MANAGER.LYFT DRIVER Work Phone: [facility] 11-29-2022 14:49-0400 Heart rate 124 /min Antonette Sorin WEALTH MANAGEMENT MANAGER.LYFT DRIVER Work Phone: [facility] 11-29-2022 14:49-0400 Respiratory rate 18 /min Antonette Sorin WEALTH MANAGEMENT MANAGER.LYFT DRIVER Work Phone: [facility] 11-29-2022 14:49-0400 SaO2% (BldA) [Mass fraction] 98 % Antonette Rowell WEALTH MANAGEMENT MANAGER.LYFT DRIVER Work Phone: [facility] 11-29-2022 14:49-0400 Systolic blood pressure 136 mm[Hg] Antonette Rowell WEALTH MANAGEMENT MANAGER.LYFT DRIVER Work Phone: [facility] 11-12-2022 10:58-0400 Body weight 79.38 kg Krupa Older WEALTH MANAGEMENT MANAGER.LYFT DRIVER Work Phone: [facility] 11-12-2022 10:58-0400 Diastolic blood pressure 78 mm[Hg] Krupa Older WEALTH MANAGEMENT MANAGER.LYFT DRIVER Work Phone: [facility] 11-12-2022 10:58-0400 Heart rate 108 /min Krupa Older WEALTH MANAGEMENT MANAGER.LYFT DRIVER Work Phone: [facility] 11-12-2022 10:58-0400 Respiratory rate 16 /min Krupa Older WEALTH MANAGEMENT MANAGER.LYFT DRIVER Work Phone: [facility] 11-12-2022 10:58-0400 SaO2% (BldA) [Mass fraction] 98 % Krupa Older WEALTH MANAGEMENT MANAGER.LYFT DRIVER Work Phone: [facility] 11-12-2022 10:58-0400 Systolic blood pressure 122 mm[Hg] WEALTH MANAGEMENT MANAGER.LYFT DRIVER Work Phone: [facility] 10-09-2022 03:28-0400 Diastolic blood pressure 78 mm[Hg] [facility] 10-09-2022 03:28-0400 Heart rate 98 /min [facility] 10-09-2022 03:28-0400 Respiratory rate 18 /min [facility] 10-09-2022 03:28-0400 SaO2% (BldA) [Mass fraction] 98 % [facility] 10-09-2022 03:28-0400 Systolic blood pressure 116 mm[Hg] [facility] 10-09-2022 02:28-0400 Body mass index (BMI) [Ratio] 35.4 kg/m2 [facility] 10-09-2022 02:28-0400 Body temperature 97.7 [degF] [facility] 10-09-2022 02:28-0400 Body weight 82.3 kg [facility] 08-10-2022 12:03-0400 Body height 154.9 cm Isma Almanza Other Phone: [facility] 08-10-2022 12:03-0400 Body temperature 98.6 [degF] Isma Worrellta Other Phone: [facility] 08-10-2022 12:03-0400 Diastolic blood pressure 109 mm[Hg] Isma Almanza Other Phone: [facility] 08-10-2022 12:03-0400 Heart rate 109 /min Isma Almanza Other Phone: [facility] 08-10-2022 12:03-0400 Respiratory rate 16 /min Isma Almanza Other Phone: [facility] 08-10-2022 12:03-0400 SaO2% (BldA) [Mass fraction] 99 % Isma Almanza Other Phone: [facility] 08-10-2022 12:03-0400 Systolic blood pressure 155 mm[Hg] Isma Almanza Other Phone: [facility] 07-12-2022 11:46-0400 Body height 154.9 cm Isma Almanza MD Work Phone: [facility] 07-12-2022 11:46-0400 Body temperature 98.49 [degF] Isma Almanza MD Work Phone: [facility] 07-12-2022 11:46-0400 Body weight 77.11 kg Isma Almanza MD Work Phone: [facility] 07-12-2022 11:46-0400 Diastolic blood pressure 72 mm[Hg] Isma Almanza MD Work Phone: [facility] 07-12-2022 11:46-0400 Heart rate 102 /min Isma Almanza MD Work Phone: [facility] 07-12-2022 11:46-0400 Respiratory rate 12 /min Isma Almanza MD Work Phone: [facility] 07-12-2022 11:46-0400 SaO2% (BldA) [Mass fraction] 97 % Isma Almanza MD Work Phone: [facility] 07-12-2022 11:46-0400 Systolic blood pressure 120 mm[Hg] Isma Almanza MD Work Phone: [facility] 06-23-2022 18:48-0400 Body height 154.9 cm Cintia Hanley WEALTH MANAGEMENT MANAGER.LYFT DRIVER Work Phone: [facility] 06-23-2022 18:48-0400 Body weight 79.83 kg Cintia Hanley WEALTH MANAGEMENT MANAGER.LYFT DRIVER Work Phone: [facility] 06-23-2022 18:48-0400 Diastolic blood pressure 88 mm[Hg] Cintia Hanley WEALTH MANAGEMENT MANAGER.LYFT DRIVER Work Phone: [facility] 06-23-2022 18:48-0400 Heart rate 95 /min Cintia Hanley WEALTH MANAGEMENT MANAGER.LYFT DRIVER Work Phone: [facility] 06-23-2022 18:48-0400 SaO2% (BldA) [Mass fraction] 99 % Cintia Hanley WEALTH MANAGEMENT MANAGER.LYFT DRIVER Work Phone: [facility] 06-23-2022 18:48-0400 Systolic blood pressure 138 mm[Hg] Cintia Hanley WEALTH MANAGEMENT MANAGER.LYFT DRIVER Work Phone: [facility] 06-09-2022 19:40-0400 Body temperature 97.59 [degF] Deborah Mae-Adair WEALTH MANAGEMENT MANAGER.LYFT DRIVER Work Phone: [facility] 06-09-2022 19:40-0400 Body weight 81.1 kg Deborah Tobar WEALTH MANAGEMENT MANAGER.LYFT DRIVER Work Phone: [facility] 06-09-2022 19:40-0400 Diastolic blood pressure 90 mm[Hg] Deborahlottie Schultzler-Wood WEALTH MANAGEMENT MANAGER.LYFT DRIVER Work Phone: [facility] 06-09-2022 19:40-0400 Heart rate 122 /min Deborah Praisler-Wood WEALTH MANAGEMENT MANAGER.LYFT DRIVER Work Phone: [facility] 06-09-2022 19:40-0400 Respiratory rate 21 /min Deborah Praisler-Wood WEALTH MANAGEMENT MANAGER.LYFT DRIVER Work Phone: [facility] 06-09-2022 19:40-0400 SaO2% (BldA) [Mass fraction] 99 % Deborah Praisler-Wood WEALTH MANAGEMENT MANAGER.LYFT DRIVER Work Phone: [facility] 06-09-2022 19:40-0400 Systolic blood pressure 148 mm[Hg] Deborah Praisler-Wood WEALTH MANAGEMENT MANAGER.LYFT DRIVER Work Phone: [facility] 04-12-2022 11:42-0500 Body height 154.9 cm Isma Almanza MD Work Phone: [facility] 04-12-2022 11:42-0500 Body temperature 98.2 [degF] Isma Almanza MD Work Phone: [facility] 04-12-2022 11:42-0500 Body weight 83.92 kg Isma Almanza MD Work Phone: [facility] 04-12-2022 11:42-0500 Diastolic blood pressure 76 mm[Hg] Isma Almanza MD Work Phone: [facility] 04-12-2022 11:42-0500 Heart rate 92 /min Isma Almanza MD Work Phone: [facility] 04-12-2022 11:42-0500 Respiratory rate 12 /min Isma Almanza MD Work Phone: [facility] 04-12-2022 11:42-0500 SaO2% (BldA) [Mass fraction] 100 % Isma Almanza MD Work Phone: [facility] 04-12-2022 11:42-0500 Systolic blood pressure 130 mm[Hg] Isma Almanza MD Work Phone: [facility] 03-30-2022 08:46-0500 Body weight 84.82 kg Amy Darling MD Work Phone: [facility] 03-30-2022 08:46-0500 Diastolic blood pressure 78 mm[Hg] Amy Darling MD Work Phone: [facility] 03-30-2022 08:46-0500 Systolic blood pressure 118 mm[Hg] Amy Darling MD Work Phone: [facility] 03-18-2022 11:39-0500 Body weight 84.82 kg Amy Darling MD Work Phone: [facility] 03-18-2022 11:39-0500 Diastolic blood pressure 80 mm[Hg] Amy Darling MD Work Phone: [facility] 03-18-2022 11:39-0500 Systolic blood pressure 120 mm[Hg] Amy Darling MD Work Phone: [facility] 03-11-2022 11:42-0500 Body weight 81.65 kg Krupa Older WEALTH MANAGEMENT MANAGER.LYFT DRIVER Work Phone: [facility] 03-11-2022 11:42-0500 Diastolic blood pressure 80 mm[Hg] Krupa Older WEALTH MANAGEMENT MANAGER.LYFT DRIVER Work Phone: [facility] 03-11-2022 11:42-0500 Heart rate 92 /min Krupa Older WEALTH MANAGEMENT MANAGER.LYFT DRIVER Work Phone: [facility] 03-11-2022 11:42-0500 Respiratory rate 16 /min Krupa Older WEALTH MANAGEMENT MANAGER.LYFT DRIVER Work Phone: [facility] 03-11-2022 11:42-0500 Systolic blood pressure 122 mm[Hg] Krupa Older WEALTH MANAGEMENT MANAGER.LYFT DRIVER Work Phone: [facility] 02-09-2022 10:41-0500 Body height 154.9 cm Isma Almanza MD Work Phone: [facility] 02-09-2022 10:41-0500 Body temperature 98.2 [degF] Isma Almanza MD Work Phone: [facility] 02-09-2022 10:41-0500 Body weight 84.82 kg Isma Almanza MD Work Phone: [facility] 02-09-2022 10:41-0500 Diastolic blood pressure 62 mm[Hg] Isma Almanza MD Work Phone: [facility] 02-09-2022 10:41-0500 Heart rate 101 /min Isma Almanza MD Work Phone: [facility] 02-09-2022 10:41-0500 Respiratory rate 12 /min Isma Almanza MD Work Phone: [facility] 02-09-2022 10:41-0500 SaO2% (BldA) [Mass fraction] 99 % Isma Almanza MD Work Phone: [facility] 02-09-2022 10:41-0500 Systolic blood pressure 124 mm[Hg] Isma Almanza MD Work Phone: [facility] 12-24-2021 18:59-0400 Body temperature 98.49 [degF] Arline Caraballo WEALTH MANAGEMENT MANAGER.LYFT DRIVER Work Phone: [facility] 12-24-2021 18:59-0400 Body weight 84.91 kg Arline Caraballo WEALTH MANAGEMENT MANAGER.LYFT DRIVER Work Phone: [facility] 12-24-2021 18:59-0400 Diastolic blood pressure 78 mm[Hg] Arline Caraballo WEALTH MANAGEMENT MANAGER.LYFT DRIVER Work Phone: [facility] 12-24-2021 18:59-0400 Heart rate 104 /min Arline Caraballo WEALTH MANAGEMENT MANAGER.LYFT DRIVER Work Phone: [facility] 12-24-2021 18:59-0400 Respiratory rate 18 /min Arline Caraballo WEALTH MANAGEMENT MANAGER.LYFT DRIVER Work Phone: [facility] 12-24-2021 18:59-0400 SaO2% (BldA) [Mass fraction] 98 % Arline Caraballo WEALTH MANAGEMENT MANAGER.LYFT DRIVER Work Phone: [facility] 12-24-2021 18:59-0400 Systolic blood pressure 122 mm[Hg] Arline Caraballo WEALTH MANAGEMENT MANAGER.LYFT DRIVER Work Phone: [facility] 09-07-2021 14:19-0400 Body weight 82.1 kg Abeba Chase WEALTH MANAGEMENT MANAGER.EQUIPMENT OPERATOR [employer] Work Phone: [facility] 09-07-2021 14:19-0400 Diastolic blood pressure 74 mm[Hg] Abeba Chase WEALTH MANAGEMENT MANAGER.EQUIPMENT OPERATOR [employer] Work Phone: [facility] 09-07-2021 14:19-0400 Heart rate 92 /min Abeba Chase WEALTH MANAGEMENT MANAGER.EQUIPMENT OPERATOR [employer] Work Phone: [facility] 09-07-2021 14:19-0400 Respiratory rate 16 /min Abeba Chase WEALTH MANAGEMENT MANAGER.EQUIPMENT OPERATOR [employer] Work Phone: [facility] 09-07-2021 14:19-0400 Systolic blood pressure 120 mm[Hg] Abeba Chase WEALTH MANAGEMENT MANAGER.EQUIPMENT OPERATOR [employer] Work Phone: [facility] 08-21-2021 09:48-0400 Body height 154.9 cm Respiratory Wstr Work Phone: [facility] 08-21-2021 09:48-0400 Body weight 82.64 kg Respiratory Wstr Work Phone: [facility] 06-09-2021 13:55-0400 Body temperature 98.1 [degF] Abeba Chase WEALTH MANAGEMENT MANAGER.EQUIPMENT OPERATOR [employer] Work Phone: [facility] 06-09-2021 13:55-0400 Body weight 78.93 kg Abeba Chase WEALTH MANAGEMENT MANAGER.EQUIPMENT OPERATOR [employer] Work Phone: [facility] 06-09-2021 13:55-0400 Diastolic blood pressure 82 mm[Hg] Abeba Chase WEALTH MANAGEMENT MANAGER.EQUIPMENT OPERATOR [employer] Work Phone: [facility] 06-09-2021 13:55-0400 Heart rate 97 /min Abeba Chase WEALTH MANAGEMENT MANAGER.EQUIPMENT OPERATOR [employer] Work Phone: [facility] 06-09-2021 13:55-0400 SaO2% (BldA) [Mass fraction] 100 % Abeba Chase WEALTH MANAGEMENT MANAGER.EQUIPMENT OPERATOR [employer] YARD Work Phone: [facility] 06-09-2021 13:55-0400 Systolic blood pressure 124 mm[Hg] Abeba Chase WEALTH MANAGEMENT MANAGER.EQUIPMENT OPERATOR [employer] Work Phone: [facility] 03-23-2021 01:10-0500 Body height 152.4 cm No Pcp Required [facility] 03-23-2021 01:10-0500 Body temperature 98.06 [degF] No Pcp Required [facility] 03-23-2021 01:10-0500 Body weight 76 kg No Pcp Required [facility] 03-23-2021 01:10-0500 Diastolic blood pressure 118 mm[Hg] No Pcp Required [facility] 03-23-2021 01:10-0500 Heart rate 87 /min No Pcp Required [facility] 03-23-2021 01:10-0500 Respiratory rate 18 /min No Pcp Required [facility] 03-23-2021 01:10-0500 SaO2% (BldA) [Mass fraction] 100 % No Pcp Required [facility] 03-23-2021 01:10-0500 Systolic blood pressure 160 mm[Hg] No Pcp Required [facility] Encounters Encounter Date Encounter Type Care Provider Facility Start: 08-20-2024 End: 08-20-2024 Patient encounter procedure Tressa Steward WEALTH MANAGEMENT MANAGER.LYFT DRIVER Work Phone: [facility] Comment on above: Acute conjunctivitis of both eyes, unspecified acute conjunctivitis type (Primary Dx) Start: 08-16-2024 ambulatory [facility] Start: 07-22-2024 End: 07-22-2024 Emergency department patient visit MADDY CHENTELazara SAINI [facility] Start: 07-09-2024 End: 07-09-2024 Orders Only Sebas Nuñez MD Work Phone: [facility] [place] Comment on above: Pain (Primary Dx) Start: 06-09-2024 End: 06-09-2024 [facility] Facility:[facility] Start: 06-09-2024 End: 06-09-2024 Office outpatient visit 25 minutes Lucia Darnell PA-C Work Phone: [facility] Comment on above: Mild intermittent as thma with acute exacerbation (Primary Dx) Start: 05-24-2024 End: 05-24-2024 [facility] Facility:[facility] Start: 03-27-2024 End: 03-27-2024 [facility] Facility:[facility] Start: 03-27-2024 End: 03-27-2024 Patient encounter procedure Antonette Rowell APRN.CNP Work Phone: [facility] Comment on above: Sore throat (Primary Dx) Start: 03-26-2024 End: 03-26-2024 Subsequent hospital visit by physician Cathie [facility] Work Phone: Radiology Comment on above: Acute pain of left s houlder [M25.512] Start: 03-26-2024 End: 03-26-2024 [facility] Facility:[facility] Start: 03-26-2024 End: 03-26-2024 Patient encounter procedure Ruben BUCK Work Phone: [facility] Comment on above: Acute pain of left s houlder (Primary Dx) Start: 03-23-2024 End: 03-23-2024 ambulatory [facility] Rosas Facility:[facility] Start: 02-21-2024 End: 02-21-2024 ambulatory [facility] Start: 02-07-2024 ambulatory [facility] Start: 01-23-2024 [facility]counter for other [facility] Start: 01-17-2024 ambulatory [facility] Facility:[facility] Start: 01-17-2024 End: 01-17-2024 Subsequent hospital visit by physician [facility] Comment on above: Left arm swelling [M 79.89] Start: 01-17-2024 End: 01-17-2024 Subsequent hospital visit by physician Cathie [facility] Work Phone: Radiology Comment on above: Left arm swelling [M 79.89] Start: 01-17-2024 End: 01-17-2024 ambulatory [facility] Facility:[facility] Start: 01-17-2024 End: 01-17-2024 Office outpatient visit 15 minutes Abeba Chase WEALTH MANAGEMENT MANAGER.EQUIPMENT OPERATOR [employer] Work Phone: [facility] [place] Comment on above: Left arm swelling (P rimary Dx); SOB (shortness of breath); History of carpal tunnel surgery of left wrist; Cough; Shortness of breath; Soft tissue swelling of chest wall Start: 01-15-2024 End: 01-15-2024 Emergency department patient visit [facility] Facility:[facility] Start: 01-14-2024 End: 01-15-2024 [facility] Facility:[facility] Start: 01-14-2024 End: 01-14-2024 Patient encounter procedure Talon Espinoza PA-C Work Phone: [facility] Comment on above: Left arm swelling (P rimary Dx) Start: 01-10-2024 End: 01-10-2024 ambulatory [facility] Start: 12-30-2023 End: 12-30-2023 ambulatory [facility] Start: 12-28-2023 ambulatory [facility] Start: 12-28-2023 End: 12-28-2023 [facility] Facility:[facility] Start: 12-22-2023 End: 12-22-2023 ambulatory [facility] Start: 12-16-2023 End: 12-19-2023 Refill Abebaria Murphys WEALTH MANAGEMENT MANAGER.EQUIPMENT OPERATOR [employer] Work Phone: [facility] [place] Comment on above: Refill Request Start: 12-14-2023 End: 12-14-2023 ambulatory [facility] Facility:[facility] Start: 12-14-2023 End: 12-14-2023 Patient encounter procedure Arline Caraballo WEALTH MANAGEMENT MANAGER.LYFT DRIVER Work Phone: [facility] Comment on above: Dysuria (Primary Dx) Start: 12-05-2023 End: 12-05-2023 Patient encounter procedure Martina Bautista Work Phone: Podiatry Comment on above: Plantar fasciitis (P rimary Dx); Pain of left heel Start: 12-05-2023 End: 12-20-2023 ambulatory Martina Bautista Work Phone: Podiatry Comment on above: Prescription Start: 10-14-2023 End: 10-14-2023 [facility] Facility:[facility] Start: 10-14-2023 End: 10-14-2023 Office outpatient visit 15 minutes Abeba Chase APRN.CNS Work Phone: [facility] [place] Comment on above: Left foot pain (Prim christina Dx) Start: 09-29-2023 End: 09-29-2023 Subsequent hospital visit by physician Xr [facility] Work Phone: Radiology Comment on above: Pain of left heel [M 79.672] Start: 09-29-2023 End: 09-29-2023 [facility] Facility:[facility] Start: 09-29-2023 End: 09-29-2023 Patient encounter procedure Silvestre Diana MD Work Phone: [facility] Comment on above: Pain of left heel (P rimary Dx) Start: 09-22-2023 End: 09-22-2023 ambulatory [facility] Start: 09-09-2023 End: 09-09-2023 Emergency department patient visit Ed Physician Provider Facility:[facility] Start: 08-26-2023 End: 08-26-2023 [facility] Facility:[facility] Start: 08-26-2023 End: 08-26-2023 Patient encounter procedure Deborah Tobar APRN.LYFT DRIVER Work Phone: [facility] Comment on above: Pain, dental (Primar y Dx); Feared condition not demonstrated Start: 07-22-2023 End: 07-22-2023 [facility] Facility:[facility] Start: 07-22-2023 End: 07-22-2023 Patient encounter procedure Delia Abrams APRN.LYFT DRIVER Work Phone: [facility] Comment on above: Muscle pain (Primary Dx); Pain Start: 06-22-2023 End: 06-22-2023 Emergency department patient visit Dr. Isma Almanza Work Phone: [facility] Work Phone: Start: 06-10-2023 Non-patient / Non-visit Dr. Emil Almanza Work Phone: [facility] Start: 06-10-2023 End: 06-10-2023 Admission to same day surgery center Dr. Isma Almanza Work Phone: [facility] Work Phone: Start: 06-10-2023 End: 06-10-[address] Isma Almanza Work Phone: [facility] Work Phone: Start: 06-02-2023 End: 06-02-2023 Subsequent hospital visit by physician [facility] Work Phone: Radiology Comment on above: Ovarian cyst, right [N83.201] Start: 05-31-2023 ambulatory Krupa Kings AvalosLYFT DRIVER Work Phone: [facility] Comment on above: Increase Start: 05-24-2023 End: 05-24-2023 Patient encounter procedure Ruben BUCK Work Phone: [facility] Comment on above: Nausea (Primary Dx) Start: 05-23-2023 End: 05-23-2023 Patient encounter procedure Amy Darling MD Work Phone: OB/Gynecology Comment on above: Ovarian cyst, right (Primary Dx); Pelvic pain in female; Abnormal uterine bleeding (AUB); Nexplanon in place Start: 05-05-2023 End: 05-05-2023 Emergency department patient visit Dr. Isma Almanza Work Phone: [facility] Work Phone: Start: 03-21-2023 End: 03-21-[address] Isma Almanza Work Phone: [facility] Work Phone: Start: 02-24-2023 End: 02-24-2023 Office outpatient visit 15 minutes Abeba Chase APRN.CNS Work Phone: [facility] [place] Comment on above: Obesity (BMI 30-39.9 ) (Primary Dx); Class 2 severe obesity with serious comorbidity and body mass index (BMI) of 35.0 to 35.9 in adult, unspecified obesity type Start: 02-14-2023 End: 02-14-[address] Isma Almanza Work Phone: [facility] Work Phone: Start: 01-28-2023 Refill Isma Morgan Work Phone: [facility] Comment on above: Refill Request Start: 01-26-2023 End: 01-27-2023 [facility] Start: 12-29-2022 End: 12-29-2022 ambulatory [facility] Start: 12-24-2022 Refill Kimberly Flowers MD Work Phone: Pulmonary Medicine Comment on above: Refill Request Start: 12-21-2022 Refill Kimberly Flowers MD Work Phone: Pulmonary Medicine Comment on above: Refill Request Start: 11-29-2022 End: 11-29-2022 Subsequent hospital visit by physician Xr [facility] Work Phone: Radiology Comment on above: Rhonchi [R09.89] Start: 11-29-2022 End: 11-29-2022 Patient encounter procedure Antonette Rowell APRN.LYFT DRIVER Work Phone: [facility] Comment on above: Mild intermittent as thmatic bronchitis without complication (Primary Dx); Rhonchi Start: 11-12-2022 End: 11-12-2022 Patient encounter procedure Krupa Ku APRN.LYFT DRIVER Work Phone: [facility] [place] Comment on above: Anxiety and depressi on (Primary Dx); Panic attacks Start: 11-01-2022 Refill Amy Darling MD Work Phone: OB/Gynecology Comment on above: Refill Request Start: 10-09-2022 End: 10-09-2022 [facility] Start: 08-10-2022 End: 08-10-2022 Emergency department patient visit [facility] Start: 07-15-2022 End: 07-15-2022 Patient encounter procedure Antonette Rowell APRN.LYFT DRIVER Work Phone: [facility] Comment on above: Panic attack (Primar y Dx) Start: 07-12-2022 End: 07-12-2022 Patient encounter procedure Isma Almanza MD Work Phone: [facility] [place] Comment on above: Anxiety and depressi on (Primary Dx); Need for HPV vaccination Start: 06-28-2022 Refill Isma Morgan Work Phone: [facility] [place] Comment on above: Refill Request Start: 06-27-2022 Refill Kimberly Flowers MD Work Phone: Pulmonary Medicine Comment on above: Refill Request Start: 06-23-2022 End: 06-23-2022 Patient encounter procedure Cintia Hanley APRN.LYFT DRIVER Work Phone: [facility] [place] Comment on above: Wellness examination (Primary Dx); Anxiety and depression; Dysphagia, unspecified type; Elevated BP without diagnosis of hypertension Start: 06-23-2022 End: 06-23-2022 Patient encounter status Cintia Hanley APRN.LYFT DRIVER Work Phone: [facility] Start: 06-09-2022 End: 06-09-2022 Patient encounter procedure Deborah Tobar APRN.LYFT DRIVER Work Phone: [facility] Comment on above: Sore throat (Primary Dx); Viral URI with cough Start: 05-27-2022 End: 05-27-2022 ambulatory Isma Almanza MD Work Phone: [facility] [place] Comment on above: Panic attacks (Prima ry Dx) Start: 05-27-2022 End: 05-27-2022 Telemedicine consultation with patient Isma Almanza MD Work Phone: [facility] Start: 04-12-2022 End: 04-12-2022 Patient encounter procedure Isma Almanza MD Work Phone: [facility] [place] Comment on above: Obesity (BMI 30-39.9 ) Start: 03-30-2022 End: 03-30-2022 Patient encounter procedure Amy Darling MD Work Phone: OB/Gynecology Comment on above: Cervical high risk H PV (human papillomavirus) test positive (Primary Dx); Need for prophylactic vaccination/inoculation against viral disease Start: 03-24-2022 [facility] Start: 03-23-2022 Telephone encounter Amy Darling MD Work Phone: OB/Gynecology Comment on above: Results Start: 03-18-2022 End: 03-18-2022 Patient encounter procedure Amy Darling MD Work Phone: OB/Gynecology Comment on above: Pelvic pain in femal e (Primary Dx); Deep dyspareunia; Abnormal uterine bleeding (AUB); Encounter for screening for human papillomavirus (HPV); Screening for cervical cancer Start: 03-11-2022 End: 03-11-2022 Patient encounter procedure Krupa Ku APRN.LYFT DRIVER Work Phone: [facility] [place] Comment on above: Obesity (BMI 30-39.9 ) (Primary Dx); Weight loss counseling, encounter for; Chronic right-sided low back pain with right-sided sciatica Start: 02-09-2022 End: 02-09-2022 Patient encounter procedure Isma Almanza MD Work Phone: [facility] [place] Comment on above: Class 2 severe obesi ty with serious comorbidity and body mass index (BMI) of 35.0 to 35.9 in adult, unspecified obesity type (HCC) (Primary Dx); Anxiety and depression Start: 01-18-2022 End: 01-18-2022 Subsequent hospital visit by physician Xr [facility] Work Phone: Radiology Comment on above: Chronic right-sided low back pain with right-sided sciatica [M54.41, G89.29] Start: 12-24-2021 End: 12-24-2021 Patient encounter procedure Arline Caraballo APRN.LYFT DRIVER Work Phone: [facility] Comment on above: Sciatica, right side (Primary Dx) Start: 11-17-2021 Chart Update No PCP None [facility] Work Phone: Start: 11-10-2021 Refill Isma Morgan Work Phone: [facility] [place] Comment on above: Refill Request Start: 09-18-2021 Non-patient / Non-visit Dr. Emil Almanza Work Phone: [facility] Start: 09-18-2021 End: 09-18-[address] Isma Almanza Work Phone: [facility] Services/Neurology Start: 09-07-2021 Chart abstracting Baldo [place] Work Phone: Psychology Comment on above: Consult (Initial [facility] Pt Outreach) Start: 09-07-2021 End: 09-07-2021 Patient encounter procedure Abeba Chase APRN.EQUIPMENT OPERATOR [employer]MODAL YARD Work Phone: [facility] [place] Comment on above: Anxiety and depressi on (Primary Dx); Encounter for immunization Start: 08-30-2021 Refill Isma Morgan Work Phone: [facility] [place] Comment on above: Refill Request Start: 08-21-2021 End: 06-10-2022 ambulatory Respiratory Therapist [facility] Work Phone: Pulmonary Medicine Comment on above: Spirometry Start: 08-21-2021 End: 08-21-2021 Patient encounter procedure Respiratory Therapist [facility] Work Phone: [facility] Start: 2021 Refill Kimberly Flowers MD Work Phone: Pulmonary Medicine Comment on above: Refill Request Start: 07-20-2021 End: 07-20-[address] Isma Almanza Work Phone: [facility] Start: 07-13-2021 End: 07-13-2021 Subsequent hospital visit by physician Xr [facility] Work Phone: Radiology Comment on above: Pain of toe of left foot [M79.675] Start: 06-30-2021 Refill Amy Darling MD Work Phone: OB/Gynecology Comment on above: Refill Request Start: 06-09-2021 End: 06-09-2021 Subsequent hospital visit by physician Xr [facility] Work Phone: Radiology Comment on above: Smoker [F17.200] Start: 06-09-2021 End: 06-09-2021 Patient encounter procedure Abeba Chase APRN.EQUIPMENT OPERATOR [employer] YARD Work Phone: [facility] [place] Comment on above: Cough (Primary Dx); Shortness of breath Start: 03-23-2021 End: 03-23-2021 Emergency department patient visit [facility] Start: 11-16-2018 End: 08-09-2019 Patient requested procedure Delia Abrams APRN.LYFT DRIVER Work Phone: [facility] Start: 09-07-2017 End: 09-08-2017 Emergency department patient visit Mikael Esme Benítez Facility:[facility] Procedures Date Procedure Procedure Detail Performing Clinician Start: 03-27-2024 STREP A MOLECULAR (POC) Delia Abrams APRN.LYFT DRIVER Work Phone: Start: 03-26-2024 Radex shoulder complete minimum 2 views Ruben BUCK Work Phone: Start: 01-17-2024 Dup-scan xtr veins unilateral/limited study Abeba Chase WEALTH MANAGEMENT MANAGER.EQUIPMENT OPERATOR [employer] Work Phone: Start: 01-17-2024 Radiologic exam chest 2 views Abeba nichols WEALTH MANAGEMENT MANAGER.EQUIPMENT OPERATOR [employer] Work Phone: Start: 12-14-2023 Urnls dip stick/tablet rgnt auto w/o microscopy Arline Caraballo WEALTH MANAGEMENT MANAGER.LYFT DRIVER Work Phone: Start: 09-29-2023 Radex calcaneus minimum 2 views Silvestre Diana MD Work Phone: Start: 06-10-[address] Isma kinsey Work Phone: Start: 05-05-2023 CT of abdomen and pelvis without contrast Dr. Isma Almanza Work Phone: Start: 05-05-2023 US scan of gallbladder Dr. Isma Almanza Work Phone: Start: 01-26-2023 US scan of gallbladder Start: 12-29-2022 Bacteria identified in Urine by Culture ISMA ALMANZA Start: 12-29-2022 POCT UA AUTOMATED MANUALLY RESULTED KIMBERLY ALMANZA Start: 11-29-2022 Radiologic exam chest 2 views Antonette brantley WEALTH MANAGEMENT MANAGER.LYFT DRIVER Work Phone: Start: 06-09-2022 STREP A MOLECULAR (POC) Deborah hayes WEALTH MANAGEMENT MANAGER.LYFT DRIVER Work Phone: Start: 03-30-2022 Urine test visual color cmprsn meths Amy Darling MD Work Phone: Start: 03-18-2022 BACTERIAL VAGINOSIS AMPLIFICATION Amy Darling MD Work Phone: Start: 03-18-2022 Iadna chlamydia trachomatis amplified probe tq Amy Darling MD Work Phone: Start: 01-18-2022 Radex spine lumbosacral 2/3 views Isma Almanza MD Work Phone: Start: 09-01-2021 Adult depression screening assessment Isma Almanza MD Work Phone: Start: 08-21-2021 Nitric oxide gas determination Kimberly Flowers MD Work Phone: Start: 08-21-2021 Brncdilat rspse spmtry pre&post-brncdilat admn Abeba Chase WEALTH MANAGEMENT MANAGER.EQUIPMENT OPERATOR [employer]ARD Work Phone: Start: 07-13-2021 Radex foot complete minimum 3 views Aniyah Abrams WEALTH MANAGEMENT MANAGER.LYFT DRIVER Work Phone: Start: 06-09-2021 Radiologic exam chest 2 views Abeba nichols WEALTH MANAGEMENT MANAGER.EQUIPMENT OPERATOR [employer]ARD Work Phone: Start: 06-09-2021 Adult depression screening assessment Abeba Chase WEALTH MANAGEMENT MANAGER.EQUIPMENT OPERATOR [employer]AL YARD Work Phone: Start: 03-23-2021 End: 03-23-2021 EKG impression Wan [facility] Start: 03-12-2013 End: 08-09-2019 H/O: section Previous section Delia Abrams WEALTH MANAGEMENT MANAGER.LYFT DRIVER Work Phone: section MADDY LIRA DO History of decompres jeaneth of median nerve History of carpal tunnel surgery of left wrist Abeba Chase WEALTH MANAGEMENT MANAGER.EQUIPMENT OPERATOR [employer]AL YARD Work Phone: Plan of Treatment Date Care Activity Detail Author Start: 03-30-[address] [facility] Start: 03-18-[address]27 [address] [facility] Start: 03-18-2027 PAP TEST[address] PAP TESTING [facility] Start: 03-18-2027 Screening for malign ant neoplasm of cervix [facility] Start: 11-12-2024 Influenza vaccination Influenz a Vaccine (Season Ended) [facility] Start: 08-27-2024 End: 08-27-2024 Patient encounter procedure 08/27/2024 3:30 PM EDT Office Visit Orthopaedics [address] [place] [address] Arely Gaston PA-C [address] [place] [address] Trigger finger thumb left Orthopaedics Comment on above: Trigger finger thumb left Start: 08-20-2024 End: 08-20-2024 Patient encounter procedure Radiology Comment on above: LT HAND TRIGGER FINGER THUMB LT HAND Start: 01-10-2024 End: 01-10-2024 Patient encounter procedure 01/10/2024 9:45 AM EDT Office Visit Podiatry [address] [place] [address] Martina Bautista [address] [place] [address] 4-6 week follow up Podiatry Comment on above: 4-6 week follow up Start: 12-05-2023 End: 12-05-2023 Patient encounter procedure 12/05/2023 1:30 PM EDT Office Visit Podiatry [address] [place] [address] Martina Bautista [address] [place] [address] pain in left heal Podiatry Comment on above: pain in left heal Start: 11-17-20[address] [facility] Start: 11-13-2023 Annual PCP Team Bunch Maker isac Disease Visit Annual PCP Team Chronic Disease Visit [facility] Start: 11-13-2023 Covid-19 Vaccine ( season) Covid-19 Vaccine ( season) [facility] Start: 11-13-2023 Covid-19 Vaccine ( season) Covid-19 Vaccine ( season) [facility] Start: 11-13-2023 Influenza vaccination [facility] Start: 10-27-2023 End: 10-27-2023 Patient encounter procedure 10/27/2023 8:30 AM EDT Office Visit Podiatry [address] [place] [address] Martina Bautista [address] [place] [address] Pain of left heel [M79.672] Podiatry Comment on above: Pain of left heel [M 79.672] Start: 06-24-2023 COVID-19 VACCINE (3 - Booster for Moderna series) COVID-19 VACCINE (3 - Booster for Moderna series) [facility] Comment on above: Postponed from 08/06 (Declined at this time) Start: 06-24-2023 COVID-19 VACCINE (3 - Moderna series) COVID-19 VACCINE (3 - Moderna series) [facility] Comment on above: Postponed from 08/06 (Declined at this time) Start: 06-10-2023 Egd transoral biopsy single/multiple EGD BIOPSY SINGLE/MULTIPLE [facility] Start: 06-10-2023 Patient discharge [facility] Start: 05-23-2023 End: 05-22-2024 US Pelvis PELVIC US [facility] Anc Imaging Routine Ovarian cyst, right Expected: 05/23/2023, Expires: 05/22/2024 [facility] Work Phone: Comment on above: Expected: 05/23/2023 , Expires: 05/22/2024 Start: 05-05-2023 [facility] Start: 03-18-2023 Screening for malign ant neoplasm of cervix Cervical Cancer Screening [facility] Start: 01-26-2023 [facility] Start: 11-12-2022 Covid-19 Vaccine ( season) Covid-19 Vaccine ( season) [facility] Start: 11-12-2022 HPV VACCINE (3 - 3-d ose SCDM series) HPV VACCINE (3 - 3-dose SCDM series) [facility] Start: 11-12-2022 Influenza vaccination [facility] Start: 10-04-2022 HPV Vaccine (3 - 3-d ose SCDM series) HPV Vaccine (3 - 3-dose SCDM series) [facility] Start: 07-16-2023 9vhpv vacc 2/3 dose sched im use HUMAN PAPILLOMAVIRUS 9-VALENT HPV IM Immunization/Injection Routine Expected: 09/26/2022 (Approximate) [facility] Work Phone: Comment on above: Expected: 09/26/2022 (Approximate) Start: 09-10-2022 Influenza vaccination INFLUENZA (#1) [facility] Comment on above: Postponed from 11/12 (Declined at this time) Start: 09-01-2022 Adult depression screening assessment DEPRESSION SCREENING [facility] Start: 06-23-2022 End: 08-23-2022 BLOOD TB SCREEN BLOOD TB SCREEN Lab Routine Wellness examination Expected: 06/23/2022, Expires: 08/23/2022 [facility] Work Phone: Comment on above: Expected: 06/23/2022 , Expires: 08/23/2022 Start: 06-23-2022 End: 08-23-2022 CBC panel - Blood by Automated count CBC Lab Routine Wellness examination Expected: 06/23/2022, Expires: 08/23/2022 [facility] Work Phone: Comment on above: Expected: 06/23/2022 , Expires: 08/23/2022 Start: 06-23-2022 End: 08-23-2022 Comprehensive metabolic 2000 panel - Serum or Plasma COMP METABOLIC PANEL Lab Routine Wellness examination Expected: 06/23/2022, Expires: 08/23/2022 [facility] Work Phone: Comment on above: Expected: 06/23/2022 , Expires: 08/23/2022 Start: 06-23-2022 End: 08-23-2022 Hemoglobin A1c in Blood HGB A1C Lab Routine Wellness examination Expected: 06/23/2022, Expires: 08/23/2022 [facility] Work Phone: Comment on above: Expected: 06/23/2022 , Expires: 08/23/2022 Start: 06-23-2022 End: 08-23-2022 Lipid 1996 panel - Serum or Plasma LIPID PANEL BASIC Lab Routine Wellness examination Expected: 06/23/2022, Expires: 08/23/2022 [facility] Work Phone: Comment on above: Expected: 06/23/2022 , Expires: 08/23/2022 Start: 06-23-2022 End: 08-23-2022 Thyrotropin [Units/volume] in Serum or Plasma TSH BLD Lab Routine Dysphagia, unspecified type Expected: 06/23/2022, Expires: 08/23/2022 [facility] Work Phone: Comment on above: Expected: 06/23/2022 , Expires: 08/23/2022 Start: 06-09-2022 Adult depression screening assessment DEPRESSION SCREENING [facility] Start: 05-29-2022 9vhpv vacc 2/3 dose sched im use HUMAN PAPILLOMAVIRUS 9-VALENT HPV IM Immunization/Injection Routine Expected: 05/29/2022 (Approximate) [facility] Work Phone: Comment on above: Expected: 05/29/2022 (Approximate) Start: 03-18-2022 End: 03-18-2023 PELVIC US [facility] PELVIC US [facility] Anc Imaging Routine Pelvic pain in female Deep dyspareunia Abnormal uterine bleeding (AUB) Expected: 03/18/2022, Expires: 03/18/2023 [facility] Work Phone: Comment on above: Expected: 03/18/2022 , Expires: 03/18/2023 Start: 11-16-2021 PAP TEST[address] PAP TESTING [facility] Start: 11-12-2021 Influenza vaccination INFLUENZA (#1) [facility] Start: 11-11-2021 COVID-19 VACCINE (3 - Booster for Moderna series) COVID-19 VACCINE (3 - Booster for Moderna series) [facility] Start: 08-16-2021 HPV TEST[address] TESTING [facility] Start: 08-06-2021 COVID-19 VACCINE (3 - Booster for Moderna series) COVID-19 VACCINE (3 - Booster for Moderna series) [facility] Start: 06-04-2021 COVID-19 VACCINE (2 - Moderna 3-dose series) COVID-19 VACCINE (2 - Moderna 3-dose series) [facility] Start: 03-23-2021 End: 03-23-2022 Albuterol 90 micrograms/ Inhalation MDI 2 inhalation Every 6 Hours PRN ; (PROVENTIL, VENTOLIN)DOSE = 2 inhalation Once via MDIClinician Notes: Dispensing this medication. May take 2 puffs every 4 hours as needed for shortness of breath. I have reviewed this medication with the patient prior to dischargeNotes from Pharmacy: [facility] Start: 22-Mar-2021 End: 22-Mar-2022 Ordered: 22-Mar-2021 [facility] Intent Comments: Dispensing this medication. May take 2 puffs every 4 hours as needed for shortness of breath. I have reviewed this medication with the patient prior to discharge [facility] Comment on above: Dispensing this medi cation. May take 2 puffs every 4 hours as needed for shortness of breath. I have reviewed this medication with the patient prior to discharge Start: 08-16-2010 ONE PNEUMOVAX PRIOR TO AGE 65 ONE PNEUMOVAX PRIOR TO AGE 66 [facility] Start: 08-16-2010 Pneumococcal vaccination Pneumococcal Vaccine (1 of 2 - PCV) [facility] Start: 08-16-1997 PNEUMOCOCCAL (1 - PCV) PNEUMOCOCCAL (1 - PCV) [facility] Start: 08-16-[address] [facility] Bacteria identified in Urine by Culture URINE CULTURE Microbiology Routine Dysuria Ordered: 12/14/2023 [facility] Work Phone: Comment on above: Ordered: 12/14/2023 COLPOSCOPY COLPOSCOPY Proce dures Routine 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 Ordered: 03/23/2022 [facility] Work Phone: Comment on above: Ordered: 03/23/2022 PAP FLUID CERVICAL SCREENING PAP FLUID CERVICAL SCREENING Lab Routine Screening for cervical cancer Encounter for screening for human papillomavirus (HPV) 03/18/2022 12:15 PM EST [facility] Work Phone: Patient Education [facility] Work Phone: Patient referral [facility] Work Phone: Pneumococcal vaccination PNEUMOCOCCAL VACCINE (PREVNAR 20) Immunization/Injection Routine Encounter for immunization 1 Occurrences starting 09/07/2021 [facility] Work Phone: Comment on above: 1 Occurrences starti ng 09/07/2021 End: 07-09-2022 SPIROMETRY WITH DILATOR IF OBSTRUCTED SPIROMETRY WITH DILATOR IF OBSTRUCTED PFT Routine Cough Shortness of breath 1 Occurrences starting 06/09/2021 until 07/09/2022 [facility] Work Phone: Comment on above: 1 Occurrences starti ng 06/09/2021 until 07/09/2022 Therapeutic prophylactic/dx injection subq/im THER/PROPH/DIAG INJ, SC/IM Procedures Routine Need for prophylactic vaccination/inoculation against viral disease Ordered: 03/30/2022 [facility] Work Phone: Comment on above: Ordered: 03/30/2022 End: 06-21-2024 US Pelvis transvaginal US FEMALE PELVIS TRANSVAG Radiology Routine Ovarian cyst, right 1 Occurrences starting 05/23/2023 until 06/21/2024 [facility] Work Phone: Comment on above: 1 Occurrences starti ng 05/23/2023 until 06/21/2024 US Pelvis transvaginal US FEMALE PELVIS TRANSVAG Radiology Routine Ovarian cyst, right 06/02/2023 9:24 AM EDT [facility] Work Phone: End: 08-08-2025 XR Hand - left PA and Lateral and Oblique XR HAND GENERAL 3V PA/LAT/OBL LEFT Radiology Routine Pain 1 Occurrences starting 07/09/2024 until 08/08/2025 [facility] Work Phone: Comment on above: 1 Occurrences starti ng 07/09/2024 until 08/08/2025 End: 07-22-2024 XR Shoulder - left 3 Views XR SHOULDER GENERAL 3V OR MORE AP/TRUE AP/OTHER LEFT Radiology STAT Pain 1 Occurrences starting 07/22/2023 until 07/22/2024 [facility] Work Phone: Comment on above: 1 Occurrences starti ng 07/22/2023 until 07/22/2024 [facility] Immunizations Immunization Date Immunization Notes Care Provider Brian landers 07-12-2022 Human Papillomavirus 9-valent vaccine Isma Almanza MD Work Phone: [facility] Work Phone: 03-30-2022 Human Papillomavirus 9-valent vaccine Amy Darling MD Work Phone: [facility] 04-29-2021 influenza, injectabl e, quadrivalent, preservative free [facility] 04-29-2021 influenza, seasonal, injectable Dr. Isma Almanza Work Phone: [facility] Work Phone: 04-29-2021 influenza, seasonal, injectable, preservative free Abeba Chase WEALTH MANAGEMENT MANAGER.EQUIPMENT OPERATOR [employer] Work Phone: [facility] Work Phone: 04-29-2021 influenza virus vacc ine, unspecified formulation Antonette Rowell WEALTH MANAGEMENT MANAGER.LYFT DRIVER Work Phone: [facility] 12-31-2019 influenza, injectabl e, quadrivalent, preservative free [facility] 12-31-2019 influenza, seasonal, injectable Dr. Isma Almanza Work Phone: [facility] Work Phone: 12-31-2019 influenza, seasonal, injectable, preservative free Abeba Chase WEALTH MANAGEMENT MANAGER.EQUIPMENT OPERATOR [employer] Work Phone: [facility] Work Phone: 03-30-2019 tetanus toxoid, redu ray diphtheria toxoid, and acellular pertussis vaccine, adsorbed Abeba Chase WEALTH MANAGEMENT MANAGER.EQUIPMENT OPERATOR [employer] Work Phone: [facility] 01-02-2019 influenza, injectabl e, quadrivalent, preservative free [facility] 01-02-2019 influenza, seasonal, injectable Dr. Isma Almanza Work Phone: [facility] Work Phone: 01-02-2019 influenza, seasonal, injectable, preservative free Abeba Chase WEALTH MANAGEMENT MANAGER.EQUIPMENT OPERATOR [employer] Work Phone: [facility] Work Phone: 12-09-2017 influenza, injectabl e, quadrivalent, preservative free [facility] 12-09-2017 influenza, seasonal, injectable Dr. Isma Almanza Work Phone: [facility] Work Phone: 12-09-2017 influenza, seasonal, injectable, preservative free Abeba Chase WEALTH MANAGEMENT MANAGER.EQUIPMENT OPERATOR [employer] Work Phone: [facility] Work Phone: 12-27-2016 influenza, injectabl e, quadrivalent, preservative free [facility] 12-27-2016 influenza, seasonal, injectable Dr. Isma Almanza Work Phone: [facility] Work Phone: 12-27-2016 influenza, seasonal, injectable, preservative free Abeba Chase WEALTH MANAGEMENT MANAGER.EQUIPMENT OPERATOR [employer] Work Phone: [facility] Work Phone: 01-07-2016 influenza virus vacc ine, unspecified formulation Abeba Chase WEALTH MANAGEMENT MANAGER.EQUIPMENT OPERATOR [employer] Work Phone: [facility] Work Phone: 01-05-2016 influenza, injectabl e, quadrivalent, preservative free [facility] 01-05-2016 influenza, seasonal, injectable Dr. Isma Almanza Work Phone: [facility] Work Phone: 01-05-2016 influenza, seasonal, injectable, preservative free Abeba Chase WEALTH MANAGEMENT MANAGER.EQUIPMENT OPERATOR [employer] Work Phone: [facility] Work Phone: 10-03-2013 tetanus toxoid, redu ray diphtheria toxoid, and acellular pertussis vaccine, adsorbed Abeba Chase WEALTH MANAGEMENT MANAGER.EQUIPMENT OPERATOR [employer] Work Phone: [facility] 02-28-[address] Isma Almanza Work Phone: [facility] 02-28-2013 influenza, seasonal, injectable, preservative free [facility] WEALTH MANAGEMENT MANAGER.EQUIPMENT OPERATOR [employer] YARD Work Phone: [facility] Work Phone: 01-06-2010 influenza virus vacc ine, unspecified formulation [facility] WEALTH MANAGEMENT MANAGER.EQUIPMENT OPERATOR [employer]ARD Work Phone: [facility] Work Phone: 01-15-2009 novel Influenza-H1N1 -09, live virus for nasal administration [facility] WEALTH MANAGEMENT MANAGER.EQUIPMENT OPERATOR [employer] YARD Work Phone: [facility] Work Phone: 12-11-2008 tuberculin skin test ; purified protein derivative solution, intradermal [facility] Work Phone: [facility] Work Phone: 11-27-2008 tuberculin skin test ; purified protein derivative solution, intradermal [facility] Work Phone: [facility] 11-01-2007 tuberculin skin test ; purified protein derivative solution, intradermal [facility] Work Phone: [facility] Work Phone: 08-09-2007 Meningococcal, MCV4, unspecified conjugate formulation(groups A, C, Y and W-135) [facility] WEALTH MANAGEMENT MANAGER.EQUIPMENT OPERATOR [employer] Work Phone: [facility] Work Phone: 06-01-2004 hepatitis B vaccine, pediatric or pediatric/adolescent dosage [facility] WEALTH MANAGEMENT MANAGER.EQUIPMENT OPERATOR [employer] Work Phone: [facility] Work Phone: 06-01-2004 tetanus and diphther ia toxoids, not adsorbed, for adult use [facility] WEALTH MANAGEMENT MANAGER.EQUIPMENT OPERATOR [employer] Work Phone: [facility] Work Phone: 08-05-2003 hepatitis B vaccine, pediatric or pediatric/adolescent dosage [facility] WEALTH MANAGEMENT MANAGER.EQUIPMENT OPERATOR [employer] Work Phone: [facility] Work Phone: 08-05-2003 measles, mumps and rubella virus vaccine [facility] WEALTH MANAGEMENT MANAGER.EQUIPMENT OPERATOR [employer]ARD Work Phone: [facility] Work Phone: 04-16-1993 diphtheria, tetanus toxoids and acellular pertussis vaccine [facility] WEALTH MANAGEMENT MANAGER.EQUIPMENT OPERATOR [employer] Work Phone: [facility] Work Phone: 04-16-1993 haemophilus influenz ae type b vaccine, HbOC conjugate [facility] WEALTH MANAGEMENT MANAGER.EQUIPMENT OPERATOR [employer] Work Phone: [facility] Work Phone: 04-16-1993 measles, mumps and rubella virus vaccine [facility] WEALTH MANAGEMENT MANAGER.EQUIPMENT OPERATOR [employer]ARD Work Phone: [facility] Work Phone: 12-04-1992 haemophilus influenz ae type b vaccine, HbOC conjugate [facility] WEALTH MANAGEMENT MANAGER.EQUIPMENT OPERATOR [employer]ARD Work Phone: [facility] Work Phone: 12-04-1992 hepatitis B vaccine, pediatric or pediatric/adolescent dosage [facility] WEALTH MANAGEMENT MANAGER.EQUIPMENT OPERATOR [employer] Work Phone: [facility] Work Phone: 12-04-1992 measles, mumps and rubella virus vaccine [facility] WEALTH MANAGEMENT MANAGER.EQUIPMENT OPERATOR [employer]ARD Work Phone: [facility] Work Phone: 08-12-1992 tuberculin skin test ; purified protein derivative solution, intradermal [facility] Work Phone: [facility] 02-25-1992 diphtheria, tetanus toxoids and pertussis vaccine [facility] WEALTH MANAGEMENT MANAGER.EQUIPMENT OPERATOR [employer] YARD Work Phone: [facility] Work Phone: 02-25-1992 haemophilus influenz ae type b vaccine, HbOC conjugate [facility] WEALTH MANAGEMENT MANAGER.EQUIPMENT OPERATOR [employer] Work Phone: [facility] Work Phone: 02-25-1992 trivalent poliovirus vaccine, live, oral [facility] WEALTH MANAGEMENT MANAGER.EQUIPMENT OPERATOR [employer]AL YARD Work Phone: [facility] Work Phone: 1991 diphtheria, tetanus toxoids and pertussis vaccine Abeba Chase WEALTH MANAGEMENT MANAGER.EQUIPMENT OPERATOR [employer]ARD Work Phone: [facility] Work Phone: 1991 haemophilus influenz ae type b vaccine, HbOC conjugate Abeba Chase WEALTH MANAGEMENT MANAGER.EQUIPMENT OPERATOR [employer]ARD Work Phone: [facility] Work Phone: 1991 trivalent poliovirus vaccine, live, oral Abeba Chase WEALTH MANAGEMENT MANAGER.EQUIPMENT OPERATOR [employer]ARD Work Phone: [facility] Work Phone: 1991 diphtheria, tetanus toxoids and pertussis vaccine Abeba Chase WEALTH MANAGEMENT MANAGER.EQUIPMENT OPERATOR [employer]ARD Work Phone: [facility] Work Phone: 1991 haemophilus influenz ae type b vaccine, HbOC conjugate Abeba [place] WEALTH MANAGEMENT MANAGER.EQUIPMENT OPERATOR INTERMODAL YARD Work Phone: [facility] Work Phone: 1991 trivalent poliovirus vaccine, live, oral Abeba Chase WEALTH MANAGEMENT MANAGER.EQUIPMENT OPERATOR [employer]ARD Work Phone: [facility] Work Phone: Payers Date Payer Category Payer Self-pay [id number] 2017 Unknown 2015 Medicaid [employer] [id number] 2015-Present [phone] [address] [place] [address] Medicaid [id number] 2015 Medicaid [id number] 2015 Unknown SELF PAY INSURANCE [id number] 2015 Unknown [id number] 1991 Unknown [id number] 1991 Unknown [id number] 1991 Unknown [id number] Unknown [id number] Unknown [id number] Unknown [id number] Unknown [id number] Unknown [id number] Unknown [id number] Unknown [id number] Unknown [id number] Unknown [id number] Unknown [id number] Unknown [id number] [id number] Unknown [id number] Unknown [id number] [id number] Unknown [id number] Unknown [id number] Social History Date Type Detail Facility [facility] Start: 07-20-2021 End: 06-22-2023 Tobacco smoking consumption unknown [facility] Start: 02-27-2021 End: 12-05-2023 Tobacco smoking status NHIS Smokes tobacco daily [facility] History of tobacco use Cigarette Smoker [facility] Start: 02-27-2021 End: 08-30-2022 Cigarettes smoked current (pack per day) - Reported 0.5 [facility] Start: 02-27-2021 End: 12-05-2023 Tobacco use and exposure Smokeless tobacco non-user [facility] Start: 06-09-2021 End: 03-27-2024 Alcohol intake Current non-drinker of alcohol (finding) [facility] Start: 1990 Sex Assigned At Not on file [facility] Start: 05-30-2021 End: 02-09-2022 Exposure to SARS-CoV-2 (event) Not sure [facility] Work Phone: Start: 07-14-2021 End: 12-24-2021 Tobacco Comment 1 ppd started at age 18 [facility] Start: 09-02-2021 End: 05-26-2022 History SDOH Alcohol Frequency 2 [facility] Start: 09-02-2021 End: 12-09-2021 History SDOH Alcohol Std Drinks 1 [facility] Start: 09-02-2021 End: 05-26-2022 History SDOH Social Connections Living 3 [facility] Start: 01-27-2020 None [facility] Start: 01-27-2020 With Family [facility] Start: 04-27-2019 Cigarettes [facility] Start: 1990 Sex Assigned At Female [facility] Start: 05-26-2022 History SDOH Alcohol Std Drinks 0 [facility] Start: 05-26-2022 History SDOH Social Connections Phone 5 [facility] Start: 05-26-2022 History SDOH Social Connections Get Together 4 [facility] Start: 05-26-2022 History SDOH Social Connections Living 6 [facility] Start: 05-26-2022 End: 08-30-2022 Social connection and isolation panel [facility] Do you belong to any clubs or organizations such as buddhist groups, unions, fraternal or athletic groups, or school groups? No [facility] Are you now , , , , never or living with a partner? [facility] How often to you hav e a drink containing alcohol? Never [facility] How many standard drinks containing alcohol do you have on a typical day? Patient does not drink [facility] How hard is it for y ou to pay for the very basics like food, housing, medical care, and heating Not very hard [facility] Do you feel stress - tense, restless, nervous, or anxious, or unable to sleep at night because your mind is troubled all the time - these days [OSQ] Rather much [facility] (I/We) worried caryl er (my/our) food would run out before (I/we) got money to buy more. Never true [facility] Start: 08-29-2022 Gender identity Identifies as female gender (finding) [facility] Are you now , , , , never or living with a partner? [facility] How often to you hav e a drink containing alcohol? Monthly or less [facility] How many standard drinks containing alcohol do you have on a typical day? [address] [facility] How hard is it for y ou to pay for the very basics like food, housing, medical care, and heating Somewhat hard [facility] Do you feel stress - tense, restless, nervous, or anxious, or unable to sleep at night because your mind is troubled all the time - these days [OSQ] To some extent [facility] Start: 01-08-2022 End: 01-18-2022 Exposure to SARS-CoV-2 (event) Yes [facility] Tobacco smoking status Never smo ked tobacco (finding) [facility] Sexual Orientation Angela jones Start: 07-24-2016 Sex Female (finding) [facility] NEGATED: Highlighted row [facility] Goals Date Patient Goal Desired Activity /State Functional Status Date Assessment Result Facility 07-22-2024 Functional Status Independent Angela Fred carreon [facility] 07-22-2024 Functional Status Standard Safety ID band on [facility] 07-22-2024 Functional Status N/A Angela carreon [facility] 07-23-2014 Are you deaf, or do you have serious difficulty hearing No 07/23/2014 3:50 PM EDT Jennifer Rodríguez [facility] 07-23-2014 Are you blind, or do you have serious difficulty seeing, even when wearing glasses No 07/23/2014 3:50 PM EDT Jennifer Rodríguez [facility] 07-23-2014 Do you have serious difficulty walking or climbing stairs No 07/23/2014 3:50 PM EDT Jennifer Rodríguez [facility] 07-23-2014 Do you have difficul ty dressing or bathing No 07/23/2014 3:50 PM EDT Jennifer Rodríguez [facility] 07-23-2014 Because of a physica l, mental, or emotional condition, do you have difficulty doing errands alone such as visiting a physician's office or shopping No 07/23/2014 3:50 PM EDT M[facility] Rodriguez [facility] Mental Status Date Assessment Result Facility 07-22-2024 Mental Status Oriented x 4 [facility] 07-22-2024 Mental Status [facility] 06-10-2023 Cognitive function Voice/Name [facility] Work Phone: 07-23-2014 Because of a physica l, mental, or emotional condition, do you have serious difficulty concentrating, remembering, or making decisions No 07/23/2014 3:50 PM EDT [facility] Rodriguez [facility] Clinical Notes 11-16-2018 to 08-20-2024 Tressa Steward, AZAM.LYFT DRIVER - 08/20/2024 3:58 PM EDT Note Date & Type Note Facility 08-20-2024 History of Present illness Narrative Subjective The history is provided by the patient. No specialized language instructor was used. HPI Stella Collins is a 34 year old female who presents today for CC of bilateral eye redness and drainage for 2 days. She tried otc clear eyes without relief. She denies any known foreign body, no runny nose, ear pain, cough, or congestion. No fever. Wear corrective thao, no contact lens. BP 130/90 Pulse 110 Temp 36.8 C (98.3 F) Resp 20 Wt 97.5 kg (214 lb 15.2 oz) LMP 07/15/2020 SpO2 98% BMI 40.61 kg/m Social History Tobacco Use Smoking status: Every Day Current packs/day: 1.00 Average packs/day: 1 pack/day for 5.0 years (5.0 ttl pk-yrs) Types: Cigarettes Smokeless tobacco: Never Tobacco comments: 1 ppd started at age 18 Vaping Use Vaping status: Never Used Substance Use Topics Alcohol use: No Drug use: No PAST MEDICAL HISTORY Diagnosis Date Anemia WITH Anxiety and depression 09/07/2021 I have confirmed and edited as necessary, the [facility] Review of Systems Constitutional: Negative for chills and fever. HENT: Negative for congestion, ear pain, sinus pain and sore throat. Eyes: Positive for discharge and redness. Respiratory: Negative for cough, sputum production, shortness of breath and wheezing. Cardiovascular: Negative for chest pain. Musculoskeletal: Negative for myalgias. Neurological: Negative for headaches. Objective Physical Exam Vitals and nursing note reviewed. HENT: Head: Normocephalic and atraumatic. Right Ear: Tympanic membrane, ear canal and external ear normal. Left Ear: Tympanic membrane, ear canal and external ear normal. Nose: No mucosal edema, congestion or rhinorrhea. Mouth/Throat: Pharynx: No posterior oropharyngeal erythema, uvula swelling or postnasal drip. Eyes: General: Lids are everted, no foreign bodies appreciated. Vision grossly intact. Right eye: Discharge present. No foreign body. Left eye: Discharge present.No foreign body. Extraocular Movements: Extraocular movements intact. Conjunctiva/sclera: Right eye: Right conjunctiva is injected. Left eye: Left conjunctiva is injected. Pupils: Pupils are equal, round, and reactive to light. Funduscopic exam: Right eye: Red reflex present. Left eye: Red reflex present. Pulmonary: Effort: Pulmonary effort is normal. Skin: General: Skin is warm and dry. Neurological: Mental Status: She is alert and oriented to person, place, and time. Psychiatric: Mood and Affect: Affect normal. Differential Diagnoses - conjunctivitis is more likely for the following reason(s): suggested by H&P ASSESSMENT/PLAN: 1. Acute conjunctivitis of both eyes, unspecified acute conjunctivitis type - ICD9: 372.00, ICD10: H10.33 Bacterial - see medication orders - course and contagiousness issues discussed, including hand washing. - Instructed to call if high fever, development of periorbital redness or swelling, eye pain, visual changes, concerns or if symptoms persist. Diagnosis and treatment plan were discussed and questions were answered to the patient's satisfaction. Pt acknowledged understanding of concepts and follow up plan. Specific signs and symptoms that would indicate the need for higher level of care were discussed in detail warranting prompt ER evaluation. Tressa Steward APRN.ANKIT documented in this encounter [facility] 07-22-2024 Hospital Discharge instructions Patient Education 07/22/2024 11:28:36 Understanding Methamphetamine Abuse and Addiction Understanding Methamphetamine Abuse and Addiction Methamphetamine (also known as meth or crystal meth) is a manmade drug that affects brain function. Over time, it can change the way you think and act. Some of these changes can cause you great distress. And they can disrupt your life. But methamphetamine addiction can be treated. If you or a loved one has a drug problem, tell someone you trust. That is the first step in getting help. What does methamphetamine do? Some drugs slow down your system. But methamphetamine speeds it up. In fact, methamphetamine is often known as speed, or crank, Users have increased energy. Some may go days without food or sleep. The drug comes in many forms that users inject, smoke, inhale, or eat. Methamphetamine causes an intense gay that may last from minutes to hours. What are the risks? Methamphetamine triggers your brain to release large amounts of the chemical dopamine. This causes feelings of extreme well-being. It may also damage the cells that produce dopamine. This can make it harder to feel pleasure over time. Using methamphetamine may also lead to these problems: Addiction. This means you develop a strong physical and psychological dependence on the drug. And you may not be able to stop taking it on your own. A potent form of methamphetamine known as ice or crystal meth is even more addictive. Overdose. You may need more and more methamphetamine to feel good. But taking too much can lead to seizures or . Exposure to HIV. Using shared needles to inject methamphetamine can spread the virus that cause AIDS and hepatitis. Hallucinations (hearing and seeing things that aren t there). Paranoia (intense feelings of fear of other people). Violent action Bleeding in the brain Severe dental problems How can you get help? In many cases, your healthcare provider can help. Or, check your phone book or the Internet for mental health centers and drug treatment programs. You can also try the resources below. Resources Substance Abuse and Mental Health Services Helpline 940-510-FEES (125-685-4956) http://www.[facility].gov/treatment/ Crystal [employer] 717-065-0393 www.crystalmeth.org 8413-[address] [place] [address]. All rights reserved. This information is not intended as a substitute for professional medical care. Always follow your healthcare professional's instructions. Follow Up Care 07/22/2024 01:33:48 With:Call Physician Referral Address:Unknown When:2-4 days [facility] 07-22-2024 Emergency department Discharge summary Discharge Instructions Thank you for allowing [facility] to assist you with your healthcare needs. The following is important discharge information regarding your hospital visit. Diagnosis from Today's Visit Methamphetamine abuse What to Do Next Instructions from Your Care Team No qualifying data available. Post Acute Orders No qualifying data available. You Need to Schedule the Following Appointments Follow Up with Call Physician Referral When:Within 2-4 days Allergies NKA Medications Please ask your primary doctor or pharmacist before taking any other medication not listed, including over the counter drugs, herbal medications, vitamins and or supplements as they may interact with your home medications. What How Much When Instructions Last Dose Unchanged etonogestrel (Implanon) 68 Milligram Subcutaneous Once Unchanged omeprazole (NF) (omeprazole 20 mg oral delayed release capsule (NF)) 1 cap by mouth Once a day before a meal Please take this list to your next doctor s visit. Bring all medications you take, including over the counter medications, herbals and other supplements with you to your doctor s visit. Patients and families are reminded to discard old lists and to update any records with all medication providers or retail pharmacies. Education Materials Understanding Methamphetamine Abuse and Addiction Methamphetamine (also known as meth or crystal meth) is a manmade drug that affects brain function. Over time, it can change the way you think and act. Some of these changes can cause you great distress. And they can disrupt your life. But methamphetamine addiction can be treated. If you or a loved one has a drug problem, tell someone you trust. That is the first step in getting help. What does methamphetamine do? Some drugs slow down your system. But methamphetamine speeds it up. In fact, methamphetamine is often known as speed, or crank, Users have increased energy. Some may go days without food or sleep. The drug comes in many forms that users inject, smoke, inhale, or eat. Methamphetamine causes an intense gay that may last from minutes to hours. What are the risks? Methamphetamine triggers your brain to release large amounts of the chemical dopamine. This causes feelings of extreme well-being. It may also damage the cells that produce dopamine. This can make it harder to feel pleasure over time. Using methamphetamine may also lead to these problems: Addiction. This means you develop a strong physical and psychological dependence on the drug. And you may not be able to stop taking it on your own. A potent form of methamphetamine known as ice or crystal meth is even more addictive. Overdose. You may need more and more methamphetamine to feel good. But taking too much can lead to seizures or . Exposure to HIV. Using shared needles to inject methamphetamine can spread the virus that cause AIDS and hepatitis. Hallucinations (hearing and seeing things that aren t there). Paranoia (intense feelings of fear of other people). Violent action Bleeding in the brain Severe dental problems How can you get help? In many cases, your healthcare provider can help. Or, check your phone book or the Internet for mental health centers and drug treatment programs. You can also try the resources below. Resources Substance Abuse and Mental Health Services Helpline 395-319-QIJU (085-826-2386) http://www.samhsa.gov/treatment/ Crystal Meth Anonymous 340-894-1862 www.crystalmeth.org 7667-8083 [employer]. [address] [place] [address], [place] [address]. All rights reserved. This information is not intended as a substitute for professional medical care. Always follow your healthcare professional's instructions. Additional Information VACCINATE! IT SAVES LIVES! Members of the community who have not yet received the COVID-19 vaccine and would like to receive it can visit one of [facility] vaccine clinics. There are many vaccine clinic locations within the [facility]. For locations and available times, please visit www.gettheshot.coronavirus.[place]. gov/. It is important to note that some COVID mobile vaccine clinics are held outdoors and may be canceled in rainy or stormy conditions. To learn more about pediatric vaccinations (ages 5-11), we invite you to visit the [facility] webpage. https://www.[employer].org/p ages/8490-Wbvrl-Meynpcnbbgd-Freq ircgld-Vhpvs-Ixohfinps.html To learn more about the COVID-19 vaccine, we invite you to visit the CDC website for a list of frequently asked questions. https://www.cdc.gov/coronavirus/ 2019-ncov/vaccines/faq.html [facility] Patient Portal Access Instructions: Stay connected with your healthcare team and access your personal medical information anytime with the [facility] Patient Portal. If you would like a full copy of your medical records please contact the [facility] Medical Records Department Tuesday through Tuesday between 8a.m. and 4:30p.m. Please follow the directions below to access the portal: 1.Access the email account you provided upon registration to the [facility].2.Look for an invitation email from [facility].3.Open the email and access the invitation link: Accept Invitation to [facility]4.Fill in the required gillette to create your account. Sign into [email or web address] with your username and password that you created in the above steps to stay up to date. You can then view a summary of results, a summary of your visits, and the ability to download your summaries to your computer or send the information securely to a physician. Remember that your healthcare information is confidential, so carefully consider who you will allow to register on the [facility] Patient Portal for access to your information. You can also access the [facility] Patient Portal on the Medic Trace. Simply click on Health Records under Health Data and then click on the [employer] logo. HOW TO SAFELY DISPOSE OF PRESCRIPTION MEDICATIONS Please use one of the following methods to safely dispose of your unused medications. 1.Use a drug disposal kit: the drug disposal pouch allows you to safely discard your old and unused drugs. Ask your nurse to give you one when you are discharged.2.Visit a local take-back location: Many local pharmacies and police departments have programs that collect old and unwanted prescription drugs. Call your local pharmacy or go to http://Z[employer]/5N0Hn5p to find one close to you.3.Make use of household items: Use cat litter or old coffee grounds to dispose medications if other options are not available. Mix your drugs with these household products, seal them in an airtight container and throw it into the garbage. Call [facility]: [phone] to be sure your drugs can be disposed of in this way. Some medicines may require a different approach.4.Never flush your medications down the toilet. IF YOU HAVE BEEN PRESCRIBED AN OPIOIDS FOR PAIN If you have been prescribed an opioid (such as hydrocodone, oxycodone or morphine), it is critical to understand the possible side effects and risks of opioid pain medications. Even when taken as directed, opioids can have several side effects including: Tolerance, meaning you might need to take more of a medication for the same pain relief. Nausea, vomiting and/or constipation. Sleepiness, dizziness, dry mouth, confusion, depression or itching. Physical dependence, meaning you have withdrawal symptoms when a medication is stopped ? this can develop within a few days. KNOW YOUR RESPONSIBILITIES It is important to know exactly how much and how often to take the opioid pain medications you are prescribed. Never take opioids in higher amounts or more often than prescribed. Do not combine opioids with alcohol or other drugs that cause drowsiness, such as benzodiazepines, also known as benzos, including diazepam and alprazolam, muscle relaxants or sleep aids. Never sell or share prescription opioids. This is illegal. Store opioids in a secure place and out of reach of others (including children, family, friends and visitors). The last page(s) of this document has been signed and retained as a CHART COPY Signatures Patient Education Materials Understanding Methamphetamine Abuse and Addiction Medication Leaflets My discharge plan and instructions have been reviewed and explained to me and I,STELLA COLLINS understand my current condition and have read and understand these discharge instructions. I have received a written copy of the plan/instructions. If I have questions, I am aware that I should contact my doctor. 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 The following is important discharge information regarding your hospital visit. Diagnosis from Today's Visit Methamphetamine abuse What to Do Next Instructions from Your Care Team No qualifying data available. Post Acute Orders No qualifying data available. You Need to Schedule the Following Appointments Follow Up with Call Physician Referral When:Within 2-4 days Allergies NKA Medications Please ask your primary doctor or pharmacist before taking any other medication not listed, including over the counter drugs, herbal medications, vitamins and or supplements as they may interact with your home medications. What How Much When Instructions Last Dose Unchanged etonogestrel (Implanon) 68 Milligram Subcutaneous Once Unchanged omeprazole (NF) (omeprazole 20 mg oral delayed release capsule (NF)) 1 cap by mouth Once a day before a meal Please take this list to your next doctor s visit. Bring all medications you take, including over the counter medications, herbals and other supplements with you to your doctor s visit. Patients and families are reminded to discard old lists and to update any records with all medication providers or retail pharmacies. Education Materials Understanding Methamphetamine Abuse and Addiction Methamphetamine (also known as meth or crystal meth) is a manmade drug that affects brain function. Over time, it can change the way you think and act. Some of these changes can cause you great distress. And they can disrupt your life. But methamphetamine addiction can be treated. If you or a loved one has a drug problem, tell someone you trust. That is the first step in getting help. What does methamphetamine do? Some drugs slow down your system. But methamphetamine speeds it up. In fact, methamphetamine is often known as speed, or crank, Users have increased energy. Some may go days without food or sleep. The drug comes in many forms that users inject, smoke, inhale, or eat. Methamphetamine causes an intense gay that may last from minutes to hours. What are the risks? Methamphetamine triggers your brain to release large amounts of the chemical dopamine. This causes feelings of extreme well-being. It may also damage the cells that produce dopamine. This can make it harder to feel pleasure over time. Using methamphetamine may also lead to these problems: Addiction. This means you develop a strong physical and psychological dependence on the drug. And you may not be able to stop taking it on your own. A potent form of methamphetamine known as ice or crystal meth is even more addictive. Overdose. You may need more and more methamphetamine to feel good. But taking too much can lead to seizures or . Exposure to HIV. Using shared needles to inject methamphetamine can spread the virus that cause AIDS and hepatitis. Hallucinations (hearing and seeing things that aren t there). Paranoia (intense feelings of fear of other people). Violent action Bleeding in the brain Severe dental problems How can you get help? In many cases, your healthcare provider can help. Or, check your phone book or the Internet for mental health centers and drug treatment programs. You can also try the resources below. Resources Substance Abuse and Mental Health Services Helpline 199-802-FVHN (361-014-0201) http://www.sama.gov/treatment/ Crystal Meth Anonymous 966-367-7542 www.[employer].org 8285-4915 [employer]. [address] [place] [address], [place] [address]. All rights reserved. This information is not intended as a substitute for professional medical care. Always follow your healthcare professional's instructions. Additional Information VACCINATE! IT SAVES LIVES! Members of the community who have not yet received the COVID-19 vaccine and would like to receive it can visit one of [facility] vaccine clinics. There are many vaccine clinic locations within the State. For locations and available times, please visit www.gettheshot.coronavirus.[place]. gov/. It is important to note that some COVID mobile vaccine clinics are held outdoors and may be canceled in rainy or stormy conditions. To learn more about pediatric vaccinations (ages 5-11), we invite you to visit the [facility] webpage. https://www.[facility].org/p ages/5573-Dbqtl-Lwcuddsyoav-Freq fbqnow-Wjnqq-Aasyhglky.html To learn more about the COVID-19 vaccine, we invite you to visit the CDC website for a list of frequently asked questions. https://www.cdc.gov/coronavirus/ 2019-ncov/vaccines/faq.html [facility] Patient Portal Access Instructions: Stay connected with your healthcare team and access your personal medical information anytime with the [facility] Patient Portal. If you would like a full copy of your medical records please contact the [facility] Medical Records Department Tuesday through Tuesday between 8a.m. and 4:30p.m. Please follow the directions below to access the portal: 1.Access the email account you provided upon registration to the hospital.2.Look for an invitation email from [facility].3.Open the email and access the invitation link: Accept Invitation to [facility]4.Fill in the required gillette to create your account. Sign into [email or web address].[email or web address] with your username and password that you created in the above steps to stay up to date. You can then view a summary of results, a summary of your visits, and the ability to download your summaries to your computer or send the information securely to a physician. Remember that your healthcare information is confidential, so carefully consider who you will allow to register on the [facility] Patient Portal for access to your information. You can also access the [facility] Patient Portal on the [employer]. Simply click on Health Records under Health Data and then click on the [facility] logo. HOW TO SAFELY DISPOSE OF PRESCRIPTION MEDICATIONS Please use one of the following methods to safely dispose of your unused medications. 1.Use a drug disposal kit: the drug disposal pouch allows you to safely discard your old and unused drugs. Ask your nurse to give you one when you are discharged.2.Visit a local take-back location: Many local pharmacies and police departments have programs that collect old and unwanted prescription drugs. Call your local pharmacy or go to http://Zigh[employer]/7W2Me8o to find one close to you.3.Make use of household items: Use cat litter or old coffee grounds to dispose medications if other options are not available. Mix your drugs with these household products, seal them in an airtight container and throw it into the garbage. Call [facility]: [phone] to be sure your drugs can be disposed of in this way. Some medicines may require a different approach.4.Never flush your medications down the toilet. IF YOU HAVE BEEN PRESCRIBED AN OPIOIDS FOR PAIN If you have been prescribed an opioid (such as hydrocodone, oxycodone or morphine), it is critical to understand the possible side effects and risks of opioid pain medications. Even when taken as directed, opioids can have several side effects including: Tolerance, meaning you might need to take more of a medication for the same pain relief. Nausea, vomiting and/or constipation. Sleepiness, dizziness, dry mouth, confusion, depression or itching. Physical dependence, meaning you have withdrawal symptoms when a medication is stopped ? this can develop within a few days. KNOW YOUR RESPONSIBILITIES It is important to know exactly how much and how often to take the opioid pain medications you are prescribed. Never take opioids in higher amounts or more often than prescribed. Do not combine opioids with alcohol or other drugs that cause drowsiness, such as benzodiazepines, also known as benzos, including diazepam and alprazolam, muscle relaxants or sleep aids. Never sell or share prescription opioids. This is illegal. Store opioids in a secure place and out of reach of others (including children, family, friends and visitors). The last page(s) of this document has been signed and retained as a CHART COPY Signatures Patient Education Materials Understanding Methamphetamine Abuse and Addiction Medication Leaflets My discharge plan and instructions have been reviewed and explained to me and IDENNIS KENDRA B understand my current condition and have read and understand these discharge instructions. I have received a written copy of the plan/instructions. If I have questions, I am aware that I should contact my doctor. 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 Automated exposure control, iterative reconstruction, and/or weight based adjustment of the mA/kV was utilized to reduce the radiation dose to as low as reasonably achievable. COMPARISON: None. HISTORY: ORDERING SYSTEM PROVIDED HISTORY: Reason for Exam: AMS. Pt appears to be on some kind of drug. unable to hold still. best scan possible Altered mental status FINDINGS: BRAIN/VENTRICLES: There is no acute intracranial hemorrhage, mass effect or midline shift. No abnormal extra-axial fluid collection. The box-white differentiation is maintained without evidence of an acute infarct. There is no evidence of hydrocephalus. ORBITS: The visualized portion of the orbits demonstrate no acute abnormality. SINUSES: The visualized paranasal sinuses and mastoid air cells demonstrate no acute abnormality. SOFT TISSUES/SKULL: No acute abnormality of the visualized skull or soft tissues. IMPRESSION: No acute intracranial abnormality. Interpreted by: Tien Macias MD Preliminary Report By: Tien Macias MD Electronically signed By Tien Macias MD Dictated Date: 07/22/2024 3:35:01 AM Prelim Date: 07/22/2024 3:36:23 AM Sign Date: 07/22/2024 3:36:23 AM Ordering Provider: MIGUEL A LERMA [facility]05-11-2025 Note* Exam Date Time Procedure Performing Provider Status 07/22/24 3:27 AM XR Chest 1 View TIEN MACIAS MD; Auth (Verified) [id number] ORIGINAL EXAMINATION: ONE XRAY VIEW OF THE CHEST 07/22/2024 3:28 am COMPARISON: None. HISTORY: ORDERING SYSTEM PROVIDED HISTORY: Reason for Exam: Altered mental status FINDINGS: The heart size is normal. There is hypoventilation of the lungs. No acute infiltrate or edema is present. There is no pleural fluid or pneumothorax. The skeletal structures are unremarkable. IMPRESSION: No acute abnormality of the chest. Interpreted by: Tien Macias MD Preliminary Report By: Tien Macias MD Electronically signed By Tien Macias MD Dictated Date: 07/22/2024 3:36:32 AM Prelim Date: 07/22/2024 3:37:02 AM Sign Date: 07/22/2024 3:37:02 AM Ordering Provider: MIGUEL A LERMA [facility]05-11-2025 Note* Exam Date Time Procedure Performing Provider Status 07/22/24 2:56 AM EKG [ED AOH] - CV MIGUEL A LERMA MD; Auth (Verified) ECG Final Report Sinus tachycardia Borderline T wave abnormalities Borderline prolonged QT interval Electronic Signature: MIGUEL A LERMA MD 07/22/2024 03:00:33 [facility]03-29-2025 NoteHNO ID: [id number] Author: LUCIA DARNELL PA-C Service: ? Author Type: Physician Bull Gang Worker Type: Progress Notes Filed: 06/09/2024 15:19 Note Text: This note was created using NoteWriter. Subjective Stella Collins is a 33 year old female. Patient is a 33-year-old female who complains of increased episodes of wheezing and cough that she has been experiencing for the past 3 to 4 days. Patient reports no congestion, sinus pressure, ear pain, sore throat or other illness symptoms. Patient denies fever, chills or myalgia. Patient does have asthma and has no history of COPD. Patient does not smoke. Patient has been using her ventilation medication with no improvement. Patient is requesting a refill of her albuterol nebulizer solution. Cough Associated symptoms include wheezing. Review of Systems Respiratory: Positive for cough and wheezing. All other systems reviewed and are negative. Objective BP 128/82 Pulse (!) 128 Temp 36.9 ?C (98.4 ?F) Resp 18 Wt 95.1 kg (209 lb 10.5 oz) LMP 07/15/2020 SpO2 97% BMI 39.61 kg/m? Physical Exam Vitals and nursing note reviewed. Constitutional: Appearance: Normal appearance. She is normal weight. HENT: Head: Normocephalic and atraumatic. Right Ear: Tympanic membrane, ear canal and external ear normal. Left Ear: Tympanic membrane, ear canal and external ear normal. Nose: Nose normal. Mouth/Throat: Mouth: Mucous membranes are moist. Pharynx: Oropharynx is clear. Eyes: Extraocular Movements: Extraocular movements intact. Conjunctiva/sclera: Conjunctivae normal. Pupils: Pupils are equal, round, and reactive to light. Cardiovascular: Rate and Rhythm: Normal rate and regular rhythm. Pulses: Normal pulses. Heart sounds: Normal heart sounds. Pulmonary: Effort: Pulmonary effort is normal. Breath sounds: Normal breath sounds. Musculoskeletal: Cervical back: Normal range of motion and neck supple. Skin: General: Skin is warm and dry. Capillary Refill: Capillary refill takes less than 2 seconds. Neurological: General: No focal deficit present. Mental Status: She is alert and oriented to person, place, and time. Psychiatric: Mood and Affect: Mood normal. Behavior: Behavior normal. Thought Content: Thought content normal. Judgment: Judgment normal. Assessment and Plan Physical exam findings as noted above. Patient was provided with prescriptions for prednisone 20 mg and albuterol 0.083% nebulizer solution. Patient was clearly advised to report to the emergency department if she develops worsening shortness of breath or other concerning symptoms. Patient verbalizes clear understanding of the above instructions. CLINICAL IMPRESSION: Acute Asthma Exacerbation; Medication Refill ASSESSMENT/PLAN: 1. Mild intermittent asthma with acute exacerbation - ICD9: 493.92, ICD10: J45.21 - ALBUTEROL SULFATE 2.5 MG/3 ML (0.083 %) SOLUTION FOR NEBULIZATION - PREDNISONE 20 MG TABLET MDM Risk of Complications, Morbidity, and/or Mortality Presenting problems: low Diagnostic procedures: low [facility] of Present illness Narrative* Lucia Darnell PA-C - 06/09/2024 3:16 PM EDT This note was created using NoteWriter. Subjective Stella Collins is a 33 year old female. Patient is a 33-year-old female who complains of increased episodes of wheezing and cough that she has been experiencing for the past 3 to 4 days. Patient reports no congestion, sinus pressure, ear pain, sore throat or other illness symptoms. Patient denies fever, chills or myalgia. Patient does have asthma and has no history of COPD. Patient does not smoke. Patient has been using her ventilationmedication with no improvement. Patient is requesting a refill of her albuterol nebulizer solution. Cough Associated symptoms include wheezing. Review of Systems Respiratory: Positive for cough and wheezing. All other systems reviewed and are negative. Objective BP 128/82 Pulse (!) 128 Temp 36.9 C (98.4 F) Resp 18 Wt 95.1 kg (209 lb 10.5 oz) LMP 07/15/2020 SpO2 97% BMI 39.61 kg/m Physical Exam Vitals and nursing note reviewed. Constitutional: Appearance: Normal appearance. She is normal weight. HENT: Head: Normocephalic and atraumatic. Right Ear: Tympanic membrane, ear canal and external ear normal. Left Ear: Tympanic membrane, ear canal and external ear normal. Nose: Nose normal. Mouth/Throat: Mouth: Mucous membranes are moist. Pharynx: Oropharynx is clear. Eyes: Extraocular Movements: Extraocular movements intact. Conjunctiva/sclera: Conjunctivae normal. Pupils: Pupils are equal, round, and reactive to light. Cardiovascular: Rate and Rhythm: Normal rate and regular rhythm. Pulses: Normal pulses. Heart sounds: Normal heart sounds. Pulmonary: Effort: Pulmonary effort is normal. Breath sounds: Normal breath sounds. Musculoskeletal: Cervical back: Normal range of motion and neck supple. Skin: General: Skin is warm and dry. Capillary Refill: Capillary refill takes less than 2 seconds. Neurological: General: No focal deficit present. Mental Status: She is alert and oriented to person, place, and time. Psychiatric: Mood and Affect: Mood normal. Behavior: Behavior normal. Thought Content: Thought content normal. Judgment: Judgment normal. Assessment and Plan Physical exam findings as noted above. Patient was provided with prescriptions for prednisone 20 mgand albuterol 0.083% nebulizer solution. Patient was clearly advised to report to the emergency department if she develops worsening shortness of breath or other concerning symptoms. Patient verbalizes clear understanding of the above instructions. CLINICAL IMPRESSION: Acute Asthma Exacerbation; Medication Refill ASSESSMENT/PLAN: 1. Mild intermittent asthma with acute exacerbation - ICD9: 493.92, ICD10: J45.21 - ALBUTEROL SULFATE 2.5 MG/3 ML (0.083 %) SOLUTION FOR NEBULIZATION - PREDNISONE 20 MG TABLET MDM Risk of Complications, Morbidity, and/or Mortality Presenting problems: low Diagnostic procedures: low Management options: cortney Darnell PA-C [facility] NoteHNO ID: [id number] Author: ANTONETTE ROWELL APRN.LYFT DRIVER Service: ? Author Type: Nurse Practitioner Type: Progress Notes Filed: 03/27/2024 13:09 Note Text: Subjective HPI HPI Stella Collins is a 33 year old female who presents today for CC of st. This started 1 day ago. Has tried nothing for relief. Symptoms are worsened by nothing. Risk factors sick exposures. Smoker. Denies possibility of being . Hx of asthma.. .Patient presents with: Sore Throat: ST x 1 day PAST MEDICAL HISTORY Diagnosis Date Anemia WITH Anxiety and depression 09/07/2021 PAST SURGICAL HISTORY Procedure Laterality Date CARPAL TUNNEL 2017 right hand DELIVERY ONLY 2010 , low transverse DELIVERY ONLY 11/06/13 , low transverse DELIVERY ONLY 06/18/2019 RC/S low transverse NEXPLANON INSERTION 12/28/2013 removed TUBAL LIGATION Bilateral 06/18/2019 ALLERGIES Patient has no known allergies. MEDICATIONS predniSONE (DELTASONE) 20 mg tablet Take 2 tablets by mouth once daily for 4 days. Take daily with food. methocarbamol (ROBAXIN) 500 mg tablet Take 1 tablet by mouth every 6 hours as needed (Pain) for up to 3 days. montelukast (SINGULAIR) 10 mg tablet Take 1 tablet by mouth daily at bedtime. fluticasone-salmeterol HFA (ADVAIR HFA) 230-21 mcg/actuation inhaler Inhale 2 Puffs as instructed two times a day. celecoxib (CELEBREX) 200 mg capsule Take 1 capsule by mouth once daily. propranolol (INDERAL) 10 mg tablet Take 10 mg by mouth three times a day as needed. REXULTI 0.5 mg tablet Take 0.5 mg by mouth once daily. hydrOXYzine HCl (ATARAX) 25 mg tablet Take 1 tablet by mouth three times a day as needed for anxiety. venlafaxine ER (EFFEXOR XR) 37.5 mg 24 hr capsule Take 1 capsule by mouth once daily. (Patient taking differently: Take 150 mg by mouth once daily.) pantoprazole DR (PROTONIX) 40 mg tablet Take 1 tablet by mouth once daily. busPIRone (BUSPAR) 10 mg tablet Take 1 tablet by mouth three times daily. (Patient taking differently: Take 15 mg by mouth two times a day.) albuterol HFA (VENTOLIN HFA) 90 mcg/actuation inhaler Inhale 2 Puffs as instructed every 4 hours as needed for wheezing/shortness of breath. ondansetron orally disintegrating (ZOFRAN ODT) 4 mg disintegrating tablet Take 1 tablet by mouth every 8 hours as needed for nausea/vomiting. (Patient not taking: Reported on 03/27/2024) etonogestrel (NEXPLANON) subdermal implant 68 mg 1 [...] History Tobacco Use Smoking status: Every Day Current packs/day: 1.00 Average packs/day: 1 pack/day for 5.0 years (5.0 ttl pk-yrs) Types: Cigarettes Smokeless tobacco: Never Tobacco comments: 1 ppd started at age 18 Vaping Use Vaping status: Never Used Substance Use Topics Alcohol use: No Drug use: No Review of Systems Constitutional: Negative for fever. HENT: Positive for sore throat. Negative for congestion, ear pain and nosebleeds. Respiratory: Negative for cough, shortness of breath and wheezing. Musculoskeletal: Negative for neck pain. Skin: Negative for itching and rash. Objective Blood pressure 128/82, pulse 114, temperature 36.3 ?C (97.3 ?F), temperature source Tympanic, resp. rate 18, weight 95 kg (209 lb 7 oz), last menstrual period 07/15/2020, SpO2 100%. Physical Exam Constitutional: General: She is not in acute distress. Appearance: She is not toxic-appearing or diaphoretic. HENT: Head: Normocephalic and atraumatic. Right Ear: Hearing, tympanic membrane, ear canal and external ear normal. Left Ear: Hearing, tympanic membrane, ear canal and external ear normal. Nose: Nose normal. Mouth/Throat: Lips: [place]. Mouth: Mucous membranes are moist. Pharynx: Uvula midline. Posterior oropharyngeal erythema present. No pharyngeal swelling, oropharyngeal exudate or uvula swelling. Eyes: General: Lids are normal. No scleral icterus. Right eye: No discharge. Left eye: No discharge. Conjunctiva/sclera: Conjunctivae normal. Pupils: Pupils are equal, round, and reactive to light. Neck: Trachea: Trachea normal. Cardiovascular: Rate and Rhythm: Normal rate and regular rhythm. Heart sounds: Normal heart sounds. Pulmonary: Effort: Pulmonary effort is normal. Breath sounds: Normal breath sounds. Musculoskeletal: Cervical back: Normal range of motion and neck supple. Lymphadenopathy: Cervical: No cervical a (more content not included)...[facility] 03-27-2024 History of Present illness Narrative* Antonette Rowell APRN.LYFT DRIVER - 03/27/2024 12:28 PM EST Subjective HPI HPI Stella Collins is a 33 year old female who presents today for CC of st. This started 1 day ago. Has tried nothing for relief. Symptoms are worsened by nothing. Risk factors sick exposures. Smoker. Denies possibility of being . Hx of asthma.. .Patient presents with: Sore Throat: ST x 1 day PAST MEDICAL HISTORY Diagnosis Date Anemia WITH Anxiety and depression 09/07/2021 PAST SURGICAL HISTORY Procedure Laterality Date CARPAL TUNNEL 2017 right hand DELIVERY ONLY 2010 , low transverse DELIVERY ONLY 11/06/13 , low transverse DELIVERY ONLY 06/18/2019 RC/S low transverse NEXPLANON INSERTION 12/28/2013 removed TUBAL LIGATION Bilateral 06/18/2019 ALLERGIES Patient has no known allergies. MEDICATIONS predniSONE (DELTASONE) 20 mg tablet Take 2 tablets by mouth once daily for 4 days. Take daily with food. methocarbamol (ROBAXIN) 500 mg tablet Take 1 tablet by mouth every 6 hours as needed (Pain) for up to 3 days. montelukast (SINGULAIR) 10 mg tablet Take 1 tablet by mouth daily at bedtime. fluticasone-salmeterol HFA (ADVAIR HFA) 230-21 mcg/actuation inhaler Inhale 2 Puffs as instructed two times a day. celecoxib (CELEBREX) 200 mg capsule Take 1 capsule by mouth once daily. propranolol (INDERAL) 10 mg tablet Take 10 mg by mouth three times a day as needed. REXULTI 0.5 mg tablet Take 0.5 mg by mouth once daily. hydrOXYzine HCl (ATARAX) 25 mg tablet Take 1 tablet by mouth three times a day as needed for anxiety. venlafaxine ER (EFFEXOR XR) 37.5 mg 24 hr capsule Take 1 capsule by mouth once daily. (Patient taking differently: Take 150 mg by mouth once daily.) pantoprazole DR (PROTONIX) 40 mg tablet Take 1 tablet by mouth once daily. busPIRone (BUSPAR) 10 mg tablet Take 1 tablet by mouth three times daily. (Patient taking differently: Take 15 mg by mouth two times a day.) albuterol HFA (VENTOLIN HFA) 90 mcg/actuation inhaler Inhale 2 Puffs as instructed every 4 hours asneeded for wheezing/shortness of breath. ondansetron orally disintegrating (ZOFRAN ODT) 4 mg disintegrating tablet Take 1 tablet by mouth every 8 hours as needed for nausea/vomiting. (Patient not taking: Reported on 03/27/2024) etonogestrel (NEXPLANON) subdermal implant 68 mg 1 [...] History Tobacco Use Smoking status: Every Day Current packs/day: 1.00 Average packs/day: 1 pack/day for 5.0 years (5.0 ttl pk-yrs) Types: Cigarettes Smokeless tobacco: Never Tobacco comments: 1 ppd started at age 18 Vaping Use Vaping status: Never Used Substance Use Topics Alcohol use: No Drug use: No Review of Systems Constitutional: Negative for fever. HENT: Positive for sore throat. Negative for congestion, ear pain and nosebleeds. Respiratory: Negative for cough, shortness of breath and wheezing. Musculoskeletal: Negative for neck pain. Skin: Negative for itching and rash. Objective Blood pressure 128/82, pulse 114, temperature 36.3 C (97.3 F), temperature source Tympanic, resp. rate 18, weight 95 kg (209 lb 7 oz), last menstrual period 07/15/2020, SpO2 100%. Physical Exam Constitutional: General: She is not in acute distress. Appearance: She is not toxic-appearing or diaphoretic. HENT: Head: Normocephalic and atraumatic. Right Ear: Hearing, tympanic membrane, ear canal and external ear normal. Left Ear: Hearing, tympanic membrane, ear canal and external ear normal. Nose: Nose normal. Mouth/Throat: Lips: [place]. Mouth: Mucous membranes are moist. Pharynx: Uvula midline. Posterior oropharyngeal erythema present. No pharyngeal swelling, oropharyngeal exudate or uvula swelling. Eyes: General: Lids are normal. No scleral icterus. Right eye: No discharge. Left eye: No discharge. Conjunctiva/sclera: Conjunctivae normal. Pupils: Pupils are equal, round, and reactive to light. Neck: Trachea: Trachea normal. Cardiovascular: Rate and Rhythm: Normal rate and regular rhythm. Heart sounds: Normal heart sounds. Pulmonary: Effort: Pulmonary effort is normal. Breath sounds: Normal breath sounds. Musculoskeletal: Cervical back: Normal range of motion and neck supple. Lymphadenopathy: Cervical: No cervical adenopathy. Right cervical: No superficial cervical adenopathy. Left cervical: No superficial cervical adenopathy. Skin: Findings: No rash. Neurological: Mental Status: She is alert and oriented to person, place, and time. ASSESSMENT/PLAN: 1. Sore throat - ICD9: 462, ICD10: J02.9 - suspect viral - Group A strep molecular testing negative - Discussed supportive care treatment with fluids, rest and analgesia. - The patient should follow up in 3-5 days if symptoms persist or worsen - STREP A MOLECULAR (POC) Antonette Rowell APRN.ANKIT [facility] Instructions* Patient Instructions* Ruben Jain PA - 03/26/2024 2:33 PM EST You may take methocarbamol (muscle relaxer) 4 times daily as needed for muscle spasming/pain. Do not drive while taking this medication as it may cause drowsiness. Take prednisone 2 tabs daily for 4 days as prescribed. Do not take Aleve, Motrin, ibuprofen or other NSAIDs while taking this medication. You may take Tylenol with it. Ice the shoulder 3 times daily for no more than 20 minutes at a time. Follow-up with PCP next week if symptoms are not improved. [facility] History of Present illness Narrative* Cleve Pritchett RT(R) - 03/26/2024 2:30 PM EST Radiology Service Progress Note PATIENT NAME: Stella Collins DATE OF SERVICE: March 26, 2024 TIME: 2:21 PM PATIENT IDENTITY VERIFICATION COMPLETED USING TWO (2) IDENTIFIERS: Name and Date of confirmedby patient verbally. FALL SCREENING: Has the patient had 2 falls in the last year or 1 fall with injury or currently using an Ambulatory Assistive Device (Walker, Cane, Wheelchair, Crutches, etc.)? No PATIENT GENDER DATA: Assigned female at . status: : No status:NO. PATIENT RELEVANT IMPLANT DATA REVIEWED: Not Applicable PATIENT PRESENTS WITH AN IMPLANTABLE OR ATTACHED SENIOR ORACLE PL SQL DEVELOPER: No RADIOLOGY DEPARTMENT: General X-ray: Exam(s) Completed: Upper Extremity X- Ray(s): Shoulder, AP / TRUE AP / AXILLARY left PERIPHERAL IV DATA: Not applicable SIGNED BY: RT Víctor(R) March 26, 2024 2:21 PM documented in [facility]25 NoteHNO ID: [id number] Author: CLEVE PRITCHETT RT(R) Service: Radiology Author Type: Technologist Type: Progress Notes Filed: 03/26/2024 14:32 Note Text: Radiology Service Progress Note PATIENT NAME: Stella Collins DATE OF SERVICE: March 26, 2024 TIME: 2:21 PM PATIENT IDENTITY VERIFICATION COMPLETED USING TWO (2) IDENTIFIERS: Name and Date of confirmed by patient verbally. FALL SCREENING: Has the patient had 2 falls in the last year or 1 fall with injury or currently using an Ambulatory Assistive Device (Walker, Cane, Wheelchair, Crutches, etc.)? No PATIENT GENDER DATA: Assigned female at . status: : No status: NO. PATIENT RELEVANT IMPLANT DATA REVIEWED: Not Applicable PATIENT PRESENTS WITH AN IMPLANTABLE OR ATTACHED SENIOR ORACLE PL SQL DEVELOPER: No RADIOLOGY DEPARTMENT: General X-ray: Exam(s) Completed: Upper Extremity X-Ray(s): Shoulder, AP / TRUE AP / AXILLARY left PERIPHERAL IV DATA: Not applicable SIGNED BY: RT Víctor(R) March 26, 2024 2:21 [facility]01-13-2025 NoteHNO ID: [id number] Author: RUBEN JAIN PA Service: ? Author Type: Physician Bull Gang Worker Type: Progress Notes Filed: 03/26/2024 14:40 Note Text: This note was created using NoteWriter. Subjective Stella Collins is a 33 year old female. HPI 33-year-old female presents for left shoulder pain. Patient has had left shoulder pain for several years that flares up from time to time. She states that she shoveled snow the other day and left shoulder pain got worse. Pain worse with movement. She has tried ibuprofen and Celebrex with minimal improvement. No numbness or tingling of the arm. No neck pain. No history of surgery to the shoulder in the past. She is right-hand dominant. PAST MEDICAL HISTORY Diagnosis Date Anemia WITH Anxiety and depression 09/07/2021 PAST SURGICAL HISTORY Procedure Laterality Date CARPAL TUNNEL 2017 right hand DELIVERY ONLY 2010 , low transverse DELIVERY ONLY 11/06/13 , low transverse DELIVERY ONLY 06/18/2019 RC/S low transverse NEXPLANON INSERTION 12/28/2013 removed TUBAL LIGATION Bilateral 06/18/2019 ALLERGIES Patient has no known allergies. MEDICATIONS albuterol HFA (VENTOLIN HFA) 90 mcg/actuation inhaler Inhale 2 Puffs as instructed every 4 hours as needed for wheezing/shortness of breath. montelukast (SINGULAIR) 10 mg tablet Take 1 tablet by mouth daily at bedtime. fluticasone-salmeterol HFA (ADVAIR HFA) 230-21 mcg/actuation inhaler Inhale 2 Puffs as instructed two times a day. celecoxib (CELEBREX) 200 mg capsule Take 1 capsule by mouth once daily. propranolol (INDERAL) 10 mg tablet Take 10 mg by mouth three times a day as needed. REXULTI 0.5 mg tablet Take 0.5 mg by mouth once daily. hydrOXYzine HCl (ATARAX) 25 mg tablet Take 1 tablet by mouth three times a day as needed for anxiety. venlafaxine ER (EFFEXOR XR) 37.5 mg 24 hr capsule Take 1 capsule by mouth once daily. (Patient taking differently: Take 150 mg by mouth once daily.) pantoprazole DR (PROTONIX) 40 mg tablet Take 1 tablet by mouth once daily. busPIRone (BUSPAR) 10 mg tablet Take 1 tablet by mouth three times daily. (Patient taking differently: Take 15 mg by mouth two times a day.) etonogestrel (NEXPLANON) subdermal implant 68 mg 1 Each by SUBDERMAL route as directed. ondansetron orally disintegrating (ZOFRAN ODT) 4 mg disintegrating tablet Take 1 tablet by mouth every 8 hours as needed for nausea/vomiting. (Patient not taking: Reported on 01/17/2024) FAMILY HISTORY Problem Relation Age of Onset [...] History Tobacco Use Smoking status: Every Day Current packs/day: 1.00 Average packs/day: 1 pack/day for 5.0 years (5.0 ttl pk-yrs) Types: Cigarettes Smokeless tobacco: Never Tobacco comments: 1 ppd started at age 18 Vaping Use Vaping status: Never Used Substance Use Topics Alcohol use: No Drug use: No Review of Systems Constitutional: Negative for chills and fever. HENT: Negative for congestion, ear pain and sore throat. Respiratory: Negative for cough and shortness of breath. Cardiovascular: Negative for chest pain. Gastrointestinal: Negative for diarrhea and vomiting. Musculoskeletal: Positive for arthralgias (L shoulder pain). Objective BP 140/92 Pulse 120 Temp 36.6 ?C (97.8 ?F) Resp 16 Wt 94.9 kg (209 lb 3.5 oz) LMP 07/15/2020 SpO2 99% BMI 39.53 kg/m? Physical Exam Vitals and nursing note reviewed. Constitutional: General: She is not in acute distress. Appearance: Normal appearance. She is not toxic-appearing. HENT: Nose: Nose normal. Mouth/Throat: Mouth: Mucous membranes are moist. Eyes: Conjunctiva/sclera: Conjunctivae normal. Cardiovascular: Rate and Rhythm: Normal rate and regular rhythm. Pulmonary: Effort: Pulmonary effort is normal. Breath sounds: Normal breath sounds. Musculoskeletal: Left shoulder: Tenderness and bony tenderness present. No swelling. Decreased range of motion. Normal strength. Normal pulse. Comments: Forward flexion of left shoulder to 90 degrees. Abduction to 90 degrees. Tenderness over AC joint and left trapezius. Normal sensation left upper extremity. Normal strength. Skin: General: Skin is warm and dry. Neurological: Mental Status: She is alert. Assessment and Plan ASSESSMENT/PLAN: 1. Acute pain of left shoulder - ICD9: 719.41, ICD10: M25.512 - XR SHOULDER GENERAL 3V OR MORE AP/TRUE AP/OTHER LEFT-reveals no radiographic evidence of acute osseous injury. On 1 (more content not included)...[facility]01-[facility] History of Present illness Narrative* Ruben Jain PA - 03/26/2024 2:19 PM EST This note was created using Awesomiriter. Subjective Stella Collins is a 33 year old female. HPI 33-year-old female presents for left shoulder pain. Patient has had left shoulder pain for several years that flares up from time to time. She states that she shoveled snow the other day and leftshoulder pain got worse. Pain worse with movement. She has tried ibuprofen and Celebrex with minimal improvement. No numbness or tingling of the arm. No neck pain. No history of surgery to the shoulder in the past. She is right-hand dominant. PAST MEDICAL HISTORY Diagnosis Date Anemia WITH Anxiety and depression 09/07/2021 PAST SURGICAL HISTORY Procedure Laterality Date CARPAL TUNNEL 2017 right hand DELIVERY ONLY 2010 , low transverse DELIVERY ONLY 11/06/13 , low transverse DELIVERY ONLY 06/18/2019 RC/S low transverse NEXPLANON INSERTION 12/28/2013 removed TUBAL LIGATION Bilateral 06/18/2019 ALLERGIES Patient has no known allergies. MEDICATIONS albuterol HFA (VENTOLIN HFA) 90 mcg/actuation inhaler Inhale 2 Puffs as instructed every 4 hours asneeded for wheezing/shortness of breath. montelukast (SINGULAIR) 10 mg tablet Take 1 tablet by mouth daily at bedtime. fluticasone-salmeterol HFA (ADVAIR HFA) 230-21 mcg/actuation inhaler Inhale 2 Puffs as instructed two times a day. celecoxib (CELEBREX) 200 mg capsule Take 1 capsule by mouth once daily. propranolol (INDERAL) 10 mg tablet Take 10 mg by mouth three times a day as needed. REXULTI 0.5 mg tablet Take 0.5 mg by mouth once daily. hydrOXYzine HCl (ATARAX) 25 mg tablet Take 1 tablet by mouth three times a day as needed for anxiety. venlafaxine ER (EFFEXOR XR) 37.5 mg 24 hr capsule Take 1 capsule by mouth once daily. (Patient taking differently: Take 150 mg by mouth once daily.) pantoprazole DR (PROTONIX) 40 mg tablet Take 1 tablet by mouth once daily. busPIRone (BUSPAR) 10 mg tablet Take 1 tablet by mouth three times daily. (Patient taking differently: Take 15 mg by mouth two times a day.) etonogestrel (NEXPLANON) subdermal implant 68 mg 1 Each by SUBDERMAL route as directed. ondansetron orally disintegrating (ZOFRAN ODT) 4 mg disintegrating tablet Take 1 tablet by mouth every 8 hours as needed for nausea/vomiting. (Patient not taking: Reported on 01/17/2024) FAMILY HISTORY Problem Relation Age of Onset [...] History Tobacco Use Smoking status: Every Day Current packs/day: 1.00 Average packs/day: 1 pack/day for 5.0 years (5.0 ttl pk-yrs) Types: Cigarettes Smokeless tobacco: Never Tobacco comments: 1 ppd started at age 18 Vaping Use Vaping status: Never Used Substance Use Topics Alcohol use: No Drug use: No Review of Systems Constitutional: Negative for chills and fever. HENT: Negative for congestion, ear pain and sore throat. Respiratory: Negative for cough and shortness of breath. Cardiovascular: Negative for chest pain. Gastrointestinal: Negative for diarrhea and vomiting. Musculoskeletal: Positive for arthralgias (L shoulder pain). Objective BP 140/92 Pulse 120 Temp 36.6 C (97.8 F) Resp 16 Wt 94.9 kg (209 lb 3.5 oz) LMP 07/15/2020 SpO2 99% BMI 39.53 kg/m Physical Exam Vitals and nursing note reviewed. Constitutional: General: She is not in acute distress. Appearance: Normal appearance. She is not toxic-appearing. HENT: Nose: Nose normal. Mouth/Throat: Mouth: Mucous membranes are moist. Eyes: Conjunctiva/sclera: Conjunctivae normal. Cardiovascular: Rate and Rhythm: Normal rate and regular rhythm. Pulmonary: Effort: Pulmonary effort is normal. Breath sounds: Normal breath sounds. Musculoskeletal: Left shoulder: Tenderness and bony tenderness present. No swelling. Decreased range of motion. Normal strength. Normal pulse. Comments: Forward flexion of left shoulder to 90 degrees. Abduction to 90 degrees. Tenderness over AC joint and left trapezius. Normal sensation left upper extremity. Normal strength. Skin: General: Skin is warm and dry. Neurological: Mental Status: She is alert. Assessment and Plan ASSESSMENT/PLAN: 1. Acute pain of left shoulder - ICD9: 719.41, ICD10: M25.512 - XR SHOULDER GENERAL 3V OR MORE AP/TRUE AP/OTHER LEFT-reveals no radiographic evidence of acute osseous injury. On 1 view only there is 2.5 cm linear radiopaque structure projecting in soft tissues medial to the humerus. (Patient has Nexplanon implant in this arm) -Recommend rest, ice, elevation. -Rx prednisone, Rx Robaxin. Discussed no driving while taking Robaxin as it may cause drowsiness -Patient will follow-up with PCP for persistent symptoms, discussed orthopedic consult, but she would like to see if these medications help her first. Diagnosis and treatment plan were discussed and questions were answered to the patient's satisfaction. Pt acknowledged understanding of concepts and follow up plan. Specific signs and symptoms that would indicate the need for higher level of care were discussed in detail warranting prompt ER evaluation. CIELO Josue documented in this [facility]11-05-2024 History of Present illness Narrative* Melia Verma RT(R) - 01/17/2024 5:00 PM EST Radiology Service Progress Note PATIENT NAME: Stella Collins DATE OF SERVICE: January 17, 2024 TIME: 5:05 PM PATIENT IDENTITY VERIFICATION COMPLETED USING TWO (2) IDENTIFIERS: Name and Date of confirmedby patient verbally. FALL SCREENING: Has the patient had 2 falls in the last year or 1 fall with injury or currently using an Ambulatory Assistive Device (Walker, Cane, Wheelchair, Crutches, etc.)? No PATIENT GENDER DATA: Female. status: : No status: NO. PATIENT RELEVANT IMPLANT DATA REVIEWED: Yes PATIENT PRESENTS WITH AN IMPLANTABLE OR ATTACHED SENIOR ORACLE PL SQL DEVELOPER: No RADIOLOGY DEPARTMENT: Ultrasound PERIPHERAL IV DATA: Not applicable SIGNED BY: Melia Verma RDMS, RVT January 17, 2024 5:05 PM [facility] NoteHNO ID: [id number] Author: MELIA VERMA RT(R) Service: ? Author Type: Technologist Type: Progress Notes Filed: 01/17/2024 17:44 Note Text: Radiology Service Progress Note PATIENT NAME: Stella Collins DATE OF SERVICE: January 17, 2024 TIME: 5:05 PM PATIENT IDENTITY VERIFICATION COMPLETED USING TWO (2) IDENTIFIERS: Name and Date of confirmed by patient verbally. FALL SCREENING: Has the patient had 2 falls in the last year or 1 fall with injury or currently using an Ambulatory Assistive Device (Walker, Cane, Wheelchair, Crutches, etc.)? No PATIENT GENDER DATA: Female. status: : No status: NO. PATIENT RELEVANT IMPLANT DATA REVIEWED: Yes PATIENT PRESENTS WITH AN IMPLANTABLE OR ATTACHED SENIOR ORACLE PL SQL DEVELOPER: No RADIOLOGY DEPARTMENT: Ultrasound PERIPHERAL IV DATA: Not applicable SIGNED BY: Melia Verma RDMS, RVT January 17, 2024 5:05 [facility]11-05-2024 History of Present illness Narrative* Tom Morocho RT(R) - 01/17/2024 12:30 PM EST Radiology Service Progress Note PATIENT NAME: Stella Collins DATE OF SERVICE: January 17, 2024 TIME: 12:46 PM PATIENT IDENTITY VERIFICATION COMPLETED USING TWO (2) IDENTIFIERS: Name and Date of confirmedby patient verbally. FALL SCREENING: Has the patient had 2 falls in the last year or 1 fall with injury or currently using an Ambulatory Assistive Device (Walker, Cane, Wheelchair, Crutches, etc.)? No PATIENT GENDER DATA: Female. status: : No status: NO. PATIENT RELEVANT IMPLANT DATA REVIEWED: Yes PATIENT PRESENTS WITH AN IMPLANTABLE OR ATTACHED SENIOR ORACLE PL SQL DEVELOPER: No RADIOLOGY DEPARTMENT: General X-ray: Exam(s) Completed: Chest X-Ray PERIPHERAL IV DATA: Not applicable SIGNED BY: ANDREINA Ng) January 17, 2024 12:46 PM documented in this [facility]St[facility] Miscellaneous Notes* Result Encounter Note - Abeba Chase APRN.CNS - 01/17/2024 12:30 PM EST No concerning findings on chest x-ray documented in this encounterSt. [facility]24 NoteHNO ID: [id number] Author: TOM MOROCHO RT(R) Service: Radiology Author Type: Technologist Type: Progress Notes Filed: 01/17/2024 12:56 Note Text: Radiology Service Progress Note PATIENT NAME: Stella Collins DATE OF SERVICE: January 17, 2024 TIME: 12:46 PM PATIENT IDENTITY VERIFICATION COMPLETED USING TWO (2) IDENTIFIERS: Name and Date of confirmed by patient verbally. FALL SCREENING: Has the patient had 2 falls in the last year or 1 fall with injury or currently using an Ambulatory Assistive Device (Walker, Cane, Wheelchair, Crutches, etc.)? No PATIENT GENDER DATA: Female. status: : No status: NO. PATIENT RELEVANT IMPLANT DATA REVIEWED: Yes PATIENT PRESENTS WITH AN IMPLANTABLE OR ATTACHED SENIOR ORACLE PL SQL DEVELOPER: No RADIOLOGY DEPARTMENT: General X-ray: Exam(s) Completed: Chest X-Ray PERIPHERAL IV DATA: Not applicable SIGNED BY: RT Hernandez(R) January 17, 2024 12:46 [facility]11-05-2024 Progress note* Result Encounter Note - Abeba Chase APRN.CNS - 01/17/2024 12:30 PM EST No concerning findings on chest x-ray [facility]11-[facility]2024 NoteHNO ID: [id number] Author: ABEBA CHASE APRN.CNS Service: ? Author Type: Nurse Specialist Type: Progress Notes Filed: 01/17/2024 13:02 Note Text: SUBJECTIVE: Pneumococcal Vaccine(1 of 2 - PCV) Never done HPV Vaccine(3 - 3-dose SCDM series) due on 10/04/2022 Cervical Cancer Screening due on 03/18/2023 Influenza Vaccine(1) due on 11/13/2023 Covid-19 Vaccine( season) due on 11/13/2023 SARIAH Collins is a 33 year old female. PMH significant for ACTIVE PROBLEM LIST Obesity, Class Iii, Bmi 40-49.9 (Morbid Obesity) (Hcc) Pain in Right Knee Chronic Right-Sided Low Back Pain With Right-Sided Sciatica Carpal Tunnel Syndrome of Right Wrist Anxiety and Depression PCP: Isma Almanza MD Presents today regarding left arm swelling and left-sided chest wall swelling which started last Tuesday. She is status post left carpal tunnel surgery with Dr. Alberto [facility] 2 weeks ago. She presented to urgent care at [facility] 01/14/2024.Abeba Chase, AZAM.EQUIPMENT OPERATOR INTERMODAL YARD Note excerpted: Patient presents to express care triage with left arm swelling for 2-3 days. She had carpal tunnel release two weeks ago and returned to work at the [employer]. Her hand started to swelling and she called her ortho doctor who told her to cut hours at work and elevate. She then noticed the past 2 days the swelling is going up past her elbow. Discussed with patient she may need an US to rule out a clot in the arm. Does not appear infected. Likely peripheral edema in the hand from gravity and using the arm more but shouldn't be up past her elbow. Recommended Er eval. Patient will go to [facility] ED. She reports she went to [facility] ER this date. Ddimer completed and negative, o US completed. No notes at the time of her visit today, will obtain. Review of outside records show that she was seen at [facility] on January 15, 2024 for left arm pain and swelling. Noted she had carpal tunnel surgery 2 weeks prior. D-dimer was negative. She had left arm pain and swelling due to noncompliance with elevation of her arm. She was advised to elevate and ice. No concerning findings on exam. Discharged to home and advised to follow up with Dr. Alberto. Today notes left upper arm pain and swelling, left upper chest wall swelling. No pitting edema, no decrease in ROM, no red streaking, warmth or cords. Breathing easily on room air, needs refill of asthma medications. Surgical incision is healing well with no redness, warmth or drainage. No report of headache, chest pain, palpitations, dyspnea, peripheral edema, orthopnea, fatigue, or PND.Last 3 Encounter BP Readings: Date: BP: 01/17/2024 134/90 12/14/2023 112/70 10/14/2023 116/72 Review of Systems Constitutional: Negative. HENT: Negative. Musculoskeletal: Positive for arthralgias. Objective BP 134/90 Pulse (!) 125 Resp 16 Wt 93.9 kg (207 lb 0.2 oz) LMP 07/15/2020 BMI 39.11 kg/m? Physical Exam Vitals and nursing note reviewed. Constitutional: Appearance: Normal appearance. HENT: Head: Normocephalic and atraumatic. Mouth/Throat: Lips: [place] 7. Eyes: Conjunctiva/sclera: Conjunctivae normal. Cardiovascular: Rate and Rhythm: Normal rate and regular rhythm. Heart sounds: Normal heart sounds. Pulmonary: Effort: Pulmonary effort is normal. Breath sounds: Normal breath sounds. Musculoskeletal: Comments: some swelling at bicep level/upper arm, lower arm without swelling, well healed incision site, some swelling at left side chest wall, diffuse, no crepitus, normal breath sounds Skin: General: Skin is warm and dry. Neurological: General: No focal deficit present. Mental Status: She is alert and oriented to person, place, and time. ALLERGIES No Known Allergies Medication celecoxib (CELEBREX) 200 mg capsule Take 1 capsule by mouth once daily. propranolol (INDERAL) 10 mg tablet Take 10 mg by mouth three times a day as needed. REXULTI 0.5 mg tablet Take 0.5 mg by mouth once daily. hydrOXYzine HCl (ATARAX) 25 mg tablet Take 1 tablet by mouth three times a day as needed for anxiety. venlafaxine ER (EFFEXOR XR) 37.5 mg 24 hr capsule Take 1 capsule by mouth once daily. (Patient taking differently: Take 75 mg by mouth once daily.) pantoprazole DR (PROTONIX) 40 mg tablet Take 1 tablet by mouth once daily. busPIRone (BUSPAR) 10 mg tablet Take 1 tablet by mouth three times daily. (Patient taking differently: Take 15 mg by mouth two times a day.) etonogestrel (NEXPLANON) subdermal implant 68 mg 1 Each by SUBDERMAL route as directed. albuterol HFA (VENTOLIN HFA) 90 mcg/actuation inhaler Inhale 2 Puffs as instructed every 4 hours as needed for wheezing/shortness of breath. montelukast (SINGULAIR) 10 mg tablet Take 1 tablet by mouth daily at bedtime. fluticasone-salmeterol HFA (ADVAIR HFA) 230-21 mcg/actuation inhaler Inhale 2 Puffs as instructed two times a day. ondansetron orally disintegrating (ZOFRAN ODT) 4 mg d (more content not included)...[facility]11-05-2024 History of Present illness Narrative* Abeba Chase APRN.EQUIPMENT OPERATOR INTERMODAL YARD - 01/17/2024 12:08 PM EST SUBJECTIVE: Pneumococcal Vaccine(1 of 2 - PCV) Never done HPV Vaccine(3 - 3-dose SCDM series) due on 10/04/2022 Cervical Cancer Screening due on 03/18/2023 Influenza Vaccine(1) due on 11/13/2023 Covid-19 Vaccine( season) due on 11/13/2023 HPI Stella Collins is a 33 year old female. PMH significant for ACTIVE PROBLEM LIST Obesity, Class Iii, Bmi 40-49.9 (Morbid Obesity) (Hcc) Pain in Right Knee Chronic Right-Sided Low Back Pain With Right-Sided Sciatica Carpal Tunnel Syndrome of Right Wrist Anxiety and Depression PCP: Isma Almanza MD Presents today regarding left arm swelling and left-sided chest wall swelling which started last Tuesday. She is status post left carpal tunnel surgery with Dr. Alberto [facility] 2 weeks ago. She presented to urgent care at [facility] 01/14/2024.Abeba Chase APRN.EQUIPMENT OPERATOR INTERMODAL YARD Note excerpted: Patient presents to express care triage with left arm swelling for 2-3 days. She had carpal tunnel release two weeks ago and returned to work at the [employer]. Her hand started to swelling and she called her ortho doctor who told her to cut hours at work and elevate. She then noticed the past 2 days the swelling is going up past her elbow. Discussed with patient she may need an US to rule out a clot in the arm. Does not appear infected. Likely peripheral edema in the hand from gravity and using the arm more but shouldn't be up past her elbow. Recommended Er eval. Patient will go to [facility] ED. She reports she went to [facility] ER this date. Ddimer completed and negative, o US completed. No notes at the time of her visit today, will obtain. Review of outside records show that she was seen at [facility] on January 15, 2024 for left arm pain and swelling. Noted she had carpal tunnel surgery 2 weeks prior. D-dimer was negative. She had left arm pain and swelling due to noncompliance with elevation of her arm. She was advised to elevate and ice. No concerning findings on exam. Discharged to home and advised to follow up with Dr. Alberto. Today notes left upper arm pain and swelling, left upper chest wall swelling. No pitting edema, no decrease in ROM, no red streaking, warmth or cords. Breathing easily on room air, needs refill of asthma medications. Surgical incision is healing well with no redness, warmth or drainage. No report of headache, chest pain, palpitations, dyspnea, peripheral edema, orthopnea, fatigue, or PND.Last 3 Encounter BP Readings: Date: BP: 01/17/2024 134/90 12/14/2023 112/70 10/14/2023 116/72 Review of Systems Constitutional: Negative. HENT: Negative. Musculoskeletal: Positive for arthralgias. Objective BP 134/90 Pulse (!) 125 Resp 16 Wt 93.9 kg (207 lb 0.2 oz) LMP 07/15/2020 BMI 39.11 kg/m Physical Exam Vitals and nursing note reviewed. Constitutional: Appearance: Normal appearance. HENT: Head: Normocephalic and atraumatic. Mouth/Throat: Lips: [place] 7. Eyes: Conjunctiva/sclera: Conjunctivae normal. Cardiovascular: Rate and Rhythm: Normal rate and regular rhythm. Heart sounds: Normal heart sounds. Pulmonary: Effort: Pulmonary effort is normal. Breath sounds: Normal breath sounds. Musculoskeletal: Comments: some swelling at bicep level/upper arm, lower arm without swelling, well healed incision site, some swelling at left side chest wall, diffuse, no crepitus, normal breath sounds Skin: General: Skin is warm and dry. Neurological: General: No focal deficit present. Mental Status: She is alert and oriented to person, place, and time. ALLERGIES No Known Allergies Medication celecoxib (CELEBREX) 200 mg capsule Take 1 capsule by mouth once daily. propranolol (INDERAL) 10 mg tablet Take 10 mg by mouth three times a day as needed. REXULTI 0.5 mg tablet Take 0.5 mg by mouth once daily. hydrOXYzine HCl (ATARAX) 25 mg tablet Take 1 tablet by mouth three times a day as needed for anxiety. venlafaxine ER (EFFEXOR XR) 37.5 mg 24 hr capsule Take 1 capsule by mouth once daily. (Patient taking differently: Take 75 mg by mouth once daily.) pantoprazole DR (PROTONIX) 40 mg tablet Take 1 tablet by mouth once daily. busPIRone (BUSPAR) 10 mg tablet Take 1 tablet by mouth three times daily. (Patient taking differently: Take 15 mg by mouth two times a day.) etonogestrel (NEXPLANON) subdermal implant 68 mg 1 Each by SUBDERMAL route as directed. albuterol HFA (VENTOLIN HFA) 90 mcg/actuation inhaler Inhale 2 Puffs as instructed every 4 hours asneeded for wheezing/shortness of breath. montelukast (SINGULAIR) 10 mg tablet Take 1 tablet by mouth daily at bedtime. fluticasone-salmeterol HFA (ADVAIR HFA) 230-21 mcg/actuation inhaler Inhale 2 Puffs as instructed two times a day. ondansetron orally disintegrating (ZOFRAN ODT) 4 mg disintegrating tablet Take 1 tablet by mouth every 8 hours as needed for nausea/vomiting. (Patient not taking: Reported on 01/17/2024) PAST MEDICAL HISTORY Diagnosis Date Anemia WITH Anxiety and depression 09/07/2021 Social History Tobacco Use Smoking status: Every Day Current packs/day: 1.00 Average packs/day: 1 pack/day for 5.0 years (5.0 ttl pk-yrs) Types: Cigarettes Smokeless tobacco: Never Tobacco comments: 1 ppd started at age 18 Vaping Use Vaping status: Never Used Substance Use Topics Alcohol use: No Drug use: No ASSESSMENT/PLAN: 1. Left arm swelling - ICD9: 729.81, ICD10: M79.89 (primary diagnosis) - US DVT UPPER LEFT - XR CHEST 2V FRONTAL/LAT 2. SOB (shortness of breath) - ICD9: 786.05, ICD10: R06.02 - XR CHEST 2V FRONTAL/LAT 3. History of carpal tunnel surgery of left wrist - ICD9: V15.89, ICD10: Z98.890 - XR CHEST 2V FRONTAL/LAT 4. Cough - ICD9: 786.2, ICD10: R05.9 - XR CHEST 2V FRONTAL/LAT - ALBUTEROL SULFATE HFA 90 MCG/ACTUATION AEROSOL INHALER - FLUTICASONE PROPIONATE 230 MCG-SALMETEROL 21 MCG/ACTUATION HFA INHALER 5. Shortness of breath - ICD9: 786.05, ICD10: R06.02 - XR CHEST 2V FRONTAL/LAT - ALBUTEROL SULFATE HFA 90 MCG/ACTUATION AEROSOL INHALER - FLUTICASONE PROPIONATE 230 MCG-SALMETEROL 21 MCG/ACTUATION HFA INHALER 6. Soft tissue swelling of chest wall - ICD9: 786.6, ICD10: R22.2 - XR CHEST 2V FRONTAL/LAT Left upper arm pain and left-sided chest wall and axilla near shoulder. She has mild swelling nonpitting. She is status post surgery, will check for DVT. CXR due to recent URI seen at [facility] 01/12/2024 treated with prednisone. If negative findings today endorse continued elevation and icing. She should have a sooner follow up appt with surgeon if any further concerns regarding post operative status. Abeba Chase APRN.CNS Medical Decision Making: Problems: Low: Acute, uncomplicated illness or injury Data: Unique test(s) ordered: 2 Risk: Moderate: Drug management Medical Decision Making Level: 3 - Low [facility] NoteHNO ID: [id number] Author: TALON ESPINOZA PA-C Service: ? Author Type: Physician Bull Gang Worker Type: Progress Notes Filed: 01/14/2024 14:53 Note Text: Patient presents to express care triage with left arm swelling for 2-3 days. She had carpal tunnel release two weeks ago and returned to work at the [employer]. Her hand started to swelling and she called her ortho doctor who told her to cut hours at work and elevate. She then noticed the past 2 days the swelling is going up past her elbow. Discussed with patient she may need an US to rule out a clot in the arm. Does not appear infected. Likely peripheral edema in the hand from gravity and using the arm more but shouldn't be up past her elbow. Recommended Er eval. Patient will go to [facility] ED.[facility] 01-14-2024 History of Present illness Narrative* Talon Espinoza PA-C - 01/14/2024 2:49 PM EDT Patient presents to express care triage with left arm swelling for 2-3 days. She had carpal tunnel release two weeks ago and returned to work at the [employer]. Her hand started to swelling and she called her ortho doctor who told her to cut hours at work and elevate. She then noticed the past 2days the swelling is going up past her elbow. Discussed with patient she may need an US to rule outa clot in the arm. Does not appear infected. Likely peripheral edema in the hand from gravity and using the arm more but shouldn't be up past her elbow. Recommended Er eval. Patient will go to [facility] ED. documented in this encounterSt[facility] Medical Records Department [address] [place] [address] History Physical Exam 12/28/23 0824 MR#: [id number] Acct: [id number] Name: STELLA COLLINS Rep #: [id number] : 1990 33 From: Karan Alberto MD PCP: Dr. Isma Almanza MD Status:[facility] Location: [place] [address] HPI - General HPI Narrative STELLA COLLINS, is a 33 F who presents for left endoscopic carpal tunnel release. No changes to history and physical exam. Patient counseled on the pros cons risk benefits risks alternatives benefits discussed as well as postoperative recovery narcotic counseling. Typically do not give narcotics postoperatively for this. No changes to history and physical exam patient wished to continue left wrist marked they understood no further questions or concerns. MR#: [id number] Acct: [id number] Name: STELLA COLLINS Rep #: [id number] : 1990 Provider: Dr. Karan Alberto MD Age/Sex: 33/F [place] [facility] [place] Status: Signed Intake Vital Signs 09/21/2409:09 Height 5 ft BP 137/90 H Blood Pressure Location Rt brachial Position Sitting Pulse 111 H Pulse Source Monitor Intake Visit Reasons: LEFT WRIST Accompanied by: Self Is patient in pain?: No Allergies No Known Drug Allergies Allergy (Verified 12/05/23 10:41) Other Medications ???Medication ???Instructions ???Recorded ???Confirmed ???Type etonogestrel 68 mg subdermal 1 implant subdermal ONCE 07/20/21 12/05/23 History implant (Nexplanon) sucralfate 1 gram tablet (Carafate) 1 g PO BID #60 tabs 06/10/23 12/05/23 Rx omeprazole 40 mg capsule,delayed 40 mg PO DAILY #60 caps 06/27/23 12/05/23 Rx release venlafaxine 75 mg capsule,extended 75 mg PO DAILY #90 caps 08/11/23 12/05/23 Rx release 24 hr propranolol 10 mg tablet 10 mg PO TID PRN anxiety #90 tabs 09/08/23 12/05/23 Rx brexpiprazole 1 mg tablet 1 mg PO DAILY #90 tabs 09/22/23 12/05/23 Rx buspirone 15 mg tablet 15 mg PO TID #270 tabs 09/22/23 12/05/23 Rx hydroxyzine HCl 25 mg tablet 25 mg PO TID PRN anxiety #90 tabs 09/22/23 12/05/23 Rx trazodone 50 mg tablet 50 mg PO QHS PRN insomnia #90 tabs 09/22/23 12/05/23 Rx PFSH Medical History Abnormal endoscopy of upper gastrointestinal tract Wears glasses Depression Dietary restriction Heartburn Gastric reflux Smoker Urinary tract infection with hematuria COVID-19 Asthma Surgical History History of wisdom tooth extraction History of carpal tunnel surgery ( 2016) History of Social History Smoking Status: Current every day smoker tobacco type: cigarettes alcohol intake: never substance use type: does not use what type of physical activity do you participate in: walking HPI LEFT WRIST Details: This documentation accurately reflects the service provided and the decisions made by me, Dr. Kaarn Alberto MD 12/05/23 0943. Part of today???s visit was documented by [ ], acting as scribe. STELLA COLLINS is a 33 year old F here today for L CTS. RHD. 3 years of symptoms. getting worse over the last 3 months. working as a [employer]. getting clumsy. the thumb index middle and radial of ring. had surgery 2017 on the right side - feels the same way as it did before surgery. tried a brace now 3 months. 1 PPD cigs. Supplemental Info [facility] Pulmonary Services/Neurology [address] [place] [address] MR#: [id number] Acct: [id number] Name: STELLA COLLINS Rep #: [id number] : 1990 31 From: Milan Gonzalez DO Referring Dr: Martina Bailey Status: REG CLI Location: PSN Date: 09/18/21 Sex: F C NCS and/or EMG Patient Report Ordering Doctor: Martina Bailey DATE OF SERVICE: 09/18/21 Indication: One year of left wrist pain and fluctuating numbness in the first three digits as well as the lateral aspect of digit 4. Symptoms feel similar to carpal tunnel she was previously treated for on the right. There is no associated, localized or radicular neck pain. Findings: Nerve conduction studies were performed in the left upper extremity. The left median motor study recording the abductor pollicis brevis showed a normal amplitude, prolonged distal latency and slowed conduction velocity. The left ulnar motor study recording the abductor digiti minimi showed a normal amplitude, normal distal (more content not included)...[facility]10-05-2024 Telephone encounter Note* Telephone Encounter - Noelle Shaikh LPN - 12/17/2023 9:15 AM EDT Prescription Refill Information The patient has been identified by name and date of : Yes Caregiver verified no other encounters exist for this prescription request: Yes Caregiver confirmed with patient/requestor that no other refills are due, in the near future, with this provider at this time: Yes The last office visit in the department: 10/14/23 Does the patient have a future office visit with this provider/department: No Requested Prescriptions Pending Prescriptions Disp Refills celecoxib (CELEBREX) 200 mg capsule 30 capsule 1 Sig: Take 1 capsule by mouth once daily. Noelle Shaikh LPN December 17, 2023 9:[address] [facility] Miscellaneous Notes* Telephone Encounter - Noelle Shaikh LPN - 12/17/2023 9:15 AM EDT Prescription Refill Information The patient has been identified by name and date of : Yes Caregiver verified no other encounters exist for this prescription request: Yes Caregiver confirmed with patient/requestor that no other refills are due, in the near future, with this provider at this time: Yes The last office visit in the department: 10/14/23 Does the patient have a future office visit with this provider/department: No Requested Prescriptions Pending Prescriptions Disp Refills celecoxib (CELEBREX) 200 mg capsule 30 capsule 1 Sig: Take 1 capsule by mouth once daily. Noelle Shaikh LPN December 17, 2023 9:15 AM documented in this encounterSt. [facility]10-[facility]24 NoteHNO ID: [id number] Author: ARLINE CARABALLO APRN.[facility] Service: ? Author Type: Nurse Practitioner Type: Progress Notes Filed: 12/14/2023 19:20 Note Text: This note was created using NoteWriter. Subjective Stella Collins is a 33 year old female. 33 year old female with PMH presents for possible UTI Acute onset 3 days +burning +frequency +urgency +suprapubic pressure Denies N/V/D Denies fever or chills Denies skin rash or lesions. Denies vaginal bleeding Denies vaginal discharge +sexually active LMP- N/A related to NexPlanon Used Azos The history is provided by the patient. No specialized language instructor was used. UTI This is a new problem. The current episode started more than 2 days ago. The problem occurs every urination. The problem has been gradually worsening. The quality of the pain is described as burning. The pain is at a severity of 5/10. The pain is mild. There has been no fever. She is Sexually active. Associated symptoms include frequency and urgency. Pertinent negatives include no chills, no sweats, no nausea, no vomiting, no discharge, no hematuria, no hesitancy, no possible and no flank pain. Treatments tried: Azos. Her past medical history does not include kidney stones, single kidney, urological procedure, recurrent UTIs, urinary stasis or catheterization. PAST MEDICAL HISTORY Diagnosis Date Anemia WITH Anxiety and depression 09/07/2021 PAST SURGICAL HISTORY Procedure Laterality Date CARPAL TUNNEL 2017 right hand DELIVERY ONLY 2010 , low transverse DELIVERY ONLY 11/06/13 , low transverse DELIVERY ONLY 06/18/2019 RC/S low transverse NEXPLANON INSERTION 12/28/2013 removed TUBAL LIGATION Bilateral 06/18/2019 ALLERGIES Patient has no known allergies. MEDICATIONS celecoxib (CELEBREX) 200 mg capsule Take 1 capsule by mouth once daily. propranolol (INDERAL) 10 mg tablet Take 10 mg by mouth three times a day as needed. REXULTI 0.5 mg tablet Take 0.5 mg by mouth once daily. hydrOXYzine HCl (ATARAX) 25 mg tablet [...] 1 Each by SUBDERMAL route as directed. nitrofurantoin monohydrate and macrocrystal (MACROBID) 100 mg capsule Take 1 capsule by mouth two times a day for 5 days. ondansetron orally disintegrating (ZOFRAN ODT) 4 mg disintegrating tablet Take 1 tablet by mouth every 8 hours as needed for nausea/vomiting. (Patient not taking: Reported on 09/29/2023) fluticasone-salmeterol (ADVAIR DISKUS) 250-50 mcg/dose inhaler Inhale 1 Puff as instructed twice daily. RINSE AND GARGLE MOUTH WITH WATER AFTER EACH USE. (Patient not taking: Reported on 09/29/2023) FAMILY HISTORY Problem Relation Age of Onset [...] History Tobacco Use Smoking status: Every Day Current packs/day: 1.00 Average packs/day: 1 pack/day for 5.0 years (5.0 ttl pk-yrs) Types: Cigarettes Smokeless tobacco: Never Tobacco comments: 1 ppd started at age 18 Vaping Use Vaping status: Never Used Substance Use Topics Alcohol use: No Drug use: No Review of Systems Constitutional: Negative for chills and fatigue. Eyes: Negative for pain, discharge and itching. Respiratory: Negative for apnea, cough, choking and chest tightness. Cardiovascular: Negative for chest pain, palpitations and leg swelling. Gastrointestinal: Negative for abdominal pain, nausea and vomiting. Genitourinary: Positive for dysuria, frequency and urgency. Negative for flank pain, hematuria and hesitancy. Musculoskeletal: Negative for arthralgias and back pain. Skin: Negative for color change, pallor, rash and wound. Allergic/Immunologic: Negative for environmental allergies, food allergies and immunocompromised state. Neurological: Negative for dizziness, facial asymmetry and headaches. Hemato (more content not included)...[facility]10-[facility] History of Present illness Narrative* Arline Caraballo APRN.LYFT DRIVER - 12/14/2023 7:06 PM EDT This note was created using NoteWriter. Subjective Stella Collins is a 33 year old female. 33 year old female with PMH presents for possible UTI Acute onset 3 days +burning +frequency +urgency +suprapubic pressure Denies N/V/D Denies fever or chills Denies skin rash or lesions. Denies vaginal bleeding Denies vaginal discharge +sexually active LMP- N/A related to NexPlanon Used Azos The history is provided by the patient. No specialized language instructor was used. UTI This is a new problem. The current episode started more than 2 days ago. The problem occurs every urination. The problem has been gradually worsening. The quality of the pain is described as burning.The pain is at a severity of 5/10. The pain is mild. There has been no fever. She is Sexually active. Associated symptoms include frequency and urgency. Pertinent negatives include no chills, no sweats, no nausea, no vomiting, no discharge, no hematuria, no hesitancy, no possible and no flank pain. Treatments tried: Azos. Her past medical history does not include kidney stones, single kidney, urological procedure, recurrent UTIs, urinary stasis or catheterization. PAST MEDICAL HISTORY Diagnosis Date Anemia WITH Anxiety and depression 09/07/2021 PAST SURGICAL HISTORY Procedure Laterality Date CARPAL TUNNEL 2017 right hand DELIVERY ONLY 2010 , low transverse DELIVERY ONLY 11/06/13 , low transverse DELIVERY ONLY 06/18/2019 RC/S low transverse NEXPLANON INSERTION 12/28/2013 removed TUBAL LIGATION Bilateral 06/18/2019 ALLERGIES Patient has no known allergies. MEDICATIONS celecoxib (CELEBREX) 200 mg capsule Take 1 capsule by mouth once daily. propranolol (INDERAL) 10 mg tablet Take 10 mg by mouth three times a day as needed. REXULTI 0.5 mg tablet Take 0.5 mg by mouth once daily. hydrOXYzine HCl (ATARAX) 25 mg tablet [...] 2 Puffs as instructed every 4 hours asneeded for wheezing/shortness of breath. etonogestrel (NEXPLANON) subdermal implant 68 mg 1 Each by SUBDERMAL route as directed. nitrofurantoin monohydrate and macrocrystal (MACROBID) 100 mg capsule Take 1 capsule by mouth two times a day for 5 days. ondansetron orally disintegrating (ZOFRAN ODT) 4 mg disintegrating tablet Take 1 tablet by mouth every 8 hours as needed for nausea/vomiting. (Patient not taking: Reported on 09/29/2023) fluticasone-salmeterol (ADVAIR DISKUS) 250-50 mcg/dose inhaler Inhale 1 Puff as instructed twice daily. RINSE AND GARGLE MOUTH WITH WATER AFTER EACH USE. (Patient not taking: Reported on 09/29/2023) FAMILY HISTORY Problem Relation Age of Onset [...] History Tobacco Use Smoking status: Every Day Current packs/day: 1.00 Average packs/day: 1 pack/day for 5.0 years (5.0 ttl pk-yrs) Types: Cigarettes Smokeless tobacco: Never Tobacco comments: 1 ppd started at age 18 Vaping Use Vaping status: Never Used Substance Use Topics Alcohol use: No Drug use: No Review of Systems Constitutional: Negative for chills and fatigue. Eyes: Negative for pain, discharge and itching. Respiratory: Negative for apnea, cough, choking and chest tightness. Cardiovascular: Negative for chest pain, palpitations and leg swelling. Gastrointestinal: Negative for abdominal pain, nausea and vomiting. Genitourinary: Positive for dysuria, frequency and urgency. Negative for flank pain, hematuria and hesitancy. Musculoskeletal: Negative for arthralgias and back pain. Skin: Negative for color change, pallor, rash and wound. Allergic/Immunologic: Negative for environmental allergies, food allergies and immunocompromised state. Neurological: Negative for dizziness, facial asymmetry and headaches. Hematological: Negative for adenopathy. Does not bruise/bleed easily. Psychiatric/Behavioral: Negative for agitation and behavioral problems. Objective LMP 07/15/2020 BP 112/70 Pulse 114 Temp 36.3 C (97.3 F) Resp 19 Wt 95.7 kg (210 lb 15.7 oz) LMP 07/15/2020 SpO2 98% BMI 39.86 kg/m Physical Exam Vitals and nursing note reviewed. Constitutional: General: She is not in acute distress. Appearance: Normal appearance. She is obese. She is not ill-appearing, toxic- appearing or diaphoretic. HENT: Head: Normocephalic and atraumatic. [...] No edema. Left lower leg: No edema. Lymphadenopathy: Cervical: No cervical adenopathy. Skin: General: Skin is warm and dry. Coloration: Skin is not jaundiced or pale. [...] Judgment normal. Assessment and Plan ASSESSMENT/PLAN: 1. Dysuria - ICD9: 788.1, ICD10: R30.0 X 3 days acute - UA positive for paola esterase, hematuria, proteinuria, nitrates (patient used [facility] ) - Send urine for culture - Begin treatment with Macrobid 100 mg BID for 5 days - Patient education for prevention given - UA DIP, URINE (POC) - URINE CULTURE Arline Caraballo APRN.LYFT DRIVER documented in [facility] NoteHNO ID: [id number] Author: BEULAH FLORES LPN Service: ? Author Type: LICENSED NURSE Type: Progress Notes Filed: 12/06/2023 08:59 Note Text: Per Dr. Bautista Stella was provided with powerstep original inserts, size 9, and instructed/educated in its application, wear, and care. All questions were answered, and patient was able to demonstrate competence with the necessary skills to utilize the above equipment. [facility] History of Present illness Narrative* Beulah Flores LPN - 12/05/2023 2:00 PM EDT Per Stella Cheatham was provided with powerstep original inserts, size 9, and instructed/educated in its application, wear, and care. All questions were answered, and patient was able to demonstrate competence with the necessary skills to utilize the above equipment. Beulah Flores LPN * Martina Bautista - 12/05/2023 1:49 PM EDT Initial Podiatric Office Visit: Chief Complaint: This 33 year old female who presents with chief complaint:left heel pain HPI Patient presents to clinic for evaluation of left foot Complains of pain to left heel/arch that has been going on for several months Patient states the pain is present the more she is on her foot. She states she has tried heel lifts and stretching but nothing makes the pain go away. PAIN EVALUATION 12/05/2023 1344 Pain Level: 4 Pain Location: Foot-Left Description: Sore Duration Amount of Time: 3 Duration Units: Months Frequency: Continuous Intervention/Comfort measure: Reposition;Relaxation;Medication;Cold Hemoglobin A1C (%) Date Value 06/26/2022 5.6 PCP: Isma Almanza MD PAST MEDICAL HISTORY Diagnosis Date Anemia WITH Anxiety and depression 09/07/2021 Current Outpatient Medications Medication Sig celecoxib (CELEBREX) 200 mg capsule Take 1 capsule by mouth once daily. propranolol (INDERAL) 10 mg tablet Take 10 mg by mouth three times a day as needed. REXULTI 0.5 mg tablet Take 0.5 mg by mouth once daily. ondansetron orally disintegrating (ZOFRAN ODT) 4 mg disintegrating tablet Take 1 tablet by mouth every 8 hours as needed for nausea/vomiting. (Patient not taking: Reported on 09/29/2023) hydrOXYzine HCl (ATARAX) 25 mg tablet Take [...] 2 Puffs as instructed every 4 hours asneeded for wheezing/shortness of breath. fluticasone-salmeterol (ADVAIR DISKUS) 250-50 mcg/dose inhaler Inhale 1 Puff as instructed twice daily. RINSE AND GARGLE MOUTH WITH WATER AFTER EACH USE. (Patient not taking: Reported on 09/29/2023) etonogestrel (NEXPLANON) subdermal implant 68 mg 1 Each by SUBDERMAL route as directed. No current facility-administered medications for this visit. ALLERGIES No Known Allergies PAST SURGICAL HISTORY Procedure Laterality Date CARPAL [...] History Tobacco Use Smoking status: Every Day Current packs/day: 1.00 Average packs/day: 1 pack/day for 5.0 years (5.0 ttl pk-yrs) Types: Cigarettes Smokeless tobacco: Never Tobacco comments: 1 ppd started at age 18 Vaping Use Vaping status: Never Used Substance Use Topics Alcohol use: No Drug use: No REVIEW OF SYSTEMS GENERAL: Negative for Malaise, significant weight loss, fever RESPIRATORY: Negative for cough, wheezing and shortness of breath CARDIOVASCULAR: Negative for chest pain, leg swelling and palpitations GI: Negative for abdominal discomfort, blood in stools or black stools and change in bowel habits : Negative for dysuria, frequency and incontinence MUSCULOSKELETAL: Negative for joint pain or swelling, back pain, and muscle pain. SKIN: Negative for lesions, rash, and itching. HEMATOLOGY/LYMPHOLOGY Negative for prolonged bleeding, bruising easily, and swollen nodes. ENDOCRINE: Negative for cold or heat intolerance, polyuria, polydipsia and goiter. NEURO: negative Physical Exam: Constitutional: Pt is a well developed 33 year old female who is alert, oriented and cooperative Eyes: Following during examination. No redness or drainage. Respiratory: RR normal and nonlabored. Even breathing. No evidence of distress or shortness of breath. Psychology: Patient is engaged during conversation. Normal affect and mood. Does not appear depressed or anxious during encounter. Vascular: Dorsalis pedis and posterior tibial pulses palpable as b/l Capillary Fill time < 5 seconds to digits 1-5 b/l Skin temperature warm to warm proximal to distal b/l Hair growth present to digits Neurological: intact light touch/epicritic sensation - tinel b/l intact protective sensation no significant neurological deficits Dermatological: Nails 1-5 b/l appear normal. Webspaces clean and dry 1-4 b/l. Skin appears well hydrated and supple. good color, texture, turgor. No open lesions present. No callosities present. Musculoskeletal/Orthopaedic: Patient has pain to palpation of left plantar medial heel + prominent adipose tissue to the left medial instep but similar to right instep Foot type is slightly pronated structurally AJ ROM is full with knee extended and flexed 1st MPJ is full when loaded and no pain or crepitus are noted with ROM. MTJ, STJ are full and free of pain and crepitus. +5/5 muscle strength dorsiflexion, plantarflexion, inversion, eversion b/l Radiographs: past xrays reviewd. No acute findings noted. ASSESSMENT: (M72.2) Plantar fasciitis (primary encounter diagnosis) (M79.672) Pain of left heel PLAN: 1. Initial Office Visit - A thorough review of the patient's PMH and Podiatric physical exam was completed. 2. Patient advised to perform stretching excercises, icing, and to make appropriate shoe gear changes to include wearing athletic-type shoes with supportive insoles. No barefoot walking. Patient alsogiven written instructions on how to correctly perform the stretching of the achilles tendon/calf st retches, and the heel spur/plantar fasciitis regimen. 3. Patient advised to seek wide, deep toe box, accomodative, comfortable, lace- up, athletic/walkingtype footwear that includes motion control characteristics for support and cushion that need to be worn at all times when weight-bearing. Shoes should be tested for torsional stability as well as proper bending at the toebox rather than at the midfoot. Good quality shoes such as, but not limited to, New Balance or Asics are examples of more proper foot gear. 4. Patient recommended to get powerstep insoles for proper support of the arch in order to alleviate the tension and stress on the plantar fascia associated with normal daily walking. Patient advisedthat these modalities used in conjunction with stretching and icing are able to alleviate most symptoms from this condition. 5. Discussed injection. Patient declined. If pain fails to improve, consider injection 6. Discussed palpable adiposity of medial instep. Likely just adipose tissue. Offered mri for further evaluation. She has elected to try inserts and stretching. I will see patient back in one month. If no improvement, consider mri Martina Bautista DPM Podiatry [address] [facility] [address] Dept: [phone] Dept * Beulah Flores LPN - 12/05/2023 1:43 PM EDT AMB ROOMING INTAKE FLOWSHEET DATA Pain Pain Level: 4 Pain Location: Foot-Left Description: Sore Duration Amount of Time: 3 Duration Units: Months Frequency: Continuous Intervention/Comfort measure: Reposition, Relaxation, Medication, Cold Patient presents with: Left Foot - New, Swelling, Pain Beulah Flores LPN documented in this encounterSt. [facility]-2024 Instructions* Patient Instructions* Martina Bautista - 12/05/2023 1:56 PM EDT Images from the original note were not included. What is Plantar Fasciitis? Plantar fasciitis is the most common cause of heel pain. The pain is caused by inflammation of the plantar fascia. If you strain your plantar fascia, it becomes weak, swollen and irritated (inflamed). The resulting pain may be isolated in the heel or may appear at different points on the bottom of the foot, from time to time; it may occur in one foot or both. Some think that plantar fasciitis pain is caused by irritation of nerves from tissue swelling or inflammation, but it is debatable. Plantar fasciitis is common in middle-aged people; it also occurs in younger people who are on their feeta lot, such as athletes or soldiers. The plantar fascia is a strong band of connective tissue that extends from the base of the toes, along the bottom of the foot, to the bottom of the heel (calcaneous bone); it acts like a bowstring tomaintain the arch of the foot. What are heel spurs? The inflammatory reaction of the heel bone may produce spike-like projections of new bone, called heel spurs. The spurs sometimes show on X-rays. They neither cause the initial pain nor do they causethe initial problem. However, later, having to walk on spurs may cause sharp pain. What causes plantar fasciitis? Plantar fasciitis is caused by straining the ligament that supports your arch. Repeated strain can cause tiny tears in the ligament. These lead to pain and swelling. During walking, the plantar fascia experiences tension up to twice the body weight with each step. While this is normal, those who spend much time on their feet, such as nurses, filling machine operator/waiters, andmail carriers, often experience plantar fasciitis. Athletes involved in tennis or other racquet sports, race walking, jogging or running also show a higher incidence of plantar fasciitis than do those participating in other activities. Thus, it's clear that plantar fasciitis is predominantly an overuse injury. In fact, any activity that results in prolonged tension and stress on the plantar fascia may cause plantar fasciitis. It is possible that changes in footwear may play a role in causing plantar fasciitis, no matter what activity is occurring. Those who are overweight are prone to plantarfasciitis. This is true even for sedentary people who get little physical activity. Abnormalities of the foot and ankle joints may predispose some individuals to development of plantar fasciitis (specifically, over pronation of the subtalar joint). Contributing Factors * Flat feet * Toe running, hill running * Sudden weight increase * High-arched, rigid feet * Soft terrain, e.g. running on sand * Obesity * Pronated feet (rolled inward) * Sudden increase in activity* Family tendency * Poor shoe support * Worn out or poorly fitted shoes * Increasing age * Walking,standing or running for long periods of time, especially on hard surfaces. How is the Injury Treated? Rest Your Feet: Limit, or if possible, stop activities that are causing your heel pain. Try to avoid running or walking on hard surfaces, such as concrete. Use pain as your guide. If your foot is toopainful, rest it. Ice: Ice the sore area for 30 to 60 minutes, several times a day, to reduce inflammation and relieve pain. Apply a plastic bag of crushed ice (or a bag of frozen peas) over a towel. Ice the sore areafor 15 minutes after activity/exercise. Application of heat is not generally recommended, as heat ex pands the bone and connective tissue, perhaps exerting greater pressure on nerves and thereby increasing pain. If heat is used, follow it with ice. Medication: If your condition developed recently, anti-inflammatory/analgesic medication, combined with heel pads (see below) may be all that is necessary to relieve pain and to reduce inflammation. If no pain relief has occurred after 2- 3 weeks, however, your doctor may inject either cortisone or local anesthetic directly into the tender area. Exercises: Do simple exercises, such as calf stretches and towel stretches (see below) several times a day, especially when you first get up in the morning. These can help your ligament become more flexible and strengthen the muscles that support your arch. Shoes: Poorly fitting shoes can cause plantar fasciitis. The best type of shoe to wear is a good walking or running shoe with good shock absorption and excellent arch support. You should choose the one that fits the best. [place] with your athletic shoes to find a pair that is comfortable and causes fewer symptoms. Put your shoes on as soon as you get out of bed; going barefoot or wearing slippers may make your pain worse. Good brands include (but are not limited to): New Balance, Asics, Saucony, SAS and Merrel s. Taping: Your doctor may tape your foot to maintain the arch. This takes some of the tension off theplantar fascia. Weight Loss: If your weight is putting extra stress on your feet, your doctor may encourage you to try a weight-loss program. Orthotics: An orthotic insole is a molded piece of rubber, plastic, or other material that you insert into your shoe. It corrects the alignment of your foot and cushions your foot from excessive pounding. These may be prescription or non-prescription. Prescription orthotics are custom-fitted and may fit better and control pain better, but are very expensive. Night Splints: A night splint holds the foot with the toes pointed up and the ankle at a 90-degree angle. This position applies a constant, gentle stretch to the plantar fascia. Corticosteroid Shots: Steroids may be injected into the tender area to reduce inflammation. REHAB Exercises to stretch the plantar fascia, the calf muscles, and the Achilles tendon. Tightness of the muscles of the calves may contribute to plantar fasciitis, so stretching the calf muscles is important to rehabilitation, as is stretching of the plantar fascia itself. Plantar fascial stretches Assisted Dorsiflexion/Plantar Fascia Stretch: Sit on the floor or ground, barefoot, with both legs outstretched. Use a towel or elastic band and wrap it around the ball (and not the toes) of the affected foot. Use the towel or elastic band to provide resistance to upward movement of the forefoot. Pull foot upward (toward your body) with the help of the elastic band or towel, and then return to the starting position. Ten repetitions are recommended. Perform the sequence at least three times a day. Alternate Plantar Fascia Stretch: Sit upright in a chair, barefoot. Place the ankle of the affectedfoot on your opposite knee. Using the same hand as the affected foot, reach across and grab the toes. Flex the ankle toward and pull the toes toward the palafox. To test the stretch, place the thumb of your hand on the bottom of the foot. You should be able to feel the cord-like plantar fascia, running the length of the foot. Hold the stretch for a count of 10, then relax. Repeat 10 times. Do the sequence at least three times a day. Achilles/Calf Stretches Strengthening the muscles of the calves may contribute to successful rehabilitation of plantar fasciitis, as well as prevent reoccurrence. The exercises below will help strengthen the calf muscles. Calf and Achilles Tendon Stretch (Gastrocnemius Stretch): Face a wall, standing an arm's length away. Place one foot back. Place both hands on the wall. Bend the elbows and knee of your forward leg, keeping the heel of the backward foot on the floor and keeping your body straight (aligned), until your forehead nearly touches the wall, or until significant stretch is felt in the muscles of the calf of the backward leg. Hold this position for 10 to 15 seconds. Extend elbows (straighten your arms and stand upright again) and maintain this position for 10 seconds. Repeat this cycle 15 to 20 times. Switch legs and repeat the exercise. Powerstep Original Full length. Can purchase at [employer] and boots,shoes and more here in [place], [employer] in [place] or [place]. Also can find in [place] in [facility]. Powersteps can also be purchased online, starting around $45.00 If you have a metatarsal or dancer pad for your feet apply the pad directly to the insole so you can interchange between your shoes. Find a shoe with a removable insole and take this out and replace with your powerstep insole. Always bring powersteps with you when shopping for shoes so that you can make sure that everything fits well together documented in this encounterSt. [facility] NoteHNO ID: [id number] Author: MARTINA BAUTISTA, ? Service: ? Author Type: Physician Type: Progress Notes Filed: 12/06/2023 08:59 Note Text: Initial Podiatric Office Visit: Chief Complaint: This 33 year old female who presents with chief complaint:left heel pain HPI Patient presents to clinic for evaluation of left foot Complains of pain to left heel/arch that has been going on for several months Patient states the pain is present the more she is on her foot. She states she has tried heel lifts and stretching but nothing makes the pain go away. PAIN EVALUATION 12/05/2023 1344 Pain Level: 4 Pain Location: Foot-Left Description: Sore Duration Amount of Time: 3 Duration Units: Months Frequency: Continuous Intervention/Comfort measure: Reposition;Relaxation;Medication;Cold Hemoglobin A1C (%) Date Value 06/26/2022 5.6 PCP: Isma Almanza MD PAST MEDICAL HISTORY Diagnosis Date Anemia WITH Anxiety and depression 09/07/2021 Current Outpatient Medications Medication Sig celecoxib (CELEBREX) 200 mg capsule Take 1 capsule by mouth once daily. propranolol (INDERAL) 10 mg tablet Take 10 mg by mouth three times a day as needed. REXULTI 0.5 mg tablet Take 0.5 mg by mouth once daily. ondansetron orally disintegrating (ZOFRAN ODT) 4 mg disintegrating tablet Take 1 tablet by mouth every 8 hours as needed for nausea/vomiting. (Patient not taking: Reported on 09/29/2023) hydrOXYzine HCl (ATARAX) 25 mg tablet Take [...] hours as needed for wheezing/shortness of breath. fluticasone-salmeterol (ADVAIR DISKUS) 250-50 mcg/dose inhaler Inhale 1 Puff as instructed twice daily. RINSE AND GARGLE MOUTH WITH WATER AFTER EACH USE. (Patient not taking: Reported on 09/29/2023) etonogestrel (NEXPLANON) subdermal implant 68 mg 1 Each by SUBDERMAL route as directed. No current facility-administered medications for this visit. ALLERGIES No Known Allergies PAST SURGICAL HISTORY Procedure Laterality Date CARPAL [...] History Tobacco Use Smoking status: Every Day Current packs/day: 1.00 Average packs/day: 1 pack/day for 5.0 years (5.0 ttl pk-yrs) Types: Cigarettes Smokeless tobacco: Never Tobacco comments: 1 ppd started at age 18 Vaping Use Vaping status: Never Used Substance Use Topics Alcohol use: No Drug use: No REVIEW OF SYSTEMS GENERAL: Negative for Malaise, significant weight loss, fever RESPIRATORY: Negative for cough, wheezing and shortness of breath CARDIOVASCULAR: Negative for chest pain, leg swelling and palpitations GI: Negative for abdominal discomfort, blood in stools or black stools and change in bowel habits : Negative for dysuria, frequency and incontinence MUSCULOSKELETAL: Negative for joint pain or swelling, back pain, and muscle pain. SKIN: Negative for lesions, rash, and itching. HEMATOLOGY/LYMPHOLOGY Negative for prolonged bleeding, bruising easily, and swollen nodes. ENDOCRINE: Negative for cold or heat intolerance, polyuria, polydipsia and goiter. NEURO: negative Physical Exam: Constitutional: Pt is a well developed 33 year old female who is alert, oriented and cooperative Eyes: Following during examination. No redness or drainage. Respiratory: RR normal and nonlabored. Even breathing. No evidence of distress or shortness of breath. Psychology: Patient is engaged during conversation. Normal affect and mood. Does not appear depressed or anxious during encounter. Vascular: Dorsalis pedis and posterior tibial pulses palpable as b/l Capillary Fill time < 5 seconds to digits (more content not included)... [facility]09-23-2024 NoteHNO ID: [id number] Author: BEULAH FLORES LPN Service: ? Author Type: LICENSED NURSE Type: Progress Notes Filed: 12/06/2023 08:59 Note Text: AMB ROOMING INTAKE FLOWSHEET DATA Pain Pain Level: 4 Pain Location: Foot-Left Description: Sore Duration Amount of Time: 3 Duration Units: Months Frequency: Continuous Intervention/Comfort measure: Reposition, Relaxation, Medication, Cold Patient presents with: Left Foot - New, Swelling, Pain [facility] History of Present illness Narrative* Abeba Chase APRN.EQUIPMENT OPERATOR [employer] - 10/14/2023 2:40 PM EDT SUBJECTIVE: Pneumococcal Vaccine(1 of 2 - PCV) Never done HPV Vaccine(3 - 3-dose SCDM series) due on 10/04/2022 Covid-19 Vaccine( season) due on 11/12/2022 Cervical Cancer Screening due on 03/18/2023 [facility] Stella Collins is a 32 year old female. PMH significant for ACTIVE PROBLEM LIST Obesity, Class Iii, Bmi 40-49.9 (Morbid Obesity) (Hcc) Pain in Right Knee Chronic Right-Sided Low Back Pain With Right-Sided Sciatica Carpal Tunnel Syndrome of Right Wrist Anxiety and Depression PCP: Isma Almanza MD Presents today regarding celebrex. She was seen in [facility] 29, 2023 for pain of the left heel. X-ray completed and negative for concerning findings. Treated with meloxicam. She notes that meloxicam caused swelling of her legs so she discontinued it with clearing of the swelling. She notesthat she is taking Tylenol but not helping much. Notes she put a heel cup in her shoe did not seem to help as well. Has been stretching her foot at home with some relief. 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 Review of Systems Constitutional: Negative. HENT: Negative. Musculoskeletal: Positive for arthralgias. Objective BP 116/72 (BP Site: Left Arm, BP Position: Sitting, BP Cuff Size: Large Adult) Pulse 111 Resp 14 Ht 154.9 cm (5' 1) Wt 96.4 kg (212 lb 8.4 oz) LMP 07/15/2020 SpO2 98% BMI 40.16 kg/m Physical Exam Vitals and nursing note reviewed. Constitutional: Appearance: Normal appearance. HENT: Head: Normocephalic and atraumatic. Mouth/Throat: Lips: [place] 7. Eyes: Conjunctiva/sclera: Conjunctivae normal. Cardiovascular: Rate and Rhythm: Normal rate and regular rhythm. Pulses: Dorsalis pedis pulses are 2+ on the left side. Heart sounds: Normal heart sounds. Pulmonary: Effort: Pulmonary effort is normal. Breath sounds: Normal breath sounds. Feet: Left foot: Skin integrity: Skin integrity normal. Comments: Not TTP heel, achilles area, TTP midfoot and heel and midfoot pain with ROM Skin: General: Skin is warm and dry. Neurological: General: No focal deficit present. Mental Status: She is alert and oriented to person, place, and time. ALLERGIES No Known Allergies Medication celecoxib (CELEBREX) 200 mg capsule Take 1 capsule by mouth once daily. propranolol (INDERAL) 10 mg tablet Take 10 mg by mouth three times a day as needed. meloxicam (MOBIC) 15 mg tablet Take 1 tablet by mouth once daily for 15 days. Take with food. REXULTI 0.5 mg tablet Take 0.5 mg by mouth once daily. ondansetron orally disintegrating (ZOFRAN ODT) 4 mg disintegrating tablet Take 1 tablet by mouth every 8 hours as needed for nausea/vomiting. (Patient not taking: Reported on 09/29/2023) hydrOXYzine HCl (ATARAX) 25 mg tablet Take [...] 2 Puffs as instructed every 4 hours asneeded for wheezing/shortness of breath. fluticasone-salmeterol (ADVAIR DISKUS) 250-50 mcg/dose inhaler Inhale 1 Puff as instructed twice daily. RINSE AND GARGLE MOUTH WITH WATER AFTER EACH USE. (Patient not taking: Reported on 09/29/2023) etonogestrel (NEXPLANON) subdermal implant 68 mg 1 Each by SUBDERMAL route as directed. PAST MEDICAL HISTORY No date: Anemia Comment: WITH 09/07/2021: Anxiety and depression Social History Tobacco Use Smoking status: Every Day Packs/day: 0.50 Years: 5.00 Additional pack years: 0.00 Total pack years: 2.50 Types: Cigarettes Smokeless tobacco: Never Tobacco comments: 1 ppd started at age 18 Vaping Use Vaping Use: Never used Substance Use Topics Alcohol use: No Drug use: No ASSESSMENT/PLAN: 1. Left foot pain - ICD9: 729.5, ICD10: M79.672 She notes improved with home measures but intolerant of meloxicam due to side effects. Will switch to Celebrex per her request, notes that she works with the pharmacist recommended this. I think thisis fine. She has an appointment coming up with Dr. Bautista podiatry. Will provide her with Uptodate information regarding plantar fasciitis, recommend completing home stretches avoiding walking barefoot continue with a heel cup in her shoe and icing her foot until she is seen along with taking theCelebrex. - CELECOXIB 200 MG CAPSULE Abeba Chase APRN.EQUIPMENT OPERATOR [employer] Medical Decision Making: Problems: Low: Acute, uncomplicated illness or injury Data: Unique test result(s) reviewed: 1 Risk: Moderate: Drug management Medical Decision Making Level: 3 - Low documented in this encounterSt[facility] NoteHNO ID: [id number] Author: ABEBA CHASE APRN.EQUIPMENT OPERATOR [employer] Service: ? Author Type: Nurse Specialist Type: Progress Notes Filed: 10/14/2023 15:17 Note Text: SUBJECTIVE: Pneumococcal Vaccine(1 of 2 - PCV) Never done HPV Vaccine(3 - 3-dose SCDM series) due on 10/04/2022 Covid-19 Vaccine( - 2022- season) due on 11/12/2022 Cervical Cancer Screening due on 03/18/2023 HPI Stella Collins is a 32 year old female. PMH significant for ACTIVE PROBLEM LIST Obesity, Class Iii, Bmi 40-49.9 (Morbid Obesity) (Hcc) Pain in Right Knee Chronic Right-Sided Low Back Pain With Right-Sided Sciatica Carpal Tunnel Syndrome of Right Wrist Anxiety and Depression PCP: Isma Almanza MD Presents today regarding celebrex. She was seen in [facility] 29, 2023 for pain of the left heel. X-ray completed and negative for concerning findings. Treated with meloxicam. She notes that meloxicam caused swelling of her legs so she discontinued it with clearing of the swelling. She notes that she is taking Tylenol but not helping much. Notes she put a heel cup in her shoe did not seem to help as well. Has been stretching her foot at home with some relief. 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 Review of Systems Constitutional: Negative. HENT: Negative. Musculoskeletal: Positive for arthralgias. Objective BP 116/72 (BP Site: Left Arm, BP Position: Sitting, BP Cuff Size: Large Adult) Pulse 111 Resp 14 Ht 154.9 cm (5' 1) Wt 96.4 kg (212 lb 8.4 oz) LMP 07/15/2020 SpO2 98% BMI 40.16 kg/m? Physical Exam Vitals and nursing note reviewed. Constitutional: Appearance: Normal appearance. HENT: Head: Normocephalic and atraumatic. Mouth/Throat: Lips: [place] 7. Eyes: Conjunctiva/sclera: Conjunctivae normal. Cardiovascular: Rate and Rhythm: Normal rate and regular rhythm. Pulses: Dorsalis pedis pulses are 2+ on the left side. Heart sounds: Normal heart sounds. Pulmonary: Effort: Pulmonary effort is normal. Breath sounds: Normal breath sounds. Feet: Left foot: Skin integrity: Skin integrity normal. Comments: Not TTP heel, achilles area, TTP midfoot and heel and midfoot pain with ROM Skin: General: Skin is warm and dry. Neurological: General: No focal deficit present. Mental Status: She is alert and oriented to person, place, and time. ALLERGIES No Known Allergies Medication celecoxib (CELEBREX) 200 mg capsule Take 1 capsule by mouth once daily. propranolol (INDERAL) 10 mg tablet Take 10 mg by mouth three times a day as needed. meloxicam (MOBIC) 15 mg tablet Take 1 tablet by mouth once daily for 15 days. Take with food. REXULTI 0.5 mg tablet Take 0.5 mg by mouth once daily. ondansetron orally disintegrating (ZOFRAN ODT) 4 mg disintegrating tablet Take 1 tablet by mouth every 8 hours as needed for nausea/vomiting. (Patient not taking: Reported on 09/29/2023) hydrOXYzine HCl (ATARAX) 25 mg tablet Take [...] hours as needed for wheezing/shortness of breath. fluticasone-salmeterol (ADVAIR DISKUS) 250-50 mcg/dose inhaler Inhale 1 Puff as instructed twice daily. RINSE AND GARGLE MOUTH WITH WATER AFTER EACH USE. (Patient not taking: Reported on 09/29/2023) etonogestrel (NEXPLANON) subdermal implant 68 mg 1 Each by SUBDERMAL route as directed. PAST MEDICAL HISTORY No date: Anemia Comment: WITH 09/07/2021: Anxiety and depression Social History Tobacco Use Smoking status: Every Day Packs/day: 0.50 Years: 5.00 Additional pack years: 0.00 Total pack years: 2.50 Types: Cigarettes Smokeless tobacco: Never Tobacco comments: 1 ppd started at age 18 Vaping Use Vaping Use: Never used Substance Use Topics Alcohol use: No Drug use: No ASSESSMENT/PLAN: 1. Left foot pain - ICD9: 729.5, ICD10: M79.672 She notes improved with home measures but intolerant of meloxicam due to side effects. Will switch to Celebrex per her request, notes that she works with the pharmacist recommended this. I think this is fine. She has an appointment coming up with Dr. Bautista podiatry. Will provide her with Uptodate information regarding plantar fasciitis, recommend completing home stretches avoiding walking barefoot continue with a heel cup in her shoe and icing her foot until she is seen along with taking the Celebrex. - CELECOXIB 200 MG CA (more content not included)...[facility] 09-29-2023 History of Present illness Narrative* Cheri Lugo, RT(R) - 09/29/2023 7:00 PM EDT Radiology Service Progress Note PATIENT NAME: Stella Collins DATE OF SERVICE: September 29, 2023 TIME: 7:07 PM PATIENT IDENTITY VERIFICATION COMPLETED USING TWO (2) IDENTIFIERS: Name and Date of confirmedby patient verbally. FALL SCREENING: Has the patient had 2 falls in the last year or 1 fall with injury or currently using an Ambulatory Assistive Device (Walker, Cane, Wheelchair, Crutches, etc.)? No PATIENT GENDER DATA: Female. status: : No status: NO. PATIENT RELEVANT IMPLANT DATA REVIEWED: Yes PATIENT PRESENTS WITH AN IMPLANTABLE OR ATTACHED SENIOR ORACLE PL SQL DEVELOPER: No RADIOLOGY DEPARTMENT: General X-ray: Exam(s) Completed: Lower Extremity X- Ray(s): Heel, Left PERIPHERAL IV DATA: Not applicable SIGNED BY: RT Cherise(Brandin) September 29, 2023 7:07 PM documented in this encounterSt[facility] NoteHNO ID: [id number] Author: CHERI LUGO RT(R) Service: ? Author Type: Meat Pumper Type: Progress Notes Filed: 09/29/2023 19:14 Note Text: Radiology Service Progress Note PATIENT NAME: Stella Collins DATE OF SERVICE: September 29, 2023 TIME: 7:07 PM PATIENT IDENTITY VERIFICATION COMPLETED USING TWO (2) IDENTIFIERS: Name and Date of confirmed by patient verbally. FALL SCREENING: Has the patient had 2 falls in the last year or 1 fall with injury or currently using an Ambulatory Assistive Device (Walker, Cane, Wheelchair, Crutches, etc.)? No PATIENT GENDER DATA: Female. status: : No status: NO. PATIENT RELEVANT IMPLANT DATA REVIEWED: Yes PATIENT PRESENTS WITH AN IMPLANTABLE OR ATTACHED SENIOR ORACLE PL SQL DEVELOPER: No RADIOLOGY DEPARTMENT: General X-ray: Exam(s) Completed: Lower Extremity X-Ray(s): Heel, Left PERIPHERAL IV DATA: Not applicable SIGNED BY: RT Cherise(R) September 29, 2023 7:07 [facility]07-18-2024 NoteHNO ID: [id number] Author: SILVESTRE DIANA MD Service: ? Author Type: Physician Type: Progress Notes Filed: 09/29/2023 19:40 Note Text: Patient presents with: Pain (foot): Left foot pain, swollen lump on heel x 2 weeks HPI: Left foot pain: Duration: 2 weeks. Location: bottom of the left heel Character: sharp and throbbing Radiation: No. Aggravating: standing and walking Relieving: Pain relievers: aleve, insole, stretching Associated: swelling at the front of the heel Pertinent negatives: Denies no known injury. MEDICATIONS: propranolol (INDERAL) 10 mg tablet Take 10 mg by mouth three times a day as needed. REXULTI 0.5 mg tablet Take 0.5 mg by mouth once daily. hydrOXYzine HCl (ATARAX) 25 mg tablet [...] mg by mouth two times a day.) etonogestrel (NEXPLANON) subdermal implant 68 mg 1 Each by SUBDERMAL route as directed. ondansetron orally disintegrating (ZOFRAN ODT) 4 mg disintegrating tablet Take 1 tablet by mouth every 8 hours as needed for nausea/vomiting. (Patient not taking: Reported on 09/29/2023) ibuprofen (MOTRIN) 600 mg tablet Take 1 tablet by mouth every 6 hours as needed for pain. (Patient not taking: Reported on 09/29/2023) albuterol HFA (VENTOLIN HFA) 90 mcg/actuation inhaler Inhale 2 Puffs as instructed every 4 hours as needed for wheezing/shortness of breath. fluticasone-salmeterol (ADVAIR DISKUS) 250-50 mcg/dose inhaler Inhale 1 Puff as instructed twice daily. RINSE AND GARGLE MOUTH WITH WATER AFTER EACH USE. (Patient not taking: Reported on 09/29/2023) ALLERGIES: ALLERGIES No Known Allergies VITALS: BP 110/90 Pulse 119 Temp 36.6 ?C (97.9 ?F) Resp 21 Wt 96.1 kg (211 lb 13.8 oz) LMP 07/15/2020 SpO2 99% BMI 40.03 kg/m? PHYSICAL EXAM: GEN: pleasant, alert, no acute distress FOOT/ANKLE: left. Minimal swelling anterior calcaneus. No erythema, ecchymosis, or deformity. Range of motion: inversion - non-painful, eversion - non-painful, anterior drawer- non-painful. Able to bear weight. normal gait. Palpation: Medial malleolus non-painful, lateral malleolus non-painful, Dorsal proximal midfoot - non-painful, proximal 5th metatarsal non-painful, posterior calcaneus uncomfortable, anterior-inferior and medial-anterior calcaneus are tender to palpation. ASSESSMENT/PLAN: 1. Pain of left heel - ICD9: 729.5, ICD10: M79.672 - XR CALCANEUS 2V AXIAL/LAT LEFT -no obvious fractures or spurs. Radiology interpretation is pending. The patient will be notified if there is a significant finding in the report not discussed at the time of the visit. Suspect plantar fasciitis. Continue supportive care treatment. - CONSULT TO PODIATRY Change from aleve to - MELOXICAM 15 MG TABLET to reduce gastric irritation. Silvestre Diana, [facility]07-18-2024 History of Present illness Narrative* Silvestre Diana MD - 09/29/2023 6:56 PM EDT Patient presents with: Pain (foot): Left foot pain, swollen lump on heel x 2 weeks HPI: Left foot pain: Duration: 2 weeks. Location: bottom of the left heel Character: sharp and throbbing Radiation: No. Aggravating: standing and walking Relieving: Pain relievers: aleve, insole, stretching Associated: swelling at the front of the heel Pertinent negatives: Denies no known injury. MEDICATIONS: propranolol (INDERAL) 10 mg tablet Take 10 mg by mouth three times a day as needed. REXULTI 0.5 mg tablet Take 0.5 mg by mouth once daily. hydrOXYzine HCl (ATARAX) 25 mg tablet [...] mg by mouth two times a day.) etonogestrel (NEXPLANON) subdermal implant 68 mg 1 Each by SUBDERMAL route as directed. ondansetron orally disintegrating (ZOFRAN ODT) 4 mg disintegrating tablet Take 1 tablet by mouth every 8 hours as needed for nausea/vomiting. (Patient not taking: Reported on 09/29/2023) ibuprofen (MOTRIN) 600 mg tablet Take 1 tablet by mouth every 6 hours as needed for pain. (Patient not taking: Reported on 09/29/2023) albuterol HFA (VENTOLIN HFA) 90 mcg/actuation inhaler Inhale 2 Puffs as instructed every 4 hours asneeded for wheezing/shortness of breath. fluticasone-salmeterol (ADVAIR DISKUS) 250-50 mcg/dose inhaler Inhale 1 Puff as instructed twice daily. RINSE AND GARGLE MOUTH WITH WATER AFTER EACH USE. (Patient not taking: Reported on 09/29/2023) ALLERGIES: ALLERGIES No Known Allergies VITALS: BP 110/90 Pulse 119 Temp 36.6 C (97.9 F) Resp 21 Wt 96.1 kg (211 lb 13.8 oz) LMP 07/15/2020 SpO2 99% BMI 40.03 kg/m PHYSICAL EXAM: GEN: pleasant, alert, no acute distress FOOT/ANKLE: left. Minimal swelling anterior calcaneus. No erythema, ecchymosis, or deformity. Range of motion: inversion - non-painful, eversion - non-painful, anterior drawer- non-painful. Able to bear weight. normal gait. Palpation: Medial malleolus non-painful, lateral malleolus non-painful, Dorsal proximal midfoot - non-painful, proximal 5th metatarsal non-painful, posterior calcaneus uncomfortable, anterior-inferior and medial-anterior calcaneus are tender to palpation. ASSESSMENT/PLAN: 1. Pain of left heel - ICD9: 729.5, ICD10: M79.672 - XR CALCANEUS 2V AXIAL/LAT LEFT -no obvious fractures or spurs. Radiology interpretation is pending. The patient will be notified if there is a significant finding in the report not discussed at thetime of the visit. Suspect plantar fasciitis. Continue supportive care treatment. - CONSULT TO PODIATRY Change from aleve to - MELOXICAM 15 MG TABLET to reduce gastric irritation. Silvestre Diana MD documented in this encounterSt[facility]06-[facility]24 NoteHNO ID: [id number] Author: DEBORAH TOBAR APRN.LYFT DRIVER Service: ? Author Type: Nurse Practitioner Type: Progress Notes Filed: 08/26/2023 09:58 Note Text: Subjective Dental Problem Pertinent negatives include no chills, fever, headaches, rash or sore throat. Stella Collins is a 33 year old female who presents with left lower molar pain. She was chewing gum yesterday when a piece of the tooth broke off. She denies ear pain or fever. She does not currently have a dentist as she just moved to [facility]. She rates her pain 09/20. Review of Systems Constitutional: Negative for chills and fever. HENT: Negative for ear pain and sore throat. See HPI Skin: Negative for itching and rash. Neurological: Negative for headaches. BP 158/82 Pulse (!) 124 Temp 36.4 ?C (97.6 ?F) Resp 18 Wt 96.2 kg (212 lb 1.3 oz) LMP 07/15/2020 SpO2 97% BMI 40.07 kg/m? PAST MEDICAL HISTORY Diagnosis Date Anemia WITH Anxiety and depression 09/07/2021 PAST SURGICAL HISTORY Procedure Laterality Date CARPAL TUNNEL 2017 right hand DELIVERY ONLY 2010 , low transverse DELIVERY ONLY 11/06/13 , low transverse DELIVERY ONLY 06/18/2019 RC/S low transverse NEXPLANON INSERTION 12/28/2013 removed TUBAL LIGATION Bilateral 06/18/2019 ALLERGIES Patient has no known allergies. MEDICATIONS REXULTI 0.5 mg tablet Take 0.5 mg by mouth once daily. ondansetron orally disintegrating (ZOFRAN ODT) 4 mg disintegrating tablet Take 1 tablet by mouth every 8 hours as needed for nausea/vomiting. hydrOXYzine HCl (ATARAX) 25 mg tablet Take [...] every 6 hours as needed for pain. fluticasone-salmeterol (ADVAIR DISKUS) 250-50 mcg/dose inhaler Inhale 1 Puff as instructed twice daily. RINSE AND GARGLE MOUTH WITH WATER AFTER EACH USE. amoxicillin (AMOXIL) 875 mg tablet Take 1 tablet by mouth two times a day for 10 days. fluconazole (DIFLUCAN) 150 mg tablet Take 1 tablet by mouth one time only for 1 dose. Repeat in 3 days as needed. albuterol HFA (VENTOLIN HFA) 90 mcg/actuation inhaler [...] note reviewed. Constitutional: Appearance: Normal appearance. HENT: Mouth/Throat: Cardiovascular: Rate and Rhythm: Normal rate. Pulmonary: Effort: Pulmonary effort is normal. Skin: General: Skin is warm and dry. Findings: No erythema or rash. Neurological: Mental Status: She is alert. ASSESSMENT/PLAN: 1. Pain, dental - ICD9: 525.9, ICD10: K08.89 (primary diagnosis) - AMOXICILLIN 875 MG TABLET 2. Feared condition not demonstrated - ICD9: V65.5, ICD10: Z71.1 - patient states she gets vaginal yeast infection with antibiotic use - FLUCONAZOLE 150 MG TABLET - Follow-up with your DENTIST JULIANE - Discussed red flags and need for immediate medical evaluation if any occur. - Discussed supportive care treatment with fluids, rest and analgesia. - Discussed expected course of illness Deborah Tobar APRN.[facility]06-14-2024 History of Present illness Narrative* Deborah Tobar APRN.LYFT DRIVER - 08/26/2023 9:52 AM EDT Images from the original note were not included. Subjective Dental Problem Pertinent negatives include no chills, fever, headaches, rash or sore throat. Stella Collins is a 33 year old female who presents with left lower molar pain. She was chewing gum yesterday when a piece of the tooth broke off. She denies ear pain or fever. She does not currently have a dentist as she just moved to [facility]. She rates her pain 7/10. Review of Systems Constitutional: Negative for chills and fever. HENT: Negative for ear pain and sore throat. See HPI Skin: Negative for itching and rash. Neurological: Negative for headaches. BP 158/82 Pulse (!) 124 Temp 36.4 C (97.6 F) Resp 18 Wt 96.2 kg (212 lb 1.3 oz) LMP 07/15/2020 SpO2 97% BMI 40.07 kg/m PAST MEDICAL HISTORY Diagnosis Date Anemia WITH Anxiety and depression 09/07/2021 PAST SURGICAL HISTORY Procedure Laterality Date CARPAL TUNNEL 2017 right hand DELIVERY ONLY 2010 , low transverse DELIVERY ONLY 11/06/13 , low transverse DELIVERY ONLY 06/18/2019 RC/S low transverse NEXPLANON INSERTION 12/28/2013 removed TUBAL LIGATION Bilateral 06/18/2019 ALLERGIES Patient has no known allergies. MEDICATIONS REXULTI 0.5 mg tablet Take 0.5 mg by mouth once daily. ondansetron orally disintegrating (ZOFRAN ODT) 4 mg disintegrating tablet Take 1 tablet by mouth every 8 hours as needed for nausea/vomiting. hydrOXYzine HCl (ATARAX) 25 mg tablet Take [...] every 6 hours as needed for pain. fluticasone-salmeterol (ADVAIR DISKUS) 250-50 mcg/dose inhaler Inhale 1 Puff as instructed twice daily. RINSE AND GARGLE MOUTH WITH WATER AFTER EACH USE. amoxicillin (AMOXIL) 875 mg tablet Take 1 tablet by mouth two times a day for 10 days. fluconazole (DIFLUCAN) 150 mg tablet Take 1 tablet by mouth one time only for 1 dose. Repeat in 3 days as needed. albuterol HFA (VENTOLIN HFA) 90 mcg/actuation inhaler Inhale 2 Puffs as instructed every 4 hours asneeded for wheezing/shortness of breath. etonogestrel (NEXPLANON) subdermal [...] note reviewed. Constitutional: Appearance: Normal appearance. HENT: Mouth/Throat: Cardiovascular: Rate and Rhythm: Normal rate. Pulmonary: Effort: Pulmonary effort is normal. Skin: General: Skin is warm and dry. Findings: No erythema or rash. Neurological: Mental Status: She is alert. ASSESSMENT/PLAN: 1. Pain, dental - ICD9: 525.9, ICD10: K08.89 (primary diagnosis) - AMOXICILLIN 875 MG TABLET 2. Feared condition not demonstrated - ICD9: V65.5, ICD10: Z71.1 - patient states she gets vaginal yeast infection with antibiotic use - FLUCONAZOLE 150 MG TABLET - Follow-up with your DENTIST JULIANE - Discussed red flags and need for immediate medical evaluation if any occur. - Discussed supportive care treatment with fluids, rest and analgesia. - Discussed expected course of illness Deborah Tobar APRN.CNP documented in this encounterSt. [facility]06-14-[facility]24 Instructions* Patient Instructions* Deborah Tobar APRN.CNP - 08/26/2023 9:52 AM EDT ASSESSMENT/PLAN: 1. Pain, dental - ICD9: 525.9, ICD10: K08.89 (primary diagnosis) - AMOXICILLIN 875 MG TABLET 2. Feared condition not demonstrated - ICD9: V65.5, ICD10: Z71.1 - patient states she gets vaginal yeast infection with antibiotic use - FLUCONAZOLE 150 MG TABLET - Follow-up with your DENTIST JULIANE - Discussed red flags and need for immediate medical evaluation if any occur. - Discussed supportive care treatment with fluids, rest and analgesia. - Discussed expected course of illness Deborah Tobar APRN.CNP TOOTHACHE: Your exam shows that your toothache is probably due to tooth decay and infection. Poor dental care is the main cause of this problem. Swelling and redness around a painful tooth often means you have a dental abscess. Pain medicine and antibiotics can help reduce symptoms, but you will need to see a dentist within the next few days to have your problem properly treated. Fillings or root canal work may be needed tosave your tooth. If the problem is severe, your tooth may need to be pulled. Please return here right away if you have a fever over 101F, can t swallow, or develop severe swelling. documented in this encounterSt. [facility]05-[facility]-2024 NoteHNO ID: [id number] Author: DELIA ABRAMS APRN.LYFT DRIVER Service: ? Author Type: Nurse Practitioner Type: Progress Notes Filed: 07/22/2023 19:36 Note Text: Subjective Came in with complaints of neck and shoulder pain. Patient says she has had a couple days. Patient says Tylenol does not alleviate the pain. Patient says she slept on a couch wrong. Patient denies any numbness tingling or loss of feeling. Patient denies any shortness of breath chest pain or pressure. The history is provided by the patient. No specialized language instructor was used. Review of Systems Constitutional: Negative. Skin: Negative. Objective Physical Exam Constitutional: Appearance: Normal appearance. Pulmonary: Effort: Pulmonary effort is normal. Skin: Comments: Patient said the pain is in the areas marked above. They are tender to palpate. Empty can test is negative scratch test is negative patient can lift her arm with no limited range of motion. Neurological: Mental Status: She is alert. PAST MEDICAL HISTORY Diagnosis Date Anemia WITH Anxiety and depression 09/07/2021 PAST SURGICAL HISTORY Procedure Laterality Date CARPAL TUNNEL 2017 right hand DELIVERY ONLY 2010 , low transverse DELIVERY ONLY 11/06/13 , low transverse DELIVERY ONLY 06/18/2019 RC/S low transverse NEXPLANON INSERTION 12/28/2013 removed TUBAL LIGATION Bilateral 06/18/2019 ALLERGIES Patient has no known allergies. MEDICATIONS REXULTI 0.5 mg tablet Take 0.5 mg by mouth once daily. hydrOXYzine HCl (ATARAX) 25 mg tablet [...] mg by mouth two times a day.) etonogestrel (NEXPLANON) subdermal implant 68 mg 1 Each by SUBDERMAL route as directed. predniSONE (DELTASONE) 10 mg tablet Take 4 tabs daily for 3 days, then 2 tabs daily for 3 days, then 1 tab daily for 3 days with food. ondansetron orally disintegrating (ZOFRAN ODT) 4 mg disintegrating tablet Take 1 tablet by mouth every 8 hours as needed for nausea/vomiting. (Patient not taking: Reported on 07/22/2023) ibuprofen (MOTRIN) 600 mg tablet Take 1 tablet by mouth every 6 hours as needed for pain. (Patient not taking: Reported on 04/05/2023) albuterol HFA (VENTOLIN HFA) 90 mcg/actuation inhaler Inhale 2 Puffs as instructed every 4 hours as needed for wheezing/shortness of breath. fluticasone-salmeterol (ADVAIR DISKUS) 250-50 mcg/dose inhaler Inhale [...] use: No Drug use: No ASSESSMENT/PLAN: 1. Muscle pain - ICD9: 729.1, ICD10: M79.10 (primary diagnosis) - PREDNISONE 10 MG TABLET 2. Pain - ICD9: 780.96, ICD10: R52 - XR SHOULDER GENERAL 3V OR MORE AP/TRUE AP/OTHER LEFT Will come back Tuesday for x-ray. Patient was educated to take Tylenol rest and ice. Patient was okay with this care plan and red flag symptoms were discussed with patient if anything changes or worsens patient will go to the emergency room. Delia Abrams APRN.[facility]05-10-2024 History of Present illness Narrative* Delia Abrams APRN.LYFT DRIVER - 07/22/2023 7:28 PM EDT Images from the original note were not included. Subjective Came in with complaints of neck and shoulder pain. Patient says she has had a couple days. Patient says Tylenol does not alleviate the pain. Patient says she slept on a couch wrong. Patient denies any numbness tingling or loss of feeling. Patient denies any shortness of breath chest pain or pressure. The history is provided by the patient. No specialized language instructor was used. Review of Systems Constitutional: Negative. Skin: Negative. Objective Physical Exam Constitutional: Appearance: Normal appearance. Pulmonary: Effort: Pulmonary effort is normal. Skin: Comments: Patient said the pain is in the areas marked above. They are tender to palpate. Empty cantest is negative scratch test is negative patient can lift her arm with no limited range of motion. Neurological: Mental Status: She is alert. PAST MEDICAL HISTORY Diagnosis Date Anemia WITH Anxiety and depression 09/07/2021 PAST SURGICAL HISTORY Procedure Laterality Date CARPAL TUNNEL 2017 right hand DELIVERY ONLY 2010 , low transverse DELIVERY ONLY 11/06/13 , low transverse DELIVERY ONLY 06/18/2019 RC/S low transverse NEXPLANON INSERTION 12/28/2013 removed TUBAL LIGATION Bilateral 06/18/2019 ALLERGIES Patient has no known allergies. MEDICATIONS REXULTI 0.5 mg tablet Take 0.5 mg by mouth once daily. hydrOXYzine HCl (ATARAX) 25 mg tablet [...] mg by mouth two times a day.) etonogestrel (NEXPLANON) subdermal implant 68 mg 1 Each by SUBDERMAL route as directed. predniSONE (DELTASONE) 10 mg tablet Take 4 tabs daily for 3 days, then 2 tabs daily for 3 days, then 1 tab daily for 3 days with food. ondansetron orally disintegrating (ZOFRAN ODT) 4 mg disintegrating tablet Take 1 tablet by mouth every 8 hours as needed for nausea/vomiting. (Patient not taking: Reported on 07/22/2023) ibuprofen (MOTRIN) 600 mg tablet Take 1 tablet by mouth every 6 hours as needed for pain. (Patient not taking: Reported on 04/05/2023) albuterol HFA (VENTOLIN HFA) 90 mcg/actuation inhaler Inhale 2 Puffs as instructed every 4 hours asneeded for wheezing/shortness of breath. fluticasone-salmeterol (ADVAIR DISKUS) 250-50 mcg/dose inhaler Inhale [...] use: No Drug use: No ASSESSMENT/PLAN: 1. Muscle pain - ICD9: 729.1, ICD10: M79.10 (primary diagnosis) - PREDNISONE 10 MG TABLET 2. Pain - ICD9: 780.96, ICD10: R52 - XR SHOULDER GENERAL 3V OR MORE AP/TRUE AP/OTHER LEFT Will come back Tuesday for x-ray. Patient was educated to take Tylenol rest and ice. Patient was okay with this care plan and red flag symptoms were discussed with patient if anything changes or worsens patient will go to the emergency room. Delia Abrams APRN.LYFT DRIVER documented in this encounterSt. [facility]03-29-[facility]24 Procedure [facility]03-29-2024 Procedure [facility]03-21-2024 History of Present illness Narrative* Arline Montano RDMS - 06/02/2023 8:30 AM EDT Radiology Service Progress Note PATIENT NAME: Stella Collins DATE OF SERVICE: June 02, 2023 TIME: 11:31 AM PATIENT IDENTITY VERIFICATION COMPLETED USING TWO (2) IDENTIFIERS: Name and Date of confirmedby patient verbally. FALL SCREENING: Has the patient had 2 falls in the last year or 1 fall with injury or currently using an Ambulatory Assistive Device (Walker, Cane, Wheelchair, Crutches, etc.)? No PATIENT GENDER DATA: Female. status: : No status: NO. PATIENT RELEVANT IMPLANT DATA REVIEWED: Not Applicable PATIENT PRESENTS WITH AN IMPLANTABLE OR ATTACHED SENIOR ORACLE PL SQL DEVELOPER: No RADIOLOGY DEPARTMENT: Ultrasound PERIPHERAL IV DATA: Not applicable SIGNED BY: Arline Montano RDMS RVT June 02, 2023 11:31 AM documented in this encounterSt. [facility] Hospital03-19-2024 Miscellaneous Notes* Telephone Encounter - Kylah Bazzi Ma - 05/31/2023 2:29 PM EDT Please review pt message. Last Rx dispensed shows 03/09/23. Does pt need to reach out to Psych to obtain refills. Kylah Bazzi Ma documented in this encounterSt. Elizabeth Hospital03-12-2024 History of Present illness Narrative* Ruben Jain PA - 05/24/2023 5:59 PM EDT This note was created using Medpre[employer]. Subjective Stella Collins is a 32 year old female. HPI 32-year-old female presents for nausea starting this morning. Patient states she got up today and felt nauseous. She has not had any vomiting. No diarrhea. No concern for . She has Nexplanon implant. She states that she has history of gastric ulcer and is scheduled for a upper endoscopy later this month. She states that occasionally her GERD flares up and she gets nauseous. She is onProtonix, sucralfate and has taken an acids. States that she does not have any more pain than normal, but just feels nauseous. No fevers, cough, congestion or other URI symptoms. No urinary symptoms.No abdominal pain currently. No other complaint. Review of Systems Constitutional: Negative for chills and fever. HENT: Negative for congestion, ear pain and sore throat. Respiratory: Negative for cough and shortness of breath. Cardiovascular: Negative for chest pain. Gastrointestinal: Positive for nausea. Negative for abdominal pain, blood in stool, diarrhea and vomiting. Objective BP 128/84 Pulse 106 Temp 36.9 C (98.5 F) Resp 16 Wt 90.8 kg (200 lb 2.8 oz) LMP 07/15/2020 SpO2 100% BMI 37.82 kg/m Physical Exam Vitals and nursing note reviewed. Constitutional: General: She is not in acute distress. Appearance: Normal appearance. She is not toxic-appearing. HENT: Nose: Nose normal. Mouth/Throat: Mouth: Mucous membranes are moist. Eyes: Conjunctiva/sclera: Conjunctivae normal. Cardiovascular: Rate and Rhythm: Normal rate and regular rhythm. Pulmonary: Effort: Pulmonary effort is normal. Breath sounds: Normal breath sounds. Abdominal: General: Abdomen is flat. Palpations: Abdomen is soft. Tenderness: There is no abdominal tenderness. There is no guarding or rebound. Skin: General: Skin is warm and dry. Neurological: Mental Status: She is alert. Assessment and Plan ASSESSMENT/PLAN: 1. Nausea - ICD9: 787.02, ICD10: R11.0 -Patient reports nausea with her GERD/gastric ulcer. She has an endoscopy scheduled at the end of this month. -No abdominal pain currently. States she gets intermittent abdominal pain with her GERD, but has not had any out of the ordinary recently. -Patient already on Protonix, sucralfate and an acids. -Rx for Zofran as needed for nausea given. -Advised if she develops any abdominal pain, intractable vomiting, hematemesis, blood in the stool,needs to be seen in ER. She understands. -Declines test, no concern for . Diagnosis and treatment plan were discussed and questions were answered to the patient's satisfaction. Pt acknowledged understanding of concepts and follow up plan. Specific signs and symptoms that would indicate the need for higher level of care were discussed in detail warranting prompt ER evaluation. CIELO Josue documented in this encounterSt. [facility] Hospital03-11-2024 History of Present illness Narrative* Amy Pineda MD - 05/23/2023 10:00 AM EDT Container Repairer offered: Patient declines. HPI: Stella Mckeon is a 32 year old female who presents for abnormal bleeding and right sided pelvicpain. Patient reports spotting of dark blood and occasional small blood clots which started 3 weeksago. Intermediate right sided pain which started 3-4 months ago, rated 5/10, denies current pain, no associated nausea and vomiting. Reports pain associated with intercourse and bleeding after intercourse. Nexplanon for control, tolerating well. Went to ED 05/05 for epigastric pain, CT abd/pelvis discovered incidental ovarian cyst that was approximately 3cm. Pt reports no other concerns today. Pt reports menses are always sporadic. 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 (Patient not taking: Reported on 04/05/2023) albuterol HFA (VENTOLIN HFA) 90 mcg/actuation inhaler Inhale 2 Puffs as instructed every 4 hours asneeded for wheezing/shortness of breath. fluticasone-salmeterol (ADVAIR DISKUS) 250-50 mcg/dose inhaler Inhale 1 Puff as instructed twice daily. RINSE AND GARGLE MOUTH WITH WATER AFTER EACH USE. (Patient not taking: Reported on 02/24/2023) etonogestrel (NEXPLANON) subdermal implant 68 mg 1 Each by SUBDERMAL route as directed. No current facility-administered medications for this visit. Allergies As of Date: 05/23/2023 (No Known Allergies) Fully Assessed 04/05/2023 REVIEW OF SYSTEMS Abdomen: No bloating, early satiety, indigestion, or increased flatulence. No abdominal pain, nausea, vomiting, diarrhea, or constipation. Bladder: No dysuria, gross hematuria, urinary frequency, urinary urgency, or incontinence. Expanded ROS: negative weight loss Allergies and current medication updated:Yes EXAM: BP 144/82 Wt 200 lb (90.7kg) LMP 07/15/2020 GENERAL: pleasant, female in no apparent distress HEENT: Normocephalic, atraumatic, mucus membranes moist, and no lesions NECK: Supple and full range of motion DERMATOLOGY: Normal and without lesions ABDOMEN: soft, no masses, Mild tenderness in RLQ, rebound Absent, and guarding Absent PELVIC: external genitalia normal, normal Bartholin's glands, urethra, [place]'s glands, no vulvar lesions, no cervical lesions, good vaginal support, physiologic discharge present, normal appearing perineal body and perianal region, no blood in vault BIMANUAL: uterus normal size, shape and consistency, mild tenderness, and fullness on right. NEURO: alert and oriented x3,exam grossly non-focal EXTREMITIES: normal ASSESSMENT AND PLAN: Encounter Diagnosis ICD-10-CM 1. Ovarian cyst, right N83.201 US FEMALE PELVIS TRANSVAG PELVIC US WHI 2. Pelvic pain in female R10.2 3. Abnormal uterine bleeding (AUB) N93.[address] Z97.5 5. Discussed ibuprofen for AUB vs estradiol - if fails discussed changing to Mirena or oral progesterone. 6. Will call with results of ultrasound 7. Er visit notes and , RUQ us and CT results reviewed Medical Decision Making: Problems: Moderate: New problem with uncertain prognosis Data: Unique test result(s) reviewed: 3+ Unique test(s) ordered: 1 Medical Decision Making Level: 4 - Moderate Amy Block MD documented in this encounterSt. [facility] Hospital12-14-2023 History of Present illness Narrative* Abeba Chase, WEALTH MANAGEMENT MANAGER.EQUIPMENT OPERATOR INTERMODAL YARD - 02/24/2023 10:20 AM EST SUBJECTIVE: Pneumococcal Vaccine(1 - PCV) Never done HPV Vaccine(3 - 3-dose SCDM series) due on 10/04/2022 Influenza Vaccine(1) due on 11/12/2022 Covid-19 Vaccine(3 - 2022-24 season) due on 11/12/2022 HPI Stella Collins is a 32 year old female. PMH significant for ACTIVE PROBLEM LIST Obesity, Class Iii, Bmi 40-49.9 (Morbid Obesity) (Hcc) Pain in Right Knee Chronic Right-Sided Low Back Pain With Right-Sided Sciatica Carpal Tunnel Syndrome of Right Wrist Anxiety and Depression PCP: Isma Almanza MD Presents today with concern regarding weight, would like to resume phentermine which she has taken in the past for weight loss. Last prescribed in March 2022 per Isma Almanza MD She reports she did well [...] HENT: Head: Normocephalic and atraumatic. Mouth/Throat: Lips: [place] 7. Eyes: Conjunctiva/sclera: Conjunctivae normal. Cardiovascular: Rate and [...] 2 Puffs as instructed every 4 hours asneeded for wheezing/shortness of breath. etonogestrel (NEXPLANON) subdermal [...] Lymph 1.00 - 4.00 k/uL 6.12 (H) Nash% % 5.0 Abs Nash <0.87 k/uL 0.64 Eosin% % 4.0 Abs [...] Mucor racemosus Class Class 0 Class 0 Maya albicans IgE <0.35 kU/l <0.35 Maya albicans Class Class 0 Class 0 Alternaria [...] to have an initial BMI>30 or >27 withthe listed comorbid factors) need to assess at least once every three months and obtain weight, blood pressure, and heart rate not to continue therapy if have not achieved a weight loss of at least 5% of initial weight, duringthe initial three month period Recheck in 3 months Abeba Chase APRN.EQUIPMENT OPERATOR INTERMODAL YARD Medical Decision Making: Problems: Low: Acute, uncomplicated illness or injury Risk: Moderate: Drug management Medical Decision Making Level: 3 - Low documented in this encounterSt. [facility] Hospital11-20-2023 Miscellaneous Notes* Telephone Encounter - Pallavi Orellana RN - 01/31/2023 8:54 AM EST Patient called and notified of below. Patient voices understanding. Pallavi Orellana RN * Telephone Encounter - Mónica Freeman OCCA - 01/31/2023 8:30 AM EST TC to patient with no answer. Left VM to return call to office regarding refill request. CARLOS Liu * Telephone Encounter - Mavis Swann MD - 01/30/2023 12:34 AM EST Will get more refills when seen for February follow up Okayed RXs * Telephone Encounter - Waqar Rutherford - 01/28/2023 9:07 AM EST Patient has been identified by name and [...] and advise. Waqar Rutherford documented in this encounterSt. [facility] Hospital10-13-2023 Miscellaneous Notes* Telephone Encounter - Laurita Ba - 12/24/2022 9:02 AM EDT Patient declined to schedule stated she will ask her PCP for this medication * Telephone Encounter - Toña Sy PA-C - 12/22/2022 9:53 AM EDT Patient needs an appointment. Last appt in July 2021 * Telephone Encounter - Maria Victoira Lan LPN - 12/22/2022 9:50 AM EDT Patient phones requesting refills as follows: JULIA: 07/14/21 Requested Prescriptions Pending Prescriptions Disp Refills pantoprazole DR (PROTONIX) 40 mg tablet 30 tablet 5 Sig: Take 1 tablet by mouth once daily. Please review and advise. Maria Victoria Lan LPN documented in this encounterSt. Elizabeth Hospital10-13-2023 Miscellaneous Notes* Telephone Encounter - Maria Victoria Lan LPN - 12/24/2022 8:57 AM EDT Duplicate request. Patient needs appt per [place]. Maria Victoria Lan LPN documented in this encounterSt. [facility] Hospital09-18-2023 History of Present illness Narrative* Tom Morocho RT(R) - 11/29/2022 3:20 PM EDT Radiology Service Progress Note PATIENT NAME: Stella Collins DATE OF SERVICE: November 29, 2022 TIME: 3:17 PM PATIENT IDENTITY VERIFICATION COMPLETED USING TWO (2) IDENTIFIERS: Name and Date of confirmedby patient verbally. FALL SCREENING: Has the patient [...] RT Hernandez(R) November 29, 2022 3:17 PM documented in this encounterSt. Elizabeth Hospital09-18-2023 History of Present illness Narrative* Antonette Rowell APRN.ANKIT - 11/29/2022 3:09 PM EDT Subjective HPI HPI Stella Collins is a 32 year old female who [...] daily as needed (anxiety) for up to 90days. cyclobenzaprine (FLEXERIL) 5 mg tablet Take 1-2 tablets by mouth three times daily. ibuprofen (MOTRIN) 600 mg tablet Take 1 tablet by mouth every 6 hours as needed for pain. montelukast (SINGULAIR) 10 mg tablet Take 1 tablet by mouth daily at bedtime. albuterol HFA (VENTOLIN HFA) 90 mcg/actuation inhaler Inhale 2 Puffs as instructed every 4 hours asneeded for wheezing/shortness of breath. pantoprazole DR (PROTONIX) [...] abnormalities. Dictated by : MD Antonette BARNES APRN.ANKIT documented in this encounterSt. Elizabeth Hospital09-01-2023 Instructions* Patient Instructions* Krupa Ku APRN.CNP - 11/12/2022 11:14 AM EDT Once starting prozac every other day, start the daily effexor documented in this encounterSt. Elizabeth Hospital09-01-2023 History of Present illness Narrative* Krupa Ku APRN.CNP - 11/12/2022 11:02 AM EDT Chief Complaint Patient presents with: Recheck: Follow up HPI Stella Collins is a 32 year old female who presents here today for anxiety and depression follow-up. Patient was seen 3 months ago by PCP and had buspar increased.. Patient reports uncontrolled depression and anxiety. Still with intense panic attacks every other week. Is going to counseling at [facility]. Side effects: None Denies suicidal thoughts or plan. Originally was on lexapro but experienced weight gain so switched to prozac last fall. Is taking 10mg buspar TID which has helped her anxiety. Is needing to use the ativan once every two weeks. 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 cyclobenzaprine (FLEXERIL) 5 mg tablet Take 1-2 tablets by mouth three times daily. ibuprofen (MOTRIN) 600 mg tablet Take 1 tablet by mouth every 6 hours as needed for pain. FLUoxetine (PROZAC) 20 mg capsule Take 1 capsule by mouth once daily. Take 1 pill daily for 14 daysand then increase to 2 pills a day busPIRone (BUSPAR) 5 mg tablet Take 1 to 2 tablets upto 3 times a day montelukast (SINGULAIR) 10 mg tablet Take 1 tablet by mouth daily at bedtime. albuterol HFA (VENTOLIN HFA) 90 mcg/actuation inhaler Inhale 2 Puffs as instructed every 4 hours asneeded for wheezing/shortness of breath. pantoprazole DR (PROTONIX) [...] - Instructed patient to contact office or [id number] after-hours promptly should condition worsen or any new symptoms appear. - Counseling Center [facility] and after hours crisis line 2. Panic attacks - ICD9: 300.01, ICD10: F41.0 As above Hydroxyzine as ordered. Prescription instructions reviewed with patient as applicable. Potential red flag symptoms discussed with the patient. Reviewed appropriate action plan to take if red flag symptoms occur. Patient agreeable to treatment plan Krupa Ku APRN.CNP documented in this encounterSt. Elizabeth Hospital08-25-2023 Miscellaneous Notes* Telephone Encounter - Britney Salas LPN - 11/05/2022 8:47 AM EDT Detailed VM left on pt's identified voicemail of information below. Britney Salas LPN * Telephone Encounter - Krupa Ku APRN.CNP - 11/05/2022 7:24 AM EDT Small amount refilled. Can discuss further at follow up appointment.. Thank you Krupa Ku APRN.CNP PDMP website checked and validated. All prescriptions have been APPROPRIATELY filled. No suspiciousactivity was identified. 11/05/2022 by Krupa Ku APRN.CNP * Telephone Encounter - Britney Salas LPN - 11/04/2022 1:38 PM EDT Spoke with pt and information listed below given. Pt reports she uses the Ativan may 3 to 4 times in the past month. She only takes this if she is having a bad day. Pt is out and asking to have this on hand. Pt has apt on 11-12-22 with Krupa Ku and also has an apt with a psychiatrist in December some time. Please review and advise pt. Britney Salas LPN * Telephone Encounter - Krupa Ku APRN.CNP - 11/03/2022 6:37 PM EDT This was to be used short term until her buspar was helping. Has been on buspar for 6 months with reported improvement and increase in dose. If her anxiety is improving she should not need the lorazepam often or at all. If she is still needing this often, we need a follow up to further evaluate heranxiety. Thank you Krupa Ku APRN.ANKIT * Telephone Encounter - Breanna Willams LPN - 11/02/2022 9:19 AM EDT Patient has been identified by name and [...] you. Breanna Willams LPN documented in this encounterSt. Elizabeth Hospital08-22-2023 Miscellaneous Notes* Telephone Encounter - Mary Avila LPN - 11/02/2022 8:21 AM EDT See mychart refill request. Pt was last seen in the office on 03/30/22. Please advise. Mary Avila LPN documented in this encounterSt. Elizabeth Hospital05-04-2023 History of Present illness Narrative* Antonette Rowell APRN.ANKIT - 07/15/2022 6:18 PM EDT Patient tri[facility] at [facility]. Here today with severe anxiety, crying. Reports is on many medication for this and they are not working. At time of triage this is after office hours. I will refer patient to ER. Family to drive pov to [facility] ER. documented in this encounterSt. Elizabeth Hospital05-01-2023 History of Present illness Narrative* Isma Almanza MD - 07/12/2022 12:15 PM EDT Reason for Visit Patient presents with: Follow Up: 3 month follow up-weight Stella Collins is a 31 year old female who [...] F) Resp 12 Ht 154.9 cm (5' 1) Wt 77.1 kg (170 lb) LMP 07/15/2020 [...] Z23 - HPV VACCINE, 9-VALENT (GARDASIL 9) Isma Almanza MD documented in this encounterSt. Elizabeth Hospital04-17-2023 Miscellaneous Notes* Telephone Encounter - Cleo Suazo RN - 06/28/2022 5:56 PM EDT Patient called in for refill of Lorazepam. Advised she has one refill available at pharmacy. Cleo Suazo, RN documented in this encounterSt. Elizabeth Hospital04-17-2023 Miscellaneous Notes* Telephone Encounter - Maria Victoria Lan LPN - 06/28/2022 8:24 AM EDT Patient phones requesting refills as follows: Requested Prescriptions Pending Prescriptions Disp Refills montelukast (SINGULAIR) 10 mg tablet 30 tablet 5 Sig: Take 1 tablet by mouth daily at bedtime. Please review and advise. Maria Victoria Lan LPN documented in this encounterSt. Elizabeth Hospital04-12-2023 History of Present illness Narrative* Cintia Hanley APRN.LYFT DRIVER - 06/23/2022 6:51 PM EDT Chief Complaint Patient presents with: Physical: Work physical with TB test (blood work is ok) HPI Stella Collins is a 31 year old female who [...] reassess this on July [address] Almnaza. Last 14 Encounter BP Readings: Date: BP: [...] daily as needed (anxiety) for up to 90days. cyclobenzaprine (FLEXERIL) 5 mg tablet Take 1-2 tablets by mouth three times daily. FLUoxetine (PROZAC) 20 mg capsule Take 1 pill daily for 14 days and then increase to 2 pills a day albuterol HFA (VENTOLIN HFA) 90 mcg/actuation inhaler Inhale 2 Puffs as instructed every 4 hours asneeded for wheezing/shortness of breath. montelukast (SINGULAIR) 10 [...] 138/88 Pulse 95 Ht 154.9 cm (5' 1) Wt 79.8 kg (176 lb) LMP 07/15/2020 [...] and extension, good range of motion, no muscletenderness, reflexes are 2+ and symmetric, motor and [...] diet of 1000 mg/day for under 50, 1200- 1500 mg/day for 50+ - Smoking cessation encouraged; [...] symptoms occur. Patient agreeable to treatment plan. Cintia Rios APRN.LYFT DRIVER [address] [place] [address] documented in this encounterSt. Elizabeth Hospital03-29-2023 History of Present illness Narrative* Deborah Tobar APRN.CNP - 06/09/2022 8:03 PM EDT Subjective HPI Stella Collins is a 31 year old female who [...] daily as needed (anxiety) for up to 90days. cyclobenzaprine (FLEXERIL) 5 mg tablet Take 1-2 [...] 2 Puffs as instructed every 4 hours asneeded for wheezing/shortness of breath. FAMILY HISTORY Problem [...] illness Deborah Tobar APRN.CNP documented in this encounterSt. Elizabeth Hospital03-29-2023 Instructions* Patient Instructions* Deborah Tobar APRN.CNP - 06/09/2022 8:02 PM [...] the most common cause of sore throat, bacteriaare another common cause. Bacteria and viruses are spread from one person to another through hand contact. Hands get contaminated when the sick individual touches their nose or mouth and then touchesanother person directly (tyos-bl-lhop contact) or indirectly (nppv-qh-quvhlz, such as doorknob, telephone, toys). It is difficult to determine the cause of sore throat based upon symptoms alone; an examination andlaboratory test are recommended in most cases Viruses - There are many viruses that can cause pain and swelling of the throat. The most common include viruses that cause sore throat as part of an upper respiratory infection, such as the common cold. Other viruses that cause sore throat include influenza, adenovirus, and Vita-Simpson virus (thecause of mononucleosis). Symptoms - Symptoms that may [...] in the back or sides of the throat,small red spots on the roof of the [...] than 1 year may be fussy and havea decreased appetite and low-grade fever. SORE THROAT [...] is important for the child to finish theentire course of treatment (usually 10 days). If [...] reduce the risk of dehydration, parents can offerwarm or cold liquids. (See 'Other interventions' below.) Signs and symptoms of mild dehydration include a slightly dry mouth, increased thirst, and decreased urine output (one wet diaper or void in six hours). Signs of moderate or severe dehydration include decreased urine output (less than one wet diaper or void in six hours), lack of tears when crying,dry mouth, and sunken eyes. A child who is moderately or severely dehydrated should be evaluated by a healthcare provider as soon as possible to determine if treatment is needed. Oral rinses- Salt-water gargles are an old stand-by for relief of throat pain. It is not clear if this treatmentis effective, but it is unlikely to be [...] hard candy. We do not recommend throat lozengesfor children, especially children younger than 3 to [...] fingernails, between the fingers, and the wrists. Handsshould be rinsed thoroughly, and dried with a [...] secretions and has the advantage of not co ntaminating the hands. WHEN TO SEEK HELP - Parents of a child with throat pain and one or more of the following should contact their healthcare provider immediately: Difficulty swallowing or breathing Excessive drooling in an infant or young child Temperature ?101 F or [...] every four months on our web site ([email or web address]/patients). Information below was obtained from Up to date Last literature review version 19.2: July 2010 This topic last updated: October 29, 2009 documented in this encounterSt. [facility]03-[facility] History of Present illness Narrative* Isma Almanza MD - 05/27/2022 11:50 AM EDT Chief Complaint Patient presents with: Anxiety HPI Stella Collins is a 31 year old female who is contacted today for a virtual/telemedicine visit. This is an established patient of Dr. Isma Almanza MD. States her anxiety is not [...] 2 Puffs as instructed every 4 hours asneeded for wheezing/shortness of breath. montelukast (SINGULAIR) 10 [...] itching Neuro: No lightheadedness or dizziness EXAM: [facility] 07/15/2020 Deferred physical exam as visit was [...] needed for anxiety attacks especially when she goesfor court dates and she has a lot of them coming up.- LORAZEPAM 0.5 MG TABLET Follow-up in 6 weeks Isma Almanza MD documented in this encounterSt. [facility] Hospital01-30-2023 History of Present illness Narrative* Isma Almanza MD - 04/12/2022 12:20 PM EST Reason for Visit Patient presents with: Follow Up: 1 month follow up-adipex Stella Collins is a 31 year old female who [...] F) Resp 12 Ht 154.9 cm (5' 1) Wt 83.9 kg (185 lb) LMP 07/15/2020 [...] begin exercising - PHENTERMINE 37.5 MG TABLET Isma Almanza MD documented in this encounterSt. Elizabeth Hospital01-17-2023 Instructions* Patient Instructions* Delfina Ruiz Ma - 03/30/2022 8:44 AM [...] can be some complications. You may feel faintduring and shortly after the procedure as well as have some bleeding and vaginal discharge after the procedure. There is also a risk of infection after the procedure. These complications are rare andcan be easily treated. You should contact you doctor is you have any of the following: - Heavy bleeding (more than your normal period) - Bleeding with clots - Severe abdominal pain - Fever (more than 100.4F) - Foul smelling vaginal discharge RESULTS If a biopsy was taken, we will have the results of your biopsy in 1-2 weeks. If you do not hear theresults of your biopsy after 2 weeks, please [...] number of partners and use condoms to reduceyour risks of STDs. If you have any [...] outside of the vagina) as well as genitalwarts. The vaccine cannot cause these diseases and [...] at 0 and 8 months. In ages 15- 45, three injections are given at 0,2,6 months. Common side effects include pain, redness, itching and swelling at the injection site, nausea, fever, dizziness and fainting. Rare but potentially serious reactions have been reported. These include allergic reaction, swollen glands, joint and muscle pain, weakness and Guillain-[place] syndrome. documented in this encounterSt. [facility] Hospital01-17-2023 History of Present illness Narrative* Amy Darling MD - 03/30/2022 8:42 AM EST Stella is a 31 year old who [...] by name and date of . Stella Collins is here for her HPV 9 vaccination, injection # one of the series. Patient ?No Gardasil injection was given without incident. See immunizations for details of immunizations administered today. VIS sheet provided: Yes Patient advised to follow up in 2 months from the 1st injection Provider Amy Block MD was present in office at time of injection. Delfina Ruiz Ma documented in this encounterSt. Elizabeth Hospital01-11-2023 History of Present illness Narrative* Brianda Lackey - 03/24/2022 11:17 AM EST POPULATION HEALTH NAVIGATION OUTREACH Action/FYI [place] Support: Called pt to schedule an appt in Pain Management. Lvm for pt to call [phone] for scheduling. Pt identified by name and : NO Outreach Outcome/Action Unable to reach patient: left message Did you use a PCP flex slot to schedule this appointment? N/A Reason for Outreach Care Gap or Scheduling/Wellness visits Payer: Payor: [facility] [employer] / Plan: [facility] [employer] / Product Type: Medicaid / Care Gap Reviewed:: Specialty Scheduling Reminder: Reminder note to check Health Maintenance for items below Health Maintenance items due: PNEUMOCOCCAL(1 - PCV) Never done COVID-19 VACCINE(3 - Booster for Moderna series) due on 08/06/2021 Navigation Signature: Brianda Lackey March 24, 2022 11:17 AM documented in this encounterSt. Elizabeth Hospital01-10-2023 Miscellaneous Notes* Telephone Encounter - Christina Dunaway RN - 03/23/2022 4:11 PM EST Patient notified and colposcopy scheduled. [facility] message sent with further information. Christina Dunaway RN * Telephone Encounter - Cleve Cloud RN - 03/23/2022 2:16 PM EST Left message for patient to return phone call * Telephone Encounter - Amy Darling MD - 03/23/2022 1:56 PM EST ordered * Telephone Encounter - Cleve Cloud RN - 03/23/2022 1:[address] Darling, please file order for colpsocopy and then we will call patient * Telephone Encounter - Cleve Cloud RN - 03/23/2022 1:21 PM EST ----- Message from Amyalyssa Darling MD sent at 03/23/2022 1:16 PM EST ----- Pap is normal but notify patient that her HPV is positive. Needs a colposcopy. Please help schedule. documented in this encounterSt. Elizabeth Hospital01-05-2023 History of Present illness Narrative* Amy Darling MD - 03/18/2022 11:36 AM EST Container Repairer offered: Patient declines. Stella Collins is a 31 year old female who presents for c/o Pelvic pain and abnormal bleeding for last 2 months or so. Pt reports has irregular menstrual cycles with nexplanon but for past few months has been having dark black spotting almost daily. Pt reports has been having more pelvic pain thatshe describes as cramping and sharp. Pt reports [...] Denies Dysuria or other concerns. Pt reports hastried mirena previously- did ok and willing to try again. Has not tried ocps but does smoke 1ppd. Pt reports is open to other options for pain and bleeding control. Pt offers no other concerns. OB History T3 L3 SAB0 IAB0 Ectopic0 Multiple0 Live Births3 Branch Billing Payroll Clerk History LMP: 07/15/2020, Implant Age at Menarche: Age at First : Age at Menopause: Branch Billing Payroll Clerk History Comments: Sexual Activity: Yes; Male Contraception: [...] 2 Puffs as instructed every 4 hours asneeded for wheezing/shortness of breath. montelukast (SINGULAIR) 10 [...] external genitalia normal, normal Bartholin's glands, urethra, [place]'s glands, no vulvar lesions, no cervical lesions, [...] R10.2 PELVIC US WHI GC/CHLAMYDIA DNA DET MAYA / TRICHOMONAS AMPLIFICATION BACTERIAL VAGINOSIS AMPLIFICATION 4. Deep dyspareunia N94.12 PELVIC US WHI 5. Abnormal uterine bleeding (AUB) N93.9 PELVIC US WHI GC/CHLAMYDIA DNA DET MAYA / TRICHOMONAS AMPLIFICATION BACTERIAL VAGINOSIS AMPLIFICATION 6. [...] Moderate Amy Block MD documented in this encounterSt. Elizabeth Hospital12-29-2022 History of Present illness Narrative* Krupa Ku, WEALTH MANAGEMENT MANAGER.LYFT DRIVER - 03/11/2022 11:52 AM EST CC: Patient presents with: Recheck: Adipex follow up HPI Stella Collins is a 31 year old female who [...] until appointment. No change in pain or symptomsand denies numbness, weakness, difficulty/loss of bowel/bladder, or any other concerns.. States shehas spasms and her back tightens up sending [...] mental status intact, muscle tone normal, muscle strengthnormal ASSESSMENT/PLAN: 1. Obesity (BMI 30-39.9) - ICD9: 278.00, ICD10: E66.9 (primary diagnosis) Weight decreasing - Behavioral intervention and - Pharmacological intervention - PHENTERMINE 37.5 MG TABLET 2. Weight loss counseling, encounter for - ICD9: V65.3, ICD10: Z71.3 As above 3. Chronic right-sided low back pain with right-sided sciatica - ICD9: 724.2, 724.3, 338.29, ICD10:M54.41, G89.29 - has been assessed by providers and awaiting paim mgmt so not fully evaluated in office today. - naproxen and flexeril as ordered. - go to ER for increased pain, weakness, numbness, difficulty/loss of bowel or bladder or any otherurgent concerns. Prescription instructions reviewed with patient as applicable. Potential red flag symptoms discussed with the patient. Reviewed appropriate action plan to take if red flag symptoms occur. Patient agreeable to treatment plan. Krupa Ku APRN.CNP documented in this encounterSt. Elizabeth Hospital11-29-2022 History of Present illness Narrative* Isma Almanza MD - 02/09/2022 11:23 AM EST Reason for Visit Patient presents with: Recheck: discuss medication-prozac and adipex Stella Collins is a 31 year old female who [...] during or within 14 days following MAO inhibi tor therapy; , breast-feeding. No problem-specific Assessment & [...] F) Resp 12 Ht 154.9 cm (5' 1) Wt 84.8 kg (187 lb) LMP 07/15/2020 [...] during or within 14 days following MAO inhibi tor therapy; , breast-feeding 2. Anxiety and depression - ICD9: 300.00, 311, ICD10: F41.9, F32.A The patient symptoms are well controlled at this point Isma Almanza MD documented in this encounterSt. Elizabeth Hospital10-13-2022 History of Present illness Narrative* Arline Caraballo APRN.[facility] - 12/24/2021 7:03 PM EDT This note was created using NoteWriter. Subjective Stella Collins is a 31 year old female. 30 [...] history is provided by the patient. No specialized language instructor was used. Back Pain This is a [...] by bending, twisting and certain positions. The painis The same all the time. Stiffness is [...] tabs for 3 days, then 2 tabs for3 days then 1 tab for 3 days with food. albuterol HFA (VENTOLIN HFA) 90 mcg/actuation inhaler Inhale 2 Puffs as instructed every 4 hours asneeded for wheezing/shortness of breath. fluticasone-vilanterol (BREO ELLIPTA) [...] dizziness, tingling, facial asymmetry, weakness, numbness, headaches andparesthesias. Hematological: Negative for adenopathy. Does not bruise/bleed [...] KETOROLAC 60 MG/2 ML INTRAMUSCULAR SOLUTION Arline Caraballo APRN.ANKIT documented in this encounterSt. Elizabeth Hospital08-30-2022 Miscellaneous Notes* Telephone Encounter - Lolis Jones LPN - 11/10/2021 3:32 PM EDT Patient has been identified by name and [...] you. Lolis Jones LPN documented in this encounterSt. Elizabeth Hospital06-27-2022 Instructions* Patient Instructions* Abeba Chase APRN.CNS - 09/07/2021 2:36 PM EDT Start taking lexapro once daily documented in this encounterSt. Elizabeth Hospital06-27-2022 History of Present illness Narrative* Abeba Chase APRN.CNS - 09/07/2021 2:11 PM EDT SUBJECTIVE: PNEUMOCOCCAL(1 - PCV) Never done HPV TESTING due on 08/16/2021 HPI Stella Collins is a 30 year old female. PMH significant for ACTIVE PROBLEM LIST Obesity, Class Iii, Bmi 40-49.9 (Morbid Obesity) (Hcc) Pain in Right Knee Chronic Right-Sided Low Back Pain With Right-Sided Sciatica Carpal Tunnel Syndrome of Right Wrist PCP: Isma Almanza MD HPI excerpted from previous visit: [...] Notes GI upset on prednisone. Notes no manager transportation. No reported PFTs. Smoking: Thinking about quitting but has not yet done so CXR: Not yet completed. She notes her loss has decreased, improving. Presents today regarding concern for depression. She notes mood is low. Notes that she is also feeling anxious and like she cannot sit still. She was previously on Wellbutrin but did not feel well onit felt jittery so discontinued. Previously was going [...] HENT: Head: Normocephalic and atraumatic. Mouth/Throat: Lips: [place] 7. Eyes: Conjunctiva/sclera: Conjunctivae normal. Cardiovascular: Rate and [...] Lymph 1.00 - 4.00 k/uL 6.12 (H) Nash% % 5.0 Abs Nash <0.87 k/uL 0.64 Eosin% % 4.0 Abs [...] Mucor racemosus Class Class 0 Class 0 Maya albicans IgE <0.35 kU/l <0.35 Maya albicans Class Class 0 Class 0 Alternaria [...] ICD10: Z23 - PNEUMOCOCCAL VACCINE (PREVNAR 20) Abeba Chase APRN.SHRAVAN Medical Decision Making: Problems: Low: Acute, uncomplicated illness or injury Data: Unique test(s) ordered: 1 Risk: Moderate: Drug management Medical Decision Making Level: 3 - Low documented in this encounterSt. Elizabeth Hospital06-20-2022 Miscellaneous Notes* Telephone Encounter - Breanna Willams LPN - 08/31/2021 11:12 AM EDT Patient has been identified by name and [...] you. Breanna Willams LPN documented in this encounterSt. Elizabeth Hospital06-10-2022 Procedure note* POLY Bennett - 08/21/2021 9:49 AM EDT Associated Order(s): NITRIC OXIDE, EXHALED RESPIRATORY THERAPY [...] <5.0 NAME: POLY Bennett PATIENT NAME: Stella Collins DATE: August 21, 2021 TIME: 9:49 AM documented in this encounterSt. Elizabeth Hospital06-10-2022 History of Present illness Narrative* POLY Bennett - 08/21/2021 9:36 AM EDT PULM FUNCTION SMARTBLOCK: Provider: Kimberly Flowers MD Assisting Tech: POLY Bennett Spirometry: 1 Exhaled Nitric Oxide: 1 System: [id number] documented in this encounterSt. Elizabeth Hospital04-19-2022 Miscellaneous Notes* Telephone Encounter - Mary Avila LPN - 06/30/2021 7:05 AM EDT See pt's mychart refill request. Pt was last seen in the office on 09/08/20. Please advise. Maria Del Rosario SIGALA documented in this encounterSt. Elizabeth Hospital03-29-2022 Instructions* Patient Instructions* Abeba Chase APRN.CNS - 06/09/2021 2:16 PM EDT Start taking [...] Try to quit smoking documented in this encounterSt. Elizabeth Hospital03-29-2022 History of Present illness Narrative* Abeba Chase APRN.EQUIPMENT OPERATOR INTERMODAL YARD - 06/09/2021 1:40 PM EDT SUBJECTIVE: COVID-19 VACCINE(1) Never done ONE PNEUMOVAX PRIOR TO AGE 66 Never done DEPRESSION SCREENING due on 09/09/2016 PAP TESTING due on 11/16/2021 HPI Stella Collins is a 30 year old female. PMH significant for ACTIVE PROBLEM LIST Obesity, Class Iii, Bmi 40-49.9 (Morbid Obesity) (Hcc) Pain in Right Knee Chronic Right-Sided Low Back Pain With Right-Sided Sciatica Carpal Tunnel Syndrome of Right Wrist PCP: Isma Almanza MD Presents today with concern regarding [...] Notes GI upset on prednisone. Notes no manager transportation. No reported PFTs. Smoking: Thinking about quitting [...] normal. Nose: Mucosal edema present. Mouth/Throat: Lips: [place] 7. Mouth: Mucous membranes are moist. Pharynx: Posterior oropharyngeal erythema present. No pharyngeal swelling, oropharyngeal exudate oruvula swelling. Tonsils: No tonsillar exudate or tonsillar [...] 2 Puffs as instructed every 4 hours asneeded for wheezing/shortness of breath. ibuprofen (MOTRIN) 600 [...] improved with treatment. Try to quit smoking Abeba Chase APRN.EQUIPMENT OPERATOR INTERMODAL YARD Medical Decision Making: Problems: Low: Acute, uncomplicated illness or injury Data: Unique test(s) ordered: 1 Risk: Moderate: Drug management Medical Decision Making Level: 3 - Low documented in this encounterSt. Elizabeth Hospital09-05-2019 History of Past illness Narrative* Problem Noted [...] desires a repeat C section by Dr Darling.Desires tubal ligation. TKRN Pelvic pain in female 10/28/2011 08/15/2012 Surveillance of previously p rescribed intrauterine contraceptive device 08/04/2010 08/15/2012 Nausea with vomiting 04/20/2010 08/15/2012 Headache(784.0) 04/20/2010 08/15/2012 Supervision of other high-risk (V23.89) 12/01/2009 06/05/2010 Pain in joint, forearm 09/12/2008 3 documented as of this encounter (statuses as of 06/09/2021) [facility] Past illness Narrative* Problem Noted [...] desires a repeat C section by Dr Darling.Desires tubal ligation. TKRN Pelvic pain in female 10/28/2011 08/15/2012 Surveillance of previously p rescribed intrauterine contraceptive device 08/04/2010 08/15/2012 Nausea with vomiting 04/20/2010 08/15/2012 Headache(784.0) 04/20/2010 08/15/2012 Supervision of other high-risk (V23.89) 12/01/2009 06/05/2010 Pain in joint, forearm 09/12/2008 3 documented as of this encounter (statuses as of 06/30/2021) [facility] illness Narrative* Problem Noted [...] desires a repeat C section by Dr Darling.Desires tubal ligation. TKRN Pelvic pain in female 10/28/2011 08/15/2012 Surveillance of previously p rescribed intrauterine contraceptive device 08/04/2010 08/15/2012 Nausea with vomiting 04/20/2010 08/15/2012 Headache(784.0) 04/20/2010 08/15/2012 Supervision of other high-risk (V23.89) 12/01/2009 06/05/2010 Pain in joint, forearm 09/12/2008 3 documented as of this encounter (statuses as of 2021) [facility] illness Narrative* Problem Noted [...] desires a repeat C section by Dr Darling.Desires tubal ligation. TKRN Pelvic pain in female 10/28/2011 08/15/2012 Surveillance of previously p rescribed intrauterine contraceptive device 08/04/2010 08/15/2012 Nausea with vomiting 04/20/2010 08/15/2012 Headache(784.0) 04/20/2010 08/15/2012 Supervision of other high-risk (V23.89) 12/01/2009 06/05/2010 Pain in joint, forearm 09/12/2008 3 documented as of this encounter (statuses as of 2021) [facility] Narrative* Problem Noted [...] desires a repeat C section by Dr Darling.Desires tubal ligation. TKRN Pelvic pain in female 10/28/2011 08/15/2012 Surveillance of previously p rescribed intrauterine contraceptive device 08/04/2010 08/15/2012 Nausea with vomiting 04/20/2010 08/15/2012 Headache(784.0) 04/20/2010 08/15/2012 Supervision of other high-risk (V23.89) 12/01/2009 06/05/2010 Pain in joint, forearm 09/12/2008 3 documented as of this encounter (statuses as of 08/21/2021) [facility] Narrative* Problem Noted [...] desires a repeat C section by Dr Darling.Desires tubal ligation. TKRN Pelvic pain in female 10/28/2011 08/15/2012 Surveillance of previously p rescribed intrauterine contraceptive device 08/04/2010 08/15/2012 Nausea with vomiting 04/20/2010 08/15/2012 Headache(784.0) 04/20/2010 08/15/2012 Supervision of other high-risk (V23.89) 12/01/2009 06/05/2010 Pain in joint, forearm 09/12/2008 3 documented as of this encounter (statuses as of 08/21/2021) [facility] Narrative* Problem Noted [...] desires a repeat C section by Dr Darling.Desires tubal ligation. TKRN Pelvic pain in female 10/28/2011 08/15/2012 Surveillance of previously p rescribed intrauterine contraceptive device 08/04/2010 08/15/2012 Nausea with vomiting 04/20/2010 08/15/2012 Headache(784.0) 04/20/2010 08/15/2012 Supervision of other high-risk (V23.89) 12/01/2009 06/05/2010 Pain in joint, forearm 09/12/2008 3 documented as of this encounter (statuses as of 09/03/2021) [facility] Narrative* Problem Noted [...] desires a repeat C section by Dr Darling.Desires tubal ligation. TKRN Pelvic pain in female 10/28/2011 08/15/2012 Surveillance of previously p rescribed intrauterine contraceptive device 08/04/2010 08/15/2012 Nausea with vomiting 04/20/2010 08/15/2012 Headache(784.0) 04/20/2010 08/15/2012 Supervision of other high-risk (V23.89) 12/01/2009 06/05/2010 Pain in joint, forearm 09/12/2008 3 documented as of this encounter (statuses as of 09/07/2021) [facility] Narrative* Problem Noted [...] desires a repeat C section by Dr Darlign.Desires tubal ligation. TKRN Pelvic pain in female 10/28/2011 08/15/2012 Surveillance of previously p rescribed intrauterine contraceptive device 08/04/2010 08/15/2012 Nausea with vomiting 04/20/2010 08/15/2012 Headache(784.0) 04/20/2010 08/15/2012 Supervision of other high-risk (V23.89) 12/01/2009 06/05/2010 Pain in joint, forearm 09/12/2008 3 documented as of this encounter (statuses as of 09/07/2021) [facility] Narrative* Problem Noted [...] desires a repeat C section by Dr Darling.Desires tubal ligation. TKRN Pelvic pain in female 10/28/2011 08/15/2012 Surveillance of previously p rescribed intrauterine contraceptive device 08/04/2010 08/15/2012 Nausea with vomiting 04/20/2010 08/15/2012 Headache(784.0) 04/20/2010 08/15/2012 Supervision of other high-risk (V23.89) 12/01/2009 06/05/2010 Pain in joint, forearm 09/12/2008 3 documented as of this encounter (statuses as of 11/11/2021) [facility] Narrative* Problem Noted [...] desires a repeat C section by Dr Darling.Desires tubal ligation. TKRN Pelvic pain in female 10/28/2011 08/15/2012 Surveillance of previously p rescribed intrauterine contraceptive device 08/04/2010 08/15/2012 Nausea with vomiting 04/20/2010 08/15/2012 Headache(784.0) 04/20/2010 08/15/2012 Supervision of other high-risk (V23.89) 12/01/2009 06/05/2010 Pain in joint, forearm 09/12/2008 3 documented as of this encounter (statuses as of 12/25/2021) [facility] Narrative* Problem Noted [...] desires a repeat C section by Dr Darling.Desires tubal ligation. TKRN Pelvic pain in female 10/28/2011 08/15/2012 Surveillance of previously p rescribed intrauterine contraceptive device 08/04/2010 08/15/2012 Nausea with vomiting 04/20/2010 08/15/2012 Headache(784.0) 04/20/2010 08/15/2012 Supervision of other high-risk (V23.89) 12/01/2009 06/05/2010 Pain in joint, forearm 09/12/2008 3 documented as of this encounter (statuses as of 02/09/2022) [facility] Narrative* Problem Noted [...] desires a repeat C section by Dr Darling.Desires tubal ligation. TKRN Pelvic pain in female 10/28/2011 08/15/2012 Surveillance of previously p rescribed intrauterine contraceptive device 08/04/2010 08/15/2012 Nausea with vomiting 04/20/2010 08/15/2012 Headache(784.0) 04/20/2010 08/15/2012 Supervision of other high-risk (V23.89) 12/01/2009 06/05/2010 Pain in joint, forearm 09/12/2008 3 documented as of this encounter (statuses as of 03/17/2022) [facility] Narrative* Problem Noted [...] desires a repeat C section by Dr Darling.Desires tubal ligation. TKRN Pelvic pain in female 10/28/2011 08/15/2012 Surveillance of previously p rescribed intrauterine contraceptive device 08/04/2010 08/15/2012 Nausea with vomiting 04/20/2010 08/15/2012 Headache(784.0) 04/20/2010 08/15/2012 Supervision of other high-risk (V23.89) 12/01/2009 06/05/2010 Pain in joint, forearm 09/12/2008 3 documented as of this encounter (statuses as of 03/19/2022) [facility] Narrative* Problem Noted [...] desires a repeat C section by Dr Darling.Desires tubal ligation. TKRN Pelvic pain in female 10/28/2011 08/15/2012 Surveillance of previously p rescribed intrauterine contraceptive device 08/04/2010 08/15/2012 Nausea with vomiting 04/20/2010 08/15/2012 Headache(784.0) 04/20/2010 08/15/2012 Supervision of other high-risk (V23.89) 12/01/2009 06/05/2010 Pain in joint, forearm 09/12/2008 3 documented as of this encounter (statuses as of 03/23/2022) [facility] History of Past illness Narrative* Problem Noted [...] desires a repeat C section by Dr Darling.Desires tubal ligation. TKRN Pelvic pain in female 10/28/2011 08/15/2012 Surveillance of previously p rescribed intrauterine contraceptive device 08/04/2010 08/15/2012 Nausea with vomiting 04/20/2010 08/15/2012 Headache(784.0) 04/20/2010 08/15/2012 Supervision of other high-risk (V23.89) 12/01/2009 06/05/2010 Pain in joint, forearm 09/12/2008 3 documented as of this encounter (statuses as of 03/24/2022) [facility] History of Past illness Narrative* Problem Noted [...] desires a repeat C section by Dr Darling.Desires tubal ligation. TKRN Pelvic pain in female 10/28/2011 08/15/2012 Surveillance of previously p rescribed intrauterine contraceptive device 08/04/2010 08/15/2012 Nausea with vomiting 04/20/2010 08/15/2012 Headache(784.0) 04/20/2010 08/15/2012 Supervision of other high-risk (V23.89) 12/01/2009 06/05/2010 Pain in joint, forearm 09/12/2008 3 documented as of this encounter (statuses as of 03/30/2022) [facility] History of Past illness Narrative* Problem Noted [...] desires a repeat C section by Dr Darling.Desires tubal ligation. TKRN Pelvic pain in female 10/28/2011 08/15/2012 Surveillance of previously p rescribed intrauterine contraceptive device 08/04/2010 08/15/2012 Nausea with vomiting 04/20/2010 08/15/2012 Headache(784.0) 04/20/2010 08/15/2012 Supervision of other high-risk (V23.89) 12/01/2009 06/05/2010 Pain in joint, forearm 09/12/2008 3 documented as of this encounter (statuses as of 04/12/2022) [facility] History of Past illness Narrative* Problem Noted [...] desires a repeat C section by Dr Darling.Desires tubal ligation. TKRN Pelvic pain in female 10/28/2011 08/15/2012 Surveillance of previously p rescribed intrauterine contraceptive device 08/04/2010 08/15/2012 Nausea with vomiting 04/20/2010 08/15/2012 Headache(784.0) 04/20/2010 08/15/2012 Supervision of other high-risk (V23.89) 12/01/2009 06/05/2010 Pain in joint, forearm 09/12/2008 3 documented as of this encounter (statuses as of 05/27/2022) [facility] History of Past illness Narrative* Problem Noted [...] desires a repeat C section by Dr Darling.Desires tubal ligation. TKRN Pelvic pain in female 10/28/2011 08/15/2012 Surveillance of previously p rescribed intrauterine contraceptive device 08/04/2010 08/15/2012 Nausea with vomiting 04/20/2010 08/15/2012 Headache(784.0) 04/20/2010 08/15/2012 Supervision of other high-risk (V23.89) 12/01/2009 06/05/2010 Pain in joint, forearm 09/12/2008 3 documented as of this encounter (statuses as of 06/10/2022) [facility] History of Past illness Narrative* Problem Noted [...] desires a repeat C section by Dr Darling.Desires tubal ligation. TKRN Pelvic pain in female 10/28/2011 08/15/2012 Surveillance of previously p rescribed intrauterine contraceptive device 08/04/2010 08/15/2012 Nausea with vomiting 04/20/2010 08/15/2012 Headache(784.0) 04/20/2010 08/15/2012 Supervision of other high-risk (V23.89) 12/01/2009 06/05/2010 Pain in joint, forearm 09/12/2008 3 documented as of this encounter (statuses as of 06/24/2022) [facility] History of Past illness Narrative* Problem Noted [...] desires a repeat C section by Dr Darling.Desires tubal ligation. TKRN Pelvic pain in female 10/28/2011 08/15/2012 Surveillance of previously p rescribed intrauterine contraceptive device 08/04/2010 08/15/2012 Nausea with vomiting 04/20/2010 08/15/2012 Headache(784.0) 04/20/2010 08/15/2012 Supervision of other high-risk (V23.89) 12/01/2009 06/05/2010 Pain in joint, forearm 09/12/2008 3 documented as of this encounter (statuses as of 06/28/2022) [facility] History of Past illness Narrative* Problem Noted [...] desires a repeat C section by Dr Darling.Desires tubal ligation. TKRN Pelvic pain in female 10/28/2011 08/15/2012 Surveillance of previously p rescribed intrauterine contraceptive device 08/04/2010 08/15/2012 Nausea with vomiting 04/20/2010 08/15/2012 Headache(784.0) 04/20/2010 08/15/2012 Supervision of other high-risk (V23.89) 12/01/2009 06/05/2010 Pain in joint, forearm 09/12/2008 3 documented as of this encounter (statuses as of 06/29/2022) [facility] of Past illness Narrative* Problem Noted [...] desires a repeat C section by Dr Darling.Desires tubal ligation. TKRN Pelvic pain in female 10/28/2011 08/15/2012 Surveillance of previously p rescribed intrauterine contraceptive device 08/04/2010 08/15/2012 Nausea with vomiting 04/20/2010 08/15/2012 Headache(784.0) 04/20/2010 08/15/2012 Supervision of other high-risk (V23.89) 12/01/2009 06/05/2010 Pain in joint, forearm 09/12/2008 3 documented as of this encounter (statuses as of 07/13/2022) [facility] of Past illness Narrative* Problem Noted [...] desires a repeat C section by Dr Darling.Desires tubal ligation. TKRN Pelvic pain in female 10/28/2011 08/15/2012 Surveillance of previously p rescribed intrauterine contraceptive device 08/04/2010 08/15/2012 Nausea with vomiting 04/20/2010 08/15/2012 Headache(784.0) 04/20/2010 08/15/2012 Supervision of other high-risk (V23.89) 12/01/2009 06/05/2010 Pain in joint, forearm 09/12/2008 3 documented as of this encounter (statuses as of 07/16/2022) [facility] of Past illness Narrative* Problem Noted [...] desires a repeat C section by Dr Darling.Desires tubal ligation. TKRN Pelvic pain in female 10/28/20112012 Surveillance of previously p rescribed intrauterine contraceptive device 08/04/20102012 Nausea with vomiting 04/20/2010 013 Headache(784.0) 04/20/2010 08/15/2012 Supervision of other high-ri sk (V23.89) 12/01/2009 06/05/2010 Pain in joint, forearm 09/12/200808/15 documented as of this encounter (statuses as of 11/02/2022) [facility] History of Past illness Narrative* Problem Noted [...] desires a repeat C section by Dr Darling.Desires tubal ligation. TKRN Pelvic pain in female 10/28/20112012 Surveillance of previously p rescribed intrauterine contraceptive device 08/04/20102012 Nausea with vomiting 04/20/2010 013 Headache(784.0) 04/20/2010 08/15/2012 Supervision of other high-ri sk (V23.89) 12/01/2009 06/05/2010 Pain in joint, forearm 09/12/200808/15 documented as of this encounter (statuses as of 11/05/2022) [facility] of Past illness Narrative* Problem Noted [...] desires a repeat C section by Dr Darling.Desires tubal ligation. TKRN Pelvic pain in female 10/28/20112012 Surveillance of previously p rescribed intrauterine contraceptive device 08/04/20102012 Nausea with vomiting 04/20/2010 013 Headache(784.0) 04/20/2010 08/15/2012 Supervision of other high-ri sk (V23.89) 12/01/2009 06/05/2010 Pain in joint, forearm 09/12/200808/15 documented as of this encounter (statuses as of 11/17/2022) [facility] of Past illness Narrative* Problem Noted [...] desires a repeat C section by Dr Darling.Desires tubal ligation. TKRN Pelvic pain in female 10/28/20112012 Surveillance of previously p rescribed intrauterine contraceptive device 08/04/20102012 Nausea with vomiting 04/20/2010 013 Headache(784.0) 04/20/2010 08/15/2012 Supervision of other high-ri sk (V23.89) 12/01/2009 06/05/2010 Pain in joint, forearm 09/12/200808/15 documented as of this encounter (statuses as of 11/30/2022) [facility] of Past illness Narrative* Problem Noted [...] desires a repeat C section by Dr Darling.Desires tubal ligation. TKRN Pelvic pain in female 10/28/20112012 Surveillance of previously p rescribed intrauterine contraceptive device 08/04/20102012 Nausea with vomiting 04/20/2010 013 Headache(784.0) 04/20/2010 08/15/2012 Supervision of other high-ri sk (V23.89) 12/01/2009 06/05/2010 Pain in joint, forearm 09/12/200808/15 documented as of this encounter (statuses as of 12/24/2022) [facility] Past illness Narrative* Problem Noted [...] desires a repeat C section by Dr Darling.Desires tubal ligation. TKRN Pelvic pain in female 10/28/20112012 Surveillance of previously p rescribed intrauterine contraceptive device 08/04/20102012 Nausea with vomiting 04/20/2010 013 Headache(784.0) 04/20/2010 08/15/2012 Supervision of other high-ri sk (V23.89) 12/01/2009 06/05/2010 Pain in joint, forearm 09/12/200808/15 documented as of this encounter (statuses as of 12/24/2022) [facility] Past illness Narrative* Problem Noted [...] desires a repeat C section by Dr Darling.Desires tubal ligation. TKRN Pelvic pain in female 10/28/20112012 Surveillance of previously p rescribed intrauterine contraceptive device 08/04/20102012 Nausea with vomiting 04/20/2010 013 Headache(784.0) 04/20/2010 08/15/2012 Supervision of other high-ri sk (V23.89) 12/01/2009 06/05/2010 Pain in joint, forearm 09/12/200808/15 documented as of this encounter (statuses as of 01/31/2023) [facility] Past illness Narrative* Problem Noted [...] desires a repeat C section by Dr Darling.Desires tubal ligation. TKRN Pelvic pain in female 10/28/20112012 Surveillance of previously p rescribed intrauterine contraceptive device 08/04/20102012 Nausea with vomiting 04/20/2010 013 Headache(784.0) 04/20/2010 08/15/2012 Supervision of other high-ri sk (V23.89) 12/01/2009 06/05/2010 Pain in joint, forearm 09/12/200808/15 documented as of this encounter (statuses as of 02/24/2023) [facility] of Past illness Narrative* Problem Noted [...] desires a repeat C section by Dr Darling.Desires tubal ligation. TKRN Pelvic pain in female 10/28/20112012 Surveillance of previously p rescribed intrauterine contraceptive device 08/04/20102012 Nausea with vomiting 04/20/2010 013 Headache(784.0) 04/20/2010 08/15/2012 Supervision of other high-ri sk (V23.89) 12/01/2009 06/05/2010 Pain in joint, forearm 09/12/200808/15 documented as of this encounter (statuses as of 05/23/2023) [facility] of Past illness Narrative* Problem Noted [...] desires a repeat C section by Dr Darling.Desires tubal ligation. TKRN Pelvic pain in female 10/28/20112012 Surveillance of previously p rescribed intrauterine contraceptive device 08/04/20102012 Nausea with vomiting 04/20/2010 013 Headache(784.0) 04/20/2010 08/15/2012 Supervision of other high-ri sk (V23.89) 12/01/2009 06/05/2010 Pain in joint, forearm 09/12/200808/15 documented as of this encounter (statuses as of 05/25/2023) [facility] Past illness Narrative* Problem Noted [...] desires a repeat C section by Dr Darling.Desires tubal ligation. TKRN Pelvic pain in female 10/28/20112012 Surveillance of previously p rescribed intrauterine contraceptive device 08/04/20102012 Nausea with vomiting 04/20/2010 013 Headache(784.0) 04/20/2010 08/15/2012 Supervision of other high-ri sk (V23.89) 12/01/2009 06/05/2010 Pain in joint, forearm 09/12/200808/15 documented as of this encounter (statuses as of 06/01/2023) [facility] Past illness Narrative* Problem Noted [...] desires a repeat C section by Dr Darling.Desires tubal ligation. TKRN Pelvic pain in female 10/28/20112012 Surveillance of previously p rescribed intrauterine contraceptive device 08/04/20102012 Nausea with vomiting 04/20/2010 013 Headache(784.0) 04/20/2010 08/15/2012 Supervision of other high-ri sk (V23.89) 12/01/2009 06/05/2010 Pain in joint, forearm 09/12/200808/15 documented as of this encounter (statuses as of 06/03/2023) [facility] No data available for this section [facility]* Diagnosis Cough- Primary [facility]ness of [facility] of breath [facility] Cough Shortness of breath [facility] Diagnosis Anxiety and depression- Primary Dysthymic disorder Encounter for immunization Need for other specified prophylactic vaccination against single bacterial disease [facility] Diagnosis Onset Date Resolution Status Paresthesia of left upper extremity acute [facility] Work Phone: Evaluation note* Diagnosis Cough Shortness of breath [facility] Diagnosis Sciatica, right side- Primary [facility]* Diagnosis Class 2 severe obesity with serious comorbidity and body mass index (BMI) of 35.0 to 35.9 in adult, unspecified obesity type (HCC)- Primary Anxiety and depression Dysthymic disorder [facility]* Diagnosis Obesity (BMI 30-39.9)- Primary Obesity, unspecified Weight loss counseling, encounter for Dietary surveillance and counseling Chronic right-sided low back pain with right-sided sciatica [facility]* Diagnosis Pelvic pain in female- Primary Unspecified symptom associated with female genital organs Deep dyspareunia Abnormal uterine bleeding (AUB) Encounter for screening for human papillomavirus (HPV) Special screening examination for human papillomavirus (HPV) Screening for cervical cancer Screening for malignant neoplasm of the cervix [facility] Diagnosis 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- Primary [facility]* Diagnosis Cervical high risk HPV (human papillomavirus) test positive- Primary Cervical high risk human papillomavirus (HPV) DNA test positive Need for prophylactic vaccination/inoculation against viral disease Need for prophylactic vaccination and inoculation against other viral diseases [facility]* Diagnosis Obesity (BMI 30-39.9) Obesity, unspecified [facility] Diagnosis Panic attacks- Primary Panic disorder without agoraphobia [facility] this [facility]* Diagnosis Sore throat- Primary Acute pharyngitis Viral URI with cough Acute upper respiratory infections of unspecified site [facility]* Diagnosis Wellness examination- Primary Anxiety and depression Dysthymic disorder Dysphagia, unspecified type Elevated BP without diagnosis of hypertension [facility]* Diagnosis Panic attacks Panic disorder without agoraphobia [facility] this [facility]* Diagnosis Anxiety and depression- Primary Dysthymic disorder Need for HPV vaccination Need for prophylactic vaccination and inoculation against other viral diseases [facility] this [facility] Diagnosis Panic attack- Primary Panic disorder without agoraphobia documented in this encounter [facility] note* Diagnosis Panic attacks Panic disorder without agoraphobia documented in this encounter [facility] note* Diagnosis Anxiety and depression- Primary Dysthymic disorder Panic attacks Panic disorder without agoraphobia documented in this encounter [facility] note* Diagnosis Mild intermittent asthmatic bronchitis without complication- Primary Rhonchi Abnormal chest sounds documented in this encounter [facility] noteNo assessment information availableW[facility]* Diagnosis Obesity (BMI 30-39.9)- Primary Obesity, unspecified Class 2 severe obesity with serious comorbidity and body mass index (BMI) of 35.0 to 35.9 in adult, unspecified obesity type documented in this encounter [facility] note* Diagnosis Onset Date Resolution Status Abdominal pain acute Abdominal pain acute [facility] Work Phone: Evaluation note* Diagnosis Ovarian cyst, right- Primary Other and unspecified ovarian cyst Pelvic pain in female Unspecified symptom associated with female genital organs Abnormal uterine bleeding (AUB) Nexplanon in place Presence of subdermal contraceptive device documented in this encounter [facility] note* Diagnosis Nausea- Primary Nausea alone documented in this encounter [facility] note* Diagnosis Ovarian cyst, right Other and unspecified ovarian cyst [facility]* Diagnosis Onset Date Resolution Status Abdominal pain acute [facility] Work Phone: Evaluation note* Diagnosis Muscle pain- Primary Mylagia and myositis, unspecified Pain Generalized pain documented in this encounter [facility] note* Diagnosis Pain, dental- Primary Unspecified disorder of the teeth and supporting structures Feared condition not demonstrated Person with feared complaint in whom no diagnosis was made documented in this encounter [facility] note* Diagnosis Pain of left heel- Primary Pain in limb Pain of left heel Pain in limb [facility]* Diagnosis Left foot pain- Primary Pain in limb [facility]* Diagnosis Pain of left heel Pain in limb [facility] this [facility]* Diagnosis Plantar fasciitis- Primary Plantar fascial fibromatosis Pain of left heel Pain in limb [facility] Diagnosis Chronic right-sided low back pain with right-sided sciatica [facility] Diagnosis Pain of toe of left foot Pain in limb [facility] Diagnosis Smoker Tobacco use disorder Cough [facility]* Diagnosis Dysuria- Primary [facility]* Diagnosis Left foot pain Pain in limb [facility]* Diagnosis Left arm swelling- Primary Swelling of limb [facility]* Diagnosis Left arm swelling- Primary Swelling of limb SOB (shortness of breath) Shortness of breath History of carpal tunnel surgery of left wrist Cough Shortness of breath Soft tissue swelling of chest wall Swelling, mass, or lump in chest Left arm swelling Swelling of limb Left arm swelling Swelling of limb SOB (shortness of breath) Shortness of breath History of carpal tunnel surgery of left wrist Cough Shortness of breath Soft tissue swelling of chest wall Swelling, mass, or lump in chest [facility] Diagnosis Left arm swelling Swelling of limb SOB (shortness of breath) Shortness of breath History of carpal tunnel surgery of left wrist Cough Shortness of breath Soft tissue swelling of chest wall Swelling, mass, or lump in chest [facility] Diagnosis Left arm swelling Swelling of limb [facility] Diagnosis Acute pain of left shoulder- Primary Acute pain of left shoulder [facility] Diagnosis Acute pain of left shoulder [facility]* Diagnosis Sore throat- Primary Acute pharyngitis [facility]* Diagnosis Mild intermittent asthma with acute exacerbation (HCC)- Primary Unspecified asthma, with exacerbation [facility]* Diagnosis Pain- Primary Generalized pain [facility]* Diagnosis Acute conjunctivitis of both eyes, unspecified acute conjunctivitis type- Primary [facility] Author Umesh Jimenez [facility] June 10, 2023 10:28am Note Date/Time June 10, 2023 10: 28am [facility] Medical Records Department [address] [place] [address] History & Physical Exam 06/10/23 1028 MR#: [id number] Acct: [id number] Name: STELLA COLLINS Rep #:[id number] : 1990 32 From: Umesh goss MD PCP: Dr. 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 Required: No Is patient in pain?: No Allergies No Known Drug Allergies Allergy (Verified 03/21/23 13:13) Other Medications etonogestrel 68 mg subdermal implant (Nexplanon) 1 implant subdermal ONCE 07/20/21 [History Confirmed 03/21/23] montelukast 10 mg tablet 10 mg PO DAILY 07/20/21 [History Confirmed 03/21/23] buspirone 15 mg tablet 15 mg PO BID 01/26/23 [History Confirmed 03/21/23] hydroxyzine HCl 25 mg tablet 25 mg PO Q8H PRN anxiety 01/26/23 [History Confirmed 03/21/23] lorazepam 0.5 mg tablet 0.5 mg PO Q8H PRN anxiety 01/26/23 [History Confirmed 03/21/23] trazodone 50 mg tablet 50 mg PO QHS PRN insomnia 01/26/23 [History Confirmed 03/21/23] venlafaxine 75 mg capsule,extended release 24 hr 75 mg PO QHS 01/26/23 [History Confirmed 03/21/23] pantoprazole 40 mg tablet,delayed release 40 mg PO DAILY #30 tabs 02/14/23 [Rx Confirmed 03/21/23] PFSH Medical History Asthma COVID-19 Urinary tract infection with hematuria Surgical History History of History of carpal tunnel surgery Social History Smoking Status: Heavy Smoker (>10/day) alcohol intake: never HPI HPI HPI: Patient is a 32-year-old female here with epigastric pain. The patient has beentaking her PPI daily since her last visit and reports that there has been some improvement but it is not gone and it is still painful in the epigastric region especially if she eats. ROS General General: Yes weight change, appetite and fatigue; No colon cancer, breast cancer or weakness HEENT HEENT: No difficulty swallowing, eye injury, eye surgery, swollen glands or hoarseness Endo Endocrine: No thyroid disease, diabetes mellitus, thyroid cancer, Hair loss, heat intolerance or cold intolerance Skin Skin: No rash or changing moles Breast Breast: No left breast lump, right breast lump, nipple discharge, breast pain, abnormal mammogram, abnormal US or breast enlargement Musc Musculoskeletal: No back problems, arthritis, rheumatoid arthritis, gout or joint pain Cardio Cardiovascular: No murmur, pacemaker, heart disease, atrial fibrillation, high blood pressure, heart attack, heart stent, palpitations, shortness of breat withexertion or chest pain Psych Psychiatric: Yes depression and anxiety; No hearing voices Resp Respiratory: No shortness of breath, No sleep apnea, No cough, No COPD, Yes asthma, No emphysema and No wheezing Gastro Gastrointestinal: Yes abdominal pain, No nausea or vomiting, No diarrhea, No constipation, No blood in stool, Yes acid reflux, No hemorrhoids, No ulcers, No gallbladder problem and No black,tarry stools [facility] Hematologic: No blood thinners, No blood disorders, No bleeding, No anemia and No blood clots Neuro Neurologic: No system reviewed and no additional complaints, except as documented, No as per HPI, No abnormal gait, No abnormal hearing, No abnormal movements, No abnormal speech, No behavioral changes, No burning sensations, No confusion, No convulsions, No disequilibrium, No dizziness, No localized weakness, No frequent falls, No headache(s), No lack of coordination, No loss ofvision, No memory loss, No numbness, No other visual disturbances, No radicular pain, No restless legs, No sensory deficit, No syncope, No tingling, No tremor(s), No weakness and No other Exam Const General: cooperative Orientation: alert and oriented x3 HENMT Head: normal to inspection Neck Neck: normal visual inspection and full ROM Chest Chest palpation & inspection: normal inspection of the chest Resp Effort & Inspection: normal respiratory effort Auscultation: clear to auscultation bilaterally Cardio Rate: regular rate Rhythm: regular rhythm GI Inspection: non-distended Palpation: soft and nontender Skin General: no rashes or lesions noted Neuro General: patient alert and patient oriented x3 Extrem General: full ROM Psych Appearance: grossly normal Mental Status: mental status grossly normal Assessment and Plan Assessment and Plan (1) Abdominal pain: Status: Acute Qualifiers: Abdominal location: epigastric Qualified Code(s): R10.13 - Epigastric pain Plan: Patient still complaining of epigastric pain. I recommend that she continue herPPI until I am able to perform an EGD. I did discuss EGD with her. I explainedendoscopy in detail to the patient. I explained the risks including but not limited to stroke or heart attack with anesthesia, perforation of the GI tract, bleeding, infection. I explained that any of these could necessitate further emergency surgery. The patient understands and all questions were answered sufficiently. The patient wishes to proceed with procedure. Umesh Jimenez MD Pager: [facility] [address] [place] [address], [address] [place] [address] Office: I have examined the patient and the H&P has been reviewed. There are no clinicalchanges since date of exam. 06/10/23 1028 <Electronically signed by Umesh Jimenez MD> Cosigner Signature (if applicable): CC: Dr. Umesh Jimenez MD; Dr. Isma Almanza MD~ Signed [facility] Work Phone: Hospital Discharge instructions Additional Instructions Please avoid medication such as ibuprofen or Aleve as this can irritate the stomach. Only take Tylenol for pain. Try to adhere to a low acid diet. I suspect your pain is from inflammation/irritation of the stomach such as from peptic ulcer disease or acid reflux. Resume taking your antacids which you have been prescribed today. Follow-up with your primary care doctor as scheduled.[facility] Work Phone: Hospital Discharge instructions Additional Instructions As discussed, call the surgery office to see if you can be added to a cancellation list to try to have your scope completed sooner.[facility] Work Phone: Hospital Discharge instructions Additional Instructions Thank you for trusting us with your care today! Please take Tylenol (2 pills, 650 mg), ibuprofen (2 pills, 400 mg) every 6 hours as needed for pain and fever control. Please take Atarax as needed for anxiety. Please return to the emergency department if your symptoms change or worsen. Please follow with your primary care physician for further outpatient evaluation and management.[facility] Work Phone: Reason for referral (narrative)* Diagnostic Procedure Only (Routine) - Authorized Specialty Diagnoses / Procedures Referred By Contac t Referred To Contact [facility] Diagnoses Pelvic pain in female Deep dyspareunia Abnormal uterine bleeding (AUB) Procedures PELVIC US WHI US PELVIC NONOBSTETRIC REAL-TIME IMAGE COMPLETE Amy Pineda MD [address] [place] [address] [facility] [address] [place] [address] Referral ID Status Reason Start Date Expiration Date Visits Requested Visits Authorized [id number] Authorized Auto-Generat ed Referral 03/18/2022 03/18/2023 1 1 [facility] for referral (narrative)* Outpatient Procedure (Routine) - Authorized Specialty Diagnoses / Procedures Referred By Contac t Referred To Contact [facility] Diagnoses 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 Procedures COLPOSCOPY COLPOSCOPY CERVIX BX CERVIX & ENDOCRV CURRETAGE Amy Pineda MD [address] [address] [facility] [address] [place] [address] Referral ID Status Reason Start Date Expiration Date Visits Requested Visits Authorized [id number] Authorized Auto-Generat ed Referral 03/23/2022 03/23/2023 1 1 [facility] for referral (narrative)* Diagnostic Procedure Only (Routine) - Authorized Specialty Diagnoses / Procedures Referred By Contac t Referred To Contact [facility] Diagnoses Ovarian cyst, right Procedures PELVIC US WHI US PELVIC NONOBSTETRIC REAL-TIME IMAGE COMPLETE Amy Pineda MD [address] [place] [address] [facility] [address] [place] [address] Referral ID Status Reason Start Date Expiration Date Visits Requested Visits Authorized [id number] Authorized Auto-Generat ed Referral 05/23/2023 05/22/2024 1 1 * Diagnostic Procedure Only (Routine) - Authorized Specialty Diagnoses / Procedures Referred By Contac t Referred To Contact [facility] Diagnoses Ovarian cyst, right Procedures US FEMALE PELVIS TRANSVAG US TRANSVAGINAL Amy Pineda MD [address] [place] [address] [place] [address] Referral ID Status Reason Start Date Expiration Date Visits Requested Visits Authorized [id number] Authorized Auto-Generat ed Referral 05/23/2023 06/21/2024 1 1 [facility] for referral (narrative)* Diagnostic Procedure Only (Urgent) - Pending Review Specialty Diagnoses / Procedures Referred By Contac t Referred To Contact [facility] Diagnoses Pain Procedures XR SHOULDER GENERAL 3V OR MORE AP/TRUE AP/OTHER LEFT RADEX SHOULDER COMPLETE MINIMUM 2 VIEWS Delia Abrams APRN.LYFT DRIVER [address] [place] [address] [place] [address] Referral ID Status Reason Start Date Expiration Date Visits Requested Visits Authorized [id number] Pending Review Auto-Generat ed Referral 07/22/2023 08/20/2024 1 1 [facility] for referral (narrative)* Diagnostic Procedure Only (Urgent) - Closed Specialty Diagnoses / Procedures Referred By Contac t Referred To Contact [facility] Diagnoses Pain of left heel Procedures XR CALCANEUS 2V AXIAL/LAT LEFT RADEX CALCANEUS MINIMUM 2 VIEWS Silvestre Diana MD [address] [place] [address] [place] [address] Referral ID Status Reason Start Date Expiration Date V isits Requested Visits Authorized [id number] Closed Auto-Generate d Referral 09/29/2023 10/28/2024 1 1 [facility] for referral (narrative)* Diagnostic Procedure Only (Routine) - Closed Specialty Diagnoses / Procedures Referred By Contac t Referred To Contact [facility] Diagnoses Chronic right-sided low back pain with right-sided sciatica Procedures XR SACROILIAC JOINTS 2V AP PELVIS/FERGUESON RADIOLOGIC EXAMINATION SACROILIAC JNTS <3 VIEWS Isma Almanza MD [address] [place] [address] [place] [address] Referral ID Status Reason Start Date Expiration Date V isits Requested Visits Authorized [id number] Closed Auto-Generate d Referral 01/18/2022 02/17/2023 1 1 * Diagnostic Procedure Only (Routine) - Closed Specialty Diagnoses / Procedures Referred By Contac t Referred To Contact [facility] Diagnoses Chronic right-sided low back pain with right-sided sciatica Procedures XR LUMBAR GENERAL 3V AP/LAT/L5-S1 RADEX SPINE LUMBOSACRAL 2/3 VIEWS Isma Almanza MD [address] [place] [address] [place] [address] Referral ID Status Reason Start Date Expiration Date V isits Requested Visits Authorized [id number] Closed Auto-Generate d Referral 01/18/2022 02/17/2023 1 1 [facility] for referral (narrative)* Diagnostic Procedure Only (Urgent) - Closed Specialty Diagnoses / Procedures Referred By Contac t Referred To Contact [facility] Diagnoses Pain of toe of right foot Procedures XR FOOT GENERAL 3V AP/LAT/OBL RIGHT RADEX FOOT COMPLETE MINIMUM 3 VIEWS Delia Abrams APRN.LYFT DRIVER [address] [place] [address] [place] [address] Referral ID Status Reason Start Date Expiration Date V isits Requested Visits Authorized [id number] Closed Auto-Generate d Referral 07/13/2021 08/12/2022 1 1 [facility] for referral (narrative)* Diagnostic Procedure Only (Urgent) - Closed Specialty Diagnoses / Procedures Referred By Contac t Referred To Contact [facility] Diagnoses Left arm swelling Procedures US DVT UPPER LEFT DUP-SCAN XTR VEINS UNILATERAL/LIMITED STUDY Abeba Chase APRN.EQUIPMENT OPERATOR INTERMODAL YARD [address] [place] [address] [place] [address] Referral ID Status Reason Start Date Expiration Date V isits Requested Visits Authorized [id number] Closed Auto-Generate d Referral 01/17/2024 02/15/2025 1 1 [facility] for referral (narrative)* Diagnostic Procedure Only (Urgent) - Closed Specialty Diagnoses / Procedures Referred By Contac t Referred To Contact [facility] Diagnoses Acute pain of left shoulder Procedures XR SHOULDER GENERAL 3V OR MORE AP/TRUE AP/OTHER LEFT RADEX SHOULDER COMPLETE MINIMUM 2 VIEWS Ruben Jain PA [address] [place] [address] [place] [address] Referral ID Status Reason Start Date Expiration Date V isits Requested Visits Authorized [id number] Closed Auto-Generate d Referral 03/26/2024 04/25/2025 1 1 [facility] for referral (narrative)* Diagnostic Procedure Only (Urgent) - Closed Specialty Diagnoses / Procedures Referred By Contac t Referred To Contact [facility] Diagnoses Acute pain of left shoulder Procedures XR SHOULDER GENERAL 3V OR MORE AP/TRUE AP/OTHER LEFT RADEX SHOULDER COMPLETE MINIMUM 2 VIEWS Ruben Jain PA [address] [place] [address] [place] [address] Referral ID Status Reason Start Date Expiration Date V isits Requested Visits Authorized [id number] Closed Auto-Generate d Referral 03/26/2024 04/25/2025 1 1 [facility] for visit Narrative* Diagnostic Procedure Only (Urgent) - Closed Specialty Diagnoses / Procedures Referred By Contac t Referred To Contact [facility] Diagnoses Pain of left heel Procedures XR CALCANEUS 2V AXIAL/LAT LEFT RADEX CALCANEUS MINIMUM 2 VIEWS Silvestre Diana MD [address] [place] [address] [place] [address] Referral ID Status Reason Start Date Expiration Date V isits Requested Visits Authorized [id number] Closed Auto-Generate d Referral 09/29/2023 10/28/2024 1 1 [facility] for visit Narrative* Diagnostic Procedure Only (Routine) - Closed Specialty Diagnoses / Procedures Referred By Contac t Referred To Contact [facility] Diagnoses Chronic right-sided low back pain with right-sided sciatica Procedures XR SACROILIAC JOINTS 2V AP PELVIS/FERGUESON RADIOLOGIC EXAMINATION SACROILIAC JNTS <3 VIEWS Isma Almanza MD [address] [place] [address] [place] [address] Referral ID Status Reason Start Date Expiration Date V isits Requested Visits Authorized [id number] Closed Auto-Generate d Referral 01/18/2022 02/17/2023 1 1 [facility] for visit Narrative* Diagnostic Procedure Only (Urgent) - Closed Specialty Diagnoses / Procedures Referred By Contac t Referred To Contact [facility] Diagnoses Pain of toe of right foot Procedures XR FOOT GENERAL 3V AP/LAT/OBL RIGHT RADEX FOOT COMPLETE MINIMUM 3 VIEWS Delia Abrams, WEALTH MANAGEMENT MANAGER.LYFT DRIVER [address] [place] [address] [place] [address] Referral ID Status Reason Start Date Expiration Date V isits Requested Visits Authorized [id number] Closed Auto-Generate d Referral 07/13/2021 08/12/2022 1 1 [facility] for visit Narrative* Diagnostic Procedure Only (Urgent) - Closed Specialty Diagnoses / Procedures Referred By Contac t Referred To Contact [facility] Diagnoses Left arm swelling Procedures US DVT UPPER LEFT DUP-SCAN XTR VEINS UNILATERAL/LIMITED STUDY Abeba Chase, WEALTH MANAGEMENT MANAGER.EQUIPMENT OPERATOR [employer] YARD [address] [place] [address] [place] [address] Referral ID Status Reason Start Date Expiration Date V isits Requested Visits Authorized [id number] Closed Auto-Generate d Referral 01/17/2024 02/15/2025 1 1 [facility] for visit Narrative* Diagnostic Procedure Only (Urgent) - Closed Specialty Diagnoses / Procedures Referred By Contac t Referred To Contact [facility] Diagnoses Acute pain of left shoulder Procedures XR SHOULDER GENERAL 3V OR MORE AP/TRUE AP/OTHER LEFT RADEX SHOULDER COMPLETE MINIMUM 2 VIEWS Ruben Jain PA [address] [place] [address] [place] [address] Referral ID Status Reason Start Date Expiration Date V isits Requested Visits Authorized [id number] Closed Auto-Generate d Referral 03/26/2024 04/25/[address] [facility] Summary Purpose Family History Relationship Condition Age at Onset Recorded Date/T misha Unknown Family History?No pe rtinent history Unknown April 08, 2018 11:29pm Family History?No pe rtinent history Unknown March 19, 2021 9:26am Relationship Condition Age at Onset Recorded Date/T misha Unknown Family History?No pe rtinent history Unknown April 08, 2018 10:29pm Family History?No pe rtinent history Unknown August 18, 2022 8:06am Relationship Condition Age at Onset Recorded Date/T misha Unknown Family History?No pe rtinent history Unknown April 08, 2018 11:29pm Family History?No pe rtinent history Unknown August 18, 2022 9:06am Advance Directives Documents on File Type Date Recorded 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 Advance Directive(s) 10/07/2016 11:11 AM Advance Directive(s) 09/24/2016 8:01 AM Documents on File Type Date Recorded 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 Advance Directive(s) 10/07/2016 11:11 AM Advance Directive(s) 09/24/2016 8:01 AM Advance Directive Response Recorded Date/ Time Advance Directives No March 19, 2021 9:26am Living Will No March 19 9:26am Power of Custom Bow Maker No March 19 022 9:26am Advance Directive Response Recorded Date/ Time Advance Directives No August 18 8:06am Living Will No January 26, 2 023 9:07pm Power of Custom Bow Maker No January 26, 2023 9:07pm Advance Directive Response Recorded Date/ Time Advance Directives No August 18 8:06am Living Will No May 05, 024 10:51am Power of Custom Bow Maker No May 05, 2023 10:51am Advance Directive Response Recorded Date/ Time Advance Directives No August 18 9:06am Living Will No June 09, 2023 11:10am Power of Custom Bow Maker No June 08 11:10am Advance Directive Response Recorded Date/ Time Advance Directives No August 18 9:06am Living Will No June 22, 2023 1:56pm Power of Custom Bow Maker No June 21 1:56pm Reason for Referral Specialty Diagnoses / Procedures Referred By Kem t Referred To Contact Pulmonary and Critical Care Medicine Diagnoses Cough Shortness of breath Procedures CONSULT TO PULM/CRITICAL CARE OFFICE/OUTPATIENT [facility] MDM 60-74 MINUTES Abeba Chase, WEALTH MANAGEMENT MANAGER.EQUIPMENT OPERATOR [employer]AL YARD [address] [place] [address] Referral ID Status Reason Start Date Expiration Date Visits Requested Visits Authorized [id number] Authorized PCP Requested Referral 06/09/2021 06/09/2022 1 1 Specialty Diagnoses / Procedures Referred By Contac t Referred [facility] Diagnoses Cough Shortness of breath Procedures SPIROMETRY WITH DILATOR IF OBSTRUCTED BRNCDILAT RSPSE SPMTRY PRE&POST-BRNCDILAT ADMN Abeba Chase, WEALTH MANAGEMENT MANAGER.EQUIPMENT OPERATOR INTERMODAL YARD [address] [place] [address] [facility] [place] [address] [place] [address] Referral ID Status Reason Start Date Expiration Date Visits Requested Visits Authorized [id number] Authorized Auto-Generat ed Referral 06/09/2021 07/09/2022 1 1 Specialty Diagnoses / Procedures Referred By Contac t Referred To Contact Ent - Otolaryngology Diagnoses Sore throat Procedures CONSULT TO ENT OFFICE/OUTPATIENT [facility] 60-74 MINUTES Deborah Tobar, WEALTH MANAGEMENT MANAGER.LYFT DRIVER [address] [place] [address] Referral ID Status Reason Start Date Expiration Date Visits Requested Visits Authorized [id number] Authorized PCP Requested Referral 06/09/2022 06/09/2023 1 1 Specialty Diagnoses / Procedures Referred By Contac t Referred To Contact Podiatry Diagnoses Pain of left heel Procedures CONSULT TO PODIATRY OFFICE/OUTPATIENT [facility] MDM 60 MINUTES Silvestre Diana MD [address] [place] [address] Referral ID Status Reason Start Date Expiration Date Visits Requested Visits Authorized [id number] Authorized PCP Requested Referral 09/29/2023 09/28/2024 1 1 Specialty Diagnoses / Procedures Referred By Contac t Referred To Contact [facility] Diagnoses Pain of left heel Procedures XR CALCANEUS 2V AXIAL/LAT LEFT RADEX CALCANEUS MINIMUM 2 VIEWS Silvestre Diana MD [address] [place] [address] [place] [address] Referral ID Status Reason Start Date Expiration Date V isits Requested Visits Authorized [id number] Closed Auto-Generate d Referral 09/29/2023 10/28/2024 1 1 Specialty Diagnoses / Procedures Referred By Contac t Referred To Contact Diagnoses Cough Shortness of breath Abeba Chase APRN.EQUIPMENT OPERATOR INTERMODAL YARD [address] [place] [address] Referral ID Status Reason Start Date Expiration Date Visits Re quested Visits Authorized [id number] Closed 1 1 Specialty Diagnoses / Procedures Referred By Contac t Referred To Contact [facility] Diagnoses Left arm swelling Procedures US DVT UPPER LEFT DUP-SCAN XTR VEINS UNILATERAL/LIMITED STUDY Abeba Chase APRN.EQUIPMENT OPERATOR INTERMODAL YARD [address] [place] [address] [place] [address] Referral ID Status Reason Start Date Expiration Date V isits Requested Visits Authorized [id number] Closed Auto-Generate d Referral 01/17/2024 02/15/2025 1 1 Chief Complaint and Reason for Visit Chief Complaint LEFT WRIST LEFT UPPER PARESTHESIA LEFT UPPER PARESTHESIA Reason for Visit Paresthesia of left upper extremity Chief Complaint dental ABD PAIN Chief Complaint ABD PAIN [facility] ER FU 01/27 epigastric abdominal pain. MEDICATION CHECK abd pain Reason for Visit Abdominal pain Abdominal pain Chief Complaint [facility] ER FU 01/27 epig astric abdominal pain. MEDICATION CHECK abd pain Reason for Visit Abdominal pain Abdominal pain Chief Complaint MEDICATION CHECK abd pain Anxiety Reason for Visit Abdominal pain Medications Administered Section Inactive Administered Medications - [...] ized section and content) DATE CREATED AUTHOR 09/08/2017 [facility] DATE CREATED AUTHOR AUTHOR'S ORGANIZ ATION 08/23/2022 [facility] DATE CREATED AUTHOR AUTHOR'S ORGANIZ ATION 08/23/2022 [facility] DATE CREATED AUTHOR AUTHOR'S ORGANIZ ATION 12/31/2022 [facility] DATE CREATED AUTHOR AUTHOR'S ORGANIZ ATION 01/19/2024 [facility] DATE CREATED AUTHOR AUTHOR'S ORGANIZ ATION 06/10/[address] [facility] DATE CREATED AUTHOR AUTHOR'S ORGANIZ ATION 07/26/2024 [facility] DATE CREATED AUTHOR AUTHOR'S ORGANIZ ATION 2024 [facility] <item><item> Privacy Markings (unrecogniz ed section and [...] or prosecute any alcohol or drug abuse patient.[facility] the event this information is protected by the Federal Confidentiality of Alcohol and Drug Abuse Patient Records regulations: The Federal rules restrict any use of the information to criminally investigate or prosecute any alcohol or drug abuse patient.[facility] the event this information is protected by the Federal Confidentiality of Alcohol and Drug Abuse Patient Records regulations: The Federal rules restrict any use of the information to criminally investigate or prosecute any alcohol or drug abuse patient.[facility] the event this information is protected by the Federal Confidentiality of Alcohol and Drug Abuse Patient Records regulations: The Federal rules restrict any use of the information to criminally investigate or prosecute any alcohol or drug abuse patient.[facility] the event this information is protected by the Federal Confidentiality of Alcohol and Drug Abuse Patient Records regulations: The Federal rules restrict any use of the information to criminally investigate or prosecute any alcohol or drug abuse patient.[facility] the event this information is protected by the Federal Confidentiality of Alcohol and Drug Abuse Patient Records regulations: The Federal rules restrict any use of the information to criminally investigate or prosecute any alcohol or drug abuse patient.[facility] the event this information is protected by the Federal Confidentiality of Alcohol and Drug Abuse Patient Records regulations: The Federal rules restrict any use of the information to criminally investigate or prosecute any alcohol or drug abuse patient.[facility] the event this information is protected by the Federal Confidentiality of Alcohol and Drug Abuse Patient Records regulations: The Federal rules restrict any use of the information to criminally investigate or prosecute any alcohol or drug abuse patient.[facility] the event this information is protected by the Federal Confidentiality of Alcohol and Drug Abuse Patient Records regulations: The Federal rules restrict any use of the information to criminally investigate or prosecute any alcohol or drug abuse patient.[facility] the event this information is protected by the Federal Confidentiality of Alcohol and Drug Abuse Patient Records regulations: The Federal rules restrict any use of the information to criminally investigate or prosecute any alcohol or drug abuse patient.[facility] the event this information is protected by the Federal Confidentiality of Alcohol and Drug Abuse Patient Records regulations: The Federal rules restrict any use of the information to criminally investigate or prosecute any alcohol or drug abuse patient.[facility] the event this information is protected by the Federal Confidentiality of Alcohol and Drug Abuse Patient Records regulations: The Federal rules restrict any use of the information to criminally investigate or prosecute any alcohol or drug abuse patient.[facility] the event this information is protected by the Federal Confidentiality of Alcohol and Drug Abuse Patient Records regulations: The Federal rules restrict any use of the information to criminally investigate or prosecute any alcohol or drug abuse patient.[facility] the event this information is protected by the Federal Confidentiality of Alcohol and Drug Abuse Patient Records regulations: The Federal rules restrict any use of the information to criminally investigate or prosecute any alcohol or drug abuse patient.[facility] the event this information is protected by the Federal Confidentiality of Alcohol and Drug Abuse Patient Records regulations: The Federal rules restrict any use of the information to criminally investigate or prosecute any alcohol or drug abuse patient.[facility] the event this information is protected by the Federal Confidentiality of Alcohol and Drug Abuse Patient Records regulations: The Federal rules restrict any use of the information to criminally investigate or prosecute any alcohol or drug abuse patient.[facility] the event this information is protected by the Federal Confidentiality of Alcohol and Drug Abuse Patient Records regulations: The Federal rules restrict any use of the information to criminally investigate or prosecute any alcohol or drug abuse patient.[facility] the event this information is protected by the Federal Confidentiality of Alcohol and Drug Abuse Patient Records regulations: The Federal rules restrict any use of the information to criminally investigate or prosecute any alcohol or drug abuse patient.[facility] HospitalIn the event this information is protected by the Federal Confidentiality of Alcohol and Drug Abuse Patient Records regulations: The Federal rules restrict any use of the information to criminally investigate or prosecute any alcohol or drug abuse patient.[facility] HospitalIn the event this information is protected by the Federal Confidentiality of Alcohol and Drug Abuse Patient Records regulations: The Federal rules restrict any use of the information to criminally investigate or prosecute any alcohol or drug abuse patient.[facility] HospitalIn the event this information is protected by the Federal Confidentiality of Alcohol and Drug Abuse Patient Records regulations: The Federal rules restrict any use of the information to criminally investigate or prosecute any alcohol or drug abuse patient.[facility] HospitalIn the event this information is protected by the Federal Confidentiality of Alcohol and Drug Abuse Patient Records regulations: The Federal rules restrict any use of the information to criminally investigate or prosecute any alcohol or drug abuse patient.[facility] HospitalIn the event this information is protected by the Federal Confidentiality of Alcohol and Drug Abuse Patient Records regulations: The Federal rules restrict any use of the information to criminally investigate or prosecute any alcohol or drug abuse patient.[facility] HospitalIn the event this information is protected by the Federal Confidentiality of Alcohol and Drug Abuse Patient Records regulations: The Federal rules restrict any use of the information to criminally investigate or prosecute any alcohol or drug abuse patient.[facility] HospitalIn the event this information is protected by the Federal Confidentiality of Alcohol and Drug Abuse Patient Records regulations: The Federal rules restrict any use of the information to criminally investigate or prosecute any alcohol or drug abuse patient.[facility] HospitalIn the event this information is protected by the Federal Confidentiality of Alcohol and Drug Abuse Patient Records regulations: The Federal rules restrict any use of the information to criminally investigate or prosecute any alcohol or drug abuse patient.[facility] HospitalIn the event this information is protected by the Federal Confidentiality of Alcohol and Drug Abuse Patient Records regulations: The Federal rules restrict any use of the information to criminally investigate or prosecute any alcohol or drug abuse patient.[facility] HospitalIn the event this information is protected by the Federal Confidentiality of Alcohol and Drug Abuse Patient Records regulations: The Federal rules restrict any use of the information to criminally investigate or prosecute any alcohol or drug abuse patient.[facility] HospitalIn the event this information is protected by the Federal Confidentiality of Alcohol and Drug Abuse Patient Records regulations: The Federal rules restrict any use of the information to criminally investigate or prosecute any alcohol or drug abuse patient.[facility] HospitalIn the event this information is protected by the Federal Confidentiality of Alcohol and Drug Abuse Patient Records regulations: The Federal rules restrict any use of the information to criminally investigate or prosecute any alcohol or drug abuse patient.[facility] HospitalIn the event this information is protected by the Federal Confidentiality of Alcohol and Drug Abuse Patient Records regulations: The Federal rules restrict any use of the information to criminally investigate or prosecute any alcohol or drug abuse patient.[facility] HospitalIn the event this information is protected by the Federal Confidentiality of Alcohol and Drug Abuse Patient Records regulations: The Federal rules restrict any use of the information to criminally investigate or prosecute any alcohol or drug abuse patient.[facility] HospitalIn the event this information is protected by the Federal Confidentiality of Alcohol and Drug Abuse Patient Records regulations: The Federal rules restrict any use of the information to criminally investigate or prosecute any alcohol or drug abuse patient.[facility] HospitalIn the event this information is protected by the Federal Confidentiality of Alcohol and Drug Abuse Patient Records regulations: The Federal rules restrict any use of the information to criminally investigate or prosecute any alcohol or drug abuse patient.[facility] HospitalIn the event this information is protected by the Federal Confidentiality of Alcohol and Drug Abuse Patient Records regulations: The Federal rules restrict any use of the information to criminally investigate or prosecute any alcohol or drug abuse patient.[facility] HospitalIn the event this information is protected by the Federal Confidentiality of Alcohol and Drug Abuse Patient Records regulations: The Federal rules restrict any use of the information to criminally investigate or prosecute any alcohol or drug abuse patient.[facility] HospitalIn the event this information is protected by the Federal Confidentiality of Alcohol and Drug Abuse Patient Records regulations: The Federal rules restrict any use of the information to criminally investigate or prosecute any alcohol or drug abuse patient.[facility] HospitalIn the event this information is protected by the Federal Confidentiality of Alcohol and Drug Abuse Patient Records regulations: The Federal rules restrict any use of the information to criminally investigate or prosecute any alcohol or drug abuse patient.[facility] HospitalIn the event this information is protected by the Federal Confidentiality of Alcohol and Drug Abuse Patient Records regulations: The Federal rules restrict any use of the information to criminally investigate or prosecute any alcohol or drug abuse patient.[facility] HospitalIn the event this information is protected by the Federal Confidentiality of Alcohol and Drug Abuse Patient Records regulations: The Federal rules restrict any use of the information to criminally investigate or prosecute any alcohol or drug abuse patient.[facility] HospitalIn the event this information is protected by the Federal Confidentiality of Alcohol and Drug Abuse Patient Records regulations: The Federal rules restrict any use of the information to criminally investigate or prosecute any alcohol or drug abuse patient.[facility] HospitalIn the event this information is protected by the Federal Confidentiality of Alcohol and Drug Abuse Patient Records regulations: The Federal rules restrict any use of the information to criminally investigate or prosecute any alcohol or drug abuse patient.[facility] HospitalIn the event this information is protected by the Federal Confidentiality of Alcohol and Drug Abuse Patient Records regulations: The Federal rules restrict any use of the information to criminally investigate or prosecute any alcohol or drug abuse patient.[facility] HospitalIn the event this information is protected by the Federal Confidentiality of Alcohol and Drug Abuse Patient Records regulations: The Federal rules restrict any use of the information to criminally investigate or prosecute any alcohol or drug abuse patient.[facility] HospitalIn the event this information is protected by the Federal Confidentiality of Alcohol and Drug Abuse Patient Records regulations: The Federal rules restrict any use of the information to criminally investigate or prosecute any alcohol or drug abuse patient.[facility] HospitalIn the event this information is protected by the Federal Confidentiality of Alcohol and Drug Abuse Patient Records regulations: The Federal rules restrict any use of the information to criminally investigate or prosecute any alcohol or drug abuse patient.[facility] HospitalIn the event this information is protected by the Federal Confidentiality of Alcohol and Drug Abuse Patient Records regulations: The Federal rules restrict any use of the information to criminally investigate or prosecute any alcohol or drug abuse patient.[facility] HospitalIn the event this information is protected by the Federal Confidentiality of Alcohol and Drug Abuse Patient Records regulations: The Federal rules restrict any use of the information to criminally investigate or prosecute any alcohol or drug abuse patient.[facility] HospitalIn the event this information is protected by the Federal Confidentiality of Alcohol and Drug Abuse Patient Records regulations: The Federal rules restrict any use of the information to criminally investigate or prosecute any alcohol or drug abuse patient.[facility] HospitalIn the event this information is protected by the Federal Confidentiality of Alcohol and Drug Abuse Patient Records regulations: The Federal rules restrict any use of the information to criminally investigate or prosecute any alcohol or drug abuse patient.[facility] HospitalIn the event this information is protected by the Federal Confidentiality of Alcohol and Drug Abuse Patient Records regulations: The Federal rules restrict any use of the information to criminally investigate or prosecute any alcohol or drug abuse patient.[facility] HospitalIn the event this information is protected by the Federal Confidentiality of Alcohol and Drug Abuse Patient Records regulations: The Federal rules restrict any use of the information to criminally investigate or prosecute any alcohol or drug abuse patient.[facility] HospitalIn the event this information is protected by the Federal Confidentiality of Alcohol and Drug Abuse Patient Records regulations: The Federal rules restrict any use of the information to criminally investigate or prosecute any alcohol or drug abuse patient.[facility] HospitalIn the event this information is protected by the Federal Confidentiality of Alcohol and Drug Abuse Patient Records regulations: The Federal rules restrict any use of the information to criminally investigate or prosecute any alcohol or drug abuse patient.[facility] HospitalIn the event this information is protected by the Federal Confidentiality of Alcohol and Drug Abuse Patient Records regulations: The Federal rules restrict any use of the information to criminally investigate or prosecute any alcohol or drug abuse patient.[facility] HospitalIn the event this information is protected by the Federal Confidentiality of Alcohol and Drug Abuse Patient Records regulations: The Federal rules restrict any use of the information to criminally investigate or prosecute any alcohol or drug abuse patient.[facility] HospitalIn the event this information is protected by the Federal Confidentiality of Alcohol and Drug Abuse Patient Records regulations: The Federal rules restrict any use of the information to criminally investigate or prosecute any alcohol or drug abuse patient.[facility] HospitalIn the event this information is protected by the Federal Confidentiality of Alcohol and Drug Abuse Patient Records regulations: The Federal rules restrict any use of the information to criminally investigate or prosecute any alcohol or drug abuse patient.[facility] HospitalIn the event this information is protected by the Federal Confidentiality of Alcohol and Drug Abuse Patient Records regulations: The Federal rules restrict any use of the information to criminally investigate or prosecute any alcohol or drug abuse patient.[facility] HospitalIn the event this information is protected by the Federal Confidentiality of Alcohol and Drug Abuse Patient Records regulations: The Federal rules restrict any use of the information to criminally investigate or prosecute any alcohol or drug abuse patient.[facility] Reason for Visit (unrecogniz ed section and content) Reason Comments urgent care f/u Reason Onset Date Comments Refill Request 06/30/2021 Reason Onset Date Comments Refill Request 2021 Reason Comments Spirometry Specialty Diagnoses / Procedures Referred By Contac t Referred To Contact [facility] Diagnoses Cough Shortness of breath Procedures SPIROMETRY WITH DILATOR IF OBSTRUCTED BRNCDILAT RSPSE SPMTRY PRE&POST-BRNCDILAT ADMN Abeba Chase, WEALTH MANAGEMENT MANAGER.EQUIPMENT OPERATOR [employer] [address] [place] [address] [facility] [place] [address] [place] [address] Referral ID Status Reason Start Date Expiration Date V isits Requested Visits Authorized [id number] Closed Auto-Generate d Referral 06/09/2021 07/09/2022 1 1 Specialty Diagnoses / Procedures Referred By Contac t Referred To Contact [facility] Diagnoses Cough Procedures NITRIC OXIDE, EXHALED NITRIC OXIDE GAS DETERMINATION Kimberly Flowers MD [address] [place] [address] [facility] [place] [address] [place] [address] Referral ID Status Reason Start Date Expiration Date V isits Requested Visits Authorized [id number] Closed Auto-Generate d Referral 07/14/2021 08/13/2022 1 1 Reason Onset Date Comments Refill Request 08/30/2021 Reason Comments Depression Reason Comments Consult Initial [facility] Pt Outr each Reason Onset Date Comments Refill Request 11/10/2021 Reason Comments left sciatic pain X 1 week Reason Comments Recheck discuss medication-p rozac and adipex Reason Comments Recheck Adipex follow up Reason Comments Pelvic Pain Reason Comments Results Reason Onset Date Comments Colposcopy Gardasil Injection 03/30/2022 Specialty Diagnoses / Procedures Referred By Contignacio t Referred To Contact [facility] Diagnoses 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 Procedures COLPOSCOPY COLPOSCOPY CERVIX BX CERVIX & ENDOCRV CURRETAGE Amy Pineda MD [facility] [place] [address] [facility] [address] [place] [id number] Referral ID Status Reason Start Date Expiration Date V isits Requested Visits Authorized [id number] Closed Auto-Generate d Referral 03/23/2022 03/23/2023 1 [...] Weight Loss wanting to restart p hetermine Reason Comments Pelvic Pain Reason Comments Nausea x this am Reason Comments Radiology US Specialty Diagnoses / Procedures Referred By Contac t Referred To Contact [facility] Diagnoses Ovarian cyst, right Procedures US FEMALE PELVIS TRANSVAG US TRANSVAGINAL Amy Pineda MD [address] [place] [address] [place] [address] Referral ID Status Reason Start Date Expiration Date V isits Requested Visits Authorized [id number] Closed Auto-Generate d Referral 05/23/2023 06/21/2024 1 1 Reason Comments Pain Left shoulder into n ming pain x 3 days increasing, started after sleeping on a couch Reason Comments Dental Problem Left lower tooth ansley n x1 mth Reason Comments Pain (foot) Left foot pain, swol thao lump on heel x 2 weeks Reason Comments Same Day Appointment was on meloxicam, d /c'd x 1 week ago wants celebrex to help with plantar fasciitis Reason Comments New Swelling Pain Specialty Diagnoses / Procedures Referred By Kem marti Referred To Contact Podiatry Diagnoses Pain of left heel Procedures CONSULT TO PODIATRY OFFICE/OUTPATIENT NEW HIGH MDM 60 MINUTES Silvestre Diana MD [address] [place] [address] Referral ID Status Reason Start Date Expiration Date V isits Requested Visits Authorized [id number] Closed PCP Requested Referral 09/29/2023 09/28/2024 1 1 Reason Comments Urinary Problem Frequency, lower abd ominal pain, burning with urination Reason Onset Date Comments Refill Request 12/16/2023 Reason Comments Lump L side ribcage area Reason Comments Shoulder Injury left shoulder pain r ecurring, increased x 3 days after shoveling snow Reason Comments Sore Throat ST x 1 day Reason Comments Cough wheezing and sob x 4 days Reason Comments Eye Problem Possible BLANCA pink ey e x 3 days Care Teams (unrecognized sec tion and content) Manager Store Relationship Specialty Start Date End Date Isma Almanza MD [address] [place], [place] [id number] PCP - General Internal Medicine 07/14/16 Manager Store Relationship Specialty Start Date End Date Isma Almanza MD [address] [place], [place] [id number] PCP - General Internal Medicine 07/14/16 Manager Store Relationship Specialty Start Date End Date Isma Almanza MD [address] [place] [address] PCP - General Internal Medicine 07/14/16 Manager Store Relationship Specialty Start Date End Date Isma Almanza MD [address] [place] [address] PCP - General Internal Medicine 07/14/16 Manager Store Relationship Specialty Start Date End Date Isma Almanza MD [address] [place] [address] PCP - General Internal Medicine 07/14/16 Manager Store Relationship Specialty Start Date End Date Isma Almanza MD [address] [place] [address] PCP - General Internal Medicine 07/14/16 Manager Store Relationship Specialty Start Date End Date Isma Almanza MD [address] [facility] [place] [address] PCP - General Internal Medicine 07/14/16 Manager Store Relationship Specialty Start Date End Date Isma Almanza MD [address] [place] [address] PCP - General Internal Medicine 07/14/16 Manager Store Relationship Specialty Start Date End Date Isma Almanza MD [address] [place] [address] PCP - General Internal Medicine 07/14/16 Manager Store Relationship Specialty Start Date End Date Isma Almanza MD [address] [facility] [place] [address] PCP - General Internal Medicine 07/14/16 Manager Store Relationship Specialty Start Date End Date Isma Almanza MD [address] [place] [address] PCP - General Internal Medicine 07/14/16 Manager Store Relationship Specialty Start Date End Date Isma Almanza MD [address] [place] [address] PCP - General Internal Medicine 07/14/16 Manager Store Relationship Specialty Start Date End Date Isma Almanza MD [address] [facility] [place] [address] PCP - General Internal Medicine 07/14/16 Manager Store Relationship Specialty Start Date End Date Isma Almanza MD [address] [place] [address] PCP - General Internal Medicine 07/14/16 Manager Store Relationship Specialty Start Date End Date Isma Almanza MD [address] [place] [address] PCP - General Internal Medicine 07/14/16 Manager Store Relationship Specialty Start Date End Date Isma Almanza MD [address] [facility] [place] [address] PCP - General Internal Medicine 07/14/16 Manager Store Relationship Specialty Start Date End Date Isma Almanza MD [address] [facility] [place] [address] PCP - General Internal Medicine 07/14/16 Manager Store Relationship Specialty Start Date End Date Isma Almanza MD [address] [facility] [place] [address] PCP - General Internal Medicine 07/14/16 Manager Store Relationship Specialty Start Date End Date Isma Almanza MD [address] [facility] [place] [address] PCP - General Internal Medicine 07/14/16 Manager Store Relationship Specialty Start Date End Date Isma Almanza MD [address] [place] [address] PCP - General Internal Medicine 07/14/16 Manager Store Relationship Specialty Start Date End Date Isma Almanza MD [address] [place] [address] PCP - General Internal Medicine 07/14/16 Manager Store Relationship Specialty Start Date End Date Isma Almanza MD [address] [place] [address] PCP - General Internal Medicine 07/14/16 Manager Store Relationship Specialty Start Date End Date Isma Almanza MD [address] [place] [address] PCP - General Internal Medicine 07/14/16 Team Status: Active Member Role Status Dates Dr. Isma Almanza MD Family Provider Active Dr. Isma Almanza MD Primary Care Provider Active Team Status: Inactive Member Role Status Dates Dr. Isma Almanza MD Primary Care Provider Active Dr. Sebas Sy MD Attending Provider, Emergency Provider Active Team Status: Inactive Member Role Status Dates Dr. Isma Almanza MD Primary Care Provider Active Dr. Yolanda Dumont DO Emergency Provider Active Manager Store Relationship Specialty Start Date End Date Isma Almanza MD [address] [place] [address] PCP - General Internal Medicine 07/14/16 Manager Store Relationship Specialty Start Date End Date Isma Almanza MD [address] [place] [address] PCP - General Internal Medicine 07/14/16 Team Status: Inactive Member Role Status Dates Dr. Isma Almanza MD Primary Care Provider Active Dr. Umesh Jimenez MD Attending Provider Active Dr. Yolanda Dumont DO Referring Provider Active Team Status: Inactive Member Role Status Dates Dr. Isma Almanza MD Primary Care Provider, Referring Provider Active Dr. Umesh Jimenez MD Attending Provider Active Team Status: Inactive Member Role Status Dates Dr. Isma Almanza MD Primary Care Provider Active Dr. Yolanda Dumont DO Attending Provider, Emergency P jermain Active Team Status: Inactive Member Role Status Dates Dr. Isma Almanza MD Primary Care Provider Active Dr. Toña Horton MD Emergency Provider Active Manager Store Relationship Specialty Start Date End Date Isma Almanza MD [address] [place] [address] PCP - General Internal Medicine 07/14/16 Manager Store Relationship Specialty Start Date End Date Isma Almanza MD [address] [place] [address] PCP - General Internal Medicine 07/14/16 Team Status: Active Member Role Status Dates Dr. Isma Almanza MD Primary Care Provider, Referring Provider Active Dr. Umesh Jimenez MD Attending Provider, Other Provider Active Team Status: Inactive Member Role Status Dates Dr. Isma Almanza MD Primary Care Provider Active Dr. Toña Horton MD Attending Provider, Emergency Provider Active Team Status: Inactive Member Role Status Dates Dr. Isma Almanza MD Primary Care Provider Active Dr. Rickie Altamirano DO Emergency Provider Active Manager Store Relationship Specialty Start Date End Date Isma Almanza MD [address] [place] [address] PCP - General Internal Medicine 07/14/16 Manager Store Relationship Specialty Start Date End Date Isma Almanza MD [address] [place] [address] PCP - General Internal Medicine 07/14/16 Manager Store Relationship Specialty Start Date End Date Isma Almanza MD [address] [place] [address] PCP - General Internal Medicine 07/14/16 Manager Store Relationship Specialty Start Date End Date Isma Almanza MD [address] [place] [address] PCP - General Internal Medicine 07/14/16 Manager Store Relationship Specialty Start Date End Date Isma Almanza MD [address] [place] [address] PCP - General Internal Medicine 07/14/16 Manager Store Relationship Specialty Start Date End Date Isma Almanza MD [address] [place] [address] PCP - General Internal Medicine 07/14/16 Manager Store Relationship Specialty Start Date End Date Isma Almanza MD [address] [place] [address] PCP - General Internal Medicine 07/14/16 Manager Store Relationship Specialty Start Date End Date Isma Almanza MD [address] [place] [address] PCP - General Internal Medicine 07/14/16 Manager Store Relationship Specialty Start Date End Date Isma Almanza MD [address] [place] [address] PCP - General Internal Medicine 07/14/16 Manager Store Relationship Specialty Start Date End Date Isma Almanza MD [address] [place] [address] PCP - General Internal Medicine 07/14/16 Manager Store Relationship Specialty Start Date End Date Isma Almanza MD [address] [place] [address] PCP - General Internal Medicine 07/14/16 Manager Store Relationship Specialty Start Date End Date Isma Almanza MD [address] [place] [address] PCP - General Internal Medicine 07/14/16 Janice Molina PA-C [address] [place] [address] Executive Chef Assistant Family Medicine 02/19/24 Krupa Ku APRN.LYFT DRIVER [address] [place] [address] Executive Chef Assistant Internal Medicine 02/19/24 Monica Dumont PA-C [address] [place] [address] Executive Chef Assistant Family Medicine 02/19/24 Manager Store Relationship Specialty Start Date End Date Isma Almanza MD [address] [place] [address] PCP - General Internal Medicine 07/14/16 Janice Molina PA-C [address] [place] [id number] Executive Chef Assistant Family Medicine 02/19/24 Krupa Ku APRN.LYFT DRIVER [address] [place] [address] Executive Chef Assistant Internal Medicine 02/19/24 Monica Dumont PA-C [address] [place] [address] Executive Chef Assistant Family Medicine 02/19/24 Manager Store Relationship Specialty Start Date End Date Isma Almanaz MD [address] [place] [address] PCP - General Internal Medicine 07/14/16 Janice Molina PA-C [address] [place] [id number] Executive Chef Assistant Family Medicine 02/19/24 Krupa Ku APRN.LYFT DRIVER [address] [place] [address] Executive Chef Assistant Internal Medicine 02/19/24 Monica Dumont PA-C [address] [place] [address] Executive Chef Assistant Family Medicine 02/19/24 Manager Store Relationship Specialty Start Date End Date Isma Almanza MD [address] [place] [address] PCP - General Internal Medicine 07/14/16 Krupa Ku APRN.LYFT DRIVER [address] [facility] [place] [address] Executive Chef Assistant Internal Medicine 02/19/24 Manager Store Relationship Specialty Start Date End Date Isma Almanza MD [address] [place] [address] PCP - General Internal Medicine 07/14/16 Krupa Ku APRN.LYFT DRIVER [address] [place] [address] Executive Chef Assistant Internal Medicine 02/19/24 Manager Store Relationship Specialty Start Date End Date Isma Almanza MD [address] [place] [address] PCP - General Internal Medicine 07/14/16 Krupa Ku APRN.ANKIT [address] [facility] [place] [address] Executive Chef Assistant Internal Medicine 02/19/24 Goals (unrecognized section and content) Goals may be documented in a n alternate sectionGoals may be documented in an alternate sectionGoals may be documented in an alternate section No data available for this section FOR RECORDS PERTAINING TO PATIENTS WHO ARE [...] BE BASED ON THE PRIMARY CLINICAL RECORDS. [employer] [facility]. provides no warranty or guarantee of the accuracy or completeness of information in this document.
[2024-08-21] MEDS: Ondansetron ODT 4 MG Tablet PO (04:01)
[2024-08-21] MEDS: HYDROcodone Bitartrate/Apap 5/325 Tablet PO (04:01)
[2024-08-21] MEDS: Diphth,Pertuss(Acell),Tet Vac 0.5 ML Vial IM (04:02)
[2024-08-21 05:10] VITALS: BP 152/86; PULSE 98; RESP 18; TEMP 36.7; O2SAT 100
== END 2024-08-21 05:20 | disposition home or self-care (01) ==
PROVIDERS: Emergency Provider Emergency Medicine; PCP Internal Medicine; Visit Provider Emergency Medicine
DX: S81.022A Laceration with foreign body, left knee, initial encounter (principal); M79.641 Pain in right hand; M25.522 Pain in left elbow; W19.XXXA Unspecified fall, initial encounter; Z23 Encounter for immunization; J45.909 Unspecified asthma, uncomplicated; F32.A Depression, unspecified; F41.9 Anxiety disorder, unspecified; F17.210 Nicotine dependence, cigarettes, uncomplicated; Z79.899 Other long term (current) drug therapy
CPT/HCPCS: 12002; 73080; 73130; 73562; 90471; 90715; 99285

== ENCOUNTER 2024-08-21 15:55 | Emergency (ER) | payer MEDICAID, SELFPAY ==
[2024-08-21 15:56] VITALS: BP 153/107; PULSE 106; RESP 20; TEMP 36.4; O2SAT 96
[2024-08-21 16:24] VITALS: BMI 41.4
--- NOTE | 2024-08-21 16:27 | EDS_ITS ---
HPI History of Present Illness HPI Narrative: Patient presents with left knee pain that began last night after a fall. Patient was seen here after the fall and had sutures placed in a large laceration over the anterior aspect of her knee. Patient states the pain has gotten worse today. Patient denies any new injuries. Patient denies any fevers or chills. Patient denies any discharge or drainage. Patient denies any paresthesias or weakness. Patient states her pain is worse with any weightbearing. Patient states it is better with elevation. Patient describes her pain as burning and stabbing. Chief Complaint: Lower Extremity Injury Informant: patient Occured/Mechanism Mechanism/Context: Yes fall Onset/Context/Timing Onset: Yesterday Context: Sudden Onset Timing: Continuous Quality of Pain: Burning and Stabbing Location: Left knee Worsened by: Weightbearing Relieved by: Elevation Associated Symptoms Associated Symptoms: Negative for Parasthesia, Weakness or Loss of Funtion Narrative Tetanus Immunization: <5 years PFSH [facility] Medical History Abnormal endoscopy of upper gastrointestinal tract Wears glasses Depression Dietary restriction Heartburn Gastric reflux Smoker Urinary tract infection with hematuria COVID-19 Asthma no medical history Home Medications ?Medication ?Instructions ?Recorded ?Last Taken ?Type etonogestrel 68 mg subdermal 1 implant subdermal ONCE 07/20/21 12/28/23 History implant (Nexplanon) albuterol sulfate 90 mcg/actuation 2 inh inhalation Q6 H 12/19/23 Unknown History breath activated powder inhaler,sensor montelukast 10 mg tablet 10 mg PO DAILY 12/19/2312/12 History (Singulair) pantoprazole 40 mg tablet,delayed 40 mg PO DAILY 12/1812/27/23 History release brexpiprazole 1 mg tablet 1 mg PO DAILY #90 tabs 08/16 Unknown Rx hydroxyzine HCl 25 mg tablet 25 mg PO TID PRN anxiety #90 tabs 08/16/24 Unknown Rx propranolol 10 mg tablet 10 mg PO TID PRN anxiety #90 tabs 08/16/24 Unknown Rx trazodone 50 mg tablet 50 mg PO QHS PRN insomnia #9 0 tabs 08/16/24 Unknown Rx venlafaxine 150 mg 150 mg PO DAILY #90 caps 08/05 Unknown Rx capsule,extended release 24 hr buspirone 15 mg tablet 15 mg PO TID PRN anxiety 01/05 Unknown History hydrocodone-acetaminophen 5-325mg 1 tab PO Q6H PRN PRN Pain 3 days 08/21/24 Unknown Rx 5mg-325mg #10 TABLETS Allergy/AdvReac Type Severity Reaction Status Date / Time No Known Drug Allergies Allergy Other Verified 08/21/24 15:57 Surgical History History of esophagogastroduodenoscopy (EGD) History of wisdom tooth extraction History of carpal tunnel surgery (~2017) History of Social History Smoking Status: Current every day smoker tobacco type: cigarettes alcohol intake: never substance use type: does not use what type of physical activity do you participate in: walking ROS ROS ED Constitutional Constitutional ED: Denies chills or fever(s) Eyes Eyes: Denies blurry vision or change in vision ENT ENT ED: Denies rhinorrhea or sore throat Cardiovascular Cardiovascular: Denies chest pain or palpitations Respiratory/Chest Respiratory/Chest: Denies cough or dyspnea Gastrointestinal Gastrointestinal: Reports nausea; Denies vomiting Genitourinary Genitourinary ED: Denies dysuria or hematuria Musculoskeletal Musculoskeletal: Denies back pain or neck pain Integumentary Denies abscess or rash Neurologic Neurologic: Denies headache(s) or weakness Allergic/Immunologic Allergic/Immunologic ED: Denies mouth swelling or urticaria EXAM Physical Exam Const Vital Signs: 08/21/24 15:56 Temperature 97.6 F L Temperature Source Oral Pulse Rate 106 H Respiratory Rate 20 H Blood Pressure 153/107 H Blood Pressure Mean 122 Pulse Ox 96 Oxygen Delivery Method Room Air Positive well nourished and well developed General Appearance ED: well developed and NAD HEENT Reports moist mucous membranes normocephalic and atraumatic Neck full ROM and supple Extremity Extremity Narrative: There is diffuse tenderness over the left knee. There are 2 sutured lacerations on the anterior aspect of the left knee. There is no discharge or drainage. There is no erythema or warmth. Range of motion was limited in all motions of the left knee secondary to pain. Extensor mechanism is intact. Strength is 5/5 bilaterally lower extremities. There are no sensory deficits noted. General Extremety ED: Yes weight-bearing difficulty General Extremity: weight-bearing difficulty Neuro oriented x3, CN's II-XII intact bilaterally, moves all extremities and no sensory deficits noted Sensorium / Orientation: alert Motor Exam: strength 5/5 throughout Psych mental status grossly normal MDM MDM MDM Narrative Medical decision making narrative: Patient was advised that her pain is likely due to soft tissue injuries. I did review the x-rays from earlier this morning. There is no fracture. I do not feel there is a reason to repeat any x-rays. Patient was instructed to continue to ice and elevate her left leg. Patient was given a prescription for a short course of [place]. Patient was given crutches. Smoking cessation was briefly discussed. Patient was instructed to follow-up in 10 days as scheduled. Patient understood and was agreeable with the plan. All questions were answered. Discharge Plan Triage Chief Complaint: Lower Extremity Injury ED Provider: Joe Simmons Dx/Rx/DC Orders Clinical Impression: Pain of left knee after injury, Laceration, Fall, Tobacco use Instructions: Reducing Knee Pain and Swelling, ED Contusion, Lower Extremity, ED Laceration Extremity, ED How to Quit Smoking Prescriptions: New hydrocodone-acetaminophen 5-325 mg tablet 1 tab PO Q6H PRN PRN (Reason: Pain) 3 Days Qty: 10 0RF No Action Nexplanon 68 mg implant 1 implant subdermal ONCE Rx Instructions: as a single dose pantoprazole 40 mg tablet,delayed release (DR/EC) 40 mg PO DAILY montelukast [Singulair] 10 mg tablet 10 mg PO DAILY albuterol sulfate 90 mcg/actuation aero powdr breath act w/sensor 2 inh inhalation Q6H buspirone 15 mg tablet 15 mg PO TID PRN (Reason: anxiety) brexpiprazole 1 mg tablet 1 mg PO DAILY Qty: 90 1RF hydroxyzine HCl 25 mg tablet 25 mg PO TID PRN (Reason: anxiety) Qty: 90 1RF propranolol 10 mg tablet 10 mg PO TID PRN (Reason: anxiety) Qty: 90 0RF trazodone 50 mg tablet 50 mg PO QHS PRN (Reason: insomnia) Qty: 90 1RF venlafaxine 150 mg capsule,extended release 24hr 150 mg PO DAILY Qty: 90 1RF Primary Care Provider: Jennifer Dia Referrals: Jennifer Dia MD [Primary Care Provider] - 10 Day for suture removal Print Language: [place] Disposition Disposition: Home, Self Care
== END 2024-08-21 17:28 | disposition home or self-care (01) ==
PROVIDERS: Emergency Provider Emergency Medicine; PCP Internal Medicine; Visit Provider Emergency Medicine
DX: S81.012A Laceration without foreign body, left knee, initial encounter (principal); W19.XXXA Unspecified fall, initial encounter; J45.909 Unspecified asthma, uncomplicated; K21.9 Gastro-esophageal reflux disease without esophagitis; F17.210 Nicotine dependence, cigarettes, uncomplicated; Z79.899 Other long term (current) drug therapy
CPT/HCPCS: 99284

== ENCOUNTER 2024-10-11 10:15 | Outpatient (RCR) | payer MEDICAID, SELFPAY ==
[2024-10-04 10:40] VITALS: BP 156/112; PULSE 119; RESP 16; TEMP 36.6; BMI 37.0
--- NOTE | 2024-10-04 11:23 | PCM.WC.HP ---
History of Present Illness Date of Service: 10/04/24 Chief Complaint: Non healing left knee wound History of Wound: Ms. Tang is a 34-year-old who presents to the wound center due to nonhealing left knee wound. Sustained on the 21 of August, she states that she was walking down an incline and fell on some rocks. Since then, has been seen in emergency rooms and treated with antibiotics twice due to concern for infection/cellulitis. Completed last antibiotic 2 weeks ago. Prior concerns for purulent drainage. She also states that she had imaging due to concern for retained foreign body. Has been doing dressing changes at home using Bactroban without any significant improvement and so was referred here. No history of diabetes. History of tobacco use and is smoked for about 16 years. She states that she is trying to cut down and now smokes half a pack a day. Otherwise, she states that she feels well. Appetite is good. [facility] Medical History (Updated 10/04/24 @ 11:[address] Marlon Irwin MD) Edema of left lower extremity Laceration of left knee Abnormal endoscopy of upper gastrointestinal tract Wears glasses Depression Dietary restriction Heartburn Gastric reflux Smoker Urinary tract infection with hematuria COVID-19 Asthma Home Medications ?Medication ?Instructions ?Recorded ?Last Taken ?Type etonogestrel 68 mg subdermal 1 implant subdermal ONCE 07/20/21 12/28/23 History implant (Nexplanon) albuterol sulfate 90 mcg/actuation 2 inh inhalation Q6H 12/19/23 Unknown History breath activated powder inhaler,sensor montelukast 10 mg tablet 10 mg PO DAILY 12/19/23 12/27/23 History (Singulair) pantoprazole 40 mg tablet,delayed 40 mg PO DAILY 12/19/23 12/27/23 History release brexpiprazole 1 mg tablet 1 mg PO DAILY #90 tabs 08/16/24 Unknown Rx hydroxyzine HCl 25 mg tablet 25 mg PO TID PRN anxiety #90 tabs 08/16/24 Unknown Rx propranolol 10 mg tablet 10 mg PO TID PRN anxiety #90 tabs 08/16/24 Unknown Rx trazodone 50 mg tablet 50 mg PO QHS PRN insomnia #90 tabs 08/16/24 Unknown Rx venlafaxine 150 mg 150 mg PO DAILY #90 caps 08/16/24 Unknown Rx capsule,extended release 24 hr buspirone 15 mg tablet 15 mg PO TID PRN anxiety 08/21/24 Unknown History hydrocodone-acetaminophen 5-325mg 1 tab PO Q6H PRN PRN Pain 3 days 08/21/24 Unknown Rx 5mg-325mg #10 TABLETS celecoxib 200 mg capsule 200 mg PO DAILY 10/04/24 Unknown History fluticasone propionate 230 2 puff inhalation BID 10/04/24 Unknown History mcg-salmeterol 21 mcg/actuation HFA inhaler (Advair HFA) Allergy/AdvReac Type Severity Reaction Status Date / Time No Known Drug Allergies Allergy Other Verified 10/04/24 10:32 Surgical History History of esophagogastroduodenoscopy (EGD) History of wisdom tooth extraction History of carpal tunnel surgery (~2017) History of Social History Smoking Status: Current every day smoker tobacco type: cigarettes alcohol intake: never substance use type: does not use what type of physical activity do you participate in: walking ROS Constitutional Constitutional: Denies body ache(s), chills, fatigue, fever(s), frequent falls or headache(s) Eyes Eyes: Denies change in eye color, change in vision, discharge from eye(s), discongugate gaze, double vision or dry eyes ENT HEENT: Denies epistaxis, foreign body in nose, halitosis, headache(s), hearing loss or mouth pain Cardiovascular Cardiovascular: Denies chest pain at rest, chest pain with activity, cold extremities, cyanosis, dyspnea at rest or erythema on extremities Respiratory/Chest Respiratory/Chest: Denies difficulty clearing secretions, dyspnea on exertion, excessive phlegm production, hemoptysis, hoarseness or nail bed cyanosis Gastrointestinal Gastrointestinal: Denies abdominal pain, bloating, change in bowel habits, chewing difficulty, coffee ground emesis or excessive flatus Genitourinary Genitourinary: Denies abdominal discomfort, burning urination, difficulty urinating, flank pain or genital lesions Musculoskeletal Musculoskeletal: Reports joint swelling; Denies atrophy, difficulty walking, muscle weakness, tingling or tremors Integumentary Integumentary: Reports wounds; Denies change in pigmentation, erythema, furuncle, pruritus or rash Neurologic Neurologic: Denies behavior changes, burning sensations, confusion, convulsions, dizziness, headache(s) or lack of coordination Psychiatric Psychiatric: Denies auditory hallucinations, behavioral changes, difficulty concentrating, hallucinations, memory loss, tactile hallucinations or visual hallucinations Endocrine Endocrinology: Denies cold intolerance, deepening of the voice, excessive sweating, flushing, heat intolerance or increase in ring/shoe/hat size Hematologic/Lymphatic Hematologic/Lymphatic: Denies easy bleeding or easy bruising Allergic/Immunologic Allergic/Immunologic: Denies lip swelling, rhinitis, throat swelling, wheezing or asthma Vital Signs Vital Signs Vital Signs: 10/04/24 10:40 Temperature 97.8 F Temperature Source Temporal Pulse Rate 119 H Respiratory Rate 16 Blood Pressure 156/112 H Blood Pressure Mean 126 Blood Pressure Source Monitor Blood Pressure Position Sitting Blood Pressure Location Right Arm Weight Weight: 190 lb Body Mass Index (BMI) 37.0 Physical Exam Const alert, oriented x3 and no apparent distress General Appearance: cooperative, comfortable and well kempt HEENT normocephalic, head/scalp atraumatic and hearing grossly normal bilaterally Eyes EOMs intact bilaterally General Eye: normal appearance of both eyes Neck full ROM and supple General: normal visual inspection Resp normal respiratory effort and normal air movement Effort and Inspection: able to speak in complete sentences Cardio regular rate, regular rhythm, S1 normal heart sound and S2 normal heart sound GI soft to palpation and non-tender Extremity General Extremity: edema Skin Wounds: wounds noted size Size: See clinical note, bed crusted, margins well approximated, no odor and surrounding erythema Neuro oriented x3, CN's II-XII intact bilaterally, moves all extremities and no focal motor deficits Psych mental status grossly normal, thought process normal, cooperative and affect normal Debridement Note Debridement Note Wound debrided: Left knee Type of Debridement: Excisional debridement Anesthesia Used: 5% Lidocaine Gel Depth: Down to and including healthy tissue and in the subcutaneous layer Percentage of wound debrided: 100 Instrument Used: 5mm curette Tissue Removed: Slough and devitalized tissue Severity: Fat Layer Exposed Amount of bleeding with debridement: Mild Bleeding Controlled with: Pressure Patient tolerated procedure: Patient tolerated procedure well Post-Debridement Measurements and Additional Note: Post-Debridement Measurements/Treatment ANTHONY - Nurse 1 - General Ulcer Assessment Start: 10/04/24 10:39 Freq: Status: Active Protocol: RUSTY Activity Type Activity Date Activity User E-sign Co-sign Detail Recorded Client Recorded Date Recorded By Document 10/04/24 10:40 CARMELA [id number] 10/04/24 10:52 CP 10/04/24 10:40 - Today's Visit Information Type of service Initial Visit Arrival Mode Ambulatory Patient Identification Verified (Name & Yes ) Patient Requires Transmission-Based No Precautions Safety Precautions NA Height and Weight Height 5 ft Weight 190 lb Weight in Pounds 190.0 lbs Weight Measurement Method Estimated by Patient Body Mass Index (BMI) 37.0 BMI Classification Obese Vital Signs Temperature (97.8 F-99.1 F) 97.8 F Temperature Source Temporal Pulse Rate (60-100) 119 H Pulse Location Monitor Respiratory Rate (12-18) 16 Respiratory rate source Observation Blood Pressure (90/60-120/80) 156/112 H Blood Pressure Mean 126 Source Monitor Position Sitting Blood Pressure Location Right Arm History Since Last Visit- (Skip if this is Patient's initial visit) Left Footwear Regular Shoe Right Footwear Regular Shoe Pain Scale: 0-10 Numeric Is Patient Pain Free? Yes Communication Assessment Preferred language Colombian Fire Systems Inspector Required No Able to Read Yes Able to Write Yes Communication Tools None Right Hearing Abillity Normal Left Hearing Abillity Normal Visual Assistive Devices None Teaching Assessment Preferences Verbal,Written, Demonstration Barriers to Learning Low Literacy Readiness To Learn Good Willingness to Engage in Self Management High Activies Readiness to Engage in Self Management High Activities Anxiety Level Anxious Cooperation Cooperative Perception Coherent Interest in Health Problem Asks Questions Education Importance Acknowledges Need Does Patient Smoke tobacco or other Yes substances Smoking Status Current every day smoker Is Patient Diabetic No Functional Assessment Recent Decline in Ability to Perform Denies Any Declines Culture/Zoroastrian/Medical Records Specialist Cultural/Zoroastrian Needs that may affect No Treatment Plan Would you allow our hospital information security architect to No meet you for the purpose of spiritual/ emotional support? Medical Records Specialist to contact place of mandaen No Teaching: Wound Center *Welcome to the Wound Center -Person Taught Patient -Teaching Method Discussion -Response to teaching Verbalize Understanding ANTHONY - Nurse 1 - General Ulcer Measurement Start: 10/04/24 10:39 Freq: Status: Active Protocol: Activity Type Activity Date Activity User E-sign Co-sign Detail Recorded Client Recorded Date Recorded By Document 10/04/24 10:40 CARMELA [id number] 10/04/24 10:52 CP 10/04/24 10:40 Wound Center Nurse 1 1. left knee -Current Size (cm) - Length 1 -Current Size (cm) - Width 1.5 -Current Size (cm) - Depth 0.1 -Total Square Cm 1.5 -Photo Taken Yes -Epithelialization None Present -Exudate Amt Small -Exudate Type Serosanguineous -Wound Margin Flat & Intact -Granulation Amt None Present (0 %) -Slough/Fibrin Yes -Necrosis Amt Large (67-100%) -Necrotic Tissue Type Adherent Slough -Structure Exposed N/A -Texture (Kiya-wound Skin Appearance) No Abnormality -Moisture (Kiya-wound Skin Appearance) No Abnormality -Color (Kiya-wound Skin Appearance) No Abnormality -Temperature (Kiya-wound Skin No Abnormality Appearance) (Pt Warm) -Tenderness on Palpation (Kiya-wound No Skin Appearance) -Ulcer Cleansing Rinsed/ Irrigated with Saline -Foul Odor after Cleansing No -Anesthetic Used 5% Lidocaine Gel WC - Nurse 2 - General Ulcer CM Notes Start: 10/04/24 10:39 Freq: Status: Active Protocol: Activity Type Activity Date Activity User E-sign Co-sign Detail Recorded Client Recorded Date Recorded By Document 10/04/24 11:06 DS [id number] 10/04/24 11:07 DS 10/04/24 11:06 Wound Center Nurse 2 -Time 11:06 -Correct Patient Yes -Correct Side, Site, Position Yes -Correct Procedure Yes -Procedure Performed Yes -Type of Procedure Debridement -Clinical Debridement Subcutaneous -Tissue Removed Subcutaneous -Post Debridement (cm) - Length 0.4 -Post Debridement (cm) - Width 1.0 -Post Debridement (cm) - Depth 0.1 -Total Square (Post) (cm) 0.40 -Area of Debridement (cm) - Length 0.4 -Area of Debridement (cm) - Width 1.0 -Total Square (Area) (cm) 0.40 -Tunneling No -Undermining/Tunneling No -Circular Undermining No -Wound/Ulcer Outcome Not Healed -Ulcer Cleansing Rinsed/ Irrigated with Saline -Foul Odor after Cleansing No -Bioengineered Tissue No -Bleeding Controlled with Pressure -Treatment Response Procedure Tolerated Well -Debridement - Subq, 1st 20sq cm Yes Pain Scale: 0-10 Numeric Is Patient Pain Free? Yes Charges/Coding Visit Charges Office Visits / Consults: 21891 OV L3 New 30min Procedures Integumentary [id number]: [id number] Royx subq tissue 20 sq cm/< Assessment/Plan Assessment/Plan (1) Laceration of left knee: CODE(S): S81.012A - Laceration without foreign body, left knee, initial encounter QUALIFIERS: Encounter type: initial encounter Qualified Code(s): S81.012A - Laceration without foreign body, left knee, initial encounter PLAN: With fat layer exposed (2) Smoker: CODE(S): F17.200 - Nicotine dependence, unspecified, uncomplicated (3) Edema of left lower extremity: CODE(S): R60.0 - Localized edema PLAN: Plan Debridement done as documented above, procedure was well-tolerated. Following debridement, good granulation noted. No significant drainage or concerns. No indication for culture at this time. As above, completed antibiotics just about 2 weeks ago. Clean daily with soap and water, apply Promogran lightly moistened. Cover with Adaptic and gauze. Double layer Tubigrip for edema management. She states that her appetite is good, optimize protein intake discussed. Vitamin C, D and zinc also recommended. Exercise and leg elevation discussed as well as smoking cessation. Again, she voiced understanding. Her questions were answered and she was advised to let us know if she had any further questions or concerns. Follow-up in 1 week or sooner if needed. This note was generated with [employer] dictation software. It may contain incorrect words, spelling, and punctuation that were not noted in checking the note before signing.
--- NOTE | 2024-10-04 15:28 | WC ---
PHOTO-LEFT KNEE 10/04/24
[2024-10-11 10:10] VITALS: BP 148/97; PULSE 106; RESP 18; TEMP 36.9; BMI 37.0
--- NOTE | 2024-10-11 10:32 | PCM.WC.PN ---
History of Present Illness Date of Service: 10/11/24 Chief Complaint: Non healing left knee wound History of Wound: Ms. Tang is a 34-year-old who presents to the wound center due to nonhealing left knee wound. Sustained on the 21 of August, she states that she was walking down an incline and fell on some rocks. Since then, has been seen in emergency rooms and treated with antibiotics twice due to concern for infection/cellulitis. Completed last antibiotic 2 weeks ago. Prior concerns for purulent drainage. She also states that she had imaging due to concern for retained foreign body. Has been doing dressing changes at home using Bactroban without any significant improvement and so was referred here. No history of diabetes. History of tobacco use and is smoked for about 16 years. She states that she is trying to cut down and now smokes half a pack a day. Otherwise, she states that she feels well. Appetite is good. Progress of Wound: Improving. No new concerns reported at this time. Objective Data Objective Data Vital Signs: Vital Signs Temp Pulse Resp BP O2 Del Method 98.4 F 106 H 18 148/97 H Room Air 10/11/24 10:10 10/11/24 10:10 10/11/24 10:10 10/11/24 10:10 10/11/24 10:10 Oxygen Delivery Method Room Air Weight: 190 lb Body Mass Index (BMI) 37.0 Charges/Coding Procedures Integumentary 111xxx-113xx: 65191 Roxy subq tissue 20 sq cm/< Physical Exam Const alert, oriented x3 and no apparent distress General Appearance: cooperative, comfortable and well kempt HEENT normocephalic, head/scalp atraumatic and hearing grossly normal bilaterally Eyes EOMs intact bilaterally General Eye: normal appearance of both eyes Neck full ROM and supple General: normal visual inspection Resp normal respiratory effort Effort and Inspection: able to speak in complete sentences GI soft to palpation and non-tender Extremity General Extremity: edema Skin Wounds: wounds noted size Size: See clinical note, bed granulating well, margins well approximated and no odor Neuro oriented x3, CN's II-XII intact bilaterally, moves all extremities and no focal motor deficits Psych mental status grossly normal, thought process normal, cooperative and affect normal Debridement Note Debridement Note Wound debrided: Left knee Type of Debridement: Excisional debridement Anesthesia Used: 5% Lidocaine Gel Depth: Down to and including healthy tissue and in the subcutaneous layer Percentage of wound debrided: 100 Instrument Used: 3mm curette Tissue Removed: Devitalized tissue Severity: Fat Layer Exposed Amount of bleeding with debridement: Mild Bleeding Controlled with: Pressure Patient tolerated procedure: Patient tolerated procedure well Post-Debridement Measurements and Additional Note: Post-Debridement Measurements/Treatment - Nurse 1 - General Ulcer Assessment Start: 10/04/24 10:39 Freq: Status: Active Protocol: RUSTY Activity Type Activity Date Activity User E-sign Co-sign Detail Recorded Client Recorded Date Recorded By Document 10/04/24 10:40 CP [id number] 10/04/24 10:52 CP Document 10/11/24 10:10 DS [id number] 10/11/24 10:23 DS 10/04/24 10/11/24 10:40 10:10 - Today's Visit Information Type of service Initial Visit Follow-up Visit (Physician/[employer]AT [employer] DECK HAND ) Arrival Mode Ambulatory Ambulatory Patient Identification Verified (Name & Yes Yes ) Patient Requires Transmission-Based No No Precautions Safety Precautions NA Fall Prevention Height and Weight Height 5 ft Weight 190 lb Weight in Pounds 190.0 lbs Weight Measurement Method Estimated by Patient Body Mass Index (BMI) 37.0 37.0 BMI Classification Obese Obese Vital Signs Temperature (97.8 F-99.1 F) 97.8 F 98.4 F Temperature Source Temporal Temporal Pulse Rate (60-100) 119 H 106 H Pulse Location Monitor Monitor Respiratory Rate (12-18) 16 18 Respiratory rate source Observation Observation Oxygen Delivery Method Room Air Blood Pressure (90/60-120/80) 156/112 H 148/97 H Blood Pressure Mean (mm Hg) 126 114 Source Monitor Monitor Position Sitting Sitting Blood Pressure Location Right Arm Right Arm History Since Last Visit- (Skip if this is Patient's initial visit) Have you changed medications since your No last visit? Any new allergies or adverse reactions No Had a fall/change in ADL's that may No increase risk of falls Signs or symptoms of abuse and/or No neglect since last visit Have you been in the hospital since your No last visit? Has dressing in place as prescribed Yes Has compression in place as prescribed N/A Has offloadiing in place as prescribed N/A Experienced any changes in pain level or No management Left Footwear Regular Shoe Regular Shoe Right Footwear Regular Shoe Regular Shoe Pain Scale: 0-10 Numeric Is Patient Pain Free? Yes Yes Communication Assessment Preferred language Malay Automotive Sales Manager Required No Able to Read Yes Able to Write Yes Communication Tools None Right Hearing Abillity Normal Left Hearing Abillity Normal Visual Assistive Devices None Teaching Assessment Preferences Verbal,Written, Demonstration Barriers to Learning Low Literacy Readiness To Learn Good Willingness to Engage in Self Management High Activies Readiness to Engage in Self Management High Activities Anxiety Level Anxious Cooperation Cooperative Perception Coherent Interest in Health Problem Asks Questions Education Importance Acknowledges Need Does Patient Smoke tobacco or other Yes substances Smoking Status Current every day smoker Is Patient Diabetic No Functional Assessment Recent Decline in Ability to Perform Denies Any Declines Culture/Oriental Orthodox/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 Coffee Bar Attendant to contact place of sabianist No Teaching: Wound Center *Welcome to the Wound Center -Person Taught Patient -Teaching Method Discussion -Response to teaching Verbalize Understanding WC - Nurse 1 - General Ulcer Measurement Start: 10/04/24 10:39 Freq: Status: Active Protocol: Activity Type Activity Date Activity User E-sign Co-sign Detail Recorded Client Recorded Date Recorded By Document 10/04/24 10:40 CP [id number] 10/04/24 10:52 CP Document 10/11/24 10:10 DS [id number] 10/11/24 10:23 DS 10/04/24 10/11/24 10:40 10:10 Wound Center Nurse 1 1. left knee -Current Size (cm) - Length 1 0.3 -Current Size (cm) - Width 1.5 1.1 -Current Size (cm) - Depth 0.1 0.1 -Total Square Cm 1.5 0.33 -Date of Last Picture (Recall this 10/11/24 field) -Photo Taken Yes Yes -Epithelialization None Present -Tunneling No -Undermining/Tunneling No -Circular Undermining No -Exudate Amt Small None Present -Exudate Type Serosanguineous -Wound Margin Flat & Intact Distinct, Outline Attached -Granulation Amt None Present (0 %) -Slough/Fibrin Yes -Necrosis Amt Large (67-100%) -Necrotic Tissue Type Adherent Slough -Structure Exposed N/A -Texture (Kiya-wound Skin Appearance) No Abnormality Assessed -Moisture (Kiya-wound Skin Appearance) No Abnormality Assessed -Color (Kiya-wound Skin Appearance) No Abnormality Assessed -Temperature (Kiya-wound Skin No Abnormality No Abnormality Appearance) (Pt Warm) (Pt Warm) -Tenderness on Palpation (Kiya-wound No No Skin Appearance) -Ulcer Cleansing Rinsed/ Soap and Water Irrigated with Saline -Foul Odor after Cleansing No No -Anesthetic Used 5% Lidocaine 5% Lidocaine Gel Gel WC - Nurse 2 - General Ulcer CM Notes Start: 10/04/24 10:39 Freq: Status: Active Protocol: Activity Type Activity Date Activity User E-sign Co-sign Detail Recorded Client Recorded Date Recorded By Document 10/04/24 11:06 DS [id number] 10/04/24 11:07 DS Document 10/11/24 10:29 GM [id number] 10/11/24 10:30 GM 10/04/24 10/11/24 11:06 10:29 Wound Center Nurse 2 1. left knee -Time 11:06 10:29 -Correct Patient Yes Yes -Correct Side, Site, Position Yes Yes -Correct Procedure Yes Yes -Procedure Performed Yes Yes -Type of Procedure Debridement Debridement -Clinical Debridement Subcutaneous Subcutaneous -Tissue Removed Subcutaneous Subcutaneous -Post Debridement (cm) - Length 0.4 -Post Debridement (cm) - Width 1.0 -Post Debridement (cm) - Depth 0.1 -Total Square (Post) (cm) 0.40 -Area of Debridement (cm) - Length 0.4 -Area of Debridement (cm) - Width 1.0 -Total Square (Area) (cm) 0.40 -Tunneling No No -Undermining/Tunneling No No -Circular Undermining No No -Wound/Ulcer Outcome Not Healed Not Healed -Ulcer Cleansing Rinsed/ Rinsed/ Irrigated with Irrigated with Saline Saline -Foul Odor after Cleansing No No -Bioengineered Tissue No No -Bleeding Controlled with Pressure Pressure -Treatment Response Procedure Procedure Tolerated Well Tolerated Well -Offloading No -Debridement - Subq, 1st 20sq cm Yes Yes Pain Scale: 0-10 Numeric Is Patient Pain Free? Yes Yes WC - Nurse 3 - General Ulcer D/C NN Start: 10/04/24 10:39 Freq: Status: Active Protocol: Activity Type Activity Date Activity User E-sign Co-sign Detail Recorded Client Recorded Date Recorded By Document 10/04/24 11:27 CP [id number] 10/04/24 11:29 CP 10/04/24 11:27 Wound Care Center Nurse 3 1. left knee -Ulcer Cleansing Rinsed/ Irrigated with Saline -Primary Dressing Applied Promogran -Primary Dressing Covered/Secured with Dry Gauze, Secured with Tape -Other Covering adaptic -Promogran 1 Pain Scale: 0-10 Numeric Is Patient Pain Free? Yes WC - Visit Discharge Discharge Condition Stable Ambulatory Status Ambulatory Transportation Private Auto Clinical Summary of Care Provided Yes Assessment/Plan Assessment/Plan (1) Laceration of left knee: CODE(S): S81.012A - Laceration without foreign body, left knee, initial encounter QUALIFIERS: Encounter type: initial encounter Qualified Code(s): S81.012A - Laceration without foreign body, left knee, initial encounter PLAN: With fat layer exposed (2) Smoker: CODE(S): F17.200 - Nicotine dependence, unspecified, uncomplicated (3) Edema of left lower extremity: CODE(S): R60.0 - Localized edema PLAN: Plan Debridement done as documented above, procedure was well-tolerated. Improving. No acute concerns reported at this time. Continue daily cleaning with soap and water, apply Promogran lightly moistened. Cover with Adaptic and gauze. Double layer Tubigrip for edema management. Continue optimized protein intake, exercise, leg elevation and smoking cessation. Her questions were answered and she was advised to let us know if she had any further questions or concerns. Follow-up in 1 week or sooner if needed. This note was generated with [employer] dictation software. It may contain incorrect words, spelling, and punctuation that were not noted in checking the note before signing.
--- NOTE | 2024-10-12 09:28 | WC ---
PHOTO-LEFT KNEE 10/11/24
== END 2024-10-11 23:59 | disposition home or self-care (01) ==
LOC: WC 10:15
PROVIDERS: PCP Internal Medicine; Referring Provider Internal Medicine; Visit Provider Internal Medicine
DX: S81.012A Laceration without foreign body, left knee, initial encounter (principal); Z86.16 Personal history of COVID-19; K21.9 Gastro-esophageal reflux disease without esophagitis; W10.2XXA Fall (on)(from) incline, initial encounter; F17.210 Nicotine dependence, cigarettes, uncomplicated
CPT/HCPCS: 11042; 99213; G0463

== ENCOUNTER 2024-10-18 11:20 | Outpatient (RCR) | payer MEDICAID, SELFPAY ==
[2024-10-18 11:33] VITALS: BP 142/100; PULSE 92; RESP 18; TEMP 36.4
--- NOTE | 2024-10-18 12:52 | PN.PCM_ITS ---
History of Present Illness Date of Service: 10/18/24 Chief Complaint: Non healing left knee wound History of Wound: Ms. Tang is a 34-year-old who presents to the wound center due to nonhealing left knee wound. Sustained on the 21 of August, she states that she was walking down an incline and fell on some rocks. Since then, has been seen in emergency rooms and treated with antibiotics twice due to concern for infection/cellulitis. Completed last antibiotic 2 weeks ago. Prior concerns for purulent drainage. She also states that she had imaging due to concern for retained foreign body. Has been doing dressing changes at home using Bactroban without any significant improvement and so was referred here. No history of diabetes. History of tobacco use and is smoked for about 16 years. She states that she is trying to cut down and now smokes half a pack a day. Otherwise, she states that she feels well. Appetite is good. Progress of Wound: No new concerns reported. Scabbing again noted, she states that she has been doing dressing changes as recommended. Minimal area though left beneath the scabbing Objective Data Objective Data Vital Signs: Vital Signs Temp Pulse Resp BP 97.5 F L 92 18 142/100 H 10/18/24 11:33 10/18/24 11:33 10/18/24 11:33 10/18/24 11:33 Charges/Coding Procedures Integumentary 111xxx-113xx: 42281 Roxy subq tissue 20 sq cm/< (Selective/Superficial debridement done today) Physical Exam Const alert, oriented x3 and no apparent distress General Appearance: cooperative, comfortable and well kempt HEENT normocephalic, head/scalp atraumatic and hearing grossly normal bilaterally Eyes EOMs intact bilaterally General Eye: normal appearance of both eyes Neck full ROM and supple General: normal visual inspection Resp normal respiratory effort Effort and Inspection: able to speak in complete sentences GI soft to palpation and non-tender Extremity General Extremity: edema Skin Wounds: wounds noted size Size: See clinical note, bed granulating well, margins well approximated and no odor Neuro oriented x3, CN's II-XII intact bilaterally, moves all extremities and no focal motor deficits Psych mental status grossly normal, thought process normal, cooperative and affect normal Debridement Note Debridement Note Wound debrided: Left knee Type of Debridement: Selective debridement Anesthesia Used: 5% Lidocaine Gel Depth: Down to and including healthy tissue Percentage of wound debrided: 100 Instrument Used: 3mm curette Tissue Removed: Devitalized Tissue Severity: Limited To Skin Breakdown Amount of bleeding with debridement: Mild Bleeding Controlled with: Pressure Patient tolerated procedure: Patient tolerated procedure well Post-Debridement Measurements and Additional Note: Post-Debridement Measurements/Treatment - Nurse 1 - General Ulcer Assessment Start: 10/18/24 11:33 Freq: Status: Active Protocol: RUSTY Activity Type Activity Date Activity User E-sign Co-sign Detail Recorded Client Recorded Date Recorded By Document 10/18/24 11:33 RB [id number] 10/18/24 11:35 RB 10/18/24 11:33 WC - Today's Visit Information Type of service Follow-up Visit (Physician/BAKER HELPER ) Arrival Mode Ambulatory Transfer Assistance None Patient Identification Verified (Name & Yes ) Patient Requires Transmission-Based No Precautions Vital Signs Temperature (97.8 F-99.1 F) 97.5 F L Temperature Source Temporal Pulse Rate (60-100) 92 Pulse Location Monitor Respiratory Rate (12-18) 18 Respiratory rate source Observation Blood Pressure (90/60-120/80) 142/100 H Blood Pressure Mean (mm Hg) 114 Source Monitor Position Sitting Blood Pressure Location Left Arm History Since Last Visit- (Skip if this is Patient's initial visit) Have you changed medications since your No last visit? Any new allergies or adverse reactions No Had a fall/change in ADL's that may No increase risk of falls Signs or symptoms of abuse and/or No neglect since last visit Have you been in the hospital since your No last visit? Has dressing in place as prescribed Yes Has compression in place as prescribed Yes Has offloadiing in place as prescribed N/A Experienced any changes in pain level or No management Left Footwear Regular Shoe Right Footwear Regular Shoe Pain Scale: 0-10 Numeric Is Patient Pain Free? Yes - Nurse 1 - General Ulcer Measurement Start: 10/18/24 11:33 Freq: Status: Active Protocol: Activity Type Activity Date Activity User E-sign Co-sign Detail Recorded Client Recorded Date Recorded By Document 10/18/24 11:33 RB [id number] 10/18/24 11:35 RB 10/18/24 11:33 Wound Center Nurse 1 1. left knee -Combined with other wound No -Current Size (cm) - Length 0.3 -Current Size (cm) - Width 0.8 -Current Size (cm) - Depth 0.1 -Total Square Cm 0.24 -Photo Taken Yes -Tunneling No -Undermining/Tunneling No -Circular Undermining No -Exudate Amt Medium -Exudate Type Serosanguineous -Wound Margin Distinct, Outline Attached -Granulation Amt Medium (34-66%) -Granulation Quality Comstock -Slough/Fibrin Yes -Necrosis Amt Small (1-33%) -Necrotic Tissue Type Adherent Slough -Structure Exposed N/A -Texture (Kiya-wound Skin Appearance) Assessed, Scarring -Moisture (Kiya-wound Skin Appearance) Assessed -Color (Kiya-wound Skin Appearance) Assessed -Temperature (Kiya-wound Skin No Abnormality Appearance) (Pt Warm) -Tenderness on Palpation (Kiya-wound No Skin Appearance) -Ulcer Cleansing Wound Cleanser -Foul Odor after Cleansing No -Anesthetic Used 5% Lidocaine Gel WC - Nurse 2 - General Ulcer CM Notes Start: 10/18/24 11:33 Freq: Status: Active Protocol: Activity Type Activity Date Activity User E-sign Co-sign Detail Recorded Client Recorded Date Recorded By Document 10/18/24 11:37 [id number] 10/18/24 11:40 10/18/24 11:37 Wound Center Nurse 2 -Time 11:37 -Correct Patient Yes -Correct Side, Site, Position Yes -Correct Procedure Yes -Procedure Performed Yes -Type of Procedure Debridement -Clinical Debridement Epidermis / Dermis -Tissue Removed Epidermis -Post Debridement (cm) - Length 0.1 -Post Debridement (cm) - Width 0.1 -Post Debridement (cm) - Depth 0.1 -Total Square (Post) (cm) 0.01 -Area of Debridement (cm) - Length 0.1 -Area of Debridement (cm) - Width 0.1 -Total Square (Area) (cm) 0.01 -Tunneling No -Undermining/Tunneling No -Circular Undermining No -Wound/Ulcer Outcome Not Healed -Ulcer Cleansing Rinsed/ Irrigated with Saline -Foul Odor after Cleansing No -Bioengineered Tissue No -Bleeding Controlled with NA -Treatment Response Procedure Tolerated Well -Debridement - Open, 1st 20sq cm Yes Pain Scale: 0-10 Numeric Is Patient Pain Free? Yes WC - Nurse 3 - General Ulcer D/C NN Start: 10/18/24 11:33 Freq: Status: Active Protocol: Activity Type Activity Date Activity User E-sign Co-sign Detail Recorded Client Recorded Date Recorded By Document 10/18/24 11:43 [id number] 10/18/24 11:44 KW 10/18/24 11:43 Wound Care Center Nurse 3 1. left knee -Primary Dressing Applied NonAdherent Contact Layer, Promogran -Primary Dressing Covered/Secured with Dry Gauze & Roll Gauze, Secured with Tape -Promogran 1 LLE -Tubular Bandage Double Layer -Size of Tubigrip Used Size E -Size E ($) 2 Pain Scale: 0-10 Numeric Is Patient Pain Free? Yes WC - Visit Discharge Discharge Condition Stable Ambulatory Status Ambulatory Transportation Private Auto Medication Reconcilliation completed & No provided to patient/care provider Clinical Summary of Care Provided Yes Assessment/Plan Assessment/Plan (1) Laceration of left knee: CODE(S): S81.012A - Laceration without foreign body, left knee, initial encounter QUALIFIERS: Encounter type: initial encounter Qualified Code(s): S81.012A - Laceration without foreign body, left knee, initial encounter PLAN: With fat layer exposed (2) Smoker: CODE(S): F17.200 - Nicotine dependence, unspecified, uncomplicated (3) Edema of left lower extremity: CODE(S): R60.0 - Localized edema PLAN: Plan Debridement done as documented above, procedure was well-tolerated. Minimal area left beneath the scab. Strongly advised that she clean daily prior to reapplying dressings. Continue daily cleaning with soap and water, apply Promogran lightly moistened. Cover with Adaptic and gauze. Double layer Tubigrip for edema management. Continue optimized protein intake, exercise, leg elevation and smoking cessation. Her questions were answered and she was advised to let us know if she had any further questions or concerns. Follow-up in 1 week or sooner if needed. This note was generated with [employer] dictation software. It may contain incorrect words, spelling, and punctuation that were not noted in checking the note before signing.
--- NOTE | 2024-10-18 13:23 | WC ---
PHOTO-LEFT KNEE 10/18/24
== END 2024-11-11 23:59 | disposition home or self-care (01) ==
LOC: WC 11:20
PROVIDERS: PCP Internal Medicine; Referring Provider Internal Medicine; Visit Provider Internal Medicine
DX: S81.012A Laceration without foreign body, left knee, initial encounter (principal); F17.200 Nicotine dependence, unspecified, uncomplicated; W10.2XXA Fall (on)(from) incline, initial encounter
CPT/HCPCS: 97597